=== PATIENT | male | born 1950 | race Caucasian/White ===

== ENCOUNTER 2022-12-01 12:14 | Emergency (ER) | payer MEDICARE, SELFPAY ==
[2022-12-01 12:35] VITALS: BP 127/69; PULSE 63; RESP 18; TEMP 36.1; O2SAT 99
--- NOTE | 2022-12-01 12:51 | ED.NAVMDI ---
HPI - Nausea/Vomiting/Diarrhea General Chief complaint: Nausea/Vomiting/Diarrhea Stated complaint: diarrhea History of Present Illness HPI Narrative: PATIENT PRESENTS WITH A HISTORY OF DIVERTICULOSIS AND THINKS HE IS HAVING A DIVERTICULITIS FLARE AT THIS TIME. GENERALIZED ABDOMINAL PAIN DIARRHEA ON OFF FOR THE PAST 2 WEEKS NO BLOOD IN STOOLS NO MUCUS IN STOOLS. NO HIGH FEVER. PATIENT STATES HE HAD MORE PEANUTS THAN USUAL AND THINKS THIS HE TRIGGERED HIS FLARE. PATIENT STATES HE HAS A GI SPECIALIST IN [place] AND HE WILL CALL [facility] FRIDAY MORNING. Related Data Home Medications Medication Instructions Recorded Confirmed amlodipine 5 mg tablet 5 mg PO DAILY 10/27/19 10/27/19 bupropion HCl 300 mg 24 hr tablet, 300 mg PO QAM 10/27/19 10/27/19 extended release clonazepam 1 mg tablet 1 mg PO DAILY PRN 10/27/19 10/27/19 gabapentin 300 mg capsule 300 mg PO TID 10/27/19 10/27/19 lamotrigine 100 mg tablet 100 mg PO TID 10/27/19 10/27/19 (Lamictal) lisinopril 10 mg tablet 10 mg PO DAILY 10/27/19 10/27/19 meloxicam 15 mg tablet 15 mg PO DAILY 10/27/19 10/27/19 metoprolol tartrate 25 mg tablet 25 mg PO DAILY 10/27/19 10/27/19 omeprazole 20 mg capsule,delayed 20 mg PO DAILY 10/27/19 10/27/19 release pravastatin 40 mg tablet 40 mg PO DAILY 10/27/19 10/27/19 tramadol 50 mg tablet 50 mg PO Q6H PRN 10/27/19 10/27/19 Allergies Allergy/AdvReac Type Severity Reaction Status Date / Time citalopram Allergy Unknown Hives Verified 04/01/17 06:57 hydralazine Allergy Unknown Hives Verified 04/01/17 14:05 Penicillins Allergy Unknown hives Verified 04/01/17 06:57 CITALOPRAM HYDROBROMIDE Allergy Intermediate hives Uncoded 09/29/15 16:40 Review of Systems Review of Systems: CONSTITUTIONAL: DENIES FEVER, CHILLS, OR SWEATS. EYES: DENIES VISUAL CHANGES, REDNESS, OR DISCHARGE. ENT: DENIES RHINORRHEA, CONGESTION, SORE THROAT, OR OTALGIA. CARDIOVASCULAR: DENIES CHEST PAIN, PALPITATIONS, OR EDEMA. RESPIRATORY: DENIES COUGH OR DYSPNEA. GASTROINTESTINAL: DENIES ABDOMINAL PAIN, NAUSEA, VOMITING, OR DIARRHEA. GENITOURINARY: DENIES DYSURIA OR HEMATURIA. SKIN: DENIES RASH OR ITCHING. MUSCULOSKELETAL: DENIES BACK PAIN, JOINT PAIN, OR MYALGIA. NEUROLOGIC: DENIES HEADACHE, NUMBNESS, OR WEAKNESS. PSYCHIATRIC: DENIES ANXIETY OR DEPRESSION. [facility] Family History Family History (Updated 04/01/17 @ 06:51 by DOCTOR UNKNOWN) Sibling Diabetes mellitus Family history of mental disorder, Onset Age: 63 Family history of cardiovascular disease, Onset Age: 63 Acute myocardial infarction Family history of malignant neoplasm Mother Family history of mental disorder, Onset Age: 56 Other Family history of seizure disorder Social History Social History Smoking status: Former smoker Smoking end date: 03/10/78 Alcohol intake: current Comments AT TIME OF SIGNATURE, AGREE WITH NURSING PAST MEDICAL, SURGICAL, SOCIAL AND FAMILY HISTORY. THERE IS NO RELEVANT FAMILY HISTORY PERTINENT TO THE PRESENTING COMPLAINT Exam Narrative: GENERAL: WELL-APPEARING, WELL-NOURISHED, AND IN NO ACUTE DISTRESS. HEAD: NORMOCEPHALIC, ATRAUMATIC. EYES: PERRLA AND EOMI. ENT: NARES CLEAR, NO RHINORRHEA OR EPISTAXIS. MUCOUS MEMBRANES MOIST. NECK: SUPPLE. CHEST: CLEAR TO AUSCULTATION. NO RESPIRATORY DISTRESS. HEART: REGULAR RATE AND RHYTHM. NO MURMUR HEARD. NORMAL PERIPHERAL PULSES. ABDOMEN: SOFT, NONTENDER, NONDISTENDED, NORMAL ACTIVE BOWEL SOUNDS. EXTREMITIES: NORMAL RANGE OF MOTION. NO EDEMA. SKIN: WARM, DRY, NO RASH. NEURO: NO FOCAL DEFICITS. ALERT AND ORIENTED X3. JYOTI COMA SCALE EYE OPENING: SPONTANEOUS 4 JYOTI COMA SCALE MOTOR: OBEYS COMMANDS 6 JYOTI COMA SCALE VERBAL: ORIENTED 5 JYOTI COMA SCALE TOTAL 15 Course Course Level of Care: Express Care Visit Vital Signs Vital signs: Vital Signs Temperature 36.1 C L 12/01/22 12:35 Pulse Rate 63 12/01/22 12:35 Respiratory Rate 18 12/01/22 12:35 Blood Pressur
== END 2022-12-01 13:00 | disposition home or self-care (01) ==
PROVIDERS: Emergency Provider Nurse Practitioner Family
DX: K57.92 Diverticulitis of intestine, part unspecified, without perforation or abscess without bleeding (principal); R19.7 Diarrhea, unspecified; Z87.891 Personal history of nicotine dependence
CPT/HCPCS: 99213; G0463

== ENCOUNTER 2024-07-15 17:44 | Emergency (ER) | payer MEDICARE, SELFPAY ==
--- NOTE | ~2024-07-15 | XR_ITS ---
Exam: Abdomen 1V HISTORY: abdominal pain COMPARISON: None. TECHNIQUE: Supine images of the abdomen FINDINGS: Bowel gas pattern is nonspecific and non-obstructive. There is no free air or deep sulci. No pathologic calcifications are seen. Lung bases are unremarkable. IMPRESSION: Nonspecific, nonobstructive bowel gas pattern. If clinical suspicion persists, cross-sectional imaging (contrast enhanced CT examination of the abdo men and pelvis) is suggested for further evaluation. Reviewed, dictated and finalized at location A. IMPRESSION: Nonspecific, nonobstructive bowel gas pattern. If clinical suspicion persists, cross-sectional imaging (contrast enhanced CT e xamination of the abdomen and pelvis) is suggested for further evaluation.
--- OUTSIDE RECORDS SUMMARY | 2024-07-15 17:47 | XMS_ITS | Encounter Summary ---
Author Organization [facility] Address [address] [place] [address] Care Team Providers Care Photograph Editor Name Role Phone Mirian Wallace MD Primary Care Provider [phone] Reason for Visit * Reason Onset Date Comments Sheduling Procedure 12/18/2023 Encounter Details Date Type Department Care Team (Late st Contact Info) Description 12/18/2023 Telephone [facility] Heart and Vascular - [place] [address] [place] [address] Bill De Anda MD [address] [place] [address] Sheduling Procedure Social History Tobacco Use Types Packs/Day Years Used Date Smoking Tobacco: Former Cigarettes 2 20 1 04/28/1957 - 02/25/1978 Smokeless Tobacco: Never Alcohol Use Standard Drinks/Week Comments Yes 24 (1 standard drink = 0.6 oz pu re alcohol) Financial Resource Strain Answer Date R ecorded How hard is it for you to pa y for the very basics like food, housing, medical care, and heating? Somewhat hard 01/11/2022 Food Insecurity Answer Date Recorded In the past 12 months, have you worried that your food would run out before you had money to buy more? Never true 01/11/2022 In the past 12 months, did y ou run out of food and didn't have money to buy more? Never true 01/11/2022 Transportation Needs Answer Date Record ed In the past 12 months, has l ack of transportation kept you from medical appointments or from getting medications? No 01/11/2022 Lack of Transportation (Non-Medical) Not on file 01/11/2022 Feeling Safe Answer Date Recorded Are you in a relationship wi th someone who hurts you emotionally and/or physically? 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 documented in this encounter Plan of Treatment Upcoming Encounters Date Type Department Care Team (Late st Contact Info) Description 08/11/2024 3:15 PM CDT Office Visit [facility] HEART AND VASCULAR EP AT [address] [place] [phone] Bill De Anda MD [address] [place] [address] [address] [place] [phone] 08/18/2024 11:30 AM CDT Office Visit [facility] Primary Care - [address] [address] Mirian Wallace MD [address] [place] [address] 09/15/2024 11:30 AM CDT Office Visit [facility] HEART AND VASCULAR - [address] [address] Flo Donahue MD [facility] [address] [facility] [address] [place] [address] 09/21/2024 11:00 AM CDT Office Visit [facility] Neurology [address] [facility] [address] [place] [address] Ashley Holloway, [facility] [address] [facility] [address] [place] [address] 10/05/2024 1:15 PM CDT Office Visit [facility] GASTROENTEROLOGY - [address] [facility] [address] [address] [facility] [address] [place] [phone] Konrad Aburto, [facility] [address] [facility] [address] [place] [address] 11/26/2024 1:00 PM CDT Office Visit [facility] Pulmonology [facility] [address] [facility] [address] [place] [address] Silvio Avalos, [facility] [address] [place] [phone] 12/27/2024 1:30 PM CDT Office Visit [facility] HEART AND VASCULAR EP AT [facility] [address] [facility] [address] [place] [address] Guerrero Lind MD [address] [facility] [address] [place] [address] 09/22/2025 11:00 AM CDT Office Visit [facility] Neurology [address] [facility] [address] [place] [address] Carmine Castano MD [address] [facility] [address] [place] [address] documented as of this encounter Visit Diagnoses Not on filedocumented in this encounter Additional Health Concerns Infection Onset Date Last Indicated Resolved Time R/O C. diff 01/23/2024 01/22/2024 01/23/2024 5:28 PM ASSISTANT SUPERINTENDENT FOR CURRICULUM Assessment Noted Time PHQ-9 Depression Total Score: 2 08/08/19 24 3:47 PM CDT documented as of this encounter Care Teams Photograph Editor Relationship Specialty [place] [address] [address] PCP - General 05/07/12 documented as of this encounter
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
--- OUTSIDE RECORDS SUMMARY | 2024-07-15 17:47 | XMS_ITS | Encounter Summary ---
Author Organization [facility] Address 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 Gender Identity Not on file Sexual Orientation Not on file documented as of this encounter Plan of Treatment Upcoming Encounters Date Type Department Care Team (Late st Contact Info) Description 08/11/2024 3:15 PM CDT Office Visit [facility] HEART AND VASCULAR EP AT [address] [place] [address] Bill De Anda MD [facility] [address] [facility] 2014 [place] [address] 08/18/2024 11:30 AM CDT Office Visit [facility] Primary Care - [facility] [id number] [place] [address] [place] [address] [phone] 09/15/2024 11:30 AM CDT Office Visit [facility] HEART AND VASCULAR - [place] [address] [address] [facility] 100 [place] [address] Flo Donahue MD [address] [facility] [address] [place] [address] 09/21/2024 11:00 AM CDT Office Visit [facility] Neurology [facility] [address] [facility] [address] [place] [address] Ashley Holloway, [facility] [address] [facility] [address] [place] [address] 10/05/2024 1:15 PM CDT Office Visit [facility] GASTROENTEROLOGY - [address] [facility] [address] [phone] Konrad Aburto, [facility] [address] [facility] 102 [place] [address] 11/26/2024 1:00 PM CDT Office Visit [facility] Pulmonology [facility] [address] [facility] [address] [place] [address] Silvio Avalos, [facility] [address] [facility] [place] [address] 12/27/2024 1:30 PM CDT Office Visit [facility] HEART AND VASCULAR EP AT [facility] [address] [facility] [address] [place] [address] Guerrero Lind MD [address] [facility] [address] [place] [address] 09/22/2025 11:00 AM CDT Office Visit [facility] Neurology [address] [facility] [address] [place] [address] Carmine Castano MD [address] [facility] [address] [place] [address] documented as of this encounter Visit Diagnoses Diagnosis Urticaria, unspecified- Primary documented in this encounter Additional Health Concerns Infection Onset Date Last Indicated Resolved Time C Diff Comment:10/26/15 08/08/2017-outside 60 days from last positive culture [email or web address].resolved. 10/27/2015 10/27/2015 06/0 03/2017 3:50 PM CDT R/O COVID-19 12/10/2019 12/10/2019 12/13/2019 1:16 AM CDT COVID-19 12/11/2019 12/11/2019 01/10/2020 1:16 AM AUTO PAINTER HELPER R/O C. diff 08/04/2021 08/03/2021 08/04/2021 2:45 PM CDT R/O Respiratory 05/13/2022 05/13/2022 05/14/2022 1 2:32 AM AUTO PAINTER HELPER R/O GI Pathogen 05/13/2022 05/13/2022 05/14/2022 1 2:32 AM AUTO PAINTER HELPER R/O C. diff 12/09/2022 12/09/2022 12/10/2022 1:06 PM CDT R/O C. diff 01/23/2024 01/22/2024 01/23/2024 5:28 PM AUTO PAINTER HELPER documented as of this encounter Care Teams Dye Range Tender Relationship Specialty [place] [address] [facility] 100 [place] [address] PCP - General 05/07/12 documented as of this encounter
--- OUTSIDE RECORDS SUMMARY | 2024-07-15 17:47 | XMS_ITS | Encounter Summary ---
Author Organization [facility] Address [address] [place] [address] Care Team Providers Care Masonry Instructor Name Role Phone Mirian Wallace MD Primary Care Provider [phone] Encounter Details Date Type Department Care Team (Late st Contact Info) Description 07/14/2024 Abstract [facility] Primary Care - [facility] [address] [address] [place] [address] [address] Social History Tobacco Use Types Packs/Day Years [...] on file Legal Sex Male 4:59 AM SHOP HELPER Gender Identity Not on file Sexual Orientation Not on file documented as of this encounter Plan of Treatment Upcoming Encounters Date Type Department Care Team (Late st Contact Info) Description 08/11/2024 3:15 PM CDT Office Visit [facility] HEART AND VASCULAR EP AT [facility] [address] [facility] [address] [place] [phone] Bill De Anda MD [address] [facility] [address] [place] [address] 08/18/2024 11:30 AM CDT Office Visit [facility] Primary Care - [facility] [address] [place] [address] [place] [address] [address] 09/15/2024 11:30 AM CDT Office Visit [facility] HEART AND VASCULAR [place] [id number] [place] [address] Flo Donahue MD [address] [facility] [address] [place] [address] 09/21/2024 11:00 AM CDT Office Visit [facility] Neurology [address] [facility] [address] [place] [address] Ashley Holloway, [facility] [address] [facility] [address] [place] [address] 10/05/2024 1:15 PM CDT Office Visit [facility] GASTROENTEROLOGY - [address] [facility] 102 [address] [facility] 102 [place] [address] Konrad Aburto, [facility] [address] [facility] 102 [place] [address] 11/26/2024 1:00 PM CDT Office Visit [facility] Pulmonology [facility] [address] [facility] [address] [place] [address] Silvio Avalos, [facility] [address] [facility] [place] [address] 12/27/2024 1:30 PM CDT Office Visit [facility] HEART AND VASCULAR EP AT [facility] [address] [facility] [address] [place] [address] Guerrero Lind MD [address] [facility] [address] [place] [address] 09/22/2025 11:00 AM CDT Office Visit [facility] Neurology [address] [facility] [address] [place] [address] Carmine Castano MD [address] [facility] [address] [place] [address] documented as of this encounter Visit Diagnoses Not on filedocumented in this encounter Care Teams Masonry Instructor Relationship Specialty [place] [address] [facility] [address] [place] [address] PCP - General 05/07/12 documented as of this encounter
--- OUTSIDE RECORDS SUMMARY | 2024-07-15 17:47 | XMS_ITS | Clinical Summary ---
Author Organization [facility] Address [address] [place] [address] Care Team Providers Care Director Of Infection Prevention Name Role Phone Unavailable Primary Care Provider Unavailabl e Social History Tobacco Use Types Packs/Day Years Used Date Smoking Tobacco: Never Assessed Sex and Gender Information Value Date Recorded Sex Assigned at Not on file Legal Sex Male 10:17 PM CDT Gender Identity Not on file Sexual Orientation Not on file Plan of Treatment Health Maintenance Due Date Last Done Comments Hepatitis C Virus (HCV) Screening 1950 Colonoscopy 1994 Colorectal Cancer Screening 1994 Cologuard 11/13/1999 Immunochemical Fecal Occult Blood 11/13/1999 Pneumococcal Immunization (5 0+ years) (1 of 1 - PCV) 11/13/1999 Zoster Immunization (1 of 2) 11/13/1999 Influenza Immunization (#1) 11/09/202312/09, 12/19/2014, 02/20/2013 SARS-COV-2 Immunization ( season) 2023 12/07/2020, 05/30/2020, 04/19/2020 Respiratory Syncytial Virus (RSV) Immunization (Adult) (1 - 1-dose 75+ series) 2024 DTaP/Tdap/Td Immunization Discontinued 02/17/2017 TdaP Immunization Completed 02/17/2017 Hepatitis B Immunization Aged Out No longer eligible based on patient's age to complete this topic Meningococcal Immunization (ACWY) Aged Out No longer eligible based on patient's age to complete this topic Rotavirus Immunization Aged Out No lo nger eligible based on patient's age to complete this topic
--- OUTSIDE RECORDS SUMMARY | 2024-07-15 17:47 | XMS_ITS | Continuity of Care Document ---
Author Organization [facility] Address [address] [place] [address] [address] [place] [address] Phone Care Team Providers Care Upholsterer Outside Name Role Phone Short PT, Kathleen Unavailable Unavailable Procedures Procedure Date Therapeutic Activities Neuromuscular Re-Ed Manual Therapy Manual Therapy Neuromuscular Re-Ed Hot or Cold Pack Therapeutic Activities Therapeutic Activities Neuromuscular Re-Ed Manual Therapy Neuromuscular Re-Ed Manual Therapy Hot or Cold Pack Neuromuscular Re-Ed Manual Therapy Therapeutic Activities Manual Therapy Therapeutic Activities Hot or Cold Pack Therapeutic Activities Hot or Cold Pack Neuromuscular Re-Ed Manual Therapy Therapeutic Activities PT Evaluation Moderate Complexity Manual Therapy Therapeutic Exercise THERAPEUTIC EXERCISES NEUROMUSCULAR RE-ED Carrying, Moving And Handling Objects-Di mihir Carrying, Moving And Handling Objects-Go al Medications Name Dose Freq Route DOC Nov THERAPEUTIC EXERCISES NEUROMUSCULAR RE-ED THERAPEUTIC EXERCISES NEUROMUSCULAR RE-ED THERAPEUTIC EXERCISES NEUROMUSCULAR RE-ED PT EVALUATION THERAPEUTIC EXERCISES Carrying, Moving And Handling Objects-Cu rrent Carrying, Moving And Handling Objects-Go al Medications Name Dose Freq Route DOC Oct BMI High F/U Plan DOC No Falls or 1 Fall w/o Injury Screened f or Fall Risk Functional Outcome Assessmen t documented, deficits identified, treatment plan es Advance Directives Directive Yes / No Effective Date File Name No Information Encounters Encounter Description Practice Location Reason(s) For Visit Diagnoses Date Provider Providers Copied on Encounter [facility], [id number], tel:[phone] [place] No Information Mar-1 6202 2 Short Kathleen. . Referring Provider: Shukri Shannon [address], [place], [address]. tel:[phone] [facility] [address], [id number], tel:[phone] [place] No Information Mar-0 8202 2 Anusha Grimes. [address] [facility], [address], [place], [facility], [place]. tel:[phone] Referring Provider: Shukri Shannon [address], [place], [address]. tel:[phone] [facility] [address] [place] [address], [place], [place], [id number], tel:[phone] Pete No Information Mar-0 4-202 2 [place]. . Referring Provider: Shukri Shannon [address], [place], [address]. tel:[phone] [facility] [place] [address], [place], [place], [id number], tel:[phone] [place] No Information May-0 2 Schranck Cornelio. [address] [place] [address], [address], [place], [place], [facility], . tel: [phone] Referring Provider: Shukri Shannon, [address], [place], [address]. tel:[phone] [facility] [facility], [place], [place], [id number], [place] tel:[phone] [place] No Information 2 [place]. . Referring Provider: [address], [place], [address]. tel:[phone] [facility], [address] [facility], [place], [place], [id number], tel:[phone] [place] No Information 2 Anusha Grimes. [address] [place] [address], [address], [place], [place], [facility], . tel: [phone] Referring Provider: [address], [place], [address]. tel:[phone] [facility] [facility], [place], [place], [id number], [place] tel:[phone] [place] No Information 2 Garrels Itzel. . Referring Provider: [address], [place], [address]. tel: [facility], [place], [place], [id number], [place] tel:[phone] Pete No Information 2 [place]. . Referring Provider: [address], [place], [address]. tel: [facility], [place], [place], [id number], tel:[phone] [place] No Information Sep-2 0-201 6 David Turner , [place], . [facility] [place] [address], [place], [place], [id number], tel:[phone] [place] No Information Sep-0 8-201 6 David [place] , [place], [place]. [facility] [place] [address], [place], [place], [id number], tel:[phone] [place] No Information Sep-0 6-201 6 David Turner , [place], . [facility], [address] [place] [address], [place], [place], [id number], tel:[phone] [place] Other spondylosis with myelopathy, lumbar regionLumbago with sciatica, left sideOther intervertebral disc degeneration, lumbar regionPain, unspecified Sep-0 1-201 6 David Turner , [place], . [facility], [address] [place] [address], [place], [place], [id number], tel:[phone] [place] No Information Aug-3 0-201 6 David Turner [place], [place], . Family History Family Member Type Diagnosis Age At Onset No Information Payers Payer name Insurance type Covered republican ID Authorbulla tirenu(s) Medicare [place] [id number] [employer] Senior Supplemental [id number] Social History Type Description Quantity Date Captured Comments Sex Male Smoking Status No Information Chief Complaint And Reason For Visit No Information Reason For Referral Reason For Referral No Information History Of Present Illness Encounter Date Complaint History Of Prese nt Illness No Information Functional Status Date Functional Assessmen t No Information Instructions Date Instruction Additional Infor mation Giving encouragement to exercise Related to Overweight Giving encouragement to exercise Related to Overweight Assessments Type Assessment Date No Information Patient Care Teams Name Effective Dates (start - stop) Status Members No Information
--- OUTSIDE RECORDS SUMMARY | 2024-07-15 17:47 | XMS_ITS | Clinical Summary ---
Author Organization [facility] Address [address] [facility] [place] [address] Care Team Providers Care Grinding Wheel Facer Name Role Phone Unavailable Primary Care Provider Unavailabl e Source Comments [facility],non-owned Affiliates and Associated Physician Practices is amultiple site organization consisting of ambulatory clinics and hospital sitesin [place], [place], [place] and [place]. This disclosure is being madepursuant to the Care Everywhere program and may not contain all information available regarding this patient. 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 Gender Identity Not on file Sexual Orientation Not on file Plan of Treatment Health Maintenance Due Date Last Done Comments COLOGUARD (AGES 45-75) - COL ON CA SCREENING 1949 COLON MONITORING 1949 COLONOSCOPY - COLON CA SCREENING 1949 CT COLONOGRAPHY - COLON CA SCREENING 1949 Colorectal Cancer Screening 1949 FIT - COLON CA SCREENING 1949 FLEX SIG - COLON CA SCREENING 1949 LIPID TESTING 1949 HEPATITIS C SCREENING 11/08/1967 DTAP/TDAP/TD VACCINES (1 - Tdap) 1968 PNEUMOCOCCAL VACCINE 50+ (1 of 1 - PCV) 11/13/1999 ZOSTER VACCINE (1 of 2) 11/13/1999 COVID-19 VACCINE (1 - 2023-2 5 season) 2023 DEPRESSION SCREENING 03/10/2024 MEDICARE AWV CALENDAR YEAR 2024 INFLUENZA VACCINE (Season Ended) 2024 Respiratory Syncytial Virus (RSV) Vaccine Pt: or over 60 yrs (1 - 1-dose 75+ series) 2024 HEPATITIS B VACCINE Aged Out No longe r eligible based on patient's age to complete this topic HIB VACCINE Aged Out No longer eligi ble based on patient's age to complete this topic HPV VACCINE Aged Out No longer eligi ble based on patient's age to complete this topic MENINGOCOCCAL (Group B) VACC INE SHARED DECISION-MAKING Aged Out No longer eligibl e based on patient's age to complete this topic MENINGOCOCCAL GROUPS A/C/Y/W VACCINE Aged Out No longer eligible b ased on patient's age to complete this topic Procedures Procedure Name Priority Date/Time Associated Diagnosis Comments DERMATOPATHOLOGY Routine 05/04/2024 10:0 3 AM BIAS MACHINE OPERATOR Neoplasm of uncertain behavior of skin from Last 3 Months Results * DERMATOPATHOLOGY (05/04/2024 10:03 AM BIAS MACHINE OPERATOR) Case Report Dermatopathology Report Case: [id number] Authorizing Provider: Jose Brito MD Collected: 05/04/2024 10:03 AM Ordering Location: [facility] - Received: 05/07/2024 06:38 AM DermPath Lab Pathologist: Jana Brown MD Specimen: Skin, left anterior jaw 12:56 PM BIAS MACHINE OPERATOR DERMATOPATHOLOGY LABORATORY Final Diagnosis Specimen A. SKIN, left anterior jaw: DERMAL SCAR, PRESENT AT THE BASE RESIDUAL SQUAMOUS PROLIFERATION NOT IDENTIFIED (L90.5) 12:56 PM BIAS MACHINE OPERATOR DERMATOPATHOLOGY LABORATORY Clinical History Atypical Squamous Proliferation Prior biopsy 12:56 PM BIAS MACHINE OPERATOR DERMATOPATHOLOGY LABORATORY Gross Description Specimen A: Received is one formalin filled container labeled with the patient's name and designated left anterior jaw. The specimen consists of a shave biopsy measuring 86x66p1 mm. Jar 0. 12:56 PM BIAS MACHINE OPERATOR DERMATOPATHOLOGY LABORATORY Microscopic Description Specimen A. SKIN, left anterior jaw: There are elongated blood vessels, some of which are oriented perpendicular to the skin surface, which is present at the base of the specimen. No residual squamous proliferation is identified. 5 12:56 PM [facility] DERMATOPATHOLOGY LABORATORY Disclaimer An external and internal positive and negative controls are appropriate for the histochemical, immunohistochemical and immunofluorescence stain(s) in this case (if any), except where stated explicitly. The performance characteristics of the stain(s) cited in this report were developed and its performance characteristic determined by the Dermatopathology Laboratory at [facility], directed by Dr. Collin Mckeon. These tests need not be, and therefore are not, approved by the [place] Food and Drug Administration. The tests are used for clinical purposes. Billing Codes Specimen Charges Stain Charges 54440 1 5 12:56 PM [facility] DERMATOPATHOLOGY LABORATORY Embedded Images 5 12:56 PM [facility] DERMATOPATHOLOGY LABORATORY Pathology/Cytolo gy TISSUE SPECIMEN FROM SKIN / Unknown 05/04/2024 10:03 AM BIAS MACHINE OPERATOR 05/07/2024 6:38 AM BIAS MACHINE OPERATOR Jose Brito MD LAB - PATHOLOGY/CYTOLOGY BISI GARCIA Final Result DERMATOPATHOLOGY LABORATORY [facility] - Department of Dermatology [facility] Medicine [address] [place] [address], [address] [phone] from Last 3 Months [place] [address] [employer] MANAGED MEDICARE ADV
--- OUTSIDE RECORDS SUMMARY | 2024-07-15 17:47 | XMS_ITS | Encounter Summary ---
Author Organization [facility] Address [address] [place] [address] Care Team Providers Care Deflash And Wash Operator Name Role Phone Unavailable Primary Care Provider Unavailabl e Encounter Details Date Type Department Care Team (Late st Contact Info) Description 07/22/2023 Lab Requisition [facility] - DermPath Lab [address] [place] [phone] Birdie Brito APRN-CNP [facility] DERMATOLOGY [address] [place] [address] Neoplasm of uncertain behavior of skin Social History Tobacco Use Types Packs/Day Years Used Date Smoking Tobacco: Never Assessed Sex and Gender Information Value Date Recorded Sex Assigned at Not on file 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 Gender Identity Not on file Sexual Orientation Not on file documented as of this encounter Plan of Treatment Not on file documented as of this encounter Procedures Procedure Name Priority Date/Time Associated Diagnosis Comments DERMATOPATHOLOGY Routine 07/22/2023 12:0 0 AM CDT Neoplasm of uncertain behavior of skin documented in this encounter Results * DERMATOPATHOLOGY (07/22/2023 12:00 AM CDT) Case Report Dermatopathology Report Case: [id number] Authorizing Provider: Birdie Brito, Collected: 07/22/2023 12:00 AM FREIGHT ELEVATOR ERECTORAPPLE Ordering Location: [facility] - Received: 07/23/2023 02:55 PM DermPath Lab Pathologist: Graciela Cortes MD Specimen: Skin, left lateral religious 12:58 PM CDT DERMATOPATHOLOGY LABORATORY Final Diagnosis Specimen A. 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 The specimen consists of a shave biopsy measuring 10x7x2 mm. Jar 0. 12:58 PM CDT DERMATOPATHOLOGY LABORATORY Microscopic Description Specimen A. SKIN, left lateral religious: The epidermis shows parakeratosis, full thickness disorderly maturation of keratinocytes, mitoses at different levels, and dyskeratotic cells. 12:58 PM CDT DERMATOPATHOLOGY LABORATORY Disclaimer An external and internal positive and negative controls are appropriate for the histochemical, immunohistochemical and immunofluorescence stain(s) in this case (if any), except where stated explicitly. The performance characteristics of the stain(s) cited in this report were developed and its performance characteristic determined by the Dermatopathology Laboratory at [facility], directed by Dr. Collin Mckeon. These tests need not be, and therefore are not, approved by the [place] Food and Drug Administration. The tests are used for clinical purposes. Billing Codes Specimen Charges Stain Charges 45981 1 12:58 PM CDT DERMATOPATHOLOGY LABORATORY Embedded Images 12:58 PM CDT DERMATOPATHOLOGY LABORATORY Pathology/Cytolog y TISSUE SPECIMEN FROM SKIN / Unknown 07/22/2023 07/23/2023 2:55 PM CDT us Birdie Brito FREIGHT ELEVATOR ERECTOR-FARE ENFORCEMENT OFFICER LAB - PATHOLOGY/CY TOLOGY ORDERABLES Final Result DERMATOPATHOLOGY LABORATORY [facility] - Department of Dermatology [address] [place] [address], [facility] [phone] documented in this encounter Visit Diagnoses Diagnosis Neoplasm of uncertain behavior of skin documented in this encounter
--- OUTSIDE RECORDS SUMMARY | 2024-07-15 17:47 | XMS_ITS | Encounter Summary ---
Author Organization [facility] Address [address] [place] [address] Care Team Providers Care Psych Specialist Name Role Phone Mirian Wallace MD Primary Care Provider [phone] Encounter Details Date Type Department Care Team (Late st Contact Info) Description 12/16/2022 Abstract [facility] Neurosurgery - Medical [place] [address] [facility] [address] [place] [address] Aman Justice MD [address] [facility] [address] [place] [address] Social History Tobacco Use Types Packs/Day Years [...] on file Legal Sex Male 4:59 AM INSULATION PACKER Gender Identity Not on file Sexual Orientation Not on file documented as of this encounter Plan of Treatment Upcoming Encounters Date Type Department Care Team (Late st Contact Info) Description 08/11/2024 3:15 PM CDT Office Visit [facility]ASCULAR EP AT [facility] [address] [facility] [address] [place] [address] Bill De Anda MD [address] [facility] [address] [place] [address] 08/18/2024 11:30 AM CDT Office Visit [facility] [address] [address] [place] [address] [address] 09/15/2024 11:30 AM CDT Office Visit [facility] [place] [address] [address] Flo Donahue MD [address] [facility] [address] [place] [address] 09/21/2024 11:00 AM CDT Office Visit [facility] Neurology [address] [facility] [address] [place] [address] Ashley Holloway, ECONOMIC ANALYSIS DIRECTOR [address] [facility] [address] [place] [address] 10/05/2024 1:15 PM CDT Office Visit [facility] GASTROENTEROLOGY - [address] [facility] [address] [address] [facility] 102 [place] [address] Konrad Aburto, [facility] [address] [facility] [address] [place] [address] 11/26/2024 1:00 PM CDT Office Visit [facility] Pulmonology [facility] [address] [facility] [address] [place] [address] Silvio Avalos, [facility] [address] [facility] [place] [address] 12/27/2024 1:30 PM CDT Office Visit [facility] EP AT [facility] [address] [facility] [address] [place] [address] Guerrero Lind MD [address] [facility] [address] [place] [address] 09/22/2025 11:00 AM CDT Office Visit [facility] Neurology [address] [facility] [address] [place] [address] Carmine Castano MD [address] [facility] [address] [place] [address] documented as of this encounter Visit Diagnoses Not on filedocumented in this encounter Additional Health Concerns Infection Onset Date Last Indicated Resolved Time R/O C. diff 01/23/2024 01/22/2024 01/23/2024 5:28 PM INSULATION PACKER Assessment Noted Time PHQ-9 Depression Total Score: 1 01/12/20 22 12:56 PM CDT documented as of this encounter Care Teams Psych Specialist Relationship Specialty [place] [address] [facility] [address] [place] [address] PCP - General 05/07/12 documented as of this encounter
--- OUTSIDE RECORDS SUMMARY | 2024-07-15 17:47 | XMS_ITS | Encounter Summary ---
Author Organization [facility] Address [address] [place] [address] Care Team Providers Care Demand Generator Manager Name Role Phone Mirian Wallace MD Primary Care Provider [phone] Encounter Details Date Type Department Care Team (Latest Contact Info) Description 03/30/2024 Results Follow-Up [facility] GASTROENTEROLOGY - [address] [facility] [address] [address] [facility] [address] [place] [address] Nhan Ortiz, [address] [facility] [address] [place] [address] [place] ABDOMEN LIMITED, HEPATITIS B CORE AB TOTAL, HEPATITIS B SURFACE ANTIGEN, Additional followed-up results: 7 Social History Tobacco Use Types Packs/Day Years [...] No 03/31/2024 Food Insecurity Answer Date Recorded Social/Environmental Concerns No concerns Transportation Needs Answer Date Record ed Social/Environmental Concerns No concerns Housing Stability Answer Date Recorded Social/Environmental Concerns No concerns Utility Needs Answer Date Recorded Social/Environmental Concerns No concerns Sex and Gender Information Value Date Recorded Sex Assigned at Not on file 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 [address] [facility] [address] [place] [address] Bill De Anda MD [address] [facility] [address] [place] [address] 08/18/2024 11:30 AM CDT Office Visit [facility] Primary Care - [address] [address] [place] Wallace [place] [id number] [place] [address] 09/15/2024 11:30 AM CDT Office Visit [facility] HEART AND VASCULAR - [place] [address] [place] [address] Flo Donahue MD [address] [facility] [address] [place] [address] 09/21/2024 11:00 AM CDT Office Visit [facility] Neurology [address] [facility] [address] [place] [address] Ashley Holloway, [facility] [address] [facility] [address] [place] [address] 10/05/2024 1:15 PM CDT Office Visit [facility] GASTROENTEROLOGY - [address] [facility] [address] [address] [facility] [address] [place] [address] Konrad Aburto, [facility] [address] [facility] [address] [place] [address] 11/26/2024 1:00 PM CDT Office Visit [facility] Pulmonology [facility] [address] [facility] [address] [place] [address] Silvio Avalos, [facility] [address] [facility] [place] [address] 12/27/2024 1:30 PM CDT Office Visit [facility] HEART AND VASCULAR EP AT [facility] [address] [facility] [address] [place] [address] Guerrero Lind MD [address] [facility] [address] [place] [address] 09/22/2025 11:00 AM CDT Office Visit [facility] Neurology [address] [facility] [address] [place] [address] Carmine Castano MD [address] [facility] [address] [place] [address] documented as of this encounter Visit Diagnoses Not on filedocumented in this encounter Additional Health Concerns Assessment Noted Time PHQ-9 Depression Total Score: 2 08/08/19 24 3:47 PM CDT documented as of this encounter Care Teams Demand Generator Manager Relationship Specialty Start Date End Date Rodrigo, [place] [address] [address] PCP - General 05/07/12 documented as of this encounter
--- OUTSIDE RECORDS SUMMARY | 2024-07-15 17:47 | XMS_ITS ---
Author Organization [facility] Address [address] [facility] [place] [address] Care Team Providers Care Supervisor Rod Placing Name Role Phone Cristina DEAN KELLY Primary Care Provider Unavaila Shukri Nice Unavailable [phone] REASON FOR VISIT FOLLOW UP Encounters Encounter Location Date Provider Diagnosis [facility] [address] [facility] [place] [address] [place] [address] 12/17/2023 Shukri Shannon PLAN OF TREATMENT No Information
--- OUTSIDE RECORDS SUMMARY | 2024-07-15 17:47 | XMS_ITS | Encounter Summary ---
Author Organization [facility] Address [address] [facility] [place] [address] Care Team Providers Care Door Puller Name Role Phone Unavailable Primary Care Provider Unavailabl e Encounter Details Date Type Department Care Team (Late st Contact Info) Description 01/22/2024 Lab Requisition [facility] - DermPath Lab [address] [place] [phone] Birdie Brito APRN-CNP [facility] DERMATOLOGY [address] [place] [phone] Neoplasm of uncertain behavior of skin Social History Tobacco Use Types Packs/Day Years Used Date Smoking Tobacco: Never Assessed Sex and Gender Information Value Date Recorded Sex Assigned at Not on file Legal Sex Male 6:23 PM CELL RELINER Gender Identity Not on file Sexual Orientation Not on file documented as of this encounter Plan of Treatment Not on file documented as of this encounter Procedures Procedure Name Priority Date/Time Associated Diagnosis Comments DERMATOPATHOLOGY Routine 01/22/2024 12:0 0 AM CELL RELINER Neoplasm of uncertain behavior of skin documented in this encounter Results * DERMATOPATHOLOGY (01/22/2024 12:00 AM CELL RELINER) Case Report Dermatopathology Report Case: [id number] Authorizing Provider: Birdie Brito, Collected: 01/22/2024 12:00 AM PUMP SERVICE SUPERVISOR-COILED TUBING SUPERVISOR Ordering Location: [facility] - Received: 01/23/2024 10:18 AM DermPath Lab Pathologist: Henrietta Carvalho MD Specimens: A) - Skin, left anterior jaw B) - Skin, left posterior jaw 2:41 PM CELL RELINER DERMATOPATHOLOGY LABORATORY Final Diagnosis Specimen A. 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 SKIN, left posterior jaw: GRANULOMATOUS DERMATITIS CONSISTENT WITH A RUPTURED CYST OR HAIR FOLLICLE (L72.0) DERMAL FIBROSIS (L90.5) 4 2:41 PM [facility] DERMATOPATHOLOGY LABORATORY Clinical History BCC 4 2:41 PM [facility] DERMATOPATHOLOGY LABORATORY Gross Description Specimen A: Received is one formalin filled container labeled with the patient's name and designated left anterior jaw. The specimen consists of a shave biopsy measuring 9x8x2 mm. Jar 0. Specimen B: Received is one formalin filled container labeled with the patient's name and designated left posterior jaw. The specimen consists of a shave biopsy measuring 9x8x2 mm. Jar 0. 2:41 PM [facility] DERMATOPATHOLOGY LABORATORY Microscopic Description Specimen A. SKIN, left anterior jaw: Sections show cystic and endophytic epidermal proliferation with areas of maturational disarray and nuclear pleomorphism of keratinocytes extending throughout the full thickness of the specimen. There is focal parakeratosis. The base of this lesion is not visualized. Neutrophils, histiocytes, and multinucleated giant cells are present within the adjacent dermis. There is also surrounding dermal fibrosis. Additional deeper sections were obtained and reviewed. COMMENT: The histological differential diagnosis are favored to represent a ruptured cyst with reactive atypia but a regressing keratoacanthoma cannot be excluded. Specimen B. SKIN, left posterior jaw: Neutrophils, histiocytes, and multinucleated giant cells are present within the dermis adjacent to a follicular structure. There is surrounding dermal fibrosis. 4 2:41 PM [facility] DERMATOPATHOLOGY LABORATORY Disclaimer An external and internal positive and negative controls are appropriate for the histochemical, immunohistochemical and immunofluorescence stain(s) in this case (if any), except where stated explicitly. The performance characteristics of the stain(s) cited in this report were developed and its performance characteristic determined by the Dermatopathology Laboratory at [facility], directed by Dr. Collin Mckeon. These tests need not be, and therefore are not, approved by the [place] Food and Drug Administration. The tests are used for clinical purposes. Billing Codes Specimen Charges Stain Charges 77719 97497 1 1 4 2:41 PM CELL RELINER DERMATOPATHOLOGY LABORATORY Embedded Images 4 2:41 PM CELL RELINER DERMATOPATHOLOGY LABORATORY Pathology/Cytology TISSUE SPECIMEN FROM SKIN / Unknown 01/22/2024 01/23/2024 10:18 AM CELL RELINER Miscellaneous samples (specimen) TISSUE SPECIMEN FROM SKIN / Unknown 01/22/2024 01/23/2024 10:18 AM CELL RELINER us Birdie Brito PUMP SERVICE SUPERVISOR-COILED TUBING SUPERVISOR LAB - PATHOLOGY/CY TOLOGY ORDERABLES Final Result DERMATOPATHOLOGY LABORATORY [facility] - Department of Dermatology [facility] Specialized Medicine [address] [place] [address], [address] [phone] documented in this encounter Visit Diagnoses Diagnosis Neoplasm of uncertain behavior of skin documented in this encounter
--- OUTSIDE RECORDS SUMMARY | 2024-07-15 17:47 | XMS_ITS ---
Author Organization [facility] Address [address] [facility] [place] [address] Care Team Providers Care C Java Developer Name Role Phone Cristina DEAN KELLY Primary Care Provider Unavaila Shukri Nice Unavailable [phone] REASON FOR VISIT FOLLOW UP Encounters Encounter Location Date Provider Diagnosis [facility] [address] [facility] [place] [address] [place] [address] 2023 Shukri Shnanon PLAN OF TREATMENT No Information
--- OUTSIDE RECORDS SUMMARY | 2024-07-15 17:47 | XMS_ITS | Clinical Summary ---
Author Organization [facility] Address [address] [place] [address] Care Team Providers Care Tinner Helper Name Role Phone Mirian Wallace MD Primary Care Provider [phone] Allergies Active Allergy Reactions Criticality Noted Date Comments Citalopram Hydrobromide Hives High 06/02/2012 Hydralazine Rash Low 06/03/2016 Penicillins Hives High 06/02/2012 Medications MULTIVITAMIN ORALIndications: Abscess of finger Take 1 Tablet by mouth daily. Active potassium chloride (K-DUR) 20 mEq Extended Release tablet Take 20 mEq by mouth daily. Active nitroglycerin (NITROSTAT) 0.4 mg Tablet, Sublingual Place 1 Tablet (0.4 mg) under tongue every 5 minutes as needed for Chest Pain. 28 Tablet 1 019 Active cyanocobalamin (VITAMIN B-12) 100 mcg tablet Take by mouth every 30 days. Reports monthly injection Active tiZANidine (ZANAFLEX) 4 mg Tablet TAKE 1 TABLET BY MOUTH EVERY 6 HOURS NEEDED FOR SPASM 20 Tablet 021 Active coenzyme Q10 200 mg Capsule Take 1 Capsule (200 mg) by mouth daily. 023 Active clindamycin phosphate (CLEOCIN T) 1 % Gel by See Admin Instructions route daily. 023 Active ketoconazole (NIZORAL) 2 % Cream by See Admin Instructions route see administration instructions. APPLY TOPICALLY TO THE AFFECTED AREA DAILY FOR 2 WEEKS 023 Active diclofenac sodium (VOLTAREN) 1 % gel APPLY EXTERNALLY TO THE AFFECTED AREA FOUR TIMES DAILY DIRECTED 023 Active DULoxetine (CYMBALTA) 60 mg Capsule, Delayed Release(E.C.)Ind ications:Neuropa thy,Paroxysmal atrial fibrillation (CMS/HCC) Take 1 Capsule (60 mg) by mouth daily. 90 Capsule 3 024 Active fluticasone propionate (FLONASE) 50 mcg/spray [place], Suspension nasal inhaler Administer 1 [place] in each nostril 2 times daily. 16 Gram 5 024 Active felodipine (PLENDIL) 10 mg Extended Release 24 hour tabletIndication s:Paroxysmal atrial fibrillation (CMS/HCC),Benign hypertension,Cor onary artery disease involving kake coronary artery of kake heart without angina pectoris TAKE 1 TABLET(10 MG) BY MOUTH DAILY 90 Tablet 2 024 Active meloxicam (MOBIC) 15 mg tablet TAKE 1 TABLET(15 MG) BY MOUTH DAILY 90 Tablet 3 024 Active sildenafiL, pulm.hypertensio n, (REVATIO) 20 mg Tablet TAKE 1 TO 5 TABLET(S) BY MOUTH PRIOR TO SEXUAL ACTIVITY NEEDED 30 Tablet 5 024 Active clonazePAM (KlonoPIN) 1 mg tabletIndication s:Generalized anxiety disorder TAKE 1/2 TO 1 TABLET(0.5 TO 1 MG) BY MOUTH EVERY NIGHT NEEDED FOR ANXIETY 30 Tablet 5 024 Active omeprazole (PriLOSEC) 40 mg Capsule, Delayed Release(E.C.) TAKE 1 CAPSULE(40 MG) BY MOUTH DAILY 100 Capsule 3 025 Active tamsulosin (FLOMAX) 0.4 mg capsuleIndicatio ns:Benign prostatic hyperplasia with nocturia TAKE 1 CAPSULE(0.4 MG) BY MOUTH DAILY 90 Capsule 1 025 Active evolocumab (Repatha SureClick) 140 mg/mL Pen Injector Inject 1 mL (140 mg) by subcutaneous injection every 2 weeks. 10 mL 11 025 Active pregabalin (LYRICA) 200 mg Capsule Take 1 Capsule (200 mg) by mouth every 12 hours. 180 Capsule 3 025 Active carvediloL (COREG) 3.125 mg tablet Take 1 Tablet (3.125 mg) by mouth 2 times daily with meals. 60 Tablet 4 025 Active rivaroxaban (XARELTO) 20 mg TabletIndication s:Paroxysmal atrial fibrillation (CMS/HCC),Candelario ry artery disease involving kake coronary artery of kake heart without angina pectoris Take 1 Tablet (20 mg) by mouth daily with supper. 90 Tablet 3 025 Active atorvastatin (LIPITOR) 20 mg tabletIndication s:Mixed hyperlipidemia TAKE 1 TABLET(20 MG) BY MOUTH DAILY 90 Tablet 1 025 Active lisinopriL (PRINIVIL) 40 mg tabletIndication s:Benign hypertension,Cor onary artery disease involving kake coronary artery of kake heart without angina pectoris TAKE 1 TABLET(40 MG) BY MOUTH DAILY 90 Tablet 1 025 Active tadalafil (CIALIS) 5 mg tablet TAKE 1 TABLET BY MOUTH ONCE DAILY NEEDED FOR ERECTILE DYSFUNCTION 30 Tablet 025 Active semaglutide (Ozempic) 0.25 mg or 0.5 mg (2 mg/3 mL) Pen Injector Inject 0.5 mg by subcutaneous injection every 7 days. 2 mL 025 2024 Active resmetirom (Rezdiffra) 100 mg Tablet Take 100 mg by mouth daily. 90 Tablet 025 2024 Active furosemide (LASIX) 20 mg tabletIndication s:Benign hypertension Take 1 Tablet (20 mg) by mouth daily. 90 Tablet 025 Active buPROPion HCL (WELLBUTRIN XL) 300 mg Extended Release 24 hour tabletIndication s:Recurrent major depressive disorder, in full remission Take 1 Tablet (300 mg) by mouth daily in the morning. 90 Tablet 3 025 Active busPIRone (BUSPAR) 15 mg TabletIndication s:Generalized anxiety disorder TAKE 1 TABLET(15 MG) BY MOUTH TWICE DAILY 180 Tablet 3 025 Active tadalafil (CIALIS) 5 mg tablet take 1 tablet by mouth once daily as needed for erectile dysfunction 30 Tablet 11 024 2024 Discontinued busPIRone (BUSPAR) 15 mg TabletIndication s:Generalized anxiety disorder TAKE 1 TABLET(15 MG) BY MOUTH TWICE DAILY 180 Tablet 1 024 2024 Discontinued(R eorder) furosemide (LASIX) 20 mg tabletIndication s:Benign hypertension TAKE 1 TABLET(20 MG) BY MOUTH DAILY 90 Tablet 025 2024 Discontinued(R eorder) semaglutide, weight loss, (WEGOVY) 1 mg/0.5 mL Pen Injector Inject 0.5 mL (1 mg) by subcutaneous injection every 7 days. 2 mL 11 025 2024 Discontinued buPROPion HCL (WELLBUTRIN XL) 300 mg Extended Release 24 hour tabletIndication s:Recurrent major depressive disorder, in full remission TAKE 1 TABLET BY MOUTH DAILY IN THE MORNING 90 Tablet 025 2024 Discontinued resmetirom (Rezdiffra) 100 mg Tablet Take 100 mg by mouth daily. 90 Tablet 025 2024 Discontinued buPROPion HCL (WELLBUTRIN XL) 300 mg Extended Release 24 hour tabletIndication s:Recurrent major depressive disorder, in full remission TAKE 1 TABLET BY MOUTH DAILY IN THE MORNING 90 Tablet 025 2024 Discontinued(R eorder) Active Problems Patient Care Coordination No te Formatting of this note migh t be different from the original. 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 He underwent a recent MRI - There is significant foramen stenosis. He has been having injections with some relief. Enteritis 02/21/2020 Moderate alcohol use disorder 01/07/2018 PAD (peripheral artery disease) 06/12/2017 Assessment & Plan (05/10/2020 12:19 PM PHYSICIAN CREDENTIALING SPECIALIST): Stable. He status post procedures, peripheral stents in both legs. Continue secondary prevention. . Coronary artery disease invo lving kake coronary artery of kake heart without angina pectoris 02/16/2015 Gout 11/01/2014 Generalized anxiety disorder 09/16/2011 Esophageal reflux 01/01/2011 Dyslipidemia 01/01/2011 Benign hypertension 01/01/2011 Recurrent major depressive disorder, in full rem ission 01/01/2011 Osteoarthritis 01/01/2011 Other organic sleep apnea 01/01/2011 Class 2 severe obesity with serious comorbidity and body mass index (BMI) of 38.0 to 38.9 in adult Resolved Problems Problem Noted Date Diagnosed Date Resolved Date Generalized abdominal pain 03/21/2024 0 03/24/2024 Diarrhea 03/21/2024 03/24/2024 Forgetfulness 09/19/2023 01/14/2024 terminal manager prescription benzodiazepine use 06/11/2019 04/19/2020 Obesity (BMI 35.0-39.9 without comorbidity) 04/30/2018 12/24/2022 Elevated liver enzymes 01/07/201802/06 Atherosclerosis with claudic ation of extremity 12/26/2016 10/29/2018 Type 2 diabetes mellitus wit h vascular disease 12/04/2016 12/24/2022 Assessment & Plan (05/10/2020 12:12 PM PHYSICIAN CREDENTIALING SPECIALIST): He is here today to follow up for diabetes mellitus. We discussed and reviewed the following issues Glucose control He has been following his home glucoses and weight. His last A1C is: Lab Results Component Value Date/Time HGBA1C 7.2 (H) 12/18/2016 04:36 AM TSWX2FBAR 5.4 09/24/2019 12:46 PM Wt Readings from Last 3 Encounters: 05/10/20 (!) 137 kg (302 lb) 03/01/20 (!) 139.3 kg (307 lb) 02/28/20 (!) 139.3 kg (307 lb) Macrovascular disease prevention Because this patient has diabetes mellitus he falls under the category of secondary prevention of atherosclerotic disease. BP Readings from Last 3 Encounters: 05/10/20 120/80 03/01/20 (!) 167/81 02/28/20 124/60 He is taking a statin. Lab Results Component Value Date/Time CHOLTOT 159 11/09/2015 12:01 PM HDL 51 11/09/2015 12:01 PM LDLCALC 88 11/09/2015 12:01 PM TRIGLYCERIDE 99 11/09/2015 12:01 PM Microvascular disease prevention He has had an eye exam in the past 12 months. Latest renal function tests: Lab Results Component Value Date/Time CREAT 1.10 10/13/2019 02:05 PM GFR >60 10/13/2019 02:05 PM He is taking an STARR inhibitor. He has not had symptoms of neuropathy. Stable Continue current management. Excessive drinking alcohol 11/09/2015 1 Overview (11/09/2015): 6-8 beers daily Morbid obesity with BMI of 40.0-44.9, adult 11/01/2014 04/30/2018 Anal warts 08/17/2013 12/24/2022 CAD (coronary artery disease) 03/30/2013 02/16/2015 Overview (03/30/2013): He had a cardiac cath with angioplasty of RCA, 90% blockage. There was also a 70% blockage of another artery (Dr. Mcmahon) at [facility]. Type 2 diabetes mellitus without complication 12/19/19 12 02/06/2018 Bruising 02/06/2018 Encounters Date Type Department Care Team Description 07/14/2024 11:30 AM CDT Video Visit [facility] [place]iatry [place] [address] [facility] [place] [phone] Rashawn Olvera, Recurrent major depressive disorder, in full remission; Generalized anxiety disorder 07/14/2024 Abstract [facility] [address] [facility] [address] [place] [phone] Mirian Wallace MD 07/13/2024 External Device Data STL ABSTRACTION Provider, Abstract 07/13/2024 External Device Data STL ABSTRACTION Provider, Abstract 07/13/2024 Abstract [facility] Gastroenterology [facility] [address] [facility] [address] [place] [phone] Al Cooper MD 07/13/2024 Refill [facility] - [facility] [id number] [facility] [address] [place] [phone] Flo Donahue MD Benign hypertension 07/10/2024 Refill [facility] Psychiatry [facility] and [place] [address] [facility] [address] [facility] [place] [address] Rashawn Olvera DO Recurrent major depressive disorder, in full remission 07/08/2024 Telephone [facility] - [address] [place] [address] [facility] [address] [place] [phone] Nhan Ortiz DO PA for Rezdiffra 07/06/2024 1:10 PM CDT Office Visit [facility] - [address] [place] [address] [facility] [address] [place] [phone] Nhan Ortiz DO Elevated LFTs (Primary Dx); Obesity (BMI 35.0-39.9 without comorbidity); Moderate alcohol use disorder (CMS/HCC); Metabolic dysfunction-associa farshad steatotic liver disease (MASLD) 06/25/2024 Refill [facility] Primary Care - [facility] [address] [facility] [address] [place] [address] Mirian Wallace MD 06/23/2024 2:30 PM CDT Office Visit [facility] EP AT [facility] [address] [facility] [address] [place] [phone] Bill De Anda MD Other persistent atrial fibrillation (CMS/HCC) (Primary Dx); Typical atrial flutter (CMS/HCC); Benign hypertension 06/08/2024 External Device Data STL ABSTRACTION Provider, Abstract 06/07/2024 Refill [facility] - [place] [phone] Flo Donahue MD Mixed hyperlipidemia; Benign hypertension; Coronary artery disease involving kake coronary artery of kake heart without angina pectoris 05/28/2024 Abstract [facility] Primary Care - [address] [phone] Mirian Wallace MD 05/18/2024 Abstract [facility] Primary Care [address] [phone] Mirian Wallace MD 05/14/2024 10:30 AM PHYSICIAN CREDENTIALING SPECIALIST Office Visit [facility] Primary Care Same Day [address] [phone] Valerie Tapia FNP Liver fibrosis (Primary Dx); Generalized body aches; Other fatigue; Abnormal urine color 05/11/2024 External Device Data STL ABSTRACTION Provider, Abstract 05/11/2024 External Device Data STL ABSTRACTION Provider, Abstract 05/05/2024 Orders Only [facility] - [address] [phone] Mirian Wallace MD 05/05/[address] [phone] Mirian Wallace MD 04/28/2024 Chart Note [facility] - [address] [phone] Flo Donahue MD 04/23/2024 Orders Only [facility] Heart and Vascular At [place] [address] [facility] [address] [place] [phone] Renetta Tyler RN Paroxysmal atrial fibrillation (CMS/HCC); Coronary artery disease involving kake coronary artery of kake heart without angina pectoris from Last 3 Months Immunizations Immunization Administration Dates Next Due (ADACEL/BOOSTRIX)(10 YR UP) TDAP VACCINE, 0.5ML, IM 11/08/2017 (AREXVY)(60 YR UP) RSV, GURJIT MBINANT, PROTEIN SUBUNIT RSVPREF, ADJUVANT RECONSTITUTED, 0.5 ML, PF 01/24/2023 (PFIZER)(12 YR UP) COVID-19 VACCINE - EMERGENCY USE AUTHORIZATION, MRNA, [id number](PF) 30 MCG/0.3 ML IM SUSP 12/07/2020 (PREVNAR 13)(6 WKS UP) PNEUM OCOCCAL CONJUGATE (PCV13) 0.5 ML, IM 05/05/2015 (SPIKEVAX) (12 YRS UP PRIMAR Y SERIES) COVID-19 VACCINE - [id number](PF) 100 MCG/0.5 ML IM SUSP 05/30/2020,04/19/2020 INFLUENZA VACCINE HIGH DOSE QUADRIVALENT 65 YR UP PF IM 11/03/2019 Influenza Seasonal Unspecifi ed Formulation IM 11/08/2021,12/22/2017,01/18/2015,2013,12/08/2012,12/17/2011,01/01/2011 Influenza Vaccine High Dose 65+ Yrs IM 12/21/2018,01/06/2018,01/24/2017,2015 Influenza Vaccine Split 3+ Yrs PF IM 12/09/2019 Pneumococcal conjugate, unsp ecified formulation 01/01/2011 Zoster Vaccine Live SQ 03/30/2013 Family History Medical History Relation Name Comments Asthma Daughter Eryn Styles Heart Attack Father Tiara Heart Disease Father Tiara Hypertension Father Tiara Diabetes Sister 1 MJ,BS,LJ Heart Attack Sister 1 MJ,BS,LJ Heart Disease Sister 1 MJ,BS,LJ High Cholesterol Sister 1 MJ,BS,LJ Hypertension Sister 1 MJ,BS,LJ Stroke Sister 1 MJ,BS,LJ Asthma Sister 2 LaJeanne Juani Heart Attack Sister 2 LaJeanne Juani Heart Disease Sister 2 LaJeanne Juani Stroke Sister 2 LaJeanne Juani Alcohol abuse Sister 3 Maria R Zoie Anxiety Sister 3 Maria R Zoie Heart Attack Sister 3 Jayshree Velez Zoie Stroke Sister 3 Maria R Yonytulio Anxiety Sister 4 MJ Anxiety Sister 5 LaJ Colon Cancer Neg Hx Relation Name Status Comments Daughter Eryn Styles Alive Father Tiara Maternal Grandfather Maternal Grandmother Mother Paternal Grandfather Paternal Grandmother Sister 1 MJ,BS,LJ Sister 2 Martha Gloria Alive Sister 3 Jayshree Lino Alive Sister 4 KIRA Alive Sister 5 Srinivas Alive Social History Tobacco Use Types Packs/Day Years Used Date Smoking Tobacco: Former Cigarettes 2 20 1 04/28/1957 - 02/25/1978 Smokeless Tobacco: Never Tobacco Cessation:Counseling Given: Not Answered Alcohol Use Standard Drinks/Week Comments Yes 24 [...] on file Legal Sex Male 4:59 AM PHYSICIAN CREDENTIALING SPECIALIST Gender Identity Not on file Sexual Orientation Not on file Last Filed Vital Signs Vital Sign Reading Time Taken Comments Blood Pressure 155/79 07/06/2024 12:32 PM CDT Pulse 72 07/06/2024 12:32 PM CDT Temperature 36.3 C (97.4 F) 07/06/2024 12:32 PM CDT Respiratory Rate 18 05/14/2024 10:09 AM PHYSICIAN CREDENTIALING SPECIALIST Oxygen Saturation 90% 07/06/2024 12:32 PM CDT Inhaled Oxygen Concentration - - Weight 135.6 kg (299 lb) 07/06/2024 12:32 PM CDT Height 190.5 cm (6' 3 ) 07/06/2024 12:32 PM CDT Body Mass Index 37.37 07/06/2024 12:32 PM CDT Plan of Treatment Upcoming Encounters Date Type Department Care Team (Late st Contact Info) Description 08/11/2024 3:15 PM CDT Office Visit [facility] EP AT [facility] [address] [facility] [address] [place] [phone] Bill De Anda MD [address] [facility] [address] [place] [address] 08/18/2024 11:30 AM CDT Office Visit [facility] Primary Care - [facility] [address] [phone] [place] [address] [address] 09/15/2024 11:30 AM CDT Office Visit [facility] - [place] [address] [facility] [address] [place] [address] Flo Donahue MD [address] [facility] [address] [place] [address] 09/21/2024 11:00 AM CDT Office Visit [facility] [address] [facility] [address] [place] [address] Ashley Holloway, DARLENE [address] [facility] [address] [place] [address] 10/05/2024 1:15 PM CDT Office Visit [facility] - [address] [facility] [address] [address] [facility] [address] [place] [phone] Konrad Aburto, JAMI [address] [facility] [address] [place] [address] 11/26/2024 1:00 PM CDT Office Visit [facility] Pulmonology [facility] [address] [facility] [address] [place] [address] Silvio Avalos, [facility] [address] [place] [phone] 12/27/2024 1:30 PM CDT Office Visit [facility] EP AT [facility] [address] [facility] [address] [place] [address] Guerrero Lind MD [address] [facility] [address] [place] [address] 09/22/2025 11:00 AM CDT Office Visit [facility] [address] [facility] [address] [place] [address] Carmine Castano MD [address] [facility] [address] [place] [address] Health Maintenance Due Date Last Done Comments FIT/ DNA Q 3 YEARS (AUTO ORDER) 11/13/1967 FIT/FOBT Q 1 YEAR (AUTO ORDER) 11/13/1967 FIT-DNA Q 3 years 1994 FIT/FOBT Q 1 year 1994 Flex Sig/CT Colonography Q 5 years 1994 ZOSTER VACCINE (2 of 3) 05/25/2013 03/30/2013 PNEUMOCOCCAL VACCINE 50+ YEA RS (2 of 2 - PPSV23) 05/05/2016 05/05/2015, 05/05/2015, 01/01/2011 FLEX SIG/CT COLONOGRAPHY Q 5 YEARS (AUTO ORDER) 09/28/2017 09/28/2012, 09/28/2012 COVID-19 Vaccine (2023-2 5 season) 2023 12/07/2020, 05/30/2020, 04/19/2020 [place] Preventative Visit/Annual Wellness Visit 03/10/2024 08/15/2023, 01/15/2022, 12/19/2020, Additional history exists DTAP/TDAP/TD VACCINES (2 - T d or Tdap) 11/09/2027 11/08/2017 COLORECTAL CANCER SCREENING (AUTO ORDER) 03/31/2034 03/31/2024, 03/31/2024, 08/11/2017, Additional history exists COLORECTAL SCREENING 03/31/2034 03/31/2024, 03/31/2024, 08/11/2017, Additional history exists Colorectal Cancer Screening (AUTO ORDER) 03/31/2034 Colorectal Cancer Screening 03/31/2034 Abdominal Aortic Aneurysm (A AA) Screening Completed 12/11/2022 RSV VACCINE (60+ or ) Completed 01/24/2023 INFLUENZA VACCINE Completed 01/28/2024, , 12/09/2019, Additional history exists Medical Devices Implanted Type Area Respiratory Medicine Physician Device Identifier Shelf Expiration Date Model / Serial / Lot Vitoss Foam Pack Ba2x 5ml - [id number] Implanted:Qty : 1 on 04/12/2022 by Aman Justice MD at [facility] Biological N/A: Spine Cervical Anterior NEELAM[employer] [id number] 04/06/[id number] / / [id number] Tritanium C Anterior Cervical Cage 5 Mm X 12mm X 14mm X 6 Implanted:Qty : 1 on 04/12/2022 by Aamn Justice MD at [facility] Cage N/A: Spine Cervical Anterior [employer] [id number] 01/22/2027 [id number] / / [id number] Description:ID : [id number]. All Neelam cervical hardware was processed on requisition, [id number]. Tritanium Anterior Cervical Cage Implanted:Qty : 1 on 04/12/2022 by Aman Justice MD at [facility] Cage N/A: Spine Cervical Anterior [employer] SPINE 02/17/2023 [id number] / / [id number] Cement Bone Biomet R 1x40 [id number] - [id number] Implanted:Qty : 2 on 10/01/2021 by Ke Bhatt MD at [facility] Right: Knee [employer] 12/08/2023 [id number] / / [id number] Dev Cardiva Vascade Mvp Xl Vvcs 10-12fr 800-1012xl - [id number] Implanted:Qty : 1 on 03/08/2024 by Bill De Anda MD at [facility] Closure Device Right: Groin [employer] [id number] 12/03/2025 800-1012XL / / [id number] Dev Vns Vasc Clsr Vascade Mvp St 682-086x-76h - [id number] Implanted:Qty : 1 on 03/08/2024 by Bill De Anda MD at [facility] Closure Device Left: Groin [employer] [id number] 07/20/2025 800-612C-1 0U / / [id number] Dev Vns Vasc Clsr Vascade Mvp 147-130k-32k - [id number] Implanted:Qty : 1 on 03/08/2024 by Bill De Anda MD at [facility] Closure Device Left: Groin [employer] [id number] 07/20/2025 800-612C-1 0U / / [id number] [id number] Hemostatic Surgifoam Sz100 1973 - [id number] Implanted:Qty : 1 on 06/23/2020 by Aman Justice MD at [facility] Hemostatic Right: Spine Lumbar J[employer]J- [employer] 02/03/20241973 / / [id number] Hemostatic Surgifoam Sz100 1973 - [id number] Implanted:Qty : 1 on 04/12/2022 by Aman Justice MD at [facility] Hemostatic N/A: Spine Cervical Anterior J[employer]J- [employer] [id number] 12/03/2025 1974 / / [id number] Bearing Vanguard Ant Stab 10x75 [id number] - [id number] Implanted:Qty : 1 on 10/01/2021 by Ke Bhatt MD at [facility] Knee Right: Knee [employer] [id number] 06/28/2023 [id number] / / [id number] Description:CAP BORREGO Comp Fem Vanguard Cr Interlock Rt 75mm [id number] - [id number] Implanted:Qty : 1 on 10/01/2021 by Ke Bhatt MD at [facility] Knee Right: Knee [employer] [id number] 01/02/2031 [id number] / / [id number] Description:FRANDY BORREGO Patella 3peg Series A [id number] - [id number] Implanted:Qty : 1 on 10/01/2021 by eK Bhatt MD at [facility] Knee Right: Knee [employer] 04/05/2026 [id number] / / [id number] Description:CAP BORREGO Comp Tib Cocr Finned 75mm [id number] - [id number] Implanted:Qty : 1 on 10/01/2021 by Ke Bhatt MD at [facility] Knee Right: Knee [employer] 07/28/2031 [id number] / / [id number] Description:FRANDY BORREGO 40mm 2 Level Plate Implanted:Qty : 1 on 04/12/2022 by Aman Justice MD at [facility] Plate N/A: Spine Cervical Anterior [employer]- SPINE [id number] / STERILIZED FEB 3 23 / LOAD # 8 1 12mmx4.0 Self Tapping Variable Screws Implanted:Qty : 6 on 04/12/2022 by Aman Justice MD at [facility] Screw N/A: Spine Cervical Anterior [employer] SPINE [id number] / STERILIZED FEB 3 23 / LOAD #1 8 Stent Vasc Supera 6fr [id number]- P6-12/17/2016 Implanted:12/2016 by Flo Donahue MD (Quantity not on file) [facility] [id number] 01/07/2017 S-65-100-1 20-P6 / / [id number] Description:Prox politeal / right SFA Stent Vasc Supera 6fr [id number]- P6-12/17/2016 Implanted:12/2016 by Flo Donahue MD (Quantity not on file) [facility] [id number] 11/07/2017 S-65-100-1 20-P6 / / [id number] Description:right SFA Right Big Toe Titanium Procedures Procedure Name Priority Date/Time Associated Diagnosis Comments SD ECG ROUTINE ECG W/LEAST 12 LDS W/I&R Routine 06/23/2024 3:15 PM CDT Other persistent atrial fibrillation (CMS/HCC) POC URINALYSIS DIPSTICK AUTOMATED Routine 05/14/2024 10:42 AM PHYSICIAN CREDENTIALING SPECIALIST Abnormal urine color DIABETES EYE EXAM Routine 04/29/2024 9:00 AM PHYSICIAN CREDENTIALING SPECIALIST COLONOSCOPY REPORT 03/31/2024 11 :33 [address]IAN CREDENTIALING SPECIALIST [address] ABDOMEN PELVIS WO CONTRAST Stat 12/11/2022 11:48 AM CDT Chronic diarrhea Loose bowel movement from Last 3 Months or Most Recently Relevant to Health Maintenance Results * SD ECG ROUTINE ECG W/LEAST 12 LDS W/I&R (06/23/2024 3:15 PM CDT) Narrative [facility] - 06/23/2024 3:15 PM CDT Bill De Anda MD 06/23/2024 3:16 PM Sinus rhythm with first-degree AV block at 68 bpm. SD duration 265 ms. Procedure Note Bill De Anda MD - 06/23/2024 3:15 PM CDT Sinus rhythm with first-degree AV block at 68 bpm. SD duration 265 ms. us Bill De Anda MD ECG ORDERABLES Final Result [facility] CLIA #[id number] [address] [facility], [facility] [address] [place] [address] * POC URINALYSIS DIPSTICK AUTOMATED (05/14/2024 10:42 AM PHYSICIAN CREDENTIALING SPECIALIST) COLOR UA POC Yellow Pale to Dark Yellow [facility] CLARITY UA POC Clear Clear, Other [facility] GLUCOSE UA POC Negative Negative, Normal [facility] BILIRUBIN UA POC Negative Negative [facility] KETONES UA POC Negative Negative [facility] SPECIFIC GRAVITY UA POC 1.015 1.000 - 1.030 [facility] BLOOD UA POC Negative Negative [facility] PH UA POC 7.0 5.0 - 8.0 [facility] PROTEIN UA POC Negative Negative [facility] UROBILINOGEN UA POC 0.2 <2.0 mg/dL [facility] NITRITE UA POC Negative Negative [facility] LEUKOCYTE ESTERASE UA POC Negative Negative [facility] KIT LOT NUMBER POC 402,[phone] [facility] KIT EXP DATE POC 10/07/2024 [facility] Urine 05/14/2024 10:4 2 AM PHYSICIAN CREDENTIALING SPECIALIST us Valerie Tapia STOCK WORKER POINT OF CARE TESTING Final Re sult Performing Organization Address [facility]/ZIP Co de Phone Number [facility] CLIA# [id number] [place] [address] * HM DIABETES EYE EXAM (04/29/2024 9:00 AM PHYSICIAN CREDENTIALING SPECIALIST) us Mirian Wallace MD HEALTH MAINTENANCE Final Result Performing Organization Address [facility]/ZIP Co de Phone Number [facility] CLIA# [id number] [place] [address] * COLONOSCOPY REPORT (03/31/2024 11:33 AM PHYSICIAN CREDENTIALING SPECIALIST) Narrative Procedure Note Nhan Ortiz, DO - 03/31/2024 11:33 AM CST [facility] Patient Name: Romario Bonds Procedure Date: 03/31/2024 Date of : 1950 Attending MD: Nhan Ortiz DO, Procedure: Colonoscopy Indications: Epigastric abdominal pain, Clinically significant diarrhea of unexplained origin Providers: Nhan Ortiz DO Referring MD: Mirian Wallace MD Medicines: Monitored Anesthesia Care Complications: No immediate complications. Procedure: Informed consent was obtained for the procedure, including moderate sedation after risks were discussed. Based on the pre-procedure assessment, including review of the patient's medical history, medications, allergies, and review of systems, the patient was deemed to be an appropriate candidate for sedation. A timeout was performed. Continuous ECG monitoring, pulse oximetry, blood pressure monitoring, and direct observation were performed. The Colonoscope was introduced through the anus and advanced to the cecum, identified by appendiceal orifice and ileocecal valve. The colonoscopy was performed without difficulty. The patient tolerated the procedure well. The quality of the bowel preparation was good. The ileocecal valve, appendiceal orifice, and rectum were photographed. Findings: The perianal and digital rectal examinations were normal. A 2 mm polyp was found in the cecum. The polyp was sessile. The polyp was removed with a cold snare. Resection and retrieval were complete. Two sessile polyps were found in the transverse colon. The polyps were 3 to 5 mm in size. These polyps were removed with a cold snare. Resection and retrieval were complete. Many large-mouthed and medium-mouthed diverticula were found in the sigmoid colon, descending colon, transverse colon, ascending colon and cecum. Biopsies for histology were taken with a cold forceps from the entire colon for evaluation of microscopic colitis. Non-bleeding external and internal hemorrhoids were found during retroflexion. The hemorrhoids were small. Impression: - One 2 mm polyp in the cecum, removed with a cold snare. Resected and retrieved. - Two 3 to 5 mm polyps in the transverse colon, removed with a cold snare. Resected and retrieved. - Diverticulosis in the sigmoid colon, in the descending colon, in the transverse colon, in the ascending colon and in the cecum. - Non-bleeding external and internal hemorrhoids. - Biopsies were taken with a cold forceps from the entire colon for evaluation of microscopic colitis. Recommendation: - Patient has a contact number available for emergencies. The signs and symptoms of potential delayed complications were discussed with the patient. Return to normal activities tomorrow. Written discharge instructions were provided to the patient. - Resume previous diet. - Continue present medications. - Encourage hi fiber diet - Await pathology results. Procedure Code(s): --- Professional --- 38139, Colonoscopy, flexible; with removal of tumor(s), polyp(s), or other lesion(s) by snare technique 38357, 59, Colonoscopy, flexible; with biopsy, single or multiple CPT copyright 2020 [employer]. All rights reserved. The codes documented in this report are preliminary and upon driver education road instructor review may be revised to meet current compliance requirements. Nhan Ortiz DO 03/31/2024 11:30:42 AM This report has been signed electronically. Number of Addenda: [id number] [place] [address] Nhan Ortiz DO GI PROCEDURE ORDERABLES Final Re sult * CT ABDOMEN PELVIS WO CONTRAST (12/11/2022 11:48 AM CDT) Anatomical Region Laterality Modality Abdomen Computed Tomogra phy 12/11/2022 11:5 0 AM CDT Impressions 12/11/2022 12:02 PM CDT IMPRESSION: 1. Epiploic appendagitis of the left colon. 2. Prostatic enlargement with prominent urinary bladder distention. 3. Cholelithiasis. DICTATION LOCATION: Location [address] [place] [address] 12/11/2022 12:02 PM CDT EXAMINATION: CT ABDOMEN PELVIS WO CONTRAST DATE: 12/11/2022 11:48 AM HISTORY: Diarrhea, Chronic Diarrhea; TECHNIQUE: CT of the abdomen and pelvis was performed without contrast according to standard protocol. The examination was performed with the adjustment of mA according to the patient size and/or the use of Iterative Reconstruction Technique. COMPARISON: CT abdomen pelvis dated 06/23/2015 FINDINGS: Lower chest: No acute findings. Hepatobiliary: The liver has a grossly unremarkable noncontrast appearance. There is cholelithiasis. There is no biliary dilatation. Pancreas and Spleen: Grossly unremarkable noncontrast appearance. Kidneys, Adrenals, and Ureters: Normal. No stone or hydronephrosis. Retroperitoneum: Normal. No bulky adenopathy. Vasculature: Patchy atherosclerotic changes, otherwise unremarkable. Bowel and mesentery: There is epiploic appendagitis of the left colon. There is colonic diverticulosis. There is no free air or free fluid. Pelvic structures: There is prostatic enlargement and prominent urinary bladder distention. Musculoskeletal: Degenerative changes are present in the spine. 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 Checo Carey NP CT ORDERABLES Edited Result - Final from Last 3 Months or Most Recently Relevant to Health Maintenance Insurance RX [employer] RX Member Subscriber Plan / Payer (Ef fective 2024-Present) Name:Cammie Romario ESTELLE Relation to Subscriber:Self Name:CammieRomario Payer ID:Not on file Group ID:[id number] Type:RX Medicare Part D Address: [place] [facility] [address] Advance Directives For more information, please contact: [phone] Documents on File Type Date Recorded Patient Manager Epic Expl anation Advance Directive POA 12/19/2016 2:35 PM Advance Directive POA Advance Directive Living Will 12/19/2016 2:34 PM Advance Directive Living Will * Full Code (Latest Code Status on File) Date Activated Date Inactivated Comments 03/08/2024 11:15 AM 03/08/2024 4:40 PM * Full Code Date Activated Date Inactivated Comments 04/12/2022 3:17 PM 04/13/2022 4:40 PM * Full Code Date Activated Date Inactivated Comments 04/12/2022 8:42 AM 04/12/2022 3:17 PM * Full Code Date Activated Date Inactivated Comments 10/01/2021 5:07 PM 10/02/2021 5:27 PM * Full Code Date Activated Date Inactivated Comments 10/01/2021 11:01 AM 10/01/2021 5:07 PM Care Teams Tinner Helper Relationship Specialty [place] [address] [address] PCP - General 05/07/12
--- OUTSIDE RECORDS SUMMARY | 2024-07-15 17:47 | XMS_ITS | Encounter Summary ---
Author Organization [facility] Address [address] [place] [address] Care Team Providers Care Stitching Machine Operator Name Role Phone Mirian Wallace MD Primary Care Provider [phone] Encounter Details Date Type Department Care Team (Late st Contact Info) Description 03/24/1998 Outpatient Historical [facility] Zane Renee MD [facility] [place] [id number] [place], Authorized P NO ADDRESS ON FILE Sprain of lumbar region (Primary Dx) Social History Tobacco Use Types Packs/Day Years Used Date Smoking Tobacco: Never Assessed Sex and Gender Information Value Date Recorded Sex Assigned at Not on file Legal Sex Male 4:59 AM REMELTER Gender Identity Not on file Sexual Orientation Not on file documented as of this encounter Plan of Treatment Upcoming Encounters Date Type Department Care Team (Late Contact Info) Description 08/11/2024 3:15 PM CDT Office Visit [facility] EP AT [place] [address] [facility] [address] [place] [address] Bill De Anda MD [facility] [address] [facility] [address] [place] [address] 08/18/2024 11:30 AM CDT Office Visit [facility] Primary Care - [address] [place] [address] [place] [address] [facility] [address] [place] [phone] 09/15/2024 11:30 AM CDT Office Visit [facility] - [place] [address] [facility] [address] [place] [phone] Flo Donahue MD [address] [facility] [address] [place] [address] 09/21/2024 11:00 AM CDT Office Visit [facility] Neurology [facility] [address] [facility] [address] [place] [address] Ashley Holloway, [facility] [address] [facility] [address] [place] [address] 10/05/2024 1:15 PM CDT Office Visit [facility] GASTROENTEROLOGY - [address] [facility] [address] [address] [facility] [address] [place] [address] Konrad Aburto, [facility] [address] [facility] [address] [place] [phone] 11/26/2024 1:00 PM CDT Office Visit [facility] Pulmonology [facility] [address] [facility] [address] [place] [address] Silvio Avalos, [facility] [address] [facility] [place] [address] 12/27/2024 1:30 PM CDT Office Visit [facility] EP AT [facility] [address] [facility] [address] [place] [address] Guerrero Lind MD [address] [facility] [address] [place] [address] 09/22/2025 11:00 AM CDT Office Visit [facility] Neurology [address] [facility] [address] [place] [address] Carmine Castano MD [address] [facility] [address] [place] [address] documented as of this encounter Visit Diagnoses Diagnosis Sprain of lumbar region- Primary documented in this encounter Additional Health Concerns Infection Onset Date Last Indicated Resolved Time C Diff Comment:10/26/15 08/08/2017-outside 60 days from last positive culture obtianed.resolved. 10/27/2015 10/27/201503/2017 3:50 PM CDT R/O COVID-19 12/10/2019 12/10/2019 12/13/2019 1:16 AM CDT COVID-19 12/11/2019 12/11/2019 01/10/2020 1:16 AM REMELTER R/O C. diff 08/04/2021 08/03/2021 08/04/2021 2:45 PM CDT R/O Respiratory 05/13/2022 05/13/2022 05/14/2022 1 2:32 AM REMELTER R/O GI Pathogen 05/13/2022 05/13/2022 05/14/2022 1 2:32 AM REMELTER R/O C. diff 12/09/2022 12/09/2022 12/10/2022 1:06 PM CDT R/O C. diff 01/23/2024 01/22/2024 01/23/2024 5:28 PM REMELTER documented as of this encounter Care Teams Stitching Machine Operator Relationship Specialty [place] [address] [facility] [address] [place] [address] PCP - General 05/07/12 documented as of this encounter
--- OUTSIDE RECORDS SUMMARY | 2024-07-15 17:47 | XMS_ITS ---
Author Organization [facility] Address [address] [place] [address] Kirstie Fuller [place] [address] Care Team Providers Care Fig Bar Machine Operator Name Role Phone Critsina DEAN KELLY Primary Care Provider Shukri Smith Unavailable [phone] ALLERGIES Allergen (clinical drug ingredient) Drug/Non Drug Allergy documented on EMR Reaction Allergy Type Onset Date Status citalopram Celexa hives Drug Allergy Active hydralazine HydrALAZINE HCl hives Drug Allergy Active Penicillin hives Drug Allergy Active REASON FOR VISIT Follow Up, Right > Left Low Back Pain MEDICATIONS Medication SIG (Take, Route, Frequency, Duration) Notes Start Date End Date Status Repatha SureClick 140 MG/ML Subcutaneous for 28 Active Tamsulosin HCl 0.4 MG Oral for 90 N401,Unava ilab le Active Tadalafil 5 MG TAKE 1 TABLET BY ROBIN TH ONCE DAILY NEEDED FOR ERECTILE DYSFUNCTION Oral for 30 Active Diclofenac Sodium 1 % as directed Drier Feeder ally Four times a day for 30 days 12/10/2022 Active Carvedilol 12.5 MG TAKE 1 TABLET BY RBOIN TH TWICE DAILY WITH MEALS Orally Active buPROPion HCl ER (XL) 300 MG Oral for 90 Active busPIRone HCl 10 MG 1 tablet Oral Twice a day Active Lisinopril 40 MG 1 tablet Orally Once a day Active lamoTRIgine 100 MG Oral for 90 Active Mobic 15 MG 1 tablet Orally Once a day Active Furosemide 20 MG 1 tablet Orally Once a day for 30 day(s) Active Pregabalin 75 MG 1 capsule Orally Twi ce a day Active Atorvastatin Calcium 20 MG 1 tablet Orally Once a day for 30 day(s) Active Felodipine ER 10 MG 1 tablet Orally Once a day for 30 day(s) Active Omeprazole 40 MG 1 capsule 30 minutes before morning meal Orally Once a day for 30 day(s) Active Xarelto 20 MG 1 tablet Orally Once a day Active Potassium Chloride 20 MEQ 1 packet with food Orally Once a day for 30 day(s) Active clonazePAM 1 MG 1 tablet Orally Once a day Active Centrum Men - as directed Orally Active SOCIAL HISTORY Tobacco Use: Social History Observation Description Date Details (start date - stop date) Former Smoker NA - NA Sex Assigned At : Social History Observation Description Sex Assigned At Unknown Tobacco Use/Smoking Question Answer Notes Are you a former smoker How long has it been since you last smoked? > 10 years VITAL SIGNS Blood pressure systolic 174 mm Hg 11/17/19 24 Blood pressure diastolic 88 mm Hg 024 Heart Rate 70 /min 11/17/2023 Respiratory Rate 16 /min 11/17/2023 Height 6 ft 3 in in 11/17/2023 Weight 320 lbs 11/17/2023 BMI 39.99 kg/m2 11/17/2023 Encounters Encounter Location Date Provider Diagnosis [facility] [address] [place] [address] 11/17/2023 Shukri Shannon Spondylosis without myelopathy or radiculopathy, lumbar region M47.816 ; Unilateral primary osteoarthritis of first carpometacarpal joint, left hand M18.12 ; Spondylosis without myelopathy or radiculopathy, cervical region M47.812 ; Postlaminectomy syndrome, not elsewhere classified M96.1 ; Radiculopathy, lumbar region M54.16 ; Radiculopathy, lumbosacral region M54.17 ; Unilateral primary osteoarthritis, right knee M17.11 ; Radiculopathy, cervical region M54.12 ; Spondylosis without myelopathy or radiculopathy, cervicothoracic region M47.813 ; Radiculopathy, cervicothoracic region M54.13 ; Spinal stenosis, cervical region M48.02 ; Other intervertebral disc degeneration, lumbar region M51.36 ; senior living (current) use of anticoagulants Z79.01 and Chronic pain syndrome G89.4 ASSESSMENTS Encounter Date Diagnosis Assessment Notes Treatment Notes Treatment Clinical Notes 11/17/2023 Spondylosis without myelopathy or radiculopathy, lumbar region (ICD-10 - M47.816) Patient recently underwent bilateral L3-5 RFA done on 10/15/23 and reports an ongoing 90% reduction of his axial low back pain since this procedure. He currently denies a need for any injections or interventions at this time. He would like to return to the office in 1 month for follow-up and reevaluation of his pain at that time. 11/17/2023 Unilateral primary osteoarthritis of first carpometacarpal joint, left hand (ICD-10 - M18.12) 11/17/2023 Spondylosis without myelopathy or radiculopathy, cervical region (ICD-10 - M47.812) 11/17/2023 Postlaminectomy syndrome, not elsewhere classified (ICD-10 - M96.1) 11/17/2023 Radiculopathy, lumba r region (ICD-10 - M54.16) 11/17/2023 Radiculopathy, lumbosacral region (ICD-10 - M54.17) 11/17/2023 Unilateral primary osteoarthritis, right knee (ICD-10 - M17.11) 11/17/2023 Radiculopathy, cervical region (ICD-10 - M54.12) 11/17/2023 Spondylosis without myelopathy or radiculopathy, cervicothoracic region (ICD-10 - M47.813) 11/17/2023 Radiculopathy, cervicothoracic region (ICD-10 - M54.13) 11/17/2023 Spinal stenosis, cervical region (ICD-10 - M48.02) 11/17/2023 Other intervertebral disc degeneration, lumbar region (ICD-10 - M51.36) 11/17/2023 senior living (current) use of anticoagulants (ICD-10 - Z79.01) 11/17/2023 Chronic pain syndrom e (ICD-10 - G89.4) 11/17/2023 Other The above-named patient was evaluated in conjunction with Dr. Shannon. I have discussed and reviewed all of the pertinent history, physical examination findings and diagnostic imaging results with him. As a result of our discussion, Dr. Shannon has determined the above assessment and directed the treatment plan. This note was dictated using voice recognition software and therefore inadvertent errors may have occurred. This note was dictated by ROSALINDA Orona PLAN OF TREATMENT Treatment Notes Assessment Notes Spondylosis without myelopat hy or radiculopathy, lumbar region Patient recently underwent bilateral L3- 5 RFA done on 10/15/23 and reports an ongoing 90% reduction of his axial low back pain since this procedure. He currently denies a need for any injections or interventions at this time. He would like to return to the office in 1 month for follow-up and reevaluation of his pain at that time. Other The above-named saud ent was evaluated in conjunction with Dr. Shannon. I have discussed and reviewed all of the pertinent history, physical examination findings and diagnostic imaging results with him. As a result of our discussion, Dr. Shannon has determined the above assessment and directed the treatment plan. This note was dictated using voice recognition software and therefore inadvertent errors may have occurred. This note was dictated by ROSALINDA Orona Next Appt Details Follow Up: 4 Weeks OPV, Reas on: Progress Notes * Examination Category Sub-Category Detail Notes Physical Examination: Generally: Patient is alert and oriented x3, in moderate distress secondary to pain HEENT: Normocephalic, atrau matic, pupils are equally round and reactive to light. The oropharynx is clear Neck: There is limited ran ge of motion of the cervical spine to 60 degrees with extension and lateral rotation bilaterally. There is tenderness to palpation over the bilateral C3-4 through C7-T1 facet joints. Extension and lateral rotation of the cervical spine reproduces the patients typical axial neck pain. The axial loading test is positive. Spurling sign is positive bilaterally. There is diffuse tenderness to palpation over the bilateral cervical paraspinal muscles and significant muscle spasm throughout. There are palpable myofascial trigger points within the body of the trapezius muscles bilaterally Heart: Regular rate and rhy thm Chest: Clear to auscultatio n Musculoskeletal and Extremities: There is tenderness over the left lumbar paraspinous muscles in the L2-3 through L5-S1 facet joints bilaterally. Extension and lateral rotation of the lumbar spine reproduces much of the patient's axial low back pain. Generalized tenderness to palpation about bilateral groin, and right knee. Yusuf's and Gaenslen's test are positive bilaterally. There is tenderness to palpation over the left shoulder and left shoulder impingement upon 90 degrees of abduction. There is tenderness to palpation over the bilateral greater trochanters, external rotation is limited to 100 degrees. Severe tenderness to palpation over the right knee. Some crepitus is appreciated up on passive range of motion. The patient's typical right knee pain is reproducible by the right knee range of motion. Injection sites are clean, dry and intact. Both spinal cord stimulator leads were removed without resistance and were completely intact. Neosporin ointment and Band-Aids were applied at the injection sites Neuro Exam: Shows positive strai ght leg raising on the right. There is 4/5 strength at the left extensor hallucis longus. Deep tendon reflexes are 1+ out of 4 at the patellae bilaterally and symmetric and 0 out of 4 at the Achilles bilaterally and symmetric. Spurling sign is positive bilaterally Abdomen: Soft and benign History and Physical Notes * HPI (History of Present Illness) Category Sub-Category Detail Notes Pain Management Assessment and Follow-up: Follow-up Pl an documented:: Yes [facility] Quality 2020: MIPS Documented:: Compliant
--- OUTSIDE RECORDS SUMMARY | 2024-07-15 17:47 | XMS_ITS | Patient Health Record ---
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 Name Role Phone Cristina DEAN KELLY Primary Care Provider Shukri Smith Unavailable [phone] ALLERGIES Allergen (clinical drug ingredient) Drug/Non Drug Allergy documented on EMR Reaction Allergy Type Onset Date Status citalopram Celexa hives Drug Allergy Active hydralazine HydrALAZINE HCl hives Drug Allergy Active Penicillin hives Drug Allergy Active REASON FOR REFERRAL No Information MEDICATIONS Medication SIG (Take, Route, Frequency, Duration) Notes Start Date End Date Status Xarelto 20 MG 1 tablet Orally Once a day Active Potassium Chloride 20 MEQ 1 packet with food Orally Once a day for 30 day(s) Active buPROPion HCl ER (XL) 300 MG Oral for 90 Active clonazePAM 1 MG 1 tablet Orally Once a day Active busPIRone HCl 10 MG 1 tablet Oral Twice a day Active Lisinopril 40 MG 1 tablet Orally Once a day Active Centrum Men - as directed Orally Active lamoTRIgine 100 MG Oral for 90 Active Furosemide 20 MG 1 tablet Orally Once a day for 30 day(s) Active Mobic 15 MG 1 tablet Orally Once a day Active Pregabalin 75 MG 1 capsule Orally Twi ce a day Active Repatha SureClick 140 MG/ML Subcutaneous for 28 Active Atorvastatin Calcium 20 MG 1 tablet Orally Once a day for 30 day(s) Active Tamsulosin HCl 0.4 MG Oral for 90 N401,Unava ilab le Active Felodipine ER 10 MG 1 tablet Orally Once a day for 30 day(s) Active Tadalafil 5 MG TAKE 1 TABLET BY ROBIN ONCE DAILY NEEDED FOR ERECTILE DYSFUNCTION Oral for 30 Active Omeprazole 40 MG 1 capsule 30 minutes before morning meal Orally Once a day for 30 day(s) Active Diclofenac Sodium 1 % as directed Stem Roller ally Four times a day for 30 days 12/10/2022 Active Carvedilol 12.5 MG TAKE 1 TABLET BY TWICE DAILY WITH MEALS Orally Active SOCIAL HISTORY Tobacco Use: Social History Observation Description Date Details (start date - stop date) Former Smoker NA - NA Sex Assigned At : Social History Observation Description Sex Assigned At Unknown Tobacco Use/Smoking Question Answer Notes Are you a former smoker How long has it been since you last smoked? > 10 years Alcohol Screen (Audit-C) Question Answer Notes Did you have a drink containing alcohol in the p ast year? No Points 0 Interpretation Negative PROBLEMS Problem Type ICD Code Onset Dates Problem Status W/U Status Risk SNOMED Code Notes Problem Morbid (severe) obesity due to excess calories (E66.01) Active confirmed Morbid obesity (disorder) (881259134) Problem Fear of injections and transfusions (F40.231) Active confirmed Fear of medical treatment (027973303) Problem Chronic pain syndrome (G89.4) Active confirmed Chronic vitaliy n syndrome (011873093) Problem Osteoarthritis of hip, unspecified (M16.9) Active confirmed Osteoarthritis of hip (022655320) Problem Bilateral primary osteoarthritis of knee (M17.0) Active confirmed Osteoarthritis of knee (293385547) Problem Unilateral primary osteoarthritis, right knee (M17.11) Active confirmed Primary osteoarthritis (109532000) Problem Unilateral primary osteoarthritis of first carpometacarpal joint, left hand (M18.12) Active confirmed Localized, primary osteoarthritis of the hand (938112230) Problem Primary osteoarthritis, left shoulder (M19.012) Active confirmed Localized, primary osteoarthritis of the shoulder region (017290213) Problem Primary osteoarthritis, 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) Active confirmed Localized, primary osteoarthritis of the wrist (782960988) Problem Unspecified osteoarthritis, unspecified site (M19.90) Active confirmed Osteoarthritis (896802509) Problem Pain in left shoulder (M25.512) Active confirmed Shoulder joint pain (141901123) Problem Pain in unspecified shoulder (M25.519) Active confirmed Shoulder joint pain (517885247) Problem Pain in unspecified wrist (M25.539) Active confirmed Pain in wrist (41786179) Problem Pain in unspecified hip (M25.559) Active confirmed Arthralgia of t he pelvic region and thigh (227184913) Problem Pain in right knee (M25.561) Active confirmed Pain of right knee region (finding) (170964726515200) Problem Sacroiliitis, not elsewhere classified (M46.1) Active confirmed Solitary sacroiliitis (139143373) Problem Spondylosis without myelopathy or radiculopathy, cervical region (M47.812) Active confirmed Cervical spondylosis without myelopathy (774386979) Problem Spondylosis without myelopathy or radiculopathy, cervicothoracic region (M47.813) Active confirmed Cervical spondylosis without myelopathy (270062960) Problem Spondylosis without myelopathy or radiculopathy, lumbar region (M47.816) Active confirmed Lumbosacral spondylosis without myelopathy (68793294) Problem Spondylosis without myelopathy or radiculopathy, lumbosacral region (M47.817) Active confirmed Lumbosacral spondylosis without myelopathy (disorder) (50033678) Problem Spinal stenosis, cervical region (M48.02) Active confirmed Spinal stenosis in cervical region (68716419) Problem Intervertebral disc disorders with radiculopathy, lumbar region (M51.16) Active confirmed Radiculopathy d ue to lumbar intervertebral disc disorder (657954839010149) Problem Other intervertebral disc degeneration, lumbar region (M51.36) Active confirmed Degeneration of lumbar intervertebral disc (72740179) Problem Other intervertebral disc degeneration, lumbosacral region (M51.37) Active confirmed Degeneration of lumbosacral intervertebral disc (02773404) Problem Radiculopathy, cervical region (M54.12) Active confirmed Cervical radiculopathy (01674335) Problem Radiculopathy, cervicothoracic region (M54.13) Active confirmed Cervical radiculopathy (40515584) Problem Radiculopathy, lumbar region (M54.16) Active confirmed Lumbar radiculopathy (343551398) Problem Radiculopathy, lumbosacral region (M54.17) Active confirmed Lumbosacral radiculopathy (5711082) Problem Trochanteric bursitis, unspecified hip (M70.60) Active confirmed Enthesopathy of hip region (14682679) Problem Postlaminectomy syndrome, not elsewhere classified (M96.1) Active confirmed Post-lami nectomy syndrome (78490947) Problem Osseous stenosis of neural canal of lumbar region (M99.33) Active confirmed Spinal stenosis of lumbar region (24809595) Problem Intervertebral disc stenosis of neural canal of lumbar region (M99.53) Active confirmed Spinal stenosis of lumbar region (56027277) Problem correction (current) use of anticoagulants (Z79.01) Active confirmed Long-term curre nt use of anticoagulant (942455354) Problem Spinal stenosis, lumbar region with neurogenic claudication (M48.062) Active confirmed Neurogenic claudication (162480399) Problem Myalgia, other site (M79.18) Active confirmed Muscle pain (82638400) VITAL SIGNS Heart Rate 70 /min 11/17/2023 Respiratory Rate 16 /min 11/17/2023 Oximetry 98 % 10/15/2023 Post procedure vitals BP 173/92 HR 80 R 18 SpO2 99%. Pt discharged to home ambulatory with steady gait, no sign of acute distress. 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 and Chronic pain syndrome G89.4 [facility] [address] [place] [phone] 08/29/2023 Shukri Stynowick Spondylosis without myelopathy or radiculopathy, lumbar region M47.816 and Spondylosis without myelopathy or radiculopathy, lumbosacral region M47.817 [facility] [address] [place] [phone] 09/16/2023 Shukri Stynowick Spondylosis without myelopathy or radiculopathy, lumbar region M47.816 and Spondylosis without myelopathy or radiculopathy, lumbosacral region M47.817 [facility] [address] [place] [address] 09/30/2023 Shukri Stynowick Spondylosis without myelopathy or radiculopathy, lumbar region [...] intervertebral disc degeneration, lumbar region M51.36 ; correction (current) use of anticoagulants Z79.01 and Chronic pain syndrome G89.4 [facility] [address] [place] [phone] 10/15/2023 Shukri Stynowick Spondylosis without myelopathy or radiculopathy, lumbar region M47.816 and Spondylosis without myelopathy or radiculopathy, lumbosacral region M47.817 [facility] [address] [place] [address] [place] [address] 10/16/2023 Shukri Shannon [facility] [address] [facility] [place] [address] 2023 Shukri Shannon [facility] [address] [place] [address] [place] [address] 11/17/2023 Shukri Shannon Spondylosis without myelopathy or [...] intervertebral disc degeneration, lumbar region M51.36 ; correction (current) use of anticoagulants Z79.01 and Chronic pain syndrome G89.4 [facility] [address] [place] [phone] 12/17/2023 Shukri Shannon ASSESSMENTS Encounter Date Diagnosis Assessment Notes Treatment Notes Treatment Clinical Notes 09/16/2023 Spondylosis without myelopathy or radiculopathy, lumbar region (ICD-10 - M47.816) 09/16/2023 Spondylosis without myelopathy or radiculopathy, lumbosacral region (ICD-10 - M47.817) 11/17/2023 Unilateral primary osteoarthritis of first carpometacarpal joint, left hand (ICD-10 - M18.12) 11/17/2023 Spondylosis without myelopathy or radiculopathy, lumbar [...] reevaluation of his pain at that time. 10/15/2023 Spondylosis without myelopathy or radiculopathy, lumbar region (ICD-10 - M47.816) 10/15/2023 Spondylosis without myelopathy or radiculopathy, lumbosacral region (ICD-10 - M47.817) 09/30/2023 Unilateral primary osteoarthritis of first carpometacarpal joint, left hand (ICD-10 - M18.12) 09/30/2023 Spondylosis without myelopathy or radiculopathy, lumbar region (ICD-10 - M47.816) Schedule a bilateral L3-5 radiofrequency ablation for a more durable treatment of the patient's facet-generated low back pain originating from the L4-5 and L5-S1 facet joints. The risks of this procedure including pain, bleeding, infection, nerve damage, spinal cord injury, paralysis, total spinal anesthesia resulting in cardiopulmonary arrest/, respiratory distress requiring intubation, neuritis after radiofrequency ablation, hyperglycemia, insomnia, hair loss, muscle atrophy, skin depigmentation, weight gain, fluid retention, adrenal suppression, osteoporosis resulting in fractures, avascular necrosis of the hip, cataracts, bleeding gastric ulcer, worsening pain and failure to relieve pain were discussed and the patient is agreeable to proceeding at this time. 08/29/2023 Spondylosis without myelopathy or radiculopathy, lumbar region (ICD-10 - M47.816) 08/29/2023 Spondylosis without myelopathy or radiculopathy, lumbosacral region (ICD-10 - M47.817) 08/20/2023 Unilateral primary osteoarthritis of first carpometacarpal joint, left hand (ICD-10 - M18.12) 08/20/2023 Spondylosis without myelopathy or radiculopathy, lumbar region (ICD-10 - M47.816) schedule a bilateral L3-5 medial branch nerve block as a diagnostic and potentially therapeutic endeavor to isolate the source of the patient's facet-generated low back pain originating from the L4-5 and L5-S1 facet joints and to ultimately perform radiofrequency ablation for more durable pain relief. The risks of this procedure including pain, bleeding, infection, nerve damage, spinal cord injury, paralysis, total spinal anesthesia resulting in cardiopulmonary arrest/, respiratory distress requiring intubation, neuritis after radiofrequency ablation, hyperglycemia, insomnia, hair loss, muscle atrophy, skin depigmentation, weight gain, fluid retention, adrenal suppression, osteoporosis resulting in fractures, avascular necrosis of the hip, cataracts, bleeding gastric ulcer, worsening pain and failure to relieve pain were discussed and the patient is agreeable to proceeding at this time. 08/20/2023 Spondylosis without myelopathy or radiculopathy, cervical region (ICD-10 - M47.812) 09/30/2023 Spondylosis without myelopathy or radiculopathy, cervical region (ICD-10 - M47.812) 11/17/2023 Spondylosis without myelopathy or radiculopathy, cervical region (ICD-10 - M47.812) 11/17/2023 Postlaminectomy syndrome, not elsewhere classified (ICD-10 - M96.1) 09/30/2023 Postlaminectomy syndrome, not elsewhere classified (ICD-10 - M96.1) 08/20/2023 Postlaminectomy syndrome, not elsewhere classified (ICD-10 - M96.1) 08/20/2023 Radiculopathy, lumba r region (ICD-10 - M54.16) 09/30/2023 Radiculopathy, lumba r region (ICD-10 - M54.16) 11/17/2023 Radiculopathy, lumba r region (ICD-10 - M54.16) 11/17/2023 Radiculopathy, lumbosacral region (ICD-10 - M54.17) 09/30/2023 Radiculopathy, lumbosacral region (ICD-10 - M54.17) 08/20/2023 Radiculopathy, lumbosacral region (ICD-10 - M54.17) 09/30/2023 Unilateral primary osteoarthritis, right knee (ICD-10 - M17.11) 08/20/2023 Unilateral primary osteoarthritis, right knee (ICD-10 - M17.11) 11/17/2023 Unilateral primary osteoarthritis, right knee (ICD-10 - M17.11) 11/17/2023 Radiculopathy, cervical region (ICD-10 - M54.12) 09/30/2023 Radiculopathy, cervical region (ICD-10 - M54.12) 08/20/2023 Radiculopathy, cervical region (ICD-10 - M54.12) 09/30/2023 Spondylosis without myelopathy or radiculopathy, cervicothoracic region (ICD-10 - M47.813) 08/20/2023 Spondylosis without myelopathy or radiculopathy, cervicothoracic region (ICD-10 - M47.813) 11/17/2023 Spondylosis without myelopathy or radiculopathy, cervicothoracic region (ICD-10 - M47.813) 11/17/2023 Radiculopathy, cervicothoracic region (ICD-10 - M54.13) 09/30/2023 Radiculopathy, cervicothoracic region (ICD-10 - M54.13) 08/20/2023 Radiculopathy, cervicothoracic region (ICD-10 - M54.13) 08/20/2023 Spinal stenosis, cervical region (ICD-10 - M48.02) 09/30/2023 Spinal stenosis, cervical region (ICD-10 - M48.02) 11/17/2023 Spinal stenosis, cervical region (ICD-10 - M48.02) 11/17/2023 Other intervertebral disc degeneration, lumbar region (ICD-10 - M51.36) 09/30/2023 Other intervertebral disc degeneration, lumbar region (ICD-10 - M51.36) 08/20/2023 Other intervertebral disc degeneration, lumbar region (ICD-10 - M51.36) 08/20/2023 correction (current) use of anticoagulants (ICD-10 - Z79.01) The patient was instructed to discontinue xarelto for 3 days and meloxicam for 4 days prior to the procedure. I made the patient aware that he will be at an increased risk for a thromboembolic event during this time and he is willing to accept this risk. The patient was instructed to notify his primary care physician and/or chemical engineering technician to obtain clearance prior to discontinuing this medication. 09/30/2023 correction (current) use of anticoagulants (ICD-10 - Z79.01) The patient was instructed to discontinue xarelto for 3 days and meloxicam for 4 days prior to the procedure. I made the patient aware that he will be at an increased risk for a thromboembolic event during this time and he is willing to accept this risk. The patient was instructed to notify his primary care physician and/or chemical engineering technician to obtain clearance prior to discontinuing this medication. 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 Obtain informed consent: Bilateral Lumbar 3-5 Radiofrequency Ablation under fluoroscopy. Monitor pulse, blood pressure and SaO2 before, after and as needed during procedure. Verify if the patient is currently taking blood thinner. Verify patients is not currently on antibiotics for infection. Patient may drive home. CARE PLAN: Knowledge deficit: Will verbalize understanding of the proposed procedure, including risk of electrical burn, complications and benefits of the procedure? Will the patient exhibit understanding of the discharge instructions? Safety: The potential for injury related to surgery was assessed; Fire risk score determined, test completed if applicable. Risk for injury related to wrong patient, site, procedure. TIME OUT for safety of patient and includes patient name, , procedure site, side, level, allergies, blood thinners, antibiotics, surgical counts, consents correct and signed etc. Risk for infection: Implements aseptic technique, protects from cross-contamination, performs skin preparations. Pain/Discomfort: Patient verbalizes acceptable level of pain relief prior to discharge and the ability to engage in desired activity. I HAVE REVIEWED THE PATIENT'S MEDICATION LIST AND HAVE RECONCILED THE ABOVE MEDICATIONS. PATIENT GOALS AND SAFETY CONCERNS HAVE BEEN ADDRESSED. RN initials SW. 11/17/2023 Other The above-named patient was evaluated [...] dictated by ROSALINDA Orona PLAN OF TREATMENT Pending Test Test Name Order Date X ray : Knee, right 01/31/2021 MRI : Cervical Spine without Contrast ([id number]) 02/04/2022 MRI : Lumbar Spine with and without Cont rast ([id number]) 12/10/2022 MRI : Lumbar Spine without contrast (721 [id number]) 02/04/2022 MRI : Lumbar Spine without contrast (721 48) 04/14/2020 XRAY right shoulder 04/14/2020 [facility] 08/29/2021 Insurance Providers Payer Name Payer Address Payer Phone Subscriber Number Group Number Insured Name Patient Relationship to Insured Coverage Start Date Coverage End Date [employer] MEDICARE ADVANTAGE [address] [place] [address] [phone] [id number] AYLA HOLLIS Self - patient is the insured MEDICAL (GENERAL) HISTORY Medical History History ICD Code Hypertension Type II diabetes Bipolar disorder Anxiety Coronary artery disease Gastroesophageal reflux disease (GERD) PAD Surgical History Surgery Date(Month/Year) carpal tunnel release 2002 percutaneous transluminal coronary angio plasty 2012 Bilateral lower extremity stents 12/2016 Lumbar surgery--Dr. Justice 06/2020 Right total knee arthroplasty
--- OUTSIDE RECORDS SUMMARY | 2024-07-15 17:47 | XMS_ITS | Encounter Summary ---
Author Organization [facility] Address [address] [place] [address] Care Team Providers Care [employer] Name Role Phone Unavailable Primary Care Provider Unavailabl e Encounter Details Date Type Department Care Team (Late st Contact Info) Description 05/04/2024 Lab Requisition [facility] - DermPath Lab [address] [place] [phone] Jose Brito MD [facility] DERMATOLOGY [address] [place] [phone] Neoplasm of uncertain behavior of skin Social History Tobacco Use Types Packs/Day Years Used Date Smoking Tobacco: Never Assessed Sex and Gender Information Value Date Recorded Sex Assigned at Not on file Legal Sex 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 Gender Identity Not on file Sexual Orientation Not on file documented as of this encounter Plan of Treatment Not on file documented as of this encounter Procedures Procedure Name Priority Date/Time Associated Diagnosis Comments DERMATOPATHOLOGY Routine 05/04/2024 10:0 3 AM PUBLIC INFORMATION DIRECTOR Neoplasm of uncertain behavior of skin documented in this encounter Results * DERMATOPATHOLOGY (05/04/2024 10:03 AM PUBLIC INFORMATION DIRECTOR) Case Report Dermatopathology Report Case: [id number] Authorizing Provider: Jose Brito MD Collected: 05/04/2024 10:03 AM Ordering Location: [facility] Physician [facility] - Received: 05/07/2024 06:38 AM DermPath Lab Pathologist: Jana Brown MD Specimen: Skin, left anterior jaw 12:56 PM PUBLIC INFORMATION DIRECTOR DERMATOPATHOLOGY LABORATORY Final Diagnosis Specimen A. SKIN, left anterior jaw: DERMAL SCAR, PRESENT AT THE BASE RESIDUAL SQUAMOUS PROLIFERATION NOT IDENTIFIED (L90.5) 12:56 PM [facility] DERMATOPATHOLOGY LABORATORY Clinical History Atypical Squamous Proliferation Prior biopsy 12:56 PM [facility] DERMATOPATHOLOGY LABORATORY Gross Description Specimen A: Received is one formalin filled container labeled with the patient's name and designated left anterior jaw. The specimen consists of a shave biopsy measuring [id number] mm. Jar 0. 12:56 PM [facility] DERMATOPATHOLOGY LABORATORY Microscopic Description Specimen A. SKIN, left anterior jaw: There are elongated blood vessels, some of which are oriented perpendicular to the skin surface, which is present at the base of the specimen. No residual squamous proliferation is identified. 12:56 PM [facility] DERMATOPATHOLOGY LABORATORY Disclaimer An external and internal positive and negative controls are appropriate for the histochemical, immunohistochemical and immunofluorescence stain(s) in this case (if any), except where stated explicitly. The performance characteristics of the stain(s) cited in this report were developed and its performance characteristic determined by the Dermatopathology Laboratory at [facility], directed by Dr. Collin Mckeon. These tests need not be, and therefore are not, approved by the [place] Food and Drug Administration. The tests are used for clinical purposes. Billing Codes Specimen Charges Stain Charges 67920 1 12:56 PM [facility] DERMATOPATHOLOGY LABORATORY Embedded Images 12:56 PM [facility] DERMATOPATHOLOGY LABORATORY Pathology/Cytolo gy TISSUE SPECIMEN FROM SKIN / Unknown 05/04/2024 10:03 AM PUBLIC INFORMATION DIRECTOR 05/07/2024 6:38 AM [facility] us Jose Brito MD LAB - PATHOLOGY/CYTOLOGY BISI GARCIA Final Result DERMATOPATHOLOGY LABORATORY [facility] - Department of Dermatology [address] [place] [address], [facility] [phone] documented in this encounter Visit Diagnoses Diagnosis Neoplasm of uncertain behavior of skin documented in this encounter
[2024-07-15 17:49] VITALS: BP 117/75; PULSE 88; RESP 22; TEMP 36.9; O2SAT 100
--- OUTSIDE RECORDS SUMMARY | 2024-07-15 17:49 | XMS_ITS | Continuity of Care Document ---
Author Organization [facility] Address [address] [place] [address] [address] [place] [address] Phone Care Team Providers Care Signal Maintenance Technician Name Role Phone Short PT, Kathleen Unavailable Unavailable Procedures Procedure Date Therapeutic Activities Neuromuscular Re-Ed Manual Therapy Manual Therapy Neuromuscular Re-Ed Therapeutic Activities Hot or Cold Pack Therapeutic Activities Neuromuscular Re-Ed Manual Therapy Neuromuscular Re-Ed Manual Therapy Hot or Cold Pack Therapeutic Activities Manual Therapy Neuromuscular Re-Ed Hot or Cold Pack Therapeutic Activities Manual Therapy Manual Therapy Therapeutic Activities Neuromuscular Re-Ed Hot or Cold Pack PT Evaluation Moderate Complexity Therapeutic Activities Therapeutic Exercise Manual Therapy THERAPEUTIC EXERCISES NEUROMUSCULAR RE-ED Carrying, Moving And [...] Diagnoses Date Provider Providers Copied on Encounter [facility], [id number], tel:[phone] [place] No Information Mar-1 6202 2 Short Kathleen. . Referring Provider: Shukri Shannon [address], [place], [address]. tel:[phone] [facility] [address], [id number], tel:[phone] [place] No Information Mar-0 8202 2 Anusha Grimes. [address] [facility], [address], [place], [facility] [place] [facility] [place]. tel:[phone] Referring Provider: Shukri Shannon [address], [place], [address]. tel:[phone] [facility] [address] [address], [place], [place], [id number], tel:[phone] [place] No Information Mar-0 4-202 2 [place]. . Referring Provider: Shukri Shannon [address], [place], [address]. tel:[phone] [facility] [address], [place], [place], [id number], tel:[phone] [place] No Information May-0 2 Schranck Cornelio. [address] [place] [address], [address], [place], [place], [facility] [place] [facility] [place], . tel: [phone] Referring Provider: Shukri Shannon, [address], [place], [address]. tel:[phone] [facility] [facility], [place], [place], [id number], [place] tel:[phone] [place] No Information 2 [place]. . Referring Provider: [address], [place], [address]. tel:[phone] [facility], [address] [facility], [place], [place], [id number], tel:[phone] [place] No Information 2 Anusha Grimes. [address] [place] [address], [address], [place], [place], [facility] [place] [facility] [place], . tel: [phone] Referring Provider: [address], [place], [address]. tel:[phone] [facility] [facility], [place], [place], [id number], [place] tel:[phone] [place] No Information 2 Garrels Itzel. . Referring Provider: [address], [place], [address]. tel: [facility], [place], [place], [id number], [place] tel:[phone] [place] No Information 2 [place]. . Referring Provider: [address], [place], [address]. tel: [facility], [place], [place], [id number], tel:[phone] [place] No Information Sep-2 0-201 6 David Turner , [place], . [facility] [place] [address], [place], [place], [id number], tel:[phone] [place] No Information Sep-0 8-201 6 David Turner , [place], [place]. [facility] [address], [place], [place], [id number], tel:[phone] [place] No Information Sep-0 6-201 6 David Turner , [place], . [facility], [address] [address], [place], [place], [id number], tel:[phone] [place] Other spondylosis with myelopathy, lumbar regionLumbago with sciatica, left sideOther intervertebral disc degeneration, lumbar regionPain, unspecified Sep-0 1-201 6 David Turner , [place], . [facility], [address] [address], [place], [place], [id number], tel:[phone] [place] No Information Aug-3 0-201 6 David Turner [place], [place], . Family History Family Member Type Diagnosis Age At Onset No Information Payers Payer name Insurance type Covered democrat ID Authorbulla tirenu(s) Medicare [place] [id number] [employer]na Senior Supplemental [id number] Social History Type Description Quantity Date Captured [...]
--- NOTE | 2024-07-15 19:50 | ED.GENADULT ---
HPI - General Adult General Chief complaint: Urogenital-Male Stated complaint: Chills/Abdominal Pain/Blood Urinary Source: patient, RN notes reviewed and old records reviewed Mode of arrival: ambulatory Limitations: no limitations History of Present Illness HPI narrative: 73 year old male accompanied by with complaints of having chills today and having some sharp middle region abdominal pain and he noted some blood on toilet. Patient reports that he has some back pain normally and pain has not been worse. Patient reports that he has had episodes of shivering off and on for 3 weeks. Patient sees primary care provider and gastro doctor at [facility]. Patient reports BM few days ago which was firm and small. Urine dip completed with no evidence of blood in urine, urobilinogen 1.0. Patient reports that he has taken some Tylenol for his discomfort MD complaint: abdominal pain, shivering Onset (ago): hour(s) (this afternoon) Location: abdomen (mid abdomen) Severity scale (1-10): 3 Quality: aching and sharp Treatments prior to arrival: other (Tylenol) Related Data Home Medications ?Medication ?Instructions ?Recorded ?Confirmed ?Last Taken ?Type amlodipine 5 mg tablet 5 mg PO DAILY 10/27/19 07/16/24 Unknown History bupropion HCl 300 mg 24 hr tablet, 300 mg PO QAM 10/27/19 07/16/24 07/15/24 History extended release clonazepam 1 mg tablet 1 mg PO HS PRN anxiety 10/27/19 07/16/24 Unknown History meloxicam 15 mg tablet 15 mg PO DAILY 10/27/19 07/16/24 Unknown History metoprolol tartrate 25 mg tablet 25 mg PO DAILY 10/27/19 07/16/24 Unknown History omeprazole 20 mg capsule,delayed 40 mg PO DAILY 10/27/19 07/16/24 Unknown History release buspirone 15 mg tablet 15 mg PO BID 07/15/24 07/16/24 07/15/24 History evolocumab 140 mg/mL subcutaneous 140 mg subcut .every other week 07/15/24 07/16/24 Unknown History pen injector (Ramandeep Springer) furosemide 20 mg tablet 20 mg PO DAILY 07/15/24 07/16/24 07/15/24 History pregabalin 200 mg capsule 200 mg PO Q12H 07/15/24 07/16/24 Unknown History semaglutide 0.25 mg or 0.5 mg (2 0.25 mg subcut WEEKLY 07/15/24 07/16/24 Unknown History mg/3 mL) subcutaneous pen injector (Ozempic) sildenafil (pulm.hypertension) 20 20 mg PO PRN PRN sexual activity 07/15/24 07/16/24 Unknown History mg tablet tadalafil 5 mg tablet 5 mg PO PRN PRN sexual activity 07/15/24 07/16/24 Unknown History tamsulosin 0.4 mg capsule 0.4 mg PO DAILY 07/15/24 07/16/24 Unknown History atorvastatin 20 mg tablet 20 mg PO DAILY 07/16/24 07/16/24 Unknown History carvedilol 3.125 mg tablet 3.125 mg PO BID 07/16/24 07/16/24 Unknown History duloxetine 60 mg capsule,delayed 60 mg PO DAILY 07/16/24 07/16/24 Unknown History release felodipine 10 mg tablet,extended 10 mg PO DAILY 07/16/24 07/16/24 Unknown History release 24 hr fluticasone propionate 50 1 spray intranasal Q12H 07/16/24 07/16/24 Unknown History mcg/actuation nasal spray,suspension lisinopril 40 mg tablet 40 mg PO DAILY 07/16/24 07/16/24 Unknown History potassium chloride 20 mEq 20 meq PO DAILY 07/16/24 07/16/24 07/15/24 History tablet,extended release (K-Tab) rivaroxaban 20 mg tablet 20 mg PO DAILY 07/16/24 07/16/24 07/15/24 History tizanidine 4 mg capsule 4 mg PO Q6H PRN muscle spasticity 07/16/24 07/16/24 Unknown History Allergies Allergy/AdvReac Type Severity Reaction Status Date / Time citalopram Allergy Unknown Hives Verified 07/15/24 20:36 hydralazine Allergy Unknown Hives Verified 07/15/24 20:36 Penicillins Allergy Unknown hives Verified 07/15/24 20:36 Review of Systems Review of Systems: CONSTITUTIONAL: Denies fever, positive for chills, or sweats. EYES: Denies visual changes, redness, or discharge. ENT: Denies rhinorrhea, congestion, sore throat, or otalgia. CARDIOVASCULAR: Denies chest pain, palpitations, or edema. RESPIRATORY: Denies cough or dyspnea. GASTROINTESTINAL: Reports mid abdominal , nausea,no vomiting, or diarrhea. GENITOURINARY: Denies dysuria or visible hematuria, reports noted some blood on toilet SKIN: Denies rash or itching. MUSCULOSKELETAL: Reports some chronic back pain, joint pain, or myalgia. NEUROLOGIC: Denies headache, numbness, or weakness. PSYCHIATRIC: Reports anxiety or depression. All systems reviewed & are unremarkable except as noted in HPI and below PMFSH Past Medical History Medical History (Updated 07/16/24 @ 20:41 by Stephanie Roe NP) HONORIO (obstructive sleep apnea) Balanitis Gout Hyperlipidemia HTN (hypertension) Surgical History Surgical History (Updated 07/16/24 @ 20:41 by Stephanie Roe NP) H/O angioplasty Family History Family History Sibling Diabetes mellitus Family history of mental disorder, Onset Age: 63 Family history of cardiovascular disease, Onset Age: 63 Acute myocardial infarction Family history of malignant neoplasm Mother Family history of mental disorder, Onset Age: 56 Other Family history of seizure disorder Social History Social History Smoking status: Former smoker Alcohol intake: current Drinks per week: 30 Substance use type: does not use Do You Feel Safe in your Home?: Yes Lack of Transportation: No Lack of Food: Never True Current Housing: I Have Housing Concerned About Future Housing: No Difficulty Paying Gas/Electric Bills: No Difficulty Paying for Meds: No Currently Unemployed: No Education: Associate Degree Difficulty w/ Childcare or Family Care: No Spiritual care concerns: No Comments At time of signature, agree with nursing past medical, surgical, social and family history. There is no relevant family history pertinent to the presenting complaint Exam Narrative: GENERAL: Chronic ill appearing, well-nourished,obese and in no acute distress. HEAD: Normocephalic, atraumatic. EYES: PERRLA and EOMI. ENT: Nares clear, no rhinorrhea or epistaxis. Mucous membranes moist. NECK: Supple. no lymphadenopathy CHEST: Clear to auscultation. No respiratory distress. SO2 100% on room air HEART: Regular rate and rhythm. No murmur heard. Normal peripheral pulses. ABDOMEN: Soft, generalized tender mid abdomen denies any sharp pain at this time no McBurney point tenderness, nondistended, rounded abdomen normal active bowel sounds. EXTREMITIES: Normal range of motion. No edema. SKIN: Warm, dry, no rash. NEURO: No focal deficits. Alert and oriented x3. Course Course Emergency Course: Patient is aware of diagnosis, understands and agrees to treatment plan.? Anticipatory guidance given.? Patient agrees to follow-up as directed and is aware of reasons to seek care at the emergency department. Portions of this record may have been created with voice recognition software Level of Care: Express Care Visit Vital Signs Vital signs: Vital Signs Temperature 36.9 C 07/15/24 17:49 Pulse Rate 88 07/15/24 17:49 Respiratory Rate 22 H 07/15/24 17:49 Blood Pressure 117/75 07/15/24 17:49 Pulse Oximetry 100 07/15/24 17:49 Oxygen Delivery Room Air 07/15/24 17:49 Temperature 36.9 C 07/15/24 17:49 Pulse Rate 88 07/15/24 17:49 Respiratory Rate 22 H 07/15/24 17:49 Blood Pressure 117/75 07/15/24 17:49 Pulse Oximetry 100 07/15/24 17:49 Oxygen Delivery Room Air 07/15/24 17:49 Reviewed Transfer Transfered to: [place] Transportation: Other (private car with ) Transfer rationale: Needs further evaluation of abdominal pain and episodes of chills, need labs and CT. Accepting physician: Dr Wilkes Transfer comments: Patient transferred per private car with for further evaluation instructed nothing by mouth Medical Decision Making MDM Narrative Medical decision making narrative: place to ED at [facility] with condition update, VS and PMH reviewed with Aminata JEFFRIES, with Dr Wilkes accepting patient for transfer. Differential Diagnosis Differential Diagnosis: abdominal pain, gall bladder disease, bowel obstruction, pancreatitis, liver disease Medical Records Medical records reviewed: Yes I reviewed the external patient's medical records. Vital Signs Vital Signs: Vital Signs Temperature 36.9 C 07/15/24 17:49 Pulse Rate 88 07/15/24 17:49 Respiratory Rate 22 H 07/15/24 17:49 Blood Pressure 117/75 07/15/24 17:49 Pulse Oximetry 100 07/15/24 17:49 Oxygen Delivery Room Air 07/15/24 17:49 Temperature 36.9 C 07/15/24 17:49 Pulse Rate 88 07/15/24 17:49 Respiratory Rate 22 H 07/15/24 17:49 Blood Pressure 117/75 07/15/24 17:49 Pulse Oximetry 100 07/15/24 17:49 Oxygen Delivery Room Air 07/15/24 17:49 reviewed Lab Data Lab results reviewed: Yes I reviewed the patient's lab results. Labs: Lab Results 07/15/24 Range/Units 18:16 POC Urine Color Yellow POC Urine Clarity Clear POC Urine pH 6.5 POC Ur Specif [place] 1.015 POC Urine Protein Negative (Negative) POC Ur Glucose (UA) Negative (Negative) POC Urine Ketones Negative (Negative) POC Urine Blood Negative (Negative) POC Urine Nitrite Negative (Negative) POC Urine Bilirubin Negative (Negative) POC Urine Urobilinogen 1.0 POC U Leukocyte Esteras Negative (Negative) reviewed Critical Care Time Critical Care Time Critical Care Time: No Discharge Plan Discharge Clinical Impression: Chills (without fever) Abdominal pain Qualifiers: Abdominal location: upper abdomen, unspecified Qualified Code(s): R10.10 - Upper abdominal pain, unspecified Patient Disposition: Acute Care Hospital Condition: Stable Instructions: Antibiotic Form Patient Language: Vietnamese Prescriptions: No Action tamsulosin 0.4 mg capsule 0.4 mg PO DAILY furosemide 20 mg tablet 20 mg PO DAILY buspirone 15 mg tablet 15 mg PO BID tadalafil 5 mg tablet 5 mg PO PRN PRN (Reason: sexual activity) sildenafil (pulm.hypertension) 20 mg tablet 20 mg PO PRN PRN (Reason: sexual activity) pregabalin 200 mg capsule 200 mg PO Q12H Repatha SureClick 140 mg/mL pen injector 140 mg SUBCUT .every other week Patient Comments: next dose 07/17/2024 Ozempic 0.25 mg or 0.5 mg (2 mg/3 mL) pen injector 0.25 mg SUBCUT WEEKLY clonazepam 1 mg tablet 1 mg PO HS PRN (Reason: anxiety) meloxicam 15 mg tablet 15 mg PO DAILY bupropion HCl 300 mg tablet extended release 24 hr 300 mg PO QAM omeprazole 20 mg capsule,delayed release(DR/EC) 40 mg PO DAILY amlodipine 5 mg tablet 5 mg PO DAILY metoprolol tartrate 25 mg tablet 25 mg PO DAILY atorvastatin 20 mg tablet 20 mg PO DAILY lisinopril 40 mg tablet 40 mg PO DAILY rivaroxaban 20 mg tablet 20 mg PO DAILY Rx Instructions: must administer with evening meal carvedilol 3.125 mg tablet 3.125 mg PO BID Rx Instructions: with meals felodipine 10 mg tablet extended release 24 hr 10 mg PO DAILY duloxetine 60 mg capsule,delayed release(DR/EC) 60 mg PO DAILY fluticasone propionate 50 mcg/actuation spray,suspension 1 spray INTRANASAL Q12H tizanidine 4 mg capsule 4 mg PO Q6H PRN (Reason: muscle spasticity) Rx Instructions: do not exceed 3 doses per 24 hrs potassium chloride [K-Tab] 20 mEq tablet extended release 20 meq PO DAILY Follow-up/Referrals: UNKNOWN,DOCTOR [Primary Care Provider] - Time of Disposition: 20:05 Quality [place] Coma Scale Eyes: Open Verbal: Oriented and Alert Motor: Follows Commands [place] Coma Total Score: 15
[2024-07-15 20:33] LABS: EDUAAPPEAR Clear; EDUABILI Negative (Negative); EDUABLOOD Negative (Negative); EDUACOLOR1 Yellow; EDUAGLUCOSE Negative (Negative); EDUAKETONE Negative (Negative); EDUALEUKO Negative (Negative); EDUANITRATE Negative (Negative); EDUAPH 6.5; EDUAPROTEIN Negative (Negative); EDUASPGRAVITY 1.015
== END 2024-07-15 20:05 | disposition short-term general hospital (02) ==
PROVIDERS: Emergency Provider Registered Nurse
DX: R68.83 Chills (without fever) (principal); R10.10 Upper abdominal pain, unspecified; I10 Essential (primary) hypertension; E78.5 Hyperlipidemia, unspecified; M10.9 Gout, unspecified; Z87.891 Personal history of nicotine dependence
CPT/HCPCS: 74019; 81003; 99213; G0463

== ENCOUNTER 2024-07-15 20:35 | Inpatient (IN) | payer MEDICARE, SELFPAY ==
--- NOTE | ~2024-07-15 | XR_ITS ---
EXAMINATION: XR ERCP DATE: 07/20/2024 16:20 INDICATION: Gallstones TECHNIQUE: 3 spot fluoroscopic images of the right upper quadrant were obtained during endoscopic ret rograde cholangiopancreatography (ERCP) performed by Dr. Stanley Love. Radiologist was not present for the imaging or procedure. The amount of fluoroscopy time used during this procedure was 1.9 abigail patrick. Total DAP was 1.70 mGym^2. COMPARISON: MRCP dated 07/17/2024 FINDINGS: Images demonstrate cannulation and retrograde contrast injection into the common bile duct which appe ars normal. On the initial image injected contrast outlines a single round lucent filling defect in t he distal common bile duct likely representing the stone identified on the recent prior MRCP. Subsequ ent image demonstrates a second slightly larger and more lucent filling defect in the distal common b ile duct which likely represents a sweeping balloon. IMPRESSION: 1. Fluoroscopy utilized during ERCP with likely redemonstration of a stone in the distal common bile duct. Please refer to the ERCP procedure note for additional details. Reviewed, dictated and finalized at location A. IMPRESSION: 1. Fluoroscopy utilized during ERCP with likely redemonstration of a stone in t he distal common bile duct. Please refer to the ERCP procedure note for additio nal details.
--- NOTE | ~2024-07-15 | MR_ITS ---
EXAMINATION: MR MRCP wo/w con/w 3D wo ind DATE: 07/17/2024 16:43 INDICATION: Elevated liver function tests. Gallstones. Common bile duct prominence. TECHNIQUE: Magnetic resonance imaging (MRI) of the abdomen was performed without and with 20 mL Multi ashely intravenous contrast. Sequences included coronal T2-weighted SS-FSE, coronal T2-weighted FS SS- FSE, coronal T2-weighted FS FIESTA, axial T2-weighted FS FIESTA, axial T2-weighted FIESTA, sagittal T 2-weighted SS-FSE, axial T1-weighted dual-echo FSPGR, axial T2-weighted SS-FSE, axial T1-weighted LAV A, axial T2-weighted STIR FSE. Thick-slab T2-weighted FRFSE-XL images were obtained for magnetic reso nance cholangiopancreatography (MRCP). Rotating maximum intensity projection 3-D reconstructions of t he volumetric data were created by the technologist. Postcontrast sequences included a time course of axial T1-weighted LAVA. COMPARISON: CT dated 07/15/2024 FINDINGS: ABDOMEN MRI: Heart size is normal. No pericardial or pleural effusion. Liver is normal with no intrahepatic biliar y ductal dilation. Multiple gallstones within the dependent aspect of the otherwise normal-appearing gallbladder with no wall thickening or pericholecystic edema to suggest acute cholecystitis. Spleen, pancreas, bilateral adrenal glands and left kidney are normal. 4 mm T2 hyperintense nonenhancing righ t renal cyst. There are scattered diverticulosis without adjacent from trace stranding to suggest div erticulitis. Again seen is an ovoid region of macroscopic fat with low signal intensity rim margin of the distal descending colon consistent with epiploic appendagitis. No bowel obstruction. Visualized portion of the bladder is unremarkable. No pathologically enlarged abdominal or upper pelvic lymphade nopathy. Severe lumbar spondylosis with associated fibrofatty degenerative endplate changes. L5 spond ylolysis with grade 1 anterolisthesis on S1. ABDOMEN MRCP: Mild dilation the common bile duct which measures up to 8 mm. The common bile duct is normal in calib er measuring up to 6 mm. There is a 6 mm low signal intensity stone at the distalmost common bile bonilla t which is best appreciated on coronal series 4, image 27. There is intraluminal low signal intensity measuring approximately 2 mm diameter in the posterior aspect of the common bile duct extending 4 cm proximally from the stone which could represent sludge, numerous contiguous tiny gallstones or flow artifact. IMPRESSION: 1. Cholelithiasis and choledocholithiasis with 6 mm stone at the distal aspect of the common bile bonilla t with mild dilation the common hepatic duct 8 mm but with no intrahepatic biliary ductal dilation. 2. Epiploic appendagitis along the distal descending colon. 3. Diverticulosis. Reviewed, dictated and finalized at location A. IMPRESSION: 1. Cholelithiasis and choledocholithiasis with 6 mm stone at the distal aspect of the common bile duct with mild dilation the common hepatic duct 8 mm but wit h no intrahepatic biliary ductal dilation. 2. Epiploic appendagitis along the distal descending colon. 3. Diverticulosis.
--- NOTE | ~2024-07-15 | CT_ITS ---
CLINICAL INDICATION: Fatigue, chills and abdominal pain COMPARISON: None. TECHNIQUE: Multiple contiguous axial images of the abdomen and pelvis were performed following the ad ministration of with 100 mL Omnipaque-350 intravenous contrast The dose-length product (DLP) was 1522.31 mGy-cm. Automated exposure control and iterative reconstruction technique were employed. FINDINGS/OBSERVATIONS: Visualized lower thorax: The bilateral lung bases are clear. The heart is of normal size, without pericardial effusion. Small hiatal hernia is present. Liver: The liver demonstrates homogeneous enhancement and is enlarged measuring 21 cm in longitudinal dimens ion. Gallbladder and biliary system: The gallbladder is only minimally distended, containing multiple stones and is otherwise unremarkable . Prominence of the common bile duct is also identified, possibly related to positioning of the patient within the gantry. Pancreas: The pancreas enhances homogeneously without ductal dilatation. Spleen: The spleen enhances homogeneously and is borderline enlarged measuring 12 cm in longitudinal dimensio n.. Kidneys: The bilateral kidneys enhance symmetrically without hydronephrosis or renal calculi. Adrenal glands: Unremarkable. Gastrointestinal tract: Colonic diverticulosis without surrounding inflammatory change. Adjacent to the descending colon is an ovoid fat density lesion adjacent to the colon wall with a hyp erattenuating ring with central high density area. These findings are most consistent with epiploic a ppendagitis. Appendix: The air-filled appendix is of normal caliber (axial series, image 131). Vasculature: Calcified atherosclerotic disease. Lymph nodes: No pathologically enlarged or morphologically suspicious lymph nodes within the retroperitoneum or at the root of the mesentery. Pelvic structures: The bladder is minimally distended, and otherwise unremarkable. The prostate gland is not enlarged. Body wall and musculoskeletal: Age-appropriate degenerative disease within the lumbosacral spine. IMPRESSION: Cholelithiasis prominence of the common bile duct. Epiploic appendagitis. Diverticulosis without surrounding inflammatory change. Hepatomegaly. Borderline splenomegaly. Reviewed, dictated and finalized at location A.
--- OUTSIDE RECORDS SUMMARY | 2024-07-15 20:37 | XMS_ITS | Encounter Summary ---
Author Organization [facility] Address [address] [place] [address] Care Team Providers Care Campaign Marketing Manager Name Role Phone Unavailable Primary Care Provider Unavailabl e Encounter Details Date Type Department Care Team (Late st Contact Info) Description 05/04/2024 Lab Requisition [facility] - DermPath Lab [address] [place] [id number] Jose Brito MD [facility] DERMATOLOGY [address] [place] [phone] Neoplasm of uncertain behavior of skin Social History Tobacco Use Types Packs/Day Years Used Date Smoking Tobacco: Never Assessed Sex and Gender Information Value Date Recorded Sex Assigned at Not on file Legal 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 Gender Identity Not on file Sexual Orientation Not on file documented as of this encounter Plan of Treatment Not on file documented as of this encounter Procedures Procedure Name Priority Date/Time Associated Diagnosis Comments DERMATOPATHOLOGY Routine 05/04/2024 10:0 3 AM OVERHEAD CRANE TRUCK LOADER Neoplasm of uncertain behavior of skin documented in this encounter Results * DERMATOPATHOLOGY (05/04/2024 10:03 AM OVERHEAD CRANE TRUCK LOADER) Case Report Dermatopathology Report Case: [id number] Authorizing Provider: Jose Brito MD Collected: 05/04/2024 10:03 AM Ordering Location: [facility] Physician [facility] - Received: 05/07/2024 06:38 AM DermPath Lab Pathologist: Jana Brown MD Specimen: Skin, left anterior jaw 12:56 PM OVERHEAD CRANE TRUCK LOADER DERMATOPATHOLOGY LABORATORY Final Diagnosis Specimen A. SKIN, left anterior jaw: DERMAL SCAR, PRESENT AT THE BASE RESIDUAL SQUAMOUS PROLIFERATION NOT IDENTIFIED (L90.5) 12:56 PM [facility] DERMATOPATHOLOGY LABORATORY Clinical History Atypical Squamous Proliferation Prior biopsy 12:56 PM [facility] DERMATOPATHOLOGY LABORATORY Gross Description Specimen A: Received is one formalin filled container labeled with the patient's name and designated left anterior jaw. The specimen consists of a shave biopsy measuring [id number] mm. Jar 0. 12:56 PM [facility] DERMATOPATHOLOGY LABORATORY Microscopic Description Specimen A. SKIN, left anterior jaw: There are elongated blood vessels, some of which are oriented perpendicular to the skin surface, which is present at the base of the specimen. No residual squamous proliferation is identified. 12:56 PM [facility] DERMATOPATHOLOGY LABORATORY Disclaimer An external and internal positive and negative controls are appropriate for the histochemical, immunohistochemical and immunofluorescence stain(s) in this case (if any), except where stated explicitly. The performance characteristics of the stain(s) cited in this report were developed and its performance characteristic determined by the Dermatopathology Laboratory at [facility], directed by Dr. Collin Mckeon. These tests need not be, and therefore are not, approved by the [place] Food and Drug Administration. The tests are used for clinical purposes. Billing Codes Specimen Charges Stain Charges 18030 1 12:56 PM [facility] DERMATOPATHOLOGY LABORATORY Embedded Images 12:56 PM [facility] DERMATOPATHOLOGY LABORATORY Pathology/Cytolo gy TISSUE SPECIMEN FROM SKIN / Unknown 05/04/2024 10:03 AM OVERHEAD CRANE TRUCK LOADER 05/07/2024 6:38 AM [facility] us Jose Brito MD LAB - PATHOLOGY/CYTOLOGY BISI GARCIA Final Result DERMATOPATHOLOGY LABORATORY [facility] - Department of Dermatology [address] [place] [address], [facility] [phone] documented in this encounter Visit Diagnoses Diagnosis Neoplasm of uncertain behavior of skin documented in this encounter
--- OUTSIDE RECORDS SUMMARY | 2024-07-15 20:37 | XMS_ITS | Clinical Summary ---
Author Organization [facility] Address [address] [place] [address] Care Team Providers Care Event Crew Technician Name Role Phone Unavailable Primary Care Provider Unavailabl e Source Comments [facility],non-owned Affiliates and Associated Physician Practices is amultiple site organization consisting of ambulatory clinics and hospital sitesin [place], [place], [place] and [place]. This disclosure is being madepursuant to the Care Everywhere program and may not contain all information available regarding this patient. 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 Gender Identity Not on file Sexual Orientation [...] Comments DERMATOPATHOLOGY Routine 05/04/2024 10:0 3 AM RIB TRIM SEPARATOR Neoplasm of uncertain behavior of skin from Last 3 Months Results * DERMATOPATHOLOGY (05/04/2024 10:03 AM RIB TRIM SEPARATOR) Case Report Dermatopathology Report Case: [id number] Authorizing Provider: Jose Brito MD Collected: 05/04/2024 10:03 AM Ordering Location: [facility] - Received: 05/07/2024 06:38 AM DermPath Lab Pathologist: Jana Brown MD Specimen: Skin, left anterior jaw 12:56 PM RIB TRIM SEPARATOR DERMATOPATHOLOGY LABORATORY Final Diagnosis Specimen A. SKIN, left anterior jaw: DERMAL SCAR, PRESENT AT THE BASE RESIDUAL SQUAMOUS PROLIFERATION NOT IDENTIFIED (L90.5) 12:56 PM RIB TRIM SEPARATOR DERMATOPATHOLOGY LABORATORY Clinical History Atypical Squamous Proliferation Prior biopsy 12:56 PM RIB TRIM SEPARATOR DERMATOPATHOLOGY LABORATORY Gross Description Specimen A: Received is one formalin filled container labeled with the patient's name and designated left anterior jaw. The specimen consists of a shave biopsy measuring [id number] mm. Jar 0. 12:56 PM RIB TRIM SEPARATOR DERMATOPATHOLOGY LABORATORY Microscopic Description Specimen A. SKIN, left anterior jaw: There are elongated blood vessels, some of which are oriented perpendicular to the skin surface, which is present at the base of the specimen. No residual squamous proliferation is identified. 5 12:56 PM [facility] DERMATOPATHOLOGY LABORATORY Disclaimer An external and internal positive and negative controls are appropriate for the histochemical, immunohistochemical and immunofluorescence stain(s) in this case (if any), except where stated explicitly. The performance characteristics of the stain(s) cited in this report were developed and its performance characteristic determined by the Dermatopathology Laboratory at [facility], directed by Dr. Collin Mckeon. These tests need not be, and therefore are not, approved by the [place] Food and Drug Administration. The tests are used for clinical purposes. Billing Codes Specimen Charges Stain Charges 21514 1 5 12:56 PM [facility] DERMATOPATHOLOGY LABORATORY Embedded Images 5 12:56 PM [facility] DERMATOPATHOLOGY LABORATORY Pathology/Cytolo gy TISSUE SPECIMEN FROM SKIN / Unknown 05/04/2024 10:03 AM RIB TRIM SEPARATOR 05/07/2024 6:38 AM RIB TRIM SEPARATOR Jose Brito MD LAB - PATHOLOGY/CYTOLOGY BISI GARCIA Final Result DERMATOPATHOLOGY LABORATORY [facility] - Department of Dermatology [facility] Medicine [address] [place] [address], [address] [phone] from Last 3 Months [place] [address] [employer] MANAGED MEDICARE ADV
--- OUTSIDE RECORDS SUMMARY | 2024-07-15 20:37 | XMS_ITS | Encounter Summary ---
Author Organization [facility] Address [address] [place] [address] Care Team Providers Care Machinist Class B Name Role Phone Unavailable Primary Care Provider Unavailabl e Encounter Details Date Type Department Care Team (Late st Contact Info) Description 07/22/2023 Lab Requisition [facility] - DermPath Lab [address] [place] [phone] Birdie Brito APRN-CNP [facility] DERMATOLOGY [address] [place] [phone] Neoplasm of uncertain behavior of skin Social History Tobacco Use Types Packs/Day Years Used Date Smoking Tobacco: Never Assessed Sex and Gender Information Value Date Recorded Sex Assigned at Not on file Legal Sex Male 6:23 PM HAND SPLITTER Gender Identity Not on file Sexual Orientation Not on file documented as of this encounter Plan of Treatment Not on file documented as of this encounter Procedures Procedure Name Priority Date/Time Associated Diagnosis Comments DERMATOPATHOLOGY Routine 07/22/2023 12:0 0 AM CDT Neoplasm of uncertain behavior of skin documented in this encounter Results * DERMATOPATHOLOGY (07/22/2023 12:00 AM CDT) Case Report Dermatopathology Report Case: [id number] Authorizing Provider: Birdie Brito, Collected: 07/22/2023 12:00 AM BOOK PUBLISHERAPPLE Ordering Location: [facility] - Received: 07/23/2023 02:55 PM DermPath Lab Pathologist: Graciela Cortes MD Specimen: Skin, left lateral denominational 12:58 PM CDT DERMATOPATHOLOGY LABORATORY Final Diagnosis Specimen A. 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 The specimen consists of a shave biopsy measuring 10x7x2 mm. Jar 0. 12:58 PM CDT DERMATOPATHOLOGY LABORATORY Microscopic Description Specimen A. SKIN, left lateral denominational: The epidermis shows parakeratosis, full thickness disorderly [...] characteristic determined by the Dermatopathology Laboratory at [facility], directed by Dr. Collin Mckeon. These tests need not be, and therefore are not, approved by the [place] Food and Drug Administration. The tests are used for clinical purposes. Billing Codes Specimen Charges Stain Charges 34016 1 12:58 PM CDT DERMATOPATHOLOGY LABORATORY Embedded Images 12:58 PM CDT DERMATOPATHOLOGY LABORATORY Pathology/Cytolog y TISSUE SPECIMEN FROM SKIN / Unknown 07/22/2023 07/23/2023 2:55 PM CDT us Birdie Brito BOOK PUBLISHER-NARROW FABRIC CALENDERER LAB - PATHOLOGY/CY TOLOGY ORDERABLES Final Result DERMATOPATHOLOGY LABORATORY [facility] - Department of Dermatology [address], [address] [place] [address], [facility] [phone] documented in this encounter Visit Diagnoses Diagnosis Neoplasm of uncertain behavior of skin documented in this encounter
--- OUTSIDE RECORDS SUMMARY | 2024-07-15 20:37 | XMS_ITS | Clinical Summary ---
Author Organization [facility] Address [address] [place] [address] Care Team Providers Care Equipment Operator Warehouse Name Role Phone Unavailable Primary Care Provider [...]
--- OUTSIDE RECORDS SUMMARY | 2024-07-15 20:37 | XMS_ITS | Encounter Summary ---
Author Organization [facility] Address [address] [facility] [place] [address] Care Team Providers Care Internal Corrosion Specialist Name Role Phone Unavailable Primary Care Provider Unavailabl e Encounter Details Date Type Department Care Team (Late st Contact Info) Description 01/22/2024 Lab Requisition [facility] - DermPath Lab [address] [place] [phone] Birdie Brito APRN-CNP [facility] DERMATOLOGY [address] [place] [phone] Neoplasm of uncertain behavior of skin Social History Tobacco Use Types Packs/Day Years Used Date Smoking Tobacco: Never Assessed Sex and Gender Information Value Date Recorded Sex Assigned at Not on file Legal Sex Male 6:23 PM TRIMMER HELPER Gender Identity Not on file Sexual Orientation Not on file documented as of this encounter Plan of Treatment Not on file documented as of this encounter Procedures Procedure Name Priority Date/Time Associated Diagnosis Comments DERMATOPATHOLOGY Routine 01/22/2024 12:0 0 AM TRIMMER HELPER Neoplasm of uncertain behavior of skin documented in this encounter Results * DERMATOPATHOLOGY (01/22/2024 12:00 AM TRIMMER HELPER) Case Report Dermatopathology Report Case: [id number] Authorizing Provider: Birdie Brito, Collected: 01/22/2024 12:00 AM VETERANS CONTACT REPRESENTATIVE-STRAINER TENDER Ordering Location: [facility] - Received: 01/23/2024 10:18 AM DermPath Lab Pathologist: Henrietta Carvalho MD Specimens: A) - Skin, left anterior jaw B) - Skin, left posterior jaw 2:41 PM TRIMMER HELPER DERMATOPATHOLOGY LABORATORY Final Diagnosis Specimen A. 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 Jar 0. 2:41 PM [facility] DERMATOPATHOLOGY LABORATORY Microscopic Description Specimen [...] is surrounding dermal fibrosis. 4 2:41 PM [facility] DERMATOPATHOLOGY LABORATORY Disclaimer An external and internal positive and negative controls are appropriate for the histochemical, immunohistochemical and immunofluorescence stain(s) in this case (if any), except where stated explicitly. The performance characteristics of the stain(s) cited in this report were developed and its performance characteristic determined by the Dermatopathology Laboratory at [facility], directed by Dr. Collin Mckeon. These tests need not be, and therefore are not, approved by the [place] Food and Drug Administration. The tests are used for clinical purposes. Billing Codes Specimen Charges Stain Charges 87945 62523 1 1 4 2:41 PM TRIMMER HELPER DERMATOPATHOLOGY LABORATORY Embedded Images 4 2:41 PM TRIMMER HELPER DERMATOPATHOLOGY LABORATORY Pathology/Cytology TISSUE SPECIMEN FROM SKIN / Unknown 01/22/2024 01/23/2024 10:18 AM TRIMMER HELPER Miscellaneous samples (specimen) TISSUE SPECIMEN FROM SKIN / Unknown 01/22/2024 01/23/2024 10:18 AM TRIMMER HELPER us Birdie Brito VETERANS CONTACT REPRESENTATIVE-STRAINER TENDER LAB - PATHOLOGY/CY TOLOGY ORDERABLES Final Result DERMATOPATHOLOGY LABORATORY [facility] - Department of Dermatology [facility] Specialized Medicine [address] [place] [address], [address]rd Floor [address] [phone] documented in this encounter Visit Diagnoses Diagnosis Neoplasm of uncertain behavior of skin documented in this encounter
--- OUTSIDE RECORDS SUMMARY | 2024-07-15 20:38 | XMS_ITS | Encounter Summary ---
Author Organization [facility] Address [address] [place] [address] Care Team Providers Care Rn Postpartum Name Role Phone Mirian Wallace MD Primary Care Provider [phone] Encounter Details Date Type Department Care Team (Latest Contact Info) Description 03/30/2024 Results Follow-Up [facility] GASTROENTEROLOGY - [address] [facility] 102 [address] [facility] 102 [place] [address] Nhan Ortiz, [address] [facility] [address] [place] [address] [place] ABDOMEN LIMITED, HEPATITIS B [...] on file Legal Sex Male 4:59 AM REHABILITATION SERVICES AIDE Gender Identity Not on file Sexual Orientation Not on file documented as of this encounter Plan of Treatment Upcoming Encounters Date Type Department Care Team (Late st Contact Info) Description 08/11/2024 3:15 PM CDT Office Visit [facility] HEART AND VASCULAR EP AT [facility] [address] [facility] 2014 [place] [address] Bill De Anda MD [address] [facility] 2014 [place] [address] 08/18/2024 11:30 AM CDT Office Visit [facility] Primary Care - [address] [address] [place] Wallace [place] [id number] [place] [address] 09/15/2024 11:30 AM CDT Office Visit [facility] HEART AND VASCULAR - [place] [id number] [place] [address] Flo Donahue MD [address] [facility] 2014 [place] [address] 09/21/2024 11:00 AM CDT Office Visit [facility] Neurology [address] [facility] [address] [place] [address] Ashley Holloway, [facility] [address] [facility] [address] [place] [address] 10/05/2024 1:15 PM CDT Office Visit [facility] GASTROENTEROLOGY - [address] [facility] 102 [address] [facility] 102 [place] [address] Konrad Aburto, [facility] [address] [facility] 102 [place] [address] 11/26/2024 1:00 PM CDT Office Visit [facility] Pulmonology [facility] [address] [facility] [address] [place] [address] Silvio Avalos, [facility] [address] [facility] [place] [address] 12/27/2024 1:30 PM CDT Office Visit [facility] HEART AND VASCULAR EP AT [facility] [address] [facility] [address] [place] [address] Guerrero Lind MD [address] [facility] [address] [place] [address] 09/22/2025 11:00 AM CDT Office Visit [facility] Neurology [address] [facility] [address] [place] [address] Carmine Castano MD [address] [facility] [address] [place] [address] documented as of this encounter Visit Diagnoses Not on filedocumented in this encounter Additional Health Concerns Assessment Noted Time PHQ-9 Depression Total Score: 2 08/08/19 24 3:47 PM CDT documented as of this encounter Care Teams Rn Postpartum Relationship Specialty Start Date End Date Rodrigo, [place] [address] [address] PCP - General 05/07/12 documented as of this encounter
--- OUTSIDE RECORDS SUMMARY | 2024-07-15 20:38 | XMS_ITS | Continuity of Care Document ---
Author Organization [facility] Address [address] [place] [address] [address] [place] [address] Phone Care Team Providers Care Fx Artist Name Role Phone Short PT, Kathleen Unavailable [...] Diagnoses Date Provider Providers Copied on Encounter [facility], [id number], tel:[phone] Matthews No Information Mar-1 6202 2 Short Kathleen. . Referring Provider: Shukri Shannon [address], [place], [address]. tel:[phone] [facility] [address], [id number], tel:[phone] Pete No Information Mar-0 8202 2 Anusha Grimes. [address] [facility], [address], [place], [facility], [place]. tel:[phone] Referring Provider: Shukri Shannon [address], [place], [address]. tel:[phone] [facility] [address] [place] [address], [place], [place], [id number], tel:[phone] Pete No Information Mar-0 4-202 2 [place]. . Referring Provider: Shukri Shannon [address], [place], [address]. tel:[phone] [facility] [place] [address], [place], [place], [id number], tel:[phone] Matthews No Information May-0 2 Schranck Cornelio. [address] [place] [address], [address], [place], [place], [facility], . tel: [phone] Referring Provider: Shukri Shannon, Boris [address] A, [place], [address]. tel:[phone] [facility] [facility], [place], [place], [id number], [place] tel:[phone] Matthews No Information 2 [place]. . Referring Provider: [address], [place], [address]. tel:[phone] [facility], [address] [facility], [place], [place], [id number], tel:[phone] Matthews No Information 2 Anusha Grimes. [address] [place] [address], [address], [place], [place], [facility], . tel: [phone] Referring Provider: [address], [place], [address]. tel:[phone] [facility] [facility], [place], [place], [id number], [place] tel:[phone] Matthews No Information 2 Garrels Itzel. . Referring Provider: [address], [place], [address]. tel: [facility], [place], [place], [id number], [place] tel:[phone] Pete No Information 2 [place]. . Referring Provider: [address], [place], [address]. tel: [facility], [place], [place], [id number], tel:[phone] [place] No Information Sep-2 0-201 6 David [place] , [place], . [facility] [place] [address], [place], [place], [id number], tel:[phone] [place] No Information Sep-0 8-201 6 David Turner , [place], [place]. [facility] [place] [address], [place], [place], [id number], tel:[phone] [place] No Information Sep-0 6-201 6 David Turner , [place], . [facility], [address] [place] [address], [place], [place], [id number], tel:[phone] [place] Other spondylosis with myelopathy, lumbar regionLumbago with sciatica, left sideOther intervertebral disc degeneration, lumbar regionPain, unspecified Sep-0 1-201 6 David Turner , [place], . [facility], [address] [place] [address], [place], [place], [id number], tel:[phone] [place] No Information Aug-3 0-201 6 David Turner [place], [place], . Family History Family Member Type Diagnosis Age At Onset No Information Payers Payer name Insurance type Covered alliance party ID Authorbulla tirenu(s) Medicare [place] [id number] Aetna Senior Supplemental Insurance [id number] Social History Type Description Quantity Date Captured [...]
--- OUTSIDE RECORDS SUMMARY | 2024-07-15 20:38 | XMS_ITS | Encounter Summary ---
Author Organization [facility] Address [address] [place] [address] Care Team Providers Care Hand Glass Cutter Name Role Phone Mirian Wallace MD Primary Care Provider [phone] Encounter Details Date Type Department Care Team [...] on file Legal Sex Male 4:59 AM PLAN EXAMINER Gender Identity Not on file Sexual Orientation Not on file documented as of this encounter Plan of Treatment Upcoming Encounters Date Type Department Care Team (Late st Contact Info) Description 08/11/2024 3:15 PM CDT Office Visit [facility] HEART AND VASCULAR EP AT [address] [place] [address] Bill De Anda MD [facility] S [facility] 2014 [place] [address] 08/18/2024 11:30 AM CDT Office Visit [facility] Primary Care - [facility] [address] [place] [address] [place] [address] [phone] 09/15/2024 11:30 AM CDT Office Visit [facility] HEART AND VASCULAR - [place] [address] [address] [facility] 100 [place] [address] Flo Donahue MD [address] [facility] 2014 [place] [address] 09/21/2024 11:00 AM CDT Office Visit [facility] Neurology [facility] [address] [address] [facility] [address] [place] [address] Ashley Holloway, [facility] [address] [facility] [address] [place] [address] 10/05/2024 1:15 PM CDT Office Visit [facility] GASTROENTEROLOGY - [address] [facility] [address] [phone] Konrad Aburto, [facility] [address] [facility] 102 [place] [address] 11/26/2024 1:00 PM CDT Office Visit [facility] Pulmonology [facility] [address] [facility] [address] [place] [address] Silvio Avalos, [facility] [address] [place] [address] 12/27/2024 1:30 PM CDT Office Visit [facility] HEART AND VASCULAR EP AT [facility] [address] [facility] 2014 [place] [address] Guerrero Lind MD [address] [facility] [address] [place] [address] 09/22/2025 11:00 AM CDT Office Visit [facility] Neurology [address] [facility] [address] [place] [address] Carmine Castano MD [address] [facility] [address] [place] [address] documented as of this encounter Visit Diagnoses Diagnosis Urticaria, unspecified- Primary documented in this encounter Additional Health Concerns Infection Onset Date Last Indicated Resolved Time C Diff Comment:10/26/15 08/08/2017-outside 60 days from last positive culture obtianed.resolved. 10/27/2015 10/27/2015 06/0 03/2017 3:50 PM CDT R/O COVID-19 12/10/2019 12/10/2019 12/13/2019 1:16 AM CDT COVID-19 12/11/2019 12/11/2019 01/10/2020 1:16 AM PLAN EXAMINER R/O C. diff 08/04/2021 08/03/2021 08/04/2021 2:45 PM CDT R/O Respiratory 05/13/2022 05/13/2022 05/14/2022 1 2:32 AM PLAN EXAMINER R/O GI Pathogen 05/13/2022 05/13/2022 05/14/2022 1 2:32 AM PLAN EXAMINER R/O C. diff 12/09/2022 12/09/2022 12/10/2022 1:06 PM CDT R/O C. diff 01/23/2024 01/22/2024 01/23/2024 5:28 PM PLAN EXAMINER documented as of this encounter Care Teams Hand Glass Cutter Relationship Specialty [place] [address] [facility] 100 [place] [address] PCP - General 05/07/12 documented as of this encounter
--- OUTSIDE RECORDS SUMMARY | 2024-07-15 20:38 | XMS_ITS | Encounter Summary ---
Author Organization [facility] Address [address] [place] [address] Care Team Providers Care Vegetable Farmworker Name Role Phone Mirian Wallace MD Primary Care Provider [phone] Encounter Details Date Type Department Care Team (Late st Contact Info) Description 12/16/2022 Abstract [facility] Neurosurgery - [facility] [address] [facility] [address] [place] [address] Aman Justice MD [address] [facility] [address] [place] [address] Social History Tobacco Use Types [...] on file Legal Sex Male 4:59 AM FREELANCE RECRUITER Gender Identity Not on file Sexual Orientation Not on file documented as of this encounter Plan of Treatment Upcoming Encounters Date Type Department Care Team (Late st Contact Info) Description 08/11/2024 3:15 PM CDT Office Visit [facility] HEART AND VASCULAR EP AT [facility] [address] [facility] [address] [place] [phone] Bill De Anda MD [address] [facility] 2014 [place] [address] 08/18/2024 11:30 AM CDT Office Visit [facility] Primary Care - [facility] [address] [address] [place] [address] [address] 09/15/2024 11:30 AM CDT Office Visit [facility] HEART AND VASCULAR [place] [address] [address] Flo Donahue MD [address] [facility] 2014 [place] [address] 09/21/2024 11:00 AM CDT Office Visit [facility] Neurology [address] [facility] [address] [place] [address] Ashley Holloway, NETWORK CABLE INSTALLER [address] [facility] [address] [place] [address] 10/05/2024 1:15 PM CDT Office Visit [facility] GASTROENTEROLOGY - [address] [facility] 102 [address] [facility] 102 [place] [address] Konrad Aburto, [facility] [address] [facility] 102 [place] [address] 11/26/2024 1:00 PM CDT Office Visit [facility] Pulmonology [facility] [address] [facility] [address] [place] [address] Silvio Avalos, [facility] [address] [place] [address] 12/27/2024 1:30 PM CDT Office Visit [facility] HEART AND VASCULAR EP AT [facility] [address] [facility] [address] [place] [address] Guerrero Lind MD [address] [facility] [address] [place] [address] 09/22/2025 11:00 AM CDT Office Visit [facility] Neurology [address] [facility] [address] [place] [address] Carmine Castano MD [address] [facility] [address] [place] [address] documented as of this encounter Visit Diagnoses Not on filedocumented in this encounter Additional Health Concerns Infection Onset Date Last Indicated Resolved Time R/O C. diff 01/23/2024 01/22/2024 01/23/2024 5:28 PM FREELANCE RECRUITER Assessment Noted Time PHQ-9 Depression Total Score: 1 01/12/20 22 12:56 PM CDT documented as of this encounter Care Teams Vegetable Farmworker Relationship Specialty [place] [address] [facility] 100 [place] [address] PCP - General 05/07/12 documented as of this encounter
--- OUTSIDE RECORDS SUMMARY | 2024-07-15 20:38 | XMS_ITS | Encounter Summary ---
Author Organization [facility] Address [address] [place] [address] Care Team Providers Care Machine Pack Assembler Name Role Phone Mirian Wallace MD Primary Care Provider [phone] Encounter Details Date Type Department Care Team (Late st Contact Info) Description 07/14/2024 Abstract [facility] Primary Care - [facility] [address] [address] [place] [address] [address] Social History Tobacco Use Types [...] on file Legal Sex Male 4:59 AM STARTING SHEET TANK OPERATOR Gender Identity Not on file Sexual Orientation Not on file documented as of this encounter Plan of Treatment Upcoming Encounters Date Type Department Care Team (Late st Contact Info) Description 08/11/2024 3:15 PM CDT Office Visit [facility] HEART AND VASCULAR EP AT [facility] [address] [facility] [address] [place] [id number] Bill De Anda MD [address] [facility] [address] [place] [address] 08/18/2024 11:30 AM CDT Office Visit [facility] Primary Care - [facility] [id number] [place] [address] [place] [address] [address] 09/15/2024 11:30 AM CDT Office Visit [facility] HEART AND VASCULAR [place] [id number] [place] [address] Flo Donahue MD [address] [facility] [address] [place] [phone] 09/21/2024 11:00 AM CDT Office Visit [facility] Neurology [id number] [facility] [address] [place] [phone] Ashley Holloway, [facility] [address] [facility] [address] [place] [address] 10/05/2024 1:15 PM CDT Office Visit [facility] GASTROENTEROLOGY - [address] [facility] [address] [address] [facility] [address] [place] [phone] Konrad Aburto, [facility] [address] [facility] [address] [place] [address] 11/26/2024 1:00 PM CDT Office Visit [facility] Pulmonology [facility] [address] [facility] [address] [place] [address] Silvio Avalos, [facility] [address] [facility] [place] [address] 12/27/2024 1:30 PM CDT Office Visit [facility] HEART AND VASCULAR EP AT [facility] [address] [facility] [address] [place] [address] Guerrero Lind MD [address] [facility] [address] [place] [address] 09/22/2025 11:00 AM CDT Office Visit [facility] Neurology [address] [facility] [address] [place] [address] Carmine Castano MD [address] [facility] [address] [place] [address] documented as of this encounter Visit Diagnoses Not on filedocumented in this encounter Care Teams Machine Pack Assembler Relationship Specialty [place] [address] [facility] [address] [place] [address] PCP - General 05/07/12 documented as of this encounter
--- OUTSIDE RECORDS SUMMARY | 2024-07-15 20:38 | XMS_ITS | Clinical Summary ---
Author Organization [facility] Address [address] [address] Care Team Providers Care Brake Reliner Name Role Phone Mirian Wallace MD Primary Care Provider [phone] Allergies Active Allergy Reactions Criticality Noted Date [...] 024 Active fluticasone propionate (FLONASE) 50 mcg/spray Parker, Suspension nasal inhaler Administer 1 Parker in each nostril 2 times daily. 16 Gram 5 024 Active felodipine (PLENDIL) 10 mg Extended Release 24 hour tabletIndication s:Paroxysmal atrial fibrillation (CMS/HCC),Benign hypertension,Cor onary artery disease involving muscogee coronary artery of muscogee heart without angina pectoris TAKE 1 TABLET(10 [...] atrial fibrillation (CMS/HCC),Candelario ry artery disease involving muscogee coronary artery of muscogee heart without angina pectoris Take 1 Tablet (20 mg) by mouth daily with supper. 90 Tablet 3 025 Active atorvastatin (LIPITOR) 20 mg tabletIndication s:Mixed hyperlipidemia TAKE 1 TABLET(20 MG) BY MOUTH DAILY 90 Tablet 1 025 Active lisinopriL (PRINIVIL) 40 mg tabletIndication s:Benign hypertension,Cor onary artery disease involving muscogee coronary artery of muscogee heart without angina pectoris TAKE 1 TABLET(40 [...] migh t be different from the original. Coagulator Dr.Joshua Godfrey aHrris Last AWV 11/09/15 RH Problem Noted Date [...] 05/10/2020 Assessment & Plan (05/10/2020 12:23 PM NUCLEAR TECHNOLOGIST): Worsening. He underwent a recent MRI - There is significant foramen stenosis. He has been having injections with some relief. Enteritis 02/21/2020 Moderate alcohol use disorder 01/07/2018 PAD (peripheral artery disease) 06/12/2017 Assessment & Plan (05/10/2020 12:19 PM NUCLEAR TECHNOLOGIST): Stable. He status post procedures, peripheral stents in both legs. Continue secondary prevention. . 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 We discussed and reviewed the following issues Glucose control He has been following his home glucoses and weight. His last A1C is: Lab Results Component Value Date/Time HGBA1C 7.2 (H) 12/18/2016 04:36 AM GCRA8SDAV 5.4 09/24/2019 12:46 PM Wt Readings from [...] blockage of another artery (Dr. Mcmahon) at [facility]. Type 2 diabetes mellitus without complication 12/19/19 12 02/06/2018 Bruising 02/06/2018 Encounters Date Type Department Care Team Description 07/14/2024 11:30 AM CDT Video Visit [facility] [place]ry [place] [address] [place] [facility] [place] [address] Rashawn Olvera, Recurrent major depressive disorder, in full remission; Generalized anxiety disorder 07/14/2024 Abstract [facility] [address] [facility] [address] [place] [phone] Mirian Wallace MD 07/13/2024 External Device Data STL ABSTRACTION Provider, Abstract 07/13/2024 External Device Data STL ABSTRACTION Provider, Abstract 07/13/2024 Abstract [facility] Gastroenterology [facility] [address] [facility] [address] [place] [phone] Al Cooper MD 07/13/[address] [facility] - [facility] [id number] [address] [facility] [address] [place] [phone] Flo Donahue MD Benign hypertension 07/10/2024 Refill [facility] Psychiatry [facility] [address] [facility] [address] [place] [address] Rashawn Olvera DO Recurrent major depressive disorder, in full remission 07/08/[address] [facility] GASTROENTEROLOGY - [address] [place] [address] [facility] [address] [place] [phone] Nhan Ortiz DO PA for Rezdiffra 07/06/2024 1:10 PM CDT Office Visit [facility] - [address] [place] [address] [facility] [address] [place] [phone] Nhan Ortiz DO Elevated LFTs (Primary Dx); Obesity (BMI 35.0-39.9 without comorbidity); Moderate alcohol use disorder (CMS/HCC); Metabolic dysfunction-associa farshad steatotic liver disease (MASLD) 06/25/2024 Refill [facility] [address] [facility] [address] [place] [address] Mirian Wallace MD 06/23/2024 2:30 PM CDT Office Visit [facility] EP AT [facility] [address] [facility] [address] [place] [address] Bill De Anda MD Other persistent atrial fibrillation (CMS/HCC) (Primary Dx); Typical atrial flutter (CMS/HCC); Benign hypertension 06/08/2024 External Device Data STL ABSTRACTION Provider, Abstract 06/07/[address] [facility] - [address] [phone] Flo Donahue MD Mixed hyperlipidemia; Benign hypertension; Coronary artery disease involving muscogee coronary artery of muscogee heart without angina pectoris 05/28/2024 Abstract [facility] Primary Care - [address] [phone] Mirian Wallace MD 05/18/2024 Abstract [facility] Primary Care [address] [phone] Mirian Wallace MD 05/14/2024 10:30 AM NUCLEAR TECHNOLOGIST Office Visit [facility] Primary Care Same Day [address] [phone] Valerie Tapia FNP Liver fibrosis (Primary Dx); Generalized body aches; Other fatigue; Abnormal urine color 05/11/2024 External Device Data STL ABSTRACTION Provider, Abstract 05/11/2024 External Device Data STL ABSTRACTION Provider, Abstract 05/05/2024 Orders Only [facility] - [address] [phone] Mirian Wallace MD 05/05/[address] [phone] Mirian Wallace MD 04/28/[address] [facility] - [address] [phone] Flo Donahue MD 04/23/2024 Orders Only [facility] Heart and Vascular At [place] [address] [facility] [address] [place] [phone] Renetta Tyler RN Paroxysmal atrial fibrillation (CMS/HCC); Coronary artery disease involving muscogee coronary artery of muscogee heart without angina pectoris from Last 3 Months Immunizations Immunization Administration Dates Next Due (ADACEL/BOOSTRIX)(10 YR UP) TDAP VACCINE, 0.5ML, IM 11/08/2017 (AREXVY)(60 YR UP) RSV, GURJIT MBINANT, PROTEIN SUBUNIT RSVPREF, ADJUVANT RECONSTITUTED, 0.5 ML, PF 01/24/2023 (PFIZER)(12 YR UP) COVID-19 VACCINE - EMERGENCY USE AUTHORIZATION, MRNA, [id number](PF) 30 MCG/0.3 ML IM SUSP 12/07/2020 (PREVNAR [...] Zoie Heart Attack Sister 3 Jayshree Velez Yonytulio Stroke Sister 3 aJyshree Lino Anxiety Sister 4 MJ Anxiety Sister 5 [...] on file Legal Sex Male 4:59 AM NUCLEAR TECHNOLOGIST Gender Identity Not on file Sexual Orientation Not on file Last Filed Vital Signs Vital Sign Reading Time Taken Comments Blood Pressure 155/79 07/06/2024 12:32 PM CDT Pulse 72 07/06/2024 12:32 PM CDT Temperature 36.3 C (97.4 F) 07/06/2024 12:32 PM CDT Respiratory Rate 18 05/14/2024 10:09 AM NUCLEAR TECHNOLOGIST Oxygen Saturation 90% 07/06/2024 12:32 PM CDT Inhaled Oxygen Concentration - - Weight 135.6 kg (299 lb) 07/06/2024 12:32 PM CDT Height 190.5 cm (6' 3 ) 07/06/2024 12:32 PM CDT Body Mass Index 37.37 07/06/2024 12:32 PM CDT Plan of Treatment Upcoming Encounters Date Type Department Care Team (Late st Contact Info) Description 08/11/2024 3:15 PM CDT Office Visit [facility] EP AT [facility] [address] [facility] [address] [place] [phone] Bill De Anda MD [address] [facility] [address] [place] [phone] 08/18/2024 11:30 AM CDT Office Visit [facility] Primary Care - [facility] [address] [phone] [place] [address] [address] 09/15/2024 11:30 AM CDT Office Visit [facility] - [place] [address] [address] [facility] [address] [place] [address] Flo Donahue MD [address] [facility] [address] [place] [address] 09/21/2024 11:00 AM CDT Office Visit [facility] Neurology [address] [facility] [address] [place] [address] Ashley Holloway, DARLENE [address] [facility] [address] [place] [address] 10/05/2024 1:15 PM CDT Office Visit [facility] - [address] [facility] [address] [facility] [address] [place] [phone] Konrad Aburto, JAMI [address] [facility] [address] [place] [address] 11/26/2024 1:00 PM CDT Office Visit [facility] Pulmonology [facility] [address] [facility] [address] [place] [address] Silvio Avalos, [facility] [address] [place] [phone] 12/27/2024 1:30 PM CDT Office Visit [facility] EP AT [facility] [address] [facility] [address] [place] [address] Guerrero Lind MD [address] [facility] [address] [place] [address] 09/22/2025 11:00 AM CDT Office Visit [facility] Neurology [address] [facility] [address] [place] [address] Carmine Castano MD [address] [facility] [address] [place] [address] Health Maintenance Due Date Last [...] season) 2023 12/07/2020, 05/30/2020, 04/19/2020 Medicare [place] ([place]) Preventative Visit/Annual Wellness Visit 03/10/2024 08/15/2023, 01/15/2022, [...] history exists Medical Devices Implanted Type Area Chief Mate Device Identifier Shelf Expiration Date Model / Serial / Lot Vitoss Foam Pack Ba2x 5ml - [id number] Implanted:Qty : 1 on 04/12/2022 by Aman Justice MD at [facility] Biological N/A: Spine Cervical Anterior NEELAM- SPINE [id number] 04/06/202321015439-2122 / / [id number] Tritanium C Anterior Cervical Cage 5 Mm X 12mm X 14mm X 6 Implanted:Qty : 1 on 04/12/2022 by Aman Justice MD at [facility] Cage N/A: Spine Cervical Anterior [employer] [id number] 01/22/2027 [id number] / / [id number] Description:ID : [id number] 21P. All [place] cervical hardware was processed on requisition, [id number]. Tritanium Anterior Cervical Cage Implanted:Qty : 1 on 04/12/2022 by Aman Justice MD at [facility] Cage N/A: Spine Cervical Anterior [employer]AM- SPINE 02/17/2023 [id number] / / [id number] Cement Bone Biomet R 1x40 [id number] - [id number] Implanted:Qty : 2 on 10/01/2021 by Ke Bhatt MD at [facility] Right: Knee [employer] 12/08/2023 [id number] / / [id number] Dev Cardiva Vascade Mvp Xl Vvcs 10-12fr 800-1012xl - [id number] Implanted:Qty : 1 on 03/08/2024 by Bill De Anda MD at [facility] Closure Device Right: Groin [employer] [id number] 12/03/2025 800-1012XL / / [id number] Dev Vns Vasc Clsr Vascade Mvp St 318-306k-08g - [id number] Implanted:Qty : 1 on 03/08/2024 by Bill De Anda MD at [facility] Closure Device Left: Groin [employer] [id number] 07/20/2025 800-612C-1 0U / / [id number] Dev Vns Vasc Clsr Vascade Mvp 782-254w-68l - [id number] Implanted:Qty : 1 on 03/08/2024 by Bill De Anda MD at [facility] Closure Device Left: Groin [employer] [id number] 07/20/2025 800-612C-1 0U / / [id number] Hemostatic Surgifoam Sz100 1973 - [id number] Implanted:Qty : 1 on 06/23/2020 by Aman Justice MD at [facility] Hemostatic Right: Spine Lumbar J&J- [employer] 02/03/20241973 / / [id number] Hemostatic Surgifoam Sz100 1973 - [id number] Implanted:Qty : 1 on 04/12/2022 by Aman Justice MD at [facility] Hemostatic N/A: Spine Cervical Anterior J&J- [employer] [id number] 12/03/2025 1974 / / [id number] Bearing Vanguard Ant Stab 10x75 322341 - [id number] Implanted:Qty : 1 on 10/01/2021 by Ke Bhatt MD at [facility] Knee Right: Knee [employer] [id number] 06/28/2023 [id number] / / [id number] Description:CAP BORREGO Comp Fem Vanguard Cr Interlock Rt 75mm 873807 - [id number] Implanted:Qty : 1 on 10/01/2021 by Ke Bhatt MD at [facility] Knee Right: Knee [employer] [id number] 01/02/2031 [id number] / / [id number] Description:FRANDY BORREGO Patella 3peg Series A [id number] - [id number] Implanted:Qty : 1 on 10/01/2021 by Ke Bhatt MD at [facility] Knee Right: Knee [employer] 04/05/2026 [id number] / / [id number] Description:CAP BORREGO Comp Tib Cocr Finned 75mm [id number] - [id number] Implanted:Qty : 1 on 10/01/2021 by Ke Bhatt MD at [facility] Knee Right: Knee [employer] 07/28/2031 [id number] / / [id number] Description:FRANDY BORREGO 40mm 2 Level Plate Implanted:Qty : 1 on 04/12/2022 by Aman Justice MD at [facility] Plate N/A: Spine Cervical Anterior NEELAM- SPINE [id number] / STERILIZED FEB 3 23 / LOAD # 8 1 12mmx4.0 Self Tapping Variable Screws Implanted:Qty : 6 on 04/12/2022 by Aman Justice MD at [facility] Screw N/A: Spine Cervical Anterior NEELAM- SPINE [id number] / STERILIZED FEB 3 23 / LOAD #1 8 Stent Vasc Supera 6fr [id number] P6-12/17/2016 Implanted:12/2016 by Flo Donahue MD (Quantity not on file) Stent [facility] [id number] 01/07/2017 S-65-100-1 20-P6 / / [id number] Description:Prox politeal / right SFA Stent Vasc Supera 6fr C-[id number]- P6-12/17/2016 Implanted:12/2016 by Flo Donahue MD (Quantity not on file) [facility]ent [facility] [id number] 11/07/2017 S-65-100-1 20-P6 / / [id number] Description:right SFA Right Big Toe Titanium Procedures Procedure Name Priority Date/Time Associated Diagnosis Comments SD ECG ROUTINE ECG W/LEAST 12 LDS W/I&R Routine 06/23/2024 3:15 PM CDT Other persistent atrial fibrillation (CMS/HCC) POC URINALYSIS DIPSTICK AUTOMATED Routine 05/14/2024 10:42 AM NUCLEAR TECHNOLOGIST Abnormal urine color DIABETES EYE EXAM Routine 04/29/2024 9:00 AM NUCLEAR TECHNOLOGIST COLONOSCOPY REPORT 03/31/2024 11 :[address] ABDOMEN PELVIS WO CONTRAST Stat 12/11/2022 11:48 AM CDT Chronic diarrhea Loose bowel movement from Last 3 Months or Most Recently Relevant to Health Maintenance Results * SD ECG ROUTINE ECG W/LEAST 12 LDS W/I&R (06/23/2024 3:15 PM CDT) [facility] HEART AND VASCULAR - 06/23/2024 3:15 PM CDT Bill De Anda MD 06/23/2024 3:16 PM Sinus rhythm with first-degree AV block at 68 bpm. SD duration 265 ms. Procedure Note Bill De Anda MD - 06/23/2024 3:15 PM CDT Sinus rhythm with first-degree AV block at 68 bpm. SD duration 265 ms. us Bill De Anda MD ECG ORDERABLES Final Result [facility] CLIA #[id number] [address] [facility] [address] [place] [address] * POC URINALYSIS DIPSTICK AUTOMATED (05/14/2024 10:42 AM NUCLEAR TECHNOLOGIST) COLOR UA POC Yellow Pale to Dark Yellow [facility] CLARITY UA POC Clear Clear, Other [facility] GLUCOSE UA POC Negative Negative, Normal [facility] BILIRUBIN UA POC Negative Negative [facility] KETONES UA POC Negative Negative [facility] SPECIFIC GRAVITY UA POC 1.015 1.000 - 1.030 [facility] BLOOD UA POC Negative Negative [facility] UA POC 7.0 5.0 - 8.0 [facility] PROTEIN UA POC Negative Negative [facility] UROBILINOGEN UA POC 0.2 <2.0 mg/dL [facility] NITRITE UA POC Negative Negative [facility] LEUKOCYTE ESTERASE UA POC Negative Negative [facility] KIT LOT NUMBER POC [phone] [facility] KIT EXP DATE POC 10/07/2024 [facility] Urine 05/14/2024 10:4 2 AM NUCLEAR TECHNOLOGIST Valerie Maromina CUT OFF SAW OPERATOR PIPE BLANKS POINT OF CARE TESTING Final Re sult P [id number]|2024-07-20 15:23:00|2024-07-20 15:23:00|P.PNAN_ITS|WAGNERF|Health Information Management|[id number]|"Anes - Initial Pre Proc Eval Procedure: Operation Date: 07/20/24 15:00 Proposed Procedures p Endoscopic Retro Cholangiopancreatogram - Levon Ruiz MD Date/Time: 07/20/24 15:23 Surgeon: Frances Gtz DO Pre Op Diagnosis: elevated liver enzymes, acute kidney injury Patient Data Age: 73 Gender: M Height: 1.91 m Weight: 133.8 kg Last Vital Signs Temp 36.2 C L 07/20/24 14:29 Pulse 67 07/20/24 14:29 Resp 16 07/20/24 14:29 BP 149/68 H 07/20/24 14:29 Pulse Ox 97 07/20/24 14:29 O2 Del Method Room Air 07/20/24 14:29 Allergies Allergy/AdvReac Type Severity Reaction Status Date / Time citalopram Allergy Unknown Hives Verified 07/15/24 20:36 hydralazine Allergy Unknown Hives Verified 07/15/24 20:36 Penicillins Allergy Unknown hives Verified 07/19/24 08:15 Home Medications Medication Instructions Recorded Confirmed Type amlodipine 5 mg tablet 5 mg PO DAILY 10/27/19 07/16/24 History bupropion HCl 300 mg 24 hr tablet, 300 mg PO QAM 10/27/19 07/16/24 History extended release clonazepam 1 mg tablet 1 mg PO HS PRN anxiety 10/27/19 07/16/24 History meloxicam 15 mg tablet 15 mg PO DAILY 10/27/19 07/16/24 History metoprolol tartrate 25 mg tablet 25 mg PO DAILY 10/27/19 07/16/24 History omeprazole 20 mg capsule,delayed 40 mg PO DAILY 10/27/19 07/16/24 History release buspirone 15 mg tablet 15 mg PO BID 07/15/24 07/16/24 History evolocumab 140 mg/mL subcutaneous 140 mg subcut .every other week 07/15/24 07/16/24 History pen injector (Ramandeep Springer) furosemide 20 mg tablet 20 mg PO DAILY 07/15/24 07/16/24 History pregabalin 200 mg capsule 200 mg PO Q12H 07/15/24 07/16/24 History semaglutide 0.25 mg or 0.5 mg (2 0.25 mg subcut WEEKLY 07/15/24 07/16/24 History mg/3 mL) subcutaneous pen injector (Ozshavonne) sildenafil (pulm.hypertension) 20 20 mg PO PRN PRN sexual activity 07/15/24 07/16/24 History mg tablet tadalafil 5 mg tablet 5 mg PO PRN PRN sexual activity 07/15/24 07/16/24 History tamsulosin 0.4 mg capsule 0.4 mg PO DAILY 07/15/24 07/16/24 History atorvastatin 20 mg tablet 20 mg PO DAILY 07/16/24 07/16/24 History carvedilol 3.125 mg tablet 3.125 mg PO BID 07/16/24 07/16/24 History duloxetine 60 mg capsule,delayed 60 mg PO DAILY 07/16/24 07/16/24 History release felodipine 10 mg tablet,extended 10 mg PO DAILY 07/16/24 07/16/24 History release 24 hr fluticasone propionate 50 1 spray intranasal Q12H 07/16/24 07/16/24 History mcg/actuation nasal spray,suspension lisinopril 40 mg tablet 40 mg PO DAILY 07/16/24 07/16/24 History potassium chloride 20 mEq 20 meq PO DAILY 07/16/24 07/16/24 History tablet,extended release (K-Tab) rivaroxaban 20 mg tablet 20 mg PO DAILY 07/16/24 07/16/24 History tizanidine 4 mg capsule 4 mg PO Q6H PRN muscle spasticity 07/16/24 07/16/24 History Laboratory Tests 07/20/24 04:18 WBC 4.7 K/mm3 (4.5-10.0) RBC 3.65 L M/mm3 (4.6-6.20) Hgb 11.1 L g/dL (14.0-18.0) Hct 33.0 L % (42.0-52.0) MCV 90.4 fl (80-100) MCH 30.4 pg (26-34) MCHC 33.6 g/dl (32-36) RDW 15.4 H % (11.5-14.5) Plt Count 166 k/mm3 (150-375) MPV 10.7 H fl (7.4-10.4) Sodium 134 L mmol/L (137-145) Potassium 3.1 L mmol/L (3.4-5.0) Chloride 102 mmol/L (98-107) Carbon Dioxide 24 mmol/L (22-30) Anion Gap 8 mmol/L (4-12) BUN 8 L mg/dL (9-20) Creatinine 0.85 mg/dL (0.7-1.3) Estim Creat Clear Calc 98 ml/min Estimated GFR > 60 (59 - ) Glucose 119 H mg/dL (65-110) Calcium 8.4 mg/dL (8.4-10.2) Total Bilirubin 2.7 H mg/dL (0.2-1.3) AST 66 H U/L (17-59) ALT 135 H U/L (6-50) Alkaline Phosphatase 157 H U/L (38-126) Total Protein 6.0 L g/dL (6.3-8.2) Albumin 3.3 L g/dL (3.5-5.1) Patient hx anesthesia problems: none Family hx anesthesia problems: none Results Review: All pre-operative results and documents have been reviewed as part of the pre- operative evaluation. 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 Sepsis Gram-positive bacteremia Cholelithiasis SIRS (systemic inflammatory response syndrome) HONORIO (obstructive sleep apnea) Balanitis Gout Hyperlipidemia HTN (hypertension) Surgical History Surgical History H/O angioplasty Family History Family History Sibling Diabetes mellitus Family history of mental disorder, Onset Age: 63 Family history of cardiovascular disease, Onset Age: 63 Acute myocardial infarction Family history of malignant neoplasm Mother Family history of mental disorder, Onset Age: 56 Other Family history of seizure disorder Social History Social History Smoking status: Former smoker Alcohol intake: current Drinks per week: 30 Substance use type: does not use Do You Feel Safe in your Home?: Yes Lack of Transportation: No Lack of Food: Never True Current Housing: I Have Housing Concerned About Future Housing: No Difficulty Paying Gas/Electric Bills: No Difficulty Paying for Meds: No Currently Unemployed: No Education: Associate Degree Difficulty w/ Childcare or Family Care: No Spiritual care concerns: No Anes - Eval Final PreProcedure Day of Procedure 07/20/24 15:23 Patient weight: obese Heart: regular rate and rhythm Lungs: clear to auscultation Airway: Mallampati scale Neurological: alert and oriented Last oral intake: >/= 8 hours ASA classification: III Emergent: no Anesthetic plan: proceed Anesthesia type and monitoring: general GIVS and standard monitoring Results Review: All pre-operative results and documents have been reviewed as part of the pre- operative evaluation. Informed Consent: The patient's anesthetic plan and its attendant risks and benefits were discussed with the patient/family/POA. Questions were solicited and answers provided to the satisfaction of the patient/family/POA. "
--- OUTSIDE RECORDS SUMMARY | 2024-07-15 20:38 | XMS_ITS | Encounter Summary ---
Author Organization [facility] Address [address] [place] [address] Care Team Providers Care Switchboard Installer Name Role Phone Mirian Wallace MD Primary Care Provider [phone] Encounter Details Date Type Department Care Team (Late st Contact Info) Description 03/24/1998 Outpatient Historical [facility] Zane Renee MD [facility] [place] [id number] [place], Authorized P NO ADDRESS ON FILE Sprain of lumbar region (Primary Dx) Social History Tobacco Use Types Packs/Day Years Used Date Smoking Tobacco: Never Assessed Sex and Gender Information Value Date Recorded Sex Assigned at Not on file Legal Sex Male 4:59 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 [address] [place] [address] Bill De Anda MD [facility] [address] [facility] [address] [address] 08/18/2024 11:30 AM CDT Office Visit [facility] Primary Care - [address] [place] [address] [place] [address] [facility] [address] [place] [address] 09/15/2024 11:30 AM CDT Office Visit [facility] HEART AND VASCULAR - [place] [address] [facility] [address] [place] [phone] Flo Donahue MD [address] [facility] [address] [place] [address] 09/21/2024 11:00 AM CDT Office Visit [facility] Neurology [facility] [address] [facility] [address] [address] Ashley Holloway, [facility] [address] [facility] [address] [address] 10/05/2024 1:15 PM CDT Office Visit [facility] GASTROENTEROLOGY - [address] [facility] 102 [address] [facility] 102 [place] [address] Konrad Aburto, [facility] [address] [facility] 102 [place] [address] 11/26/2024 1:00 PM CDT Office Visit [facility] Pulmonology [facility] [address] [facility] [address] [place] [address] Silvio Avalos, [facility] [address] [facility] [address] 12/27/2024 1:30 PM CDT Office Visit [facility] HEART AND VASCULAR EP AT [facility] [address] [facility] 2014 [place] [address] Guerrero Lind MD [address] [facility] [address] 09/22/2025 11:00 AM CDT Office Visit [facility] Neurology [address] [facility] [address] [address] Carmine Castano MD [address] [facility] [address] [address] documented as of this encounter Visit Diagnoses Diagnosis Sprain of lumbar region- Primary documented in this encounter Additional Health Concerns Infection Onset Date Last Indicated Resolved Time C Diff Comment:10/26/15 08/08/2017-outside 60 days from last positive culture obtianed.resolved. 10/27/2015 10/27/201503/2017 3:50 PM CDT R/O COVID-19 12/10/2019 12/10/2019 12/13/2019 1:16 AM CDT COVID-19 12/11/2019 12/11/2019 01/10/2020 1:16 AM FIELD PARTY MANAGER R/O C. diff 08/04/2021 08/03/2021 08/04/2021 2:45 PM CDT R/O Respiratory 05/13/2022 05/13/2022 05/14/2022 1 2:32 AM FIELD PARTY MANAGER R/O GI Pathogen 05/13/2022 05/13/2022 05/14/2022 1 2:32 AM FIELD PARTY MANAGER R/O C. diff 12/09/2022 12/09/2022 12/10/2022 1:06 PM CDT R/O C. diff 01/23/2024 01/22/2024 01/23/2024 5:28 PM FIELD PARTY MANAGER documented as of this encounter Care Teams Switchboard Installer Relationship Specialty [place] [address] [facility] 100 [place] [address] PCP - General 05/07/12 documented as of this encounter
--- OUTSIDE RECORDS SUMMARY | 2024-07-15 20:38 | XMS_ITS | Encounter Summary ---
Author Organization [facility] Address [address] [place] [address] Care Team Providers Care Staff Development Manager Name Role Phone Mirian Wallace MD Primary Care Provider [phone] Reason for Visit * Reason Onset Date Comments Sheduling Procedure 12/18/2023 Encounter Details Date Type Department Care Team (Late st Contact Info) Description 12/18/2023 Telephone [facility] Heart and Vascular - [place] [phone] [place] [address] Bill De Anda MD [address] [place] [address] Sheduling Procedure Social History Tobacco [...] on file Legal Sex Male 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 Gender Identity Not on file Sexual Orientation [...] Description 08/11/2024 3:15 PM CDT Office Visit [facility] HEART AND VASCULAR EP AT [address] [place] [phone] Bill De Anda MD [address] [place] [address] 2014 [place] [phone] 08/18/2024 11:30 AM CDT Office Visit [facility] Primary Care - [address] [address] Mirian Wallace MD [address] [place] [address] 09/15/2024 11:30 AM CDT Office Visit [facility] HEART AND VASCULAR - [address] [address] Flo Donahue MD [facility] S [facility] 2014 [place] [address] 09/21/2024 11:00 AM CDT Office Visit [facility] Neurology [address] [facility] [address] [place] [address] Ashley Holloway, [facility] [address] [facility] [address] [place] [address] 10/05/2024 1:15 PM CDT Office Visit [facility] GASTROENTEROLOGY - [address] [facility] 102 [address] [facility] 102 [place] [phone] Konrad Aburto, [facility] [address] [facility] 102 [place] [address] 11/26/2024 1:00 PM CDT Office Visit [facility] Pulmonology [facility] [address] [facility] [address] [place] [address] Silvio Avalos, [facility] [address] [place] [address] 12/27/2024 1:30 PM CDT Office Visit [facility] HEART AND VASCULAR EP AT [facility] [address] [facility] [address] [place] [address] Guerrero Lind MD [address] [facility] [address] [place] [address] 09/22/2025 11:00 AM CDT Office Visit [facility] Neurology [address] [facility] [address] [place] [address] Carmine Castano MD [address] [facility] [address] [place] [address] documented as of this encounter Visit Diagnoses Not on filedocumented in this encounter Additional Health Concerns Infection Onset Date Last Indicated Resolved Time R/O C. diff 01/23/2024 01/22/2024 01/23/2024 5:28 PM INSPECTOR ALUMINUM BOAT Assessment Noted Time PHQ-9 Depression Total Score: 2 08/08/19 24 3:47 PM CDT documented as of this encounter Care Teams Staff Development Manager Relationship Specialty [place] [address] [address] PCP - General 05/07/12 documented as of this encounter
--- OUTSIDE RECORDS SUMMARY | 2024-07-15 20:38 | XMS_ITS | Encounter Summary ---
Author Organization [facility] Address [address] [place] [address] Care Team Providers Care Clerk Carrier Name Role Phone Mirian Wallace MD Primary Care Provider [phone] Reason for Visit * Reason Comments Anxiety Follow Up * Eval and Treat (Routine) - Authorized Specialty Diagnoses / Procedures Referred By Lia cobian Referred To Contact Psychiatry Diagnoses Follow up Procedures VIDEO VISIT [facility] [address] [place] [address] Rashawn Olvera DO [address] [place] [address] [place] [address] Phone: tel: fax: Referral ID Status Reason Start Date Expiration Date V isits Requested Visits Authorized [id number] Authorized 07/09/2023 08/08/2024 60 60 Encounter Details Date Type Department Care Team (Late st Contact Info) Description 07/14/2024 11:30 AM CDT Video Visit [facility] Psychiatry 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 Tirado in [place]. Saw hypnotist once and tried CBT, cannot [...] 08/11/2024 3:15 PM CDT Office Visit [facility] HEART AND VASCULAR EP AT [place] [address] [facility] [address] [place] [address] Bill De Anda MD [address] [place] [address] [address] [place] [address] 08/18/2024 11:30 AM CDT Office Visit [facility] Primary Care - [facility] [address] [facility] 100 [place] [address] [place] [address] [facility] 100 [place] [address] 09/15/2024 11:30 AM CDT Office Visit [facility] HEART AND VASCULAR - [place] [address] [facility] 100 [place] [address] Flo Donahue MD [address] [address] 09/21/2024 11:00 AM CDT Office Visit [facility] Neurology [address] [facility] [address] [place] [address] Ashley Holloway, [facility] [address] [facility] [address] [place] [address] 10/05/2024 1:15 PM CDT Office Visit [facility] GASTROENTEROLOGY - [address] [facility] 102 [address] [facility] 102 [place] [address] Konrad Aburto, [facility] [address] [facility] 102 [place] [address] 11/26/2024 1:00 PM CDT Office Visit [facility] Pulmonology [facility] [address] [facility] [address] [place] [address] Silvio Avalos, [facility] 1603 [place] [address] 12/27/2024 1:30 PM CDT Office Visit [facility] HEART AND VASCULAR EP AT [facility] [address] [facility] [address] [place] [address] Guerrero Lind MD [address] [facility] [address] [place] [address] 09/22/2025 11:00 AM CDT Office Visit [facility] Neurology [address] [facility] [address] [place] [address] Carmine Castano MD [address] [facility] [address] [place] [address] documented as of this encounter Visit Diagnoses Diagnosis Recurrent major depressive disorder, in full remission Generalized anxiety disorder documented in this encounter Care Teams Clerk Carrier Relationship Specialty [place] [address] [facility] 100 [place] [address] PCP - General 05/07/12 documented as of this encounter
[2024-07-15 20:39] VITALS: BP 115/59; PULSE 97; RESP 20; TEMP 36.8; O2SAT 95
[2024-07-15 21:40] LABS: Basophils Percent Auto 0.1 % (0.2-1.2); Eosinophils Percent Auto 0.1 % (0-4.4); Hematocrit 40.7 % (42.0-52.0); Immature Granulocyte Absolute 0.09 K/mm3 (0.00-0.031); Immature Granulocyte Percent A 0.6 % (0-0.5); Lymphocytes Absolute Auto 0.46 K/mm3 (0.9-3.2); Lymphocytes Percent Auto 3.2 % (18.3-44.2); Mean Corpuscular HGB Conc 34.4 g/dl (32-36); Mean Corpuscular Hemoglobin 30.4 pg (26-34); Mean Corpuscular Volume 88.5 fl (80-100); Mean Platelet Volume 9.3 fl (7.4-10.4); Monocytes Absolute Auto 0.8 K/mm3 (0.1-0.6); Monocytes Percent Auto 5.6 % (2.6-8.5); Neutrophils Absolute Auto 13.2 K/mm3 (1.3-6.7); Neutrophils Percent Auto 90.4 % (45.5-73.1); Platelet Count Result 188 k/mm3 (150-375); Red Cell Distribution Width 14.7 % (11.5-14.5); White Blood Count 14.6 K/mm3 (4.5-10.0)
[2024-07-15 21:52] LABS: Alanine Aminotransferase 193 U/L (6-50); Albumin Level 4.4 g/dL (3.5-5.1); Alkaline Phosphatase 232 U/L (38-126); Anion Gap 10 mmol/L (4-12); Aspartate Amino Transferase 233 U/L (17-59); Blood Urea Nitrogen 16 mg/dL (9-20); Calcium 9.2 mg/dL (8.4-10.2); Carbon Dioxide 28 mmol/L (22-30); Chloride 92 mmol/L (98-107); Estimated CRCL calculation 50 ml/min; Estimated Glomerular Filt Rate 39; Glucose 112 mg/dL (65-110); Lipase 98 U/L (23-300); Potassium 3.9 mmol/L (3.4-5.0); Sodium 130 mmol/L (137-145)
--- OUTSIDE RECORDS SUMMARY | 2024-07-15 21:57 | XMS_ITS | Clinical Summary ---
Author Organization [facility] Address [address] [facility] [place] [address] Care Team Providers Care High [employer] Band Director Name Role Phone Mirian Wallace MD Primary Care Provider Allergies Active Allergy Reactions Criticality Noted Date [...] 024 Active fluticasone propionate (FLONASE) 50 mcg/spray [place], Suspension nasal inhaler Administer 1 [place] in each nostril 2 times daily. 16 Gram 5 024 Active felodipine (PLENDIL) 10 mg Extended Release 24 hour tabletIndication s:Paroxysmal atrial fibrillation (CMS/HCC),Benign hypertension,Cor onary artery disease involving qagan tayagungin coronary artery of qagan tayagungin heart without angina pectoris TAKE 1 TABLET(10 [...] atrial fibrillation (CMS/HCC),Candelario ry artery disease involving qagan tayagungin coronary artery of qagan tayagungin heart without angina pectoris Take 1 Tablet (20 mg) by mouth daily with supper. 90 Tablet 3 025 Active atorvastatin (LIPITOR) 20 mg tabletIndication s:Mixed hyperlipidemia TAKE 1 TABLET(20 MG) BY MOUTH DAILY 90 Tablet 1 025 Active lisinopriL (PRINIVIL) 40 mg tabletIndication s:Benign hypertension,Cor onary artery disease involving qagan tayagungin coronary artery of qagan tayagungin heart without angina pectoris TAKE 1 TABLET(40 [...] migh t be different from the original. Electrophysiology Technologist Dr.Joshua Godfrey Harris Last AWV 11/09/15 RH Problem Noted Date [...] 05/10/2020 Assessment & Plan (05/10/2020 12:23 PM ROUTE CDL DRIVER): Worsening. He underwent a recent MRI - There is significant foramen stenosis. He has been having injections with some relief. Enteritis 02/21/2020 Moderate alcohol use disorder 01/07/2018 PAD (peripheral artery disease) 06/12/2017 Assessment & Plan (05/10/2020 12:19 PM ROUTE CDL DRIVER): Stable. He status post procedures, peripheral stents in both legs. Continue secondary prevention. . 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 We discussed and reviewed the following issues Glucose control He has been following his home glucoses and weight. His last A1C is: Lab Results Component Value Date/Time HGBA1C 7.2 (H) 12/18/2016 04:36 AM FFKO0YSMB 5.4 09/24/2019 12:46 PM Wt Readings from [...] blockage of another artery (Dr. Mcmahon) at [facility]. Type 2 diabetes mellitus without complication 12/19/19 12 02/06/2018 Bruising 02/06/2018 Encounters Date Type Department Care Team Description 07/14/2024 11:30 AM CDT Video Visit [facility] Psychiatry [place] [address] [place] [facility] [place] [address] Rashawn Olvera, Recurrent major depressive disorder, in full remission; Generalized anxiety disorder 07/14/2024 Abstract [facility] - [facility] [address] [facility] [address] [place] [phone] Mirian Wallace MD 07/13/2024 External Device Data STL ABSTRACTION Provider, Abstract 07/13/2024 External Device Data STL ABSTRACTION Provider, Abstract 07/13/2024 Abstract [facility] Gastroenterology [facility] [address] [facility] [address] [place] [phone] Al Cooper MD 07/13/2024 Refill [facility] HEART AND VASCULAR - [facility] [id number] [address] [facility] [address] [place] [phone] Flo Donahue MD Benign hypertension 07/10/2024 Refill [facility] Psychiatry [facility] [address] [facility] [place] [address] Rashawn Olvera DO Recurrent major depressive disorder, in full remission 07/08/2024 Telephone [facility] GASTROENTEROLOGY - [address] [place] [address] [facility] [address] [place] [phone] Nhan Ortiz DO PA for Rezdiffra 07/06/2024 1:10 PM CDT Office Visit [facility] GASTROENTEROLOGY - [address] [place] [address] [facility] [address] [place] [phone] Nhan Ortiz DO Elevated LFTs (Primary Dx); Obesity (BMI 35.0-39.9 without comorbidity); Moderate alcohol use disorder (CMS/HCC); Metabolic dysfunction-associa farshad steatotic liver disease (MASLD) 06/25/2024 Refill [facility] Care - [facility] [address] [facility] [address] [place] [address] Mirian Wallace MD 06/23/2024 2:30 PM CDT Office Visit [facility] HEART AND VASCULAR EP AT [facility] [address] [facility] [address] [place] [address] Bill De Anda MD Other persistent atrial fibrillation (CMS/HCC) (Primary Dx); Typical atrial flutter (CMS/HCC); Benign hypertension 06/08/2024 External Device Data STL ABSTRACTION Provider, Abstract 06/07/2024 Refill [facility] HEART AND VASCULAR - [address] [phone] Flo Donahue MD Mixed hyperlipidemia; Benign hypertension; Coronary artery disease involving qagan tayagungin coronary artery of qagan tayagungin heart without angina pectoris 05/28/2024 Abstract [facility] Primary Care - [address] [phone] Mirian Wallace MD 05/18/2024 Abstract [facility] Primary Care [address] [phone] Mirian Wallace MD 05/14/2024 10:30 AM ROUTE CDL DRIVER Office Visit [facility] Primary Care Same Day [address] [phone] Valerie Tapia FNP Liver fibrosis (Primary Dx); Generalized body aches; Other fatigue; Abnormal urine color 05/11/2024 External Device Data STL ABSTRACTION Provider, Abstract 05/11/2024 External Device Data STL ABSTRACTION Provider, Abstract 05/05/2024 Orders Only [facility] Care - [address] [phone] Mirian Wallace MD 05/05/[address] [phone] Mirian Wallace MD 04/28/2024 Chart Note [facility] HEART AND VASCULAR - [address] [phone] Flo Donahue MD 04/23/2024 Orders Only [facility] Heart and Vascular At [place] [address] [address] [facility] [address] [place] [phone] Renetta Tyler RN Paroxysmal atrial fibrillation (CMS/HCC); Coronary artery disease involving qagan tayagungin coronary artery of qagan tayagungin heart without angina pectoris from Last 3 Months Immunizations Immunization Administration Dates Next Due (ADACEL/BOOSTRIX)(10 YR UP) TDAP VACCINE, 0.5ML, IM 11/08/2017 (AREXVY)(60 YR UP) RSV, GURJIT MBINANT, PROTEIN SUBUNIT RSVPREF, ADJUVANT RECONSTITUTED, 0.5 ML, PF 01/24/2023 (PFIZER)(12 YR UP) COVID-19 VACCINE - EMERGENCY USE AUTHORIZATION, MRNA, [id number](PF) 30 MCG/0.3 ML IM SUSP 12/07/2020 (PREVNAR [...] 3 Jayshree Velez Yonytulio Stroke Sister 3 Jayshree Lino Anxiety Sister 4 MJ Anxiety Sister [...] on file Legal Sex Male 4:59 AM ROUTE CDL DRIVER Gender Identity Not on file Sexual Orientation Not on file Last Filed Vital Signs Vital Sign Reading Time Taken Comments Blood Pressure 155/79 07/06/2024 12:32 PM CDT Pulse 72 07/06/2024 12:32 PM CDT Temperature 36.3 C (97.4 F) 07/06/2024 12:32 PM CDT Respiratory Rate 18 05/14/2024 10:09 AM ROUTE CDL DRIVER Oxygen Saturation 90% 07/06/2024 12:32 PM CDT Inhaled Oxygen Concentration - - Weight 135.6 kg (299 lb) 07/06/2024 12:32 PM CDT Height 190.5 cm (6' 3 ) 07/06/2024 12:32 PM CDT Body Mass Index 37.37 07/06/2024 12:32 PM CDT Plan of Treatment Upcoming Encounters Date Type Department Care Team (Late st Contact Info) Description 08/11/2024 3:15 PM CDT Office Visit [facility] HEART AND VASCULAR EP AT [facility] [address] [facility] [address] [place] [phone] Bill De Anda MD [address] [facility] [address] [place] [phone] 08/18/2024 11:30 AM CDT Office Visit [facility] Primary Care - [facility] [address] [phone] [place] [address] [address] 09/15/2024 11:30 AM CDT Office Visit [facility] HEART AND VASCULAR - [place] [address] [facility] [address] [place] [address] Flo Donahue MD [address] [facility] [address] [place] [address] 09/21/2024 11:00 AM CDT Office Visit [facility] Neurology [address] [facility] [address] [place] [address] Ashley Holloway, DARLENE [address] [facility] [address] [place] [address] 10/05/2024 1:15 PM CDT Office Visit [facility] GASTROENTEROLOGY - [address] [facility] [address] [address] [facility] 102 [place] [phone] Konrad Aburto, JAMI [address] [facility] 102 [place] [address] 11/26/2024 1:00 PM CDT Office Visit [facility] Pulmonology [facility] [address] [facility] [address] [place] [address] Silvio Avalos, [facility] [address] [place] [phone] 12/27/2024 1:30 PM CDT Office Visit [facility] HEART AND VASCULAR EP AT [facility] [address] [facility] [address] [place] [address] Guerrero Lind MD [address] [facility] [address] [place] [address] 09/22/2025 11:00 AM CDT Office Visit [facility] Neurology [address] [facility] [address] [place] [address] Carmine Castano MD [address] [facility] [address] [place] [address] Health Maintenance Due Date Last [...] season) 2023 12/07/2020, 05/30/2020, 04/19/2020 [place] Preventative Visit/Annual Wellness Visit 03/10/2024 08/15/2023, 01/15/2022, [...] history exists Medical Devices Implanted Type Area Shipping Assistant Device Identifier Shelf Expiration Date Model / Serial / Lot Vitoss Foam Pack Ba2x 5ml - [id number] Implanted:Qty : 1 on 04/12/2022 by Aman Justice MD at [facility] Biological N/A: Spine Cervical Anterior NEELAM[employer]INE [id number] 04/06/202321018798-7094 / / [id number] Tritanium C Anterior Cervical Cage 5 Mm X 12mm X 14mm X 6 Implanted:Qty : 1 on 04/12/2022 by Aman Justice MD at [facility] Cage N/A: Spine Cervical Anterior [employer] [id number] 01/22/2027 [id number] / / [id number] Description:ID : [id number] 21P. All [place] cervical hardware was processed on requisition, [id number]. Tritanium Anterior Cervical Cage Implanted:Qty : 1 on 04/12/2022 by Aman Justice MD at [facility] Cage N/A: Spine Cervical Anterior [employer]ELAM[employer] SPINE 02/17/2023 [id number] / / [id number] Cement Bone Biomet R 1x40 [id number] - [id number] Implanted:Qty : 2 on 10/01/2021 by Ke Bhatt MD at [facility] Right: Knee [employer]SON [employer] 12/08/2023 [id number] / / [id number] Dev Cardiva Vascade Mvp Xl Vvcs 10-12fr 800-1012xl - [id number] Implanted:Qty : 1 on 03/08/2024 by Bill De Anda MD at [facility] Closure Device Right: Groin [employer] [id number] 12/03/2025 800-1012XL / / [id number] Dev Vns Vasc Clsr Vascade Mvp St 576-335k-03f - [id number] Implanted:Qty : 1 on 03/08/2024 by Bill De Anda MD at [facility] Closure Device Left: Groin [employer] [id number] 07/20/2025 800-612C-1 0U / / [id number] 2C0O Dev Vns Vasc Clsr Vascade Mvp [id number]-[id number] - [id number] Implanted:Qty : 1 on 03/08/2024 by Bill De Anda MD at [facility] Closure Device Left: Groin [employer] [id number] 07/20/2025 800-612C-1 0U / / [id number] 2C0O Hemostatic Surgifoam Sz100 1973 - [id number] Implanted:Qty : 1 on 06/23/2020 by Aman Justice MD at [facility] Hemostatic Right: Spine Lumbar J&J- [employer] 02/03/20241973 / / [id number] Hemostatic Surgifoam Sz100 1973 - [id number] Implanted:Qty : 1 on 04/12/2022 by Aman Justice MD at [facility] Hemostatic N/A: Spine Cervical Anterior J&J- [employer] [id number] 12/03/2025 1974 / / [id number] Bearing Vanguard Ant Stab 10x75 [id number] - [id number] Implanted:Qty : 1 on 10/01/2021 by Ke Bhatt MD at [facility] Knee Right: Knee [employer] [id number] 06/28/2023 900345 / / [id number] Description:CAP BORREGO Comp Fem Vanguard Cr Interlock Rt 75mm 315345 - [id number] Implanted:Qty : 1 on 10/01/2021 by Ke Bhatt MD at [facility] Knee Right: Knee [employer] [id number] 01/02/2031 [id number] / / [id number] Description:FRANDY BORREGO Patella 3peg Series A [id number] - [id number] Implanted:Qty : 1 on 10/01/2021 by Ke Bhatt MD at [facility] Knee Right: Knee [employer] 04/05/2026 [id number] / / [id number] Description:CAP BORREGO Comp Tib Cocr Finned 75mm [id number] - [id number] Implanted:Qty : 1 on 10/01/2021 by Ke Bhatt MD at [facility] Knee Right: Knee [employer] 07/28/2031 [id number] / / [id number] Description:FRANDY BORREGO 40mm 2 Level Plate Implanted:Qty : 1 on 04/12/2022 by Aman Justice MD at [facility] Plate N/A: Spine Cervical Anterior NEELAM- SPINE [id number] / STERILIZED FEB 3 23 / LOAD # 8 1 12mmx4.0 Self Tapping Variable Screws Implanted:Qty : 6 on 04/12/2022 by Aman Justice MD at [facility] Screw N/A: Spine Cervical Anterior NEELAM- SPINE [id number] / STERILIZED FEB 3 23 / LOAD #1 8 Stent Vasc Supera 6fr [id number]- P6-12/17/2016 Implanted:12/2016 by Flo Donahue MD (Quantity not on file) Stent [facility] [id number] 01/07/2017 S-65-100-1 20-P6 / / [id number] Description:Prox politeal / right SFA Stent Vasc Supera 6fr [id number]- P6-12/17/2016 Implanted:12/2016 by Flo Donahue MD (Quantity not on file) [facility]ent [facility] [id number] 11/07/2017 S-65-100-1 20-P6 / / [id number] Description:right SFA Right Big Toe Titanium Procedures Procedure Name Priority Date/Time Associated Diagnosis Comments MO ECG ROUTINE ECG W/LEAST 12 LDS W/I&R Routine 06/23/2024 3:15 PM CDT Other persistent atrial fibrillation (CMS/HCC) POC URINALYSIS DIPSTICK AUTOMATED Routine 05/14/2024 10:42 AM ROUTE CDL DRIVER Abnormal urine color DIABETES EYE EXAM Routine 04/29/2024 9:00 AM ROUTE CDL DRIVER COLONOSCOPY REPORT 03/31/2024 11 :[address] ABDOMEN PELVIS WO CONTRAST Stat 12/11/2022 11:48 AM CDT Chronic diarrhea Loose bowel movement from Last 3 Months or Most Recently Relevant to Health Maintenance Results * MO ECG ROUTINE ECG W/LEAST 12 LDS W/I&R (06/23/2024 3:15 PM CDT) [facility] HEART AND VASCULAR - 06/23/2024 3:15 PM CDT Bill De Anda MD 06/23/2024 3:16 PM Sinus rhythm with first-degree AV block at 68 bpm. MO duration 265 ms. Procedure Note Bill De Anda MD - 06/23/2024 3:15 PM CDT Sinus rhythm with first-degree AV block at 68 bpm. MO duration 265 ms. us Bill De Anda MD ECG ORDERABLES Final Result [facility] HEART AND VASCULAR CLIA #[id number] [address] [facility], [facility] [address] [place] [address] * POC URINALYSIS DIPSTICK AUTOMATED (05/14/2024 10:42 AM ROUTE CDL DRIVER) COLOR UA POC Yellow Pale to Dark Yellow [facility] CLARITY UA POC Clear Clear, Other [facility] GLUCOSE UA POC Negative Negative, Normal [facility] BILIRUBIN UA POC Negative Negative [facility] KETONES UA POC Negative Negative [facility] SPECIFIC GRAVITY UA POC 1.015 1.000 - 1.030 [facility] BLOOD UA POC Negative Negative [facility] PH UA POC 7.0 5.0 - 8.[address] [facility] PROTEIN UA POC Negative Negative [facility] UROBILINOGEN UA POC 0.2 <2.0 mg/dL [facility] NITRITE UA POC Negative Negative [facility] LEUKOCYTE ESTERASE UA POC Negative Negative [facility] KIT LOT NUMBER POC 402,017 [facility] KIT EXP DATE POC 10/07/2024 [facility] Urine 05/14/2024 10:4 2 AM ROUTE CDL DRIVER Valerie Tapia GIVER POINT OF CARE TESTING Final Re sult P [id number]|2024-07-21 10:42:44|2024-07-21 10:42:44|WPDANESPN||||"Anes - Prog Note Post-Op Date/Time: 07/21/24 10:42 Cardiovascular status: normal Respiratory status: normal Airway patency: baseline Mental status: baseline Post-Op hydration status: normal Vital Signs: Last Vital Signs Temp 36.3 C L 07/21/24 04:37 Pulse 64 07/21/24 08:30 Resp 18 07/21/24 04:37 BP 150/68 H 07/21/24 04:37 Pulse Ox 98 07/21/24 04:37 O2 Del Method Room Air 07/21/24 08:30 O2 Flow Rate 4 07/20/24 16:56 Pain Score (VAS): 0 I/O: Intake & Output 05/13/25 05/14/25 05/14/25 23:59 07:59 15:59 Intake Total 1320 1000 240 Balance 1320 1000 240 Laboratory Tests 07/21/24 04:19 07/21/24 04:19 07/16/24 07/21/24 10:12 04:19 WBC 6.0 RBC 3.95 L Hgb 11.9 L Hct 34.7 L MCV 87.8 MCH 30.1 MCHC 34.3 RDW 15.1 H Plt Count 189 MPV 10.2 Sodium 135 L Potassium 3.5 Chloride 100 Carbon Dioxide 27 Anion Gap 8 BUN 9 Creatinine 0.92 Estim Creat Clear Calc 91 Estimated GFR > 60 Glucose 166 H Calcium 8.2 L Hepatitis E IgG Ab Not detected Hepatitis E IgM Ab Not detected Post-procedural complaints: none Patient Feedback: Patient satisfied with anesthetic care."
--- OUTSIDE RECORDS SUMMARY | 2024-07-15 21:57 | XMS_ITS | Encounter Summary ---
Author Organization [facility] Address [address] [place] [address] Care Team Providers Care Powder Guard Name Role Phone Mirian Wallace MD Primary Care Provider [phone] Encounter Details Date Type Department Care Team (Late st Contact Info) Description 03/24/1998 Outpatient Historical [facility] ST[facility] Zane Renee MD [facility] [place] [phone] Er, Authorized P NO ADDRESS ON FILE Sprain of lumbar region (Primary Dx) Social History Tobacco Use Types Packs/Day Years Used Date Smoking Tobacco: Never Assessed Sex and Gender Information Value Date Recorded Sex Assigned at Not on file Legal Sex Male 4:59 AM LICENSED APPRAISER Gender Identity Not on file Sexual Orientation Not on file documented as of this encounter Plan of Treatment Upcoming Encounters Date Type Department Care Team (Late Contact Info) Description 08/11/2024 3:15 PM CDT Office Visit [facility] HEART AND VASCULAR EP AT [place] [address] [facility] [address] [place] [address] Bill De Anda MD [facility] [address] [facility] [address] [place] [address] 08/18/2024 11:30 AM CDT Office Visit [facility] Primary Care - [address] [place] [address] [place] [address] [facility] [address] [place] [phone] 09/15/2024 11:30 AM CDT Office Visit [facility] HEART AND VASCULAR - [place] [address] [facility] [address] [place] [phone] Flo Donahue MD [address] [facility] [address] [place] [address] 09/21/2024 11:00 AM CDT Office Visit [facility] Neurology [facility] [address] [facility] [address] [place] [address] Ashley Holloway, [facility] [address] [facility] [address] [place] [address] 10/05/2024 1:15 PM CDT Office Visit [facility] GASTROENTEROLOGY - [address] [facility] [address] [address] [facility] [address] [place] [address] Konrad Aburto, [facility] [address] [facility] [address] [place] [phone] 11/26/2024 1:00 PM CDT Office Visit [facility] Pulmonology [facility] [address] [facility] [address] [place] [address] Silvio Avalos, [facility] [address] [facility] [place] [address] 12/27/2024 1:30 PM CDT Office Visit [facility] HEART AND VASCULAR EP AT [facility] [address] [facility] [address] [place] [address] Guerrero Lind MD [address] [facility] [address] [place] [address] 09/22/2025 11:00 AM CDT Office Visit [facility] Neurology [address] [facility] [address] [place] [address] Carmine Castano MD [address] [facility] [address] [place] [address] documented as of this encounter Visit Diagnoses Diagnosis Sprain of lumbar region- Primary documented in this encounter Additional Health Concerns Infection Onset Date Last Indicated Resolved Time C Diff Comment:10/26/15 08/08/2017-outside 60 days from last positive culture obtianed.resolved. 10/27/2015 10/27/201503/2017 3:50 PM CDT R/O COVID-19 12/10/2019 12/10/2019 12/13/2019 1:16 AM CDT COVID-19 12/11/2019 12/11/2019 01/10/2020 1:16 AM LICENSED APPRAISER R/O C. diff 08/04/2021 08/03/2021 08/04/2021 2:45 PM CDT R/O Respiratory 05/13/2022 05/13/2022 05/14/2022 1 2:32 AM LICENSED APPRAISER R/O GI Pathogen 05/13/2022 05/13/2022 05/14/2022 1 2:32 AM LICENSED APPRAISER R/O C. diff 12/09/2022 12/09/2022 12/10/2022 1:06 PM CDT R/O C. diff 01/23/2024 01/22/2024 01/23/2024 5:28 PM LICENSED APPRAISER documented as of this encounter Care Teams Powder Guard Relationship Specialty [place] [address] [facility] [address] [place] [address] PCP - General 05/07/12 documented as of this encounter
--- OUTSIDE RECORDS SUMMARY | 2024-07-15 21:57 | XMS_ITS | Encounter Summary ---
Author Organization [facility] Address [address] [place] [address] Care Team Providers Care Barrel Liner Name Role Phone Mirian Wallace MD Primary Care Provider Encounter Details Date Type Department Care Team (Late st Contact Info) Description 12/16/2022 Abstract [facility] Neurosurgery - Medical [place] [address] [facility] [address] [place] [address] Aman Justice MD [address] [facility] [address] [place] [address] Social History Tobacco Use Types [...] on file Legal Sex Male 4:59 AM MINER Gender Identity Not on file Sexual Orientation Not on file documented as of this encounter Plan of Treatment Upcoming Encounters Date Type Department Care Team (Late st Contact Info) Description 08/11/2024 3:15 PM CDT Office Visit [facility] HEART AND VASCULAR EP AT [facility] [address] [facility] [address] [place] [address] Bill De Anda MD [address] [facility] 2014 [place] [address] 08/18/2024 11:30 AM CDT Office Visit [facility] Primary Care - [facility] [address] [address] [place] [address] [address] 09/15/2024 11:30 AM CDT Office Visit [facility] HEART AND VASCULAR [place] [address] [address] Flo Donahue MD [address] [facility] 2014 [place] [address] 09/21/2024 11:00 AM CDT Office Visit [facility] Neurology [address] [facility] [address] [place] [address] Ashley Holloway, ARCHITECTURAL REPRESENTATIVE [address] [facility] [address] [place] [address] 10/05/2024 1:15 PM CDT Office Visit [facility] GASTROENTEROLOGY - [address] [facility] 102 [address] [facility] 102 [place] [address] Konrad Aburto, [facility] [address] [facility] 102 [place] [address] 11/26/2024 1:00 PM CDT Office Visit [facility] Pulmonology [facility] [address] [facility] [address] [place] [address] Silvio Avalos, [facility] [address] [facility] [place] [address] 12/27/2024 1:30 PM CDT Office Visit [facility] HEART AND VASCULAR EP AT [facility] [address] [facility] [address] [place] [address] Guerrero Lind MD [address] [facility] [address] [place] [address] 09/22/2025 11:00 AM CDT Office Visit [facility] Neurology [address] [facility] [address] [place] [address] Carmine Castano MD [address] [facility] [address] [place] [address] documented as of this encounter Visit Diagnoses Not on filedocumented in this encounter Additional Health Concerns Infection Onset Date Last Indicated Resolved Time R/O C. diff 01/23/2024 01/22/2024 01/23/2024 5:28 PM MINER Assessment Noted Time PHQ-9 Depression Total Score: 1 01/12/20 22 12:56 PM CDT documented as of this encounter Care Teams Barrel Liner Relationship Specialty [place] [address] [facility] [address] [place] [address] PCP - General 05/07/12 documented as of this encounter
--- OUTSIDE RECORDS SUMMARY | 2024-07-15 21:57 | XMS_ITS | Encounter Summary ---
Author Organization [facility] Address [address] [place] [address] Care Team Providers Care Cement Mason [employer] [address] Name Role Phone Mirian Wallace MD Primary Care Provider [phone] Reason for Visit * Reason Onset Date Comments Sheduling Procedure 12/18/2023 Encounter Details Date Type Department Care Team (Late st Contact Info) Description 12/18/2023 Telephone [facility] Heart and Vascular - [place] [address] [facility] [facility] [address] [place] [address] Bill De Anda MD [address] [facility] [address] [place] [address] Sheduling Procedure Social History Tobacco [...] on file Legal Sex Male 4:59 AM BRASS BOBBIN WINDER Gender Identity Not on file Sexual Orientation [...] Description 08/11/2024 3:15 PM CDT Office Visit [facility] HEART AND VASCULAR EP AT [address] [place] [phone] Bill De Anda MD [address] [place] [address] 2014 [place] [address] 08/18/2024 11:30 AM CDT Office Visit [facility] Primary Care - [address] [address] Mirian Wallace MD [address] [place] [address] 09/15/2024 11:30 AM CDT Office Visit [facility] HEART AND VASCULAR - [address] [address] Flo Donahue MD [facility] S [facility] 2014 [place] [address] 09/21/2024 11:00 AM CDT Office Visit [facility] Neurology [address] [facility] [address] [place] [address] Ashley Holloway, [facility] [address] [facility] [address] [place] [address] 10/05/2024 1:15 PM CDT Office Visit [facility] GASTROENTEROLOGY - [address] [facility] 102 [address] [facility] 102 [place] [address] Konrad Aburto, [facility] [address] [facility] 102 [place] [address] 11/26/2024 1:00 PM CDT Office Visit [facility] Pulmonology [facility] [address] [facility] [address] [place] [address] Silvio Avalos, [facility] [address] [facility] [place] [address] 12/27/2024 1:30 PM CDT Office Visit [facility] HEART AND VASCULAR EP AT [facility] [address] [facility] [address] [place] [address] Guerrero Lind MD [address] [facility] [address] [place] [address] 09/22/2025 11:00 AM CDT Office Visit [facility] Neurology [address] [facility] [address] [place] [address] Carmine Castano MD [address] [facility] [address] [place] [address] documented as of this encounter Visit Diagnoses Not on filedocumented in this encounter Additional Health Concerns Infection Onset Date Last Indicated Resolved Time R/O C. diff 01/23/2024 01/22/2024 01/23/2024 5:28 PM BRASS BOBBIN WINDER Assessment Noted Time PHQ-9 Depression Total Score: 2 08/08/19 24 3:47 PM CDT documented as of this encounter Care Teams Cement Mason [employer] Relationship Specialty [place] [address] [address] PCP - General 05/07/12 documented as of this encounter
--- OUTSIDE RECORDS SUMMARY | 2024-07-15 21:57 | XMS_ITS | Clinical Summary ---
Author Organization [facility] Address [address] [facility] [place] [address] Care Team Providers Care Profile Saw Operator Name Role Phone Unavailable Primary Care Provider Unavailabl e Source Comments [facility],non-owned Affiliates and Associated Physician Practices is amultiple site organization consisting of ambulatory clinics and hospital sitesin [place], [place], [place] and [place]. This disclosure is being madepursuant to the Care Everywhere program and may not contain all information available regarding this patient. Last updated 17.[facility] Encounters Date Type Department Care Team Description 05/04/2024 Lab Requisition [facility] - DermPath Lab [address] [place] [address] Jose Brito MD Neoplasm of uncertain behavior of skin from Last 3 Months Social History Tobacco Use Types Packs/Day Years Used Date Smoking Tobacco: Never Assessed Sex and Gender Information Value Date Recorded Sex Assigned at Not on file Legal Sex Male 6:23 PM FORESTRY TREE PRUNER Gender Identity Not on file Sexual Orientation [...] Comments DERMATOPATHOLOGY Routine 05/04/2024 10:0 3 AM FORESTRY TREE PRUNER Neoplasm of uncertain behavior of skin from Last 3 Months Results * DERMATOPATHOLOGY (05/04/2024 10:03 AM FORESTRY TREE PRUNER) Case Report Dermatopathology Report Case: [id number] Authorizing Provider: Jose Brito MD Collected: 05/04/2024 10:03 AM Ordering Location: [facility] - Received: 05/07/2024 06:38 AM DermPath Lab Pathologist: Jana Brown MD Specimen: Skin, left anterior jaw 12:56 PM FORESTRY TREE PRUNER DERMATOPATHOLOGY LABORATORY Final Diagnosis Specimen A. SKIN, left anterior jaw: DERMAL SCAR, PRESENT AT THE BASE RESIDUAL SQUAMOUS PROLIFERATION NOT IDENTIFIED (L90.5) 12:56 PM FORESTRY TREE PRUNER DERMATOPATHOLOGY LABORATORY Clinical History Atypical Squamous Proliferation Prior biopsy 12:56 PM FORESTRY TREE PRUNER DERMATOPATHOLOGY LABORATORY Gross Description Specimen A: Received is one formalin filled container labeled with the patient's name and designated left anterior jaw. The specimen consists of a shave biopsy measuring [id number] mm. Jar 0. 12:56 PM FORESTRY TREE PRUNER DERMATOPATHOLOGY LABORATORY Microscopic Description Specimen A. SKIN, left anterior jaw: There are elongated blood vessels, some of which are oriented perpendicular to the skin surface, which is present at the base of the specimen. No residual squamous proliferation is identified. 5 12:[address] [facility] DERMATOPATHOLOGY LABORATORY Disclaimer An external and internal positive and negative controls are appropriate for the histochemical, immunohistochemical and immunofluorescence stain(s) in this case (if any), except where stated explicitly. The performance characteristics of the stain(s) cited in this report were developed and its performance characteristic determined by the Dermatopathology Laboratory at [facility], directed by Dr. Collin Mckeon. These tests need not be, and therefore are not, approved by the [place] Food and Drug Administration. The tests are used for clinical purposes. Billing Codes Specimen Charges Stain Charges 83126 1 5 12:[address] [facility] DERMATOPATHOLOGY LABORATORY Embedded Images 5 12:[address] [facility] DERMATOPATHOLOGY LABORATORY Pathology/Cytolo gy TISSUE SPECIMEN FROM SKIN / Unknown 05/04/2024 10:03 AM FORESTRY TREE PRUNER 05/07/2024 6:38 AM FORESTRY TREE PRUNER Jose Brito MD LAB - PATHOLOGY/CYTOLOGY BISI GARCIA Final Result DERMATOPATHOLOGY LABORATORY [facility] - Department of Dermatology [facility] Medicine [address] [place] [address], [address] [phone] from Last 3 Months [place] [address] [employer] MANAGED MEDICARE ADV
--- OUTSIDE RECORDS SUMMARY | 2024-07-15 21:57 | XMS_ITS | Encounter Summary ---
Author Organization [facility] Address [address] [place] [address] Care Team Providers Care Filing Or Registry Clerk Name Role Phone Unavailable Primary Care Provider Unavailabl e Encounter Details Date Type Department Care Team (Late st Contact Info) Description 05/04/2024 Lab Requisition [facility] - DermPath Lab [address] [place] [phone] Jose Brito MD [facility] DERMATOLOGY [address] [place] [phone] Neoplasm of uncertain behavior of skin Social History Tobacco Use Types Packs/Day Years Used Date Smoking Tobacco: Never Assessed Sex and Gender Information Value Date Recorded Sex Assigned at Not on file Legal Sex Male 6:23 PM CREDIT REVIEW ANALYST Gender Identity Not on file Sexual Orientation Not on file documented as of this encounter Plan of Treatment Not on file documented as of this encounter Procedures Procedure Name Priority Date/Time Associated Diagnosis Comments DERMATOPATHOLOGY Routine 05/04/2024 10:0 3 AM CREDIT REVIEW ANALYST Neoplasm of uncertain behavior of skin documented in this encounter Results * DERMATOPATHOLOGY (05/04/2024 10:03 AM CREDIT REVIEW ANALYST) Case Report Dermatopathology Report Case: [id number] Authorizing Provider: Jose Brito MD Collected: 05/04/2024 10:03 AM Ordering Location: [facility] Physician [facility] - Received: 05/07/2024 06:38 AM DermPath Lab Pathologist: Jana Brown MD Specimen: Skin, left anterior jaw 12:56 PM CREDIT REVIEW ANALYST DERMATOPATHOLOGY LABORATORY Final Diagnosis Specimen A. SKIN, left anterior jaw: DERMAL SCAR, PRESENT AT THE BASE RESIDUAL SQUAMOUS PROLIFERATION NOT IDENTIFIED (L90.5) 12:56 PM [facility] DERMATOPATHOLOGY LABORATORY Clinical History Atypical Squamous Proliferation Prior biopsy 12:56 PM [facility] DERMATOPATHOLOGY LABORATORY Gross Description Specimen A: Received is one formalin filled container labeled with the patient's name and designated left anterior jaw. The specimen consists of a shave biopsy measuring 29t72w0 mm. Jar 0. 12:56 PM [facility] DERMATOPATHOLOGY LABORATORY Microscopic Description Specimen A. SKIN, left anterior jaw: There are elongated blood vessels, some of which are oriented perpendicular to the skin surface, which is present at the base of the specimen. No residual squamous proliferation is identified. 12:56 PM [facility] DERMATOPATHOLOGY LABORATORY Disclaimer An external and internal positive and negative controls are appropriate for the histochemical, immunohistochemical and immunofluorescence stain(s) in this case (if any), except where stated explicitly. The performance characteristics of the stain(s) cited in this report were developed and its performance characteristic determined by the Dermatopathology Laboratory at [facility], directed by Dr. Collin Mckeon. These tests need not be, and therefore are not, approved by the [place] Food and Drug Administration. The tests are used for clinical purposes. Billing Codes Specimen Charges Stain Charges 58473 1 12:56 PM [facility] DERMATOPATHOLOGY LABORATORY Embedded Images 12:56 PM [facility] DERMATOPATHOLOGY LABORATORY Pathology/Cytolo gy TISSUE SPECIMEN FROM SKIN / Unknown 05/04/2024 10:03 AM CREDIT REVIEW ANALYST 05/07/2024 6:38 AM [facility] us Jose Brito MD LAB - PATHOLOGY/CYTOLOGY BISI GARCIA Final Result DERMATOPATHOLOGY LABORATORY [facility] - Department of Dermatology [address] [place] [address], [facility] [[email or web address]] [phone] documented in this encounter Visit Diagnoses Diagnosis Neoplasm of uncertain behavior of skin documented in this encounter
--- OUTSIDE RECORDS SUMMARY | 2024-07-15 21:57 | XMS_ITS | Encounter Summary ---
Author Organization [facility] Address [address] [place] [address] Care Team Providers Care Forestry Technical Officer Name Role Phone Unavailable Primary Care Provider Unavailabl e Encounter Details Date Type Department Care Team (Late st Contact Info) Description 07/22/2023 Lab Requisition [facility] - DermPath Lab [address] [place] [phone] Birdie Brito APRN-CNP [facility] DERMATOLOGY [address] [place] [address] Neoplasm of uncertain behavior of skin Social History Tobacco Use Types Packs/Day Years Used Date Smoking Tobacco: Never Assessed Sex and Gender Information Value Date Recorded Sex Assigned at Not on file Legal Sex Male 6:23 PM NEUROSURGERY RESEARCH DIRECTOR Gender Identity Not on file Sexual [...] AM CDT) Case Report Dermatopathology Report Case: [id number] Authorizing Provider: Birdie Brito, Collected: 07/22/2023 12:00 AM SUGAR MILL WORKERAPPLE Ordering Location: [facility] - Received: 07/23/2023 02:55 PM DermPath Lab Pathologist: Graciela Cortes MD Specimen: Skin, left lateral voodoo 12:58 PM CDT DERMATOPATHOLOGY LABORATORY Final Diagnosis Specimen A. 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 The specimen consists of a shave biopsy measuring 10x7x2 mm. Jar 0. 12:58 PM CDT DERMATOPATHOLOGY LABORATORY Microscopic Description Specimen A. SKIN, left lateral voodoo: The epidermis shows parakeratosis, full thickness disorderly [...] characteristic determined by the Dermatopathology Laboratory at [facility], directed by Dr. Collin Mckeon. These tests need not be, and therefore are not, approved by the [place] Food and Drug Administration. The tests are used for clinical purposes. Billing Codes Specimen Charges Stain Charges 22127 1 12:58 PM CDT DERMATOPATHOLOGY LABORATORY Embedded Images 12:58 PM CDT DERMATOPATHOLOGY LABORATORY Pathology/Cytolog y TISSUE SPECIMEN FROM SKIN / Unknown 07/22/2023 07/23/2023 2:55 PM CDT us Birdie Brito SUGAR MILL WORKER-OFFICE MACHINE SERVICE SUPERVISOR LAB - PATHOLOGY/CY TOLOGY ORDERABLES Final Result DERMATOPATHOLOGY LABORATORY [facility] - Department of Dermatology [address] [place] [address], [facility] [phone] documented in this encounter Visit Diagnoses Diagnosis Neoplasm of uncertain behavior of skin documented in this encounter
--- OUTSIDE RECORDS SUMMARY | 2024-07-15 21:57 | XMS_ITS | Clinical Summary ---
Author Organization [facility] Address [address] [place] [address] Care Team Providers Care Right Of Way Cutter Name Role Phone Unavailable Primary Care Provider [...]
--- OUTSIDE RECORDS SUMMARY | 2024-07-15 21:57 | XMS_ITS | Encounter Summary ---
Author Organization [facility] Address [address] [place] [address] Care Team Providers Care Media Strategist Name Role Phone Mirian Wallace MD Primary Care Provider Encounter Details Date Type Department Care Team (Latest Contact Info) Description 03/30/2024 Results Follow-Up [facility] GASTROENTEROLOGY - [address] [facility] 102 [address] [facility] 102 [place] [address] Nhan Ortiz, [address] [facility] [address] [place] [address] [place] ABDOMEN LIMITED, HEPATITIS B [...] on file Legal Sex Male 4:59 AM FINANCE SPECIALIST Gender Identity Not on file Sexual Orientation Not on file documented as of this encounter Plan of Treatment Upcoming Encounters Date Type Department Care Team (Late st Contact Info) Description 08/11/2024 3:15 PM CDT Office Visit [facility] HEART AND VASCULAR EP AT [facility] [address] [facility] [address] [place] [address] Bill De Anda MD [address] [facility] [address] [place] [address] 08/18/2024 11:30 AM CDT Office Visit [facility] Primary Care - [address] [address] [place] Wallace [place] [address] [place] [address] 09/15/2024 11:30 AM CDT Office Visit [facility] HEART AND VASCULAR - [place] [id number] [place] [address] Flo Donahue MD [address] [facility] [place] [address] [place] [address] 09/21/2024 11:00 AM CDT Office Visit [facility] Neurology [address] [facility] [address] [place] [address] Ashley Holloway, [facility] [address] [facility] [address] [place] [address] 10/05/2024 1:15 PM CDT Office Visit [facility] GASTROENTEROLOGY - [address] [facility] 102 [address] [facility] 102 [place] [address] Konrad Aburto, [facility] [address] [facility] 102 [place] [address] 11/26/2024 1:00 PM CDT Office Visit [facility] Pulmonology [facility] [address] [facility] [address] [place] [address] Silvio Avalos, [facility] [address] [facility] [place] [address] 12/27/2024 1:30 PM CDT Office Visit [facility] HEART AND VASCULAR EP AT [facility] [address] [facility] [address] [place] [address] Guerrero Lind MD [address] [facility] [address] [place] [address] 09/22/2025 11:00 AM CDT Office Visit [facility] Neurology [address] [facility] [address] [place] [address] Carmine Castano MD [address] [facility] [address] [place] [address] documented as of this encounter Visit Diagnoses Not on filedocumented in this encounter Additional Health Concerns Assessment Noted Time PHQ-9 Depression Total Score: 2 08/08/19 24 3:47 PM CDT documented as of this encounter Care Teams Media Strategist Relationship Specialty Start Date End Date Rodrig[place], [place] [address] [address] PCP - General 05/07/12 documented as of this encounter
--- OUTSIDE RECORDS SUMMARY | 2024-07-15 21:57 | XMS_ITS | Encounter Summary ---
Author Organization [facility] Address [address] [place] [address] Care Team Providers Care Third Hand Name Role Phone Mirian Wallace MD Primary Care Provider [phone] Reason for Visit * Reason Comments Anxiety Follow Up * Eval and Treat (Routine) - Authorized Specialty Diagnoses / Procedures Referred By Lia cobian Referred To Contact Psychiatry Diagnoses Follow up Procedures VIDEO VISIT [facility] [address] [place] [address] Rashawn Olvera DO [address] [place] [address] [place] [address] Phone: tel: fax: Referral ID Status Reason Start Date Expiration Date V isits Requested Visits Authorized [id number] Authorized 07/09/2023 08/08/2024 60 60 Encounter Details Date Type Department Care Team (Late st Contact Info) Description 07/14/2024 11:30 AM CDT Video Visit [facility] Psychiatry [facility] and [address] [place]TRY [facility] [place] [address] Rashawn Olvera DO [address] [place] [address] Country [facility] [place] [address] Recurrent major depressive disorder, [...] on file 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 Tirado in [place]. Saw hypnotist once and tried CBT, cannot [...] Description 08/11/2024 3:15 PM CDT Office Visit [facility] HEART AND VASCULAR EP AT [place] [address] [facility] [address] [place] [address] Bill De Anda MD [address] [place] [address] [address] [place] [address] 08/18/2024 11:30 AM CDT Office Visit [facility] Primary Care - [facility] [address] [facility] 100 [place] [address] [place] [address] [facility] 100 [place] [address] 09/15/2024 11:30 AM CDT Office Visit [facility] HEART AND VASCULAR - [place] [address] [facility] 100 [place] [address] Flo Donahue MD [address] [address] 09/21/2024 11:00 AM CDT Office Visit [facility] Neurology [address] [facility] [address] [place] [address] Ashley Holloway, [facility] [address] [facility] [address] [place] [address] 10/05/2024 1:15 PM CDT Office Visit [facility] GASTROENTEROLOGY - [address] [facility] 102 [address] [facility] 102 [place] [address] Konrad Aburto, [place] [address] [facility] 102 [place] [address] 11/26/2024 1:00 PM CDT Office Visit [facility] Pulmonology [facility] [address] [facility] [address] [place] [address] Silvio Avalos, [facility] 1603 [place] [address] 12/27/2024 1:30 PM CDT Office Visit [facility] HEART AND VASCULAR EP AT [facility] [address] [facility] [address] [place] [address] Guerrero Lind MD [address] [facility] [address] [place] [address] 09/22/2025 11:00 AM CDT Office Visit [facility] Neurology [address] [facility] [address] [place] [address] Carmine Castano MD [address] [facility] [address] [place] [address] documented as of this encounter Visit Diagnoses Diagnosis Recurrent major depressive disorder, in full remission Generalized anxiety disorder documented in this encounter Care Teams Third Hand Relationship Specialty [place] [address] [facility] 100 [place] [address] PCP - General 05/07/12 documented as of this encounter
--- OUTSIDE RECORDS SUMMARY | 2024-07-15 21:57 | XMS_ITS | Encounter Summary ---
Author Organization [facility] Address 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 Gender Identity Not on file Sexual Orientation Not on file documented as of this encounter Plan of Treatment Upcoming Encounters Date Type Department Care Team (Late st Contact Info) Description 08/11/2024 3:15 PM CDT Office Visit [facility] HEART AND VASCULAR EP AT [address] [place] [address] Bill De Anda MD [facility] S [facility] 2014 [place] [address] 08/18/2024 11:30 AM CDT Office Visit [facility] Primary Care - [facility] [id number] [place] [address] [place] [address] [address] 09/15/2024 11:30 AM CDT Office Visit [facility] HEART AND VASCULAR - [place] [address] [address] [facility] 100 [place] [address] Flo Donahue MD [address] [facility] 2014 [place] [address] 09/21/2024 11:00 AM CDT Office Visit [facility] [address] [facility] [address] [place] [address] Ashley Holloway, [facility] [address] [facility] [address] [place] [address] 10/05/2024 1:15 PM CDT Office Visit [facility] GASTROENTEROLOGY - [address] [facility] [address] [phone] Konrad Aburto, [facility] [address] [facility] 102 [place] [address] 11/26/2024 1:00 PM CDT Office Visit [facility] Pulmonology [facility] [address] [facility] [address] [place] [address] Silvio Avalos, [facility] [address] [facility] [address] 12/27/2024 1:30 PM CDT Office Visit [facility] HEART AND VASCULAR EP AT [facility] [address] [facility] 2014 [place] [address] Guerrero Lind MD [address] [facility] [address] [place] [address] 09/22/2025 11:00 AM CDT [facility] Visit [facility] Neurology [address] [facility] [address] [place] [address] Carmine Castano MD [address] [facility] [address] [place] [address] documented as of this encounter Visit Diagnoses Diagnosis Urticaria, unspecified- Primary documented in this encounter Additional Health Concerns Infection Onset Date Last Indicated Resolved Time C Diff Comment:10/26/15 08/08/2017-outside 60 days from last positive culture obtianed.resolved. 10/27/2015 10/27/2015 06/0 03/2017 3:50 PM CDT R/O COVID-19 12/10/2019 12/10/2019 12/13/2019 1:16 AM CDT COVID-19 12/11/2019 12/11/2019 01/10/2020 1:16 AM ADMISSIONS MANAGER R/O C. diff 08/04/2021 08/03/2021 08/04/2021 2:45 PM CDT R/O Respiratory 05/13/2022 05/13/2022 05/14/2022 1 2:32 AM ADMISSIONS MANAGER R/O GI Pathogen 05/13/2022 05/13/2022 05/14/2022 1 2:32 AM ADMISSIONS MANAGER R/O C. diff 12/09/2022 12/09/2022 12/10/2022 1:06 PM CDT R/O C. diff 01/23/2024 01/22/2024 01/23/2024 5:28 PM ADMISSIONS MANAGER documented as of this encounter Care Teams Aquaculturist Relationship Specialty [place] [address] [facility] 100 [place] [address] PCP - General 05/07/12 documented as of this encounter
--- OUTSIDE RECORDS SUMMARY | 2024-07-15 21:57 | XMS_ITS | Encounter Summary ---
Author Organization [facility] Address 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 Gender Identity Not on file Sexual Orientation Not on file documented as of this encounter Plan of Treatment Upcoming Encounters Date Type Department Care Team (Late st Contact Info) Description 08/11/2024 3:15 PM CDT Office Visit [facility] HEART AND [facility]ASCULAR EP AT [facility] [address] [facility] 2014 [place] [address] Bill De Anda MD [address] [facility] 2014 [place] [address] 08/18/2024 11:30 AM CDT Office Visit [facility] Primary Care - [facility] [id number] [place] [address] [place] [address] [address] 09/15/2024 11:30 AM CDT Office Visit [facility] HEART AND VASCULAR [place] [phone] [place] [address] Flo Donahue MD [address] [facility] 2014 [place] [address] 09/21/2024 11:00 AM CDT Office Visit [facility] Neurology [address] [facility] [address] [place] [address] Ashley Holloway, [facility] [address] [facility] [address] [place] [address] 10/05/2024 1:15 PM CDT Office Visit [facility] GASTROENTEROLOGY - [address] [facility] 102 [address] [facility] 102 [place] [phone] Konrad Aburto, [facility] [address] [facility] 102 [place] [address] 11/26/2024 1:00 PM CDT Office Visit [facility] Pulmonology [facility] [address] [facility] [address] [place] [address] Silvio Avalos, [facility] [address] [place] [address] 12/27/2024 1:30 PM CDT Office Visit [facility] HEART AND VASCULAR EP AT [facility] [address] [facility] [address] [place] [address] Guerrero Lind MD [address] [facility] [address] [place] [address] 09/22/2025 11:00 AM CDT Office Visit [facility] Neurology [address] [facility] [address] [place] [address] Carmine Castano MD [address] [facility] [address] [place] [address] documented as of this encounter Visit Diagnoses Not on filedocumented in this encounter Care Teams Dentist Relationship Specialty [place] [address] [facility] 100 [place] [address] PCP - General 05/07/12 documented as of this encounter
--- OUTSIDE RECORDS SUMMARY | 2024-07-15 21:57 | XMS_ITS | Continuity of Care Document ---
Author Organization [facility] Address [address] [place] [address] [address] [place] [address] Phone Care Team Providers Care Bronze Chaser Name Role Phone Short PT, Kathleen Unavailable [...] Diagnoses Date Provider Providers Copied on Encounter [facility], [id number], tel:[phone] [place] No Information Mar-1 6202 2 Short Kathleen. . Referring Provider: Shukri Shannon [address], [place], [address]. tel:[phone] [facility] [address], [id number], tel:[phone] [place] No Information Mar-0 8202 2 Anusha Grimes. [address] [facility], [address], [place], [facility], [place]. tel:[phone] Referring Provider: Shukri Shannon [address], [place], [address]. tel:[phone] [facility] [address] [place] [address], [place], [place], [id number], tel:[phone] [place] No Information Mar-0 4-202 2 [place]. . Referring Provider: Shukri Shannon [address], [place], [address]. tel:[phone] [facility] [place] [address], [place], [place], [id number], tel:[phone] [place] No Information May-0 2 Schranck Cornelio. [address] [place] [address], [address], [place], [place], [facility], . tel: [phone] Referring Provider: Shukri Shannon, [address], [place], [address]. tel:[phone] [facility] [facility], [place], [place], [id number], [place] tel:[phone] [place] No Information 2 [place]. . Referring Provider: [address], [place], [address]. tel:[phone] [facility], [address] [facility], [place], [place], [id number], tel:[phone] [place] No Information 2 Anusha Grimes. [address] [place] [address], [address], [place], [place], [facility], . tel: [phone] Referring Provider: [address], [place], [address]. tel:[phone] [facility] [facility], [place], [place], [id number], [place] tel:[phone] [place] No Information 2 Garrels Itzel. . Referring Provider: [address], [place], [address]. tel: [facility], [place], [place], [id number], [place] tel:[phone] Pete No Information 2 [place]. . Referring Provider: [address], [place], [address]. tel: [facility], [place], [place], [id number], tel:[phone] [place] No Information Sep-2 0-201 6 David Turner , [place], . [facility] [place] [address], [place], [id number], tel:[phone] [place] No Information Sep-0 8-201 6 David Turner , [place], [place]. [facility] [place] [address], [place], [place], [id number], tel:[phone] [place] No Information Sep-0 6-201 6 David Turner , [place], . [facility], [address] [place] [address], [place], [place], [id number], tel:[phone] [place] Other spondylosis with myelopathy, lumbar regionLumbago with sciatica, left sideOther intervertebral disc degeneration, lumbar regionPain, unspecified Sep-0 1-201 6 David Turner , [place], . [facility], [address] [place] [address], [place], [place], [id number], tel:[phone] [place] No Information Aug-3 0-201 6 David Turner [place], [place], . Family History Family Member Type Diagnosis Age At Onset No Information Payers Payer name Insurance type Covered constitution party ID Authorbulla tirenu(s) Medicare [place] [id number] A[employer]na Senior Supplemental Insurance [id number] Social History Type Description Quantity Date Captured [...]
--- OUTSIDE RECORDS SUMMARY | 2024-07-15 21:57 | XMS_ITS | Encounter Summary ---
Author Organization [facility] Address [address] [facility] [place] [address] Care Team Providers Care Cattyman Name Role Phone Unavailable Primary Care Provider Unavailabl e Encounter Details Date Type Department Care Team (Late st Contact Info) Description 01/22/2024 Lab Requisition [facility] - DermPath Lab [address] [place] [address] Birdie Brito APRN-CNP [facility] DERMATOLOGY [address] [place] [address] Neoplasm of uncertain behavior of skin Social History Tobacco Use Types Packs/Day Years Used Date Smoking Tobacco: Never Assessed Sex and Gender Information Value Date Recorded Sex Assigned at Not on file 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 Gender Identity Not on file Sexual Orientation Not on file documented as of this encounter Plan of Treatment Not on file documented as of this encounter Procedures Procedure Name Priority Date/Time Associated Diagnosis Comments DERMATOPATHOLOGY Routine 01/22/2024 12:0 0 AM SUPERVISOR [employer]MING [employer] TEMPERING Neoplasm of uncertain behavior of skin documented in this encounter Results * DERMATOPATHOLOGY (01/22/2024 12:00 AM SUPERVISOR FORMING AND TEMPERING) Case Report Dermatopathology Report Case: [id number] Authorizing Provider: Birdie Brito, Collected: 01/22/2024 12:00 AM TRACK OILER-PRIVACY OFFICER Ordering Location: [facility] - Received: 01/23/2024 10:18 AM DermPath Lab Pathologist: Henrietta Carvalho MD Specimens: A) - Skin, left anterior jaw B) - Skin, left posterior jaw 2:41 PM [employer]PERING DERMATOPATHOLOGY LABORATORY Final Diagnosis Specimen A. 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 SKIN, left posterior jaw: GRANULOMATOUS DERMATITIS CONSISTENT WITH A RUPTURED CYST OR HAIR FOLLICLE (L72.0) DERMAL FIBROSIS (L90.5) 4 2:41 PM [facility] DERMATOPATHOLOGY LABORATORY Clinical History BCC 4 2:41 PM [facility] DERMATOPATHOLOGY LABORATORY Gross Description Specimen [...] measuring 9x8x2 mm. Jar 0. 2:41 PM [facility] DERMATOPATHOLOGY LABORATORY Microscopic Description Specimen [...] is surrounding dermal fibrosis. 4 2:41 PM [facility] DERMATOPATHOLOGY LABORATORY Disclaimer An external and internal positive and negative controls are appropriate for the histochemical, immunohistochemical and immunofluorescence stain(s) in this case (if any), except where stated explicitly. The performance characteristics of the stain(s) cited in this report were developed and its performance characteristic determined by the Dermatopathology Laboratory at [facility], directed by Dr. Collin Mckeon. These tests need not be, and therefore are not, approved by the [place] Food and Drug Administration. The tests are used for clinical purposes. Billing Codes Specimen Charges Stain Charges 71766 [address]809 1 1 4 2:41 PM SUPER[employer]PERING DERMATOPATHOLOGY LABORATORY Embedded Images 4 2:41 PM [employer] DERMATOPATHOLOGY LABORATORY Pathology/Cytology TISSUE SPECIMEN FROM SKIN / Unknown 01/22/2024 01/23/2024 10:18 AM SUPERVISOR FORMING AND TEMPERING Miscellaneous samples (specimen) TISSUE SPECIMEN FROM SKIN / Unknown 01/22/2024 01/23/2024 10:18 AM SUPERVISOR FORMING AND TEMPERING us Birdie Brito TRACK OILER-PRIVACY OFFICER LAB - PATHOLOGY/CY TOLOGY ORDERABLES Final Result DERMATOPATHOLOGY LABORATORY [facility] - Department of Dermatology [facility] Specialized Medicine [address] [place] [address], [address] [phone] documented in this encounter Visit Diagnoses Diagnosis Neoplasm of uncertain behavior of skin documented in this encounter
--- NOTE | 2024-07-15 22:57 | ED.ABDPAIN ---
HPI - Abdominal Pain General Chief Complaint: Abdominal Pain <Aminata Denis APRN - Last Filed: 07/16/24 02:23> Stated Complaint: tired, lethargic, abd pain <Aminata Denis APRN - Last Filed: 07/16/24 02:23> Time Seen by Provider: 07/15/24 21:39 <Aminata Denis APRN - Last Filed: 07/16/24 02:23> History of Present Illness HPI narrative: Patient is a 73-year-old male who presents to the ER with 3 episodes of chills over the past 4 weeks, weakness, painful joints, and abdominal pain. He reports earlier today he to urgent care because he had blood dripping from his penis. Patient reports his urinalysis did not indicate any abnormalities. He was advised by Urgent Care to come to the ER for further workup. At the time of examination patient reports the abdominal pain has subsided. He endorses a history of an abdominal ileus, fatty liver disease and a cardiac ablation couple of months ago. Patient denies any chest pain, shortness of breath, acute back pain. He does endorse a history of drinking alcohol but reports the last time he drank was on Friday, 4 days ago. <Aminata Denis APRN - Last Filed: 07/16/24 02:23> Related Data Home Medications: Home Medications Medication Instructions Recorded Confirmed Last Taken Type amlodipine 5 mg tablet 5 mg PO DAILY 10/27/19 10/27/19 Unknown History bupropion HCl 300 mg 24 hr tablet, 300 mg PO QAM 10/27/19 10/27/19 Unknown History extended release clonazepam 1 mg tablet 1 mg PO DAILY PRN 10/27/19 10/27/19 Unknown History gabapentin 300 mg capsule 300 mg PO TID 10/27/19 10/27/19 Unknown History lamotrigine 100 mg tablet 100 mg PO TID 10/27/19 10/27/19 Unknown History (Lamictal) lisinopril 10 mg tablet 10 mg PO DAILY 10/27/19 10/27/19 Unknown History meloxicam 15 mg tablet 15 mg PO DAILY 10/27/19 10/27/19 Unknown History metoprolol tartrate 25 mg tablet 25 mg PO DAILY 10/27/19 10/27/19 Unknown History omeprazole 20 mg capsule,delayed 20 mg PO DAILY 10/27/19 10/27/19 Unknown History release pravastatin 40 mg tablet 40 mg PO DAILY 10/27/19 10/27/19 Unknown History tramadol 50 mg tablet 50 mg PO Q6H PRN 10/27/19 10/27/19 Unknown History buspirone 15 mg tablet mg 07/15/24 Unknown History evolocumab 140 mg/mL subcutaneous mg subcut 07/15/24 Unknown History pen injector (Repatha SureClick) furosemide 20 mg tablet mg 07/15/24 Unknown History pregabalin 200 mg capsule mg 07/15/24 Unknown History semaglutide 0.25 mg or 0.5 mg (2 mg subcut 07/15/24 Unknown History mg/3 mL) subcutaneous pen injector (Ozempic) sildenafil (pulm.hypertension) 20 mg 07/15/24 Unknown History mg tablet tadalafil 5 mg tablet mg 07/15/24 Unknown History tamsulosin 0.4 mg capsule mg PO 07/15/24 Unknown History <Aminata Denis APRN - Last Filed: 07/16/24 02:23> Allergies/Adverse Reactions: Allergies Allergy/AdvReac Type Severity Reaction Status Date / Time citalopram Allergy Unknown Hives Verified 07/15/24 20:36 hydralazine Allergy Unknown Hives Verified 07/15/24 20:36 Penicillins Allergy Unknown hives Verified 07/15/24 20:36 <Aminata Denis APRN - Last Filed: 07/16/24 02:23> Review of Systems Review of Systems: All systems reviewed & are unremarkable except as noted in HPI and below <Aminata Denis APRN - Last Filed: 07/16/24 02:23> [facility] Family History Family History: Family History Sibling Diabetes mellitus Family history of mental disorder, Onset Age: 63 Family history of cardiovascular disease, Onset Age: 63 Acute myocardial infarction Family history of malignant neoplasm Mother Family history of mental disorder, Onset Age: 56 Other Family history of seizure disorder <Aminata Denis APRN - Last Filed: 07/16/24 02:23> Social History Social History: Social History Smoking status: Former smoker Smoking end date: 03/10/78 Alcohol intake: current <Aminata Denis APRN - Last Filed: 07/16/24 02:23> Exam Narrative: GENERAL: Well appearing, obese, non-toxic, in no acute distress. HEAD: Normocephalic, atraumatic. NECK: Supple. + cervical adenopathy RESPIRATORY: Airway patent, respirations nonlabored. Clear to auscultation bilaterally, no rales, rhonchi, wheezing. CARDIOVASCULAR: Regular rate and rhythm without murmurs, rubs, or gallops. Peripheral pulses 2+ and equal bilaterally. ABDOMINAL: Soft, nontender, nondistended, no hepatosplenomegaly. Normoactive BS. MUSCULOSKELETAL: Moves all extremities. Strength/ROM intact without gross deformities. SKIN: Warm, dry, normal color. No rashes. NEURO: A&O X3. Speech clear. Cranial nerves II-XII intact. No ataxic movements. PSYCHIATRIC: Appropriate mood and affect. Normal interaction. <Aminata Denis APRN - Last Filed: 07/16/24 02:23> Course HYDROELECTRIC MECHANIC/PA Physician Supervision I did review the chart , agree with management <Hardy Zavaleta MD - Last Filed: 07/16/24 03:44> Vital Signs Vital signs: Vital Signs Temperature 36.8 C 07/15/24 20:39 Pulse Rate 97 07/15/24 20:39 Respiratory Rate 20 07/15/24 20:39 Blood Pressure 115/59 L 07/15/24 20:39 Pulse Oximetry 95 07/15/24 20:39 Oxygen Delivery Room Air 07/15/24 20:39 Temperature 36.8 C 07/15/24 20:39 Pulse Rate 80 07/16/24 02:04 Respiratory Rate 14 07/16/24 02:04 Blood Pressure 126/60 07/16/24 02:04 Pulse Oximetry 100 07/16/24 02:04 Oxygen Delivery Room Air 07/15/24 20:39 <Aminata Denis APRN - Last Filed: 07/16/24 02:23> Vital Signs Temperature 36.8 C 07/15/24 20:39 Pulse Rate 97 07/15/24 20:39 Respiratory Rate 20 07/15/24 20:39 Blood Pressure 115/59 L 07/15/24 20:39 Pulse Oximetry 95 07/15/24 20:39 Oxygen Delivery Room Air 07/15/24 20:39 Temperature 36.8 C 07/15/24 20:39 Pulse Rate 80 07/16/24 02:04 Respiratory Rate 14 07/16/24 02:04 Blood Pressure 126/60 07/16/24 02:04 Pulse Oximetry 100 07/16/24 02:04 Oxygen Delivery Room Air 07/15/24 20:39 <Hardy Zavaleta MD - Last Filed: 07/16/24 03:44> MDM - Abdominal Pain MDM Narrative Medical decision making narrative: Patient is a 73-year-old male who presents to the ER with 3 episodes of chills over the past 4 weeks, weakness, painful joints, and abdominal pain. He reports earlier today he to urgent care because he had blood dripping from his penis. Patient reports his urinalysis did not indicate any abnormalities. He was advised by Urgent Care to come to the ER for further workup. At the time of examination patient reports the abdominal pain has subsided. He endorses a history of an abdominal ileus, fatty liver disease and a cardiac ablation couple of months ago. Patient denies any chest pain, shortness of breath, acute back pain. He does endorse a history of drinking alcohol but reports the last time he drank was on Friday, 4 days ago. Labs Ordered: CBC, CMP, lipase, TSH, proBNP, COVID/influenza/RSV swab, PTT, INR, troponin Imaging Ordered: CT abdomen pelvis Medications Ordered: 1 L normal saline IV bolus, Zofran 4 mg IV Results: Pt's CT scan indicates Cholelithiasis prominence of the common bile duct. Epiploic appendagitis. Diverticulosis without surrounding inflammatory change. Hepatomegaly. Borderline splenomegaly. Diagnosis: hypothyroidism, elevated liver enzymes, acute kidney injury Consults: gastroenterology Patient Education/Shared MDM: Results of lab work and imaging shared with patient. He endorses improvement of symptoms following IV bolus. Patient was able to pull up his blood work on his phone from an outside [facility]. In March 2024, patient's ALT, AST, alk-phos, bilirubin, and creatinine were all within normal range. 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 After extensive discussion between HYDROELECTRIC MECHANIC, pt and his , it was decided pt should stay in the hospital for further evaluation. Patient and his verbalized understanding and are in agreement with plan. 0200- Spoke with hospitalist, Dr. Gtz, who was in agreement with admitting pt to the hospital for further work-up and evaluation. She would like GI to be consulted. Dr. Gtz also advised pt get another 1L of NS. Additional lab orders were placed. Pt will be admitted to the med/surg floor. <Aminata Denis APRN - Last Filed: 07/16/24 02:23> Differential Diagnosis Differential diagnosis: Likely abdominal pain, diverticulitis, pancreatitis and small bowel obstruction <Aminata Denis APRN - Last Filed: 07/16/24 02:23> Lab Data Attestation: I reviewed the patient's lab results. <Aminata Denis APRN - Last Filed: 07/16/24 02:23> Result diagrams: 07/15/24 21:28 07/15/24 21:28 <Aminata Denis APRN - Last Filed: 07/16/24 02:23> Labs: Lab Results 07/15/24 07/15/24 07/16/24 Range/Units 21:28 23:29 02:37 WBC 14.6 H (4.5-10.0) K/mm3 RBC 4.60 (4.6-6.20) M/mm3 Hgb 14.0 (14.0-18.0) g/dL Hct 40.7 L (42.0-52.0) % MCV 88.5 (80-100) fl MCH 30.4 (26-34) pg MCHC 34.4 (32-36) g/dl RDW 14.7 H (11.5-14.5) % Plt Count 188 (150-375) k/mm3 MPV 9.3 (7.4-10.4) fl Immature Gran % (Auto) 0.6 H (0-0.5) % Neut % (Auto) 90.4 H (45.5-73.1) % Lymph % (Auto) 3.2 L (18.3-44.2) % [place] % (Auto) 5.6 (2.6-8.5) % Eos % (Auto) 0.1 (0-4.4) % Baso % (Auto) 0.1 L (0.2-1.2) % Lymph # (Auto) 0.46 L (0.9-3.2) K/mm3 [place] # (Auto) 0.8 H (0.1-0.6) K/mm3 Eos # (Auto) 0.0 (0-0.3) K/mm3 Baso # (Auto) 0.0 (0.0-0.1) K/mm3 Abs Immat Gran (auto) 0.09 H (0.00-0.031) K/mm3 Absolute Neuts (auto) 13.2 H (1.3-6.7) K/mm3 Absolute Nucleated RBC 0.000 (0.0-0.012) K/mm3 Nucleated RBC % 0.0 (0.0-0.2) % PT 15.8 H (11.1-14.7) Seconds INR 1.2 APTT 29.5 (22.3-36.8) Seconds Sodium 130 L (137-145) mmol/L Potassium 3.9 (3.4-5.0) mmol/L Chloride 92 L (98-107) mmol/L Carbon Dioxide 28 (22-30) mmol/L Anion Gap 10 (4-12) mmol/L BUN 16 (9-20) mg/dL Creatinine 1.73 H (0.7-1.3) mg/dL Estim Creat Clear Calc 50 ml/min Estimated GFR 39 L (59 - ) Glucose 112 H (65-110) mg/dL Lactic Acid 1.6 (0.7-2.0) mmol/L Calcium 9.2 (8.4-10.2) mg/dL Total Bilirubin 6.0 H 6.6 H (0.2-1.3) mg/dL Direct Bilirubin 3.3 H (0-0.3) mg/dL AST 233 H 217 H (17-59) U/L ALT 193 H 204 H (6-50) U/L Alkaline Phosphatase 232 H 192 H (38-126) U/L Troponin I < 0.012 (0.000-0.034) ng/mL NT-Pro-B Natriuret Pep 51 (19.9-100) pg/mL Total Protein 7.0 7.0 (6.3-8.2) g/dL Albumin 4.4 4.2 (3.5-5.1) g/dL Lipase 98 (23-300) U/L Procalcitonin 19.8 ng/mL TSH (Reflex) 7.320 H (0.465-4.68) uIU/mL Free T4 1.43 (0.78-2.19) ng/dL Total T3 2.97 H (0.97-1.69) NG/ML Urine Color Urine Appearance Urine pH Ur Specific [place] Urine Protein Urine Glucose (UA) Urine Ketones Ur Blood (Man) Urine Nitrate Urine Bilirubin Urine Urobilinogen Leukocyte Esterase Rfl Urine Opiates Screen Urine Methadone Screen Ur Barbiturates Screen Ur Phencyclidine Scrn Ur Amphetamine Screen U Benzodiazepines Scrn Urine Cocaine Screen U Cannabinoids Screen Ethyl Alcohol < 10 (<10) mg/dL Monoscreen Negative (Negative) Influenza A (RT-PCR) Negative (Negative) Influenza B (RT-PCR) Negative (Negative) RSV (RT-PCR) Negative (Negative) SARS-CoV-2 RNA (RT-PCR) Negative (Negative) 07/16/24 Range/Units 03:22 WBC (4.5-10.0) K/mm3 RBC (4.6-6.20) M/mm3 Hgb (14.0-18.0) g/dL Hct (42.0-52.0) % MCV (80-100) fl MCH (26-34) pg MCHC (32-36) g/dl RDW (11.5-14.5) % Plt Count (150-375) k/mm3 MPV (7.4-10.4) fl Immature Gran % (Auto) (0-0.5) % Neut % (Auto) (45.5-73.1) % Lymph % (Auto) (18.3-44.2) % [place] % (Auto) (2.6-8.5) % Eos % (Auto) (0-4.4) % Baso % (Auto) (0.2-1.2) % Lymph # (Auto) (0.9-3.2) K/mm3 [place] # (Auto) (0.1-0.6) K/mm3 Eos # (Auto) (0-0.3) K/mm3 Baso # (Auto) (0.0-0.1) K/mm3 Abs Immat Gran (auto) (0.00-0.031) K/mm3 Absolute Neuts (auto) (1.3-6.7) K/mm3 Absolute Nucleated RBC (0.0-0.012) K/mm3 Nucleated RBC % (0.0-0.2) % PT (11.1-14.7) Seconds INR APTT (22.3-36.8) Seconds Sodium (137-145) mmol/L Potassium (3.4-5.0) mmol/L Chloride (98-107) mmol/L Carbon Dioxide (22-30) mmol/L Anion Gap (4-12) mmol/L BUN (9-20) mg/dL Creatinine (0.7-1.3) mg/dL Estim Creat Clear Calc ml/min Estimated GFR (59 - ) Glucose (65-110) mg/dL Lactic Acid (0.7-2.0) mmol/L Calcium (8.4-10.2) mg/dL Total Bilirubin (0.2-1.3) mg/dL Direct Bilirubin (0-0.3) mg/dL AST (17-59) U/L ALT (6-50) U/L Alkaline Phosphatase (38-126) U/L Troponin I (0.000-0.034) ng/mL NT-Pro-B Natriuret Pep (19.9-100) pg/mL Total Protein (6.3-8.2) g/dL Albumin (3.5-5.1) g/dL Lipase (23-300) U/L Procalcitonin ng/mL TSH (Reflex) (0.465-4.68) uIU/mL Free T4 (0.78-2.19) ng/dL Total T3 (0.97-1.69) NG/ML Urine Color Pending Urine Appearance Pending Urine pH Pending Ur Specific [place] Pending Urine Protein Pending Urine Glucose (UA) Pending Urine Ketones Pending Ur Blood (Man) Pending Urine Nitrate Pending Urine Bilirubin Pending Urine Urobilinogen Pending Leukocyte Esterase Rfl Pending Urine Opiates Screen Pending Urine Methadone Screen Pending Ur Barbiturates Screen Pending Ur Phencyclidine Scrn Pending Ur Amphetamine Screen Pending U Benzodiazepines Scrn Pending Urine Cocaine Screen Pending U Cannabinoids Screen Pending Ethyl Alcohol (<10) mg/dL Monoscreen (Negative) Influenza A (RT-PCR) (Negative) Influenza B (RT-PCR) (Negative) RSV (RT-PCR) (Negative) SARS-CoV-2 RNA (RT-PCR) (Negative) <Aminata Denis, EDUCATIONAL MANAGER - Last Filed: 07/16/24 02:23> Lab Results 07/15/24 07/15/24 07/16/24 Range/Units 21:28 23:29 02:37 WBC 14.6 H (4.5-10.0) K/mm3 RBC 4.60 (4.6-6.20) M/mm3 Hgb 14.0 (14.0-18.0) g/dL Hct 40.7 L (42.0-52.0) % MCV 88.5 (80-100) fl MCH 30.4 (26-34) pg MCHC 34.4 (32-36) g/dl RDW 14.7 H (11.5-14.5) % Plt Count 188 (150-375) k/mm3 MPV 9.3 (7.4-10.4) fl Immature Gran % (Auto) 0.6 H (0-0.5) % Neut % (Auto) 90.4 H (45.5-73.1) % Lymph % (Auto) 3.2 L (18.3-44.2) % [place] % (Auto) 5.6 (2.6-8.5) % Eos % (Auto) 0.1 (0-4.4) % Baso % (Auto) 0.1 L (0.2-1.2) % Lymph # (Auto) 0.46 L (0.9-3.2) K/mm3 [place] # (Auto) 0.8 H (0.1-0.6) K/mm3 Eos # (Auto) 0.0 (0-0.3) K/mm3 Baso # (Auto) 0.0 (0.0-0.1) K/mm3 Abs Immat Gran (auto) 0.09 H (0.00-0.031) K/mm3 Absolute Neuts (auto) 13.2 H (1.3-6.7) K/mm3 Absolute Nucleated RBC 0.000 (0.0-0.012) K/mm3 Nucleated RBC % 0.0 (0.0-0.2) % PT 15.8 H (11.1-14.7) Seconds INR 1.2 APTT 29.5 (22.3-36.8) Seconds Sodium 130 L (137-145) mmol/L Potassium 3.9 (3.4-5.0) mmol/L Chloride 92 L (98-107) mmol/L Carbon Dioxide 28 (22-30) mmol/L Anion Gap 10 (4-12) mmol/L BUN 16 (9-20) mg/dL Creatinine 1.73 H (0.7-1.3) mg/dL Estim Creat Clear Calc 50 ml/min Estimated GFR 39 L (59 - ) Glucose 112 H (65-110) mg/dL Lactic Acid 1.6 (0.7-2.0) mmol/L Calcium 9.2 (8.4-10.2) mg/dL Total Bilirubin 6.0 H 6.6 H (0.2-1.3) mg/dL Direct Bilirubin 3.3 H (0-0.3) mg/dL AST 233 H 217 H (17-59) U/L ALT 193 H 204 H (6-50) U/L Alkaline Phosphatase 232 H 192 H (38-126) U/L Troponin I < 0.012 (0.000-0.034) ng/mL NT-Pro-B Natriuret Pep 51 (19.9-100) pg/mL Total Protein 7.0 7.0 (6.3-8.2) g/dL Albumin 4.4 4.2 (3.5-5.1) g/dL Lipase 98 (23-300) U/L Procalcitonin 19.8 ng/mL TSH (Reflex) 7.320 H (0.465-4.68) uIU/mL Free T4 1.43 (0.78-2.19) ng/dL Total T3 2.97 H (0.97-1.69) NG/ML Urine Color Urine Appearance Urine pH Ur Specific [place] Urine Protein Urine Glucose (UA) Urine Ketones Ur Blood (Man) Urine Nitrate Urine Bilirubin Urine Urobilinogen Leukocyte Esterase Rfl Urine Opiates Screen Urine Methadone Screen Ur Barbiturates Screen Ur Phencyclidine Scrn Ur Amphetamine Screen U Benzodiazepines Scrn Urine Cocaine Screen U Cannabinoids Screen Ethyl Alcohol < 10 (<10) mg/dL Monoscreen Negative (Negative) Influenza A (RT-PCR) Negative (Negative) Influenza B (RT-PCR) Negative (Negative) RSV (RT-PCR) Negative (Negative) SARS-CoV-2 RNA (RT-PCR) Negative (Negative) 07/16/24 Range/Units 03:22 WBC (4.5-10.0) K/mm3 RBC (4.6-6.20) M/mm3 Hgb (14.0-18.0) g/dL Hct (42.0-52.0) % MCV (80-100) fl MCH (26-34) pg MCHC (32-36) g/dl RDW (11.5-14.5) % Plt Count (150-375) k/mm3 MPV (7.4-10.4) fl Immature Gran % (Auto) (0-0.5) % Neut % (Auto) (45.5-73.1) % Lymph % (Auto) (18.3-44.2) % [place] % (Auto) (2.6-8.5) % Eos % (Auto) (0-4.4) % Baso % (Auto) (0.2-1.2) % Lymph # (Auto) (0.9-3.2) K/mm3 [place] # (Auto) (0.1-0.6) K/mm3 Eos # (Auto) (0-0.3) K/mm3 Baso # (Auto) (0.0-0.1) K/mm3 Abs Immat Gran (auto) (0.00-0.031) K/mm3 Absolute Neuts (auto) (1.3-6.7) K/mm3 Absolute Nucleated RBC (0.0-0.012) K/mm3 Nucleated RBC % (0.0-0.2) % PT (11.1-14.7) Seconds INR APTT (22.3-36.8) Seconds Sodium (137-145) mmol/L Potassium (3.4-5.0) mmol/L Chloride (98-107) mmol/L Carbon Dioxide (22-30) mmol/L Anion Gap (4-12) mmol/L BUN (9-20) mg/dL Creatinine (0.7-1.3) mg/dL Estim Creat Clear Calc ml/min Estimated GFR (59 - ) Glucose (65-110) mg/dL Lactic Acid (0.7-2.0) mmol/L Calcium (8.4-10.2) mg/dL Total Bilirubin (0.2-1.3) mg/dL Direct Bilirubin (0-0.3) mg/dL AST (17-59) U/L ALT (6-50) U/L Alkaline Phosphatase (38-126) U/L Troponin I (0.000-0.034) ng/mL NT-Pro-B Natriuret Pep (19.9-100) pg/mL Total Protein (6.3-8.2) g/dL Albumin (3.5-5.1) g/dL Lipase (23-300) U/L Procalcitonin ng/mL TSH (Reflex) (0.465-4.68) uIU/mL Free T4 (0.78-2.19) ng/dL Total T3 (0.97-1.69) NG/ML Urine Color Pending Urine Appearance Pending Urine pH Pending Ur Specific [place] Pending Urine Protein Pending Urine Glucose (UA) Pending Urine Ketones Pending Ur Blood (Man) Pending Urine Nitrate Pending Urine Bilirubin Pending Urine Urobilinogen Pending Leukocyte Esterase Rfl Pending Urine Opiates Screen Pending Urine Methadone Screen Pending Ur Barbiturates Screen Pending Ur Phencyclidine Scrn Pending Ur Amphetamine Screen Pending U Benzodiazepines Scrn Pending Urine Cocaine Screen Pending U Cannabinoids Screen Pending Ethyl Alcohol (<10) mg/dL Monoscreen (Negative) Influenza A (RT-PCR) (Negative) Influenza B (RT-PCR) (Negative) RSV (RT-PCR) (Negative) SARS-CoV-2 RNA (RT-PCR) (Negative) <Hardy Zavaleta MD - Last Filed: 07/16/24 03:44> Imaging Data Attestation: I personally reviewed and interpreted this imaging study as follows: <Aminata Denis APRN - Last Filed: 07/16/24 02:23> Radiologist's impression: ITS Impressions Abdomen/Pelvis CT 07/15/24 23:21 IMPRESSION: Cholelithiasis prominence of the common bile duct. Epiploic appendagitis. Diverticulosis without surrounding inflammatory change. Hepatomegaly. Borderline splenomegaly. <Aminata Denis APRN - Last Filed: 07/16/24 02:23> ITS Impressions Abdomen/Pelvis CT 07/15/24 23:21 IMPRESSION: Cholelithiasis prominence of the common bile duct. Epiploic appendagitis. Diverticulosis without surrounding inflammatory change. Hepatomegaly. Borderline splenomegaly. <Hardy Zavaleta MD - Last Filed: 07/16/24 03:44> Discharge Plan Discharge Clinical Impression: Elevated liver enzymes, Weakness, Acute kidney injury <Aminata Denis APRN - Last Filed: 07/16/24 02:23> Patient Disposition: Still a Patient <Aminata Denis APRN - Last Filed: 07/16/24 02:23> Condition: Stable <Aminata Denis APRN - Last Filed: 07/16/24 02:23> Instructions: Antibiotic Form <Aminata Denis APRN - Last Filed: 07/16/24 02:23> Patient Language: Wolof <Aminata Denis APRN - Last Filed: 07/16/24 02:23> Prescriptions: No Action tamsulosin 0.4 mg capsule PO furosemide 20 mg tablet buspirone 15 mg tablet tadalafil 5 mg tablet sildenafil (pulm.hypertension) 20 mg tablet pregabalin 200 mg capsule Repatha SureClick 140 mg/mL pen injector SUBCUT Ozempic 0.25 mg or 0.5 mg (2 mg/3 mL) pen injector SUBCUT clonazepam 1 mg tablet 1 mg PO DAILY PRN pravastatin 40 mg tablet 40 mg PO DAILY meloxicam 15 mg tablet 15 mg PO DAILY bupropion HCl 300 mg tablet extended release 24 hr 300 mg PO QAM lamotrigine [Lamictal] 100 mg tablet 100 mg PO TID omeprazole 20 mg capsule,delayed release(DR/EC) 20 mg PO DAILY amlodipine 5 mg tablet 5 mg PO DAILY metoprolol tartrate 25 mg tablet 25 mg PO DAILY lisinopril 10 mg tablet 10 mg PO DAILY gabapentin 300 mg capsule 300 mg PO TID tramadol 50 mg tablet 50 mg PO Q6H PRN <Aminata Denis APRN - Last Filed: 07/16/24 02:23> Follow-up/Referrals: UNKNOWN,DOCTOR [Primary Care Provider] - <Aminata Denis APRN - Last Filed: 07/16/24 02:23>
[2024-07-15 23:19] LABS: NT Pro B Type Natriuretic Pept 51 pg/mL (19.9-100); Troponin I < 0.012 ng/mL (0.000-0.034)
[2024-07-15 23:21] LABS: INR 1.2; Prothrombin Time 15.8 Seconds (11.1-14.7)
[2024-07-15 23:22] LABS: Partial Thromboplastin Time 29.5 Seconds (22.3-36.8)
[2024-07-15] MEDS: ONDANSETRON INJ 4 MG/2 ML VIAL IV PUSH (23:34)
--- NOTE | 2024-07-15 23:35 | PC.NURSE ---
care and report given to KLAUS Wang. all questions answered.
[2024-07-15] MEDS: SODIUM CHLORIDE 0.9% IV 1,000 ML 999 ML IV CONT (23:43)
[2024-07-16] VITALS (7 sets, daily range): BP systolic 101–144; BP diastolic 50–76; PULSE 71–107; RESP 14–22; TEMP 36.9–37.4; O2SAT 92–100; BMI 36.8
[2024-07-16 00:08] LABS: Influenza A QL RT-PCR Negative (Negative); Influenza B QL RT-PCR Negative (Negative); RSV RNA, RT-PCR Negative (Negative); SARS-CoV-2 RNA PCR Negative (Negative)
[2024-07-16 00:15] LABS: Free T4 Free Thyroxine Reflex 1.43 ng/dL (0.78-2.19)
--- NOTE | 2024-07-16 01:03 | ECG_ITS ---
Test Date: 2024-07-16 01:03:57 Measurements Intervals [place] Rate: 77 P: 41 OK: 277 QRS: -26 QRSD: 107 T: 44 QT: 370 QTc: 419 Interpretive Statements SINUS RHYTHM WITH FIRST DEGREE AV BLOCK BORDERLINE LEFT AXIS DEVIATION [QRS AXIS < -20] No previous ECG available for comparison Electronically Signed On 07-16-2024 12:12:31 CDT by Andrez Steiner M.D.
[2024-07-16 01:26] LABS: Total Triiodothyronine (T3) 2.97 NG/ML (0.97-1.69)
[2024-07-16 01:31] LABS: Negative Monotest Control Negative (Negative); Positive Monotest Control Positive (Positive)
[2024-07-16 01:36] LABS: Monoscreen Negative (Negative)
[2024-07-16] MEDS: SODIUM CHLORIDE 0.9% IV 1,000 ML 999 ML IV CONT (02:34)
[2024-07-16 02:54] LABS: Ethanol < 10 mg/dL (<10); Lactic Acid Reflex 1.6 mmol/L (0.7-2.0)
[2024-07-16 02:57] LABS: Alanine Aminotransferase 204 U/L (6-50); Albumin Level 4.2 g/dL (3.5-5.1); Alkaline Phosphatase 192 U/L (38-126); Aspartate Amino Transferase 217 U/L (17-59); Bilirubin Direct 3.3 mg/dL (0-0.3); Bilirubin,Total 6.6 mg/dL (0.2-1.3)
[2024-07-16 03:12] LABS: Procalcitonin 19.8 ng/mL
[2024-07-16 03:31] LABS: Add Urine Microscopic? YES; Appearance Urine Clear (Clear); Bacteria Urine None Seen /hpf; Bilirubin Urine 1+ (Negative); Blood Urine Negative (Negative); Color Urine Dark Yellow (Yellow); Glucose Urine UA Negative (Negative); Ketones Urine Negative (Negative); Leukocyte Esterase Ur Negative LEU/UL (Negative); Nitrate Urine Negative (Negative); Non Pathogenic Casts 0-2; Protein Urine 1+ mg/dL (Negative); RBC Urine 0-2 /hpf (0-2); Specific Grav Ur 1.031 (1.001-1.035); Squamous Epithelial Cell Urine Few /hpf (Few); WBC Urine 0-5 /hpf (0-3)
[2024-07-16 03:45] LABS: Amphetamine Screen Urine Negative (Negative); Barbiturate Screen Urine Negative (Negative); Benzodiazepines Screen Urine Negative (Negative); Cannabinoid Screen Urine Negative (Negative); Cocaine Screen Urine Negative (Negative); Methadone Screen Urine Negative (Negative); Opiate Screen Urine Negative (Negative); Phencyclidine Screen Urine Negative (Negative)
--- NOTE | 2024-07-16 04:52 | ADMGEN ---
This patient, Romario Bonds, was admitted to Medical Room 258-01. Patient/family oriented to hospital policies and general routines including ID bracelet, bed and alarms, visiting hours, pain management, procedures, bathroom and other care routines, personal items, smoking policy, room service/diet, and visiting hours. Information on how to activate the Rapid Response Team has been discussed. Patient/Family are encouraged to report perceived risks to care and to ask questions if they do not understand what they are told or what they should do.
[2024-07-16] MEDS: SODIUM CHLORIDE 0.9% IV 1,000 ML 125 ML IV CONT ×2 (06:40→16:30)
--- NOTE | 2024-07-16 07:30 | P.HP_ITS ---
H&P: HPI History of Present Illness Date/Time: 07/16/24 07:30 Chief Complaint: abd pain Narrative: 73-year-old male with PMH/o alcohol abuse,afib, s/p ablation, HLD, ED, BPH admitted for further work up for abd pain and elevated liver enzymes. He reports taht he had 3 episodes of chills over the past 4 weeks- describes them as shivering so hard, she was shaking , weakness, painful joints, and abdominal pain. He went to urgent care and was told to report to ed to [facility]. Patient reports his urinalysis did not indicate any abnormalities. He endorses a history of an abdominal ileus, fatty liver disease and a cardiac ablation couple of months ago. Patient denies any chest pain, shortness of breath, acute back pain. He is following with MD at [facility] and recently had fibroscan-he doesnot have any results yet. He used to drink daily- beer-but cut way down. NOw only drinks on a weekends but at tomes, can drink 6-8 beers or more. He said it never bothered him or interfered with his life and he never try to quit and was unable. He just drinks beer because it taste good and he enjoys it. Patient has an access to [facility] my chart: In March 2024, patient's ALT, AST, alk-phos, bilirubin, and creatinine were all within normal range. 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 IN ED: CBC, CMP, lipase, TSH, proBNP, COVID/influenza/RSV swab, PTT, INR, troponin He received 1 L normal saline IV bolus, Zofran 4 mg IV Results: Pt's CT scan indicates Cholelithiasis prominence of the common bile duct. Epiploic appendagitis. Diverticulosis without surrounding inflammatory change. Hepatomegaly. Borderline splenomegaly. GI consulted. Review of Systems Review of Systems: All systems reviewed & are unremarkable except as noted in HPI and below (h/p) [facility] Family History Family History Sibling Diabetes mellitus Family history of mental disorder, Onset Age: 63 Family history of cardiovascular disease, Onset Age: 63 Acute myocardial infarction Family history of malignant neoplasm Mother Family history of mental disorder, Onset Age: 56 Other Family history of seizure disorder Social History Social History Smoking status: Former smoker Alcohol intake: current Drinks per week: 30 Substance use type: does not use Do You Feel Safe in your Home?: Yes Lack of Transportation: No Lack of Food: Never True Current Housing: I Have Housing Concerned About Future Housing: No Difficulty Paying Gas/Electric Bills: No Difficulty Paying for Meds: No Currently Unemployed: No Education: Associate Degree Difficulty w/ Childcare or Family Care: No Spiritual care concerns: No Meds Home Medications and Allergies Home Medications Medication Instructions Recorded Confirmed Type amlodipine 5 mg tablet 5 mg PO DAILY 10/27/19 07/16/24 History bupropion HCl 300 mg 24 hr tablet, 300 mg PO QAM 10/27/19 07/16/24 History extended release clonazepam 1 mg tablet 1 mg PO HS PRN anxiety 10/27/19 07/16/24 History meloxicam 15 mg tablet 15 mg PO DAILY 10/27/19 07/16/24 History metoprolol tartrate 25 mg tablet 25 mg PO DAILY 10/27/19 07/16/24 History omeprazole 20 mg capsule,delayed 40 mg PO DAILY 10/27/19 07/16/24 History release buspirone 15 mg tablet 15 mg PO BID 07/15/24 07/16/24 History evolocumab 140 mg/mL subcutaneous 140 mg subcut .every other week 07/15/24 07/16/24 History pen injector (Ramandeep Springer) furosemide 20 mg tablet 20 mg PO DAILY 07/15/24 07/16/24 History pregabalin 200 mg capsule 200 mg PO Q12H 07/15/24 07/16/24 History semaglutide 0.25 mg or 0.5 mg (2 0.25 mg subcut WEEKLY 07/15/24 07/16/24 History mg/3 mL) subcutaneous pen injector (Ozempic) sildenafil (pulm.hypertension) 20 20 mg PO PRN PRN sexual activity 07/15/24 07/16/24 History mg tablet tadalafil 5 mg tablet 5 mg PO PRN PRN sexual activity 07/15/24 07/16/24 History tamsulosin 0.4 mg capsule 0.4 mg PO DAILY 07/15/24 07/16/24 History atorvastatin 20 mg tablet 20 mg PO DAILY 07/16/24 07/16/24 History carvedilol 3.125 mg tablet 3.125 mg PO BID 07/16/24 07/16/24 History duloxetine 60 mg capsule,delayed 60 mg PO DAILY 07/16/24 07/16/24 History release felodipine 10 mg tablet,extended 10 mg PO DAILY 07/16/24 07/16/24 History release 24 hr fluticasone propionate 50 1 spray intranasal Q12H 07/16/24 07/16/24 History mcg/actuation nasal spray,suspension lisinopril 40 mg tablet 40 mg PO DAILY 07/16/24 07/16/24 History potassium chloride 20 mEq 20 meq PO DAILY 07/16/24 07/16/24 History tablet,extended release (K-Tab) rivaroxaban 20 mg tablet 20 mg PO DAILY 07/16/24 07/16/24 History tizanidine 4 mg capsule 4 mg PO Q6H PRN muscle spasticity 07/16/24 07/16/24 History Allergies Allergy/AdvReac Type Severity Reaction Status Date / Time citalopram Allergy Unknown Hives Verified 07/15/24 20:36 hydralazine Allergy Unknown Hives Verified 07/15/24 20:36 Penicillins Allergy Unknown hives Verified 07/15/24 20:36 Vital Signs Vital Signs - 24 hr 07/15/24 20:39 07/16/24 02:04 07/16/24 04:38 Temperature 98.2 F Pulse Rate 97 80 71 Respiratory Rate 20 14 14 Blood Pressure 115/59 L 126/60 107/76 Pulse Oximetry 95 100 100 Oxygen Delivery Room Air 07/16/24 05:00 07/16/24 05:22 Temperature 98.4 F Pulse Rate 96 Respiratory Rate 20 Blood Pressure 114/58 L Pulse Oximetry 98 Oxygen Delivery Room Air Exam Const: General: comfortable Eyes: General: appearance normal, both eyes and all related structures Sclera: sclerae normal Neck: Neck: supple Resp: Effort & Inspection: normal respiratory effort Auscultation: clear to auscultation bilaterally Cardio: Rate: regular rate Rhythm: regular rhythm GI: GI Palp: Yes Soft to palpation Auscultation: normal bowel sounds Skin: General skin exam: normal color Neuro: Speech: normal speech Motor exam (neuro): 5/5 motor strength present throughout Sensory Exam: normal sensation Extrem: General: normal to inspection Psych: Mental Status: mental status grossly normal Affect: normal affect H&P: Results Labs Labs: Short CBC 07/15/24 Range/Units 21:28 WBC 14.6 H (4.5-10.0) K/mm3 Hgb 14.0 (14.0-18.0) g/dL Hct 40.7 L (42.0-52.0) % Plt Count 188 (150-375) k/mm3 BMP 07/15/24 21:28 Sodium 130 L Potassium 3.9 Chloride 92 L Carbon Dioxide 28 BUN 16 Creatinine 1.73 H Glucose 112 H Calcium 9.2 Cardiac Enzymes 07/15/24 Range/Units 21:28 Troponin I < 0.012 (0.000-0.034) ng/mL Liver Function 07/15/24 07/16/24 Range/Units 21:28 02:37 Total Bilirubin 6.0 H 6.6 H (0.2-1.3) mg/dL Direct Bilirubin 3.3 H (0-0.3) mg/dL AST 233 H 217 H (17-59) U/L ALT 193 H 204 H (6-50) U/L Alkaline Phosphatase 232 H 192 H (38-126) U/L Albumin 4.4 4.2 (3.5-5.1) g/dL Urine 07/16/24 Range/Units 03:22 Urine Color Dark yellow (Yellow) Urine Appearance Clear (Clear) Urine pH 6.0 (5.0-9.0) Ur Specific [place] 1.031 (1.001-1.035) Urine Protein 1+ H (Negative) mg/dL Urine Glucose (UA) Negative (Negative) mg/dL Assessment and Plan Assessment and plan (1) Alcohol abuse: Code(s): F10.10 - Alcohol abuse, uncomplicated Status: Acute (2) Hypothyroid: Qualifiers: Hypothyroidism type: unspecified Qualified Code(s): E03.9 - Hypothyroidism, unspecified Code(s): E03.9 - Hypothyroidism, unspecified Status: Acute (3) Hyponatremia: Code(s): E87.1 - Hypo-osmolality and hyponatremia Status: Acute (4) GERD (gastroesophageal reflux disease): Qualifiers: Esophagitis presence: without esophagitis Qualified Code(s): K21.9 - Gastro-esophageal reflux disease without esophagitis Code(s): K21.9 - Gastro-esophageal reflux disease without esophagitis Status: Acute (5) Elevated liver enzymes: Code(s): R74.8 - Abnormal levels of other serum enzymes Status: Acute (6) Acute kidney injury: Code(s): N17.9 - Acute kidney failure, unspecified Status: Acute (7) S/P ablation of atrial fibrillation: Code(s): Z98.890 - Other specified postprocedural states; Z86.79 - Personal history of other diseases of the circulatory system Status: Acute Plan 73-year-old male with PMH/o alcohol abuse,afib, s/p ablation, HLD, ED, BPH admitted for further work up for abd pain and elevated liver enzymes. He was seen in urgent care and was advised to come to ed (his UA was reportedly normal) He endorses a history of an abdominal ileus, fatty liver disease and a cardiac ablation couple of months ago. Patient denies any chest pain, shortness of breath, acute back pain. He is following with MD at [facility] and recently had fibroscan-he doesnot have any results yet. He drinks beer mostly during the weekend. Patient has an access to [facility] my chart: In March 2024, patient's ALT, AST, alk-phos, bilirubin, and creatinine were all within normal range. 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 scan indicates Cholelithiasis prominence of the common bile duct. Epiploic appendagitis. Diverticulosis without surrounding inflammatory change. Hepatomegaly. Borderline splenomegaly. - GI consulted - will continue IV fluids, pain and nausea control -trend daily labs -BC collected Chronic problems afib-will continue coreg and xarelto htn hld-continue statin bph- flomax Pt is full code DVT prophylaxis_ continue xarelto Quality VTE Prophylaxis VTE prophylaxis: pharmacologic ordered Hospitalist MIPS Advance Care Plan I have confirmed that the patient's Advanced Care Plan is present, code status is documented, or surrogate decision maker is listed in patient medical record.: Yes Medication Reconciliation I have utilized all available resources to obtain, update and review the patients current medications (includes all prescriptions, OTC, herbals, cannabis, and nutritional supplements).: Yes
[2024-07-16] MEDS: ONDANSETRON INJ 4 MG/2 ML VIAL IV PUSH ×2 (08:18→16:24)
--- NOTE | 2024-07-16 08:20 | P.CONGI_ITS ---
Assessment and Plan Assessment and plan (1) Elevated liver enzymes: Code(s): R74.8 - Abnormal levels of other serum enzymes Status: Acute (2) Alcohol abuse: Code(s): F10.10 - Alcohol abuse, uncomplicated Status: Acute (3) Abnormal digestive system diagnostic imaging: Code(s): R93.3 - Abnormal findings on diagnostic imaging of other parts of digestive tract Status: Acute (4) Scleral icterus: Code(s): R17 - Unspecified jaundice Status: Acute (5) Nausea: Code(s): R11.0 - Nausea Status: Acute (6) GERD (gastroesophageal reflux disease): Qualifiers: Esophagitis presence: without esophagitis Qualified Code(s): K21.9 - Gastro-esophageal reflux disease without esophagitis Code(s): K21.9 - Gastro-esophageal reflux disease without esophagitis Status: Acute (7) Decreased appetite: Code(s): R63.0 - Anorexia Status: Acute (8) Early satiety: Code(s): R68.81 - Early satiety Status: Acute (9) Weight loss: Code(s): R63.4 - Abnormal weight loss Status: Acute (10) Hyponatremia: Code(s): E87.1 - Hypo-osmolality and hyponatremia Status: Acute (11) Hypothyroid: Qualifiers: Hypothyroidism type: unspecified Qualified Code(s): E03.9 - Hypothyroidism, unspecified Code(s): E03.9 - Hypothyroidism, unspecified Status: Acute Plan 1. Elevated LFT's/hepatic steatosis/abnormal imaging digestive/sclera icterus/ETOH abuse: CT this admission showed gallstones with prominent CBD, hepatomegaly with borderline splenomegaly and epiploic appendagitis. Patient normally sees Dr. Ortiz for GI and liver care at [facility]. He states that he was previously diagnosed with hepatic steatosis and his liver workup was unremarkable. Patient denies any prior history of elevated LFTs. Patient with history of EtOH abuse. He states that in the past he would drink a max of 10 beers nightly but since being diagnosed with hepatic steatosis he states that he only has a few beers on the weekends. Patient complains of a chronic illness over the past 4-5 months but symptoms have been intermittent in but he states that his symptoms have been more frequent and problematic over the past 4 weeks. Prior to admission he was experiencing chills, weakness, joint pain and abdominal pain. He denies any measurable fever. He was previously having a constant stabbing umbilical pain which has since resolved. Since admission total bilirubin 6.0-->6.6, AST 233-->217, ALT 193-->204, Alk Phos 232-->192, lipase 98, direct bilirubin 3.3, INR 1.2. Patient with mild scleral icterus. DDx: Biliary obstruction versus acute viral etiology versus other hepatic etiology * MRCP ordered to further evaluate for obstructive process * Labs ordered to rule out acute viral etiology * continue to trend LFT's 2. Nausea/umbilical abdominal pain/GERD/decreased appetite/early satiety/weight loss: Patient states that over the past 4 weeks he has been experiencing more frequent episodes of nausea without vomiting. Prior to admission he was having a stabbing constant umbilical pain that had no correlation with food intake or bowel movements. Abdominal pain has since resolved. Prior to admission he was on omeprazole 40 mg daily and states that his reflux was well controlled. He admits to a decreased appetite, early satiety, and a 25 lb weight loss. Patient states that the symptoms were occurring prior to him starting Ozempic last Friday. He denies any worsening of symptoms since starting Ozempic. The patient's last EGD performed at [facility] approximately 3 months ago was normal, endoscopy records not available today's visit. * MRCP ordered along with labs to rule out acute infectious etiology * continue PPI daily * Continue supportive care with antiemetics and pain management * If symptoms persist may consider gastric emptying study 3. Constipation: Per patient normal colonoscopy approximately 3 months ago. Patient admits to chronic constipation but states that if he drinks a beer he will have a normal formed bowel movement. He has tried no [id number] treatments for constipation. No bowel movement since admission. * MiraLax daily and will adjust dosing frequency according to symptoms and response. 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 Hyponatremia/hypothyroidism: Labs this admission showed sodium 130, TSH 7.320, T4 1.43, T3 2.97. Hypothyroidism may be a contributing cause to his chronic constipation. * Primary care team to manage Thank you very much for allowing me to share in the care of this very nice patient. This report may have been done utilizing a voice recognition system. Attempts have been made to correct errors. However, there may be uncorrected grammatical, spelling, and recognition errors present. GI Consult Note Consult date/time: 07/16/24 08:20 Reason for consult: Elevated LFT's HPI: Romario Bonds is a pleasant 73 year old male with PMSH of HTN, HLD, depression, anxiety, GERD, ED, Hx of ETOH abuse, HONORIO with CPAP use. He presented to the emergency room yesterday with complaints of chills, weakness, joint pain and abdominal pain x4 weeks. He was also seen at urgent care yesterday with complaints of blood coming from his penis. GI was consulted for elevated LFTs. Patient states that he normally sees Dr. Ortiz with [facility]. He states that he carries a diagnosis of fatty liver but previous liver workup was unremarkable and he denies any prior history of elevated LFT's patient states that he has been ill intermittently for the past 4-5 months but his symptoms have become more severe and problematic over the past 4 weeks. Prior to admission he was having a stabbing umbilical pain that was constant but has since resolved. His abdominal pain had no correlation with food intake or bowel movements. He admits to intermittent nausea without vomiting. He denies any known precipitating factors or triggers to nausea. He complains of decreased appetite, early satiety, and weight loss. Patient states that he had lost approximately 25 lb over the past few months. He recently started Ozempic last Friday but states that he has noticed no change in severity of symptoms since starting medication. Prior to admission the patient states that he was also having chills without any measurable fever, joint pain and weakness. Denies any nocturnal symptoms. Denies any sick contacts. He denies any abdominal bloating, odynophagia, dysphagia, reflux well controlled on omeprazole 40 mg daily, denies regurgitation. He admits to chronic constipation but states that if he drinks a beer he will have a normal formed bowel movement. He has tried no [id number] medications for his constipation. Denies diarrhea, hematochezia, or melena. He has been on meloxicam daily for many years and is also on daily Xarelto. Patient states that in the past he would drink a max of 10 beers nightly but since he was diagnosed with fatty liver he only has a few beers socially on the weekends. He denies any tobacco or marijuana use PE family history negative for CRC or IBD. ENDOSCOPY HISTORY: Per patient he had an EGD and colonoscopy performed approximately 3 months ago at [facility], which he states were both normal LABS AND STOOL STUDIES: Labs 07/15/2024: WBCs 15, HGB 14, HCT 41, MCV 89, platelets 188, INR 1.2 Sodium 130, potassium 3.9, BUN 16, creatinine 1.73, GFR 39, calcium 9.2, lactic acid 1.6 Total bilirubin 6.6, direct bilirubin 3.3, AST 217, ALT 204, alkaline phosphatase 192, albumin 4.2 Lipase 98, troponin negative, TSH 7.320, T4 1.43, T3 2.97 IMAGING: CT abd/pelvis w/contrast 07/15/2024: IMPRESSION: Cholelithiasis prominence of the common bile duct. Epiploic appendagitis. Diverticulosis without surrounding inflammatory change. Hepatomegaly. Borderline splenomegaly. Chest Xray 07/15/2024: IMPRESSION: Nonspecific, nonobstructive bowel gas pattern. If clinical suspicion persists, cross-sectional imaging (contrast enhanced CT examination of the abdomen and pelvis) is suggested for further evaluation. Review of Systems 2 Constitutional: Constitutional: Reports as per HPI, Reports chills and Reports weakness ENT: Reports as per HPI Cardiovascular: Cardiovascular: Reports as per HPI, Denies chest pain, Denies leg edema and Denies dyspnea Respiratory: Respiratory: Denies cough and Denies dyspnea Gastrointestinal: Gastrointestinal: Reports as per HPI Musculoskeletal: Musculoskeletal: Reports as per HPI Integumentary/Breasts: Skin/Breast: Reports as per HPI Psychiatric: Psychiatric: Reports as per HPI Endocrine: Endocrine: Reports no additional endocrine complaints Hematologic/Lymphatic: Hematologic/Lymphatic: Reports no additional hematologic/lymphatic complaints [facility] Family History Family History Sibling Diabetes mellitus Family history of mental disorder, Onset Age: 63 Family history of cardiovascular disease, Onset Age: 63 Acute myocardial infarction Family history of malignant neoplasm Mother Family history of mental disorder, Onset Age: 56 Other Family history of seizure disorder Social History Social History Smoking status: Former smoker Alcohol intake: current Drinks per week: 30 Substance use type: does not use Do You Feel Safe in your Home?: Yes Lack of Transportation: No Lack of Food: Never True Current Housing: I Have Housing Concerned About Future Housing: No Difficulty Paying Gas/Electric Bills: No Difficulty Paying for Meds: No Currently Unemployed: No Education: Associate Degree Difficulty w/ Childcare or Family Care: No Spiritual care concerns: No Meds Home Medications and Allergies Home Medications Medication Instructions Recorded Confirmed Type amlodipine 5 mg tablet 5 mg PO DAILY 10/27/19 07/16/24 History bupropion HCl 300 mg 24 hr tablet, 300 mg PO QAM 10/27/19 07/16/24 History extended release clonazepam 1 mg tablet 1 mg PO HS PRN anxiety 10/27/19 07/16/24 History meloxicam 15 mg tablet 15 mg PO DAILY 10/27/19 07/16/24 History metoprolol tartrate 25 mg tablet 25 mg PO DAILY 10/27/19 07/16/24 History omeprazole 20 mg capsule,delayed 40 mg PO DAILY 10/27/19 07/16/24 History release buspirone 15 mg tablet 15 mg PO BID 07/15/24 07/16/24 History evolocumab 140 mg/mL subcutaneous 140 mg subcut .every other week 07/15/24 07/16/24 History pen injector (Ramandeep Springer) furosemide 20 mg tablet 20 mg PO DAILY 07/15/24 07/16/24 History pregabalin 200 mg capsule 200 mg PO Q12H 07/15/24 07/16/24 History semaglutide 0.25 mg or 0.5 mg (2 0.25 mg subcut WEEKLY 07/15/24 07/16/24 History mg/3 mL) subcutaneous pen injector (Ozempic) sildenafil (pulm.hypertension) 20 20 mg PO PRN PRN sexual activity 07/15/24 07/16/24 History mg tablet tadalafil 5 mg tablet 5 mg PO PRN PRN sexual activity 07/15/24 07/16/24 History tamsulosin 0.4 mg capsule 0.4 mg PO DAILY 07/15/24 07/16/24 History atorvastatin 20 mg tablet 20 mg PO DAILY 07/16/24 07/16/24 History carvedilol 3.125 mg tablet 3.125 mg PO BID 07/16/24 07/16/24 History duloxetine 60 mg capsule,delayed 60 mg PO DAILY 07/16/24 07/16/24 History release felodipine 10 mg tablet,extended 10 mg PO DAILY 07/16/24 07/16/24 History release 24 hr fluticasone propionate 50 1 spray intranasal Q12H 07/16/24 07/16/24 History mcg/actuation nasal spray,suspension lisinopril 40 mg tablet 40 mg PO DAILY 07/16/24 07/16/24 History potassium chloride 20 mEq 20 meq PO DAILY 07/16/24 07/16/24 History tablet,extended release (K-Tab) rivaroxaban 20 mg tablet 20 mg PO DAILY 07/16/24 07/16/24 History tizanidine 4 mg capsule 4 mg PO Q6H PRN muscle spasticity 07/16/24 07/16/24 History Allergies Allergy/AdvReac Type Severity Reaction Status Date / Time citalopram Allergy Unknown Hives Verified 07/15/24 20:36 hydralazine Allergy Unknown Hives Verified 07/15/24 20:36 Penicillins Allergy Unknown hives Verified 07/15/24 20:36 Vital Signs Vital Signs - 24 hr 07/15/24 20:39 07/16/24 02:04 07/16/24 04:38 Temperature 98.2 F Pulse Rate 97 80 71 Respiratory Rate 20 14 14 Blood Pressure 115/59 L 126/60 107/76 Pulse Oximetry 95 100 100 Oxygen Delivery Room Air 07/16/24 05:00 07/16/24 05:22 Temperature 98.4 F Pulse Rate 96 Respiratory Rate 20 Blood Pressure 114/58 L Pulse Oximetry 98 Oxygen Delivery Room Air Exam 2 Const: General: cooperative, healthy appearing, comfortable, no acute distress, well developed and obese Orientation/consciousness: oriented to person, oriented to place, oriented to time and patient oriented x3 HENMT: Head: normal to inspection, normocephalic and atraumatic Mouth: Yes Normal oral and palatal mucosa present and Yes moist mucous membranes Eyes: General: appearance normal, both eyes and all related structures C onjunctivae: conjunctivae normal Sclera: sclerae normal Pupils: Equal, round and reactive pupils present Neck: Neck: normal visual inspection Chest: Chest palpation & inspection: normal inspection of the chest Resp: Effort & Inspection: normal respiratory effort and able to speak in complete sentences Auscultation: clear to auscultation bilaterally Cardio: Jugular venous distension: no JVD Rate: regular rate Rhythm: r egular rhythm Heart sounds: S1 normal heart sound present and S2 normal heart sound present GI: Inspection: normal to inspection GI Palp: Yes Soft to palpation, No Tenderness to palpation present (GI), No Guarding due to palpation present (GI) and Yes No hepatosplenomegaly present Auscultation: normal bowel sounds R ectal Exam: deferred Skin: General skin exam: normal color and no rashes or lesions noted Neuro: General: oriented to person, oriented to place, oriented to time and patient oriented x3 Cranial nerves: Yes Equal, round and reactive pupils present Speech: normal speech Extrem: General: normal to inspection and no clubbing, cyanosis or edema Psych: Appearance: grossly normal and well kempt Affect: normal affect Results Labs 07/15/24 21:28 07/15/24 21:28 Labs: Short CBC 07/15/24 Range/Units 21:28 WBC 14.6 H (4.5-10.0) K/mm3 Hgb 14.0 (14.0-18.0) g/dL Hct 40.7 L (42.0-52.0) % Plt Count 188 (150-375) k/mm3 BMP 07/15/24 21:28 Sodium 130 L Potassium 3.9 Chloride 92 L Carbon Dioxide 28 BUN 16 Creatinine 1.73 H Glucose 112 H Calcium 9.2 Cardiac Enzymes 07/15/24 Range/Units 21:28 Troponin I < 0.012 (0.000-0.034) ng/mL Liver Function 07/15/24 07/16/24 Range/Units 21:28 02:37 Total Bilirubin 6.0 H 6.6 H (0.2-1.3) mg/dL Direct Bilirubin 3.3 H (0-0.3) mg/dL AST 233 H 217 H (17-59) U/L ALT 193 H 204 H (6-50) U/L Alkaline Phosphatase 232 H 192 H (38-126) U/L Albumin 4.4 4.2 (3.5-5.1) g/dL Urine 07/16/24 Range/Units 03:22 Urine Color Dark yellow (Yellow) Urine Appearance Clear (Clear) Urine pH 6.0 (5.0-9.0) Ur Specific Coden 1.031 (1.001-1.035) Urine Protein 1+ H (Negative) mg/dL Urine Glucose (UA) Negative (Negative) mg/dL
[2024-07-16 11:26] LABS: Hepatitis B Surface Antigen Negative (Negative)
[2024-07-16 11:32] LABS: HAV RESULT Negative (Negative); Hepatitis B Core IgM Result Negative (Negative)
[2024-07-16 11:43] LABS: Hepatitis C Virus Antibody Negative (Negative)
[2024-07-16] MEDS: amLODIPine BESYLATE 5 MG TABLET PO (14:16)
[2024-07-16] MEDS: FELODIPINE 5 MG TAB CR 10 MG PO (14:17)
[2024-07-16] MEDS: DULoxetine HCL 60 MG CAPSULE.DR PO (14:17)
[2024-07-16] MEDS: PREGABALIN (*CRX) 50 MG CAPSULE 200 MG PO ×2 (14:17→20:11)
[2024-07-16] MEDS: PANTOPRAZOLE 40 MG TABLET PO (14:17)
[2024-07-16] MEDS: ATORVASTATIN 20 MG TABLET PO (14:17)
[2024-07-16] MEDS: TAMSULOSIN HCL 0.4 MG CAPSULE PO (14:17)
[2024-07-16] MEDS: buPROPion HCL XL (24 HR) 150 MG TABCR 300 MG PO (14:17)
[2024-07-16] MEDS: clonazePAM (*CRX) 0.5 MG TABLET 1 MG PO (16:23)
[2024-07-16] MEDS: carvediloL 3.125 MG TABLET PO (18:07)
[2024-07-16] MEDS: RIVAROXABAN 20 MG TABLET PO (18:07)
[2024-07-16] MEDS: busPIRone HCL 5 MG TABLET 15 MG PO (20:11)
[2024-07-16] MEDS: FLUTICASONE PROPIONATE 0.05% NA SPR 16 GM BTL (*BKC) 1 SPRAY NASAL (20:11)
--- NOTE | 2024-07-17 01:06 | PM.EVENT ---
Event Note Event Note Event Note: labs return patient was noted to have Gram-positive cocci in aerobic bottles. The patient has elevated LFTs and was reporting subjective fevers at home as well that being leukocytosis. which could be due to infection versus chronic liver failure/alcoholism. He is undergoing MRCP in a.m. to rule gallbladder pathology. Patient's case is concerning for possible acute infection. Given possible GI cause will place patient on Rocephin and Flagyl in addition to vancomycin. will check MRSA nasal swab to see if patient has chronic colonization as well. Will monitor blood cultures.
[2024-07-17] MEDS: SODIUM CHLORIDE 0.9% IV 1,000 ML 125 ML IV CONT ×2 (01:20→13:39)
[2024-07-17] MEDS: metroNIDAZOLE 500 MG/ISO 100ML 500 MG/100 ML BAG 100 MG IVPB ×3 (01:55→17:21)
[2024-07-17 02:49] LABS: MRSA (PCR) NOT DETECTED (NOT DETECTE)
[2024-07-17] MEDS: VANCOMYCIN 2,000 MG/NS 500 ML 2,000 MG/500 ML BAG 250 MG IVPB (02:53)
[2024-07-17 04:27] VITALS: BP 110/53; PULSE 77; RESP 20; TEMP 37; O2SAT 96
[2024-07-17 05:26] LABS: Hematocrit 35.2 % (42.0-52.0); Hemoglobin 11.8 g/dL (14.0-18.0); Mean Corpuscular HGB Conc 33.5 g/dl (32-36); Mean Corpuscular Hemoglobin 30.3 pg (26-34); Mean Corpuscular Volume 90.5 fl (80-100); Mean Platelet Volume 9.8 fl (7.4-10.4); Platelet Count Result 147 k/mm3 (150-375); Red Blood Count 3.89 M/mm3 (4.6-6.20); Red Cell Distribution Width 15.6 % (11.5-14.5); White Blood Count 12.3 K/mm3 (4.5-10.0)
[2024-07-17 05:34] LABS: Alanine Aminotransferase 277 U/L (6-50); Albumin Level 3.3 g/dL (3.5-5.1); Alkaline Phosphatase 158 U/L (38-126); Anion Gap 11 mmol/L (4-12); Aspartate Amino Transferase 238 U/L (17-59); Blood Urea Nitrogen 26 mg/dL (9-20); Calcium 7.9 mg/dL (8.4-10.2); Carbon Dioxide 20 mmol/L (22-30); Chloride 100 mmol/L (98-107); Estimated CRCL calculation 48 ml/min; Estimated Glomerular Filt Rate 37; Glucose 87 mg/dL (65-110); Potassium 3.8 mmol/L (3.4-5.0); Sodium 131 mmol/L (137-145)
[2024-07-17 08:03] LABS: CMV IgM Antibody <30.00 AU/mL
--- NOTE | 2024-07-17 09:34 | P.PNIM_ITS ---
Progress Note: A&P Assessment and Plan (1) Alcohol abuse: Code(s): F10.10 - Alcohol abuse, uncomplicated Status: Acute (2) Hypothyroid: Qualifiers: Hypothyroidism type: unspecified Qualified Code(s): E03.9 - Hypothyroidism, unspecified Code(s): E03.9 - Hypothyroidism, unspecified Status: Acute (3) Hyponatremia: Code(s): E87.1 - Hypo-osmolality and hyponatremia Status: Acute (4) GERD (gastroesophageal reflux disease): Qualifiers: Esophagitis presence: without esophagitis Qualified Code(s): K21.9 - Gastro-esophageal reflux disease without esophagitis Code(s): K21.9 - Gastro-esophageal reflux disease without esophagitis Status: Acute (5) Elevated liver enzymes: Code(s): R74.8 - Abnormal levels of other serum enzymes Status: Acute (6) Acute kidney injury: Code(s): N17.9 - Acute kidney failure, unspecified Status: Acute (7) S/P ablation of atrial fibrillation: Code(s): Z98.890 - Other specified postprocedural states; Z86.79 - Personal history of other diseases of the circulatory system Status: Acute Plan 73-year-old male with PMH/o alcohol abuse,afib, s/p ablation, HLD, ED, BPH admitted for further work up for abd pain and elevated liver enzymes. 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, had EGD about 3 months ago. He was drinking pretty much daily but decreased since he was told about liver disease. He mostly drink on a weekend now but can drink 3-8 beers at a time. - GI consulted, surgery consulted - elevated liver enzymes, bilirubin 6 - CT scan showed cholelithiasis and prominent bile duct - Leukocytosis 14.6->12.3 - MRCP scheduled to evaluate biliary system -hepatitis viral negative. - will continue IV fluids, pain and nausea control -trend daily labs -BC collected 07/17 BC Gram-positive cocci in aerobic bottles. Given possible GI cause, patient was started on Rocephin and Flagyl in addition to vancomycin. MRSA was checked- negative (5/10) -repeat BC -ordered surgery onboard Chronic problems afib-will continue coreg and xarelto htn hld-continue statin bph- flomax Pt is full code DVT prophylaxis_ continue xarelto Time Spent With Patient Time with patient: 25 - 35 minutes Subjective Date/time seen: 07/17/24 09:34 Interval history: 73-year-old male with PMH/o alcohol abuse,afib, s/p ablation, HLD, ED, BPH admitted for further work up for abd pain and elevated liver enzymes. BCx + GP and started on abx GI, surgery following MRCP ordered to r/o suzi. Review of Systems Review of Systems: All systems reviewed & are unremarkable except as noted in HPI and below (h/p) Exam Const: General: comfortable Eyes: General: appearance normal, both eyes and all related structures Sclera: sclerae normal Neck: Neck: supple Resp: Effort & Inspection: normal respiratory effort Auscultation: clear to auscultation bilaterally Cardio: Rate: regular rate Rhythm: regular rhythm GI: Auscultation: normal bowel sounds Skin: General skin exam: normal color Neuro: Speech: normal speech Motor exam (neuro): 5/5 motor strength present throughout Sensory Exam: normal sensation Extrem: General: normal to inspection Psych: Mental Status: mental status grossly normal Affect: normal affect Objective Data Vital Signs Vital Signs: Vital Signs - 24 hr 07/16/24 13:46 07/16/24 16:36 07/16/24 18:07 Temperature 98.5 F 99.1 F Pulse Rate 77 91 107 H Respiratory Rate 18 22 H Blood Pressure 134/64 144/67 H Pulse Oximetry 97 94 Oxygen Delivery 07/16/24 19:59 07/16/24 20:00 07/17/24 04:27 Temperature 99.3 F 98.6 F Pulse Rate 93 77 Respiratory Rate 20 20 Blood Pressure 101/50 L 110/53 L Pulse Oximetry 92 96 Oxygen Delivery Room Air Intake/Output Intake/Output: Intake & Output 07/14/24 07/15/24 07/16/24 07/17/24 23:59 23:59 23:59 23:59 Intake Total 3480 1240 Output Total 1250 Balance 2230 1240 Meds/Results Medications: Active Medications Generic Name Dose Route Start Last Admin Trade Name Freq PRN Reason Stop Dose Admin Amlodipine Besylate 5 mg 07/16/24 12:55 07/16/24 14:16 Amlodipine Besylate 5 Mg Tablet PO 5 mg DAILY OLGA Administration Atorvastatin Calcium 20 mg 07/16/24 12:55 07/16/24 14:17 Atorvastatin 20 Mg Tablet PO 20 mg DAILY OLGA Administration Bupropion HCl 300 mg 07/16/24 12:55 07/16/24 14:17 Bupropion Hcl Xl (24 Hr) 150 Mg Tabcr PO 300 mg QAM OLGA Administration Buspirone HCl 15 mg 07/16/24 21:00 07/16/24 20:11 Buspirone Hcl 5 Mg Tablet PO 15 mg Q12HR OLGA Administration Carvedilol 3.125 mg 07/16/24 17:00 07/16/24 18:07 Carvedilol 3.125 Mg Tablet PO 3.125 mg BIDWM OLGA Administration Clonazepam 1 mg 07/16/24 12:34 07/16/24 16:23 Clonazepam (*Crx) 0.5 Mg Tablet PO 1 mg HS PRN Administration anxiety Duloxetine HCl 60 mg 07/16/24 12:55 07/16/24 14:17 Duloxetine Hcl 60 Mg Capsule.Dr PO 60 mg DAILY OLGA Administration Felodipine 10 mg 07/16/24 12:55 07/16/24 14:17 Felodipine 5 Mg Tab Cr PO 08/16/24 12:54 10 mg DAILY OLGA Administration Fluticasone Propionate 1 spray 07/16/24 21:00 07/16/24 20:11 Fluticasone Propionate 0.05% Na Spr 16 Gm Btl (*Bkc) NASAL 1 spray Q12HR OLGA Administration Sodium Chloride 1,000 mls @ 125 mls/hr 07/16/24 02:25 07/17/24 01:20 Normal Saline Iv IV CONT 125 mls/hr .Q8H OLGA Administration Ceftriaxone Sodium 1 gm in 50 mls @ 100 mls/hr 07/17/24 01:00 07/17/24 01:20 Rocephin 1 Gm/Ns 50 Ml IVPB 100 mls/hr QHS OLGA Administration Metronidazole 500 mg in 100 mls @ 100 mls/hr 07/17/24 01:00 07/17/24 01:55 Flagyl 500 Mg/Iso Soln 100 Ml IVPB 100 mls/hr Q8H OLGA Administration Ondansetron HCl 4 mg 07/16/24 02:21 07/16/24 16:24 Ondansetron Inj 4 Mg/2 Ml Vial IV PUSH 4 mg Q4H PRN Administration Nausea Pantoprazole Sodium 40 mg 07/16/24 12:55 07/16/24 14:17 Pantoprazole 40 Mg Tablet PO 08/16/24 12:54 40 mg DAILY OLGA Administration Pregabalin 200 mg 07/16/24 12:35 07/16/24 20:11 Pregabalin (*Crx) 50 Mg Capsule PO 200 mg Q12HR OLGA Administration Rivaroxaban 20 mg 07/16/24 18:00 07/16/24 18:07 Rivaroxaban 20 Mg Tablet PO 20 mg QPM OLGA Administration Tamsulosin HCl 0.4 mg 07/16/24 12:55 07/16/24 14:17 Tamsulosin Hcl 0.4 Mg Capsule PO 0.4 mg DAILY OLGA Administration Tizanidine HCl 4 mg 07/16/24 12:44 Tizanidine Hcl 4 Mg Tablet PO Q6H PRN muscle spasticity Vancomycin HCl 1 each 07/17/24 01:42 Vancomycin For Acute Kidney Injury IVPB PRN PRN Vancomycin Protocol Radiology Results: ITS Impressions Abdomen/Pelvis CT 07/15/24 23:21 IMPRESSION: Cholelithiasis prominence of the common bile duct. Epiploic appendagitis. Diverticulosis without surrounding inflammatory change. Hepatomegaly. Borderline splenomegaly. Labs Labs: Laboratory Results - last 24 hr 07/16/24 07/17/24 07/17/24 10:12 01:25 04:55 WBC 12.3 H RBC 3.89 L Hgb 11.8 L Hct 35.2 L MCV 90.5 MCH 30.3 MCHC 33.5 RDW 15.6 H Plt Count 147 L MPV 9.8 Sodium 131 L Potassium 3.8 Chloride 100 Carbon Dioxide 20 L Anion Gap 11 BUN 26 H D Creatinine 1.80 H Estim Creat Clear Calc 48 Estimated GFR 37 L Glucose 87 Calcium 7.9 L Total Bilirubin 7.0 H AST 238 H ALT 277 H Alkaline Phosphatase 158 H Total Protein 6.0 L Albumin 3.3 L Nasal MRSA (PCR) Not detected CMV IgM Ab <30.00 Hepatitis A IgM Ab Negative Hep Bs Antigen Negative Hep B Core IgM Ab Negative Hepatitis C Ab Screen Negative Quality VTE Prophylaxis VTE prophylaxis: pharmacologic ordered
[2024-07-17] MEDS: buPROPion HCL XL (24 HR) 150 MG TABCR 300 MG PO (10:23)
[2024-07-17] MEDS: FLUTICASONE PROPIONATE 0.05% NA SPR 16 GM BTL (*BKC) 1 SPRAY NASAL ×2 (10:23→20:03)
[2024-07-17] MEDS: busPIRone HCL 5 MG TABLET 15 MG PO ×2 (10:23→20:02)
[2024-07-17] MEDS: PREGABALIN (*CRX) 50 MG CAPSULE 200 MG PO ×2 (10:24→20:02)
[2024-07-17] MEDS: FELODIPINE 5 MG TAB CR 10 MG PO (10:24)
[2024-07-17 10:25] VITALS: PULSE 77
[2024-07-17] MEDS: carvediloL 3.125 MG TABLET PO ×2 (10:25→17:21)
[2024-07-17] MEDS: ATORVASTATIN 20 MG TABLET PO (10:25)
[2024-07-17] MEDS: DULoxetine HCL 60 MG CAPSULE.DR PO (10:25)
[2024-07-17] MEDS: TAMSULOSIN HCL 0.4 MG CAPSULE PO (10:25)
[2024-07-17] MEDS: amLODIPine BESYLATE 5 MG TABLET PO (10:25)
[2024-07-17] MEDS: PANTOPRAZOLE 40 MG TABLET PO (10:25)
--- NOTE | 2024-07-17 11:43 | WPDGIPROGNO ---
Progress Note: A&P Assessment and Plan (1) Elevated liver enzymes: Code(s): R74.8 - Abnormal levels of other serum enzymes Status: Acute Assessment and Plan: patient has been diagnosed with stage III liver fibrosis at outside facility but no cirrhosis, he has cut on drinking since diagnosis GS and will need to check biliary system with MRCP and evaluate if need to perform ercp (pending), started on abx for possible cholecystitis (also had elevated wbc and now + blood cx ? contaminant) surgery will see patient (2) SIRS (systemic inflammatory response syndrome): Code(s): R65.10 - Systemic inflammatory response syndrome (SIRS) of non-infectious origin without acute organ dysfunction Status: Acute Assessment and Plan: leukocytosis, chills, elevated liver enzymes ? cholecystitis, cholangitis on abx feeling better (3) Cholelithiasis: Code(s): K80.20 - Calculus of gallbladder without cholecystitis without obstruction Status: Acute Assessment and Plan: surgery will see patient (4) Acute kidney injury: Code(s): N17.9 - Acute kidney failure, unspecified Status: Acute (5) Gram-positive bacteremia: Code(s): R78.81 - Bacteremia Status: Acute Subjective Date/time seen: 07/17/24 11:43 Interval history: BCx + GP and started on abx patient says that since antibiotics feeling better, no more pain or chills Review of Systems Review of Systems: All systems reviewed & are unremarkable except as noted in HPI and below Exam Const: General: comfortable and no acute distress HENMT: Face/Nose/Sinus: Normal nares present Eyes: General: appearance normal, both eyes and all related structures Neck: Neck: supple Resp: Auscultation: clear to auscultation bilaterally Cardio: Rate: regular rate Rhythm: regular rhythm GI: Inspection: non-distended GI Palp: Yes Soft to palpation and No Tenderness to palpation present (GI) Auscultation: normal bowel sounds Skin: General skin exam: normal color Neuro: Speech: normal speech Motor exam (neuro): 5/5 motor strength present throughout Extrem: General: normal to inspection Psych: Mental Status: mental status grossly normal Objective Data Vital Signs Vital Signs: Vital Signs - 24 hr 07/16/24 13:46 07/16/24 16:36 07/16/24 18:07 Temperature 98.5 F 99.1 F Pulse Rate 77 91 107 H Respiratory Rate 18 22 H Blood Pressure 134/64 144/67 H Pulse Oximetry 97 94 Oxygen Delivery 07/16/24 19:59 07/16/24 20:00 07/17/24 04:27 Temperature 99.3 F 98.6 F Pulse Rate 93 77 Respiratory Rate 20 20 Blood Pressure 101/50 L 110/53 L Pulse Oximetry 92 96 Oxygen Delivery Room Air 07/17/24 10:25 Temperature Pulse Rate 77 Respiratory Rate Blood Pressure Pulse Oximetry Oxygen Delivery Intake/Output Intake/Output: Intake & Output 07/14/24 07/15/24 07/16/24 07/17/24 23:59 23:59 23:59 23:59 Intake Total 3480 1340 Output Total 1250 Balance 2230 1340 Meds/Results Medications: Active Medications Generic Name Dose Route Start Last Admin Trade Name Freq PRN Reason Stop Dose Admin Amlodipine Besylate 5 mg 07/16/24 12:55 07/17/24 10:25 Amlodipine Besylate 5 Mg Tablet PO 5 mg DAILY OLGA Administration Atorvastatin Calcium 20 mg 07/16/24 12:55 07/17/24 10:25 Atorvastatin 20 Mg Tablet PO 20 mg DAILY OLGA Administration Bupropion HCl 300 mg 07/16/24 12:55 07/17/24 10:23 Bupropion Hcl Xl (24 Hr) 150 Mg Tabcr PO 300 mg QAM OLGA Administration Buspirone HCl 15 mg 07/16/24 21:00 07/17/24 10:23 Buspirone Hcl 5 Mg Tablet PO 15 mg Q12HR OLGA Administration Carvedilol 3.125 mg 07/16/24 17:00 07/17/24 10:25 Carvedilol 3.125 Mg Tablet PO 3.125 mg BIDWM OLGA Administration Clonazepam 1 mg 07/16/24 12:34 07/16/24 16:23 Clonazepam (*Crx) 0.5 Mg Tablet PO 1 mg HS PRN Administration anxiety Duloxetine HCl 60 mg 07/16/24 12:55 07/17/24 10:25 Duloxetine Hcl 60 Mg Capsule.Dr PO 60 mg DAILY OLGA Administration Felodipine 10 mg 07/16/24 12:55 07/17/24 10:24 Felodipine 5 Mg Tab Cr PO 08/16/24 12:54 10 mg DAILY OLGA Administration Fluticasone Propionate 1 spray 07/16/24 21:00 07/17/24 10:23 Fluticasone Propionate 0.05% Na Spr 16 Gm Btl (*Bkc) NASAL 1 spray Q12HR OLGA Administration Sodium Chloride 1,000 mls @ 125 mls/hr 07/16/24 02:25 07/17/24 01:20 Normal Saline Iv IV CONT 125 mls/hr .Q8H OLGA Administration Ceftriaxone Sodium 1 gm in 50 mls @ 100 mls/hr 07/17/24 01:00 07/17/24 01:20 Rocephin 1 Gm/Ns 50 Ml IVPB 100 mls/hr QHS OLGA Administration Metronidazole 500 mg in 100 mls @ 100 mls/hr 07/17/24 01:00 07/17/24 10:09 Flagyl 500 Mg/Iso Soln 100 Ml IVPB 100 mls/hr Q8H OLGA Administration Ondansetron HCl 4 mg 07/16/24 02:21 07/16/24 16:24 Ondansetron Inj 4 Mg/2 Ml Vial IV PUSH 4 mg Q4H PRN Administration Nausea Pantoprazole Sodium 40 mg 07/16/24 12:55 07/17/24 10:25 Pantoprazole 40 Mg Tablet PO 08/16/24 12:54 40 mg DAILY OLGA Administration Pregabalin 200 mg 07/16/24 12:35 07/17/24 10:24 Pregabalin (*Crx) 50 Mg Capsule PO 200 mg Q12HR OLGA Administration Rivaroxaban 20 mg 07/16/24 18:00 07/16/24 18:07 Rivaroxaban 20 Mg Tablet PO 20 mg QPM OLGA Administration Tamsulosin HCl 0.4 mg 07/16/24 12:55 07/17/24 10:25 Tamsulosin Hcl 0.4 Mg Capsule PO 0.4 mg DAILY OLGA Administration Tizanidine HCl 4 mg 07/16/24 12:44 Tizanidine Hcl 4 Mg Tablet PO Q6H PRN muscle spasticity Vancomycin HCl 1 each 07/17/24 01:42 Vancomycin For Acute Kidney Injury IVPB PRN PRN Vancomycin Protocol Radiology Results: ITS Impressions Abdomen/Pelvis CT 07/15/24 23:21 IMPRESSION: Cholelithiasis prominence of the common bile duct. Epiploic appendagitis. Diverticulosis without surrounding inflammatory change. Hepatomegaly. Borderline splenomegaly. Labs Labs: Laboratory Results - last 24 hr 07/16/24 07/17/24 07/17/24 10:12 01:25 04:55 WBC 12.3 H RBC 3.89 L Hgb 11.8 L Hct 35.2 L MCV 90.5 MCH 30.3 MCHC 33.5 RDW 15.6 H Plt Count 147 L MPV 9.8 Sodium 131 L Potassium 3.8 Chloride 100 Carbon Dioxide 20 L Anion Gap 11 BUN 26 H D Creatinine 1.80 H Estim Creat Clear Calc 48 Estimated GFR 37 L Glucose 87 Calcium 7.9 L Total Bilirubin 7.0 H AST 238 H ALT 277 H Alkaline Phosphatase 158 H Total Protein 6.0 L Albumin 3.3 L Nasal MRSA (PCR) Not detected CMV IgM Ab <30.00 Hepatitis C Ab Screen Negative
--- NOTE | 2024-07-17 12:05 | PM.CNGS ---
Assessment and Plan Assessment and plan (1) Elevated liver enzymes: Code(s): R74.8 - Abnormal levels of other serum enzymes Status: Acute Assessment and Plan: Unknown etiology, patient with history of liver disease, will get MRCP to rule out choledocholithiasis (2) Cholelithiasis: Code(s): K80.20 - Calculus of gallbladder without cholecystitis without obstruction Status: Acute Assessment and Plan: cholelithiasis noted on CT, await MRI, no signs of cholecystitis on CT, continue antibiotics (3) Alcohol abuse: Code(s): F10.10 - Alcohol abuse, uncomplicated Status: Acute Assessment and Plan: patient has been advised of cessation, reports he has significantly cut down History of Present Illness Consult details Consult date: 07/17/24 Reason for consult: abdominal pain Requesting physician: Levon Ruiz MD Narrative: The patient is a 73-year-old male with multiple medical issues, including liver disease, alcohol abuse, present with symptoms generalized malaise, abdominal pain, lethargy, intermittent nausea and vomiting over the last few months. The patient does see a practice representative at [facility] and has been diagnosed with stage III fibrosis. The patient reports a history of alcohol abuse but reports he has significantly cut down since his diagnosis. The patient has been admitted to the medical service here and workup is significant for elevated liver enzymes, cholelithiasis. Review of Systems Review of Systems: All systems reviewed & are unremarkable except as noted in HPI and below PMFSH Past Medical History Medical History Gram-positive bacteremia Cholelithiasis SIRS (systemic inflammatory response syndrome) HONORIO (obstructive sleep apnea) Balanitis Gout Hyperlipidemia HTN (hypertension) Surgical History Surgical History H/O angioplasty Family History Family History Sibling Diabetes mellitus Family history of mental disorder, Onset Age: 63 Family history of cardiovascular disease, Onset Age: 63 Acute myocardial infarction Family history of malignant neoplasm Mother Family history of mental disorder, Onset Age: 56 Other Family history of seizure disorder Social History Social History Smoking status: Former smoker Alcohol intake: current Drinks per week: 30 Substance use type: does not use Do You Feel Safe in your Home?: Yes Lack of Transportation: No Lack of Food: Never True Current Housing: I Have Housing Concerned About Future Housing: No Difficulty Paying Gas/Electric Bills: No Difficulty Paying for Meds: No Currently Unemployed: No Education: Associate Degree Difficulty w/ Childcare or Family Care: No Spiritual care concerns: No Meds Home Medications and Allergies Home Medications Medication Instructions Recorded Confirmed Type amlodipine 5 mg tablet 5 mg PO DAILY 10/27/19 07/16/24 History bupropion HCl 300 mg 24 hr tablet, 300 mg PO QAM 10/27/19 07/16/24 History extended release clonazepam 1 mg tablet 1 mg PO HS PRN anxiety 10/27/19 07/16/24 History meloxicam 15 mg tablet 15 mg PO DAILY 10/27/19 07/16/24 History metoprolol tartrate 25 mg tablet 25 mg PO DAILY 10/27/19 07/16/24 History omeprazole 20 mg capsule,delayed 40 mg PO DAILY 10/27/19 07/16/24 History release buspirone 15 mg tablet 15 mg PO BID 07/15/24 07/16/24 History evolocumab 140 mg/mL subcutaneous 140 mg subcut .every other week 07/15/24 07/16/24 History pen injector (Ramandeep Springer) furosemide 20 mg tablet 20 mg PO DAILY 07/15/24 07/16/24 History pregabalin 200 mg capsule 200 mg PO Q12H 07/15/24 07/16/24 History semaglutide 0.25 mg or 0.5 mg (2 0.25 mg subcut WEEKLY 07/15/24 07/16/24 History mg/3 mL) subcutaneous pen injector (Ozempic) sildenafil (pulm.hypertension) 20 20 mg PO PRN PRN sexual activity 07/15/24 07/16/24 History mg tablet tadalafil 5 mg tablet 5 mg PO PRN PRN sexual activity 07/15/24 07/16/24 History tamsulosin 0.4 mg capsule 0.4 mg PO DAILY 07/15/24 07/16/24 History atorvastatin 20 mg tablet 20 mg PO DAILY 07/16/24 07/16/24 History carvedilol 3.125 mg tablet 3.125 mg PO BID 07/16/24 07/16/24 History duloxetine 60 mg capsule,delayed 60 mg PO DAILY 07/16/24 07/16/24 History release felodipine 10 mg tablet,extended 10 mg PO DAILY 07/16/24 07/16/24 History release 24 hr fluticasone propionate 50 1 spray intranasal Q12H 07/16/24 07/16/24 History mcg/actuation nasal spray,suspension lisinopril 40 mg tablet 40 mg PO DAILY 07/16/24 07/16/24 History potassium chloride 20 mEq 20 meq PO DAILY 07/16/24 07/16/24 History tablet,extended release (K-Tab) rivaroxaban 20 mg tablet 20 mg PO DAILY 07/16/24 07/16/24 History tizanidine 4 mg capsule 4 mg PO Q6H PRN muscle spasticity 07/16/24 07/16/24 History Allergies Allergy/AdvReac Type Severity Reaction Status Date / Time citalopram Allergy Unknown Hives Verified 07/15/24 20:36 hydralazine Allergy Unknown Hives Verified 07/15/24 20:36 Penicillins Allergy Unknown hives Verified 07/15/24 20:36 Vital Signs Vital Signs - 24 hr 07/16/24 13:46 07/16/24 16:36 07/16/24 18:07 Temperature 36.9 C 37.3 C Pulse Rate 77 91 107 H Respiratory Rate 18 22 H Blood Pressure 134/64 144/67 H Pulse Oximetry 97 94 Oxygen Delivery 07/16/24 19:59 07/16/24 20:00 07/17/24 04:27 Temperature 37.4 C 37.0 C Pulse Rate 93 77 Respiratory Rate 20 20 Blood Pressure 101/50 L 110/53 L Pulse Oximetry 92 96 Oxygen Delivery Room Air 07/17/24 10:25 Temperature Pulse Rate 77 Respiratory Rate Blood Pressure Pulse Oximetry Oxygen Delivery Exam Const: General: cooperative, comfortable, no acute distress and ill appearing HENMT: Head: normal to inspection, normocephalic and atraumatic Eyes: General: appearance normal, both eyes and all related structures Neck: Neck: normal visual inspection and no lymphadenopathy Resp: Auscultation: clear to auscultation bilaterally Cardio: Rate: regular rate Rhythm: regular rhythm GI: Inspection: normal to inspection and non-distended GI Palp: No abdominal tenderness and Yes Soft to palpation Skin: General skin exam: no rashes or lesions noted Other: jaundiced Neuro: General: patient oriented x3 and CN's II-XI intact bilaterally Extrem: General: normal to inspection and full ROM Results Labs 07/17/24 04:55 07/17/24 04:55 Labs: Abnormal lab results 07/17/24 Range/Units 04:55 WBC 12.3 H (4.5-10.0) K/mm3 RBC 3.89 L (4.6-6.20) M/mm3 Hgb 11.8 L (14.0-18.0) g/dL Hct 35.2 L (42.0-52.0) % RDW 15.6 H (11.5-14.5) % Plt Count 147 L (150-375) k/mm3 Sodium 131 L (137-145) mmol/L Carbon Dioxide 20 L (22-30) mmol/L BUN 26 H D (9-20) mg/dL Creatinine 1.80 H (0.7-1.3) mg/dL Estimated GFR 37 L (59 - ) Calcium 7.9 L (8.4-10.2) mg/dL Total Bilirubin 7.0 H (0.2-1.3) mg/dL AST 238 H (17-59) U/L ALT 277 H (6-50) U/L Alkaline Phosphatase 158 H (38-126) U/L Total Protein 6.0 L (6.3-8.2) g/dL Albumin 3.3 L (3.5-5.1) g/dL Diabetes panel 07/17/24 Range/Units 04:55 Sodium 131 L (137-145) mmol/L Potassium 3.8 (3.4-5.0) mmol/L Chloride 100 (98-107) mmol/L Carbon Dioxide 20 L (22-30) mmol/L BUN 26 H D (9-20) mg/dL Creatinine 1.80 H (0.7-1.3) mg/dL Glucose 87 (65-110) mg/dL Calcium 7.9 L (8.4-10.2) mg/dL AST 238 H (17-59) U/L ALT 277 H (6-50) U/L Alkaline Phosphatase 158 H (38-126) U/L Total Protein 6.0 L (6.3-8.2) g/dL Albumin 3.3 L (3.5-5.1) g/dL Calcium panel 07/17/24 Range/Units 04:55 Calcium 7.9 L (8.4-10.2) mg/dL Albumin 3.3 L (3.5-5.1) g/dL Pituitary panel 07/17/24 Range/Units 04:55 Sodium 131 L (137-145) mmol/L Potassium 3.8 (3.4-5.0) mmol/L Chloride 100 (98-107) mmol/L Carbon Dioxide 20 L (22-30) mmol/L BUN 26 H D (9-20) mg/dL Creatinine 1.80 H (0.7-1.3) mg/dL Glucose 87 (65-110) mg/dL Calcium 7.9 L (8.4-10.2) mg/dL Adrenal panel 07/17/24 Range/Units 04:55 Sodium 131 L (137-145) mmol/L Potassium 3.8 (3.4-5.0) mmol/L Chloride 100 (98-107) mmol/L Carbon Dioxide 20 L (22-30) mmol/L BUN 26 H D (9-20) mg/dL Creatinine 1.80 H (0.7-1.3) mg/dL Glucose 87 (65-110) mg/dL Calcium 7.9 L (8.4-10.2) mg/dL Total Bilirubin 7.0 H (0.2-1.3) mg/dL AST 238 H (17-59) U/L ALT 277 H (6-50) U/L Alkaline Phosphatase 158 H (38-126) U/L Total Protein 6.0 L (6.3-8.2) g/dL Albumin 3.3 L (3.5-5.1) g/dL All other labs normal. Imaging Abdomen CT scan report/results: report reviewed and image reviewed
[2024-07-17 14:00] VITALS: BP 115/57; PULSE 75; RESP 16; TEMP 36.8; O2SAT 93
[2024-07-17] MEDS: RIVAROXABAN 20 MG TABLET PO (17:21)
[2024-07-17 22:00] VITALS: BP 122/66; PULSE 60; RESP 18; TEMP 36.7; O2SAT 96
[2024-07-17 22:15] VITALS: PULSE 63; O2SAT 95
[2024-07-18] MEDS: metroNIDAZOLE 500 MG/ISO 100ML 500 MG/100 ML BAG 100 MG IVPB ×3 (00:50→17:58)
[2024-07-18] MEDS: SODIUM CHLORIDE 0.9% IV 1,000 ML 125 ML IV CONT ×2 (00:50→12:00)
[2024-07-18 02:35] LABS: Vancomycin Random 5.3 ug/mL (10-20)
[2024-07-18] MEDS: VANCOMYCIN 2,000 MG/NS 500 ML 2,000 MG/500 ML BAG 250 MG IVPB (03:00)
[2024-07-18 05:16] LABS: Hematocrit 32.3 % (42.0-52.0); Hemoglobin 11.1 g/dL (14.0-18.0); Mean Corpuscular HGB Conc 34.4 g/dl (32-36); Mean Corpuscular Hemoglobin 30.5 pg (26-34); Mean Corpuscular Volume 88.7 fl (80-100); Mean Platelet Volume 10.2 fl (7.4-10.4); Platelet Count Result 120 k/mm3 (150-375); Red Blood Count 3.64 M/mm3 (4.6-6.20); Red Cell Distribution Width 15.7 % (11.5-14.5); White Blood Count 6.7 K/mm3 (4.5-10.0)
[2024-07-18 05:27] LABS: Alanine Aminotransferase 222 U/L (6-50); Albumin Level 3.2 g/dL (3.5-5.1); Alkaline Phosphatase 151 U/L (38-126); Anion Gap 7 mmol/L (4-12); Aspartate Amino Transferase 154 U/L (17-59); Bilirubin,Total 5.6 mg/dL (0.2-1.3); Blood Urea Nitrogen 17 mg/dL (9-20); Calcium 7.6 mg/dL (8.4-10.2); Carbon Dioxide 21 mmol/L (22-30); Chloride 101 mmol/L (98-107); Estimated CRCL calculation 74 ml/min; Estimated Glomerular Filt Rate > 60; Glucose 157 mg/dL (65-110); Potassium 3.7 mmol/L (3.4-5.0); Sodium 129 mmol/L (137-145)
[2024-07-18 06:00] VITALS: BP 119/44; PULSE 61; RESP 18; TEMP 36.3; O2SAT 99
--- NOTE | 2024-07-18 10:10 | PM.PNGS ---
Progress Note: A&P Assessment and Plan (1) Elevated liver enzymes: Code(s): R74.8 - Abnormal levels of other serum enzymes Status: Acute Assessment and Plan: slowly improving, ?etiology, await MRCP (2) Cholelithiasis: Code(s): K80.20 - Calculus of gallbladder without cholecystitis without obstruction Status: Acute Assessment and Plan: see above, exam benign Subjective Subjective Date/Time Seen: 07/18/24 10:10 Interval history: feels better, abraham diet Review of Systems Review of Systems: All systems reviewed & are unremarkable except as noted in HPI and below Exam Const: General: cooperative, comfortable, no acute distress and ill appearing Resp: Auscultation: diminished lung sounds Cardio: Rate: regular rate Rhythm: regular rhythm GI: Inspection: normal to inspection and non-distended GI Palp: No abdominal tenderness and Yes Soft to palpation Objective Data Vital Signs Vital Signs: Vital Signs - 24 hr 07/17/24 10:25 07/17/24 14:00 07/17/24 20:00 Temperature 36.8 C Pulse Rate 77 75 Respiratory Rate 16 Blood Pressure 115/57 L Pulse Oximetry 93 Oxygen Delivery Room Air 07/17/24 22:00 07/17/24 22:15 07/18/24 06:00 Temperature 36.7 C 36.3 C L Pulse Rate 60 63 61 Respiratory Rate 18 18 Blood Pressure 122/66 119/44 L Pulse Oximetry 96 95 99 Oxygen Delivery Intake/Output Intake/Output: Intake & Output 07/15/24 07/16/24 07/17/24 07/18/24 23:59 23:59 23:59 23:59 Intake Total 3480 4550 240 Output Total 1250 Balance 2230 4550 240 Meds/Results Medications: Active Medications Generic Name Dose Route Start Last Admin Trade Name Freq PRN Reason Stop Dose Admin Amlodipine Besylate 5 mg 07/16/24 12:55 07/17/24 10:25 Amlodipine Besylate 5 Mg Tablet PO 5 mg DAILY OLGA Administration Atorvastatin Calcium 20 mg 07/16/24 12:55 07/17/24 10:25 Atorvastatin 20 Mg Tablet PO 20 mg DAILY OLGA Administration Bupropion HCl 300 mg 07/16/24 12:55 07/17/24 10:23 Bupropion Hcl Xl (24 Hr) 150 Mg Tabcr PO 300 mg QAM OLGA Administration Buspirone HCl 15 mg 07/16/24 21:00 07/17/24 20:02 Buspirone Hcl 5 Mg Tablet PO 15 mg Q12HR OLGA Administration Carvedilol 3.125 mg 07/16/24 17:00 07/17/24 17:21 Carvedilol 3.125 Mg Tablet PO 3.125 mg BIDWM OLGA Administration Clonazepam 1 mg 07/16/24 12:34 07/16/24 16:23 Clonazepam (*Crx) 0.5 Mg Tablet PO 1 mg HS PRN Administration anxiety Duloxetine HCl 60 mg 07/16/24 12:55 07/17/24 10:25 Duloxetine Hcl 60 Mg Capsule.Dr PO 60 mg DAILY OLGA Administration Felodipine 10 mg 07/16/24 12:55 07/17/24 10:24 Felodipine 5 Mg Tab Cr PO 08/16/24 12:54 10 mg DAILY OLGA Administration Fluticasone Propionate 1 spray 07/16/24 21:00 07/17/24 20:03 Fluticasone Propionate 0.05% Na Spr 16 Gm Btl (*Bkc) NASAL 1 spray Q12HR OLGA Administration Sodium Chloride 1,000 mls @ 125 mls/hr 07/16/24 02:25 07/18/24 00:50 Normal Saline Iv IV CONT 125 mls/hr .Q8H OLGA Administration Ceftriaxone Sodium 1 gm in 50 mls @ 100 mls/hr 07/17/24 01:00 07/17/24 20:02 Rocephin 1 Gm/Ns 50 Ml IVPB 100 mls/hr QHS OLGA Administration Metronidazole 500 mg in 100 mls @ 100 mls/hr 07/17/24 01:00 07/18/24 00:50 Flagyl 500 Mg/Iso Soln 100 Ml IVPB 100 mls/hr Q8H OLGA Administration Vancomycin HCl 1,500 mg in 500 mls @ 250 mls/hr 07/18/24 21:00 Vancomycin 1,500 Mg/Ns 500 Ml IVPB Q18H OLGA Ondansetron HCl 4 mg 07/16/24 02:21 07/16/24 16:24 Ondansetron Inj 4 Mg/2 Ml Vial IV PUSH 4 mg Q4H PRN Administration Nausea Pantoprazole Sodium 40 mg 07/16/24 12:55 07/17/24 10:25 Pantoprazole 40 Mg Tablet PO 08/16/24 12:54 40 mg DAILY OLGA Administration Pregabalin 200 mg 07/16/24 12:35 07/17/24 20:02 Pregabalin (*Crx) 50 Mg Capsule PO 200 mg Q12HR OLGA Administration Rivaroxaban 20 mg 07/16/24 18:00 07/17/24 17:21 Rivaroxaban 20 Mg Tablet PO 20 mg QPM OLGA Administration Tamsulosin HCl 0.4 mg 07/16/24 12:55 07/17/24 10:25 Tamsulosin Hcl 0.4 Mg Capsule PO 0.4 mg DAILY OLGA Administration Tizanidine HCl 4 mg 07/16/24 12:44 Tizanidine Hcl 4 Mg Tablet PO Q6H PRN muscle spasticity Vancomycin HCl 1 each 07/17/24 01:42 Vancomycin For Acute Kidney Injury IVPB PRN PRN Vancomycin Protocol Radiology Results: ITS Impressions Abdomen/Pelvis CT 07/15/24 23:21 IMPRESSION: Cholelithiasis prominence of the common bile duct. Epiploic appendagitis. Diverticulosis without surrounding inflammatory change. Hepatomegaly. Borderline splenomegaly. Labs Labs: Laboratory Results - last 24 hr 07/18/24 07/18/24 01:55 04:45 WBC 6.7 RBC 3.64 L Hgb 11.1 L Hct 32.3 L MCV 88.7 MCH 30.5 MCHC 34.4 RDW 15.7 H Plt Count 120 L MPV 10.2 Sodium 129 L Potassium 3.7 Chloride 101 Carbon Dioxide 21 L Anion Gap 7 BUN 17 Creatinine 1.15 Estim Creat Clear Calc 74 Estimated GFR > 60 Glucose 157 H Calcium 7.6 L Total Bilirubin 5.6 H AST 154 H ALT 222 H Alkaline Phosphatase 151 H Total Protein 6.0 L Albumin 3.2 L Random Vancomycin 5.3 L
[2024-07-18] MEDS: TAMSULOSIN HCL 0.4 MG CAPSULE PO (10:18)
[2024-07-18] MEDS: amLODIPine BESYLATE 5 MG TABLET PO (10:18)
[2024-07-18] MEDS: buPROPion HCL XL (24 HR) 150 MG TABCR 300 MG PO (10:18)
[2024-07-18] MEDS: ATORVASTATIN 20 MG TABLET PO (10:18)
[2024-07-18 10:19] VITALS: PULSE 80
[2024-07-18] MEDS: busPIRone HCL 5 MG TABLET 15 MG PO ×2 (10:19→20:43)
[2024-07-18] MEDS: FELODIPINE 5 MG TAB CR 10 MG PO (10:19)
[2024-07-18] MEDS: PREGABALIN (*CRX) 50 MG CAPSULE 200 MG PO ×2 (10:19→20:44)
[2024-07-18] MEDS: carvediloL 3.125 MG TABLET PO ×2 (10:19→17:58)
[2024-07-18] MEDS: DULoxetine HCL 60 MG CAPSULE.DR PO (10:19)
[2024-07-18] MEDS: PANTOPRAZOLE 40 MG TABLET PO (10:19)
[2024-07-18] MEDS: FLUTICASONE PROPIONATE 0.05% NA SPR 16 GM BTL (*BKC) 1 SPRAY NASAL ×2 (10:20→20:44)
[2024-07-18] MEDS: ONDANSETRON INJ 4 MG/2 ML VIAL IV PUSH ×2 (10:43→20:38)
--- NOTE | 2024-07-18 13:22 | WPDGIPROGNO ---
Progress Note: A&P Assessment and Plan (1) Elevated liver enzymes: Code(s): R74.8 - Abnormal levels of other serum enzymes Status: Acute Assessment and Plan: blood cx + for Strept, wonder if source could be GB/biliary, awaiting on MRCP to assess if will benefit for ERCP surgery team on board, probably will need surgery overall much better, no more pain, no more leukocytosis continue use of iv antibiotics (2) Sepsis: Code(s): A41.9 - Sepsis, unspecified organism Status: Acute Assessment and Plan: with bacteremia ? source biliary or GB pending mrcp to decide if will need ercp, surgical team on board (3) 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: Code(s): A49.1 - Streptococcal infection, unspecified site Status: Acute (4) Cholelithiasis: Code(s): K80.20 - Calculus of gallbladder without cholecystitis without obstruction Status: Acute Assessment and Plan: surgery on board on abx (5) Acute kidney injury: Code(s): N17.9 - Acute kidney failure, unspecified Status: Acute Assessment and Plan: resolved Subjective Date/time seen: 07/18/24 13:22 Interval history: dong better, no more pain, still some nausea Review of Systems Review of Systems: All systems reviewed & are unremarkable except as noted in HPI and below Exam Const: General: cooperative, comfortable, no acute distress and ill appearing HENMT: Face/Nose/Sinus: Normal nares present Eyes: General: appearance normal, both eyes and all related structures Neck: Neck: supple Resp: Auscultation: diminished lung sounds Cardio: Rate: regular rate Rhythm: regular rhythm GI: Inspection: normal to inspection and non-distended GI Palp: No abdominal tenderness, Yes Soft to palpation and No Tenderness to palpation present (GI) Auscultation: normal bowel sounds Skin: General skin exam: normal color Neuro: Speech: normal speech Motor exam (neuro): 5/5 motor strength present throughout Extrem: General: normal to inspection Psych: Mental Status: mental status grossly normal Objective Data Vital Signs Vital Signs: Vital Signs - 24 hr 07/17/24 14:00 07/17/24 20:00 07/17/24 22:00 Temperature 98.2 F 98.0 F Pulse Rate 75 60 Respiratory Rate 16 18 Blood Pressure 115/57 L 122/66 Pulse Oximetry 93 96 Oxygen Delivery Room Air 05/10/25 22:15 07/18/24 06:00 07/18/24 08:00 Temperature 97.4 F L Pulse Rate 63 61 Respiratory Rate 18 Blood Pressure 119/44 L Pulse Oximetry 95 99 Oxygen Delivery Room Air 07/18/24 10:19 Temperature Pulse Rate 80 Respiratory Rate Blood Pressure Pulse Oximetry Oxygen Delivery Intake/Output Intake/Output: Intake & Output 07/15/24 07/16/24 07/17/24 07/18/24 23:59 23:59 23:59 23:59 Intake Total 3480 4550 340 Output Total 1250 Balance 2230 4550 340 Meds/Results Medications: Active Medications Generic Name Dose Route Start Last Admin Trade Name Freq PRN Reason Stop Dose Admin Amlodipine Besylate 5 mg 07/16/24 12:55 07/18/24 10:18 Amlodipine Besylate 5 Mg Tablet PO 5 mg DAILY OLGA Administration Atorvastatin Calcium 20 mg 07/16/24 12:55 07/18/24 10:18 Atorvastatin 20 Mg Tablet PO 20 mg DAILY OLGA Administration Bupropion HCl 300 mg 07/16/24 12:55 07/18/24 10:18 Bupropion Hcl Xl (24 Hr) 150 Mg Tabcr PO 300 mg QAM OLGA Administration Buspirone HCl 15 mg 07/16/24 21:00 07/18/24 10:19 Buspirone Hcl 5 Mg Tablet PO 15 mg Q12HR OLGA Administration Carvedilol 3.125 mg 07/16/24 17:00 07/18/24 10:19 Carvedilol 3.125 Mg Tablet PO 3.125 mg BIDWM OLGA Administration Clonazepam 1 mg 07/16/24 12:34 07/16/24 16:23 Clonazepam (*Crx) 0.5 Mg Tablet PO 1 mg HS PRN Administration anxiety Duloxetine HCl 60 mg 07/16/24 12:55 07/18/24 10:19 Duloxetine Hcl 60 Mg Capsule.Dr PO 60 mg DAILY OLGA Administration Felodipine 10 mg 07/16/24 12:55 07/18/24 10:19 Felodipine 5 Mg Tab Cr PO 08/16/24 12:54 10 mg DAILY OLGA Administration Fluticasone Propionate 1 spray 07/16/24 21:00 07/18/24 10:20 Fluticasone Propionate 0.05% Na Spr 16 Gm Btl (*Bkc) NASAL 1 spray Q12HR OLGA Administration Sodium Chloride 1,000 mls @ 125 mls/hr 07/16/24 02:25 07/18/24 00:50 Normal Saline Iv IV CONT 125 mls/hr .Q8H OLGA Administration Ceftriaxone Sodium 1 gm in 50 mls @ 100 mls/hr 07/17/24 01:00 07/17/24 20:02 Rocephin 1 Gm/Ns 50 Ml IVPB 100 mls/hr QHS OLGA Administration Metronidazole 500 mg in 100 mls @ 100 mls/hr 07/17/24 01:00 07/18/24 10:18 Flagyl 500 Mg/Iso Soln 100 Ml IVPB 100 mls/hr Q8H OLGA Administration Vancomycin HCl 1,500 mg in 500 mls @ 250 mls/hr 07/18/24 21:00 Vancomycin 1,500 Mg/Ns 500 Ml IVPB Q18H OLGA Ondansetron HCl 4 mg 07/16/24 02:21 07/18/24 10:43 Ondansetron Inj 4 Mg/2 Ml Vial IV PUSH 4 mg Q4H PRN Administration Nausea Pantoprazole Sodium 40 mg 07/16/24 12:55 07/18/24 10:19 Pantoprazole 40 Mg Tablet PO 08/16/24 12:54 40 mg DAILY OLGA Administration Pregabalin 200 mg 07/16/24 12:35 07/18/24 10:19 Pregabalin (*Crx) 50 Mg Capsule PO 200 mg Q12HR OLGA Administration Rivaroxaban 20 mg 07/16/24 18:00 07/17/24 17:21 Rivaroxaban 20 Mg Tablet PO 20 mg QPM OLGA Administration Tamsulosin HCl 0.4 mg 07/16/24 12:55 07/18/24 10:18 Tamsulosin Hcl 0.4 Mg Capsule PO 0.4 mg DAILY OLGA Administration Tizanidine HCl 4 mg 07/16/24 12:44 Tizanidine Hcl 4 Mg Tablet PO Q6H PRN muscle spasticity Radiology Results: ITS Impressions Abdomen/Pelvis CT 07/15/24 23:21 IMPRESSION: Cholelithiasis prominence of the common bile duct. Epiploic appendagitis. Diverticulosis without surrounding inflammatory change. Hepatomegaly. Borderline splenomegaly. Labs Labs: Laboratory Results - last 24 hr 07/18/24 07/18/24 01:55 04:45 WBC 6.7 RBC 3.64 L Hgb 11.1 L Hct 32.3 L MCV 88.7 MCH 30.5 MCHC 34.4 RDW 15.7 H Plt Count 120 L MPV 10.2 Sodium 129 L Potassium 3.7 Chloride 101 Carbon Dioxide 21 L Anion Gap 7 BUN 17 Creatinine 1.15 Estim Creat Clear Calc 74 Estimated GFR > 60 Glucose 157 H Calcium 7.6 L Total Bilirubin 5.6 H AST 154 H ALT 222 H Alkaline Phosphatase 151 H Total Protein 6.0 L Albumin 3.2 L Random Vancomycin 5.3 L
[2024-07-18 14:00] VITALS: BP 131/64; PULSE 66; RESP 16; TEMP 36.1; O2SAT 95
--- NOTE | 2024-07-18 14:28 | P.PNIM_ITS ---
Progress Note: A&P Assessment and Plan (1) Alcohol abuse: Code(s): F10.10 - Alcohol abuse, uncomplicated Status: Acute (2) Hypothyroid: Qualifiers: Hypothyroidism type: unspecified Qualified Code(s): E03.9 - Hypothyroidism, unspecified Code(s): E03.9 - Hypothyroidism, unspecified Status: Acute (3) Hyponatremia: Code(s): E87.1 - Hypo-osmolality and hyponatremia Status: Acute (4) GERD (gastroesophageal reflux disease): Qualifiers: Esophagitis presence: without esophagitis Qualified Code(s): K21.9 - Gastro-esophageal reflux disease without esophagitis Code(s): K21.9 - Gastro-esophageal reflux disease without esophagitis Status: Acute (5) Elevated liver enzymes: Code(s): R74.8 - Abnormal levels of other serum enzymes Status: Acute (6) Acute kidney injury: Code(s): N17.9 - Acute kidney failure, unspecified Status: Acute (7) S/P ablation of atrial fibrillation: Code(s): Z98.890 - Other specified postprocedural states; Z86.79 - Personal history of other diseases of the circulatory system Status: Acute Plan 73-year-old male with PMH/o alcohol abuse,afib, s/p ablation, HLD, ED, BPH admitted for further work up for abd pain and elevated liver enzymes. He diagnosed with stage III liver fibrosis and seeing patternmaker sample at [facility], had EGD about 3 months ago. He was drinking pretty much daily but decreased since he was told about liver disease. He mostly drink on a weekend now but can drink 3-8 beers at a time. - GI consulted, surgery consulted - elevated liver enzymes, bilirubin 6 - CT scan showed cholelithiasis and prominent bile duct - Leukocytosis 14.6->12.3 - MRCP scheduled to evaluate biliary system -hepatitis viral negative. - will continue IV fluids, pain and nausea control -trend daily labs -BC collected 07/17 BC Gram-positive cocci in aerobic bottles. Given possible GI cause, patient was started on Rocephin and Flagyl in addition to vancomycin. MRSA was checked- negative (5/10) -repeat BC -ordered surgery onboard 07/18 -BC+ for Strept- possible source- GB/biliary, MRCP - with possibly ERCP if needed surgery following vs reviewed and stable wbc improved trend labs, temp, vs nausea, pain meds prn Chronic problems afib-will continue coreg and xarelto htn hld-continue statin bph- flomax Pt is full code DVT prophylaxis_ continue xarelto Time Spent With Patient Time with patient: 25 - 35 minutes Subjective Date/time seen: 07/18/24 14:28 Interval history: Pt is seen and examined. C/o some nausea but overall feels better. no acute complains. Review of Systems Review of Systems: All systems reviewed & are unremarkable except as noted in HPI and below (h/p) Exam Const: General: comfortable Eyes: General: appearance normal, both eyes and all related structures Sclera: sclerae normal Neck: Neck: supple Resp: Effort & Inspection: normal respiratory effort Auscultation: clear to auscultation bilaterally Cardio: Rate: regular rate Rhythm: regular rhythm GI: Auscultation: normal bowel sounds Skin: General skin exam: normal color Neuro: Speech: normal speech Motor exam (neuro): 5/5 motor strength present throughout Sensory Exam: normal sensation Extrem: General: normal to inspection Psych: Mental Status: mental status grossly normal Affect: normal affect Objective Data Vital Signs Vital Signs: Vital Signs - 24 hr 07/17/24 20:00 07/17/24 22:00 07/17/24 22:15 Temperature 98.0 F Pulse Rate 60 63 Respiratory Rate 18 Blood Pressure 122/66 Pulse Oximetry 96 95 Oxygen Delivery Room Air 07/18/24 06:00 07/18/24 08:00 07/18/24 10:19 Temperature 97.4 F L Pulse Rate 61 80 Respiratory Rate 18 Blood Pressure 119/44 L Pulse Oximetry 99 Oxygen Delivery Room Air 07/18/24 14:00 Temperature 97 F L Pulse Rate 66 Respiratory Rate 16 Blood Pressure 131/64 Pulse Oximetry 95 Oxygen Delivery Intake/Output Intake/Output: Intake & Output 07/15/24 07/16/24 07/17/24 07/18/24 23:59 23:59 23:59 23:59 Intake Total 3480 4550 820 Output Total 1250 Balance 2230 4550 820 Meds/Results Medications: Active Medications Generic Name Dose Route Start Last Admin Trade Name Freq PRN Reason Stop Dose Admin Amlodipine Besylate 5 mg 07/16/24 12:55 07/18/24 10:18 Amlodipine Besylate 5 Mg Tablet PO 5 mg DAILY OLGA Administration Atorvastatin Calcium 20 mg 07/16/24 12:55 07/18/24 10:18 Atorvastatin 20 Mg Tablet PO 20 mg DAILY OLGA Administration Bupropion HCl 300 mg 07/16/24 12:55 07/18/24 10:18 Bupropion Hcl Xl (24 Hr) 150 Mg Tabcr PO 300 mg QAM OLGA Administration Buspirone HCl 15 mg 07/16/24 21:00 07/18/24 10:19 Buspirone Hcl 5 Mg Tablet PO 15 mg Q12HR OLGA Administration Carvedilol 3.125 mg 07/16/24 17:00 07/18/24 10:19 Carvedilol 3.125 Mg Tablet PO 3.125 mg BIDWM OLGA Administration Clonazepam 1 mg 07/16/24 12:34 07/16/24 16:23 Clonazepam (*Crx) 0.5 Mg Tablet PO 1 mg HS PRN Administration anxiety Duloxetine HCl 60 mg 07/16/24 12:55 07/18/24 10:19 Duloxetine Hcl 60 Mg Capsule.Dr PO 60 mg DAILY OLGA Administration Felodipine 10 mg 07/16/24 12:55 07/18/24 10:19 Felodipine 5 Mg Tab Cr PO 08/16/24 12:54 10 mg DAILY OLGA Administration Fluticasone Propionate 1 spray 07/16/24 21:00 07/18/24 10:20 Fluticasone Propionate 0.05% Na Spr 16 Gm Btl (*Bkc) NASAL 1 spray Q12HR OLGA Administration Sodium Chloride 1,000 mls @ 125 mls/hr 07/16/24 02:25 07/18/24 00:50 Normal Saline Iv IV CONT 125 mls/hr .Q8H OLGA Administration Ceftriaxone Sodium 1 gm in 50 mls @ 100 mls/hr 07/17/24 01:00 07/17/24 20:02 Rocephin 1 Gm/Ns 50 Ml IVPB 100 mls/hr QHS OLGA Administration Metronidazole 500 mg in 100 mls @ 100 mls/hr 07/17/24 01:00 07/18/24 10:18 Flagyl 500 Mg/Iso Soln 100 Ml IVPB 100 mls/hr Q8H OLGA Administration Vancomycin HCl 1,500 mg in 500 mls @ 250 mls/hr 07/18/24 21:00 Vancomycin 1,500 Mg/Ns 500 Ml IVPB Q18H OLGA Ondansetron HCl 4 mg 07/16/24 02:21 07/18/24 10:43 Ondansetron Inj 4 Mg/2 Ml Vial IV PUSH 4 mg Q4H PRN Administration Nausea Pantoprazole Sodium 40 mg 07/16/24 12:55 07/18/24 10:19 Pantoprazole 40 Mg Tablet PO 08/16/24 12:54 40 mg DAILY OLGA Administration Pregabalin 200 mg 07/16/24 12:35 07/18/24 10:19 Pregabalin (*Crx) 50 Mg Capsule PO 200 mg Q12HR OLGA Administration Rivaroxaban 20 mg 07/16/24 18:00 07/17/24 17:21 Rivaroxaban 20 Mg Tablet PO 20 mg QPM OLGA Administration Tamsulosin HCl 0.4 mg 07/16/24 12:55 07/18/24 10:18 Tamsulosin Hcl 0.4 Mg Capsule PO 0.4 mg DAILY OLGA Administration Tizanidine HCl 4 mg 07/16/24 12:44 Tizanidine Hcl 4 Mg Tablet PO Q6H PRN muscle spasticity Radiology Results: ITS Impressions Abdomen/Pelvis CT 07/15/24 23:21 IMPRESSION: Cholelithiasis prominence of the common bile duct. Epiploic appendagitis. Diverticulosis without surrounding inflammatory change. Hepatomegaly. Borderline splenomegaly. Labs Labs: Laboratory Results - last 24 hr 07/18/24 07/18/24 01:55 04:45 WBC 6.7 RBC 3.64 L Hgb 11.1 L Hct 32.3 L MCV 88.7 MCH 30.5 MCHC 34.4 RDW 15.7 H Plt Count 120 L MPV 10.2 Sodium 129 L Potassium 3.7 Chloride 101 Carbon Dioxide 21 L Anion Gap 7 BUN 17 Creatinine 1.15 Estim Creat Clear Calc 74 Estimated GFR > 60 Glucose 157 H Calcium 7.6 L Total Bilirubin 5.6 H AST 154 H ALT 222 H Alkaline Phosphatase 151 H Total Protein 6.0 L Albumin 3.2 L Random Vancomycin 5.3 L Quality VTE Prophylaxis VTE prophylaxis: pharmacologic ordered
[2024-07-18 17:58] VITALS: PULSE 78
[2024-07-18] MEDS: RIVAROXABAN 20 MG TABLET PO (17:58)
[2024-07-18] MEDS: VANCOMYCIN 1,500 MG/NS 500 ML 1,500 MG/500 ML BAG 250 MG IVPB (20:40)
[2024-07-18] MEDS: clonazePAM (*CRX) 0.5 MG TABLET 1 MG PO (20:43)
[2024-07-18 22:00] VITALS: BP 152/77; PULSE 62; RESP 18; TEMP 36.8; O2SAT 96
[2024-07-18 22:54] LABS: Herpes Simplex Type 1 DNA PCR Not Detected (Not Detected); Herpes Simplex Type 2 DNA PCR Not Detected (Not Detected)
[2024-07-19] MEDS: SODIUM CHLORIDE 0.9% IV 1,000 ML 125 ML IV CONT ×2 (00:49→20:15)
[2024-07-19] MEDS: metroNIDAZOLE 500 MG/ISO 100ML 500 MG/100 ML BAG 100 MG IVPB ×2 (00:49→08:40)
[2024-07-19 06:00] VITALS: BP 141/55; PULSE 63; RESP 18; TEMP 36.4; O2SAT 96
[2024-07-19 06:10] LABS: Hematocrit 31.8 % (42.0-52.0); Hemoglobin 11.1 g/dL (14.0-18.0); Mean Corpuscular HGB Conc 34.9 g/dl (32-36); Mean Corpuscular Hemoglobin 31.3 pg (26-34); Mean Corpuscular Volume 89.6 fl (80-100); Mean Platelet Volume 10.2 fl (7.4-10.4); Platelet Count Result 141 k/mm3 (150-375); Red Blood Count 3.55 M/mm3 (4.6-6.20); Red Cell Distribution Width 15.5 % (11.5-14.5); White Blood Count 4.6 K/mm3 (4.5-10.0)
[2024-07-19 06:27] LABS: Alanine Aminotransferase 174 U/L (6-50); Albumin Level 3.2 g/dL (3.5-5.1); Alkaline Phosphatase 158 U/L (38-126); Anion Gap 7 mmol/L (4-12); Aspartate Amino Transferase 98 U/L (17-59); Bilirubin,Total 3.2 mg/dL (0.2-1.3); Blood Urea Nitrogen 9 mg/dL (9-20); Calcium 7.8 mg/dL (8.4-10.2); Carbon Dioxide 22 mmol/L (22-30); Chloride 104 mmol/L (98-107); Estimated CRCL calculation 92 ml/min; Estimated Glomerular Filt Rate > 60; Glucose 117 mg/dL (65-110); Potassium 3.5 mmol/L (3.4-5.0); Sodium 133 mmol/L (137-145)
[2024-07-19] MEDS: ATORVASTATIN 20 MG TABLET PO (08:39)
[2024-07-19] MEDS: PREGABALIN (*CRX) 50 MG CAPSULE 200 MG PO ×2 (08:39→22:10)
[2024-07-19] MEDS: TAMSULOSIN HCL 0.4 MG CAPSULE PO (08:39)
[2024-07-19] MEDS: amLODIPine BESYLATE 5 MG TABLET PO (08:39)
[2024-07-19] MEDS: PANTOPRAZOLE 40 MG TABLET PO (08:39)
[2024-07-19] MEDS: FELODIPINE 5 MG TAB CR 10 MG PO (08:39)
[2024-07-19 08:40] VITALS: PULSE 64
[2024-07-19] MEDS: carvediloL 3.125 MG TABLET PO ×2 (08:40→17:30)
[2024-07-19] MEDS: DULoxetine HCL 60 MG CAPSULE.DR PO (08:40)
[2024-07-19] MEDS: busPIRone HCL 5 MG TABLET 15 MG PO ×2 (08:40→22:10)
[2024-07-19] MEDS: buPROPion HCL XL (24 HR) 150 MG TABCR 300 MG PO (08:40)
[2024-07-19] MEDS: FLUTICASONE PROPIONATE 0.05% NA SPR 16 GM BTL (*BKC) 1 SPRAY NASAL ×2 (08:44→20:17)
--- NOTE | 2024-07-19 08:49 | PM.PNGS ---
Progress Note: A&P Assessment and Plan (1) Choledocholithiasis: Code(s): K80.50 - Calculus of bile duct without cholangitis or cholecystitis without obstruction Status: Acute Assessment and Plan: MRCP reviewed, await GI input regarding possible ERCP, exam benign, labs improved, will likely need interval cholecystectomy Subjective Subjective Date/Time Seen: 07/19/24 08:49 Interval history: no acute issues, no pain, minimal nausea Review of Systems Review of Systems: All systems reviewed & are unremarkable except as noted in HPI and below Exam Const: General: cooperative, comfortable and no acute distress Resp: Auscultation: clear to auscultation bilaterally Cardio: Rate: regular rate Rhythm: regular rhythm GI: Inspection: normal to inspection and non-distended GI Palp: No abdominal tenderness and Yes Soft to palpation Objective Data Vital Signs Vital Signs: Vital Signs - 24 hr 07/18/24 10:19 07/18/24 14:00 07/18/24 17:58 Temperature 36.1 C L Pulse Rate 80 66 78 Respiratory Rate 16 Blood Pressure 131/64 Pulse Oximetry 95 Oxygen Delivery 07/18/24 20:00 07/18/24 22:00 07/18/24 22:30 Temperature 36.8 C Pulse Rate 62 Respiratory Rate 18 Blood Pressure 152/77 H Pulse Oximetry 96 Oxygen Delivery Room Air CPAP 07/19/24 06:00 07/19/24 08:40 Temperature 36.4 C L Pulse Rate 63 64 Respiratory Rate 18 Blood Pressure 141/55 H Pulse Oximetry 96 Oxygen Delivery Intake/Output Intake/Output: Intake & Output 07/16/24 07/17/24 07/18/24 07/19/24 23:59 23:59 23:59 23:59 Intake Total 3480 4600 4050 100 Output Total 1250 Balance 2230 4600 4050 100 Meds/Results Medications: Active Medications Generic Name Dose Route Start Last Admin Trade Name Freq PRN Reason Stop Dose Admin Amlodipine Besylate 5 mg 07/16/24 12:55 07/19/24 08:39 Amlodipine Besylate 5 Mg Tablet PO 5 mg DAILY OLGA Administration Atorvastatin Calcium 20 mg 07/16/24 12:55 07/19/24 08:39 Atorvastatin 20 Mg Tablet PO 20 mg DAILY OLGA Administration Bupropion HCl 300 mg 07/16/24 12:55 07/19/24 08:40 Bupropion Hcl Xl (24 Hr) 150 Mg Tabcr PO 300 mg QAM OLGA Administration Buspirone HCl 15 mg 07/16/24 21:00 07/19/24 08:40 Buspirone Hcl 5 Mg Tablet PO 15 mg Q12HR OLGA Administration Carvedilol 3.125 mg 07/16/24 17:00 07/19/24 08:40 Carvedilol 3.125 Mg Tablet PO 3.125 mg BIDWM OLGA Administration Clonazepam 1 mg 07/16/24 12:34 07/18/24 20:43 Clonazepam (*Crx) 0.5 Mg Tablet PO 1 mg HS PRN Administration anxiety Duloxetine HCl 60 mg 07/16/24 12:55 07/19/24 08:40 Duloxetine Hcl 60 Mg Capsule.Dr PO 60 mg DAILY OLGA Administration Felodipine 10 mg 07/16/24 12:55 07/19/24 08:39 Felodipine 5 Mg Tab Cr PO 08/16/24 12:54 10 mg DAILY OLGA Administration Fluticasone Propionate 1 spray 07/16/24 21:00 07/19/24 08:44 Fluticasone Propionate 0.05% Na Spr 16 Gm Btl (*Bkc) NASAL 1 spray Q12HR OLGA Administration Sodium Chloride 1,000 mls @ 125 mls/hr 07/16/24 02:25 07/19/24 00:49 Normal Saline Iv IV CONT 125 mls/hr .Q8H OLGA Administration Ceftriaxone Sodium 1 gm in 50 mls @ 100 mls/hr 07/17/24 01:00 07/18/24 21:09 Rocephin 1 Gm/Ns 50 Ml IVPB Infused QHS OLGA Infusion Metronidazole 500 mg in 100 mls @ 100 mls/hr 07/17/24 01:00 07/19/24 08:40 Flagyl 500 Mg/Iso Soln 100 Ml IVPB 100 mls/hr Q8H OLGA Administration Vancomycin HCl 1,500 mg in 500 mls @ 250 mls/hr 07/18/24 21:00 07/18/24 22:40 Vancomycin 1,500 Mg/Ns 500 Ml IVPB Infused Q18H OLGA Infusion Ondansetron HCl 4 mg 07/16/24 02:21 07/18/24 20:38 Ondansetron Inj 4 Mg/2 Ml Vial IV PUSH 4 mg Q4H PRN Administration Nausea Pantoprazole Sodium 40 mg 07/16/24 12:55 07/19/24 08:39 Pantoprazole 40 Mg Tablet PO 08/16/24 12:54 40 mg DAILY OLGA Administration Pregabalin 200 mg 07/16/24 12:35 07/19/24 08:39 Pregabalin (*Crx) 50 Mg Capsule PO 200 mg Q12HR OLGA Administration Rivaroxaban 20 mg 07/16/24 18:00 07/18/24 17:58 Rivaroxaban 20 Mg Tablet PO 20 mg QPM OLGA Administration Tamsulosin HCl 0.4 mg 07/16/24 12:55 07/19/24 08:39 Tamsulosin Hcl 0.4 Mg Capsule PO 0.4 mg DAILY OLGA Administration Tizanidine HCl 4 mg 07/16/24 12:44 Tizanidine Hcl 4 Mg Tablet PO Q6H PRN muscle spasticity Radiology Results: ITS Impressions Abdomen/Pelvis CT 07/15/24 23:21 IMPRESSION: Cholelithiasis prominence of the common bile duct. Epiploic appendagitis. Diverticulosis without surrounding inflammatory change. Hepatomegaly. Borderline splenomegaly. MRCP 07/19/24 08:14 IMPRESSION: 1. Cholelithiasis and choledocholithiasis with 6 mm stone at the distal aspect of the common bile duct with mild dilation the common hepatic duct 8 mm but with no intrahepatic biliary ductal dilation. 2. Epiploic appendagitis along the distal descending colon. 3. Diverticulosis. Labs Labs: Laboratory Results - last 24 hr 07/16/24 07/19/24 10:12 05:58 WBC 4.6 RBC 3.55 L Hgb 11.1 L Hct 31.8 L MCV 89.6 MCH 31.3 MCHC 34.9 RDW 15.5 H Plt Count 141 L MPV 10.2 Sodium 133 L Potassium 3.5 Chloride 104 Carbon Dioxide 22 Anion Gap 7 BUN 9 D Creatinine 0.91 Estim Creat Clear Calc 92 Estimated GFR > 60 Glucose 117 H Calcium 7.8 L Total Bilirubin 3.2 H AST 98 H ALT 174 H Alkaline Phosphatase 158 H Total Protein 6.0 L Albumin 3.2 L HSV I DNA PCR Not detected HSV II DNA PCR Not detected HSV (PCR) Source Blood
--- NOTE | 2024-07-19 08:54 | WPDCDIQUERY2 ---
CDI Query Clarification Request 1) Please clarify diagnosis, Sepsis documented on 07/18 SIRS documented on 07/17 Bacteremia documented on 07/17 2) Is sepsis ruled in or ruled out? 3) Was sepsis present at the time of inpatient admission? -yes, condition present at the time of admission -no, condition was not present at the time of inpatient admission and it developed during the inpatient stay -w, provider is unable to clinically determine whether condition is present on admission The medical chart reflects the followin73 year old male accompanied by with complaints of having chills today and having some sharp middle region abdominal pain and he noted some blood on toilet. Patient reports that he has some back pain normally and pain has not been worse. Patient reports that he has had episodes of shivering off and on for 3 weeks. Patient sees primary care provider and gastro doctor at [facility]. Patient reports BM few days ago which was firm and small. Urine dip completed with no evidence of blood in urine, urobilinogen 1.0. Patient reports that he has taken some Tylenol for his discomfort. 07/18 hospitalist Plan 73-year-old male with PMH/o alcohol abuse,afib, s/p ablation, HLD, ED, BPH admitted for further work up for abd pain and elevated liver enzymes. He diagnosed with stage III liver fibrosis and seeing agricultural consultant at [facility], had EGD about 3 months ago. He was drinking pretty much daily but decreased since he was told about liver disease. He mostly drink on a weekend now but can drink 3-8 beers at a time. - GI consulted, surgery consulted - elevated liver enzymes, bilirubin 6 - CT scan showed cholelithiasis and prominent bile duct - Leukocytosis 14.6->12.3 - MRCP scheduled to evaluate biliary system -hepatitis viral negative. - will continue IV fluids, pain and nausea control -trend daily labs -BC collected 07/17 BC Gram-positive cocci in aerobic bottles. Given possible GI cause, patient was started on Rocephin and Flagyl in addition to vancomycin. MRSA was checked-negative (07/17) -repeat BC -ordered surgery onboard 07/18 -BC+ for Strept- possible source- GB/biliary, MRCP - with possibly ERCP if needed surgery following vs reviewed and stable wbc improved trend labs, temp, vs nausea, pain meds prn 07/18 gen surg. documented : Assessment and Plan (1) Elevated liver enzymes: Code(s): R74.8 - Abnormal levels of other serum enzymes Status: Acute Assessment and Plan: blood cx + for Strept, wonder if source could be GB/biliary, awaiting on MRCP to assess if will benefit for ERCP surgery team on board, probably will need surgery overall much better, no more pain, no more leukocytosis continue use of iv antibiotics (2) Sepsis: Code(s): A41.9 - Sepsis, unspecified organism Status: Acute Assessment and Plan: with bacteremia ? source biliary or GB pending mrcp to decide if will need ercp, surgical team on board (3) 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: Code(s): A49.1 - Streptococcal infection, unspecified site Status: Acute (4) Cholelithiasis: Code(s): K80.20 - Calculus of gallbladder without cholecystitis without obstruction Status: Acute Assessment and Plan: surgery on board on abx (5) Acute kidney injury: Code(s): N17.9 - Acute kidney failure, unspecified Status: Acute Assessment and Plan: resolved Event Note 07/17: labs return patient was noted to have Gram-positive cocci in aerobic bottles. The patient has elevated LFTs and was reporting subjective fevers at home as well that being leukocytosis. which could be due to infection versus chronic liver failure/alcoholism. He is undergoing MRCP in a.m. to rule gallbladder pathology. Patient's case is concerning for possible acute infection. Given possible GI cause will place patient on Rocephin and Flagyl in addition to vancomycin. will check MRSA nasal swab to see if patient has chronic colonization as well. Will monitor blood cultures WBC: 07/15: 14.6, 07/17: 12.3 Lactic acid: 07/16: 1.6 Blood cultures 07/16: Strep gallol ssp pasteuruanus verified 07/19 Blood cultures 07/17 preliminary showing no growth to date. <Berenice Zepeda RN - Last Filed: 07/19/24 09:11> Clarified Diagnosis Clarified Diagnosis: -yes, condition present at the time of admission leukocytosis on addmission BC collected in ED that were positive <Sri Morocho, ACID POLYMERIZATION OPERATOR - Last Filed: 07/19/24 09:27>
--- NOTE | 2024-07-19 10:52 | P.PNIM_ITS ---
Progress Note: A&P Assessment and Plan (1) Alcohol abuse: Code(s): F10.10 - Alcohol abuse, uncomplicated Status: Acute (2) Hypothyroid: Qualifiers: Hypothyroidism type: unspecified Qualified Code(s): E03.9 - Hypothyroidism, unspecified Code(s): E03.9 - Hypothyroidism, unspecified Status: Acute (3) Hyponatremia: Code(s): E87.1 - Hypo-osmolality and hyponatremia Status: Acute (4) GERD (gastroesophageal reflux disease): Qualifiers: Esophagitis presence: without esophagitis Qualified Code(s): K21.9 - Gastro-esophageal reflux disease without esophagitis Code(s): K21.9 - Gastro-esophageal reflux disease without esophagitis Status: Acute (5) Elevated liver enzymes: Code(s): R74.8 - Abnormal levels of other serum enzymes Status: Acute (6) Acute kidney injury: Code(s): N17.9 - Acute kidney failure, unspecified Status: Acute (7) S/P ablation of atrial fibrillation: Code(s): Z98.890 - Other specified postprocedural states; Z86.79 - Personal history of other diseases of the circulatory system Status: Acute Plan 73-year-old male with PMH/o alcohol abuse,afib, s/p ablation, HLD, ED, BPH admitted for further work up for abd pain and elevated liver enzymes. 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 He was drinking pretty much daily but decreased since he was told about liver disease. He mostly drink on a weekend now but can drink 3-8 beers at a time. - GI consulted, surgery consulted - elevated liver enzymes, bilirubin 6 - CT scan showed cholelithiasis and prominent bile duct - Leukocytosis 14.6->12.3 - MRCP scheduled to evaluate biliary system -hepatitis viral negative. - will continue IV fluids, pain and nausea control -trend daily labs -BC collected 07/17 BC Gram-positive cocci in aerobic bottles. Given possible GI cause, patient was started on Rocephin and Flagyl in addition to vancomycin. MRSA was checked- negative (5/10) -repeat BC -ordered surgery onboard 07/18 -BC+ for Strept- possible source- GB/biliary, MRCP - with possibly ERCP if needed surgery following vs reviewed and stable wbc improved trend labs, temp, vs nausea, pain meds prn 07/19 MRCP completed GI following - possible ERCP surgery following (possible cholecystectomy) wbc 4.6 hg 11.1- but had been stable bili trending donw, liver enzymes stable -vanc stopped. flagyl downgraded to PO, continue with Ceftriaxone Chronic problems afib-will continue coreg and xarelto htn hld-continue statin bph- flomax Pt is full code DVT prophylaxis_ continue xarelto Time Spent With Patient Time with patient: 25 - 35 minutes Subjective Date/time seen: 07/19/24 10:52 Interval history: Pt is seen and examined. C/o some nausea but overall feels better. very pleasant. MRCP completed, GI is following, possible ERCP. Surgery is following (will prob need cholecystectomy) Vanc stopped, flagyl downgraded to PO continue Ceftriaxone Review of Systems Review of Systems: All systems reviewed & are unremarkable except as noted in HPI and below (h/p) Exam Const: General: comfortable Eyes: General: appearance normal, both eyes and all related structures Sclera: sclerae normal Neck: Neck: supple Resp: Effort & Inspection: normal respiratory effort Auscultation: clear to auscultation bilaterally Cardio: Rate: regular rate Rhythm: regular rhythm GI: Auscultation: normal bowel sounds Skin: General skin exam: normal color Neuro: Speech: normal speech Motor exam (neuro): 5/5 motor strength present throughout Sensory Exam: normal sensation Extrem: General: normal to inspection Psych: Mental Status: mental status grossly normal Affect: normal affect Objective Data Vital Signs Vital Signs: Vital Signs - 24 hr 07/18/24 14:00 07/18/24 17:58 07/18/24 20:00 Temperature 97 F L Pulse Rate 66 78 Respiratory Rate 16 Blood Pressure 131/64 Pulse Oximetry 95 Oxygen Delivery Room Air 07/18/24 22:00 07/18/24 22:30 07/19/24 06:00 Temperature 98.2 F 97.5 F L Pulse Rate 62 63 Respiratory Rate 18 18 Blood Pressure 152/77 H 141/55 H Pulse Oximetry 96 96 Oxygen Delivery CPAP 07/19/24 08:40 Temperature Pulse Rate 64 Respiratory Rate Blood Pressure Pulse Oximetry Oxygen Delivery Intake/Output Intake/Output: Intake & Output 07/16/24 07/17/24 07/18/24 07/19/24 23:59 23:59 23:59 23:59 Intake Total 3480 4600 4050 340 Output Total 1250 Balance 2230 4600 4050 340 Meds/Results Medications: Active Medications Generic Name Dose Route Start Last Admin Trade Name Freq PRN Reason Stop Dose Admin Amlodipine Besylate 5 mg 07/16/24 12:55 07/19/24 08:39 Amlodipine Besylate 5 Mg Tablet PO 5 mg DAILY OLGA Administration Atorvastatin Calcium 20 mg 07/16/24 12:55 07/19/24 08:39 Atorvastatin 20 Mg Tablet PO 20 mg DAILY OLGA Administration Bupropion HCl 300 mg 07/16/24 12:55 07/19/24 08:40 Bupropion Hcl Xl (24 Hr) 150 Mg Tabcr PO 300 mg QAM OLGA Administration Buspirone HCl 15 mg 07/16/24 21:00 07/19/24 08:40 Buspirone Hcl 5 Mg Tablet PO 15 mg Q12HR OLGA Administration Carvedilol 3.125 mg 07/16/24 17:00 07/19/24 08:40 Carvedilol 3.125 Mg Tablet PO 3.125 mg BIDWM OLGA Administration Clonazepam 1 mg 07/16/24 12:34 07/18/24 20:43 Clonazepam (*Crx) 0.5 Mg Tablet PO 1 mg HS PRN Administration anxiety Duloxetine HCl 60 mg 07/16/24 12:55 07/19/24 08:40 Duloxetine Hcl 60 Mg Capsule.Dr PO 60 mg DAILY OLGA Administration Felodipine 10 mg 07/16/24 12:55 07/19/24 08:39 Felodipine 5 Mg Tab Cr PO 08/16/24 12:54 10 mg DAILY OLGA Administration Fluticasone Propionate 1 spray 07/16/24 21:00 07/19/24 08:44 Fluticasone Propionate 0.05% Na Spr 16 Gm Btl (*Bkc) NASAL 1 spray Q12HR OLGA Administration Sodium Chloride 1,000 mls @ 125 mls/hr 07/16/24 02:25 07/19/24 00:49 Normal Saline Iv IV CONT 125 mls/hr .Q8H OLGA Administration Ceftriaxone Sodium 1 gm in 50 mls @ 100 mls/hr 07/17/24 01:00 07/18/24 21:09 Rocephin 1 Gm/Ns 50 Ml IVPB Infused QHS OLGA Infusion Metronidazole 500 mg 07/19/24 15:00 Metronidazole 500 Mg Tablet PO Q8HR [facility] Ondansetron HCl 4 mg 07/16/24 02:21 07/18/24 20:38 Ondansetron Inj 4 Mg/2 Ml Vial IV PUSH 4 mg Q4H PRN Administration Nausea Pantoprazole Sodium 40 mg 07/16/24 12:55 07/19/24 08:39 Pantoprazole 40 Mg Tablet PO 08/16/24 12:54 40 mg DAILY OLGA Administration Pregabalin 200 mg 07/16/24 12:35 07/19/24 08:39 Pregabalin (*Crx) 50 Mg Capsule PO 200 mg Q12HR [facility] Administration Rivaroxaban 20 mg 07/16/24 18:00 07/18/24 17:58 Rivaroxaban 20 Mg Tablet PO 20 mg QPM [facility] Administration Tamsulosin HCl 0.4 mg 07/16/24 12:55 07/19/24 08:39 Tamsulosin Hcl 0.4 Mg Capsule PO 0.4 mg DAILY [facility] Administration Tizanidine HCl 4 mg 07/16/24 12:44 Tizanidine Hcl 4 Mg Tablet PO Q6H PRN muscle spasticity Radiology Results: ITS Impressions Abdomen/Pelvis CT 07/15/24 23:21 IMPRESSION: Cholelithiasis prominence of the common bile duct. Epiploic appendagitis. Diverticulosis without surrounding inflammatory change. Hepatomegaly. Borderline splenomegaly. MRCP 07/19/24 08:14 IMPRESSION: 1. Cholelithiasis and choledocholithiasis with 6 mm stone at the distal aspect of the common bile duct with mild dilation the common hepatic duct 8 mm but with no intrahepatic biliary ductal dilation. 2. Epiploic appendagitis along the distal descending colon. 3. Diverticulosis. Labs Labs: Laboratory Results - last 24 hr 07/16/24 07/19/24 10:12 05:58 WBC 4.6 RBC 3.55 L Hgb 11.1 L Hct 31.8 L MCV 89.6 MCH 31.3 MCHC 34.9 RDW 15.5 H Plt Count 141 L MPV 10.2 Sodium 133 L Potassium 3.5 Chloride 104 Carbon Dioxide 22 Anion Gap 7 BUN 9 D Creatinine 0.91 Estim Creat Clear Calc 92 Estimated GFR > 60 Glucose 117 H Calcium 7.8 L Total Bilirubin 3.2 H AST 98 H ALT 174 H Alkaline Phosphatase 158 H Total Protein 6.0 L Albumin 3.2 L HSV I DNA PCR Not detected HSV II DNA PCR Not detected HSV (PCR) Source Blood Quality VTE Prophylaxis VTE prophylaxis: pharmacologic ordered
[2024-07-19 14:00] VITALS: BP 126/57; PULSE 60; RESP 18; TEMP 36.2; O2SAT 94
[2024-07-19 14:44] LABS: CMV DNA Quant PCR IU/mL Not Detected (Not Detected); Cytomegalovirus DNA Quant PCR Not Detected Log IU/mL (Not Detected); EVB DNA,QN PCR Not Detected log IU/mL (Not Detected); Epstein Barr Virus PCR Not Detected (Not Detected)
[2024-07-19 17:30] VITALS: PULSE 68
[2024-07-19] MEDS: RIVAROXABAN 20 MG TABLET PO (17:30)
[2024-07-19] MEDS: metroNIDAZOLE 500 MG TABLET PO ×2 (17:30→22:10)
--- NOTE | 2024-07-19 17:35 | WPDGIPROGNO ---
Progress Note: A&P Assessment and Plan (1) Elevated liver enzymes: Code(s): R74.8 - Abnormal levels of other serum enzymes Status: Acute Assessment and Plan: blood cx + for Strept and could be cholangitis, MRCP reviewed and GS with choledocholithiasis, today could not do ERCP since he already ate plan is ercp tomorrow and continue with abx, overall better then will need interval cholecystectomy (2) Choledocholithiasis: Code(s): K80.50 - Calculus of bile duct without cholangitis or cholecystitis without obstruction Status: Acute Assessment and Plan: ercp tomorrow npo after midnight (3) Sepsis: Code(s): A41.9 - Sepsis, unspecified organism Status: Acute Assessment and Plan: with bacteremia possible cholangitis, ercp tomorrow sensitive to rocephin (4) Cholangitis: Code(s): K83.09 - Other cholangitis Status: Acute (5) 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: Code(s): A49.1 - Streptococcal infection, unspecified site Status: Acute (6) Cholelithiasis: Code(s): K80.20 - Calculus of gallbladder without cholecystitis without obstruction Status: Acute Assessment and Plan: surgery on board on abx Subjective Date/time seen: 07/19/24 17:35 Interval history: no pain, nausea has improved Review of Systems Review of Systems: All systems reviewed & are unremarkable except as noted in HPI and below Exam Const: General: cooperative, comfortable and no acute distress HENMT: Face/Nose/Sinus: Normal nares present Eyes: General: appearance normal, both eyes and all related structures Neck: Neck: supple Resp: Auscultation: diminished lung sounds Cardio: Rate: regular rate Rhythm: regular rhythm GI: Inspection: normal to inspection and non-distended GI Palp: No abdominal tenderness, Yes Soft to palpation and No Tenderness to palpation present (GI) Auscultation: normal bowel sounds Skin: General skin exam: normal color Neuro: Speech: normal speech Motor exam (neuro): 5/5 motor strength present throughout Extrem: General: normal to inspection Psych: Mental Status: mental status grossly normal Objective Data Vital Signs Vital Signs: Vital Signs - 24 hr 07/18/24 17:58 07/18/24 20:00 07/18/24 22:00 Temperature 98.2 F Pulse Rate 78 62 Respiratory Rate 18 Blood Pressure 152/77 H Pulse Oximetry 96 Oxygen Delivery Room Air 07/18/24 22:30 07/19/24 06:00 07/19/24 08:00 Temperature 97.5 F L Pulse Rate 63 Respiratory Rate 18 Blood Pressure 141/55 H Pulse Oximetry 96 Oxygen Delivery CPAP Room Air 07/19/24 08:40 07/19/24 14:00 07/19/24 17:30 Temperature 97.1 F L Pulse Rate 64 60 68 Respiratory Rate 18 Blood Pressure 126/57 L Pulse Oximetry 94 Oxygen Delivery Intake/Output Intake/Output: Intake & Output 07/16/24 07/17/24 07/18/24 07/19/24 23:59 23:59 23:59 23:59 Intake Total 3480 4600 4050 580 Output Total 1250 Balance 2230 4600 4050 580 Meds/Results Medications: Active Medications Generic Name Dose Route Start Last Admin Trade Name Freq PRN Reason Stop Dose Admin Amlodipine Besylate 5 mg 07/16/24 12:55 07/19/24 08:39 Amlodipine Besylate 5 Mg Tablet PO 5 mg DAILY OLGA Administration Atorvastatin Calcium 20 mg 07/16/24 12:55 07/19/24 08:39 Atorvastatin 20 Mg Tablet PO 20 mg DAILY OLGA Administration Bupropion HCl 300 mg 07/16/24 12:55 07/19/24 08:40 Bupropion Hcl Xl (24 Hr) 150 Mg Tabcr PO 300 mg QAM OLGA Administration Buspirone HCl 15 mg 07/16/24 21:00 07/19/24 08:40 Buspirone Hcl 5 Mg Tablet PO 15 mg Q12HR [facility]GA Administration Carvedilol 3.125 mg 07/16/24 17:00 07/19/24 17:30 Carvedilol 3.125 Mg Tablet PO 3.125 mg BIDWM OLGA Administration Clonazepam 1 mg 07/16/24 12:34 07/18/24 20:43 Clonazepam (*Crx) 0.5 Mg Tablet PO 1 mg HS PRN Administration anxiety Duloxetine HCl 60 mg 07/16/24 12:55 07/19/24 08:40 Duloxetine Hcl 60 Mg Capsule.Dr PO 60 mg DAILY OLGA Administration Felodipine 10 mg 07/16/24 12:55 07/19/24 08:39 Felodipine 5 Mg Tab Cr PO 08/16/24 12:54 10 mg DAILY OLGA Administration Fluticasone Propionate 1 spray 07/16/24 21:00 07/19/24 08:44 Fluticasone Propionate 0.05% Na Spr 16 Gm Btl (*Bkc) NASAL 1 spray Q12HR OLGA Administration Sodium Chloride 1,000 mls @ 125 mls/hr 07/16/24 02:25 07/19/24 00:49 Normal Saline Iv IV CONT 125 mls/hr .Q8H OLGA Administration Ceftriaxone Sodium 1 gm in 50 mls @ 100 mls/hr 07/17/24 01:00 07/18/24 21:09 Rocephin 1 Gm/Ns 50 Ml IVPB Infused QHS OLGA Infusion Metronidazole 500 mg 07/19/24 15:00 07/19/24 17:30 Metronidazole 500 Mg Tablet PO 500 mg Q8HR OLGA Administration Ondansetron HCl 4 mg 07/16/24 02:21 07/18/24 20:38 Ondansetron Inj 4 Mg/2 Ml Vial IV PUSH 4 mg Q4H PRN Administration Nausea Pantoprazole Sodium 40 mg 07/16/24 12:55 07/19/24 08:39 Pantoprazole 40 Mg Tablet PO 08/16/24 12:54 40 mg DAILY OLGA Administration Pregabalin 200 mg 07/16/24 12:35 07/19/24 08:39 Pregabalin (*Crx) 50 Mg Capsule PO 200 mg Q12HR OLGA Administration Rivaroxaban 20 mg 07/16/24 18:00 07/19/24 17:30 Rivaroxaban 20 Mg Tablet PO 20 mg QPM OLGA Administration Tamsulosin HCl 0.4 mg 07/16/24 12:55 07/19/24 08:39 Tamsulosin Hcl 0.4 Mg Capsule PO 0.4 mg DAILY OLGA Administration Tizanidine HCl 4 mg 07/16/24 12:44 Tizanidine Hcl 4 Mg Tablet PO Q6H PRN muscle spasticity Radiology Results: ITS Impressions Abdomen/Pelvis CT 07/15/24 23:21 IMPRESSION: Cholelithiasis prominence of the common bile duct. Epiploic appendagitis. Diverticulosis without surrounding inflammatory change. Hepatomegaly. Borderline splenomegaly. MRCP 07/19/24 08:14 IMPRESSION: 1. Cholelithiasis and choledocholithiasis with 6 mm stone at the distal aspect of the common bile duct with mild dilation the common hepatic duct 8 mm but with no intrahepatic biliary ductal dilation. 2. Epiploic appendagitis along the distal descending colon. 3. Diverticulosis. Labs Labs: Laboratory Results - last 24 hr 07/16/24 07/19/24 10:12 05:58 WBC 4.6 RBC 3.55 L Hgb 11.1 L Hct 31.8 L MCV 89.6 MCH 31.3 MCHC 34.9 RDW 15.5 H Plt Count 141 L MPV 10.2 Sodium 133 L Potassium 3.5 Chloride 104 Carbon Dioxide 22 Anion Gap 7 BUN 9 D Creatinine 0.91 Estim Creat Clear Calc 92 Estimated GFR > 60 Glucose 117 H Calcium 7.8 L Total Bilirubin 3.2 H AST 98 H ALT 174 H Alkaline Phosphatase 158 H Total Protein 6.0 L Albumin 3.2 L CMV DNA Quant PCR Not detected CMV Qnt PCR log IU/mL Not detected EBV (Quant-PCR) Quant Not detected EBV DNA Quant PCR log10 Not detected HSV I DNA PCR Not detected HSV II DNA PCR Not detected HSV (PCR) Source Blood
[2024-07-19 20:19] VITALS: BP 150/73; PULSE 59; RESP 18; TEMP 36.6; O2SAT 96
[2024-07-19 21:15] VITALS: PULSE 63; O2SAT 97
[2024-07-19] MEDS: clonazePAM (*CRX) 0.5 MG TABLET 1 MG PO (22:12)
[2024-07-20] VITALS (14 sets, daily range): BP systolic 130–155; BP diastolic 63–82; PULSE 60–92; RESP 16–20; TEMP 36.2–36.8; O2SAT 95–100
[2024-07-20] MEDS: SODIUM CHLORIDE 0.9% IV 1,000 ML 125 ML IV CONT ×2 (04:58→13:36)
[2024-07-20] MEDS: metroNIDAZOLE 500 MG TABLET PO ×3 (04:58→21:47)
[2024-07-20 05:07] LABS: Hemoglobin 11.1 g/dL (14.0-18.0); Mean Corpuscular HGB Conc 33.6 g/dl (32-36); Mean Corpuscular Hemoglobin 30.4 pg (26-34); Mean Corpuscular Volume 90.4 fl (80-100); Mean Platelet Volume 10.7 fl (7.4-10.4); Platelet Count Result 166 k/mm3 (150-375); Red Blood Count 3.65 M/mm3 (4.6-6.20); Red Cell Distribution Width 15.4 % (11.5-14.5); White Blood Count 4.7 K/mm3 (4.5-10.0)
[2024-07-20 05:17] LABS: Alanine Aminotransferase 135 U/L (6-50); Albumin Level 3.3 g/dL (3.5-5.1); Alkaline Phosphatase 157 U/L (38-126); Anion Gap 8 mmol/L (4-12); Aspartate Amino Transferase 66 U/L (17-59); Bilirubin,Total 2.7 mg/dL (0.2-1.3); Blood Urea Nitrogen 8 mg/dL (9-20); Calcium 8.4 mg/dL (8.4-10.2); Carbon Dioxide 24 mmol/L (22-30); Chloride 102 mmol/L (98-107); Estimated CRCL calculation 98 ml/min; Estimated Glomerular Filt Rate > 60; Glucose 119 mg/dL (65-110); Potassium 3.1 mmol/L (3.4-5.0); Sodium 134 mmol/L (137-145)
--- NOTE | 2024-07-20 08:34 | P.PNIM_ITS ---
Progress Note: A&P Assessment and Plan (1) Alcohol abuse: Code(s): F10.10 - Alcohol abuse, uncomplicated Status: Acute (2) Hypothyroid: Qualifiers: Hypothyroidism type: unspecified Qualified Code(s): E03.9 - Hypothyroidism, unspecified Code(s): E03.9 - Hypothyroidism, unspecified Status: Acute (3) Hyponatremia: Code(s): E87.1 - Hypo-osmolality and hyponatremia Status: Acute (4) GERD (gastroesophageal reflux disease): Qualifiers: Esophagitis presence: without esophagitis Qualified Code(s): K21.9 - Gastro-esophageal reflux disease without esophagitis Code(s): K21.9 - Gastro-esophageal reflux disease without esophagitis Status: Acute (5) Elevated liver enzymes: Code(s): R74.8 - Abnormal levels of other serum enzymes Status: Acute (6) Acute kidney injury: Code(s): N17.9 - Acute kidney failure, unspecified Status: Acute (7) S/P ablation of atrial fibrillation: Code(s): Z98.890 - Other specified postprocedural states; Z86.79 - Personal history of other diseases of the circulatory system Status: Acute Plan 73-year-old male with PMH/o alcohol abuse,afib, s/p ablation, HLD, ED, BPH admitted for further work up for abd pain and elevated liver enzymes. 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 He was drinking pretty much daily but decreased since he was told about liver disease. He mostly drink on a weekend now but can drink 3-8 beers at a time. - GI consulted, surgery consulted - elevated liver enzymes, bilirubin 6 - CT scan showed cholelithiasis and prominent bile duct - Leukocytosis 14.6->12.3 - MRCP scheduled to evaluate biliary system -hepatitis viral negative. - will continue IV fluids, pain and nausea control -trend daily labs -BC collected 07/17 BC Gram-positive cocci in aerobic bottles. Given possible GI cause, patient was started on Rocephin and Flagyl in addition to vancomycin. MRSA was checked- negative (5/10) -repeat BC -ordered surgery onboard 07/18 -BC+ for Strep- possible source- GB/biliary, MRCP - with possibly ERCP if needed surgery following vs reviewed and stable wbc improved trend labs, temp, vs nausea, pain meds prn 07/19 MRCP completed GI following - possible ERCP surgery following (possible cholecystectomy) wbc 4.6 hg 11.1- but had been stable bili trending down, liver enzymes stable -vanc stopped. flagyl downgraded to PO, continue with Ceftriaxone 07/20 wbc stable ERCP today at 3pm Chronic problems afib-will continue coreg and xarelto htn hld-continue statin bph- flomax Pt is full code DVT prophylaxis_ continue xarelto Time Spent With Patient Time with patient: 25 - 35 minutes Subjective Date/time seen: 07/20/24 08:34 Interval history: 73-year-old male with PMH/o alcohol abuse,afib, s/p ablation, HLD, ED, BPH admitted for further work up for abd pain and elevated liver enzymes. Pt is doing well this am, no pain, intermittent nausea, no vomiting. ERCP today at 3pm. Review of Systems Review of Systems: All systems reviewed & are unremarkable except as noted in HPI and below (h/p) Exam Const: General: comfortable Eyes: General: appearance normal, both eyes and all related structures Sclera: sclerae normal Neck: Neck: supple Resp: Effort & Inspection: normal respiratory effort Auscultation: clear to auscultation bilaterally Cardio: Rate: regular rate Rhythm: regular rhythm GI: Auscultation: normal bowel sounds Skin: General skin exam: normal color Neuro: Speech: normal speech Motor exam (neuro): 5/5 motor strength present throughout Sensory Exam: normal sensation Extrem: General: normal to inspection Psych: Mental Status: mental status grossly normal Affect: normal affect Objective Data Vital Signs Vital Signs: Vital Signs - 24 hr 07/19/24 08:40 07/19/24 14:00 07/19/24 17:30 Temperature 97.1 F L Pulse Rate 64 60 68 Respiratory Rate 18 Blood Pressure 126/57 L Pulse Oximetry 94 Oxygen Delivery 07/19/24 20:00 07/19/24 20:19 07/19/24 21:15 Temperature 97.8 F Pulse Rate 59 L 63 Respiratory Rate 18 Blood Pressure 150/73 H Pulse Oximetry 96 97 Oxygen Delivery Room Air 07/20/24 05:05 Temperature 98.2 F Pulse Rate 64 Respiratory Rate 18 Blood Pressure 132/72 Pulse Oximetry 97 Oxygen Delivery Intake/Output Intake/Output: Intake & Output 07/17/24 07/18/24 07/19/24 07/20/24 23:59 23:59 23:59 23:59 Intake Total 4600 4050 2560 1000 Balance 4600 4050 2560 1000 Meds/Results Medications: Active Medications Generic Name Dose Route Start Last Admin Trade Name Freq PRN Reason Stop Dose Admin Amlodipine Besylate 5 mg 07/16/24 12:55 07/19/24 08:39 Amlodipine Besylate 5 Mg Tablet PO 5 mg DAILY OLGA Administration Atorvastatin Calcium 20 mg 07/16/24 12:55 07/19/24 08:39 Atorvastatin 20 Mg Tablet PO 20 mg DAILY OLGA Administration Bupropion HCl 300 mg 07/16/24 12:55 07/19/24 08:40 Bupropion Hcl Xl (24 Hr) 150 Mg Tabcr PO 300 mg QAM OLGA Administration Buspirone HCl 15 mg 07/16/24 21:00 07/19/24 22:10 Buspirone Hcl 5 Mg Tablet PO 15 mg Q12HR [facility]GA Administration Carvedilol 3.125 mg 07/16/24 17:00 07/19/24 17:30 Carvedilol 3.125 Mg Tablet PO 3.125 mg BIDWM OLGA Administration Clonazepam 1 mg 07/16/24 12:34 07/19/24 22:12 Clonazepam (*Crx) 0.5 Mg Tablet PO 1 mg HS PRN Administration anxiety Duloxetine HCl 60 mg 07/16/24 12:55 07/19/24 08:40 Duloxetine Hcl 60 Mg Capsule.Dr PO 60 mg DAILY [facility]GA Administration Felodipine 10 mg 07/16/24 12:55 07/19/24 08:39 Felodipine 5 Mg Tab Cr PO 08/16/24 12:54 10 mg DAILY [facility]GA Administration Fluticasone Propionate 1 spray 07/16/24 21:00 07/19/24 20:17 Fluticasone Propionate 0.05% Na Spr 16 Gm Btl (*Bkc) NASAL 1 spray Q12HR OLGA Administration Sodium Chloride 1,000 mls @ 125 mls/hr 07/16/24 02:25 07/20/24 04:58 Normal Saline Iv IV CONT 125 mls/hr .Q8H OLGA Administration Ceftriaxone Sodium 1 gm in 50 mls @ 100 mls/hr 07/17/24 01:00 07/19/24 20:44 Rocephin 1 Gm/Ns 50 Ml IVPB Infused QHS OLGA Infusion Lactated Ringer's 1,000 mls @ 150 mls/hr 07/20/24 06:55 Lr - Lactated Ringers Iv IV CONT .Q6H40M [facility] Metronidazole 500 mg 07/19/24 15:00 07/20/24 04:58 Metronidazole 500 Mg Tablet PO 500 mg Q8HR OLGA Administration Ondansetron HCl 4 mg 07/16/24 02:21 07/18/24 20:38 Ondansetron Inj 4 Mg/2 Ml Vial IV PUSH 4 mg Q4H PRN Administration Nausea Pantoprazole Sodium 40 mg 07/16/24 12:55 07/19/24 08:39 Pantoprazole 40 Mg Tablet PO 08/16/24 12:54 40 mg DAILY OLGA Administration Potassium Chloride 40 meq 07/20/24 09:00 Potassium Chloride 20 Meq Packet (For Liquid) PO DAILY [facility] Pregabalin 200 mg 07/16/24 12:35 07/19/24 22:10 Pregabalin (*Crx) 50 Mg Capsule PO 200 mg Q12HR [facility] Administration Rivaroxaban 20 mg 07/16/24 18:00 07/19/24 17:30 Rivaroxaban 20 Mg Tablet PO 20 mg QPM OLGA Administration Tamsulosin HCl 0.4 mg 07/16/24 12:55 07/19/24 08:39 Tamsulosin Hcl 0.4 Mg Capsule PO 0.4 mg DAILY [facility] Administration Tizanidine HCl 4 mg 07/16/24 12:44 Tizanidine Hcl 4 Mg Tablet PO Q6H PRN muscle spasticity Radiology Results: ITS Impressions Abdomen/Pelvis CT 07/15/24 23:21 IMPRESSION: Cholelithiasis prominence of the common bile duct. Epiploic appendagitis. Diverticulosis without surrounding inflammatory change. Hepatomegaly. Borderline splenomegaly. MRCP 07/19/24 08:14 IMPRESSION: 1. Cholelithiasis and choledocholithiasis with 6 mm stone at the distal aspect of the common bile duct with mild dilation the common hepatic duct 8 mm but with no intrahepatic biliary ductal dilation. 2. Epiploic appendagitis along the distal descending colon. 3. Diverticulosis. Labs Labs: Laboratory Results - last 24 hr 07/16/24 07/20/24 10:12 04:18 WBC 4.7 RBC 3.65 L Hgb 11.1 L Hct 33.0 L MCV 90.4 MCH 30.4 MCHC 33.6 RDW 15.4 H Plt Count 166 MPV 10.7 H Sodium 134 L Potassium 3.1 L Chloride 102 Carbon Dioxide 24 Anion Gap 8 BUN 8 L Creatinine 0.85 Estim Creat Clear Calc 98 Estimated GFR > 60 Glucose 119 H Calcium 8.4 Total Bilirubin 2.7 H AST 66 H ALT 135 H Alkaline Phosphatase 157 H Total Protein 6.0 L Albumin 3.3 L CMV DNA Quant PCR Not detected CMV Qnt PCR log IU/mL Not detected EBV (Quant-PCR) Quant Not detected EBV DNA Quant PCR log10 Not detected Quality VTE Prophylaxis VTE prophylaxis: pharmacologic ordered
[2024-07-20] MEDS: busPIRone HCL 5 MG TABLET 15 MG PO ×2 (09:14→21:47)
[2024-07-20] MEDS: DULoxetine HCL 60 MG CAPSULE.DR PO (09:14)
[2024-07-20] MEDS: amLODIPine BESYLATE 5 MG TABLET PO (09:14)
[2024-07-20] MEDS: FELODIPINE 5 MG TAB CR 10 MG PO (09:14)
[2024-07-20] MEDS: PREGABALIN (*CRX) 50 MG CAPSULE 200 MG PO ×2 (09:14→21:46)
[2024-07-20] MEDS: PANTOPRAZOLE 40 MG TABLET PO (09:15)
[2024-07-20] MEDS: buPROPion HCL XL (24 HR) 150 MG TABCR 300 MG PO (09:15)
[2024-07-20] MEDS: carvediloL 3.125 MG TABLET PO ×2 (09:15→18:15)
[2024-07-20] MEDS: TAMSULOSIN HCL 0.4 MG CAPSULE PO (09:15)
[2024-07-20] MEDS: ATORVASTATIN 20 MG TABLET PO (09:15)
[2024-07-20] MEDS: FLUTICASONE PROPIONATE 0.05% NA SPR 16 GM BTL (*BKC) 1 SPRAY NASAL ×2 (09:18→21:47)
--- NOTE | 2024-07-20 10:44 | P.PNGS_ITS ---
Progress Note: A&P Assessment and Plan (1) Choledocholithiasis: Code(s): K80.50 - Calculus of bile duct without cholangitis or cholecystitis without obstruction Status: Acute Assessment and Plan: * Will await results of ERCP today. He will eventually need an interval laparoscopic cholecystectomy. Plan I have discussed the patient's case and plan of care with Dr. Rodas. Subjective Subjective Date/Time Seen: 07/20/24 10:44 Patient reports: no new complaints and afebrile Interval history: Denies any abdominal pain. No acute events overnight. ERCP scheduled today. Exam GI: Inspection: non-distended and obesity GI Palp: Yes Soft to palpation, No Tenderness to palpation present (GI) and No Guarding due to palpation present (GI) Auscultation: normal bowel sounds Objective Data Vital Signs Vital Signs: Vital Signs - 24 hr 07/19/24 14:00 07/19/24 17:30 07/19/24 20:00 Temperature 97.1 F L Pulse Rate 60 68 Respiratory Rate 18 Blood Pressure 126/57 L Pulse Oximetry 94 Oxygen Delivery Room Air 07/19/24 20:19 07/19/24 21:15 07/20/24 05:05 Temperature 97.8 F 98.2 F Pulse Rate 59 L 63 64 Respiratory Rate 18 18 Blood Pressure 150/73 H 132/72 Pulse Oximetry 96 97 97 Oxygen Delivery 07/20/24 09:15 07/20/24 09:15 Temperature Pulse Rate 70 Respiratory Rate Blood Pressure Pulse Oximetry Oxygen Delivery Room Air Intake/Output Intake/Output: Intake & Output 07/17/24 07/18/24 07/19/24 07/20/24 23:59 23:59 23:59 23:59 Intake Total 4600 4050 2560 1000 Balance 4600 4050 2560 1000 Meds/Results Medications: Active Medications Generic Name Dose Route Start Last Admin Trade Name Freq PRN Reason Stop Dose Admin Amlodipine Besylate 5 mg 07/16/24 12:55 07/20/24 09:14 Amlodipine Besylate 5 Mg Tablet PO 5 mg DAILY OLGA Administration Atorvastatin Calcium 20 mg 07/16/24 12:55 07/20/24 09:15 Atorvastatin 20 Mg Tablet PO 20 mg DAILY OLGA Administration Bupropion HCl 300 mg 07/16/24 12:55 07/20/24 09:15 Bupropion Hcl Xl (24 Hr) 150 Mg Tabcr PO 300 mg QAM OLGA Administration Buspirone HCl 15 mg 07/16/24 21:00 07/20/24 09:14 Buspirone Hcl 5 Mg Tablet PO 15 mg Q12HR OLGA Administration Carvedilol 3.125 mg 07/16/24 17:00 07/20/24 09:15 Carvedilol 3.125 Mg Tablet PO 3.125 mg BIDWM OLGA Administration Clonazepam 1 mg 07/16/24 12:34 07/19/24 22:12 Clonazepam (*Crx) 0.5 Mg Tablet PO 1 mg HS PRN Administration anxiety Duloxetine HCl 60 mg 07/16/24 12:55 07/20/24 09:14 Duloxetine Hcl 60 Mg Capsule.Dr PO 60 mg DAILY OLGA Administration Felodipine 10 mg 07/16/24 12:55 07/20/24 09:14 Felodipine 5 Mg Tab Cr PO 08/16/24 12:54 10 mg DAILY OLGA Administration Fluticasone Propionate 1 spray 07/16/24 21:00 07/20/24 09:18 Fluticasone Propionate 0.05% Na Spr 16 Gm Btl (*Bkc) NASAL 1 spray Q12HR OLGA Administration Sodium Chloride 1,000 mls @ 125 mls/hr 07/16/24 02:25 07/20/24 09:19 Normal Saline Iv IV CONT Not Given .Q8H OLGA Ceftriaxone Sodium 1 gm in 50 mls @ 100 mls/hr 07/17/24 01:00 07/19/24 20:44 Rocephin 1 Gm/Ns 50 Ml IVPB Infused QHS OLGA Infusion Lactated Ringer's 1,000 mls @ 150 mls/hr 07/20/24 06:55 Lr - Lactated Ringers Iv IV CONT .Q6H40M OLGA Lidocaine 1 patch 07/20/24 09:00 07/20/24 10:11 Lidocaine 5% Patch TRANSDERM Not Given DAILY OLGA Metronidazole 500 mg 07/19/24 15:00 07/20/24 04:58 Metronidazole 500 Mg Tablet PO 500 mg Q8HR OLGA Administration Ondansetron HCl 4 mg 07/16/24 02:21 07/18/24 20:38 Ondansetron Inj 4 Mg/2 Ml Vial IV PUSH 4 mg Q4H PRN Administration Nausea Pantoprazole Sodium 40 mg 07/16/24 12:55 07/20/24 09:15 Pantoprazole 40 Mg Tablet PO 08/16/24 12:54 40 mg DAILY OLGA Administration Potassium Chloride 40 meq 07/20/24 09:00 07/20/24 09:15 Potassium Chloride 20 Meq Packet (For Liquid) PO Not Given DAILY OLGA Pregabalin 200 mg 07/16/24 12:35 07/20/24 09:14 Pregabalin (*Crx) 50 Mg Capsule PO 200 mg Q12HR OLGA Administration Rivaroxaban 20 mg 07/16/24 18:00 07/19/24 17:30 Rivaroxaban 20 Mg Tablet PO 20 mg QPM OLGA Administration Tamsulosin HCl 0.4 mg 07/16/24 12:55 07/20/24 09:15 Tamsulosin Hcl 0.4 Mg Capsule PO 0.4 mg DAILY OLGA Administration Tizanidine HCl 4 mg 07/16/24 12:44 Tizanidine Hcl 4 Mg Tablet PO Q6H PRN muscle spasticity Radiology Results: ITS Impressions Abdomen/Pelvis CT 07/15/24 23:21 IMPRESSION: Cholelithiasis prominence of the common bile duct. Epiploic appendagitis. Diverticulosis without surrounding inflammatory change. Hepatomegaly. Borderline splenomegaly. MRCP 07/19/24 08:14 IMPRESSION: 1. Cholelithiasis and choledocholithiasis with 6 mm stone at the distal aspect of the common bile duct with mild dilation the common hepatic duct 8 mm but with no intrahepatic biliary ductal dilation. 2. Epiploic appendagitis along the distal descending colon. 3. Diverticulosis. Labs Labs: Laboratory Results - last 24 hr 07/16/24 07/20/24 10:12 04:18 WBC 4.7 RBC 3.65 L Hgb 11.1 L Hct 33.0 L MCV 90.4 MCH 30.4 MCHC 33.6 RDW 15.4 H Plt Count 166 MPV 10.7 H Sodium 134 L Potassium 3.1 L Chloride 102 Carbon Dioxide 24 Anion Gap 8 BUN 8 L Creatinine 0.85 Estim Creat Clear Calc 98 Estimated GFR > 60 Glucose 119 H Calcium 8.4 Total Bilirubin 2.7 H AST 66 H ALT 135 H Alkaline Phosphatase 157 H Total Protein 6.0 L Albumin 3.3 L CMV DNA Quant PCR Not detected CMV Qnt PCR log IU/mL Not detected EBV (Quant-PCR) Quant Not detected EBV DNA Quant PCR log10 Not detected
[2024-07-20] MEDS: LACTATED RINGERS 1,000 ML 150 ML IV CONT ×2 (14:32→16:24)
--- NOTE | 2024-07-20 15:23 | WPDANESEPPF ---
Anes - Initial Pre Proc Eval Procedure: Operation Date: 07/20/24 15:00 Proposed Procedures p Endoscopic Retro Cholangiopancreatogram - Levon Ruiz MD Date/Time: 07/20/24 15:23 Surgeon: Frances Gtz DO Pre Op Diagnosis: elevated liver enzymes, acute kidney injury Patient Data Age: 73 Gender: M Height: 1.91 m Weight: 133.8 kg Last Vital Signs Temp 36.2 C L 07/20/24 14:29 Pulse 67 07/20/24 14:29 Resp 16 07/20/24 14:29 BP 149/68 H 07/20/24 14:29 Pulse Ox 97 07/20/24 14:29 O2 Del Method Room Air 07/20/24 14:29 Allergies Allergy/AdvReac Type Severity Reaction Status Date / Time citalopram Allergy Unknown Hives Verified 07/15/24 20:36 hydralazine Allergy Unknown Hives Verified 07/15/24 20:36 Penicillins Allergy Unknown hives Verified 07/19/24 08:15 Home Medications Medication Instructions Recorded Confirmed Type amlodipine 5 mg tablet 5 mg PO DAILY 10/27/19 07/16/24 History bupropion HCl 300 mg 24 hr tablet, 300 mg PO QAM 10/27/19 07/16/24 History extended release clonazepam 1 mg tablet 1 mg PO HS PRN anxiety 10/27/19 07/16/24 History meloxicam 15 mg tablet 15 mg PO DAILY 10/27/19 07/16/24 History metoprolol tartrate 25 mg tablet 25 mg PO DAILY 10/27/19 07/16/24 History omeprazole 20 mg capsule,delayed 40 mg PO DAILY 10/27/19 07/16/24 History release buspirone 15 mg tablet 15 mg PO BID 07/15/24 07/16/24 History evolocumab 140 mg/mL subcutaneous 140 mg subcut .every other week 07/15/24 07/16/24 History pen injector (Ramandeep Springer) furosemide 20 mg tablet 20 mg PO DAILY 07/15/24 07/16/24 History pregabalin 200 mg capsule 200 mg PO Q12H 07/15/24 07/16/24 History semaglutide 0.25 mg or 0.5 mg (2 0.25 mg subcut WEEKLY 07/15/24 07/16/24 History mg/3 mL) subcutaneous pen injector (Ozempic) sildenafil (pulm.hypertension) 20 20 mg PO PRN PRN sexual activity 07/15/24 07/16/24 History mg tablet tadalafil 5 mg tablet 5 mg PO PRN PRN sexual activity 07/15/24 07/16/24 History tamsulosin 0.4 mg capsule 0.4 mg PO DAILY 07/15/24 07/16/24 History atorvastatin 20 mg tablet 20 mg PO DAILY 07/16/24 07/16/24 History carvedilol 3.125 mg tablet 3.125 mg PO BID 07/16/24 07/16/24 History duloxetine 60 mg capsule,delayed 60 mg PO DAILY 07/16/24 07/16/24 History release felodipine 10 mg tablet,extended 10 mg PO DAILY 07/16/24 07/16/24 History release 24 hr fluticasone propionate 50 1 spray intranasal Q12H 07/16/24 07/16/24 History mcg/actuation nasal spray,suspension lisinopril 40 mg tablet 40 mg PO DAILY 07/16/24 07/16/24 History potassium chloride 20 mEq 20 meq PO DAILY 07/16/24 07/16/24 History tablet,extended release (K-Tab) rivaroxaban 20 mg tablet 20 mg PO DAILY 07/16/24 07/16/24 History tizanidine 4 mg capsule 4 mg PO Q6H PRN muscle spasticity 07/16/24 07/16/24 History Laboratory Tests 07/20/24 04:18 WBC 4.7 K/mm3 (4.5-10.0) RBC 3.65 L M/mm3 (4.6-6.20) Hgb 11.1 L g/dL (14.0-18.0) Hct 33.0 L % (42.0-52.0) MCV 90.4 fl (80-100) MCH 30.4 pg (26-34) MCHC 33.6 g/dl (32-36) RDW 15.4 H % (11.5-14.5) Plt Count 166 k/mm3 (150-375) MPV 10.7 H fl (7.4-10.4) Sodium 134 L mmol/L (137-145) Potassium 3.1 L mmol/L (3.4-5.0) Chloride 102 mmol/L (98-107) Carbon Dioxide 24 mmol/L (22-30) Anion Gap 8 mmol/L (4-12) BUN 8 L mg/dL (9-20) Creatinine 0.85 mg/dL (0.7-1.3) Estim Creat Clear Calc 98 ml/min Estimated GFR > 60 (59 - ) Glucose 119 H mg/dL (65-110) Calcium 8.4 mg/dL (8.4-10.2) Total Bilirubin 2.7 H mg/dL (0.2-1.3) AST 66 H U/L (17-59) ALT 135 H U/L (6-50) Alkaline Phosphatase 157 H U/L (38-126) Total Protein 6.0 L g/dL (6.3-8.2) Albumin 3.3 L g/dL (3.5-5.1) Patient hx anesthesia problems: none Family hx anesthesia problems: none Results Review: All pre-operative results and documents have been reviewed as part of the pre-operative evaluation. 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 Sepsis Gram-positive bacteremia Cholelithiasis SIRS (systemic inflammatory response syndrome) HONORIO (obstructive sleep apnea) Balanitis Gout Hyperlipidemia HTN (hypertension) Surgical History Surgical History H/O angioplasty Family History Family History Sibling Diabetes mellitus Family history of mental disorder, Onset Age: 63 Family history of cardiovascular disease, Onset Age: 63 Acute myocardial infarction Family history of malignant neoplasm Mother Family history of mental disorder, Onset Age: 56 Other Family history of seizure disorder Social History Social History Smoking status: Former smoker Alcohol intake: current Drinks per week: 30 Substance use type: does not use Do You Feel Safe in your Home?: Yes Lack of Transportation: No Lack of Food: Never True Current Housing: I Have Housing Concerned About Future Housing: No Difficulty Paying Gas/Electric Bills: No Difficulty Paying for Meds: No Currently Unemployed: No Education: Associate Degree Difficulty w/ Childcare or Family Care: No Spiritual care concerns: No Anes - Eval Final PreProcedure Day of Procedure 07/20/24 15:23 Patient weight: obese Heart: regular rate and rhythm Lungs: clear to auscultation Airway: Mallampati scale Neurological: alert and oriented Last oral intake: >/= 8 hours ASA classification: III Emergent: no Anesthetic plan: proceed Anesthesia type and monitoring: general GIVS and standard monitoring Results Review: All pre-operative results and documents have been reviewed as part of the pre-operative evaluation. Informed Consent: The patient's anesthetic plan and its attendant risks and benefits were discussed with the patient/family/POA. Questions were solicited and answers provided to the satisfaction of the patient/family/POA.
[2024-07-20] MEDS: INDOMETHACIN 50 MG SUPP.RECT RECTAL (15:50)
[2024-07-20 17:53] LABS: Hepatitis E Antibodies IgG NOT DETECTED
[2024-07-20] MEDS: clonazePAM (*CRX) 0.5 MG TABLET 1 MG PO (21:46)
[2024-07-21] MEDS: SODIUM CHLORIDE 0.9% IV 1,000 ML 125 ML IV CONT (01:45)
[2024-07-21 04:37] VITALS: BP 150/68; PULSE 53; RESP 18; TEMP 36.3; O2SAT 98
[2024-07-21 04:54] LABS: Hematocrit 34.7 % (42.0-52.0); Hemoglobin 11.9 g/dL (14.0-18.0); Mean Corpuscular HGB Conc 34.3 g/dl (32-36); Mean Corpuscular Hemoglobin 30.1 pg (26-34); Mean Corpuscular Volume 87.8 fl (80-100); Mean Platelet Volume 10.2 fl (7.4-10.4); Platelet Count Result 189 k/mm3 (150-375); Red Blood Count 3.95 M/mm3 (4.6-6.20); Red Cell Distribution Width 15.1 % (11.5-14.5)
[2024-07-21 05:10] LABS: Anion Gap 8 mmol/L (4-12); Blood Urea Nitrogen 9 mg/dL (9-20); Calcium 8.2 mg/dL (8.4-10.2); Carbon Dioxide 27 mmol/L (22-30); Chloride 100 mmol/L (98-107); Estimated CRCL calculation 91 ml/min; Estimated Glomerular Filt Rate > 60; Glucose 166 mg/dL (65-110); Potassium 3.5 mmol/L (3.4-5.0); Sodium 135 mmol/L (137-145)
[2024-07-21] MEDS: metroNIDAZOLE 500 MG TABLET PO (05:52)
--- NOTE | 2024-07-21 06:57 | PM.PNGS ---
Progress Note: A&P Assessment and Plan (1) Choledocholithiasis: Code(s): K80.50 - Calculus of bile duct without cholangitis or cholecystitis without obstruction Status: Acute Assessment and Plan: s/p ERCP c stone removal, sphincterotomy, doing well, long d/w pt and would like to have cholecystectomy during hospital admission if possible Subjective Subjective Date/Time Seen: 07/21/24 06:57 Interval history: feels better, no pain, no N/V, abraham diet Review of Systems Review of Systems: All systems reviewed & are unremarkable except as noted in HPI and below Exam Const: General: cooperative, comfortable and no acute distress Resp: Auscultation: clear to auscultation bilaterally Cardio: Rate: regular rate Rhythm: regular rhythm GI: Inspection: normal to inspection and distended GI Palp: No abdominal tenderness and Yes Soft to palpation Objective Data Vital Signs Vital Signs: Vital Signs - 24 hr 07/20/24 09:15 07/20/24 09:15 07/20/24 14:29 Temperature 36.2 C L Pulse Rate 70 67 Respiratory Rate 16 Blood Pressure 149/68 H Pulse Oximetry 97 Oxygen Delivery Room Air Room Air Oxygen Flow Rate 07/20/24 16:26 07/20/24 16:36 07/20/24 16:46 Temperature 36.6 C Pulse Rate 72 72 66 Respiratory Rate 16 16 20 Blood Pressure 141/81 H 147/82 H 150/80 H Pulse Oximetry 100 100 98 Oxygen Delivery Non-Rebreather Mask Non-Rebreather Mask Nasal Cannula Oxygen Flow Rate 10 10 4 07/20/24 16:56 07/20/24 17:06 07/20/24 17:16 Temperature Pulse Rate 65 66 63 Respiratory Rate 20 18 18 Blood Pressure 150/80 H 153/80 H 153/74 H Pulse Oximetry 98 98 99 Oxygen Delivery Nasal Cannula Room Air Room Air Oxygen Flow Rate 4 07/20/24 17:26 07/20/24 17:40 07/20/24 18:15 Temperature 36.8 C Pulse Rate 66 60 92 Respiratory Rate 20 16 Blood Pressure 130/63 155/73 H Pulse Oximetry 98 95 Oxygen Delivery Room Air Oxygen Flow Rate 07/20/24 20:14 07/20/24 21:55 07/21/24 01:50 Temperature 36.3 C L Pulse Rate 60 69 Respiratory Rate 18 Blood Pressure 151/67 H Pulse Oximetry 98 97 Oxygen Delivery CPAP CPAP Oxygen Flow Rate 07/21/24 04:37 Temperature 36.3 C L Pulse Rate 53 L Respiratory Rate 18 Blood Pressure 150/68 H Pulse Oximetry 98 Oxygen Delivery Oxygen Flow Rate Intake/Output Intake/Output: Intake & Output 07/18/24 07/19/24 07/20/24 07/21/24 23:59 23:59 23:59 23:59 Intake Total 4050 2560 2600 1000 Balance 4050 2560 2600 1000 Meds/Results Medications: Active Medications Generic Name Dose Route Start Last Admin Trade Name Freq PRN Reason Stop Dose Admin Amlodipine Besylate 5 mg 07/16/24 12:55 07/20/24 09:14 Amlodipine Besylate 5 Mg Tablet PO 5 mg DAILY OLGA Administration Atorvastatin Calcium 20 mg 07/16/24 12:55 07/20/24 09:15 Atorvastatin 20 Mg Tablet PO 20 mg DAILY OLGA Administration Bupropion HCl 300 mg 07/16/24 12:55 07/20/24 09:15 Bupropion Hcl Xl (24 Hr) 150 Mg Tabcr PO 300 mg QAM OLGA Administration Buspirone HCl 15 mg 07/16/24 21:00 07/20/24 21:47 Buspirone Hcl 5 Mg Tablet PO 15 mg Q12HR OLGA Administration Carvedilol 3.125 mg 07/16/24 17:00 07/20/24 18:15 Carvedilol 3.125 Mg Tablet PO 3.125 mg BIDWM OLGA Administration Clonazepam 1 mg 07/16/24 12:34 07/20/24 21:46 Clonazepam (*Crx) 0.5 Mg Tablet PO 1 mg HS PRN Administration anxiety Duloxetine HCl 60 mg 07/16/24 12:55 07/20/24 09:14 Duloxetine Hcl 60 Mg Capsule.Dr PO 60 mg DAILY OLGA Administration Felodipine 10 mg 07/16/24 12:55 07/20/24 09:14 Felodipine 5 Mg Tab Cr PO 08/16/24 12:54 10 mg DAILY OLGA Administration Fluticasone Propionate 1 spray 07/16/24 21:00 07/20/24 21:47 Fluticasone Propionate 0.05% Na Spr 16 Gm Btl (*Bkc) NASAL 1 spray Q12HR OLGA Administration Sodium Chloride 1,000 mls @ 125 mls/hr 07/16/24 02:25 07/21/24 02:28 Normal Saline Iv IV CONT Not Given .Q8H OLGA Ceftriaxone Sodium 1 gm in 50 mls @ 100 mls/hr 07/17/24 01:00 07/20/24 22:17 Rocephin 1 Gm/Ns 50 Ml IVPB Infused QHS OLGA Infusion Lidocaine 1 patch 07/20/24 09:00 07/20/24 10:11 Lidocaine 5% Patch TRANSDERM Not Given DAILY [facility] Metronidazole 500 mg 07/19/24 15:00 07/21/24 05:52 Metronidazole 500 Mg Tablet PO 500 mg Q8HR OLGA Administration Ondansetron HCl 4 mg 07/16/24 02:21 07/18/24 20:38 Ondansetron Inj 4 Mg/2 Ml Vial IV PUSH 4 mg Q4H PRN Administration Nausea Pantoprazole Sodium 40 mg 07/16/24 12:55 07/20/24 09:15 Pantoprazole 40 Mg Tablet PO 08/16/24 12:54 40 mg DAILY OLGA Administration Potassium Chloride 40 meq 07/20/24 09:00 07/20/24 09:15 Potassium Chloride 20 Meq Packet (For Liquid) PO Not Given DAILY [facility] Pregabalin 200 mg 07/16/24 12:35 07/20/24 21:46 Pregabalin (*Crx) 50 Mg Capsule PO 200 mg Q12HR OLGA Administration Tamsulosin HCl 0.4 mg 07/16/24 12:55 07/20/24 09:15 Tamsulosin Hcl 0.4 Mg Capsule PO 0.4 mg DAILY OLGA Administration Tizanidine HCl 4 mg 07/16/24 12:44 Tizanidine Hcl 4 Mg Tablet PO Q6H PRN muscle spasticity Radiology Results: ITS Impressions Abdomen/Pelvis CT 07/15/24 23:21 IMPRESSION: Cholelithiasis prominence of the common bile duct. Epiploic appendagitis. Diverticulosis without surrounding inflammatory change. Hepatomegaly. Borderline splenomegaly. MRCP 07/19/24 08:14 IMPRESSION: 1. Cholelithiasis and choledocholithiasis with 6 mm stone at the distal aspect of the common bile duct with mild dilation the common hepatic duct 8 mm but with no intrahepatic biliary ductal dilation. 2. Epiploic appendagitis along the distal descending colon. 3. Diverticulosis. Endo Retro Cholangiopancreatogram 07/20/24 16:49 IMPRESSION: 1. Fluoroscopy utilized during ERCP with likely redemonstration of a stone in the distal common bile duct. Please refer to the ERCP procedure note for additional details. Labs Labs: Laboratory Results - last 24 hr 07/16/24 07/21/24 10:12 04:19 WBC 6.0 RBC 3.95 L Hgb 11.9 L Hct 34.7 L MCV 87.8 MCH 30.1 MCHC 34.3 RDW 15.1 H Plt Count 189 MPV 10.2 Sodium 135 L Potassium 3.5 Chloride 100 Carbon Dioxide 27 Anion Gap 8 BUN 9 Creatinine 0.92 Estim Creat Clear Calc 91 Estimated GFR > 60 Glucose 166 H Calcium 8.2 L Hepatitis E IgG Ab Not detected Hepatitis E IgM Ab Not detected
--- NOTE | 2024-07-21 07:47 | PM.DS ---
DS: Admitting Diagnosis Discharge Date 07/21/2024 Admitting Diagnosis Abdominal Pain DS: Summary Hospital Course Reason for hospitalization: Copied from [facility] 07/16: 73-year-old male with PMH/o alcohol abuse,afib, s/p ablation, HLD, ED, BPH admitted for further work up for abd pain and elevated liver enzymes. He reports that he had 3 episodes of chills over the past 4 weeks- describes them as shivering so hard, she was shaking , weakness, painful joints, and abdominal pain. He went to urgent care and was told to report to ed to [facility]. Patient reports his urinalysis did not indicate any abnormalities. He endorses a history of an abdominal ileus, fatty liver disease and a cardiac ablation couple of months ago. Patient denies any chest pain, shortness of breath, acute back pain. He is following with MD at [facility] and recently had fibroscan-he doesnot have any results yet. He used to drink daily- beer-but cut way down. NOw only drinks on a weekends but at tomes, can drink 6-8 beers or more. He said it never bothered him or interfered with his life and he never try to quit and was unable. He just drinks beer because it taste good and he enjoys it. Patient has an access to [facility] my chart: In March 2024, patient's ALT, AST, alk-phos, bilirubin, and creatinine were all within normal range. 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 IN ED: CBC, CMP, lipase, TSH, proBNP, COVID/influenza/RSV swab, PTT, INR, troponin He received 1 L normal saline IV bolus, Zofran 4 mg IV Results: Pt's CT scan indicates Cholelithiasis prominence of the common bile duct. Epiploic appendagitis. Diverticulosis without surrounding inflammatory change. Hepatomegaly. Borderline splenomegaly. GI consulted. Hospital Course: (1) Alcohol abuse: (2) Hypothyroid: (3) Hyponatremia: (4) GERD (gastroesophageal reflux disease): (5) Elevated liver enzymes: (6) Acute kidney injury: (7) S/P ablation of atrial fibrillation: 73-year-old male with PMH/o alcohol abuse,afib, s/p ablation, HLD, ED, BPH admitted for further work up for abd pain and elevated liver enzymes. 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 He was drinking alcohol most days but decreased since he was told about liver disease. He mostly drink on a weekend now but can drink 3-8 beers at a time. GI and surgery consulted. elevated liver enzymes, bilirubin 6. Hepatitis panel negative. CT scan showed cholelithiasis and prominent bile duct. Leukocytosis 14.6->12.3. Treated for pain and nausea, IV fluids during admission. Blood cultures 07/16 04/11 positive for Strep gallol ssp pasteururaneus, repeat blood cultures negative 07/17. Started on Empiric Vancomycin, Ceftriaxone and Flagyl during admission. MRSA swab negative 07/17. Continued Levaquin and Flagyl for a 10 day total course. Discussed with ID pharmacist. Chronic problems afib-Home meds: coreg and xarelto htn hld-continue statin bph- flomax Xarelto for afib continued but held for possible OR Abdomen/Pelvis CT 07/15/24 23:21 IMPRESSION: Cholelithiasis prominence of the common bile duct. Epiploic appendagitis. Diverticulosis without surrounding inflammatory change. Hepatomegaly. Borderline splenomegaly. MRCP 07/19/24 08:14 IMPRESSION: 1. Cholelithiasis and choledocholithiasis with 6 mm stone at the distal aspect of the common bile duct with mild dilation the common hepatic duct 8 mm but with no intrahepatic biliary ductal dilation. 2. Epiploic appendagitis along the distal descending colon. 3. Diverticulosis. Endo Retro Cholangiopancreatogram 07/20/24 16:49 IMPRESSION: 1. Fluoroscopy utilized during ERCP with likely redomonstration of a stone in the distal common bile duct. Please refer to the ERCP procedure note for additional details. Status at Discharge Cognitive/behavioral status at discharge: A&Ox4 Time Spent with Patient Time attestation: Total time spent providing and/or coordinating discharge services:37 minutes Discussed with ID pharmacist Exam Narrative: General - Awake and alert. No acute distress Eyes - PERRLA, EOM intact ENT - No thrush, No erythema Neck - No noticeable or palpable swelling Lymph Nodes - No lymphadenopathy Cardiovascular - RRR no m/r/g, no JVD Lungs: Clear to auscultation, No wheezing, use of accessory muscles, no crackles Skin - Skin warm and dry, no wounds or rashes Abdomen - Normal bowel sounds, abdomen soft and nontender Extremities - No edema, cyanosis or clubbing Musculoskeletal - 5/5 strength, normal range of motion, no swollen or erythematous joints. Neurological – Alert and oriented x 3, CN 2-12 grossly intact. Psych: Normal mood and affect DS: Data Data Completed and Pending Labs on day of discharge: Labs from last 24 hours 07/21/24 07/16/24 04:19 10:12 WBC 6.0 RBC 3.95 L Hgb 11.9 L Hct 34.7 L MCV 87.8 MCH 30.1 MCHC 34.3 RDW 15.1 H Plt Count 189 MPV 10.2 Sodium 135 L Potassium 3.5 Chloride 100 Carbon Dioxide 27 Anion Gap 8 BUN 9 Creatinine 0.92 Estim Creat Clear Calc 91 Estimated GFR > 60 Glucose 166 H Calcium 8.2 L Hepatitis E IgG Ab Not detected Hepatitis E IgM Ab Not detected Preliminary micro results at discharge 07/17/24 12:06 Blood Culture - Preliminary Blood 07/17/24 12:01 Blood Culture - Preliminary Blood 07/16/24 03:03 Blood Culture - Preliminary Blood Strep gallol ssp pasteuruanus Discharge Plan Discharge Attending physician on discharge: Jagruti Morocho Consulting providers: Levon Ruiz; Susan Rodas; Hardy Zavaleta; Andrez Steiner; Madai Mendoza; Sri Morocho; Lorena Goodman; Eduardo Valdes; Sandhya Jerez; Raya Real; Daniel Gudino Discharging Clinician: Jagruti Morocho Anticipated Discharge Date/Time: 07/21/24 09:50 Patient Disposition: Home Activity: july shower Diet: low fat Discharge Instructions: Dr. Bettencourt's office is arranging surgery the . Continue Xarelto until Friday (You will need to hold Xarelto for 72 hours prior to surgery so hold dose on Friday.) They will call you for a preop interview and additional instructions. Continue a low fat diet until instructed otherwise by Dr. Rodas. Patient Instructions: Antibiotic Form, Rivaroxaban (By mouth), Low Fat Diet (DC) Patient Language: Mozambican Stand Alone Forms: General Discharge Information Follow-up/Referrals: Susan Rodas MD [Physician] - 1 Week (Follow up with Dr. Bettencourt for surgery, cholecystectomy) Discharge Medications: Continued tamsulosin 0.4 mg capsule 0.4 mg PO DAILY Patient Comments: QAM furosemide 20 mg tablet 20 mg PO DAILY Patient Comments: QAM buspirone 15 mg tablet 15 mg PO BID tadalafil 5 mg tablet 5 mg PO PRN PRN (Reason: sexual activity) sildenafil (pulm.hypertension) 20 mg tablet 20 mg PO PRN PRN (Reason: sexual activity) pregabalin 200 mg capsule 200 mg PO Q12H Repatha SureClick 140 mg/mL pen injector 140 mg SUBCUT .every other week Patient Comments: next dose 07/17/2024 Ozempic 0.25 mg or 0.5 mg (2 mg/3 mL) pen injector 0.25 mg SUBCUT WEEKLY clonazepam 1 mg tablet 1 mg PO DAILY PRN (Reason: anxiety) bupropion HCl 300 mg tablet extended release 24 hr 300 mg PO QAM amlodipine 5 mg tablet 5 mg PO DAILY Patient Comments: HS atorvastatin 20 mg tablet 20 mg PO DAILY Patient Comments: HS lisinopril 40 mg tablet 40 mg PO DAILY Patient Comments: HS rivaroxaban 20 mg tablet 20 mg PO DAILY Patient Comments: HS Rx Instructions: must administer with evening meal carvedilol 3.125 mg tablet 3.125 mg PO BID Rx Instructions: with meals felodipine 10 mg tablet extended release 24 hr 10 mg PO DAILY Patient Comments: QAM duloxetine 60 mg capsule,delayed release(DR/EC) 60 mg PO DAILY Patient Comments: QAM fluticasone propionate 50 mcg/actuation spray,suspension 1 spray INTRANASAL Q12H PRN (Reason: nasal congestion) tizanidine 4 mg capsule 4 mg PO Q6H PRN (Reason: muscle spasticity) Rx Instructions: do not exceed 3 doses per 24 hrs potassium chloride [K-Tab] 20 mEq tablet extended release 20 meq PO DAILY Discontinued meloxicam 15 mg tablet 15 mg PO DAILY No Action omeprazole 40 mg capsule,delayed release(DR/EC) 40 mg PO HS oxycodone-acetaminophen [Percocet] 5-325 mg tablet 0.5 - 1 tablet PO Q4H PRN (Reason: pain) Qty: 10 0RF docusate sodium 100 mg Capsule 100 mg PO BID Qty: 30 0RF Date of admission: 07/18/24 15:25 Primary Care Provider: Mirian Wallace Admitting Provider: Frances Gtz Attending physician on admission: Jagruti Morocho Condition: Stable Hospitalist MIPS Heart Failure (Exclusion) Patient has history of Heart Transplant or Left Ventricular Assistive Device?: No IF YES, STOP HERE Heart Failure (Qualifier) Patient has current or prior documentation of LVEF less than or equal to 40%, or mod/servere depressed LVSF?: No IF NO, STOP HERE
[2024-07-21] MEDS: ATORVASTATIN 20 MG TABLET PO (08:29)
[2024-07-21] MEDS: buPROPion HCL XL (24 HR) 150 MG TABCR 300 MG PO (08:29)
[2024-07-21] MEDS: DULoxetine HCL 60 MG CAPSULE.DR PO (08:29)
[2024-07-21] MEDS: PREGABALIN (*CRX) 50 MG CAPSULE 200 MG PO (08:29)
[2024-07-21] MEDS: FELODIPINE 5 MG TAB CR 10 MG PO (08:29)
[2024-07-21] MEDS: amLODIPine BESYLATE 5 MG TABLET PO (08:29)
[2024-07-21] MEDS: busPIRone HCL 5 MG TABLET 15 MG PO (08:29)
[2024-07-21 08:30] VITALS: PULSE 64
[2024-07-21] MEDS: FLUTICASONE PROPIONATE 0.05% NA SPR 16 GM BTL (*BKC) 1 SPRAY NASAL (08:30)
[2024-07-21] MEDS: POTASSIUM CHLORIDE 20 MEQ PACKET (FOR LIQUID) 40 MEQ PO (08:30)
[2024-07-21] MEDS: PANTOPRAZOLE 40 MG TABLET PO (08:30)
[2024-07-21] MEDS: TAMSULOSIN HCL 0.4 MG CAPSULE PO (08:30)
[2024-07-21] MEDS: carvediloL 3.125 MG TABLET PO (08:30)
[2024-07-21] MEDS: levoFLOXacin 750 MG TABLET PO (08:37)
--- NOTE | 2024-07-21 10:42 | P.PNAN_ITS ---
Anes - Prog Note Post-Op Date/Time: 07/21/24 10:42 Cardiovascular status: normal Respiratory status: normal Airway patency: baseline Mental status: baseline Post-Op hydration status: normal Vital Signs: Last Vital Signs Temp 36.3 C L 07/21/24 04:37 Pulse 64 07/21/24 08:30 Resp 18 07/21/24 04:37 BP 150/68 H 07/21/24 04:37 Pulse Ox 98 07/21/24 04:37 O2 Del Method Room Air 07/21/24 08:30 O2 Flow Rate 4 07/20/24 16:56 Pain Score (VAS): 0 I/O: Intake & Output 07/20/24 07/21/24 07/21/24 23:59 07:59 15:59 Intake Total 1320 1000 240 Balance 1320 1000 240 Laboratory Tests 07/21/24 04:19 07/21/24 04:19 07/16/24 07/21/24 10:12 04:19 WBC 6.0 RBC 3.95 L Hgb 11.9 L Hct 34.7 L MCV 87.8 MCH 30.1 MCHC 34.3 RDW 15.1 H Plt Count 189 MPV 10.2 Sodium 135 L Potassium 3.5 Chloride 100 Carbon Dioxide 27 Anion Gap 8 BUN 9 Creatinine 0.92 Estim Creat Clear Calc 91 Estimated GFR > 60 Glucose 166 H Calcium 8.2 L Hepatitis E IgG Ab Not detected Hepatitis E IgM Ab Not detected Post-procedural complaints: none Patient Feedback: Patient satisfied with anesthetic care.
--- NOTE | 2024-07-21 16:32 | PN_ITS ---
This report was moved to the correct visit on 07/29/2024. The original report was signed by Levon Ruiz MD on 07/21/24 0021. Progress Note: A&P Assessment and Plan (1) Elevated liver enzymes: Code(s): R74.8 - Abnormal levels of other serum enzymes Status: Acute Assessment and Plan: s/p ercp, removed stone patient received iv antibiotics and will complete oral he is doing great, no pain liver enzymes trending down interval cholecystectomy next week he is going home (2) Choledocholithiasis: Code(s): K80.50 - Calculus of bile duct without cholangitis or cholecystitis without obstruction Status: Acute Assessment and Plan: treated with ercp (3) Sepsis: Code(s): A41.9 - Sepsis, unspecified organism Status: Acute Assessment and Plan: resolved, patient had bacteremia due to cholangitis treated with iv abx and ercp (4) Cholangitis: Code(s): K83.09 - Other cholangitis Status: Acute (5) 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: Code(s): A49.1 - Streptococcal infection, unspecified site Status: Acute (6) Cholelithiasis: Code(s): K80.20 - Calculus of gallbladder without cholecystitis without obstruction Status: Acute Assessment and Plan: surgery next week Subjective Date/time seen: 07/21/24 07:42 Interval history: s/p ercp with successful removal of stone after sphincterotomy he is comfortable and going home today, he decided to have cholecystectomy next week as outpatient Review of Systems Review of Systems: All systems reviewed & are unremarkable except as noted in HPI and below Exam Const: General: cooperative, comfortable and no acute distress HENMT: Face/Nose/Sinus: Normal nares present Eyes: Sclera: sclerae normal Neck: Neck: supple Resp: Effort & Inspection: normal respiratory effort Auscultation: clear to auscultation bilaterally Cardio: Rate: regular rate Rhythm: regular rhythm GI: Inspection: normal to inspection and distended GI Palp: No abdominal tenderness and Yes Soft to palpation Skin: General skin exam: no rashes or lesions noted Neuro: Speech: normal speech Motor exam (neuro): 5/5 motor strength present throughout Extrem: General: normal to inspection Psych: Mental Status: mental status grossly normal Please be advised this is a medical document. It is intended for [id number] communication. It is written in medical language and may contain unfamiliar abbreviations or verbiage. Medical documents are intended to carry relevant information, facts as evident, and the clinical opinion of the practitioner at the time of the encounter. This report may have been done utilizing a voice recognition system. Attempts have been made to correct errors. However, there may be uncorrected grammatical, spelling, and recognition errors present. The file time of this note does not necessarily represent the time the patient was seen. Report Initialized date/time: Levon Ruiz MD 07/21/24 / 1632 Electronically signed by: Levon Ruiz MD 07/21/24 3501 [facility]
== END 2024-07-21 10:40 | disposition home or self-care (01) | DRG 872 ==
LOC: ANHED 07-16 02:21 → ANH3MEDSUR 07-16 04:04 → ANH2MED 07-16 04:40
PROVIDERS: Internal Medicine Gastroenterology; Nurse Practitioner; Nurse Practitioner Family; Student in an Organized Health Care Education/Training Program; Admitting Provider Internal Medicine; Emergency Provider Registered Nurse; Visit Provider Nurse Practitioner Acute Care
PROC: 0FC98ZZ Extirpation of Matter from Common Bile Duct, Via Natural or Artificial Opening Endoscopic (ICD-10-PCS; CPT 43260; principal; 2024-07-20 15:00)
DX: A41.9 Sepsis, unspecified organism (principal); E87.1 Hypo-osmolality and hyponatremia; K80.64 Calculus of gallbladder and bile duct with chronic cholecystitis without obstruction; K83.09 Other cholangitis; N17.9 Acute kidney failure, unspecified; I48.20 Chronic atrial fibrillation, unspecified; F10.10 Alcohol abuse, uncomplicated; B95.4 Other streptococcus as the cause of diseases classified elsewhere; K76.0 Fatty (change of) liver, not elsewhere classified; E03.9 Hypothyroidism, unspecified; K21.9 Gastro-esophageal reflux disease without esophagitis; R74.8 Abnormal levels of other serum enzymes; N40.0 Benign prostatic hyperplasia without lower urinary tract symptoms; I10 Essential (primary) hypertension; E78.5 Hyperlipidemia, unspecified; F32.A Depression, unspecified; F41.9 Anxiety disorder, unspecified; G47.33 Obstructive sleep apnea (adult) (pediatric); K59.09 Other constipation; Z98.890 Other specified postprocedural states; Z86.79 Personal history of other diseases of the circulatory system
CPT/HCPCS: 36415; 74019; 74177; 74183; 74329; 76376; 80048; 80053; 80074; 80076; 80202; 80307; 81001; 81003; 82077; 83605; 83690; 83880; 84145; 84439; 84443; 84480; 84484; 85025; 85027; 85610; 85730; 86308; 86645; 86790; 87040; 87181; 87497; 87529; 87637; 87641; 93005; 96361; 96374; 96376; 99213; 99285; A9270; A9577; G0378; G0463; J0696; J1100; J1596; J1836; J2003; J2405; J2704; J3370; J7030; J7120; Q9966; Q9967

== ENCOUNTER 2024-07-23 10:40 | Inpatient (IN) | payer MEDICARE, SELFPAY ==
[2024-07-22 14:55] VITALS: BMI 37.2
--- NOTE | 2024-07-22 15:32 | PC.NURSE ---
Report to the Outpatient Waiting Room, entrance under the green pavilion located off [facility], at time ___10:00AM____ on date ___07/28/24____. Planned Procedure Time: ___12:00PM .? Time changes happen often and if your time is changed the preop area will call you the afternoon before. - You and your visitor will be asked to self-screen and do not enter if you have any COVID symptoms. Please call surgeon if you need to reschedule. - A mask is optional within the hospital at this time. Patients may have clear liquids (water, carbonated beverages, clear teas, apple juice) until 3 hours prior to surgery (9:00AM) with a maximum of 20 ounces. - No food from midnight until time of surgery and no smoking, or chewing tobacco (or any form of nicotine). No chewing gum, candy or mints. Take only the following medications with a SIP of water on the morning of surgery: BUPROPION, BUSPIRONE, CARVEDILOL, DULOXETINE, FELODIPINE, PREGABALIN_ DO NOT STOP ANY OF YOUR OTHER PRESCRIPTION MEDICATIONS PRIOR TO SURGERY EXCEPT THE FOLLOWING Hold all vitamins and supplements for 3 days per anesthesiologist- LAST DOSE 07/24/24. OZEMPIC IS ALREADY ON HOLD. Medications to discontinue per physician ___HOLD XERALTO & MELOXICAM 3 DAYS PRE-OP PER DR COURTNEY Date to take last dose 07/24/24. Please no make-up, nail montserratian, hairspray, perfume, deodorant, or body powder the day of surgery.? No jewelry (including any body piercings) or valuables the day of surgery, leave them at home.? Please take a shower or bath the night before, or the morning of, surgery with an antibacterial soap.? Wear comfortable, loose fitting clothing.? - Jewelry must be removed prior to entering the operating room.? Rings and piercings that are not removed may be cut off. - The hospital will not accept responsibility for valuables.? - Please leave all valuables, including medications, at home the day of surgery. If you are going home after surgery, a licensed rolloff driver must drive you home.? - NO public transportation without another adult if you receive anesthesia. - We recommend that an adult stay with you for 24 hours following discharge. - We also recommend that you do not drive, make important decision, drink alcoholic beverages, or take any drugs that were not prescribed by your health care provider for at least 24 hours after your discharge time. Follow any additional instructions given to you from your surgeon. Telephone instructions given to ____PATIENT and asked if any additional questions and then verbalized understanding. Patient advised to call surgeon office or pre surgery nurse liaison [phone] if any additional questions.
[2024-07-23] VITALS (12 sets, daily range): BP systolic 63–110; BP diastolic 40–79; PULSE 72–88; RESP 8–22; TEMP 36.4–37.1; O2SAT 94–100; BMI 35.9
--- NOTE | ~2024-07-23 | XR_ITS ---
EXAMINATION: XR chest 1V portable DATE: 07/23/2024 11:09 INDICATION: Weakness TECHNIQUE: frontal view of the chest was obtained. COMPARISON: Chest radiograph dated 04/02/2013 FINDINGS: The lungs remain clear with no focal airspace opacities, pulmonary edema, pleural effusion or pneumot horax. The cardiomediastinal silhouette is normal. IMPRESSION: 1. No acute cardiopulmonary disease. Reviewed, dictated and finalized at location A.
--- NOTE | ~2024-07-23 | CT_ITS ---
EXAMINATION: CT abdomen pelvis w con DATE: 07/23/2024 12:30 INDICATION: Abdominal pain TECHNIQUE: Computed tomography (CT) of the abdomen and pelvis was performed with 100 mL Omnipaque-350 intravenous contrast. Automated exposure control and iterative reconstruction technique were employe d. The dose-length product was 1501.38 mGy-cm. COMPARISON: 07/15/2024 FINDINGS: Lung bases are clear. Heart size is normal. Atherosclerotic coronary artery calcification is and aort ic valve calcific lesion. No pericardial or pleural effusion. Small sliding-type hiatal hernia. Multi ple calcified gallstones in the otherwise normal-appearing nondilated gallbladder. Liver, spleen, rogel creas, bilateral adrenal glands and kidneys are normal. Moderate diverticulosis is most prominent in the ascending colon without adjacent comparison to suggest diverticulitis. There is a thin rim surrou nding ovoid region of macroscopic fat attenuation along the posterior margin of the descending colon consistent with age-indeterminate epiploic appendagitis. Bladder is normal. Prostatomegaly measuring 6.7 x 5.5 cm. No free intraperitoneal gas or fluid. No pathologically enlarged abdominal or pelvic ly mphadenopathy. IMPRESSION: 1. Age-indeterminate epiploic appendagitis along the descending colon. No other acute intra-abdominal /pelvic process. 2. Cholelithiasis. 3. Diverticulosis. 4. Prostatomegaly. Reviewed, dictated and finalized at location A. IMPRESSION: 1. Age-indeterminate epiploic appendagitis along the descending colon. No other acute intra-abdominal/pelvic process. 2. Cholelithiasis. 3. Diverticulosis. 4. Prostatomegaly.
--- NOTE | ~2024-07-23 | NM_ITS ---
EXAMINATION: NM GI bleeding DATE: 07/30/2024 13:40 INDICATION: Dark stools. TECHNIQUE: 22.0 mCi Tc 99m in vitro labeled red cells administered intravenously. Scintigraphic imag es of the abdomen were obtained through one hour. FINDINGS: No pattern of abnormal activity is seen in the abdomen or pelvis to suggest gastrointestina l hemorrhage. IMPRESSION: 1. No scintigraphic evidence for active gastrointestinal bleeding. Reviewed, dictated and finalized at location A.
--- NOTE | ~2024-07-23 | CT_ITS ---
CT brain wo con Ordering provider: Janine Khalil APRN History: 73 years Male with . RAHMAN . Comparison: None. Technique: CT of the head without contrast. Radiation reduction technique utilized.The dose-length product was 681) normal. No acute mGy-cm. FINDINGS: BRAIN PARENCHYMA AND CSF SPACES: No midline shift, mass effect or hemorrhage. The brain parenchyma a nd CSF spaces are otherwise normal. VISUALIZED PARANASAL SINUSES: Well aerated. MASTOIDS: Well aerated. BONES: The bones appear intact. SOFT TISSUES: Visualized nasopharynx is normal. Superficial soft tissues are normal. IMPRESSION: No acute intracranial findings. Reviewed, dictated and finalized at location A.
--- NOTE | ~2024-07-23 | CT_ITS ---
CTA chest abdomen pelvis Ordering provider: Janine Khalil History: . Bleed? . Comparison: July 23, 2024 at 12:19 PM Technique: CT angiogram chest, abdomen and pelvis was performed following timed intravenous injection of contrast. Thin slice axial images and reformatted coronal images were obtained. Three dimensional reformatted images of the chest were also obtained using a [employer] workstation. Radiation reduction t echnique utilized.The dose-length product was 605.33 mGy-cm. 100 mL Omnipaque 350 was given IV. FINDINGS: CHEST: --THORACIC AORTA: Mild atheromatous disease. No aneurysm, dissection or mediastinal hematoma. --GREAT VESSELS: Normal as visualized. --PULMONARY ARTERIES: No pulmonary embolus. --VISUALIZED THORACIC INLET: Normal. --MEDIASTINUM: Coronary arteries: Mild atheromatous disease. Heart/other: The heart is not enlarged. Lymph nodes: No mediastinal or hilar adenopathy. --LUNGS: No pulmonary nodules or masses. No infiltrates or effusions. No pneumothorax. --MUSCULOSKELETAL: Superficial soft tissues: The superficial soft tissues are normal. Bones: Age appropriate degenerative changes of the spine. ABDOMEN/PELVIS: --MUSCULOSKELETAL: Bones: Age appropriate degenerative changes of the spine. Bilateral sacroiliitis. Superficial soft tissues: The superficial soft tissues are normal. --UPPER ABDOMINAL ORGANS: Liver: Fat infiltration. Gallbladder: Cholelithiasis. Spleen: Normal. Stomach/duodenum: Small sliding hiatus hernia. Pancreas: Normal. Adrenals: Normal. Kidneys: lobation is seen bilaterally. --PELVIC ORGANS: The bladder is normal. No bladder stones. Contrast is seen in the urinary bladder. E nlarged prostate --BOWEL AND MESENTERY: Colon: No evidence of diverticulitis. No definite leaking is seen in the large or small bowel.. . Epiploic appendagitis in the descending colon. Normal appendix. Small Bowel: Normal. No obstruction. Peritoneum/mesentery: No free air or free fluid. No mesenteric lymphadenopathy. --RETROPERITONEUM: No retroperitoneal lymphadenopathy. --ARTERIES: ABDOMINAL AORTA: Mild atheromatous disease. No aneurysm or dissection. RENAL ARTERIES: Atherosclerotic changes at the origin bilaterally CELIAC AXIS: Atherosclerotic changes at the origin. SMA: Atherosclerotic changes at the origin. LAUREANO: Normal. ILIAC AND VISUALIZED FEMORAL ARTERIES: Bilateral atherosclerotic changes. MESENTERIC ARTERIES: Normal. IMPRESSION: CHEST: 1. No evidence of aneurysm or dissection. 2. No acute cardiopulmonary pathology. ABDOMEN/PELVIS: 1. No evidence of active bleeding seen. 2. Atherosclerotic changes at the origin of all branches of the aorta. 3. Cholelithiasis. 4. Small sliding hiatus hernia. 5. Other appearances are unchanged from previous examination. Reviewed, dictated and finalized at location A.
--- NOTE | 2024-07-23 10:46 | ECG_ITS ---
Test Date: 2024-07-23 10:51:02 Measurements Intervals Crescent Rate: 82 P: 35 MN: 220 QRS: -50 QRSD: 117 T: 61 QT: 377 QTc: 442 Interpretive Statements SINUS RHYTHM WITH FIRST DEGREE AV BLOCK LEFT ANTERIOR FASCICULAR BLOCK [QRS AXIS <= -45, QR IN I, RS IN II] Compared to ECG 07/16/2024 01:03:57 NO SIGNIFICANT CHANGES Electronically Signed On 07-23-2024 11:28:03 CDT by Andrez Steiner M.D.
[2024-07-23 10:58] LABS: Basophils Percent Auto 0.6 % (0.2-1.2); Eosinophils Absolute Auto 0.2 K/mm3 (0-0.3); Eosinophils Percent Auto 2.2 % (0-4.4); Hematocrit 32.5 % (42.0-52.0); Hemoglobin 10.8 g/dL (14.0-18.0); Immature Granulocyte Absolute 0.44 K/mm3 (0.00-0.031); Immature Granulocyte Percent A 6.1 % (0-0.5); Lymphocytes Absolute Auto 2.01 K/mm3 (0.9-3.2); Lymphocytes Percent Auto 27.8 % (18.3-44.2); Mean Corpuscular HGB Conc 33.2 g/dl (32-36); Mean Corpuscular Hemoglobin 30.4 pg (26-34); Mean Corpuscular Volume 91.5 fl (80-100); Mean Platelet Volume 10.4 fl (7.4-10.4); Monocytes Absolute Auto 0.7 K/mm3 (0.1-0.6); Monocytes Percent Auto 9.9 % (2.6-8.5); Neutrophils Absolute Auto 3.9 K/mm3 (1.3-6.7); Neutrophils Percent Auto 53.4 % (45.5-73.1); Platelet Count Result 266 k/mm3 (150-375); Red Blood Count 3.55 M/mm3 (4.6-6.20); Red Cell Distribution Width 15.3 % (11.5-14.5); White Blood Count 7.2 K/mm3 (4.5-10.0)
[2024-07-23 11:08] LABS: Alanine Aminotransferase 95 U/L (6-50); Albumin Level 3.5 g/dL (3.5-5.1); Alkaline Phosphatase 210 U/L (38-126); Anion Gap 7 mmol/L (4-12); Aspartate Amino Transferase 64 U/L (17-59); Bilirubin,Total 1.6 mg/dL (0.2-1.3); Blood Urea Nitrogen 38 mg/dL (9-20); Calcium 8.9 mg/dL (8.4-10.2); Carbon Dioxide 26 mmol/L (22-30); Chloride 100 mmol/L (98-107); Estimated CRCL calculation 75 ml/min; Estimated Glomerular Filt Rate > 60; Glucose 164 mg/dL (65-110); Sodium 133 mmol/L (137-145)
--- OUTSIDE RECORDS SUMMARY | 2024-07-23 11:15 | XMS_ITS | Clinical Summary ---
Author Organization [facility] Address [address] [place] [address] Care Team Providers Care Cook Barbecue Name Role Phone Unavailable Primary Care Provider Unavailabl e Source Comments [facility],non-owned Affiliates and Associated Physician Practices is amultiple site organization consisting of ambulatory clinics and hospital sitesin [place], [place], [place] and [place]. This disclosure is being madepursuant to the Care Everywhere program and may not contain all information available regarding this patient. 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 Gender Identity Not on file Sexual Orientation [...] Comments DERMATOPATHOLOGY Routine 05/04/2024 10:0 3 AM HEALTH TYPE TECHNICIAN Neoplasm of uncertain behavior of skin from Last 3 Months Results * DERMATOPATHOLOGY (05/04/2024 10:03 AM HEALTH TYPE TECHNICIAN) Case Report Dermatopathology Report Case: [id number] Authorizing Provider: Jose Brito MD Collected: 05/04/2024 10:03 AM Ordering Location: [facility] - Received: 05/07/2024 06:38 AM DermPath Lab Pathologist: Jana Brown MD Specimen: Skin, left anterior jaw 12:56 PM HEALTH TYPE TECHNICIAN DERMATOPATHOLOGY LABORATORY Final Diagnosis Specimen A. SKIN, left anterior jaw: DERMAL SCAR, PRESENT AT THE BASE RESIDUAL SQUAMOUS PROLIFERATION NOT IDENTIFIED (L90.5) 12:56 PM HEALTH TYPE TECHNICIAN DERMATOPATHOLOGY LABORATORY Clinical History Atypical Squamous Proliferation Prior biopsy 12:56 PM HEALTH TYPE TECHNICIAN DERMATOPATHOLOGY LABORATORY Gross Description Specimen A: Received is one formalin filled container labeled with the patient's name and designated left anterior jaw. The specimen consists of a shave biopsy measuring [id number] mm. Jar 0. 12:56 PM HEALTH TYPE TECHNICIAN DERMATOPATHOLOGY LABORATORY Microscopic Description Specimen A. SKIN, left anterior jaw: There are elongated blood vessels, some of which are oriented perpendicular to the skin surface, which is present at the base of the specimen. No residual squamous proliferation is identified. 5 12:56 PM [facility] DERMATOPATHOLOGY LABORATORY Disclaimer An external and internal positive and negative controls are appropriate for the histochemical, immunohistochemical and immunofluorescence stain(s) in this case (if any), except where stated explicitly. The performance characteristics of the stain(s) cited in this report were developed and its performance characteristic determined by the Dermatopathology Laboratory at [facility], directed by Dr. Collin Mckeon. These tests need not be, and therefore are not, approved by the [place] Food and Drug Administration. The tests are used for clinical purposes. Billing Codes Specimen Charges Stain Charges 41222 1 5 12:56 PM [facility] DERMATOPATHOLOGY LABORATORY Embedded Images 5 12:56 PM [facility] DERMATOPATHOLOGY LABORATORY Pathology/Cytolo gy TISSUE SPECIMEN FROM SKIN / Unknown 05/04/2024 10:03 AM HEALTH TYPE TECHNICIAN 05/07/2024 6:38 AM HEALTH TYPE TECHNICIAN Jose Brito MD LAB - PATHOLOGY/CYTOLOGY BISI GARCIA Final Result DERMATOPATHOLOGY LABORATORY [facility] - Department of Dermatology [facility] Medicine [address] [place] [address], [address] [phone] from Last 3 [place] [address] [place] [address] [employer] MANAGED MEDICARE ADV
--- OUTSIDE RECORDS SUMMARY | 2024-07-23 11:15 | XMS_ITS | Encounter Summary ---
Author Organization [facility] Address [address] [place] [address] Care Team Providers Care Fiscal Accounting Clerk Name Role Phone Unavailable Primary Care Provider Unavailabl e Encounter Details Date Type Department Care Team (Late st Contact Info) Description 05/04/2024 Lab Requisition [facility] - DermPath Lab [address] [place] [id number] Jose Brito MD [facility] DERMATOLOGY [address] [place] [phone] Neoplasm of uncertain behavior of skin Social History Tobacco Use Types Packs/Day Years Used Date Smoking Tobacco: Never Assessed Sex and Gender Information Value Date Recorded Sex Assigned at Not on file Legal Sex 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 Gender Identity Not on file Sexual Orientation Not on file documented as of this encounter Plan of Treatment Not on file documented as of this encounter Procedures Procedure Name Priority Date/Time Associated Diagnosis Comments DERMATOPATHOLOGY Routine 05/04/2024 10:0 3 AM NET DEVELOPER PROGRAMMER Neoplasm of uncertain behavior of skin documented in this encounter Results * DERMATOPATHOLOGY (05/04/2024 10:03 AM NET DEVELOPER PROGRAMMER) Case Report Dermatopathology Report Case: [id number] Authorizing Provider: Jose Brito MD Collected: 05/04/2024 10:03 AM Ordering Location: [facility] - Received: 05/07/2024 06:38 AM DermPath Lab Pathologist: Jana Brown MD Specimen: Skin, left anterior jaw 12:56 PM NET DEVELOPER PROGRAMMER DERMATOPATHOLOGY LABORATORY Final Diagnosis Specimen A. SKIN, left anterior jaw: DERMAL SCAR, PRESENT AT THE BASE RESIDUAL SQUAMOUS PROLIFERATION NOT IDENTIFIED (L90.5) 12:56 PM [facility] DERMATOPATHOLOGY LABORATORY Clinical History Atypical Squamous Proliferation Prior biopsy 12:56 PM [facility] DERMATOPATHOLOGY LABORATORY Gross Description Specimen A: Received is one formalin filled container labeled with the patient's name and designated left anterior jaw. The specimen consists of a shave biopsy measuring [id number] mm. Jar 0. 12:56 PM [facility] DERMATOPATHOLOGY LABORATORY Microscopic Description Specimen A. SKIN, left anterior jaw: There are elongated blood vessels, some of which are oriented perpendicular to the skin surface, which is present at the base of the specimen. No residual squamous proliferation is identified. 12:56 PM [facility] DERMATOPATHOLOGY LABORATORY Disclaimer An external and internal positive and negative controls are appropriate for the histochemical, immunohistochemical and immunofluorescence stain(s) in this case (if any), except where stated explicitly. The performance characteristics of the stain(s) cited in this report were developed and its performance characteristic determined by the Dermatopathology Laboratory at [facility], directed by Dr. Collin Mckeon. These tests need not be, and therefore are not, approved by the [place] Food and Drug Administration. The tests are used for clinical purposes. Billing Codes Specimen Charges Stain Charges 98571 1 12:56 PM [facility] DERMATOPATHOLOGY LABORATORY Embedded Images 12:56 PM [facility] DERMATOPATHOLOGY LABORATORY Pathology/Cytolo gy TISSUE SPECIMEN FROM SKIN / Unknown 05/04/2024 10:03 AM NET DEVELOPER PROGRAMMER 05/07/2024 6:38 AM [facility] us Jose Brito MD LAB - PATHOLOGY/CYTOLOGY BISI GARCIA Final Result DERMATOPATHOLOGY LABORATORY [facility] - Department of Dermatology [address], [address] [place] [address], [facility] [phone] documented in this encounter Visit Diagnoses Diagnosis Neoplasm of uncertain behavior of skin documented in this encounter
--- OUTSIDE RECORDS SUMMARY | 2024-07-23 11:15 | XMS_ITS | Encounter Summary ---
Author Organization [facility] Address [address] [place] [address] Care Team Providers Care Home Care Liaison Name Role Phone Unavailable Primary Care Provider Unavailabl e Encounter Details Date Type Department Care Team (Late st Contact Info) Description 01/22/2024 Lab Requisition [facility] - DermPath Lab [address] [place] [phone] Birdie Brito APRN-CNP [facility] DERMATOLOGY [address] [place] [phone] Neoplasm of uncertain behavior of skin Social History Tobacco Use Types Packs/Day Years Used Date Smoking Tobacco: Never Assessed Sex and Gender Information Value Date Recorded Sex Assigned at Not on file Legal Sex Male 6:23 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 Gender Identity Not on file Sexual Orientation Not on file documented as of this encounter Plan of Treatment Not on file documented as of this encounter Procedures Procedure Name Priority Date/Time Associated Diagnosis Comments DERMATOPATHOLOGY Routine 01/22/2024 12:0 0 AM MOSAIC WORKER Neoplasm of uncertain behavior of skin documented in this encounter Results * DERMATOPATHOLOGY (01/22/2024 12:00 AM MOSAIC WORKER) Case Report Dermatopathology Report Case: [id number] Authorizing Provider: Birdie Brito, Collected: 01/22/2024 12:00 AM ELIGIBILITY SERVICES REPRESENTATIVE-INTERNAL CONTROL ANALYST Ordering Location: [facility] - Received: 01/23/2024 10:18 AM DermPath Lab Pathologist: Henrietta Carvalho MD Specimens: A) - Skin, left anterior jaw B) - Skin, left posterior jaw 2:41 PM MOSAIC WORKER DERMATOPATHOLOGY LABORATORY Final Diagnosis Specimen A. 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 SKIN, left posterior jaw: GRANULOMATOUS DERMATITIS CONSISTENT WITH A RUPTURED CYST OR HAIR FOLLICLE (L72.0) DERMAL FIBROSIS (L90.5) 4 2:41 PM [facility] [[email or web address]] DERMATOPATHOLOGY LABORATORY Clinical History BCC 4 2:41 PM [facility] [[email or web address]] DERMATOPATHOLOGY LABORATORY Gross Description Specimen A: Received [...] measuring 9x8x2 mm. Jar 0. 2:41 PM [facility] [[email or web address]] DERMATOPATHOLOGY LABORATORY Microscopic Description Specimen A. SKIN, [...] is surrounding dermal fibrosis. 4 2:41 PM [facility] [[email or web address]] DERMATOPATHOLOGY LABORATORY Disclaimer An external and internal [...] purposes. Billing Codes Specimen Charges Stain Charges 47256 63932 1 1 4 2:41 PM MOSAIC WORKER DERMATOPATHOLOGY LABORATORY Embedded Images 4 2:41 PM MOSAIC WORKER DERMATOPATHOLOGY LABORATORY Pathology/Cytology TISSUE SPECIMEN FROM SKIN / Unknown 01/22/2024 01/23/2024 10:18 AM MOSAIC WORKER Miscellaneous samples (specimen) TISSUE SPECIMEN FROM SKIN / Unknown 01/22/2024 01/23/2024 10:18 AM MOSAIC WORKER us Birdie Brito ELIGIBILITY SERVICES REPRESENTATIVE-INTERNAL CONTROL ANALYST LAB - PATHOLOGY/CY TOLOGY ORDERABLES Final Result DERMATOPATHOLOGY LABORATORY [facility] - Department of Dermatology [facility] Special[facility] Medicine [address] [place] [address], [address] [phone] documented in this encounter Visit Diagnoses Diagnosis Neoplasm of uncertain behavior of skin documented in this encounter
--- OUTSIDE RECORDS SUMMARY | 2024-07-23 11:15 | XMS_ITS ---
Author Organization [facility] Address [address] [facility] [place] [address] Care Team Providers Care Foster Care Case Manager Name Role Phone Cristina DEAN KELLY Primary Care Provider Unavaila Shukri Nice Unavailable [phone] REASON FOR VISIT FOLLOW UP Encounters Encounter Location Date Provider Diagnosis [facility] [address] [facility] [place] [address] 12/17/2023 Shukri Shannon PLAN OF TREATMENT No Information
--- OUTSIDE RECORDS SUMMARY | 2024-07-23 11:15 | XMS_ITS | Patient Health Record ---
Author Organization [facility] Address [address] [place] [address] [place] [address] Care Team Providers Care Computer Game Tester Name Role Phone Cristina DEAN KELLY Primary Care Provider Shukri Smith Unavailable [phone] ALLERGIES Allergen (clinical drug ingredient) Drug/Non Drug [...] Active Diclofenac Sodium 1 % as directed Ceramics Engineer ally Four times a day for 30 [...] calories (E66.01) Active confirmed Morbid obesity (disorder) (925413652) Problem Fear of injections and transfusions (F40.231) Active confirmed Fear of medical treatment (942406476) Problem Chronic pain syndrome (G89.4) Active confirmed Chronic vitaliy n syndrome (348046213) Problem Osteoarthritis of hip, unspecified (M16.9) Active confirmed Osteoarthritis of hip (724294031) Problem Bilateral primary osteoarthritis of knee (M17.0) Active confirmed Osteoarthritis of knee (099508539) Problem Unilateral primary osteoarthritis, right knee (M17.11) Active confirmed Primary osteoarthritis (066436742) Problem Unilateral primary osteoarthritis of first carpometacarpal joint, left hand (M18.12) Active confirmed Localized, primary osteoarthritis of the hand (091564326) Problem Primary osteoarthritis, left shoulder (M19.012) Active confirmed Localized, primary osteoarthritis of the shoulder region (546987304) Problem Primary osteoarthritis, 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) Active confirmed Localized, primary osteoarthritis of the wrist (659838195) Problem Unspecified osteoarthritis, unspecified site (M19.90) Active confirmed Osteoarthritis (438482218) Problem Pain in left shoulder (M25.512) Active confirmed Shoulder joint pain (960626046) Problem Pain in unspecified shoulder (M25.519) Active confirmed Shoulder joint pain (209461206) Problem Pain in unspecified wrist (M25.539) Active confirmed Pain in wrist (12276393) Problem Pain in unspecified hip (M25.559) Active confirmed Arthralgia of t he pelvic region and thigh (118086097) Problem Pain in right knee (M25.561) Active confirmed Pain of right knee region (finding) (011834249553762) Problem Sacroiliitis, not elsewhere classified (M46.1) Active confirmed Solitary sacroiliitis (685056770) Problem Spondylosis without myelopathy or radiculopathy, cervical region (M47.812) Active confirmed Cervical spondylosis without myelopathy (670030582) Problem Spondylosis without myelopathy or radiculopathy, cervicothoracic region (M47.813) Active confirmed Cervical spondylosis without myelopathy (975115645) Problem Spondylosis without myelopathy or radiculopathy, lumbar region (M47.816) Active confirmed Lumbosacral spondylosis without myelopathy (75577940) Problem Spondylosis without myelopathy or radiculopathy, lumbosacral region (M47.817) Active confirmed Lumbosacral spondylosis without myelopathy (disorder) (16887069) Problem Spinal stenosis, cervical region (M48.02) Active confirmed Spinal stenosis in cervical region (62759591) Problem Intervertebral disc disorders with radiculopathy, lumbar region (M51.16) Active confirmed Radiculopathy d ue to lumbar intervertebral disc disorder (055715890964980) Problem Other intervertebral disc degeneration, lumbar region (M51.36) Active confirmed Degeneration of lumbar intervertebral disc (59119298) Problem Other intervertebral disc degeneration, lumbosacral region (M51.37) Active confirmed Degeneration of lumbosacral intervertebral disc (52652165) Problem Radiculopathy, cervical region (M54.12) Active confirmed Cervical radiculopathy (40748371) Problem Radiculopathy, cervicothoracic region (M54.13) Active confirmed Cervical radiculopathy (33127921) Problem Radiculopathy, lumbar region (M54.16) Active confirmed Lumbar radiculopathy (512167756) Problem Radiculopathy, lumbosacral region (M54.17) Active confirmed Lumbosacral radiculopathy (9119268) Problem Trochanteric bursitis, unspecified hip (M70.60) Active confirmed Enthesopathy of hip region (87554419) Problem Postlaminectomy syndrome, not elsewhere classified (M96.1) Active confirmed Post-lami nectomy syndrome (13804699) Problem Osseous stenosis of neural canal of lumbar region (M99.33) Active confirmed Spinal stenosis of lumbar region (30069113) Problem Intervertebral disc stenosis of neural canal of lumbar region (M99.53) Active confirmed Spinal stenosis of lumbar region (81268627) Problem tank terminal gauger (current) use of anticoagulants (Z79.01) Active confirmed Long-term curre nt use of anticoagulant (530378974) Problem Spinal stenosis, lumbar region with neurogenic claudication (M48.062) Active confirmed Neurogenic claudication (776484336) Problem Myalgia, other site (M79.18) Active confirmed Muscle pain (50087519) VITAL SIGNS Heart Rate 70 /min 11/17/2023 [...] Date Provider Diagnosis [facility] [address] [facility] [place] [address] 08/20/2023 Shukri Shannon Spondylosis without myelopathy or [...] intervertebral disc degeneration, lumbar region M51.36 ; tank terminal gauger (current) use of anticoagulants Z79.01 and Chronic pain syndrome G89.4 [facility] [address] [place] [address] 08/29/2023 Shukri Stynowick Spondylosis without myelopathy or radiculopathy, lumbar region M47.816 and Spondylosis without myelopathy or radiculopathy, lumbosacral region M47.817 [facility] [address] [place] [address] 09/16/2023 Shukri Stynowick Spondylosis without myelopathy or radiculopathy, lumbar region M47.816 and Spondylosis without myelopathy or radiculopathy, lumbosacral region M47.817 [facility] [address] [place] [address] 09/30/2023 Shukri Stynowick Spondylosis without myelopathy or [...] intervertebral disc degeneration, lumbar region M51.36 ; tank terminal gauger (current) use of anticoagulants Z79.01 and Chronic pain syndrome G89.4 [facility] [address] [place] [address] 10/15/2023 Shukri Stynowick Spondylosis without myelopathy or radiculopathy, lumbar region M47.816 and Spondylosis without myelopathy or radiculopathy, lumbosacral region M47.817 [facility] [address] [place] [address] [place] [address] 10/16/2023 Shukri Shannon [facility] [address] [place] [address] [place] [address] 2023 Shukri Shannon [facility] [address] [place] [address] [place] [address] 11/17/2023 Shukri Shannon Spondylosis without myelopathy or [...] intervertebral disc degeneration, lumbar region M51.36 ; group home (current) use of anticoagulants Z79.01 and Chronic pain syndrome G89.4 [facility] [address] [place] [address] 12/17/2023 Shukri Shannon ASSESSMENTS Encounter Date Diagnosis Assessment Notes Treatment Notes Treatment Clinical Notes 08/20/2023 Unilateral primary osteoarthritis of first carpometacarpal [...] or radiculopathy, lumbosacral region (ICD-10 - M47.817) 09/16/2023 Spondylosis without myelopathy or radiculopathy, lumbar [...] is agreeable to proceeding at this time. 10/15/2023 Spondylosis without myelopathy or radiculopathy, [...] of his pain at that time. 11/17/2023 Spondylosis without myelopathy or radiculopathy, cervical region (ICD-10 - M47.812) 09/30/2023 Spondylosis without myelopathy or radiculopathy, cervical region (ICD-10 - M47.812) 08/20/2023 Spondylosis without myelopathy or radiculopathy, cervical region (ICD-10 - M47.812) 08/20/2023 Postlaminectomy syndrome, not elsewhere classified (ICD-10 - M96.1) 09/30/2023 Postlaminectomy syndrome, not elsewhere classified (ICD-10 - M96.1) 11/17/2023 Postlaminectomy syndrome, not elsewhere classified (ICD-10 - M96.1) 11/17/2023 Radiculopathy, lumba r region (ICD-10 - M54.16) 09/30/2023 Radiculopathy, lumba r region (ICD-10 - M54.16) 08/20/2023 Radiculopathy, lumba r region (ICD-10 - M54.16) 08/20/2023 Radiculopathy, lumbosacral region (ICD-10 - M54.17) 09/30/2023 Radiculopathy, lumbosacral region (ICD-10 - M54.17) 11/17/2023 Radiculopathy, lumbosacral region (ICD-10 - M54.17) 11/17/2023 Unilateral primary osteoarthritis, right knee (ICD-10 - M17.11) 08/20/2023 Unilateral primary osteoarthritis, right knee (ICD-10 - M17.11) 09/30/2023 Unilateral primary osteoarthritis, right knee (ICD-10 - M17.11) 08/20/2023 Radiculopathy, cervical region (ICD-10 - M54.12) 09/30/2023 Radiculopathy, cervical region (ICD-10 - M54.12) 11/17/2023 Radiculopathy, cervical region (ICD-10 - M54.12) 11/17/2023 Spondylosis without myelopathy or radiculopathy, cervicothoracic region (ICD-10 - M47.813) 09/30/2023 Spondylosis without myelopathy or radiculopathy, cervicothoracic region (ICD-10 - M47.813) 08/20/2023 Spondylosis without myelopathy or radiculopathy, cervicothoracic region (ICD-10 - M47.813) 08/20/2023 Radiculopathy, cervicothoracic region (ICD-10 - M54.13) 09/30/2023 Radiculopathy, cervicothoracic region (ICD-10 - M54.13) 11/17/2023 Radiculopathy, cervicothoracic region (ICD-10 - M54.13) 11/17/2023 Spinal stenosis, cervical region (ICD-10 - M48.02) 09/30/2023 Spinal stenosis, cervical region (ICD-10 - M48.02) 08/20/2023 Spinal stenosis, cervical region (ICD-10 - M48.02) 08/20/2023 Other intervertebral disc degeneration, lumbar region (ICD-10 - M51.36) 09/30/2023 Other intervertebral disc degeneration, lumbar region (ICD-10 - M51.36) 11/17/2023 Other intervertebral disc degeneration, lumbar region (ICD-10 - M51.36) 11/17/2023 tank terminal gauger (current) use of anticoagulants (ICD-10 - Z79.01) 09/30/2023 group home (current) use of anticoagulants (ICD-10 - Z79.01) [...] to notify his primary care physician and/or warp tester to obtain clearance prior to discontinuing this medication. 08/20/2023 tank terminal gauger (current) use of anticoagulants (ICD-10 - Z79.01) [...] to notify his primary care physician and/or warp tester to obtain clearance prior to discontinuing this medication. 08/20/2023 Chronic pain syndrom e (ICD-10 - G89.4) 09/30/2023 Chronic pain syndrom e (ICD-10 - G89.4) 11/17/2023 Chronic pain syndrom e (ICD-10 - [...] MRI : Cervical Spine without Contrast (7 4947) 02/04/2022 MRI : Lumbar Spine with and without Cont rast (23976) 12/10/2022 MRI : Lumbar Spine without contrast (721 48) 02/04/2022 MRI : Lumbar Spine without contrast (721 48) 04/14/2020 XRAY right shoulder 04/14/2020 [facility] Results 08/29/2021 Insurance Providers Payer Name Payer Address Payer Phone Subscriber Number Group Number Insured Name Patient Relationship to Insured Coverage Start Date Coverage End Date [employer] MEDICARE ADVANTAGE [address] [place] [address] [id number] AYLA HOLLIS Self - patient is the [...]
--- OUTSIDE RECORDS SUMMARY | 2024-07-23 11:15 | XMS_ITS | Encounter Summary ---
Author Organization [facility] Address [address] [facility] [place] [address] Care Team Providers Care Web Development Manager Name Role Phone Unavailable Primary Care Provider Unavailabl e Encounter Details Date Type Department Care Team (Late st Contact Info) Description 07/22/2023 Lab Requisition [facility] - DermPath Lab [address] [place] [phone] Birdie Brito APRN-CNP [facility] DERMATOLOGY [address] [place] [phone] Neoplasm of uncertain behavior of skin Social History Tobacco Use Types Packs/Day Years Used Date Smoking Tobacco: Never Assessed Sex and Gender Information Value Date Recorded Sex Assigned at Not on file 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 Gender Identity Not on file Sexual Orientation Not on file documented as of this encounter Plan of Treatment Not on file documented as of this encounter Procedures Procedure Name Priority Date/Time Associated Diagnosis Comments DERMATOPATHOLOGY Routine 07/22/2023 12:0 0 AM CDT Neoplasm of uncertain behavior of skin documented in this encounter Results * DERMATOPATHOLOGY (07/22/2023 12:00 AM CDT) Case Report Dermatopathology Report Case: [id number] Authorizing Provider: Birdie Brito, Collected: 07/22/2023 12:00 AM STEREOPTIC PROJECTION TOPOGRAPHERAPPLE Ordering Location: [facility] - Received: 07/23/2023 02:55 PM DermPath Lab Pathologist: Graciela Cortes MD Specimen: Skin, left lateral faith 12:58 PM CDT DERMATOPATHOLOGY LABORATORY Final Diagnosis Specimen A. 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 The specimen consists of a shave biopsy measuring 10x7x2 mm. Jar 0. 12:58 PM CDT DERMATOPATHOLOGY LABORATORY Microscopic Description Specimen A. SKIN, left lateral faith: The epidermis shows parakeratosis, full thickness disorderly [...] characteristic determined by the Dermatopathology Laboratory at [facility], directed by Dr. Collin Mckeon. These tests need not be, and therefore are not, approved by the [place] Food and Drug Administration. The tests are used for clinical purposes. Billing Codes Specimen Charges Stain Charges 47157 1 12:58 PM CDT DERMATOPATHOLOGY LABORATORY Embedded Images 12:58 PM CDT DERMATOPATHOLOGY LABORATORY Pathology/Cytolog y TISSUE SPECIMEN FROM SKIN / Unknown 07/22/2023 07/23/2023 2:55 PM CDT us Birdie Brito STEREOPTIC PROJECTION TOPOGRAPHER-INVERTED BLOCK OPERATOR LAB - PATHOLOGY/CY TOLOGY ORDERABLES Final Result DERMATOPATHOLOGY LABORATORY [facility] - Department of Dermatology [address], [address] [place] [address], [facility] [phone] documented in this encounter Visit Diagnoses Diagnosis Neoplasm of uncertain behavior of skin documented in this encounter
--- OUTSIDE RECORDS SUMMARY | 2024-07-23 11:15 | XMS_ITS ---
Author Organization [facility] Address [address] [place] [address] [place] [address] Care Team Providers Care Industrial Services Worker Name Role Phone Cristina DEAN KELLY Primary Care Provider Shukri Smith Unavailable [phone] ALLERGIES Allergen (clinical drug ingredient) Drug/Non Drug [...] Active Diclofenac Sodium 1 % as directed Fly Tier ally Four times a day for 30 days 12/10/2022 Active Carvedilol 12.5 MG TAKE 1 TABLET BY ROBIN TH TWICE DAILY WITH MEALS Orally Active [...] Location Date Provider Diagnosis [facility] [address] [place] [phone] 11/17/2023 Shukri Shannon Spondylosis without myelopathy or [...] intervertebral disc degeneration, lumbar region M51.36 ; superintendent terminal (current) use of anticoagulants Z79.01 and Chronic [...] degeneration, lumbar region (ICD-10 - M51.36) 11/17/2023 [facility] (current) use of anticoagulants (ICD-10 - Z79.01) [...] and Follow-up: Follow-up Pl an documented:: Yes [facility] Quality 2020: MIPS Documented:: Compliant
--- OUTSIDE RECORDS SUMMARY | 2024-07-23 11:15 | XMS_ITS | Clinical Summary ---
Author Organization [facility] Address [address] [place] [address] Care Team Providers Care Maintenance Porter Name Role Phone Unavailable Primary Care Provider [...]
--- OUTSIDE RECORDS SUMMARY | 2024-07-23 11:16 | XMS_ITS ---
Author Organization [facility] Address [address] [facility] [place] [address] Care Team Providers Care Test Driller Name Role Phone Cristina DEAN KELLY Primary Care Provider Unavaila Shukri Nice Unavailable [phone] REASON FOR VISIT FOLLOW UP Encounters Encounter Location Date Provider Diagnosis [facility] [address] [place] [address] 2023 Shukri Shannon PLAN OF TREATMENT No Information
--- OUTSIDE RECORDS SUMMARY | 2024-07-23 11:16 | XMS_ITS | Encounter Summary ---
Author Organization [facility] Address [address] [place] [address] Care Team Providers Care Anodic Operator Name Role Phone Mirian Wallace MD Primary Care Provider [phone] Encounter Details Date Type Department Care Team (Latest Contact Info) Description 03/30/2024 Results Follow-Up [facility] GASTROENTEROLOGY - [address] [facility] [address] [address] [facility] [address] [place] [address] Nhan Ortiz, [address] [facility] [address] [place] [address] [place] ABDOMEN LIMITED, HEPATITIS B [...] on file Legal Sex Male 4:59 AM STUDIO PRODUCER Gender Identity Not on file Sexual Orientation Not on file documented as of this encounter Plan of Treatment Upcoming Encounters Date Type Department Care Team (Late st Contact Info) Description 08/11/2024 3:15 PM CDT Office Visit [facility] HEART AND VASCULAR EP AT [facility] [address] [facility] [address] [place] [address] Bill De Anda MD [address] [facility] [address] [place] [address] 08/18/2024 11:30 AM CDT Office Visit [facility] Primary Care - [address] [address] [place] Wallace [place] [id number] [place] [address] 09/15/2024 11:30 AM CDT Office Visit [facility] HEART AND VASCULAR - [place] [id number] [place] [address] Flo Donahue MD [address] [facility] [address] [place] [address] 09/21/2024 11:00 AM CDT Office Visit [facility] Neurology [address] [facility] [address] [place] [address] Ashley Holloway, [facility] [address] [facility] [address] [place] [address] 10/05/2024 1:15 PM CDT Office Visit [facility] GASTROENTEROLOGY - [address] [facility] [address] [address] [facility] [address] [place] [address] Konrad Aburto, [facility] [address] [facility] [address] [place] [address] 11/26/2024 1:00 PM CDT Office Visit [facility] Pulmonology [facility] [address] [facility] [address] [place] [address] Silvio Avalos, [facility] [address] [place] [address] 12/27/2024 1:30 PM CDT Office Visit [facility] HEART AND VASCULAR EP AT [facility] [address] [facility] [address] [place] [address] Guerrero Lind MD [address] [facility] [address] [place] [address] 09/22/2025 11:00 AM CDT Office Visit [facility] Neurology [address] [facility] [address] [place] [address] Carmine Castano MD [address] [facility] [address] [place] [address] documented as of this encounter Visit Diagnoses Not on filedocumented in this encounter Additional Health Concerns Assessment Noted Time PHQ-9 Depression Total Score: 2 08/08/19 24 3:47 PM CDT documented as of this encounter Care Teams Anodic Operator Relationship Specialty Start Date End Date Rodrigo, [place] [address] [address] PCP - General 05/07/12 documented as of this encounter
--- OUTSIDE RECORDS SUMMARY | 2024-07-23 11:16 | XMS_ITS | Clinical Summary ---
Author Organization [facility] Address [address] [place] [address] Care Team Providers Care Lockstitch Zipper Setter Name Role Phone Mirian Wallace MD Primary Care Provider [phone] Allergies Active Allergy Reactions Criticality Noted Date [...] 024 Active fluticasone propionate (FLONASE) 50 mcg/spray [place], Suspension nasal inhaler Administer 1 [place] in each nostril 2 times daily. 16 Gram 5 024 Active felodipine (PLENDIL) 10 mg Extended Release 24 hour tabletIndication s:Paroxysmal atrial fibrillation (CMS/HCC),Benign hypertension,Cor onary artery disease involving nooksack coronary artery of nooksack heart without angina pectoris TAKE 1 TABLET(10 [...] atrial fibrillation (CMS/HCC),Candelario ry artery disease involving nooksack coronary artery of nooksack heart without angina pectoris Take 1 Tablet (20 mg) by mouth daily with supper. 90 Tablet 3 025 Active atorvastatin (LIPITOR) 20 mg tabletIndication s:Mixed hyperlipidemia TAKE 1 TABLET(20 MG) BY MOUTH DAILY 90 Tablet 1 025 Active lisinopriL (PRINIVIL) 40 mg tabletIndication s:Benign hypertension,Cor onary artery disease involving nooksack coronary artery of nooksack heart without angina pectoris TAKE 1 TABLET(40 [...] migh t be different from the original. Macerator Operator [facility] Last AWV 11/09/15 RH Problem Noted Date [...] 05/10/2020 Assessment & Plan (05/10/2020 12:23 PM CURBER): Worsening. He underwent a recent MRI - There is significant foramen stenosis. He has been having injections with some relief. Enteritis 02/21/2020 Moderate alcohol use disorder 01/07/2018 PAD (peripheral artery disease) 06/12/2017 Assessment & Plan (05/10/2020 12:19 PM CURBER): Stable. He status post procedures, peripheral stents in both legs. Continue secondary prevention. . 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 We discussed and reviewed the following issues Glucose control He has been following his home glucoses and weight. His last A1C is: Lab Results Component Value Date/Time HGBA1C 7.2 (H) 12/18/2016 04:36 AM LMAJ6OOEH 5.4 09/24/2019 12:46 PM Wt Readings from [...] blockage of another artery (Dr. Mcmahon) at [facility]. Type 2 diabetes mellitus without complication 12/19/19 12 02/06/2018 Bruising 02/06/2018 Encounters Date Type Department Care Team Description 07/20/2024 Abstract [facility] Primary Care - [address] [address] Mirian Wallace MD 07/14/2024 11:30 AM CDT Video Visit [facility] Psychiatry Town and [address] [place] [phone] Rashawn Olvera DO Recurrent major depressive disorder, in full remission; Generalized anxiety disorder 07/14/2024 Abstract [facility] Care - [facility] [id number] [place] [address] [address] [place] [phone] Mirian Wallace MD 07/13/2024 External Device Data STL ABSTRACTION Provider, Abstract 07/13/2024 External Device Data STL ABSTRACTION Provider, Abstract 07/13/2024 Abstract [facility] Gastroenterology [facility] [address] [facility] [address] [place] [phone] Al Cooper MD 07/13/2024 Refill [facility] HEART AND VASCULAR - [place] [phone] [place] [address] [address] [place] [phone] Flo Donahue MD Benign hypertension 07/10/2024 Refill [facility] Psychiatry [facility] and [address] [place] [address] Rashawn Olvera DO Recurrent major depressive disorder, in full remission 07/08/2024 Telephone [facility] GASTROENTEROLOGY - [address] [facility] 102 [address] [facility] [address] [place] [phone] Nhan Ortiz DO PA for Rezdiffra 07/06/2024 1:10 PM CDT Office Visit [facility] GASTRO[facility]OLOGY - [address] [facility] [address] [phone] Nhan Ortiz DO Elevated LFTs (Primary Dx); Obesity (BMI 35.0-39.9 without comorbidity); Moderate alcohol use disorder (CMS/HCC); Metabolic dysfunction-associa farshad steatotic liver disease (MASLD) 06/25/2024 Refill [facility] Primary Care - [facility] [id number] [place] [address] [address] [place] [phone] Mirian Wallace MD 06/23/2024 2:30 PM CDT Office Visit [facility] AND [facility]ULAR EP AT [facility] [address] [facility] [address] [place] [address] Bill De Anda MD Other persistent atrial fibrillation (CMS/HCC) (Primary Dx); Typical atrial flutter (CMS/HCC); Benign hypertension 06/08/2024 External Device Data STL ABSTRACTION Provider, Abstract 06/07/2024 Refill [facility] HEART AND [facility]ULAR - [address] [phone] Flo Donahue MD Mixed hyperlipidemia; Benign hypertension; Coronary artery disease involving nooksack coronary artery of nooksack heart without angina pectoris 05/28/[address] [phone] Mirian Wallace MD 05/18/[address] [phone] Mirian Wallace MD 05/14/2024 10:30 AM CURBER Office Visit [facility] Primary Care Same Day [address] [phone] Valerie Tapia FNP Liver fibrosis (Primary Dx); Generalized body aches; Other fatigue; Abnormal urine color 05/11/2024 External Device Data STL ABSTRACTION Provider, Abstract 05/11/2024 External Device Data STL ABSTRACTION Provider, Abstract 05/05/2024 Orders Only [address] [address] Mirian Wallace MD 05/05/[address] [address] Mirian Wallace MD 04/28/2024 Chart Note [facility] HEART [address] [phone] Flo Donahue MD from Last 3 Months Immunizations Immunization Administration Dates Next Due (ADACEL/BOOSTRIX)(10 YR UP) TDAP VACCINE, 0.5ML, IM 11/08/2017 (AREXVY)(60 YR UP) RSV, GURJIT MBINANT, PROTEIN SUBUNIT RSVPREF, ADJUVANT RECONSTITUTED, 0.5 ML, PF 01/24/2023 (PFIZER)(12 YR UP) COVID-19 VACCINE - EMERGENCY USE AUTHORIZATION, MRNA, [id number](PF) 30 MCG/0.3 ML IM SUSP 12/07/2020 (PREVNAR [...] 2 LaJeanne Juani Alcohol abuse Sister 3 Jayshree Lino Anxiety Sister 3 Jayshree Lino Heart Attack Sister 3 Jayshree Lino Stroke Sister 3 Jayshree Lino Anxiety Sister 4 MJ Anxiety Sister 5 LaJ Colon Cancer Neg Hx Relation Name Status Comments Daughter Eryn Styles Alive Father Tiara Maternal Grandfather Maternal Grandmother Mother Paternal Grandfather Paternal Grandmother Sister 1 MJ,BS,LJ Sister 2 LaJeanne Juani Alive Sister 3 Jayshree Lino Alive Sister 4 KIRA Alive Sister 5 LaJ Alive Social History Tobacco Use Types Packs/Day [...] on file Legal Sex Male 4:59 AM CURBER Gender Identity Not on file Sexual Orientation Not on file Last Filed Vital Signs Vital Sign Reading Time Taken Comments Blood Pressure 155/79 07/06/2024 12:32 PM CDT Pulse 72 07/06/2024 12:32 PM CDT Temperature 36.3 C (97.4 F) 07/06/2024 12:32 PM CDT Respiratory Rate 18 05/14/2024 10:09 AM CURBER Oxygen Saturation 90% 07/06/2024 12:32 PM CDT Inhaled Oxygen Concentration - - Weight 135.6 kg (299 lb) 07/06/2024 12:32 PM CDT Height 190.5 cm (6' 3) 07/06/2024 12:32 PM CDT Body Mass Index 37.37 07/06/2024 12:32 PM CDT Plan of Treatment Upcoming Encounters Date Type Department Care Team (Late st Contact Info) Description 08/11/2024 3:15 PM CDT Office Visit [facility] EP AT [facility] [address] [facility] [address] [place] [address] Bill De Anda MD [address] [facility] [address] [place] [address] 08/18/2024 11:30 AM CDT Office Visit [facility] Primary Care [facility] [address] [address] [place] [address] [address] 09/15/2024 11:30 AM CDT Office Visit [facility] - [place] [address] [facility] 100 [place] [address] Flo Donahue MD [address] [facility] 2014 [place] [address] 09/21/2024 11:00 AM CDT Office Visit [facility] Neurology [address] [facility] [address] [place] [address] Ashley Holloway, [facility] [address] [facility] [address] [place] [address] 10/05/2024 1:15 PM CDT Office Visit [facility] GASTROENTEROLOGY - [address] [facility] 102 [address] [facility] 102 [place] [address] Konrad Aburto, [facility] [address] [place] [address] 11/26/2024 1:00 PM CDT Office Visit [facility] Pulmonology [facility] [address] [facility] [address] [place] [address] MarceConradoPrashant Silvio Levin, DIVISION ORDER ANALYST [address] [place] [phone] 12/27/2024 1:30 PM CDT Office Visit [facility] EP AT [facility] [address] [facility] [address] [place] [address] Guerrero Lind MD [address] [facility] [address] [facility] [address] [place] [address] 09/22/2025 11:00 AM CDT Office Visit [facility] Neurology [address] [facility] [address] [place] [address] Carmine Castano MD [address] [facility] [address] [place] [address] Health Maintenance Due Date Last [...] season) 2023 12/07/2020, 05/30/2020, 04/19/2020 Medicare Advantage ([place]) Preventative Visit/Annual Wellness Visit 03/10/2024 08/15/2023, 01/15/2022, [...] history exists Medical Devices Implanted Type Area Operations Accountant Device Identifier Shelf Expiration Date Model / Serial / Lot Vitoss Foam Pack Ba2x 5ml [id number] - [id number] Implanted:Qty : 1 on 04/12/2022 by Aman Justice MD at [facility] Biological N/A: Spine Cervical Anterior NEELAM- SPINE [id number] 04/06/2023 [id number] / / [id number] Tritanium C Anterior Cervical Cage 5 Mm X 12mm X 14mm X 6 Implanted:Qty : 1 on 04/12/2022 by Aman Justice MD at [facility] Cage N/A: Spine Cervical Anterior [employer] [id number] 01/22/2027 [id number] / / [id number] Description:ID : [id number] 21P. All Wyckoff cervical hardware was processed on requisition, [id number]. Tritanium Anterior Cervical Cage Implanted:Qty : 1 on 04/12/2022 by Aman Justice MD at [facility] Cage N/A: Spine Cervical Anterior NEELAM- SPINE 02/17/2023 [id number] / / [id number] Cement Bone Biomet R 1x40 [id number] - [id number] Implanted:Qty : 2 on 10/01/2021 by Ke Bhatt MD at [facility] Right: Knee [employer]SON [employer] 12/08/2023 [id number] / / [id number] Dev Cardiva Vascade Mvp Xl Vvcs 10-12fr 800-1012xl - [id number] Implanted:Qty : 1 on 03/08/2024 by Bill De Anda MD at [facility] Closure Device Right: Groin [employer] [id number] 12/03/2025 800-1012XL / / [id number] Dev Vns Vasc Clsr Vascade Mvp 526-725p-37j - [id number] Implanted:Qty : 1 on 03/08/2024 by Bill De Anda MD at [facility] Closure Device Left: Groin [employer] [id number] 07/20/2025 800-612C-1 0U / / [id number] 2C0O Dev Vns Vasc Clsr Vascade Mvp [id number]-[id number] - [id number] Implanted:Qty : 1 on 03/08/2024 by Bill De Anda MD at [facility] Closure Device Left: Groin [employer] [id number] 07/20/2025 800-612C-1 0U / / [id number] 2C0O Hemostatic Surgifoam Sz100 1973 - [id number] Implanted:Qty : 1 on 06/23/2020 by Aman Justice MD at [facility] Hemostatic Right: Spine Lumbar J&J- [employer] 02/03/20241973 [id number] Hemostatic Surgifoam Sz100 1973 - [id number] Implanted:Qty : 1 on 04/12/2022 by Aman Justice MD at [facility] Hemostatic N/A: Spine Cervical Anterior J&J- [employer] [id number] 12/03/20251973 / [id number] Bearing Vanguard Ant Stab 10x75 747228 - [id number] Implanted:Qty : 1 on 10/01/2021 by Ke Bhatt MD at [facility] Knee Right: Knee [employer] [id number] 06/28/2023 348054 / / [id number] Description:FRANDY BORREGO Comp Fem Vanguard Cr Interlock Rt 75mm [id number] - [id number] Implanted:Qty : 1 on 10/01/2021 by Ke Bhatt MD at [facility] Knee Right: Knee [employer] [id number] 01/02/2031 [id number] / / [id number] Description:FRANDY BORREGO Patella 3peg Series A [id number] - [id number] Implanted:Qty : 1 on 10/01/2021 by Ke Bhatt MD at [facility] Knee Right: Knee [employer] 04/05/2026 [id number] / / [id number] Description:FRANDY BORREGO Comp Tib Cocr Finned 75mm [id number] - [id number] Implanted:Qty : 1 on 10/01/2021 by Ke Bhatt MD at [facility] Knee Right: Knee [employer] 07/28/2031 [id number] / / [id number] Description:FRANDY BORREGO 40mm 2 Level Plate Implanted:Qty : 1 on 04/12/2022 by Aman Justice MD at [facility] Plate N/A: Spine Cervical Anterior NEELAM- SPINE [id number] / STERILIZED APR 12 / LOAD # 8 1 12mmx4.0 Self Tapping Variable Screws Implanted:Qty : 6 on 04/12/2022 by Aman Justice MD at [facility] Screw N/A: Spine Cervical Anterior NEELAM- SPINE [id number] CA / STERILIZED APR 12 / LOAD #1 8 Stent Vasc Supera 6fr Q-[id number]- P6-12/17/2016 Implanted:12/2016 by Flo Donahue MD (Quantity not on file) Stent [facility] [employer] [id number] 01/07/2017 S-65-100-1 20-P6 / / [id number] Description:Prox politeal / right SFA Stent Vasc Supera 6fr [id number]-[id number]- P6-12/17/2016 Implanted:12/2016 by Flo Donahue MD (Quantity not on file) Stent [facility] [id number] 11/07/2017 S-65-100-1 20-P6 / / [id number] Description:right SFA Right Big Toe Titanium Procedures Procedure Name Priority Date/Time Associated Diagnosis Comments CA ECG ROUTINE ECG W/LEAST 12 LDS W/I&R Routine 06/23/2024 3:15 PM CDT Other persistent atrial fibrillation (CMS/HCC) POC URINALYSIS DIPSTICK AUTOMATED Routine 05/14/2024 10:42 AM CURBER Abnormal urine color DIABETES EYE EXAM Routine 04/29/2024 9:00 AM CURBER COLONOSCOPY REPORT 03/31/2024 11 :[address] ABDOMEN PELVIS WO CONTRAST Stat 12/11/2022 11:48 AM CDT Chronic diarrhea Loose bowel movement from Last 3 Months or Most Recently Relevant to Health Maintenance Results * CA ECG ROUTINE ECG W/LEAST 12 LDS W/I&R (06/23/2024 3:15 PM CDT) Narrative [facility] - 06/23/2024 3:15 PM CDT Bill De Anda MD 06/23/2024 3:16 PM Sinus rhythm with first-degree AV block at 68 bpm. CA duration 265 ms. Procedure Note Bill De Anda MD - 06/23/2024 3:15 PM CDT Sinus rhythm with first-degree AV block at 68 bpm. CA duration 265 ms. us Bill De Anda MD ECG ORDERABLES Final Result [facility] CLIA #[id number] [address] [facility], [facility] [address] [place], [place] [phone] * POC URINALYSIS DIPSTICK AUTOMATED (05/14/2024 10:42 AM CURBER) COLOR UA POC Yellow Pale to Dark Yellow [facility] CLARITY UA POC Clear Clear, Other [facility] GLUCOSE UA POC Negative Negative, Normal [facility] BILIRUBIN UA POC Negative Negative [facility] KETONES UA POC Negative Negative [facility] SPECIFIC GRAVITY UA POC 1.015 1.000 - 1.030 [facility] BLOOD UA POC Negative Negative [facility] C LINIC [facility] PH UA POC 7.0 5.0 - 8.0 [facility] CLIN IC [facility] PROTEIN UA POC Negative Negative [facility] UROBILINOGEN UA POC 0.2 <2.0 mg/dL [facility] NITRITE UA POC Negative Negative [facility] LEUKOCYTE ESTERASE UA POC Negative Negative [facility] KIT LOT NUMBER POC 402,017 [facility] KIT EXP DATE POC 10/07/2024 [facility] Urine 05/14/2024 10:4 2 AM CURBER us Valerie Tapia DIVISION ORDER ANALYST POINT OF CARE TESTING Final Re sult Performing Organization Address [facility] Co de Phone Number [facility] CLIA# [id number] [place] [address] * HM DIABETES EYE EXAM (04/29/2024 9:00 AM CURBER) us Mirian Wallace MD HEALTH MAINTENANCE Final Result Performing Organization Address [facility]/ZIP Co de Phone Number [facility] CLIA# [id number] [address] [place] [address] * COLONOSCOPY REPORT (03/31/2024 11:33 AM CURBER) Narrative Procedure Note Nhan Ortiz DO - 03/31/2024 11:33 AM CST [facility] Endoscopy Patient Name: Romario Bonds Procedure Date: [...] pathology results. Procedure Code(s): --- Professional --- 18939, Colonoscopy, flexible; with removal of tumor(s), polyp(s), or other lesion(s) by snare technique 49585, 59, Colonoscopy, flexible; with biopsy, single or multiple CPT copyright 2020 [employer]. All rights reserved. The codes documented in this report are preliminary and upon certified medical coder review may be revised to meet current compliance requirements. Nhan Ortiz DO 03/31/2024 11:30:42 AM This report has been signed electronically. Number of Addenda: [id number], [place] [address] Nhan Ortiz DO GI PROCEDURE ORDERABLES Final Re sult * CT ABDOMEN PELVIS WO CONTRAST (12/11/2022 11:48 AM CDT) Anatomical Region Laterality Modality Abdomen Computed Tomogra phy 12/11/2022 11:5 0 AM CDT Impressions 12/11/2022 12:02 PM CDT IMPRESSION: 1. Epiploic appendagitis of the left colon. 2. Prostatic enlargement with prominent urinary bladder distention. 3. Cholelithiasis. DICTATION LOCATION: Location [address] [place] [address] 12/11/2022 12:02 PM CDT EXAMINATION: CT ABDOMEN [...] [employer] RX Member Subscriber Plan / Payer ( fective 2024-Present) Name:Romario Bonds Relation to Subscriber:Self Name:Romario Bonds Payer ID:Not on file Group ID:[id number] Type:RX Medicare Part D Address: [place] [facility] [address] Advance Directives For more information, please contact: [phone] Documents on File Type Date Recorded Patient Director Of Online Education Expl anation Advance Directive POA 12/19/2016 2:35 [...] 11:01 AM 10/01/2021 5:07 PM Care Teams Lockstitch Zipper Setter Relationship Specialty [place] [address] [address] PCP - General 05/07/12
--- OUTSIDE RECORDS SUMMARY | 2024-07-23 11:16 | XMS_ITS | Encounter Summary ---
Author Organization [facility] Address 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 HEART AND VASCULAR EP AT [facility] [address] [facility] [address] [place] [address] Bill De Anda MD [address] [facility] 2014 [place] [address] 08/18/2024 11:30 AM CDT Office Visit [facility] Primary Care - [facility] [address] [address] [place] [address] [address] 09/15/2024 11:30 AM CDT Office Visit [facility] HEART AND VASCULAR [place] [address] [address] Flo Donahue MD [address] [facility] 2014 [place] [address] 09/21/2024 11:00 AM CDT Office Visit [facility] Neurology [address] [facility] [address] [place] [address] Ashley Holloway, MANAGER WIRELESS [address] [facility] [address] [place] [address] 10/05/2024 1:15 PM CDT Office Visit [facility] GASTROENTEROLOGY - [address] [facility] 102 [address] [facility] 102 [place] [address] Konrad Aburto, [facility] [address] [facility] 102 [place] [address] 11/26/2024 1:00 PM CDT Office Visit [facility] Pulmonology [facility] [address] [facility] [address] [place] [address] Silvio Avalos, [facility] [address] [place] [address] 12/27/2024 1:30 PM CDT Office Visit [facility] HEART AND VASCULAR EP AT [facility] [address] [facility] [address] [place] [address] Guerrero Lind MD [address] [facility] [address] [place] [address] 09/22/2025 11:00 AM CDT Office Visit [facility] Neurology [address] [facility] [address] [place] [address] Carmine Castano MD [address] [facility] [address] [place] [address] documented as of this encounter Visit Diagnoses Not on filedocumented in this encounter Additional Health Concerns Infection Onset Date Last Indicated Resolved Time R/O C. diff 01/23/2024 01/22/2024 01/23/2024 5:28 PM UNDERTAKER HELPER Assessment Noted Time PHQ-9 Depression Total Score: 1 01/12/20 22 12:56 PM CDT documented as of this encounter Care Teams Track Laying Machine Operator Relationship Specialty [place] [address] [facility] [address] [place] [address] PCP - General 05/07/12 documented as of this encounter
--- OUTSIDE RECORDS SUMMARY | 2024-07-23 11:16 | XMS_ITS | Encounter Summary ---
Author Organization [facility] Address [address] [place] [address] Care Team Providers Care Woodworking Bench Carpenter Name Role Phone Mirian Wallace MD Primary Care Provider [phone] Encounter Details Date Type Department Care Team [...] on file Legal Sex Male 4:59 AM YACHT HAND Gender Identity Not on file Sexual Orientation Not on file documented as of this encounter Plan of Treatment Upcoming Encounters Date Type Department Care Team (Late st Contact Info) Description 08/11/2024 3:15 PM CDT Office Visit [facility] HEART AND VASCULAR EP AT [address] [place] [phone] Bill De Anda MD [facility] S [facility] [address] [place] [address] 08/18/2024 11:30 AM CDT Office Visit [facility] Primary Care - [facility] [id number] [place] [address] [place] [address] [phone] 09/15/2024 11:30 AM CDT Office Visit [facility] HEART AND VASCULAR - [place] [id number] [address] [facility] 100 [place] [address] Flo Donahue MD [address] [facility] 2014 [place] [address] 09/21/2024 11:00 AM CDT Office Visit [facility] Neurology [facility] [address] [facility] [address] [place] [address] Ashley Holloway, [facility] [address] [facility] [address] [place] [address] 10/05/2024 1:15 PM CDT Office Visit [facility] GASTROENTEROLOGY - [address] [facility] [address] [phone] Konrad Aburto, [facility] [address] [facility] 102 [place] [address] 11/26/2024 1:00 PM CDT Office Visit [facility] Pulmonology [facility] [address] [facility] [address] [place] [address] Silvio Avalos, [facility] [address] [facility] [phone] 12/27/2024 1:30 PM CDT Office Visit [facility] HEART AND VASCULAR EP AT [facility] [address] [facility] 2014 [place] [address] Guerrero Lind MD [address] [facility] [address] [place] [address] 09/22/2025 11:00 AM CDT Office Visit [facility] Neurology [address] [facility] [address] [place] [address] Carmine Castano MD [address] [facility] [address] [place] [phone] documented as of this encounter Visit Diagnoses Diagnosis Urticaria, unspecified- Primary documented in this encounter Additional Health Concerns Infection Onset Date Last Indicated Resolved Time C Diff Comment:10/26/15 08/08/2017-outside 60 days from last positive culture obtianed.resolved. 10/27/2015 10/27/2015 06/0 03/2017 3:50 PM CDT R/O COVID-19 12/10/2019 12/10/2019 12/13/2019 1:16 AM CDT COVID-19 12/11/2019 12/11/2019 01/10/2020 1:16 AM YACHT HAND R/O C. diff 08/04/2021 08/03/2021 08/04/2021 2:45 PM CDT R/O Respiratory 05/13/2022 05/13/2022 05/14/2022 1 2:32 AM YACHT HAND R/O GI Pathogen 05/13/2022 05/13/2022 05/14/2022 1 2:32 AM YACHT HAND R/O C. diff 12/09/2022 12/09/2022 12/10/2022 1:06 PM CDT R/O C. diff 01/23/2024 01/22/2024 01/23/2024 5:28 PM YACHT HAND documented as of this encounter Care Teams Woodworking Bench Carpenter Relationship Specialty [place] [address] [facility] 100 [place] [address] PCP - General 05/07/12 documented as of this encounter
--- OUTSIDE RECORDS SUMMARY | 2024-07-23 11:16 | XMS_ITS | Encounter Summary ---
Author Organization [facility] Address 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 Gender Identity Not on file Sexual Orientation Not on file documented as of this encounter Plan of Treatment Upcoming Encounters Date Type Department Care Team (Late Contact Info) Description 08/11/2024 3:15 PM CDT Office Visit [facility] HEART AND VASCULAR EP AT [place] [address] [address] [facility] [address] [place] [address] Bill De Anda MD [facility] [address] [facility] 2014 [place] [address] 08/18/2024 11:30 AM CDT Office Visit [facility] Primary Care - [address] [place] [address] [place] [address] [facility] [address] [place] [phone] 09/15/2024 11:30 AM CDT Office Visit [facility] HEART AND VASCULAR - [place] [address] [facility] [address] [place] [phone] Flo Donahue MD [address] [facility] 2014 [place] [address] 09/21/2024 11:00 AM CDT Office Visit [facility] Neurology [facility] [address] [facility] [address] [place] [address] Ashley Holloway, [facility] [address] [facility] [address] [place] [address] 10/05/2024 1:15 PM CDT Office Visit [facility] GASTROENTEROLOGY - [address] [facility] 102 [address] [facility] 102 [place] [address] Konrad Aburto, [facility] [address] [facility] 102 [place] [phone] 11/26/2024 1:00 PM CDT Office Visit [facility] Pulmonology [facility] [address] [facility] [address] [place] [address] Silvio Avalos, [facility] [address] [place] [address] 12/27/2024 1:30 PM CDT Office Visit [facility] HEART AND VASCULAR EP AT [facility] [address] [facility] 2014 [place] [address] Guerrero Lind MD [address] [facility] [address] [place] [address] 09/22/2025 11:00 AM CDT Office Visit [facility] Neurology [address] [facility] [address] [place] [address] Carmine Castano MD [address] [facility] [address] [place] [address] documented as of this encounter Visit Diagnoses Diagnosis Sprain of lumbar region- Primary documented in this encounter Additional Health Concerns Infection Onset Date Last Indicated Resolved Time C Diff Comment:10/26/15 08/08/2017-outside 60 days from last positive culture obtianed.resolved. 10/27/2015 10/27/201503/2017 3:50 PM CDT R/O COVID-19 12/10/2019 12/10/2019 12/13/2019 1:16 AM CDT COVID-19 12/11/2019 12/11/2019 01/10/2020 1:16 AM FLORAL ASSOCIATE R/O C. diff 08/04/2021 08/03/2021 08/04/2021 2:45 PM CDT R/O Respiratory 05/13/2022 05/13/2022 05/14/2022 1 2:32 AM FLORAL ASSOCIATE R/O GI Pathogen 05/13/2022 05/13/2022 05/14/2022 1 2:32 AM FLORAL ASSOCIATE R/O C. diff 12/09/2022 12/09/2022 12/10/2022 1:06 PM CDT R/O C. diff 01/23/2024 01/22/2024 01/23/2024 5:28 PM FLORAL ASSOCIATE documented as of this encounter Care Teams Lead Scientist Relationship Specialty [place] [address] [facility] [address] [place] [address] PCP - General 05/07/12 documented as of this encounter
--- OUTSIDE RECORDS SUMMARY | 2024-07-23 11:16 | XMS_ITS | Encounter Summary ---
Author Organization [facility] Address [address] [place] [address] Care Team Providers Care Office System Analyst Name Role Phone Mirian Wallace MD Primary Care Provider [phone] Reason for Visit * Reason Onset Date Comments Sheduling Procedure 12/18/2023 Encounter Details Date Type Department Care Team (Late st Contact Info) Description 12/18/2023 Telephone [facility] Heart and Vascular - [place] [address] [place] [address] Bill De Anda MD [address] [facility] [address] [place] [address] Sheduling Procedure Social History Tobacco [...] on file 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 Gender Identity Not on file Sexual [...] 08/11/2024 3:15 PM CDT Office Visit [facility] HEART AND VASCULAR EP AT [address] [place] [phone] Bill De Anda MD [address] [place] [address] 2014 [place] [phone] 08/18/2024 11:30 AM CDT Office Visit [facility] Primary Care - [address] [address] Mirian Wallace MD [address] [place] [address] 09/15/2024 11:30 AM CDT Office Visit [facility] HEART AND VASCULAR - [address] [address] Flo Donahue MD [facility] S [facility] 2014 [place] [address] 09/21/2024 11:00 AM CDT Office Visit [facility] Neurology [address] [facility] [address] [place] [address] Ashley Holloway, [facility] [address] [facility] [address] [place] [address] 10/05/2024 1:15 PM CDT Office Visit [facility] GASTROENTEROLOGY - [address] [facility] 102 [address] [facility] 102 [place] [phone] Konrad Aburto, [facility] [address] [facility] 102 [place] [address] 11/26/2024 1:00 PM CDT Office Visit [facility] Pulmonology [facility] [address] [facility] [address] [place] [address] Silvio Avalos, [facility] [address] [facility] [place] [address] 12/27/2024 1:30 PM CDT Office Visit [facility] HEART AND VASCULAR EP AT [facility] [address] [facility] [address] [place] [address] Guerrero Lind MD [address] [facility] [address] [place] [address] 09/22/2025 11:00 AM CDT Office Visit [facility] Neurology [address] [facility] [address] [place] [address] Carmine Castano MD [address] [facility] [address] [place] [address] documented as of this encounter Visit Diagnoses Not on filedocumented in this encounter Additional Health Concerns Infection Onset Date Last Indicated Resolved Time R/O C. 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
--- NOTE | 2024-07-23 11:37 | ED_ITS ---
HPI - General Adult General Chief complaint: Weakness Stated complaint: weakness Time Seen by Provider: 07/23/24 10:56 History of Present Illness HPI narrative: Romario Bonds is a 73-year-old male who reports he was discharged from the hospital 2 days ago. He states that he was admitted last week and it was found to have elevated liver enzymes elevated bilirubin had ERCP completed and we moved the cholelithiasis that was obstructing and he is scheduled for a cholecystectomy next week on the . She was discharged 2 days ago on 2 antibiotics to continue to take he states that when he was discharged he was feeling better however he states over the past 48 hours he has had continued cold sweats worsening last night extreme nausea no vomiting unable to eat or take in liquids because he states he feels so sick to his stomach. He states that he has taken his antibiotics as scheduled and has kept them down but he is very sick to his stomach. He denies any new or worsening pain her abdominal discomfort. His last bowel movement was 2 days ago. Related Data Home Medications ?Medication ?Instructions ?Recorded ?Confirmed ?Last Taken ?Type amlodipine 5 mg tablet 5 mg PO DAILY 10/27/19 07/23/24 07/23/24 History bupropion HCl 300 mg 24 hr tablet, 300 mg PO QAM 10/27/19 07/23/24 07/23/24 History extended release clonazepam 1 mg tablet 1 mg PO DAILY PRN anxiety 10/27/19 07/23/24 Unknown History buspirone 15 mg tablet 15 mg PO BID 07/15/24 07/23/24 07/23/24 History evolocumab 140 mg/mL subcutaneous 140 mg subcut .every other week 07/15/24 07/23/24 07/04/24 History pen injector (Ramandeep Springer) furosemide 20 mg tablet 20 mg PO DAILY 07/15/24 07/23/24 07/23/24 History pregabalin 200 mg capsule 200 mg PO Q12H 07/15/24 07/23/24 07/23/24 History semaglutide 0.25 mg or 0.5 mg (2 0.25 mg subcut WEEKLY 07/15/24 07/23/24 Unknown History mg/3 mL) subcutaneous pen injector (Ozempic) sildenafil (pulm.hypertension) 20 20 mg PO PRN PRN sexual activity 07/15/24 07/23/24 Unknown History mg tablet tadalafil 5 mg tablet 5 mg PO PRN PRN sexual activity 07/15/24 07/23/24 Unknown History tamsulosin 0.4 mg capsule 0.4 mg PO DAILY 07/15/24 07/23/24 07/23/24 History atorvastatin 20 mg tablet 20 mg PO DAILY 07/16/24 07/23/24 07/23/24 History carvedilol 3.125 mg tablet 3.125 mg PO BID 07/16/24 07/23/24 07/23/24 History duloxetine 60 mg capsule,delayed 60 mg PO DAILY 07/16/24 07/23/24 07/23/24 History release felodipine 10 mg tablet,extended 10 mg PO DAILY 07/16/24 07/23/24 07/23/24 History release 24 hr fluticasone propionate 50 1 spray intranasal Q12H PRN nasal 07/16/24 07/23/24 07/23/24 History mcg/actuation nasal congestion spray,suspension lisinopril 40 mg tablet 40 mg PO DAILY 07/16/24 07/23/24 07/23/24 History potassium chloride 20 mEq 20 meq PO DAILY 07/16/24 07/23/24 07/23/24 History tablet,extended release (K-Tab) rivaroxaban 20 mg tablet 20 mg PO DAILY 07/16/24 07/23/24 07/22/24 History tizanidine 4 mg capsule 4 mg PO Q6H PRN muscle spasticity 07/16/24 07/23/24 Unknown History omeprazole 40 mg capsule,delayed 40 mg PO HS 07/22/24 07/23/24 07/22/24 History release Allergies Allergy/AdvReac Type Severity Reaction Status Date / Time citalopram Allergy Unknown Hives Verified 07/22/24 14:38 hydralazine Allergy Unknown Hives Verified 07/22/24 14:38 Penicillins Allergy Unknown hives Verified 07/22/24 14:38 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 Sepsis Gram-positive bacteremia Cholelithiasis SIRS (systemic inflammatory response syndrome) HONORIO (obstructive sleep apnea) Balanitis Gout Hyperlipidemia HTN (hypertension) Surgical History Surgical History H/O angioplasty Family History Family History Sibling Diabetes mellitus Family history of mental disorder, Onset Age: 63 Family history of cardiovascular disease, Onset Age: 63 Acute myocardial infarction Family history of malignant neoplasm Mother Family history of mental disorder, Onset Age: 56 Other Family history of seizure disorder Social History Social History Smoking packs per day: 2 Smoking cigarettes per day: 40.0 Years smoked: 15 Smoking pack-years: 30.00 Smoking status: Former smoker Alcohol intake: current Drinks per week: 56 Alcohol use details: DRINKING LESS CURRENTLY Substance use type: does not use Do You Feel Safe in your Home?: Yes Lack of Transportation: No Lack of Food: Never True Current Housing: I Have Housing Concerned About Future Housing: No Difficulty Paying Gas/Electric Bills: No Difficulty Paying for Meds: No Currently Unemployed: No Education: Associate Degree Difficulty w/ Childcare or Family Care: No Living arrangements: with family Additional living arrangements comments: Spiritual care concerns: No Exam 2 Narrative: GENERAL: W no acute distress, appears to not feel well. HEAD: Normocephalic, atraumatic. EYES: PERRLA and EOMI. ENT: Nares clear, no rhinorrhea or epistaxis. Mucous membranes moist. Oropharynx without tonsillar hypertrophy exudate or other lesions. NECK: Supple. No adenopathy or masses. No carotid bruits or JVD CHEST: Clear to auscultation. No respiratory distress. No wheezes rales or rhonchi HEART: Regular rate and rhythm. No murmur heard. Normal peripheral pulses. ABDOMEN: Soft, nontender, nondistended, normal active bowel sounds. EXTREMITIES: Normal range of motion. No edema. SKIN: Warm, dry, no rash. NEURO: No focal deficits. Alert and oriented x3. PSYCH: Normal mood and affect. Course Vital Signs Vital signs: Vital Signs Temperature 36.4 C 07/23/24 10:44 Pulse Rate 88 07/23/24 10:44 Respiratory Rate 12 07/23/24 10:44 Blood Pressure 108/79 07/23/24 10:44 Pulse Oximetry 97 07/23/24 10:44 Oxygen Delivery Room Air 07/23/24 10:44 Temperature 36.4 C 07/23/24 10:44 Pulse Rate 79 07/23/24 19:15 Respiratory Rate 22 H 07/23/24 19:15 Blood Pressure 88/45 L 07/23/24 19:15 Pulse Oximetry 100 07/23/24 19:15 Oxygen Delivery Room Air 07/23/24 19:15 Medical Decision Making MDM Narrative Medical decision making narrative: Three 3 year male who presents back to the hospital after being discharged 2 days ago with complaints of worsening symptoms feels very sick to his stomach and nauseated has not vomited. He states he is scheduled for cholecystectomy and 5 days with general surgery here however he feels like he is getting worse. On exam bowel sounds are hypoactive abdomen soft no pain with palpation Last bowel movement was 2 days ago Afebrile vital signs stable Concern for sepsis, dehydration, bowel obstruction, constipation Plan to check labs and treat his nausea which she was given 4 mg of Zofran EN route here and denies needing another dose at this time CBC-no leukocytosis, RBCs 3.55, hemoglobin 10.8, hematocrit 32.5 CMP-sodium 133, BUN 38, total bili 1.6 AST 64, ALT 95, alk-phos 210(which is an improvement) Lipase-69 CT abdomen pelvis- EKG- SInus with first degree AV block rate 82- Chest XR-no acute cardiopulmonary disease CT scan-1. Age-indeterminate epiploic appendagitis along the descending colon. No other acute intra-abdominal/pelvic process. 2. Cholelithiasis. 3. Diverticulosis. 4. Prostatomegaly. Consulted with general surgeon Dr. Haro regarding patient's case and scheduled cholecystectomy next week he recommends ordering a radiology placed perc to book for his gallbladder and to bring [place] for surgery consult to evaluate doing surgery sooner. Patient was accepted by hospitalist for general admission. Dr. Haro then called back and said the radiologist does not see acute cholecystitis on the CT scan that his gallbladder looks okay and numbers trending down new plan that to stop the antibiotics as maybe they could be causing his nausea and upset stomach and to admit him for observation overnight and possible discharge tomorrow. I called the hospitalist Janine back and she was updated with a new plan and she is agreeable for continuation of admission. Medical Records Medical records reviewed: Yes I reviewed the external patient's medical records. Vital Signs Vital Signs: Vital Signs Temperature 36.4 C 07/23/24 10:44 Pulse Rate 88 07/23/24 10:44 Respiratory Rate 12 07/23/24 10:44 Blood Pressure 108/79 07/23/24 10:44 Pulse Oximetry 97 07/23/24 10:44 Oxygen Delivery Room Air 07/23/24 10:44 Temperature 36.4 C 07/23/24 10:44 Pulse Rate 79 07/23/24 19:15 Respiratory Rate 22 H 07/23/24 19:15 Blood Pressure 88/45 L 07/23/24 19:15 Pulse Oximetry 100 07/23/24 19:15 Oxygen Delivery Room Air 07/23/24 19:15 vitals reviewed by me Lab Data Lab results reviewed: Yes I reviewed the patient's lab results. 07/23/24 18:45 07/23/24 18:45 Labs: Lab Results 07/23/24 Range/Units 10:53 WBC 7.2 (4.5-10.0) K/mm3 RBC 3.55 L (4.6-6.20) M/mm3 Hgb 10.8 L (14.0-18.0) g/dL Hct 32.5 L (42.0-52.0) % MCV 91.5 (80-100) fl MCH 30.4 (26-34) pg MCHC 33.2 (32-36) g/dl RDW 15.3 H (11.5-14.5) % Plt Count 266 (150-375) k/mm3 MPV 10.4 (7.4-10.4) fl Immature Gran % (Auto) 6.1 H (0-0.5) % Neut % (Auto) 53.4 (45.5-73.1) % Lymph % (Auto) 27.8 (18.3-44.2) % Union % (Auto) 9.9 H (2.6-8.5) % Eos % (Auto) 2.2 (0-4.4) % Baso % (Auto) 0.6 (0.2-1.2) % Lymph # (Auto) 2.01 (0.9-3.2) K/mm3 Union # (Auto) 0.7 H (0.1-0.6) K/mm3 Eos # (Auto) 0.2 (0-0.3) K/mm3 Baso # (Auto) 0.0 (0.0-0.1) K/mm3 Abs Immat Gran (auto) 0.44 H (0.00-0.031) K/mm3 Absolute Neuts (auto) 3.9 (1.3-6.7) K/mm3 Absolute Nucleated RBC 0.000 (0.0-0.012) K/mm3 Nucleated RBC % 0.0 (0.0-0.2) % Sodium 133 L (137-145) mmol/L Potassium 4.0 (3.4-5.0) mmol/L Chloride 100 (98-107) mmol/L Carbon Dioxide 26 (22-30) mmol/L Anion Gap 7 (4-12) mmol/L BUN 38 H D (9-20) mg/dL Creatinine 1.12 (0.7-1.3) mg/dL Estim Creat Clear Calc 75 ml/min Estimated GFR > 60 (59 - ) Glucose 164 H (65-110) mg/dL Calcium 8.9 (8.4-10.2) mg/dL Total Bilirubin 1.6 H (0.2-1.3) mg/dL AST 64 H (17-59) U/L ALT 95 H (6-50) U/L Alkaline Phosphatase 210 H (38-126) U/L Total Protein 6.0 L (6.3-8.2) g/dL Albumin 3.5 (3.5-5.1) g/dL Lipase 69 (23-300) U/L Imaging Data Radiologist's impression: Impressions Chest X-Ray 07/23/24 11:33 IMPRESSION: 1. No acute cardiopulmonary disease. Abdomen/Pelvis CT 07/23/24 12:44 IMPRESSION: 1. Age-indeterminate epiploic appendagitis along the descending colon. No other acute intra-abdominal/pelvic process. 2. Cholelithiasis. 3. Diverticulosis. 4. Prostatomegaly. ECG Data EKG #1: ECG completion date: 07/23/24 ECG completion time: 10:51 Prior ECG tracings: available for review Interpretation: Rate 82 FL 220 QRSd 117 QT 377 QTc 442 --[place]-- P 35 QRS -50 T 61 SINUS RHYTHM WITH FIRST DEGREE AV BLOCK LEFT ANTERIOR FASCICULAR BLOCK [QRS AXIS <= -45, QR IN I, RS IN II] Compared to ECG 07/16/2024 01:03:57 NO SIGNIFICANT CHANGES Discharge Plan Discharge Clinical Impression: Nausea Cholelithiasis Qualifiers: Cholelithiasis location: gallbladder Cholecystitis acuity: unspecified acuity B iliary obstruction: without biliary obstruction Patient Disposition: Still a Patient Condition: Stable
[2024-07-23 12:16] LABS: Lipase 69 U/L (23-300)
[2024-07-23] MEDS: FAMOTIDINE 20 MG/2 ML VIAL IV PUSH (12:42)
--- NOTE | 2024-07-23 15:05 | P.HP_ITS ---
H&P: HPI History of Present Illness Date/Time: 07/23/24 15:05 Chief Complaint: Nausea and vomiting Narrative: 73-year-old male past medical history of liver disease currently still drinking, hypertension, hyperlipidemia gout presents the hospital with nausea vomiting. Patient was admitted here on 07/17/2024 and found to have choledocholithiasis and had ERCP by GI with plans to return on 07/28/2024 for outpatient cholecystectomy patient was sent home on oral antibiotics 4 days ago. Since patient left the hospital he has had nausea and vomiting unable to keep anything down. Lab work in the ED shows anemia 10.8, sodium of 133, BUN of 38, a creatinine of 1.19 with baseline being 0.9, total bilirubin of 1.6, AST of 64 ALT of 95, alkaline phos of 210. CT shows cholelithiasis and epiploic appendagitis. Shortly after arrival to the floor rapid response was called. Patient was trying have a bowel movement when he became unresponsive. Staff was able to get him safely back in bed. He was severely hypotensive 63/47, diaphoretic, with complaints of headache and jaw pain. Due to patient's dropping hemoglobin, YOLETTE and sepsis he was transferred to the ICU. Review of Systems Review of Systems: 12 systems were reviewed and are negativ e except for as per HPI. 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 Sepsis Gram-positive bacteremia Cholelithiasis SIRS (systemic inflammatory response syndrome) HONORIO (obstructive sleep apnea) Balanitis Gout Hyperlipidemia HTN (hypertension) Surgical History Surgical History H/O angioplasty Family History Family History Sibling Diabetes mellitus Family history of mental disorder, Onset Age: 63 Family history of cardiovascular disease, Onset Age: 63 Acute myocardial infarction Family history of malignant neoplasm Mother Family history of mental disorder, Onset Age: 56 Other Family history of seizure disorder Social History Social History Smoking packs per day: 2 Smoking cigarettes per day: 40.0 Years smoked: 15 Smoking pack-years: 30.00 Smoking status: Former smoker Alcohol intake: current Drinks per week: 56 Alcohol use details: DRINKING LESS CURRENTLY Substance use type: does not use Do You Feel Safe in your Home?: Yes Lack of Transportation: No Lack of Food: Never True Current Housing: I Have Housing Concerned About Future Housing: No Difficulty Paying Gas/Electric Bills: No Difficulty Paying for Meds: No Currently Unemployed: No Education: Associate Degree Difficulty w/ Childcare or Family Care: No Living arrangements: with family Additional living arrangements comments: Spiritual care concerns: No Meds Home Medications and Allergies Home Medications ?Medication ?Instructions ?Recorded ?Confirmed ?Type amlodipine 5 mg tablet 5 mg PO DAILY 10/27/19 07/23/24 History bupropion HCl 300 mg 24 hr tablet, 300 mg PO QAM 10/27/19 07/23/24 History extended release clonazepam 1 mg tablet 1 mg PO DAILY PRN anxiety 10/27/19 07/23/24 History buspirone 15 mg tablet 15 mg PO BID 07/15/24 07/23/24 History evolocumab 140 mg/mL subcutaneous 140 mg subcut .every other week 07/15/24 07/23/24 History pen injector (Repsmith Springer) furosemide 20 mg tablet 20 mg PO DAILY 07/15/24 07/23/24 History pregabalin 200 mg capsule 200 mg PO Q12H 07/15/24 07/23/24 History semaglutide 0.25 mg or 0.5 mg (2 0.25 mg subcut WEEKLY 07/15/24 07/23/24 History mg/3 mL) subcutaneous pen injector (Ozempic) sildenafil (pulm.hypertension) 20 20 mg PO PRN PRN sexual activity 07/15/24 07/23/24 History mg tablet tadalafil 5 mg tablet 5 mg PO PRN PRN sexual activity 07/15/24 07/23/24 History tamsulosin 0.4 mg capsule 0.4 mg PO DAILY 07/15/24 07/23/24 History atorvastatin 20 mg tablet 20 mg PO DAILY 07/16/24 07/23/24 History carvedilol 3.125 mg tablet 3.125 mg PO BID 07/16/24 07/23/24 History duloxetine 60 mg capsule,delayed 60 mg PO DAILY 07/16/24 07/23/24 History release felodipine 10 mg tablet,extended 10 mg PO DAILY 07/16/24 07/23/24 History release 24 hr fluticasone propionate 50 1 spray intranasal Q12H PRN nasal 07/16/24 07/23/24 History mcg/actuation nasal congestion spray,suspension lisinopril 40 mg tablet 40 mg PO DAILY 07/16/24 07/23/24 History potassium chloride 20 mEq 20 meq PO DAILY 07/16/24 07/23/24 History tablet,extended release (K-Tab) rivaroxaban 20 mg tablet 20 mg PO DAILY 07/16/24 07/23/24 History tizanidine 4 mg capsule 4 mg PO Q6H PRN muscle spasticity 07/16/24 07/23/24 History levofloxacin 750 mg tablet 750 mg PO DAILY #5 tabs 07/21/24 07/23/24 Rx metronidazole 500 mg tablet 500 mg PO Q8HR 6 days #18 tabs 07/21/24 07/23/24 Rx omeprazole 40 mg capsule,delayed 40 mg PO HS 07/22/24 07/23/24 History release Allergies Allergy/AdvReac Type Severity Reaction Status Date / Time citalopram Allergy Unknown Hives Verified 07/22/24 14:38 hydralazine Allergy Unknown Hives Verified 07/22/24 14:38 Penicillins Allergy Unknown hives Verified 07/22/24 14:38 Vital Signs Vital Signs - 24 hr 07/23/24 10:44 Temperature 97.6 F Pulse Rate 88 Respiratory Rate 12 Blood Pressure 108/79 Pulse Oximetry 97 Oxygen Delivery Room Air Exam Narrative: General: Ill-appearing, diaphoretic HEENT: normocephalic, atraumatic. Mucous membranes moist. EOMI, PERRLA, bilateral sclera anicteric, no conjunctival injection. Neck supple without JVD, lymphadenopathy, or bruit. Respiratory: clear to ascultation bilaterally. No rales/rhonic/wheezes. Cardiovascular: Regular rate and rhythm, normal S1-S2 upon ascultation. No murmurs, rubs, or clicks. PMI is nondisplaced, capillary refill less than 3 second. Abdomen: Soft, round, no pulsatile masses, nondistended and nontender. No rebound, no guarding. No CVA tenderness, no hepatosplenomegaly. Bowel sounds present to all four quadrants. No high pitch or tinkling sounds, resonant to percussion. Extremities: No cyanosis, clubbing, or edema present. Pulses are palpable 2/2. Active ROM to all four extremities. Neuro: Alert and orientated x 4. PERRLA. Cranial nerves 2-12 intact without focal deficit. Skin: Warm, dry, and intact, without rash, erythema, or lesion. Psych: pleasant, cooperative, normal speech, normal affect, no hallucinations, no dysarthia H&P: Results Labs Labs: Short CBC 07/23/24 Range/Units 10:53 WBC 7.2 (4.5-10.0) K/mm3 Hgb 10.8 L (14.0-18.0) g/dL Hct 32.5 L (42.0-52.0) % Plt Count 266 (150-375) k/mm3 BMP 07/23/24 10:53 Sodium 133 L Potassium 4.0 Chloride 100 Carbon Dioxide 26 BUN 38 H D Creatinine 1.12 Glucose 164 H Calcium 8.9 Liver Function 07/23/24 Range/Units 10:53 Total Bilirubin 1.6 H (0.2-1.3) mg/dL AST 64 H (17-59) U/L ALT 95 H (6-50) U/L Alkaline Phosphatase 210 H (38-126) U/L Albumin 3.5 (3.5-5.1) g/dL Assessment and Plan Assessment and plan (1) Acute blood loss anemia: Code(s): D62 - Acute posthemorrhagic anemia Status: Acute Assessment and Plan: Patient dropped almost 2 points on his hemoglobin in 12 hours CTA chest abdomen pelvis shows no active bleeding Patient states that last week while he was in the hospital he had black tarry stools and did not inform nursing, he states that whenever he went home he continued his Xarelto Patient likely has a GI bleed will consult GI Q.6 hours H and H Transfuse for hemoglobin less than 7 or symptomatic Hold Xarelto (2) Sepsis: Code(s): A41.9 - Sepsis, unspecified organism Status: Acute Assessment and Plan: Lactic acid 2.3 with repeat being 1.2 after fluid bolus IV cefepime and Flagyl Blood cultures pending UA pending (3) Acute kidney injury: Code(s): N17.9 - Acute kidney failure, unspecified Status: Acute Assessment and Plan: Likely due to sepsis and severe dehydration IV fluids for hydration Repeat BMP in morning (4) Hypotension: Code(s): I95.9 - Hypotension, unspecified Status: Acute Assessment and Plan: Likely due to GI bleed and sepsis Transfer to ICU Transfuse 2 units for symptomatic hypotension with drop in hemoglobin Q.6 hours H&H Hold home blood pressure medications (5) Nausea and vomiting: Code(s): R11.2 - Nausea with vomiting, unspecified Status: Acute Assessment and Plan: Originally thought due to IV antibiotics however patient now appears to be sept ic IVF tigan (6) Cholelithiasis: Code(s): K80.20 - Calculus of gallbladder without cholecystitis without obstruction Status: Acute Assessment and Plan: Surgery consulted For surgery no need for antibiotics at this time or per coli tube (7) Alcohol abuse: Code(s): F10.10 - Alcohol abuse, uncomplicated Status: Acute Assessment and Plan: Monitor for withdrawal Currently no signs of withdrawal (8) Hyponatremia: Code(s): E87.1 - Hypo-osmolality and hyponatremia Status: Acute Assessment and Plan: Likely due to alcohol use and vomiting IV fluids for hydration BMP the morning (9) Hyperlipidemia: Code(s): E78.5 - Hyperlipidemia, unspecified Status: Acute Assessment and Plan: Continue home Lipitor (10) Liver disease due to alcohol: Code(s): K70.9 - Alcoholic liver disease, unspecified Status: Acute Assessment and Plan: LFTs at baseline Daily CMP (11) CHF (congestive heart failure): Code(s): I50.9 - Heart failure, unspecified Status: Acute Assessment and Plan: Hold home Lasix sepsis and dehydration Monitor for fluid overload (12) HTN (hypertension): Code(s): I10 - Essential (primary) hypertension Status: Acute Assessment and Plan: Hold antihypertensives as blood pressure is soft (13) Depression: Code(s): F32.A - Depression, unspecified Status: Acute Assessment and Plan: Continue Cymbalta, buspirone and Wellbutrin (14) Jaw pain: Code(s): R68.84 - Jaw pain Status: Acute Assessment and Plan: Troponin negative EKG shows sinus rhythm with first-degree AV block which was seen on previous EKGs Quality VTE Prophylaxis VTE prophylaxis: mechanical ordered If No VTE Prophylaxis Answer both mechanical and pharmacologic: Reason no pharmacologic proph: medical contraindication active bleeding/bleeding risk
--- OUTSIDE RECORDS SUMMARY | 2024-07-23 15:35 | XMS_ITS | Clinical Summary ---
Author Organization [facility] Address [address] [place] [address] Care Team Providers Care Tooth Cutter Spur Name Role Phone Mirian Wallace MD Primary Care Provider [phone] Allergies Active Allergy Reactions Criticality Noted Date [...] 024 Active fluticasone propionate (FLONASE) 50 mcg/spray [place], Suspension nasal inhaler Administer 1 [place] in each nostril 2 times daily. 16 Gram 5 024 Active felodipine (PLENDIL) 10 mg Extended Release 24 hour tabletIndication s:Paroxysmal atrial fibrillation (CMS/HCC),Benign hypertension,Cor onary artery disease involving [place] coronary artery of [place] heart without angina pectoris TAKE 1 TABLET(10 [...] atrial fibrillation (CMS/HCC),Candelario ry artery disease involving [place] coronary artery of [place] heart without angina pectoris Take 1 Tablet (20 mg) by mouth daily with supper. 90 Tablet 3 025 Active atorvastatin (LIPITOR) 20 mg tabletIndication s:Mixed hyperlipidemia TAKE 1 TABLET(20 MG) BY MOUTH DAILY 90 Tablet 1 025 Active lisinopriL (PRINIVIL) 40 mg tabletIndication s:Benign hypertension,Cor onary artery disease involving [place] coronary artery of [place] heart without angina pectoris TAKE 1 TABLET(40 [...] migh t be different from the original. Dermatologist Dr[facility] Last AWV 11/09/15 RH Problem Noted Date [...] 05/10/2020 Assessment & Plan (05/10/2020 12:23 PM BEAM WORKER): Worsening. He underwent a recent MRI - There is significant foramen stenosis. He has been having injections with some relief. Enteritis 02/21/2020 Moderate alcohol use disorder 01/07/2018 PAD (peripheral artery disease) 06/12/2017 Assessment & Plan (05/10/2020 12:19 PM BEAM WORKER): Stable. He status post procedures, peripheral stents in both legs. Continue secondary prevention. . Coronary artery disease invo lving [place] coronary artery of [place] heart without angina pectoris 02/16/2015 Gout 11/01/2014 [...] 03/24/2024 Diarrhea 03/21/2024 03/24/2024 Forgetfulness 09/19/2023 01/14/2024 meterman prescription benzodiazepine use 06/11/2019 04/19/2020 Obesity (BMI 35.0-39.9 without comorbidity) 04/30/2018 12/24/2022 Elevated liver enzymes 01/07/201802/06 Atherosclerosis with claudic ation of extremity 12/26/2016 10/29/2018 Type 2 diabetes mellitus wit h vascular disease 12/04/2016 12/24/2022 Assessment & Plan (05/10/2020 12:12 PM BEAM WORKER): He is here today to follow up for diabetes mellitus. We discussed and reviewed the following issues Glucose control He has been following his home glucoses and weight. His last A1C is: Lab Results Component Value Date/Time HGBA1C 7.2 (H) 12/18/2016 04:36 AM [id number] 5.4 09/24/2019 12:46 PM Wt Readings from [...] blockage of another artery (Dr. Mcmahon) at [facility]. Type 2 diabetes mellitus without complication 12/19/19 12 02/06/2018 Bruising 02/06/2018 Encounters Date Type Department Care Team Description 07/20/2024 Abstract [facility] Primary Care - [address] [address] Mirian Wallace MD 07/14/2024 11:30 AM CDT Video Visit [facility] Psychiatry [place] [address] [place] [phone] Rashawn Olvera DO Recurrent major depressive disorder, in full remission; Generalized anxiety disorder 07/14/[address] [facility] Care - [facility] [id number] [place] [address] [address] [place] [phone] Mirian Wallace MD 07/13/2024 External Device Data STL ABSTRACTION Provider, Abstract 07/13/2024 External Device Data STL ABSTRACTION Provider, Abstract 07/13/2024 Abstract [facility] Gastroenterology [facility] [address] [facility] [address] [place] [phone] Al Cooper MD 07/13/2024 Refill [facility] HEART AND VASCULAR - [place] [id number] [place] [address] [address] [place] [phone] Flo Donahue MD Benign hypertension 07/10/2024 Refill [facility] Psychiatry [facility] and [address] [place] [phone] Rashawn Olvera DO Recurrent major depressive disorder, in full remission 07/08/2024 Telephone [facility] GASTROENTEROLOGY - [address] [facility] [address] [facility] [address] [place] [phone] Nhan Ortiz DO PA for Rezdiffra 07/06/2024 1:10 PM CDT Office Visit [facility] GASTRO[facility]OLOGY - [address] [facility] [address] [phone] Nhan Ortiz DO Elevated LFTs (Primary Dx); Obesity (BMI 35.0-39.9 without comorbidity); Moderate alcohol use disorder (CMS/HCC); Metabolic dysfunction-associa farshad steatotic liver disease (MASLD) 06/25/2024 Refill [facility] Primary Care - [facility] [id number] [place] [address] [address] [place] [phone] Mirian Wallace MD 06/23/2024 2:30 PM CDT Office Visit [facility] HEART AND VASCULAR EP AT [facility] [address] [facility] [address] [place] [address] Bill De Anda MD Other persistent atrial fibrillation (CMS/HCC) (Primary Dx); Typical atrial flutter (CMS/HCC); Benign hypertension 06/08/2024 External Device Data STL ABSTRACTION Provider, Abstract 06/07/2024 Refill [facility] HEART AND VASCULAR - [address] [phone] Flo Donahue MD Mixed hyperlipidemia; Benign hypertension; Coronary artery disease involving [place] coronary artery of [place] heart without angina pectoris 05/28/[address] [phone] Mirian Wallace MD 05/18/[address] [phone] Mirian Wallace MD 05/14/2024 10:30 AM BEAM WORKER Office Visit [facility] Primary Care Same Day [address] [phone] Valerie Tapia FNP Liver fibrosis (Primary Dx); Generalized body aches; Other fatigue; Abnormal urine color 05/11/2024 External Device Data STL ABSTRACTION Provider, Abstract 05/11/2024 External Device Data STL ABSTRACTION Provider, Abstract 05/05/2024 Orders Only [address] [address] Mirian Wallace MD 05/05/[address] [address] Mirian Wallace MD 04/28/2024 Chart Note [facility] HEART [address] [phone] Flo Donahue MD from Last 3 Months Immunizations Immunization Administration Dates Next Due (ADACEL/BOOSTRIX)(10 YR UP) TDAP VACCINE, 0.5ML, IM 11/08/2017 (AREXVY)(60 YR UP) RSV, GURJIT MBINANT, PROTEIN SUBUNIT RSVPREF, ADJUVANT RECONSTITUTED, 0.5 ML, PF 01/24/2023 (PFIZER)(12 YR UP) COVID-19 VACCINE - EMERGENCY USE AUTHORIZATION, MRNA, [id number](PF) 30 MCG/0.3 ML IM SUSP 12/07/2020 (PREVNAR [...] on file Legal Sex Male 4:59 AM BEAM WORKER Gender Identity Not on file Sexual Orientation Not on file Last Filed Vital Signs Vital Sign Reading Time Taken Comments Blood Pressure 155/79 07/06/2024 12:32 PM CDT Pulse 72 07/06/2024 12:32 PM CDT Temperature 36.3 C (97.4 F) 07/06/2024 12:32 PM CDT Respiratory Rate 18 05/14/2024 10:09 AM BEAM WORKER Oxygen Saturation 90% 07/06/2024 12:32 PM CDT [...] [facility] EP AT [facility] [address] [facility] [address] [place] [address] Bill De Anda MD [address] [facility] [address] [place] [address] 08/18/2024 11:30 AM CDT Office Visit [facility] Primary Care [facility] [address] [address] [place] [address] [address] 09/15/2024 11:30 AM CDT Office Visit [facility] HEART AND VASCULAR - [place] [address] [facility] [address] [place] [address] Flo Donahue MD [address] [facility] [address] [place] [address] 09/21/2024 11:00 AM CDT Office Visit [facility] Neurology [address] [facility] [address] [place] [address] Ashley Holloway, [facility] [address] [facility] [address] [place] [address] 10/05/2024 1:15 PM CDT Office Visit [facility] GASTRO[facility]OLOGY - [address] [facility] 102 [address] [facility] [address] [place] [address] Konrad Aburto, [facility] [address] [place] [address] 11/26/2024 1:00 PM CDT Office Visit [facility] Pulmonology [facility] [address] [place] [address] MarceConradoPrashant Silvio Levin, PROGRAM CLERK [address] [place] [phone] 12/27/2024 1:30 PM CDT Office Visit [facility] HEART AND VASCULAR EP AT [facility] [address] [place] [address] Guerrero Lind MD [address] [facility] [address] [place] [address] 09/22/2025 11:00 AM CDT Office Visit [facility] Neurology [address] [place] [address] Carmine Castano MD [address] [facility] [address] [place] [address] Health Maintenance Due Date Last [...] season) 2023 12/07/2020, 05/30/2020, 04/19/2020 [place] Preventative Visit/Annual Wellness Visit 03/10/2024 08/15/2023, 01/15/2022, [...] history exists Medical Devices Implanted Type Area Back Gray Cloth Washer Device Identifier Shelf Expiration Date Model / Serial / Lot Vitoss Foam Pack Ba2x 5ml 7599-8799 - [id number] Implanted:Qty : 1 on 04/12/2022 by Aman Justice MD at [facility] Biological N/A: Spine Cervical Anterior NEELAM- SPINE [id number] 04/06/2023 [id number] / / [id number] Tritanium C Anterior Cervical Cage 5 Mm X 12mm X 14mm X 6 Implanted:Qty : 1 on 04/12/2022 by Aman Justice MD at [facility] Cage N/A: Spine Cervical Anterior [employer] [id number] 01/22/2027 [id number] / / [id number] Description:ID : [id number] 21P. All [place] cervical hardware was processed on requisition, [id number]. Tritanium Anterior Cervical Cage Implanted:Qty : 1 on 04/12/2022 by Aman Justice MD at [facility] Cage N/A: Spine Cervical Anterior NEELAM- SPINE 02/17/2023 [id number] / / [id number] Cement Bone Biomet R 1x40 [id number] - [id number] Implanted:Qty : 2 on 10/01/2021 by Ke Bhatt MD at [facility] Right: Knee [employer]SON [employer] 12/08/2023 [id number] / / [id number] Dev Cardiva Vascade Mvp Xl Vvcs 10-12fr 800-1012xl - [id number] Implanted:Qty : 1 on 03/08/2024 by Bill De Anda MD at [facility] Closure Device Right: Groin [employer] [id number] 12/03/2025 800-1012XL / / [id number] Dev Vns Vasc Clsr Vascade Mvp 826-529s-10y - [id number] Implanted:Qty : 1 on 03/08/2024 by Bill De Anda MD at [facility] Closure Device Left: Groin [employer] [id number] 07/20/2025 800-612C-1 0U / / [id number] Dev Vns Vasc Clsr Vascade Mvp 458-586v-06d - [id number] Implanted:Qty : 1 on 03/08/2024 by Bill De Anda MD at [facility] Closure Device Left: Groin [employer] [id number] 07/20/2025 800-612C-1 0U / / [id number] 2C0O Hemostatic Surgifoam Sz100 1973 - [id number] Implanted:Qty : 1 on 06/23/2020 by Aman Justice MD at [facility] Hemostatic Right: Spine Lumbar J&J- [employer] 02/03/20241973 [id number] Hemostatic Surgifoam Sz100 1973 - [id number] Implanted:Qty : 1 on 04/12/2022 by Aman Justice MD at [facility] Hemostatic N/A: Spine Cervical Anterior J&J- [employer] [id number] 12/03/20251973 / [id number] Bearing Vanguard Ant Stab 10x75 021680 - [id number] Implanted:Qty : 1 on 10/01/2021 by Ke Bhatt MD at [facility] Knee Right: Knee [employer] [id number] 06/28/2023 [id number] / / [id number] Description:FRANDY BOR[place]GO Comp Fem Vanguard Cr Interlock Rt 75mm [id number] - [id number] Implanted:Qty : 1 on 10/01/2021 by Ke Bhatt MD at [facility] Knee Right: Knee [employer] [id number] 01/02/2031 [id number] / / [id number] Description:FRANDY BORREGO Patella 3peg Series A 195009 - [id number] Implanted:Qty : 1 on 10/01/2021 by Ke Bhatt MD at [facility] Knee Right: Knee [employer] 04/05/2026 [id number] / / [id number] Description:FRANDY BORREGO Comp Tib Cocr Finned 75mm [id number] - [id number] Implanted:Qty : 1 on 10/01/2021 by Ke Bhatt MD at [facility] Knee Right: Knee [employer]SON [employer] 07/28/2031 [id number] / / [id number] Description:FRANDY BORREGO 40mm 2 Level Plate Implanted:Qty : 1 on 04/12/2022 by Aman Justice MD at [facility] Plate N/A: Spine Cervical Anterior NEELAM- SPINE [id number] / STERILIZED APR 12 / LOAD # 8 1 12mmx4.0 Self Tapping Variable Screws Implanted:Qty : 6 on 04/12/2022 by Aman Justice MD at [facility] Screw N/A: Spine Cervical Anterior NEELAM- SPINE [id number] CA / STERILIZED APR 12 / LOAD #1 8 Stent Vasc Supera 6fr P-[id number]- P6-12/17/2016 Implanted:12/2016 by Flo Donahue MD (Quantity not on file) Stent [facility] [id number] 01/07/2017 S-65-100-1 20-P6 / / [id number] Description:Prox politeal / right SFA Stent Vasc Supera 6fr C-34-080-120- P6-12/17/2016 Implanted:12/2016 by Flo Donahue MD (Quantity not on file) [facility]ent [facility] [id number] 11/07/2017 S-65-100-1 20-P6 / / [id number] Description:right SFA Right Big Toe Titanium Procedures Procedure Name Priority Date/Time Associated Diagnosis Comments NE ECG ROUTINE ECG W/LEAST 12 LDS W/I&R Routine 06/23/2024 3:15 PM CDT Other persistent atrial fibrillation (CMS/HCC) POC URINALYSIS DIPSTICK AUTOMATED Routine 05/14/2024 10:42 AM BEAM WORKER Abnormal urine color DIABETES EYE EXAM Routine 04/29/2024 9:00 AM BEAM WORKER COLONOSCOPY REPORT 03/31/2024 11 :[address] ABDOMEN PELVIS WO CONTRAST Stat 12/11/2022 11:48 AM CDT Chronic diarrhea Loose bowel movement from Last 3 Months or Most Recently Relevant to Health Maintenance Results * NE ECG ROUTINE ECG W/LEAST 12 LDS W/I&R (06/23/2024 3:15 PM CDT) Narrative [facility] HEART AND VASCULAR - 06/23/2024 3:15 PM CDT Bill De Anda MD 06/23/2024 3:16 PM Sinus rhythm with first-degree AV block at 68 bpm. NE duration 265 ms. Procedure Note Bill De Anda MD - 06/23/2024 3:15 PM CDT Sinus rhythm with first-degree AV block at 68 bpm. NE duration 265 ms. us Bill De Anda MD ECG ORDERABLES Final Result [facility] HEART AND VASCULAR CLIA #[id number] [address] [facility], [facility] [address] [place], [place] [phone] * POC URINALYSIS DIPSTICK AUTOMATED (05/14/2024 10:42 AM BEAM WORKER) COLOR UA POC Yellow Pale to Dark Yellow [facility] CLARITY UA POC Clear Clear, Other [facility] GLUCOSE UA POC Negative Negative, Normal [facility] BILIRUBIN UA POC Negative Negative [facility] KETONES UA POC Negative Negative [facility] SPECIFIC GRAVITY UA POC 1.015 1.000 - 1.030 [facility] BLOOD UA POC Negative Negative [facility] PH UA POC 7.0 5.0 - 8.0 [facility] PROTEIN UA POC Negative Negative [facility] UROBILINOGEN UA POC 0.2 <2.0 mg/dL [facility] NITRITE UA POC Negative Negative [facility] LEUKOCYTE ESTERASE UA POC Negative Negative [facility] KIT LOT NUMBER POC 402,017 [facility] KIT EXP DATE POC 10/07/2024 [facility] Urine 05/14/2024 10:4 2 AM BEAM WORKER us Valerie Tapia PROGRAM CLERK POINT OF CARE TESTING Final Re sult Performing Organization Address [facility] Co de Phone Number [facility] CLIA# [id number] [facility] [place] [address] * HM DIABETES EYE EXAM (04/29/2024 9:00 AM BEAM WORKER) us Mirian Wallace MD HEALTH MAINTENANCE Final Result Performing Organization Address [facility]/ZIP Co de Phone Number [facility] CLIA# [id number] [facility] [address] [place] [address] * COLONOSCOPY REPORT (03/31/2024 11:33 AM BEAM WORKER) Narrative Procedure Note Nhan Ortiz DO - 03/31/2024 11:33 AM CST [facility] Endoscopy Patient Name: Romario Bonds Procedure [...] pathology results. Procedure Code(s): --- Professional --- 79861, Colonoscopy, flexible; with removal of tumor(s), polyp(s), or other lesion(s) by snare technique 36081, 59, Colonoscopy, flexible; with biopsy, single or multiple CPT copyright 2020 [employer]. All rights reserved. The codes documented in this report are preliminary and upon manager of software review may be revised to meet current compliance requirements. Nhan Ortiz DO 03/31/2024 11:30:42 AM This report has been signed electronically. Number of Addenda: [id number], [place] [address] Nhan Ortiz DO GI PROCEDURE ORDERABLES Final Re sult * CT ABDOMEN PELVIS WO CONTRAST (12/11/2022 11:48 AM CDT) Anatomical Region Laterality Modality Abdomen Computed Tomogra phy 12/11/2022 11:5 0 AM CDT Impressions 12/11/2022 12:02 PM CDT IMPRESSION: 1. Epiploic appendagitis of the left colon. 2. Prostatic enlargement with prominent urinary bladder distention. 3. Cholelithiasis. DICTATION LOCATION: Location [address] [place] [address] 12/11/2022 12:02 PM CDT EXAMINATION: CT ABDOMEN [...] Type:RX Medicare Part D Address: [place] [facility] [address] Advance Directives For more information, please contact: [phone] Documents on File Type Date Recorded Patient Tavern Car Attendant Expl anation Advance Directive POA 12/19/2016 2:35 [...] 11:01 AM 10/01/2021 5:07 PM Care Teams Tooth Cutter Spur Relationship Specialty [place] [address] [address] PCP - General 05/07/12
--- OUTSIDE RECORDS SUMMARY | 2024-07-23 15:35 | XMS_ITS | Encounter Summary ---
Author Organization [facility] Address [address] [place] [address] Care Team Providers Care Engagement Quality Consultant Name Role Phone Mirian Wallace MD Primary Care Provider [phone] Encounter Details Date Type Department Care Team [...] on file Legal Sex Male 4:59 AM HEAT SET OPERATOR Gender Identity Not on file Sexual Orientation Not on file documented as of this encounter Plan of Treatment Upcoming Encounters Date Type Department Care Team (Late st Contact Info) Description 08/11/2024 3:15 PM CDT Office Visit [facility] HEART AND VASCULAR EP AT [address] [place] [address] [address] MD [facility] S [facility] 2014 [place] [address] 08/18/2024 11:30 AM CDT Office Visit [facility] Primary Care - [facility] [address] [place] [address] [place] [address] [phone] 09/15/2024 11:30 AM CDT Office Visit [facility] HEART AND VASCULAR - [place] [id number] [address] [facility] [address] [place] [address] Flo Donahue MD [address] [facility] [address] [place] [address] 09/21/2024 11:00 AM CDT Office Visit [facility] Neurology [facility] [address] [facility] [address] [place] [address] Ashley Holloway, [facility] [address] [facility] [address] [place] [address] 10/05/2024 1:15 PM CDT Office Visit [facility] GASTROENTEROLOGY - [address] [facility] [address] [phone] Konrad Aburto, [facility] [address] [facility] 102 [place] [address] 11/26/2024 1:00 PM CDT Office Visit [facility] Pulmonology [facility] [address] [facility] [address] [place] [address] Silvio Avalos, [facility] [address] [facility] [place] [address] 12/27/2024 1:30 PM CDT Office Visit [facility] HEART AND VASCULAR EP AT [facility] [address] [facility] [address] [place] [address] Guerrero Lind MD [address] [facility] [address] [place] [address] 09/22/2025 11:00 AM CDT Office Visit [facility] Neurology [address] [place] [address] Carmine Castano MD [address] [facility] [address] [place] [address] documented as of this encounter Visit Diagnoses Diagnosis Urticaria, unspecified- Primary documented in this encounter Additional Health Concerns Infection Onset Date Last Indicated Resolved Time C Diff Comment:10/26/15 08/08/2017-outside 60 days from last positive culture obtianed.resolved. 10/27/2015 10/27/2015 06/0 03/2017 3:50 PM CDT R/O COVID-19 12/10/2019 12/10/2019 12/13/2019 1:16 AM CDT COVID-19 12/11/2019 12/11/2019 01/10/2020 1:16 AM HEAT SET OPERATOR R/O C. diff 08/04/2021 08/03/2021 08/04/2021 2:45 PM CDT R/O Respiratory 05/13/2022 05/13/2022 05/14/2022 1 2:32 AM HEAT SET OPERATOR R/O GI Pathogen 05/13/2022 05/13/2022 05/14/2022 1 2:32 AM HEAT SET OPERATOR R/O C. diff 12/09/2022 12/09/2022 12/10/2022 1:06 PM CDT R/O C. diff 01/23/2024 01/22/2024 01/23/2024 5:28 PM HEAT SET OPERATOR documented as of this encounter Care Teams Engagement Quality Consultant Relationship Specialty [place] [address] [facility] [address] [place] [address] PCP - General 05/07/12 documented as of this encounter
--- OUTSIDE RECORDS SUMMARY | 2024-07-23 15:35 | XMS_ITS | Clinical Summary ---
Author Organization [facility] Address [address] [place] [address] Care Team Providers Care Lock And Dam Equipment Repairer Name Role Phone Unavailable Primary Care Provider [...]
--- OUTSIDE RECORDS SUMMARY | 2024-07-23 15:35 | XMS_ITS | Encounter Summary ---
Author Organization [facility] Address [address] [place] [address] Care Team Providers Care Freezing Room Worker Name Role Phone Mirian Wallace MD Primary Care Provider [phone] Encounter Details Date Type Department Care Team (Latest Contact Info) Description 03/30/2024 Results Follow-Up [facility] GASTRO[facility]OLOGY - [address] [facility] [address] [address] [facility] 102 [place] [address] Nhan Ortiz, [address] [facility] [address] [place] [address] [place] ABDOMEN LIMITED, HEPATITIS B [...] on file Legal Sex Male 4:59 AM PLYWOOD STOCK GRADER Gender Identity Not on file Sexual Orientation Not on file documented as of this encounter Plan of Treatment Upcoming Encounters Date Type Department Care Team (Late st Contact Info) Description 08/11/2024 3:15 PM CDT Office Visit [facility] HE[facility] AND [facility]ULAR EP AT [facility] [address] [facility] [address] [place] [address] Bill De Anda MD [address] [facility] 2014 [place] [address] 08/18/2024 11:30 AM CDT Office Visit [facility] Care - [address] [address] [place] Wallace [place] [id number] [place] [address] 09/15/2024 11:30 AM CDT Office Visit [facility] HEART AND VASCULAR - [place] [id number] [place] [address] Flo Donahue MD [address] [facility] [address] [place] [address] 09/21/2024 11:00 AM CDT Office Visit [facility] Neurology [address] [facility] [address] [place] [address] Ashley Holloway, [facility] [address] [facility] [address] [place] [address] 10/05/2024 1:15 PM CDT Office Visit [facility] GASTR[facility] - [address] [facility] 102 [address] [facility] 102 [place] [address] Konrad Aburto, [facility] [address] [facility] [address] [place] [address] 11/26/2024 1:00 PM CDT Office Visit [facility] Pulmonology [facility] [address] [facility] [address] [place] [address] Silvio Avalos, [facility] [address] [place] [address] 12/27/2024 1:30 PM CDT Office Visit [facility] HE[facility] AND [facility]ULAR EP AT [facility] [address] [facility] [address] [place] [address] Guerrero Lind MD [address] [facility] [address] [place] [address] 09/22/2025 11:00 AM CDT Office Visit [facility] Neurology [address] [facility] [address] [place] [address] Carmine Castano MD [address] [facility] [address] [place] [address] documented as of this encounter Visit Diagnoses Not on filedocumented in this encounter Additional Health Concerns Assessment Noted Time PHQ-9 Depression Total Score: 2 08/08/19 24 3:47 PM CDT documented as of this encounter Care Teams Freezing Room Worker Relationship Specialty Start Date End Date Rodrig[place], [place] [address] [address] PCP - General 05/07/12 documented as of this encounter
--- OUTSIDE RECORDS SUMMARY | 2024-07-23 15:35 | XMS_ITS | Encounter Summary ---
Author Organization [facility] Address [address] [facility] [place] [address] Care Team Providers Care Support Director Name Role Phone Unavailable Primary Care Provider Unavailabl e Encounter Details Date Type Department Care Team (Late st Contact Info) Description 07/22/2023 Lab Requisition [facility] - DermPath Lab [address] [place] [phone] Birdie Brito APRN-CNP [facility] DERMATOLOGY [address] [place] [address] Neoplasm of uncertain behavior of skin Social History Tobacco Use Types Packs/Day Years Used Date Smoking Tobacco: Never Assessed Sex and Gender Information Value Date Recorded Sex Assigned at Not on file 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 The specimen consists of a shave biopsy measuring 10x7x2 mm. Jar 0. 12:58 PM CDT DERMATOPATHOLOGY LABORATORY Microscopic Description Specimen A. SKIN, left lateral hindu: The epidermis shows parakeratosis, full thickness disorderly [...] characteristic determined by the Dermatopathology Laboratory at [facility], directed by Dr. Collin Mckeon. These tests need not be, and therefore are not, approved by the [place] Food and Drug Administration. The tests are used for clinical purposes. Billing Codes Specimen Charges Stain Charges 63298 1 12:58 PM CDT DERMATOPATHOLOGY LABORATORY Embedded Images 12:58 PM CDT DERMATOPATHOLOGY LABORATORY Pathology/Cytolog y TISSUE SPECIMEN FROM SKIN / Unknown 07/22/2023 07/23/2023 2:55 PM CDT us Birdie Brito NEUROPSYCHOLOGIST-CASING TESTER LAB - PATHOLOGY/CY TOLOGY ORDERABLES Final Result DERMATOPATHOLOGY LABORATORY [facility] - Department of Dermatology [address] [place] [address], [facility] [phone] documented in this encounter Visit Diagnoses Diagnosis Neoplasm of uncertain behavior of skin documented in this encounter
--- OUTSIDE RECORDS SUMMARY | 2024-07-23 15:35 | XMS_ITS | Encounter Summary ---
Author Organization [facility] Address [address] [facility] [place] [address] Care Team Providers Care Lacing Cutter Name Role Phone Unavailable Primary Care Provider Unavailabl e Encounter Details Date Type Department Care Team (Late st Contact Info) Description 01/22/2024 Lab Requisition [facility] - DermPath Lab [address] [place] [phone] Birdie Brito APRN-CNP [facility] DERMATOLOGY [address] [place] [address] Neoplasm of uncertain behavior of skin Social History Tobacco Use Types Packs/Day Years Used Date Smoking Tobacco: Never Assessed Sex and Gender Information Value Date Recorded Sex Assigned at Not on file Legal Sex Male 6:23 PM TELESALES REPRESENTATIVE Gender Identity Not on file Sexual Orientation Not on file documented as of this encounter Plan of Treatment Not on file documented as of this encounter Procedures Procedure Name Priority Date/Time Associated Diagnosis Comments DERMATOPATHOLOGY Routine 01/22/2024 12:0 0 AM TELESALES REPRESENTATIVE Neoplasm of uncertain behavior of skin documented in this encounter Results * DERMATOPATHOLOGY (01/22/2024 12:00 AM TELESALES REPRESENTATIVE) Case Report Dermatopathology Report Case: [id number] Authorizing Provider: Birdie Brito, Collected: 01/22/2024 12:00 AM LODGING MANAGER-TYPE PHOTOGRAPHY SUPERVISOR Ordering Location: [facility] - Received: 01/23/2024 10:18 AM DermPath Lab Pathologist: Henrietta Carvalho MD Specimens: A) - Skin, left anterior jaw B) - Skin, left posterior jaw 2:41 PM TELESALES REPRESENTATIVE DERMATOPATHOLOGY LABORATORY Final Diagnosis Specimen A. 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 SKIN, left posterior jaw: GRANULOMATOUS DERMATITIS CONSISTENT WITH A RUPTURED CYST OR HAIR FOLLICLE (L72.0) DERMAL FIBROSIS (L90.5) 4 2:41 PM [facility] DERMATOPATHOLOGY LABORATORY Clinical History BCC 4 2:41 PM [facility] DERMATOPATHOLOGY LABORATORY Gross Description Specimen [...] measuring 9x8x2 mm. Jar 0. 2:41 PM [facility] DERMATOPATHOLOGY LABORATORY Microscopic Description Specimen [...] is surrounding dermal fibrosis. 4 2:41 PM [facility] DERMATOPATHOLOGY LABORATORY Disclaimer An external and internal positive and negative controls are appropriate for the histochemical, immunohistochemical and immunofluorescence stain(s) in this case (if any), except where stated explicitly. The performance characteristics of the stain(s) cited in this report were developed and its performance characteristic determined by the Dermatopathology Laboratory at [facility], directed by Dr. Collin Mckeon. These tests need not be, and therefore are not, approved by the [place] Food and Drug Administration. The tests are used for clinical purposes. Billing Codes Specimen Charges Stain Charges 67778 00622 1 1 4 2:41 PM TELESALES REPRESENTATIVE DERMATOPATHOLOGY LABORATORY Embedded Images 4 2:41 PM TELESALES REPRESENTATIVE DERMATOPATHOLOGY LABORATORY Pathology/Cytology TISSUE SPECIMEN FROM SKIN / Unknown 01/22/2024 01/23/2024 10:18 AM TELESALES REPRESENTATIVE Miscellaneous samples (specimen) TISSUE SPECIMEN FROM SKIN / Unknown 01/22/2024 01/23/2024 10:18 AM TELESALES REPRESENTATIVE us Birdie Brito LODGING MANAGER-TYPE PHOTOGRAPHY SUPERVISOR LAB - PATHOLOGY/CY TOLOGY ORDERABLES Final Result DERMATOPATHOLOGY LABORATORY [facility] - Department of Dermatology [facility] Specialized Medicine [address] [place] [address], [address] [phone] documented in this encounter Visit Diagnoses Diagnosis Neoplasm of uncertain behavior of skin documented in this encounter
--- OUTSIDE RECORDS SUMMARY | 2024-07-23 15:35 | XMS_ITS | Clinical Summary ---
Author Organization [facility] Address [address] [facility] [place] [address] Care Team Providers Care Director Of Teenage Activities Name Role Phone Unavailable Primary Care Provider Unavailabl e Source Comments [facility],non-owned Affiliates and Associated Physician Practices is amultiple site organization consisting of ambulatory clinics and hospital sitesin [place], [place], [place] and [place]. This disclosure is being madepursuant to the Care Everywhere program and may not contain all information available regarding this patient. 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 Gender Identity Not on file Sexual [...] Comments DERMATOPATHOLOGY Routine 05/04/2024 10:0 3 AM FURNITURE MOVER DRIVER Neoplasm of uncertain behavior of skin from Last 3 Months Results * DERMATOPATHOLOGY (05/04/2024 10:03 AM FURNITURE MOVER DRIVER) Case Report Dermatopathology Report Case: [id number] Authorizing Provider: Jose Brito MD Collected: 05/04/2024 10:03 AM Ordering Location: [facility] - Received: 05/07/2024 06:38 AM DermPath Lab Pathologist: Jana Brown MD Specimen: Skin, left anterior jaw 12:56 PM FURNITURE MOVER DRIVER DERMATOPATHOLOGY LABORATORY Final Diagnosis Specimen A. SKIN, left anterior jaw: DERMAL SCAR, PRESENT AT THE BASE RESIDUAL SQUAMOUS PROLIFERATION NOT IDENTIFIED (L90.5) 12:56 PM FURNITURE MOVER DRIVER DERMATOPATHOLOGY LABORATORY Clinical History Atypical Squamous Proliferation Prior biopsy 12:56 PM FURNITURE MOVER DRIVER DERMATOPATHOLOGY LABORATORY Gross Description Specimen A: Received is one formalin filled container labeled with the patient's name and designated left anterior jaw. The specimen consists of a shave biopsy measuring 61t80i2 mm. Jar 0. 12:56 PM FURNITURE MOVER DRIVER DERMATOPATHOLOGY LABORATORY Microscopic Description Specimen A. SKIN, left anterior jaw: There are elongated blood vessels, some of which are oriented perpendicular to the skin surface, which is present at the base of the specimen. No residual squamous proliferation is identified. 5 12:56 PM [facility] DERMATOPATHOLOGY LABORATORY Disclaimer An external and internal positive and negative controls are appropriate for the histochemical, immunohistochemical and immunofluorescence stain(s) in this case (if any), except where stated explicitly. The performance characteristics of the stain(s) cited in this report were developed and its performance characteristic determined by the Dermatopathology Laboratory at [facility], directed by Dr. Collin Mckeon. These tests need not be, and therefore are not, approved by the [place] Food and Drug Administration. The tests are used for clinical purposes. Billing Codes Specimen Charges Stain Charges 54852 1 5 12:56 PM [facility] DERMATOPATHOLOGY LABORATORY Embedded Images 5 12:56 PM [facility] DERMATOPATHOLOGY LABORATORY Pathology/Cytolo gy TISSUE SPECIMEN FROM SKIN / Unknown 05/04/2024 10:03 AM FURNITURE MOVER DRIVER 05/07/2024 6:38 AM FURNITURE MOVER DRIVER Jose Brito MD LAB - PATHOLOGY/CYTOLOGY BISI GARCIA Final Result DERMATOPATHOLOGY LABORATORY [facility] - Department of Dermatology [facility] Medicine [address] [place] [address], [address] [phone] from Last 3 Months [place] [address] [employer] MANAGED MEDICARE ADV
--- OUTSIDE RECORDS SUMMARY | 2024-07-23 15:35 | XMS_ITS | Encounter Summary ---
Author Organization [facility] Address [address] [place] [address] Care Team Providers Care Clinical Nursing Intern Name Role Phone Mirian Wallace MD Primary Care Provider [phone] Encounter Details Date Type Department Care Team (Late st Contact Info) Description 12/16/2022 Abstract [facility] Neurosurgery - Medical [place] [address] [facility] [address] [place] [address] Aman Justice MD [address] [facility] [address] [place] [address] Social History Tobacco Use Types [...] on file Legal Sex Male 4:59 AM PARTS ORDER AND STOCK CLERK Gender Identity Not on file Sexual Orientation Not on file documented as of this encounter Plan of Treatment Upcoming Encounters Date Type Department Care Team (Late st Contact Info) Description 08/11/2024 3:15 PM CDT Office Visit [facility] HE[facility]ULAR EP AT [facility] [address] [facility] [address] [place] [address] Bill De Anda MD [address] [facility] 2014 [place] [address] 08/18/2024 11:30 AM CDT Office Visit [facility] Primary Care - [facility] [address] [address] [place] [address] [address] 09/15/2024 11:30 AM CDT Office Visit [facility] HEART AND VASCULAR [place] [address] [address] Flo Donahue MD [address] [facility] [address] [place] [address] 09/21/2024 11:00 AM CDT Office Visit [facility] Neurology [address] [facility] [address] [place] [address] Ashley Holloway, NOC ANALYST [address] [facility] [address] [place] [address] 10/05/2024 1:15 PM CDT Office [facility] GASTROENTEROLOGY - [address] [facility] 102 [address] [facility] 102 [place] [address] Konrad Aburto, [facility] [address] [facility] 102 [place] [address] 11/26/2024 1:00 PM CDT Office Visit [facility] Pulmonology [facility] [address] [facility] [address] [place] [address] Silvio Avalos, [facility] [address] [facility] [address] 12/27/2024 1:30 PM CDT Office Visit [facility] HEART AND [facility]ASCULAR EP AT [facility] [address] [facility] [address] [place] [address] Guerrero Lind MD [address] [facility] [address] [place] [address] 09/22/2025 11:00 AM CDT Office Visit [facility] Neurology [address] [facility] [address] [place] [address] Carmine Castano MD [address] [facility] [address] [place] [address] documented as of this encounter Visit Diagnoses Not on filedocumented in this encounter Additional Health Concerns Infection Onset Date Last Indicated Resolved Time R/O C. diff 01/23/2024 01/22/2024 01/23/2024 5:28 PM PARTS ORDER AND STOCK CLERK Assessment Noted Time PHQ-9 Depression Total Score: 1 01/12/20 22 12:56 PM CDT documented as of this encounter Care Teams Clinical Nursing Intern Relationship Specialty [place] [address] [facility] [address] [place] [address] PCP - General 05/07/12 documented as of this encounter
--- OUTSIDE RECORDS SUMMARY | 2024-07-23 15:35 | XMS_ITS | Encounter Summary ---
Author Organization [facility] Address [address] [place] [address] Care Team Providers Care Ball Rolling Machine Operator Name Role Phone Mirian Wallace MD Primary Care Provider [phone] Reason for Visit * Reason Onset Date Comments Sheduling Procedure 12/18/2023 Encounter Details Date Type Department Care Team (Late st Contact Info) Description 12/18/2023 Telephone [facility] Heart and Vascular - [place] [address] [address] [facility] [address] [place] [address] Bill De Anda MD [address] [facility] [address] [place] [address] Sheduling Procedure Social History Tobacco [...] on file Legal Sex Male 4:59 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 [address] [place] [address] 09/21/2024 11:00 AM CDT Office Visit [facility] Neurology [address] [facility] [address] [place] [address] Ashley Holloway, [facility] [address] [facility] [address] [place] [address] 10/05/2024 1:15 PM CDT Office Visit [facility] GASTROENTEROLOGY - [address] [facility] 102 [address] [facility] 102 [place] [address] Konrad Aburto, [facility] [address] [facility] [address] [place] [address] 11/26/2024 1:00 PM CDT Office Visit [facility] Pulmonology [facility] [address] [facility] [address] [place] [address] Silvio Avalos, [facility] [address] [place] [address] 12/27/2024 1:30 PM CDT Office Visit [facility] HEART AND VASCULAR EP AT [facility] [address] [facility] [address] [place] [address] Guerrero Lind MD [address] [facility] [address] [place] [address] 09/22/2025 11:00 AM CDT Office Visit [facility] Neurology [address] [facility] [address] [place] [address] Carmine Castano MD [address] [facility] [address] [place] [address] documented as of this encounter Visit Diagnoses Not on filedocumented in this encounter Additional Health Concerns Infection Onset Date Last Indicated Resolved Time R/O C. diff 01/23/2024 01/22/2024 01/23/2024 5:28 PM SHOOK MACHINE OPERATOR Assessment Noted Time PHQ-9 Depression Total Score: 2 08/08/19 24 3:47 PM CDT documented as of this encounter Care Teams Ball Rolling Machine Operator Relationship Specialty [place] [address] [address] PCP - General 05/07/12 documented as of this encounter
--- OUTSIDE RECORDS SUMMARY | 2024-07-23 15:35 | XMS_ITS | Encounter Summary ---
Author Organization [facility] Address [address] [place] [address] Care Team Providers Care Wordpress Developer Name Role Phone Mirian Wallace MD Primary Care Provider [phone] Encounter Details Date Type Department Care Team (Late st Contact Info) Description 03/24/1998 Outpatient Historical [facility] Zane Renee MD [facility] [place], [place] [id number] Er, Authorized P NO ADDRESS ON FILE Sprain of lumbar region (Primary Dx) Social History Tobacco Use Types Packs/Day Years Used Date Smoking Tobacco: Never Assessed Sex and Gender Information Value Date Recorded Sex Assigned at Not on file Legal Sex Male 4:59 AM SR. CONSULTANT Gender Identity Not on file Sexual Orientation Not on file documented as of this encounter Plan of Treatment Upcoming Encounters Date Type Department Care Team (Late Contact Info) Description 08/11/2024 3:15 PM CDT Office Visit [facility] HEART AND VASCULAR EP AT [place] [address] [facility] [address] [place] [address] Bill De Anda MD [facility] [address] [facility] [address] [place] [address] 08/18/2024 11:30 AM CDT Office Visit [facility] Primary Care - [address] [place] [address] [place] [address] [facility] [address] [place] [phone] 09/15/2024 11:30 AM CDT Office Visit [facility] HEART AND VASCULAR - [place] [id number] [facility] [address] [place] [phone] Flo Donahue MD [address] [facility] [address] [place] [address] 09/21/2024 11:00 AM CDT Office Visit [facility] Neurology [facility] [address] [facility] [address] [place] [address] Ashely Holloway, [facility] [address] [facility] [address] [place] [address] 10/05/2024 1:15 PM CDT Office Visit [facility] GASTROENTEROLOGY - [address] [facility] [address] [address] [address] [facility] [address] [place] [address] Konrad Aburto, [facility] [address] [facility] [address] [place] [phone] 11/26/2024 1:00 PM CDT Office Visit [facility] Pulmonology [facility] [address] [facility] [address] [place] [address] Silvio Avalos, [facility] [address] [facility] [place] [address] 12/27/2024 1:30 PM CDT Office Visit [facility] HEART AND VASCULAR EP AT [facility] [address] [facility] [address] [place] [address] Guerrero Lind MD [address] [facility] [address] [place] [address] 09/22/2025 11:00 AM CDT Office Visit [facility] Neurology [address] [facility] [address] [place] [address] Carmine Castano MD [address] [facility] [address] [place] [address] documented as of this encounter Visit Diagnoses Diagnosis Sprain of lumbar region- Primary documented in this encounter Additional Health Concerns Infection Onset Date Last Indicated Resolved Time C Diff Comment:10/26/15 08/08/2017-outside 60 days from last positive culture obtianed.resolved. 10/27/2015 10/27/201503/2017 3:50 PM CDT R/O COVID-19 12/10/2019 12/10/2019 12/13/2019 1:16 AM CDT COVID-19 12/11/2019 12/11/2019 01/10/2020 1:16 AM SR. CONSULTANT R/O C. diff 08/04/2021 08/03/2021 08/04/2021 2:45 PM CDT R/O Respiratory 05/13/2022 05/13/2022 05/14/2022 1 2:32 AM SR. CONSULTANT R/O GI Pathogen 05/13/2022 05/13/2022 05/14/2022 1 2:32 AM SR. CONSULTANT R/O C. diff 12/09/2022 12/09/2022 12/10/2022 1:06 PM CDT R/O C. diff 01/23/2024 01/22/2024 01/23/2024 5:28 PM SR. CONSULTANT documented as of this encounter Care Teams Wordpress Developer Relationship Specialty [place] [address] [facility] [address] [place] [address] PCP - General 05/07/12 documented as of this encounter
--- OUTSIDE RECORDS SUMMARY | 2024-07-23 15:35 | XMS_ITS | Encounter Summary ---
Author Organization [facility] Address [address] [place] [place] [address] Care Team Providers Care Administrative Tech Name Role Phone Unavailable Primary Care Provider Unavailabl e Encounter Details Date Type Department Care Team (Late st Contact Info) Description 05/04/2024 Lab Requisition [facility] - DermPath Lab [address] [place] [phone] Jose Brito MD [facility] DERMATOLOGY [address] [place] [phone] Neoplasm of uncertain behavior of skin Social History Tobacco Use Types Packs/Day Years Used Date Smoking Tobacco: Never Assessed Sex and Gender Information Value Date Recorded Sex Assigned at Not on file Legal Sex Male 6:23 PM DENTURE FINISHER Gender Identity Not on file Sexual Orientation Not on file documented as of this encounter Plan of Treatment Not on file documented as of this encounter Procedures Procedure Name Priority Date/Time Associated Diagnosis Comments DERMATOPATHOLOGY Routine 05/04/2024 10:0 3 AM DENTURE FINISHER Neoplasm of uncertain behavior of skin documented in this encounter Results * DERMATOPATHOLOGY (05/04/2024 10:03 AM DENTURE FINISHER) Case Report Dermatopathology Report Case: [id number] Authorizing Provider: Jose Brito MD Collected: 05/04/2024 10:03 AM Ordering Location: [facility] Physician [facility] - Received: 05/07/2024 06:38 AM DermPath Lab Pathologist: Jana Brown MD Specimen: Skin, left anterior jaw 12:56 PM DENTURE FINISHER DERMATOPATHOLOGY LABORATORY Final Diagnosis Specimen A. SKIN, left anterior jaw: DERMAL SCAR, PRESENT AT THE BASE RESIDUAL SQUAMOUS PROLIFERATION NOT IDENTIFIED (L90.5) 12:56 PM [facility] DERMATOPATHOLOGY LABORATORY Clinical History Atypical Squamous Proliferation Prior biopsy 12:56 PM [facility] DERMATOPATHOLOGY LABORATORY Gross Description Specimen A: Received is one formalin filled container labeled with the patient's name and designated left anterior jaw. The specimen consists of a shave biopsy measuring 82o72q5 mm. Jar 0. 12:56 PM [facility] DERMATOPATHOLOGY LABORATORY Microscopic Description Specimen A. SKIN, left anterior jaw: There are elongated blood vessels, some of which are oriented perpendicular to the skin surface, which is present at the base of the specimen. No residual squamous proliferation is identified. 12:56 PM [facility] DERMATOPATHOLOGY LABORATORY Disclaimer An external and internal positive and negative controls are appropriate for the histochemical, immunohistochemical and immunofluorescence stain(s) in this case (if any), except where stated explicitly. The performance characteristics of the stain(s) cited in this report were developed and its performance characteristic determined by the Dermatopathology Laboratory at [facility], directed by Dr. Collin cMkeon. These tests need not be, and therefore are not, approved by the [place] Food and Drug Administration. The tests are used for clinical purposes. Billing Codes Specimen Charges Stain Charges 08935 1 12:56 PM [facility] DERMATOPATHOLOGY LABORATORY Embedded Images 12:56 PM [facility] DERMATOPATHOLOGY LABORATORY Pathology/Cytolo gy TISSUE SPECIMEN FROM SKIN / Unknown 05/04/2024 10:03 AM DENTURE FINISHER 05/07/2024 6:38 AM [facility] us Jose Brito MD LAB - PATHOLOGY/CYTOLOGY BISI GARCIA Final Result DERMATOPATHOLOGY LABORATORY [facility] - Department of Dermatology [address] [place] [address], [facility] [phone] documented in this encounter Visit Diagnoses Diagnosis Neoplasm of uncertain behavior of skin documented in this encounter
--- OUTSIDE RECORDS SUMMARY | 2024-07-23 15:36 | XMS_ITS | Continuity of Care Document ---
Author Organization [facility] Address [address] [place] [address] [address] [place] [address] Phone Care Team Providers Care Polisher Balance Screwhead Name Role Phone Short PT, Kathleen Unavailable [...] Diagnoses Date Provider Providers Copied on Encounter [facility], [id number], tel:[phone] [place] No Information Mar-1 6202 2 Short Kathleen. . Referring Provider: Shukri Shannon [address], [place], [address]. tel:[phone] [facility] [address], [id number], tel:[phone] [place] No Information Mar-0 8202 2 Anusha Grimes. [address] [facility], [address], [place], [facility], [place]. tel:[phone] Referring Provider: Shukri Shannon [address], [place], [address]. tel:[phone] [facility] [address] [place] [address], [place], [place], [id number], tel:[phone] [place] No Information Mar-0 4-202 2 [place]. . Referring Provider: Shukri Shannon [address], [place], [address]. tel:[phone] [facility] [place] [address], [place], [place], [id number], tel:[phone] [place] No Information May-0 2 Schranck Cornelio. [address] [place] [address], [address], [place], [place], [facility], . tel: [phone] Referring Provider: Shukri Shannon, [address], [place], [address]. tel:[phone] [facility] [facility], [place], [place], [id number], [place] tel:[phone] [place] No Information 2 [place]. . Referring Provider: [address], [place], [address]. tel:[phone] [facility], [address] [facility], [place], [place], [id number], tel:[phone] [place] No Information 2 Anusha Grimes. [address] [place] [address], [address], [place], [place], [facility], . tel: [phone] Referring Provider: [address], [place], [address]. tel:[phone] [facility] [facility], [place], [place], [id number], [place] tel:[phone] [place] No Information 2 Garrels Itzel. . Referring Provider: [address], [place], [address]. tel: [facility], [place], [place], [id number], [place] tel:[phone] [place] No Information 2 [place]. . Referring Provider: [address], [place], [address]. tel: [facility], [place], [place], [id number], tel:[phone] [place] No Information Sep-2 0-201 6 David Turner , [place], . [facility] [place] [address], [place], [place], [id number], tel:[phone] [place] No Information Sep-0 8-201 6 David Turner , [place], [place]. [facility] [place] [address], [place], [place], [id number], tel:[phone] [place] No Information Sep-0 6-201 6 David Turner , [place], . [facility], [address] [place] [address], [place], [place], [id number], tel:[phone] [place] Other spondylosis with myelopathy, lumbar regionLumbago with sciatica, left sideOther intervertebral disc degeneration, lumbar regionPain, unspecified Sep-0 1-201 6 David Turner , [place], . [facility], [address] [place] [address], [place], [place], [id number], tel:[phone] [place] No Information Aug-3 0-201 6 David Turner [place], [place], . Family History Family Member Type Diagnosis Age At Onset No Information Payers Payer name Insurance type Covered constitution party ID Authorbulla tirenu(s) Medicare [place] [id number] [employer] Senior Supplemental [id number] Social History Type Description Quantity Date Captured [...]
--- NOTE | 2024-07-23 15:41 | ADMGEN ---
This patient, Romario Bonds, was admitted to 3 [facility] Surg Room 301-01. Patient/family oriented to hospital policies and general routines including ID bracelet, bed and alarms, visiting hours, pain management, procedures, bathroom and other care routines, personal items, smoking policy, room service/diet, and visiting hours. Information on how to activate the Rapid Response Team has been discussed. Patient/Family are encouraged to report perceived risks to care and to ask questions if they do not understand what they are told or what they should do.
[2024-07-23] MEDS: SODIUM CHLORIDE 0.9% IV 1,000 ML 125 ML IV CONT (17:29)
[2024-07-23] MEDS: busPIRone HCL 5 MG TABLET 15 MG PO (17:29)
[2024-07-23] MEDS: DOCUSATE SODIUM 100 MG CAPSULE PO (17:29)
[2024-07-23] MEDS: HYDROcodone/acetaminophen (*CRX) 5-325 MG TABLET 1 TAB PO (17:38)
[2024-07-23] MEDS: TRIMETHOBENZAMIDE HCL 200 MG/2 ML VIAL IM (17:39)
--- NOTE | 2024-07-23 18:45 | ECG_ITS ---
Test Date: 2024-07-23 19:18:57 Measurements Intervals [place] Rate: 71 P: 20 CT: 252 QRS: -35 QRSD: 107 T: 66 QT: 431 QTc: 469 Interpretive Statements SINUS RHYTHM WITH FIRST DEGREE AV BLOCK MARKED LEFT AXIS DEVIATION [QRS AXIS < -30] NONSPECIFIC T-WAVE ABNORMALITY ABNORMAL ECG Compared to ECG 07/23/2024 10:51:02 Left-axis deviation now present T-wave abnormality now present Left anterior fascicular block no longer present Electronically Signed On 07-24-2024 08:04:46 CDT by Brooks Givens M.D.
[2024-07-23 18:51] LABS: Hematocrit 27.4 % (42.0-52.0); Mean Corpuscular HGB Conc 32.8 g/dl (32-36); Mean Corpuscular Hemoglobin 30.6 pg (26-34); Mean Corpuscular Volume 93.2 fl (80-100); Mean Platelet Volume 10.5 fl (7.4-10.4); Platelet Count Result 269 k/mm3 (150-375); Red Blood Count 2.94 M/mm3 (4.6-6.20); Red Cell Distribution Width 15.8 % (11.5-14.5); White Blood Count 10.8 K/mm3 (4.5-10.0)
[2024-07-23] MEDS: SODIUM CHLORIDE 0.9% IV 1,000 ML 999 ML IV CONT (19:00)
[2024-07-23 19:03] LABS: INR 1.9; Prothrombin Time 21.7 Seconds (11.1-14.7)
[2024-07-23 19:04] LABS: Partial Thromboplastin Time 34.7 Seconds (22.3-36.8)
[2024-07-23 19:06] LABS: Lactic Acid Reflex 2.3 mmol/L (0.7-2.0)
[2024-07-23 19:07] LABS: Alanine Aminotransferase 79 U/L (6-50); Albumin Level 3.2 g/dL (3.5-5.1); Alkaline Phosphatase 181 U/L (38-126); Anion Gap 11 mmol/L (4-12); Aspartate Amino Transferase 56 U/L (17-59); Bilirubin,Total 1.5 mg/dL (0.2-1.3); Blood Urea Nitrogen 49 mg/dL (9-20); Calcium 8.4 mg/dL (8.4-10.2); Carbon Dioxide 24 mmol/L (22-30); Chloride 99 mmol/L (98-107); Estimated CRCL calculation 51 ml/min; Estimated Glomerular Filt Rate 41; Glucose 201 mg/dL (65-110); Potassium 3.6 mmol/L (3.4-5.0); Sodium 134 mmol/L (137-145)
--- NOTE | 2024-07-23 19:10 | PC.NURSE ---
pt recieved from 3rd floor. Pt diaphoretic c/o slight nausea, but alert x 3. pt placed on monitor and NS bolus continued.
[2024-07-23 19:20] LABS: Troponin I < 0.012 ng/mL (0.000-0.034)
[2024-07-23 20:49] LABS: Reflex Lactic Acid Yes or No Add Lactic
[2024-07-23 21:29] LABS: Lactic Acid 1.2 mmol/L (0.7-2.0)
[2024-07-23] MEDS: metroNIDAZOLE 500 MG/ISO 100ML 500 MG/100 ML BAG 100 MG IVPB (22:00)
[2024-07-23] MEDS: CEFEPIME 2 GM/NS 50 ML 2 GM/50 ML BAG IVPB (23:00)
[2024-07-24] VITALS (19 sets, daily range): BP systolic 90–150; BP diastolic 44–80; PULSE 70–91; RESP 10–16; TEMP 36.4–36.9; O2SAT 94–100
[2024-07-24 00:40] LABS: Glucose Point of Care 199 mg/dl (65-105)
[2024-07-24] MEDS: SODIUM CHLORIDE 0.9% IV 1,000 ML 125 ML IV CONT (01:30)
[2024-07-24 02:49] LABS: Basophils Absolute Auto 0.1 K/mm3 (0.0-0.1); Basophils Percent Auto 0.8 % (0.2-1.2); Eosinophils Absolute Auto 0.1 K/mm3 (0-0.3); Eosinophils Percent Auto 1.2 % (0-4.4); Hematocrit 28.4 % (42.0-52.0); Hemoglobin 9.6 g/dL (14.0-18.0); Immature Granulocyte Absolute 0.57 K/mm3 (0.00-0.031); Immature Granulocyte Percent A 7.3 % (0-0.5); Lymphocytes Absolute Auto 2.36 K/mm3 (0.9-3.2); Lymphocytes Percent Auto 30.3 % (18.3-44.2); Mean Corpuscular HGB Conc 33.8 g/dl (32-36); Mean Corpuscular Hemoglobin 30.6 pg (26-34); Mean Corpuscular Volume 90.4 fl (80-100); Mean Platelet Volume 10.6 fl (7.4-10.4); Monocytes Absolute Auto 0.8 K/mm3 (0.1-0.6); Monocytes Percent Auto 10.5 % (2.6-8.5); Neutrophils Absolute Auto 3.9 K/mm3 (1.3-6.7); Neutrophils Percent Auto 49.9 % (45.5-73.1); Platelet Count Result 252 k/mm3 (150-375); Red Blood Count 3.14 M/mm3 (4.6-6.20); Red Cell Distribution Width 15.2 % (11.5-14.5); White Blood Count 7.8 K/mm3 (4.5-10.0)
[2024-07-24 02:59] LABS: Anion Gap 7 mmol/L (4-12); Blood Urea Nitrogen 53 mg/dL (9-20); Calcium 8.4 mg/dL (8.4-10.2); Carbon Dioxide 28 mmol/L (22-30); Chloride 100 mmol/L (98-107); Estimated CRCL calculation 62 ml/min; Estimated Glomerular Filt Rate 51; Glucose 141 mg/dL (65-110); Potassium 3.8 mmol/L (3.4-5.0); Sodium 135 mmol/L (137-145)
[2024-07-24] MEDS: metroNIDAZOLE 500 MG/ISO 100ML 500 MG/100 ML BAG 100 MG IVPB ×3 (06:00→22:48)
[2024-07-24 08:21] LABS: Hematocrit 27.8 % (42.0-52.0); Hemoglobin 9.2 g/dL (14.0-18.0)
[2024-07-24] MEDS: buPROPion HCL XL (24 HR) 150 MG TABCR 300 MG PO (08:23)
[2024-07-24] MEDS: DOCUSATE SODIUM 100 MG CAPSULE PO ×2 (08:23→17:25)
[2024-07-24] MEDS: TAMSULOSIN HCL 0.4 MG CAPSULE PO (08:23)
[2024-07-24] MEDS: busPIRone HCL 5 MG TABLET 15 MG PO ×2 (08:23→17:25)
[2024-07-24] MEDS: PREGABALIN (*CRX) 50 MG CAPSULE 200 MG PO ×2 (08:23→20:57)
[2024-07-24] MEDS: DULoxetine HCL 60 MG CAPSULE.DR PO (08:23)
[2024-07-24] MEDS: SODIUM CHLORIDE 0.9% IV 1,000 ML 75 ML IV CONT ×2 (08:36→18:35)
[2024-07-24] MEDS: PANTOPRAZOLE SODIUM IV 40 MG VIAL IV PUSH ×2 (08:36→20:57)
[2024-07-24] MEDS: ALBUMIN HUMAN 5% 250 ML IV CONT (08:41)
[2024-07-24] MEDS: CEFEPIME 2 GM/NS 50 ML 2 GM/50 ML BAG IVPB ×2 (11:01→21:04)
--- NOTE | 2024-07-24 12:31 | P.CONIN_ITS ---
Assessment and Plan Assessment and plan (1) Acute blood loss anemia: Code(s): D62 - Acute posthemorrhagic anemia Status: Acute Assessment and Plan: Patient syncopal, anemic could be related to GI bleed as he had melena/black tardy stools -could be related to sphincterotomy which was done on 07/20/2024 -patient was transfuse 1 unit of packed RBCs -hemoglobin remained stable -INR is 1.9, will transfuse 1 unit of FFP and give vitamin K (2) Melena: Code(s): K92.1 - Melena Status: Acute Assessment and Plan: As above -appreciate GI evaluation and recommendation (3) Acute kidney injury: Code(s): N17.9 - Acute kidney failure, unspecified Status: Acute Assessment and Plan: Acute kidney injury likely related to hypovolemia, decreased p.o. intake of solids and liquids -patient given IV fluids, packed RBCs -creatinine improving, urine output has been adequate -continue to encourage oral intake, especially fluid -monitor urine output, renal function electrolytes (4) Cholelithiasis: Code(s): K80.20 - Calculus of gallbladder without cholecystitis without obstruction Status: Acute Assessment and Plan: Patient with cholelithiasis -discuss with surgery, likely cholecystectomy on 07/25/2024 if OR is available -will keep NPO after midnight if surgery is confirmed (5) Elevated liver enzymes: Code(s): R74.8 - Abnormal levels of other serum enzymes Status: Acute Assessment and Plan: Elevated LFTs likely related to cholelithiasis, trending down since last admission -total bilirubin is also decreasing since last admission -continue to monitor (6) Weakness: Code(s): R53.1 - Weakness Status: Acute Assessment and Plan: States he feels better and perked up after fluids and packed RBCs (7) Sepsis: Code(s): A41.9 - Sepsis, unspecified organism Status: Acute Assessment and Plan: Hypotension multifactorial, likely related to decreased p.o. intake, GI bleed,, infection -continue cefepime, Flagyl (07/23) -blood pressures have been stable after IV fluids, albumin, packed RBC -continue to monitor closely in the ICU today (8) Syncope: Code(s): R55 - Syncope and collapse Status: Acute Assessment and Plan: Syncope could be related to generalized weakness, hypotension, vasovagal, anemia -patient is more awake, alert now hemodynamically stable -will have PT/OT evaluate the patient Plan DVT prophylaxis: SCDs, no chemoprophylaxis likely related to be GI bleed Stress ulcer prophylaxis: Protonix IV q.12 hours Nutrition: Clear liquid diet Code Status: Full code Critical Care Time Spent: 48 minutes Due to a high probability of clinically significant, life threatening deterioration, the patient required my highest level of preparedness to intervene emergently and I personally spent this critical care time directly and personally managing the patient. This critical care time included obtaining a history; examining the patient; pulse oximetry; ordering and review of studies; arranging urgent treatment with development of a management plan; evaluation of patient's response to treatment; frequent reassessment; and discussions with other providers. It was exclusive of separately billable procedures and treating other patients and teaching time. Please see Assessment and Plan section and the rest of the note for further information on patient assessment and treatment This dictation may have been done utilizing a voice recognition system. Attempts have been made to correct errors. However, there may be uncorrected grammatical, spelling, and recognitions errors present. [employer] Consult Note Consult date: 07/24/24 Reason for consult: Hypotension, presyncope/syncope, melena, anemia, acute kidney injury HPI: Romario Bonds is a 73 year old male with past medical history of alcohol use, hypertension, hyperlipidemia, gout, cholelithiasis, obstructive sleep apnea, presented the ED on 07/23/2024 with complains of generalized weakness. Patient was recently admitted to [facility] from 07/15/2024 to 07/21/2024 a was admitted for elevated liver enzymes, choledocholithiasis and cholelithiasis along with sepsis and bacteremia -Streptococcus gallolyticus, patient was discharged home on 07/21/2024 on antibiotics for 2 days. He complained of generalized weakness, cold sweats without any nausea vomiting. Unable to take solids or liquids because he was feeling sick to the stomach. In the ER patient's WBC count was 10.8, hemoglobin of 9.0 (11.9 on 07/21). Sodium 133, BUN 38,, creatinine 1.66 total bili 1.6, AST 64, ALT 95, lipase 69. CT scan of the abdomen and pelvis showed epiploic appendagitis along the descending colon. Cholelithiasis, diverticulosis, prostatomegaly. Will patient was on the medical floor, he got up to the bedside commode to have a bowel movement which was dark tarry stools, patient had a syncopal episode and was unresponsive with hypotension. Patient was given IV fluid bolus and transferred to the ICU for further management. In the ICU patient was given additional IV fluids and albumin with improvement in blood pressures. Patient was also given 1 unit of packed RBCs for anemia. Patient was transferred to the ICU for further management Patient seen and examined the ICU this morning, is awake, alert, oriented, nonfocal. Planes injected with, states he feels better but once his gallbladder out. He also complained of black tarry stools. Patient did receive 1 unit of packed RBCs overnight. Blood pressures have remained stable and the 120 to 130s systolic. Denies any chest pain, shortness to breath, abdominal pain, nausea vomiting at this time. Urine output has been good, creatinine improving 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 Sepsis Gram-positive bacteremia Cholelithiasis SIRS (systemic inflammatory response syndrome) HONORIO (obstructive sleep apnea) Balanitis Gout Hyperlipidemia HTN (hypertension) Surgical History Surgical History H/O angioplasty Family History Family History Sibling Diabetes mellitus Family history of mental disorder, Onset Age: 63 Family history of cardiovascular disease, Onset Age: 63 Acute myocardial infarction Family history of malignant neoplasm Mother Family history of mental disorder, Onset Age: 56 Other Family history of seizure disorder Social History Social History Smoking packs per day: 2 Smoking cigarettes per day: 40.0 Years smoked: 15 Smoking pack-years: 30.00 Smoking status: Former smoker Alcohol intake: current Drinks per week: 56 Alcohol use details: DRINKING LESS CURRENTLY Substance use type: does not use Do You Feel Safe in your Home?: Yes Lack of Transportation: No Lack of Food: Never True Current Housing: I Have Housing Concerned About Future Housing: No Difficulty Paying Gas/Electric Bills: No Difficulty Paying for Meds: No Currently Unemployed: No Education: Associate Degree Difficulty w/ Childcare or Family Care: No Living arrangements: with family Additional living arrangements comments: Spiritual care concerns: No Meds Home Medications and Allergies Home Medications ?Medication ?Instructions ?Recorded ?Confirmed ?Type amlodipine 5 mg tablet 5 mg PO DAILY 10/27/19 07/23/24 History bupropion HCl 300 mg 24 hr tablet, 300 mg PO QAM 10/27/19 07/23/24 History extended release clonazepam 1 mg tablet 1 mg PO DAILY PRN anxiety 10/27/19 07/23/24 History buspirone 15 mg tablet 15 mg PO BID 07/15/24 07/23/24 History evolocumab 140 mg/mL subcutaneous 140 mg subcut .every other week 07/15/24 07/23/24 History pen injector (Repatha SureNelsonick) furosemide 20 mg tablet 20 mg PO DAILY 07/15/24 07/23/24 History pregabalin 200 mg capsule 200 mg PO Q12H 07/15/24 07/23/24 History semaglutide 0.25 mg or 0.5 mg (2 0.25 mg subcut WEEKLY 07/15/24 07/23/24 History mg/3 mL) subcutaneous pen injector (Ozempic) sildenafil (pulm.hypertension) 20 20 mg PO PRN PRN sexual activity 07/15/24 07/23/24 History mg tablet tadalafil 5 mg tablet 5 mg PO PRN PRN sexual activity 07/15/24 07/23/24 History tamsulosin 0.4 mg capsule 0.4 mg PO DAILY 07/15/24 07/23/24 History atorvastatin 20 mg tablet 20 mg PO DAILY 07/16/24 07/23/24 History carvedilol 3.125 mg tablet 3.125 mg PO BID 07/16/24 07/23/24 History duloxetine 60 mg capsule,delayed 60 mg PO DAILY 07/16/24 07/23/24 History release felodipine 10 mg tablet,extended 10 mg PO DAILY 07/16/24 07/23/24 History release 24 hr fluticasone propionate 50 1 spray intranasal Q12H PRN nasal 07/16/24 07/23/24 History mcg/actuation nasal congestion spray,suspension lisinopril 40 mg tablet 40 mg PO DAILY 07/16/24 07/23/24 History potassium chloride 20 mEq 20 meq PO DAILY 07/16/24 07/23/24 History tablet,extended release (K-Tab) rivaroxaban 20 mg tablet 20 mg PO DAILY 07/16/24 07/23/24 History tizanidine 4 mg capsule 4 mg PO Q6H PRN muscle spasticity 07/16/24 07/23/24 History levofloxacin 750 mg tablet 750 mg PO DAILY #5 tabs 07/21/24 07/23/24 Rx metronidazole 500 mg tablet 500 mg PO Q8HR 6 days #18 tabs 07/21/24 07/23/24 Rx omeprazole 40 mg capsule,delayed 40 mg PO HS 07/22/24 07/23/24 History release Allergies Allergy/AdvReac Type Severity Reaction Status Date / Time citalopram Allergy Unknown Hives Verified 07/22/24 14:38 hydralazine Allergy Unknown Hives Verified 07/22/24 14:38 Penicillins Allergy Unknown hives Verified 07/22/24 14:38 Vital Signs Vital Signs - 24 hr 07/23/24 17:45 07/23/24 18:15 07/23/24 18:20 Temperature Pulse Rate 75 85 Respiratory Rate Blood Pressure 63/47 L 88/40 L Pulse Oximetry 100 99 Oxygen Delivery Room Air 07/23/24 18:45 07/23/24 19:00 07/23/24 19:00 Temperature Pulse Rate 80 74 74 Respiratory Rate 16 Blood Pressure 84/46 L 78/41 L 89/49 L Pulse Oximetry 100 97 94 Oxygen Delivery 07/23/24 19:15 07/23/24 20:00 07/23/24 20:00 Temperature 98.1 F Pulse Rate 79 79 78 Respiratory Rate 22 H 10 L 12 Blood Pressure 88/45 L 89/50 L Pulse Oximetry 100 100 100 Oxygen Delivery Room Air Room Air 07/23/24 20:15 07/23/24 22:00 07/23/24 22:11 Temperature 98.7 F 98.7 F Pulse Rate 79 72 84 Respiratory Rate 8 L 10 L 12 Blood Pressure 103/61 89/50 L 110/53 L Pulse Oximetry 100 98 100 Oxygen Delivery 07/23/24 22:28 07/23/24 23:28 07/24/24 00:00 Temperature 97.8 F 98.3 F 98.3 F Pulse Rate 81 76 74 Respiratory Rate 12 12 12 Blood Pressure 103/61 96/63 L 101/57 L Pulse Oximetry 100 97 99 Oxygen Delivery 07/24/24 00:00 07/24/24 00:26 07/24/24 02:00 Temperature 98.1 F Pulse Rate 76 84 74 Respiratory Rate 12 14 13 Blood Pressure 101/57 L 90/44 L Pulse Oximetry 97 96 96 Oxygen Delivery Room Air 07/24/24 04:00 07/24/24 04:00 07/24/24 06:00 Temperature 98.5 F 98.1 F Pulse Rate 78 73 78 Respiratory Rate 13 13 14 Blood Pressure 118/60 111/77 Pulse Oximetry 95 95 94 Oxygen Delivery Room Air 07/24/24 08:00 07/24/24 10:00 07/24/24 12:00 Temperature 97.9 F 97.6 F Pulse Rate 83 91 82 Respiratory Rate 14 12 14 Blood Pressure 121/71 99/72 L 102/59 L Pulse Oximetry 98 99 99 Oxygen Delivery Exam 2 Narrative: General: Pleasant gentleman in no acute distress HEENT:? Pupils equal reactive, sclera is clear, moist oral mucosa Neck:? Supple, thick neck Respiratory:? Clear to auscultation bilaterally, decreased at bases, no wheezing or rales, adequate air entry Cardiac:? S1-S2 is normal, regular rate and rhythm Abdomen:? Soft, obese, tender to palpation in the right upper quadrant also tender in right lower quadrant, normoactive bowel sound Extremities:? Trace edema, palpable pedal pulses Neuro:? Patient is awake, alert, oriented, nonfocal. Able to answer questions appropriately and follows simple commands in all extremities Skin:? No skin issues Psych:? Normal mentation and affect Results Labs 07/24/24 08:16 07/24/24 02:17 Labs: Short CBC 07/23/24 07/24/24 07/24/24 Range/Units 18:45 02:17 08:16 WBC 10.8 H 7.8 (4.5-10.0) K/mm3 Hgb 9.0 L 9.6 L 9.2 L (14.0-18.0) g/dL Hct 27.4 L 28.4 L 27.8 L (42.0-52.0) % Plt Count 269 252 (150-375) k/mm3 BMP 07/23/24 07/24/24 18:45 02:17 Sodium 134 L 135 L Potassium 3.6 3.8 Chloride 99 100 Carbon Dioxide 24 28 BUN 49 H D 53 H Creatinine 1.66 H 1.37 H Glucose 201 H 141 H Calcium 8.4 8.4 Cardiac Enzymes 07/23/24 Range/Units 18:45 Troponin I < 0.012 (0.000-0.034) ng/mL Liver Function 07/23/24 Range/Units 18:45 Total Bilirubin 1.5 H (0.2-1.3) mg/dL AST 56 (17-59) U/L ALT 79 H (6-50) U/L Alkaline Phosphatase 181 H (38-126) U/L Albumin 3.2 L (3.5-5.1) g/dL Quality VTE Prophylaxis VTE prophylaxis: mechanical ordered Hospitalist MIPS Advance Care Plan I have confirmed that the patient's Advanced Care Plan is present, code status is documented, or surrogate decision maker is listed in patient medical record.: Yes Medication Reconciliation I have utilized all available resources to obtain, update and review the patients current medications (includes all prescriptions, OTC, herbals, cannabis, and nutritional supplements).: Yes
[2024-07-24] MEDS: PHYTONADIONE ADULT INJ 10 MG in DEXTROSE 5% IN WATER 50 ML 68 MG IVPB (13:37)
[2024-07-24] MEDS: SODIUM CHLORIDE 0.9% IV 250 ML 30 ML IV CONT (13:37)
--- NOTE | 2024-07-24 13:52 | PM.CNGS ---
Assessment and Plan Assessment and plan (1) Nausea and vomiting: Qualifiers: Vomiting type: unspecified Qualified Code(s): R11.2 - Nausea with vomiting, unspecified Code(s): R11.2 - Nausea with vomiting, unspecified Status: Acute Assessment and Plan: Patient returned to the ER yesterday with cold sweats and profuse nausea and vomiting, unable to keep anything down. Soon after he reached the medical-surgical floor yesterday, he had a syncopal episode while getting up to go to the bathroom. He was noted to have a low blood pressure of 65 systolic. He was transferred to the ICU where he is hemodynamically stable but afraid to eat due to the nausea and vomiting. Wants to have his gallbladder removed. (2) Cholelithiasis with chronic cholecystitis: Qualifiers: Cholelithiasis location: gallbladder and bile duct Biliary obstruction: without biliary obstruction Qualified Code(s): K80.64 - Calculus of gallbladder and bile duct with chronic cholecystitis without obstruction Code(s): K80.10 - Calculus of gallbladder with chronic cholecystitis without obstruction Status: Acute Assessment and Plan: Source of common bile duct stones and probably still has chronic cholecystitis, possibly sepsis. Plan to proceed tomorrow morning with laparoscopic cholecystectomy. I discussed the case with Dr. Musa, demurrage worker. I also discussed the case with Dr. Ward, our anesthesiologist. I discussed the procedure, risks, alternatives, benefits with the patient. The surgery is higher risk. Is risks of bleeding, vascular or bile duct injury are higher as he has stage III hepatic fibrosis. Literature also suggest that cholecystectomy in patients with hepatic fibrosis can make the fibrosis worse or even convert to cirrhosis. None the less, this patient absolutely needs cholecystectomy due to his common duct stones, cholangitis sepsis and possible persistent sepsis. Despite these risks, he very much wants to proceed. (3) Sepsis: Qualifiers: Sepsis type: sepsis due to unspecified organism Sepsis acute organ dysfunction status: without acute organ dysfunction Qualified Code(s): A41.9 - Sepsis, unspecified organism Code(s): A41.9 - Sepsis, unspecified organism Status: Acute Assessment and Plan: Due to cholangitis with bacteremia on 1st admission. May still be present due to cholecystitis. Has marked left shift on automated differential. If so, normal white blood cell count suggests neutropenia developing. (4) Acute cholangitis due to calculus of bile duct with obstruction: Code(s): K80.33 - Calculus of bile duct with acute cholangitis with obstruction Status: Acute Assessment and Plan: ERCP with stone extraction distal common bile duct was performed 07/20/2024. Patient went home on Levaquin and metronidazole the following day. (5) Gram-positive bacteremia: Code(s): R78.81 - Bacteremia Status: Acute Assessment and Plan: Blood cultures from 07/16/2024 were both positive for: Streptococcus gallolyticus ssp pasteurianus , from aerobic and anaerobic bottles (6) S/P ablation of atrial fibrillation: Code(s): Z98.890 - Other specified postprocedural states; Z86.79 - Personal history of other diseases of the circulatory system Status: Chronic (7) Chronic anticoagulation: Code(s): Z79.01 - long term (current) use of anticoagulants Status: Chronic Assessment and Plan: Xarelto has been held for about 1 week. (8) Stage 3 hepatic fibrosis: Code(s): K74.02 - Hepatic fibrosis, advanced fibrosis Status: Chronic Assessment and Plan: Alcohol induced. 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 Has cut back significantly on his alcohol intake. History of Present Illness Consult details Consult date: 07/24/24 Reason for consult: gallstones Requesting physician: Beatriz Martinez, YUE Narrative: Patient is a 73-year-old man with a long history of heavy alcohol use. He is known to have stage III liver fibrosis and sees a liver specialist at [facility]. He has decreased his alcohol intake to just a couple of beers on the weekend. Patient's present illness started over a month ago when he had stabbing umbilical pain mostly in June and early July. He also began experiencing nausea and vomiting. Patient reports he started on Ozempic on July 10 but the symptoms were going on before he started Ozempic. Also he notes that the symptoms are no worse after he started Ozempic. He came to be admitted on 07/16 with ?weeks of abdominal discomfort and chills. He also had nausea and vomiting to the point that he could not keep anything down. He was noted on lab work to have a total bilirubin of [address] scan to have gallstones and a dilated common bile duct. Blood cultures from 07/16/2024 came back positive for streptococci. He was treated with IV antibiotics for what now appears to be cholangitis bacteremia and sepsis. He underwent an MRCP which confirmed common bile duct stones. Patient underwent ERCP with sphincterotomy and distal common bile duct stone extraction on 07/20/2024. He was then discharged from the hospital the following day, July 21, 2024 on Levaquin and Flagyl. He is scheduled for cholecystectomy on July [address] Rodas. Unfortunately, the patient was home only about 24 hours before he started feeling weak, having cold sweats, and profuse nausea and vomiting to where he could not keep anything down. He came back to the emergency room. Repeat gallbladder imaging showed a normal appearing gallbladder containing gallstones. Patient was discharged on Levaquin and metronidazole. He dutifully took his antibiotics as prescribed. He repeatedly denied drinking any alcohol after discharge. He had a cardiac ablation for atrial fibrillation in May of this year. He was taking Xarelto but this was stopped for his ERCP and was not restarted. On the day of admission, yesterday, soon after he arrived on the [facility] floor, he got up to go to the bathroom and passed out. He was unconscious and his blood pressure was quite low with a systolic pressure of 65. A rapid response was called but the patient did arouse and improved fairly quickly. He was transferred to the ICU. He still feels very weak and does not feel that he can eat anything as he does not want to take any chances on getting that nausea and vomiting again. His white blood cell count has been normal but the automated differential suggests a significant preponderance of bands or a left shift. Liver enzymes have been improving in line with the improvement noted on his previous admission. He currently denies any abdominal pain. He very much wants to proceed with removal of his gallbladder. Review of Systems Review of Systems: All systems reviewed & are unremarkable except as noted in HPI and below (See HPI) [facility] Past Medical History Medical History Cholangitis 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 Sepsis Gram-positive bacteremia Cholelithiasis SIRS (systemic inflammatory response syndrome) HONORIO (obstructive sleep apnea) Balanitis Gout Hyperlipidemia HTN (hypertension) Surgical History Surgical History H/O angioplasty Family History Family History Sibling Diabetes mellitus Family history of mental disorder, Onset Age: 63 Family history of cardiovascular disease, Onset Age: 63 Acute myocardial infarction Family history of malignant neoplasm Mother Family history of mental disorder, Onset Age: 56 Other Family history of seizure disorder Social History Social History Smoking packs per day: 2 Smoking cigarettes per day: 40.0 Years smoked: 15 Smoking pack-years: 30.00 Smoking status: Former smoker Alcohol intake: current Drinks per week: 56 Alcohol use details: DRINKING LESS CURRENTLY Substance use type: does not use Do You Feel Safe in your Home?: Yes Lack of Transportation: No Lack of Food: Never True Current Housing: I Have Housing Concerned About Future Housing: No Difficulty Paying Gas/Electric Bills: No Difficulty Paying for Meds: No Currently Unemployed: No Education: Associate Degree Difficulty w/ Childcare or Family Care: No Living arrangements: with family Additional living arrangements comments: Spiritual care concerns: No Meds Home Medications and Allergies Home Medications ?Medication ?Instructions ?Recorded ?Confirmed ?Type amlodipine 5 mg tablet 5 mg PO DAILY 10/27/19 07/23/24 History bupropion HCl 300 mg 24 hr tablet, 300 mg PO QAM 10/27/19 07/23/24 History extended release clonazepam 1 mg tablet 1 mg PO DAILY PRN anxiety 10/27/19 07/23/24 History buspirone 15 mg tablet 15 mg PO BID 07/15/24 07/23/24 History evolocumab 140 mg/mL subcutaneous 140 mg subcut .every other week 07/15/24 07/23/24 History pen injector (Repatha SureClick) furosemide 20 mg tablet 20 mg PO DAILY 07/15/24 07/23/24 History pregabalin 200 mg capsule 200 mg PO Q12H 07/15/24 07/23/24 History semaglutide 0.25 mg or 0.5 mg (2 0.25 mg subcut WEEKLY 07/15/24 07/23/24 History mg/3 mL) subcutaneous pen injector (Ozempic) sildenafil (pulm.hypertension) 20 20 mg PO PRN PRN sexual activity 07/15/24 07/23/24 History mg tablet tadalafil 5 mg tablet 5 mg PO PRN PRN sexual activity 07/15/24 07/23/24 History tamsulosin 0.4 mg capsule 0.4 mg PO DAILY 07/15/24 07/23/24 History atorvastatin 20 mg tablet 20 mg PO DAILY 07/16/24 07/23/24 History carvedilol 3.125 mg tablet 3.125 mg PO BID 07/16/24 07/23/24 History duloxetine 60 mg capsule,delayed 60 mg PO DAILY 07/16/24 07/23/24 History release felodipine 10 mg tablet,extended 10 mg PO DAILY 07/16/24 07/23/24 History release 24 hr fluticasone propionate 50 1 spray intranasal Q12H PRN nasal 07/16/24 07/23/24 History mcg/actuation nasal congestion spray,suspension lisinopril 40 mg tablet 40 mg PO DAILY 07/16/24 07/23/24 History potassium chloride 20 mEq 20 meq PO DAILY 07/16/24 07/23/24 History tablet,extended release (K-Tab) rivaroxaban 20 mg tablet 20 mg PO DAILY 07/16/24 07/23/24 History tizanidine 4 mg capsule 4 mg PO Q6H PRN muscle spasticity 07/16/24 07/23/24 History levofloxacin 750 mg tablet 750 mg PO DAILY #5 tabs 07/21/24 07/23/24 Rx metronidazole 500 mg tablet 500 mg PO Q8HR 6 days #18 tabs 07/21/24 07/23/24 Rx omeprazole 40 mg capsule,delayed 40 mg PO HS 07/22/24 07/23/24 History release Allergies Allergy/AdvReac Type Severity Reaction Status Date / Time citalopram Allergy Unknown Hives Verified 07/22/24 14:38 hydralazine Allergy Unknown Hives Verified 07/22/24 14:38 Penicillins Allergy Unknown hives Verified 07/22/24 14:38 Vital Signs Vital Signs - 24 hr 07/23/24 17:45 07/23/24 18:15 07/23/24 18:20 Temperature Pulse Rate 75 85 Respiratory Rate Blood Pressure 63/47 L 88/40 L Pulse Oximetry 100 99 Oxygen Delivery Room Air 07/23/24 18:45 07/23/24 19:00 07/23/24 19:00 Temperature Pulse Rate 80 74 74 Respiratory Rate 16 Blood Pressure 84/46 L 78/41 L 89/49 L Pulse Oximetry 100 97 94 Oxygen Delivery 07/23/24 19:15 07/23/24 20:00 07/23/24 20:00 Temperature 36.7 C Pulse Rate 79 79 78 Respiratory Rate 22 H 10 L 12 Blood Pressure 88/45 L 89/50 L Pulse Oximetry 100 100 100 Oxygen Delivery Room Air Room Air 07/23/24 20:15 07/23/24 22:00 07/23/24 22:11 Temperature 37.1 C 37.1 C Pulse Rate 79 72 84 Respiratory Rate 8 L 10 L 12 Blood Pressure 103/61 89/50 L 110/53 L Pulse Oximetry 100 98 100 Oxygen Delivery 07/23/24 22:28 07/23/24 23:28 07/24/24 00:00 Temperature 36.6 C 36.8 C 36.8 C Pulse Rate 81 76 74 Respiratory Rate 12 12 12 Blood Pressure 103/61 96/63 L 101/57 L Pulse Oximetry 100 97 99 Oxygen Delivery 07/24/24 00:00 07/24/24 00:26 07/24/24 02:00 Temperature 36.7 C Pulse Rate 76 84 74 Respiratory Rate 12 14 13 Blood Pressure 101/57 L 90/44 L Pulse Oximetry 97 96 96 Oxygen Delivery Room Air 07/24/24 04:00 07/24/24 04:00 07/24/24 06:00 Temperature 36.9 C 36.7 C Pulse Rate 78 73 78 Respiratory Rate 13 13 14 Blood Pressure 118/60 111/77 Pulse Oximetry 95 95 94 Oxygen Delivery Room Air 07/24/24 08:00 07/24/24 08:00 07/24/24 10:00 Temperature 36.6 C Pulse Rate 83 79 91 Respiratory Rate 14 12 Blood Pressure 121/71 99/72 L Pulse Oximetry 98 99 Oxygen Delivery 07/24/24 10:00 07/24/24 12:00 07/24/24 13:15 Temperature 36.4 C Pulse Rate 83 82 82 Respiratory Rate 14 Blood Pressure 102/59 L Pulse Oximetry 99 Oxygen Delivery 07/24/24 13:32 07/24/24 13:49 Temperature 36.6 C 36.6 C Pulse Rate 83 79 Respiratory Rate 16 14 Blood Pressure 100/55 L 115/54 L Pulse Oximetry 99 96 Oxygen Delivery Exam Const: General: comfortable, no acute distress, alert, awake and anxious Nutritional Appearance: obese Orientation/consciousness: patient oriented x3 HENMT: Head: normocephalic and atraumatic Mouth: Yes Normal oral and palatal mucosa present Eyes: General: appearance normal, both eyes and all related structures (Wears eyeglasses) Conjunctivae: conjunctivae normal Pupils: Equal, round and reactive pupils present EOM: EOMs intact bilaterally Neck: Neck: normal visual inspection, no lymphadenopathy and nontender Resp: Effort & Inspection: normal respiratory effort Auscultation: clear to auscultation bilaterally Cardio: Rate: regular rate Rhythm: regular rhythm Heart sounds: no gallops, no murmurs and no rubs GI: Inspection: non-distended and obesity GI Palp: Yes Soft to palpation, No Tenderness to palpation present (GI), Yes Hepatomegaly present, No Splenomegaly present and No Palpable mass present Skin: Lesions: no lesions Rashes: no rashes Neuro: General: no focal motor deficits and CN's II-XI intact bilaterally Cranial nerves: Yes Equal, round and reactive pupils present, Yes Bilaterally intact EOM present, Yes facial symmetry and Yes Midline tongue present Speech: normal speech Motor exam (neuro): 5/5 motor strength present throughout and Motor abnormalities not present Extrem: General: no clubbing, cyanosis or edema and edema Psych: Affect: normal affect Thought process: Normal thought process present Insight: Good insight present (Psych) Results Labs 07/24/24 08:16 07/24/24 02:17 Labs: Abnormal lab results 07/23/24 07/23/24 07/24/24 Range/Units 18:17 18:45 02:17 WBC 10.8 H (4.5-10.0) K/mm3 RBC 2.94 L 3.14 L (4.6-6.20) M/mm3 Hgb 9.0 L 9.6 L (14.0-18.0) g/dL Hct 27.4 L 28.4 L (42.0-52.0) % RDW 15.8 H 15.2 H (11.5-14.5) % MPV 10.5 H 10.6 H (7.4-10.4) fl Immature Gran % (Auto) 7.3 H (0-0.5) % Beckham % (Auto) 10.5 H (2.6-8.5) % Beckham # (Auto) 0.8 H (0.1-0.6) K/mm3 Abs Immat Gran (auto) 0.57 H (0.00-0.031) K/mm3 PT 21.7 H (11.1-14.7) Seconds Sodium 134 L 135 L (137-145) mmol/L BUN 49 H D 53 H (9-20) mg/dL Creatinine 1.66 H 1.37 H (0.7-1.3) mg/dL Estimated GFR 41 L 51 L (59 - ) Glucose 201 H 141 H (65-110) mg/dL POC Capillary Glucose 199 H (65-105) mg/dl Lactic Acid 2.3 H (0.7-2.0) mmol/L Total Bilirubin 1.5 H (0.2-1.3) mg/dL ALT 79 H (6-50) U/L Alkaline Phosphatase 181 H (38-126) U/L Total Protein 6.0 L (6.3-8.2) g/dL Albumin 3.2 L (3.5-5.1) g/dL Crossmatch See Detail 07/24/24 Range/Units 08:16 WBC (4.5-10.0) K/mm3 RBC (4.6-6.20) M/mm3 Hgb 9.2 L (14.0-18.0) g/dL Hct 27.8 L (42.0-52.0) % RDW (11.5-14.5) % MPV (7.4-10.4) fl Immature Gran % (Auto) (0-0.5) % Beckham % (Auto) (2.6-8.5) % Beckham # (Auto) (0.1-0.6) K/mm3 Abs Immat Gran (auto) (0.00-0.031) K/mm3 PT (11.1-14.7) Seconds Sodium (137-145) mmol/L BUN (9-20) mg/dL Creatinine (0.7-1.3) mg/dL Estimated GFR (59 - ) Glucose (65-110) mg/dL POC Capillary Glucose (65-105) mg/dl Lactic Acid (0.7-2.0) mmol/L Total Bilirubin (0.2-1.3) mg/dL ALT (6-50) U/L Alkaline Phosphatase (38-126) U/L Total Protein (6.3-8.2) g/dL Albumin (3.5-5.1) g/dL Crossmatch Diabetes panel 07/23/24 07/24/24 Range/Units 18:45 02:17 Sodium 134 L 135 L (137-145) mmol/L Potassium 3.6 3.8 (3.4-5.0) mmol/L Chloride 99 100 (98-107) mmol/L Carbon Dioxide 24 28 (22-30) mmol/L BUN 49 H D 53 H (9-20) mg/dL Creatinine 1.66 H 1.37 H (0.7-1.3) mg/dL Glucose 201 H 141 H (65-110) mg/dL Calcium 8.4 8.4 (8.4-10.2) mg/dL AST 56 (17-59) U/L ALT 79 H (6-50) U/L Alkaline Phosphatase 181 H (38-126) U/L Total Protein 6.0 L (6.3-8.2) g/dL Albumin 3.2 L (3.5-5.1) g/dL Calcium panel 07/23/24 07/24/24 Range/Units 18:45 02:17 Calcium 8.4 8.4 (8.4-10.2) mg/dL Albumin 3.2 L (3.5-5.1) g/dL Pituitary panel 07/23/24 07/24/24 Range/Units 18:45 02:17 Sodium 134 L 135 L (137-145) mmol/L Potassium 3.6 3.8 (3.4-5.0) mmol/L Chloride 99 100 (98-107) mmol/L Carbon Dioxide 24 28 (22-30) mmol/L BUN 49 H D 53 H (9-20) mg/dL Creatinine 1.66 H 1.37 H (0.7-1.3) mg/dL Glucose 201 H 141 H (65-110) mg/dL Calcium 8.4 8.4 (8.4-10.2) mg/dL Adrenal panel 07/23/24 07/24/24 Range/Units 18:45 02:17 Sodium 134 L 135 L (137-145) mmol/L Potassium 3.6 3.8 (3.4-5.0) mmol/L Chloride 99 100 (98-107) mmol/L Carbon Dioxide 24 28 (22-30) mmol/L BUN 49 H D 53 H (9-20) mg/dL Creatinine 1.66 H 1.37 H (0.7-1.3) mg/dL Glucose 201 H 141 H (65-110) mg/dL Calcium 8.4 8.4 (8.4-10.2) mg/dL Total Bilirubin 1.5 H (0.2-1.3) mg/dL AST 56 (17-59) U/L ALT 79 H (6-50) U/L Alkaline Phosphatase 181 H (38-126) U/L Total Protein 6.0 L (6.3-8.2) g/dL Albumin 3.2 L (3.5-5.1) g/dL All other labs normal.
--- NOTE | 2024-07-24 14:06 | P.CONGI_ITS ---
Assessment and Plan Assessment and plan (1) Melena: Code(s): K92.1 - Melena Status: Acute Assessment and Plan: The episode of transient melena and the decrease in hematocrit are likely attributable to self-limited bleeding from the sphincterotomy performed during common bile duct stone removal. As the patient is now hemodynamically stable and shows no signs of active bleeding, the planned cholecystectomy can proceed safely. GI Consult Note Consult date/time: 07/24/24 14:06 Reason for consult: Syncopal episode- slight decrease in hemoglobin level HPI: Romario Bonds is a 73 year old male who underwent an ERCP with stone extraction on 07/20/2024, being sent home on a stable condition. Approximately 24 hours later, the patient noticed an episode of black tarry stool. shortly after, he had a near syncopal episode and was brought to the hospital. He was found to have a Hemoglobin of 9.2, being the previous 11.9 on 07/21/2024. he was fluid resuscitated and transferred to the ICU. He is currently hemodynamically stable and has not had a single bowel movement after admission. 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 Sepsis Gram-positive bacteremia Cholelithiasis SIRS (systemic inflammatory response syndrome) HONORIO (obstructive sleep apnea) Balanitis Gout Hyperlipidemia HTN (hypertension) Surgical History Surgical History H/O angioplasty Family History Family History Sibling Diabetes mellitus Family history of mental disorder, Onset Age: 63 Family history of cardiovascular disease, Onset Age: 63 Acute myocardial infarction Family history of malignant neoplasm Mother Family history of mental disorder, Onset Age: 56 Other Family history of seizure disorder Social History Social History Smoking packs per day: 2 Smoking cigarettes per day: 40.0 Years smoked: 15 Smoking pack-years: 30.00 Smoking status: Former smoker Alcohol intake: current Drinks per week: 56 Alcohol use details: DRINKING LESS CURRENTLY Substance use type: does not use Do You Feel Safe in your Home?: Yes Lack of Transportation: No Lack of Food: Never True Current Housing: I Have Housing Concerned About Future Housing: No Difficulty Paying Gas/Electric Bills: No Difficulty Paying for Meds: No Currently Unemployed: No Education: Associate Degree Difficulty w/ Childcare or Family Care: No Living arrangements: with family Additional living arrangements comments: Spiritual care concerns: No Meds Home Medications and Allergies Home Medications ?Medication ?Instructions ?Recorded ?Confirmed ?Type amlodipine 5 mg tablet 5 mg PO DAILY 10/27/19 07/23/24 History bupropion HCl 300 mg 24 hr tablet, 300 mg PO QAM 10/27/19 07/23/24 History extended release clonazepam 1 mg tablet 1 mg PO DAILY PRN anxiety 10/27/19 07/23/24 History buspirone 15 mg tablet 15 mg PO BID 07/15/24 07/23/24 History evolocumab 140 mg/mL subcutaneous 140 mg subcut .every other week 07/15/24 07/23/24 History pen injector (Ramandeep Springer) furosemide 20 mg tablet 20 mg PO DAILY 07/15/24 07/23/24 History pregabalin 200 mg capsule 200 mg PO Q12H 07/15/24 07/23/24 History semaglutide 0.25 mg or 0.5 mg (2 0.25 mg subcut WEEKLY 07/15/24 07/23/24 History mg/3 mL) subcutaneous pen injector (Ozempic) sildenafil (pulm.hypertension) 20 20 mg PO PRN PRN sexual activity 07/15/24 07/23/24 History mg tablet tadalafil 5 mg tablet 5 mg PO PRN PRN sexual activity 07/15/24 07/23/24 History tamsulosin 0.4 mg capsule 0.4 mg PO DAILY 07/15/24 07/23/24 History atorvastatin 20 mg tablet 20 mg PO DAILY 07/16/24 07/23/24 History carvedilol 3.125 mg tablet 3.125 mg PO BID 07/16/24 07/23/24 History duloxetine 60 mg capsule,delayed 60 mg PO DAILY 07/16/24 07/23/24 History release felodipine 10 mg tablet,extended 10 mg PO DAILY 07/16/24 07/23/24 History release 24 hr fluticasone propionate 50 1 spray intranasal Q12H PRN nasal 07/16/24 07/23/24 History mcg/actuation nasal congestion spray,suspension lisinopril 40 mg tablet 40 mg PO DAILY 07/16/24 07/23/24 History potassium chloride 20 mEq 20 meq PO DAILY 07/16/24 07/23/24 History tablet,extended release (K-Tab) rivaroxaban 20 mg tablet 20 mg PO DAILY 07/16/24 07/23/24 History tizanidine 4 mg capsule 4 mg PO Q6H PRN muscle spasticity 07/16/24 07/23/24 History levofloxacin 750 mg tablet 750 mg PO DAILY #5 tabs 07/21/24 07/23/24 Rx metronidazole 500 mg tablet 500 mg PO Q8HR 6 days #18 tabs 07/21/24 07/23/24 Rx omeprazole 40 mg capsule,delayed 40 mg PO HS 07/22/24 07/23/24 History release Allergies Allergy/AdvReac Type Severity Reaction Status Date / Time citalopram Allergy Unknown Hives Verified 07/22/24 14:38 hydralazine Allergy Unknown Hives Verified 07/22/24 14:38 Penicillins Allergy Unknown hives Verified 07/22/24 14:38 Vital Signs Vital Signs - 24 hr 07/23/24 17:45 07/23/24 18:15 07/23/24 18:20 Temperature Pulse Rate 75 85 Respiratory Rate Blood Pressure 63/47 L 88/40 L Pulse Oximetry 100 99 Oxygen Delivery Room Air 07/23/24 18:45 07/23/24 19:00 07/23/24 19:00 Temperature Pulse Rate 80 74 74 Respiratory Rate 16 Blood Pressure 84/46 L 78/41 L 89/49 L Pulse Oximetry 100 97 94 Oxygen Delivery 07/23/24 19:15 07/23/24 20:00 07/23/24 20:00 Temperature 98.1 F Pulse Rate 79 79 78 Respiratory Rate 22 H 10 L 12 Blood Pressure 88/45 L 89/50 L Pulse Oximetry 100 100 100 Oxygen Delivery Room Air Room Air 07/23/24 20:15 07/23/24 22:00 07/23/24 22:11 Temperature 98.7 F 98.7 F Pulse Rate 79 72 84 Respiratory Rate 8 L 10 L 12 Blood Pressure 103/61 89/50 L 110/53 L Pulse Oximetry 100 98 100 Oxygen Delivery 07/23/24 22:28 07/23/24 23:28 07/24/24 00:00 Temperature 97.8 F 98.3 F 98.3 F Pulse Rate 81 76 74 Respiratory Rate 12 12 12 Blood Pressure 103/61 96/63 L 101/57 L Pulse Oximetry 100 97 99 Oxygen Delivery 07/24/24 00:00 07/24/24 00:26 07/24/24 02:00 Temperature 98.1 F Pulse Rate 76 84 74 Respiratory Rate 12 14 13 Blood Pressure 101/57 L 90/44 L Pulse Oximetry 97 96 96 Oxygen Delivery Room Air 07/24/24 04:00 07/24/24 04:00 07/24/24 06:00 Temperature 98.5 F 98.1 F Pulse Rate 78 73 78 Respiratory Rate 13 13 14 Blood Pressure 118/60 111/77 Pulse Oximetry 95 95 94 Oxygen Delivery Room Air 07/24/24 08:00 07/24/24 08:00 07/24/24 10:00 Temperature 97.9 F Pulse Rate 83 79 91 Respiratory Rate 14 12 Blood Pressure 121/71 99/72 L Pulse Oximetry 98 99 Oxygen Delivery 07/24/24 10:00 07/24/24 12:00 07/24/24 13:15 Temperature 97.6 F Pulse Rate 83 82 82 Respiratory Rate 14 Blood Pressure 102/59 L Pulse Oximetry 99 Oxygen Delivery 07/24/24 13:32 07/24/24 13:49 Temperature 98 F 98 F Pulse Rate 83 79 Respiratory Rate 16 14 Blood Pressure 100/55 L 115/54 L Pulse Oximetry 99 96 Oxygen Delivery Exam 2 Const: General: cooperative and healthy appearing Resp: Effort & Inspection: normal respiratory effort and able to speak in complete sentences Auscultation: clear to auscultation bilaterally Cardio: Rate: regular rate Rhythm: regular rhythm GI: Inspection: normal to inspection GI Palp: No No hepatosplenomegaly present Auscultation: normal bowel sounds Other: Solid stools in the rectal vault. Light brown color. Skin: General skin exam: normal color Psych: Appearance: grossly normal Mental Status: mental status grossly normal Results Labs 07/24/24 08:16 07/24/24 02:17 Labs: Short CBC 07/23/24 07/24/24 07/24/24 Range/Units 18:45 02:17 08:16 WBC 10.8 H 7.8 (4.5-10.0) K/mm3 Hgb 9.0 L 9.6 L 9.2 L (14.0-18.0) g/dL Hct 27.4 L 28.4 L 27.8 L (42.0-52.0) % Plt Count 269 252 (150-375) k/mm3 BMP 07/23/24 07/24/24 18:45 02:17 Sodium 134 L 135 L Potassium 3.6 3.8 Chloride 99 100 Carbon Dioxide 24 28 BUN 49 H D 53 H Creatinine 1.66 H 1.37 H Glucose 201 H 141 H Calcium 8.4 8.4 Cardiac Enzymes 07/23/24 Range/Units 18:45 Troponin I < 0.012 (0.000-0.034) ng/mL Liver Function 07/23/24 Range/Units 18:45 Total Bilirubin 1.5 H (0.2-1.3) mg/dL AST 56 (17-59) U/L ALT 79 H (6-50) U/L Alkaline Phosphatase 181 H (38-126) U/L Albumin 3.2 L (3.5-5.1) g/dL
[2024-07-24 19:40] LABS: Add Urine Microscopic? NO; Appearance Urine Clear (Clear); Bilirubin Urine Negative (Negative); Blood Urine Negative (Negative); Color Urine Yellow (Yellow); Glucose Urine UA Negative (Negative); Ketones Urine Negative (Negative); Leukocyte Esterase Ur Negative LEU/UL (Negative); Nitrate Urine Negative (Negative); Protein Urine Negative (Negative); Specific Grav Ur 1.028 (1.001-1.035); Urobilinogen Urine 0.2 mg/dL (<2.0); pH Urine 5.5 (5.0-9.0)
[2024-07-24 19:52] LABS: MRSA (PCR) NOT DETECTED (NOT DETECTE)
--- NOTE | 2024-07-24 20:17 | P.PNAN_ITS ---
Anes - Eval Pre Procedure Procedure: Laparoscopic Cholecystectomy Date/Time: 07/24/24 20:17 Surgeon: Tahir Pre Op Diagnosis: choleystitis Patient Data Age: 73 Gender: M Height: 1.91 m Weight: 130.4 kg Last Vital Signs Temp 97.9 F 07/24/24 16:00 Pulse 75 07/24/24 18:00 Resp 13 07/24/24 18:00 BP 141/66 H 07/24/24 18:00 Pulse Ox 100 07/24/24 18:00 O2 Del Method Room Air 07/24/24 04:00 Allergies Allergy/AdvReac Type Severity Reaction Status Date / Time citalopram Allergy Unknown Hives Verified 07/22/24 14:38 hydralazine Allergy Unknown Hives Verified 07/22/24 14:38 Penicillins Allergy Unknown hives Verified 07/22/24 14:38 Home Medications ?Medication ?Instructions ?Recorded ?Confirmed ?Type amlodipine 5 mg tablet 5 mg PO DAILY 10/27/19 07/23/24 History bupropion HCl 300 mg 24 hr tablet, 300 mg PO QAM 10/27/19 07/23/24 History extended release clonazepam 1 mg tablet 1 mg PO DAILY PRN anxiety 10/27/19 07/23/24 History buspirone 15 mg tablet 15 mg PO BID 07/15/24 07/23/24 History evolocumab 140 mg/mL subcutaneous 140 mg subcut .every other week 07/15/24 07/23/24 History pen injector (Repatha SureClick) furosemide 20 mg tablet 20 mg PO DAILY 07/15/24 07/23/24 History pregabalin 200 mg capsule 200 mg PO Q12H 07/15/24 07/23/24 History semaglutide 0.25 mg or 0.5 mg (2 0.25 mg subcut WEEKLY 07/15/24 07/23/24 History mg/3 mL) subcutaneous pen injector (Ozempic) sildenafil (pulm.hypertension) 20 20 mg PO PRN PRN sexual activity 07/15/24 07/23/24 History mg tablet tadalafil 5 mg tablet 5 mg PO PRN PRN sexual activity 07/15/24 07/23/24 History tamsulosin 0.4 mg capsule 0.4 mg PO DAILY 07/15/24 07/23/24 History atorvastatin 20 mg tablet 20 mg PO DAILY 07/16/24 07/23/24 History carvedilol 3.125 mg tablet 3.125 mg PO BID 07/16/24 07/23/24 History duloxetine 60 mg capsule,delayed 60 mg PO DAILY 07/16/24 07/23/24 History release felodipine 10 mg tablet,extended 10 mg PO DAILY 07/16/24 07/23/24 History release 24 hr fluticasone propionate 50 1 spray intranasal Q12H PRN nasal 07/16/24 07/23/24 History mcg/actuation nasal congestion spray,suspension lisinopril 40 mg tablet 40 mg PO DAILY 07/16/24 07/23/24 History potassium chloride 20 mEq 20 meq PO DAILY 07/16/24 07/23/24 History tablet,extended release (K-Tab) rivaroxaban 20 mg tablet 20 mg PO DAILY 07/16/24 07/23/24 History tizanidine 4 mg capsule 4 mg PO Q6H PRN muscle spasticity 07/16/24 07/23/24 History levofloxacin 750 mg tablet 750 mg PO DAILY #5 tabs 07/21/24 07/23/24 Rx metronidazole 500 mg tablet 500 mg PO Q8HR 6 days #18 tabs 07/21/24 07/23/24 Rx omeprazole 40 mg capsule,delayed 40 mg PO HS 07/22/24 07/23/24 History release Laboratory Tests 07/23/24 07/23/24 07/23/24 18:17 18:45 21:10 WBC RBC Hgb Hct MCV MCH MCHC RDW Plt Count MPV Immature Gran % (Auto) Neut % (Auto) Lymph % (Auto) [place] % (Auto) Eos % (Auto) Baso % (Auto) Lymph # (Auto) [place] # (Auto) Eos # (Auto) Baso # (Auto) Abs Immat Gran (auto) Absolute Neuts (auto) Absolute Nucleated RBC Nucleated RBC % Sodium Potassium Chloride Carbon Dioxide Anion Gap BUN Creatinine Estim Creat Clear Calc Estimated GFR Glucose POC Capillary Glucose 199 H mg/dl (65-105) Lactic Acid 1.2 mmol/L (0.7-2.0) Calcium Urine Color Urine Appearance Urine pH Ur Specific [place] Urine Protein Urine Glucose (UA) Urine Ketones Ur Blood (Man) Urine Nitrate Urine Bilirubin Urine Urobilinogen Leukocyte Esterase Rfl Nasal MRSA (PCR) Blood Type O Negative Antibody Screen Negative Crossmatch See Detail 07/24/24 07/24/24 07/24/24 02:17 08:16 18:00 WBC 7.8 K/mm3 (4.5-10.0) RBC 3.14 L M/mm3 (4.6-6.20) Hgb 9.6 L g/dL 9.2 L g/dL (14.0-18.0) (14.0-18.0) Hct 28.4 L % 27.8 L % (42.0-52.0) (42.0-52.0) MCV 90.4 fl (80-100) MCH 30.6 pg (26-34) MCHC 33.8 g/dl (32-36) RDW 15.2 H % (11.5-14.5) Plt Count 252 k/mm3 (150-375) MPV 10.6 H fl (7.4-10.4) Immature Gran % (Auto) 7.3 H % (0-0.5) Neut % (Auto) 49.9 % (45.5-73.1) Lymph % (Auto) 30.3 % (18.3-44.2) [place] % (Auto) 10.5 H % (2.6-8.5) Eos % (Auto) 1.2 % (0-4.4) Baso % (Auto) 0.8 % (0.2-1.2) Lymph # (Auto) 2.36 K/mm3 (0.9-3.2) [place] # (Auto) 0.8 H K/mm3 (0.1-0.6) Eos # (Auto) 0.1 K/mm3 (0-0.3) Baso # (Auto) 0.1 K/mm3 (0.0-0.1) Abs Immat Gran (auto) 0.57 H K/mm3 (0.00-0.031) Absolute Neuts (auto) 3.9 K/mm3 (1.3-6.7) Absolute Nucleated RBC 0.000 K/mm3 (0.0-0.012) Nucleated RBC % 0.0 % (0.0-0.2) Sodium 135 L mmol/L (137-145) Potassium 3.8 mmol/L (3.4-5.0) Chloride 100 mmol/L (98-107) Carbon Dioxide 28 mmol/L (22-30) Anion Gap 7 mmol/L (4-12) BUN 53 H mg/dL (9-20) Creatinine 1.37 H mg/dL (0.7-1.3) Estim Creat Clear Calc 62 ml/min Estimated GFR 51 L (59 - ) Glucose 141 H mg/dL (65-110) POC Capillary Glucose Lactic Acid Calcium 8.4 mg/dL (8.4-10.2) Urine Color Yellow (Yellow) Urine Appearance Clear (Clear) Urine pH 5.5 (5.0-9.0) Ur Specific [place] 1.028 (1.001-1.035) Urine Protein Negative mg/dL (Negative) Urine Glucose (UA) Negative mg/dL (Negative) Urine Ketones Negative mg/dL (Negative) Ur Blood (Man) Negative (Negative) Urine Nitrate Negative (Negative) Urine Bilirubin Negative (Negative) Urine Urobilinogen 0.2 mg/dL (<2.0) Leukocyte Esterase Rfl Negative [place]/UL (Negative) Nasal MRSA (PCR) Not detected (NOT DETECTE) Blood Type Antibody Screen Crossmatch ECG: est Date: 2024-07-23 19:18:57 Measurements Intervals [place] Rate: 71 P: 20 NM: 252 QRS: -35 QRSD: 107 T: 66 QT: 431 QTc: 469 Interpretive Statements SINUS RHYTHM WITH FIRST DEGREE AV BLOCK MARKED LEFT AXIS DEVIATION [QRS AXIS < -30] NONSPECIFIC T-WAVE ABNORMALITY ABNORMAL ECG Compared to ECG 07/23/2024 10:51:02 Left-axis deviation now present T-wave abnormality now present Left anterior fascicular block no longer present Electronically Signed On 07-24-2024 08:04:46 CDT by Brooks Givens M.D. 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 Sepsis Gram-positive bacteremia Cholelithiasis SIRS (systemic inflammatory response syndrome) HONORIO (obstructive sleep apnea) Balanitis Gout Hyperlipidemia HTN (hypertension) Surgical History Surgical History H/O angioplasty Family History Family History Sibling Diabetes mellitus Family history of mental disorder, Onset Age: 63 Family history of cardiovascular disease, Onset Age: 63 Acute myocardial infarction Family history of malignant neoplasm Mother Family history of mental disorder, Onset Age: 56 Other Family history of seizure disorder Social History Social History Smoking packs per day: 2 Smoking cigarettes per day: 40.0 Years smoked: 15 Smoking pack-years: 30.00 Smoking status: Former smoker Alcohol intake: current Drinks per week: 56 Alcohol use details: DRINKING LESS CURRENTLY Substance use type: does not use Do You Feel Safe in your Home?: Yes Lack of Transportation: No Lack of Food: Never True Current Housing: I Have Housing Concerned About Future Housing: No Difficulty Paying Gas/Electric Bills: No Difficulty Paying for Meds: No Currently Unemployed: No Education: Associate Degree Difficulty w/ Childcare or Family Care: No Living arrangements: with family Additional living arrangements comments: Spiritual care concerns: No Comments 07/23/24 rapid response called on pt. while on commode. pt d/t transient unresponsive episode. transferred to ICU hypotensive. pt received 1 unit PRBC, I u FFP & Vit K. Exam Day of Procedure 07/24/24 20:17
[2024-07-24] MEDS: ATORVASTATIN 20 MG TABLET PO (20:57)
[2024-07-25] VITALS (26 sets, daily range): BP systolic 117–164; BP diastolic 47–79; PULSE 66–87; RESP 9–25; TEMP 36.4–36.9; O2SAT 95–100
[2024-07-25 04:15] LABS: Basophils Percent Auto 0.7 % (0.2-1.2); Eosinophils Absolute Auto 0.3 K/mm3 (0-0.3); Eosinophils Percent Auto 5.8 % (0-4.4); Hematocrit 23.5 % (42.0-52.0); Hemoglobin 7.9 g/dL (14.0-18.0); Immature Granulocyte Absolute 0.34 K/mm3 (0.00-0.031); Immature Granulocyte Percent A 6.1 % (0-0.5); Lymphocytes Percent Auto 30.6 % (18.3-44.2); Mean Corpuscular HGB Conc 33.6 g/dl (32-36); Mean Corpuscular Hemoglobin 30.6 pg (26-34); Mean Corpuscular Volume 91.1 fl (80-100); Monocytes Absolute Auto 0.5 K/mm3 (0.1-0.6); Monocytes Percent Auto 8.8 % (2.6-8.5); Neutrophils Absolute Auto 2.7 K/mm3 (1.3-6.7); Platelet Count Result 223 k/mm3 (150-375); Red Blood Count 2.58 M/mm3 (4.6-6.20); Red Cell Distribution Width 15.6 % (11.5-14.5); White Blood Count 5.6 K/mm3 (4.5-10.0)
[2024-07-25 04:29] LABS: INR 1.1; Prothrombin Time 14.3 Seconds (11.1-14.7)
[2024-07-25 04:31] LABS: Partial Thromboplastin Time 30.8 Seconds (22.3-36.8)
[2024-07-25 04:37] LABS: Alanine Aminotransferase 59 U/L (6-50); Albumin Level 2.9 g/dL (3.5-5.1); Alkaline Phosphatase 113 U/L (38-126); Anion Gap 5 mmol/L (4-12); Aspartate Amino Transferase 55 U/L (17-59); Bilirubin,Total 1.3 mg/dL (0.2-1.3); Blood Urea Nitrogen 33 mg/dL (9-20); Calcium 8.1 mg/dL (8.4-10.2); Carbon Dioxide 26 mmol/L (22-30); Chloride 105 mmol/L (98-107); Estimated CRCL calculation 74 ml/min; Estimated Glomerular Filt Rate > 60; Glucose 107 mg/dL (65-110); Magnesium 1.9 mg/dL (1.6-2.3); Phosphorus 3.8 mg/dL (2.5-4.5); Potassium 3.5 mmol/L (3.4-5.0); Sodium 136 mmol/L (137-145)
[2024-07-25] MEDS: metroNIDAZOLE 500 MG/ISO 100ML 500 MG/100 ML BAG 100 MG IVPB ×3 (05:50→22:08)
--- NOTE | 2024-07-25 07:29 | P.PNAN_ITS ---
Anes - Eval Final PreProcedure Day of Procedure 07/25/24 07:29 Patient weight: obese Heart: regular rate and rhythm Lungs: clear to auscultation Airway: Mallampati scale class II Neurological: alert and oriented Last oral intake: >/= 8 hours ASA classification: III Emergent: no Anesthetic plan: proceed Anesthesia type and monitoring: general ETT and standard monitoring Results Review: All pre-operative results and documents have been reviewed as part of the pre- operative evaluation. Informed Consent: The patient's anesthetic plan and its attendant risks and benefits were discussed with the patient/family/POA. Questions were solicited and answers provided to the satisfaction of the patient/family/POA.
--- NOTE | 2024-07-25 07:32 | WPDHPUPDATE1 ---
History and Physical Update Update Date/Time: 07/25/24 07:32 History and Physical has been reviewed, including an updated exam of the patient. There are NO changes in the patient's condition. Risks, benefits, and alternatives have been discussed and questions answered. Patient agrees to proceed with procedure.
[2024-07-25] MEDS: BUPIVACAINE/EPINEPHRINE 0.5% 50 ML VIAL 30 ML INFILTRATE (07:43)
--- NOTE | 2024-07-25 08:03 | PC.NURSE ---
Patient transported by bed to OR at 0725. Handoff given to KLAUS More with pre-op. OR team to continue patient care at this time.
--- NOTE | 2024-07-25 08:24 | S_PTH ---
PATIENT: Romario Bonds LOC: [id number] U#:[id number] AGE/SX: 73/M ROOM: 349 RE07/24/[address]: Leon Bartlett MD : 1950 BED: 01 DIS: 07/30/2024 SPEC #: [id number] RECD: 07/26/24 08:13 STATUS: HE [place] #: [id number] ROCIO: 07/25/24 08:[address]: Dawson Haro DEPT: [facility] Surgical RECD BY: Emely Snowden ENTERED: 07/26/24 08:13 SP TYPE: Surgical OTHR DR: MD Natasha Jacinto MD Tissues: A - Gallbladder Procedures: Hematoxylin and Eosin Stain Gross and Microscopic Level 3
--- NOTE | 2024-07-25 08:58 | P.PNINT_ITS ---
Progress Note: A&P Assessment and Plan (1) Acute blood loss anemia: Code(s): D62 - Acute posthemorrhagic anemia Status: Acute Assessment and Plan: Patient syncopal, anemic could be related to GI bleed as he had melena/black tardy stools -could be related to sphincterotomy which was done on 07/20/2024 -patient was transfuse 1 unit of packed RBCs -hemoglobin remained stable -INR is 1.9, will transfuse 1 unit of FFP and give vitamin K -07/25: INR is 1.1. Hemoglobin dropped to 7.9, type and screen has been ordered (2) Melena: Code(s): K92.1 - Melena Status: Acute Assessment and Plan: As above -appreciate GI evaluation and recommendation -discussed with GI, will continue to monitor hemoglobin -patient may require EGD at some point (3) Acute kidney injury: Code(s): N17.9 - Acute kidney failure, unspecified Status: Acute Assessment and Plan: Acute kidney injury likely related to hypovolemia, decreased p.o. intake of solids and liquids -patient given IV fluids, packed RBCs -c007/25: reatinine normalized, urine output has been adequate -continue to encourage oral intake, especially fluid -monitor urine output, renal function electrolytes (4) Cholelithiasis: Code(s): K80.20 - Calculus of gallbladder without cholecystitis without obstruction Status: Acute Assessment and Plan: Patient with cholelithiasis -surgery following the patient -07/25: Patient has been taken to the OR for cholecystectomy (5) Elevated liver enzymes: Code(s): R74.8 - Abnormal levels of other serum enzymes Status: Acute Assessment and Plan: Elevated LFTs likely related to cholelithiasis, trending down since last a dmission -total bilirubin is also decreasing since last admission -continue to monitor (6) Weakness: Code(s): R53.1 - Weakness Status: Acute Assessment and Plan: States he feels better and perked up after fluids and packed RBCs (7) Sepsis: Qualifiers: Sepsis type: sepsis due to unspecified organism Sepsis acute organ dysfunction status: without acute organ dysfunction Qualified Code(s): A41.9 - Sepsis, unspecified organism Code(s): A41.9 - Sepsis, unspecified organism Status: Acute Assessment and Plan: Hypotension multifactorial, likely related to decreased p.o. intake, GI bleed,, infection -continue cefepime, Flagyl (07/23) -blood pressures have been stable after IV fluids, albumin, packed RBC -continue to monitor closely in the ICU today (8) Syncope: Code(s): R55 - Syncope and collapse Status: Acute Assessment and Plan: Syncope could be related to generalized weakness, hypotension, vasovagal, anemia -patient is more awake, alert now hemodynamically stable -will have PT/OT evaluate the patient Plan DVT prophylaxis: SCDs, no chemoprophylaxis likely related to be GI bleed Stress ulcer prophylaxis: Protonix IV q.12 hours Nutrition: NPO for surgery Code Status: Full code Critical Care Time Spent: 33 minutes Due to a high probability of clinically significant, life threatening deterioration, the patient required my highest level of preparedness to intervene emergently and I personally spent this critical care time directly and personally managing the patient. This critical care time included obtaining a history; examining the patient; pulse oximetry; ordering and review of studies; arranging urgent treatment with development of a management plan; evaluation of patient's response to treatment; frequent reassessment; and discussions with other providers. It was exclusive of separately billable procedures and treating other patients and teaching time. Please see Assessment and Plan section and the rest of the note for further information on patient assessment and treatment This dictation may have been done utilizing a voice recognition system. Attempts have been made to correct errors. However, there may be uncorrected grammatical, spelling, and recognitions errors present. Subjective Date/time seen: 07/25/24 08:58 Interval history: Hypotension, presyncope/syncope, melena, anemia, acute kidney injury, GI bleed, cholecystitis 07/25/2024: Patient seen and examined the ICU, is awake, alert, denies any chest pain, shortness of breath, abdominal pain, nausea vomiting at this time, hemodynamically stable, adequate urine out. Drop in hemoglobin to 7.9 this morning. Potassium is 3.5. Creatinine has improved and normalized Review of Systems Review of Systems: All systems reviewed & are unremarkable except as noted in HPI and below Exam Narrative: General: Pleasant gentleman in no acute distress HEENT:? Pupils equal reactive, sclera is clear, moist oral mucosa Neck:? Supple, thick neck Respiratory:? Clear to auscultation bilaterally, decreased at bases, no wheezing or rales, adequate air entry Cardiac:? S1-S2 is normal, regular rate and rhythm Abdomen:? Soft, obese, tender to palpation in the right upper quadrant also tender in right lower quadrant, normoactive bowel sound Extremities:? Trace edema, palpable pedal pulses Neuro:? Patient is awake, alert, oriented, nonfocal. Able to answer questions appropriately and follows simple commands in all extremities Skin:? No skin issues Psych:? Normal mentation and affect Objective Data Vital Signs Vital Signs: Vital Signs - 24 hr 07/24/24 10:00 07/24/24 10:00 07/24/24 12:00 Temperature 97.6 F Pulse Rate 91 83 82 Respiratory Rate 12 14 Blood Pressure 99/72 L 102/59 L Pulse Oximetry 99 99 Oxygen Delivery 07/24/24 12:00 07/24/24 13:32 07/24/24 13:49 Temperature 98 F 98 F Pulse Rate 82 83 79 Respiratory Rate 16 14 Blood Pressure 100/55 L 115/54 L Pulse Oximetry 99 96 Oxygen Delivery 07/24/24 14:00 07/24/24 14:00 07/24/24 14:44 Temperature 97.9 F Pulse Rate 78 78 Respiratory Rate 13 Blood Pressure 112/62 Pulse Oximetry 96 Oxygen Delivery 07/24/24 14:49 07/24/24 16:00 07/24/24 16:00 Temperature 97.9 F 97.9 F Pulse Rate 78 70 76 Respiratory Rate 13 15 Blood Pressure 150/80 H 141/69 H Pulse Oximetry 99 98 Oxygen Delivery 07/24/24 18:00 07/24/24 18:00 07/24/24 20:00 Temperature Pulse Rate 76 75 Respiratory Rate 13 Blood Pressure 141/66 H Pulse Oximetry 100 Oxygen Delivery Room Air 07/24/24 20:00 07/24/24 20:00 07/24/24 22:00 Temperature 97.9 F Pulse Rate 70 70 73 Respiratory Rate 10 L 13 Blood Pressure 128/59 L 108/57 L Pulse Oximetry 100 100 Oxygen Delivery 07/24/24 22:55 07/25/24 00:00 07/25/24 00:00 Temperature Pulse Rate 72 73 Respiratory Rate Blood Pressure Pulse Oximetry 100 Oxygen Delivery CPAP 07/25/24 00:00 07/25/24 02:00 07/25/24 02:10 Temperature 98.2 F Pulse Rate 73 69 71 Respiratory Rate 12 11 L Blood Pressure 117/47 L 119/65 Pulse Oximetry 96 98 97 Oxygen Delivery 07/25/24 04:00 07/25/24 04:00 07/25/24 04:00 Temperature 98.2 F Pulse Rate 66 66 Respiratory Rate 9 L Blood Pressure 119/63 Pulse Oximetry 98 Oxygen Delivery CPAP 07/25/24 06:00 07/25/24 07:00 07/25/24 07:25 Temperature Pulse Rate 68 72 Respiratory Rate 16 Blood Pressure 131/64 Pulse Oximetry 100 Oxygen Delivery Room Air Intake/Output Intake/Output: Intake & Output 07/22/24 07/23/24 07/24/24 07/25/24 23:59 23:59 23:59 23:59 Intake Total 1050 4936.2 160 Output Total 2400 1150 Balance 1050 2536.2 -990 Meds/Results Medications: Active Medications Generic Name Dose Route Start Last Admin Trade Name Freq PRN Reason Stop Dose Admin Acetaminophen 650 mg 07/23/24 16:28 Acetaminophen 325 Mg Tablet PO Q4H PRN Mild Pain (1-3) or Fever Hydrocodone Bitart/Acetaminophen 1 tab 07/23/24 16:28 07/23/24 17:38 Hydrocodone/Acetaminophen (*Crx) 5-325 Mg Tablet PO 1 tab Q4H PRN Administration Moderate Pain (4-6) Atorvastatin Calcium 20 mg 07/23/24 21:00 07/24/24 20:57 Atorvastatin 20 Mg Tablet PO 20 mg HS OLGA Administration Bupropion HCl 300 mg 07/24/24 09:00 07/24/24 08:23 Bupropion Hcl Xl (24 Hr) 150 Mg Tabcr PO 300 mg QAM OLGA Administration Buspirone HCl 15 mg 07/23/24 17:00 07/24/24 17:25 Buspirone Hcl 5 Mg Tablet PO 15 mg BID OLGA Administration Carvedilol 3.125 mg 07/23/24 21:00 07/24/24 04:37 Carvedilol 3.125 Mg Tablet PO Not Given Q12HR OLGA Clonazepam 1 mg 07/23/24 16:30 Clonazepam (*Crx) 0.5 Mg Tablet PO DAILY PRN anxiety Docusate Sodium 100 mg 07/23/24 17:00 07/24/24 17:25 Docusate Sodium 100 Mg Capsule PO 100 mg BID OLGA Administration Duloxetine HCl 60 mg 07/24/24 09:00 07/24/24 08:23 Duloxetine Hcl 60 Mg Capsule.Dr PO 60 mg DAILY OLGA Administration Fentanyl Citrate 25 mcg 07/25/24 07:28 Fentanyl Citrate Inj (*Crx) 100 Mcg/2 Ml Vial IV PUSH Q2M PRN Pain Sodium Chloride 1,000 mls @ 75 mls/hr 07/23/24 16:30 07/24/24 18:35 Normal Saline Iv IV CONT 75 mls/hr .[id number] OLGA Administration Cefepime HCl 2 gm in 50 mls @ 100 mls/hr 07/23/24 22:00 07/24/24 21:34 Maxipime 2 Gm/Ns 50 Ml IVPB Infused Q12H OLGA Infusion Metronidazole 500 mg in 100 mls @ 100 mls/hr 07/23/24 21:00 07/25/24 06:57 Flagyl 500 Mg/Iso Soln 100 Ml IVPB Infused Q8HR OLGA Infusion Sodium Chloride 250 mls @ 30 mls/hr 07/25/24 07:19 Normal Saline Iv IV CONT 07/25/24 15:38 .Q8H20M STA Lactated Ringer's 1,000 mls @ 30 mls/hr 07/25/24 07:30 Lr - Lactated Ringers Iv IV CONT .Q24H OLGA Lactated Ringer's 1,000 mls @ 30 mls/hr 07/25/24 07:30 Lr - Lactated Ringers Iv IV CONT .Q24H OLGA Ondansetron HCl 4 mg 07/25/24 07:28 Ondansetron Inj 4 Mg/2 Ml Vial IV PUSH ONCE PRN Nausea Pantoprazole Sodium 40 mg 07/24/24 09:00 07/24/24 20:57 Pantoprazole Sodium Iv 40 Mg Vial IV PUSH 40 mg Q12HR OLGA Administration Perflutren Lipid Microsphere 0 ml 07/24/24 14:11 Perflutren Lipid Microspheres 1.5 Ml Vial Diluted To 10 Ml Total Volume IV PUSH 07/27/24 14:11 ONCE PRN adequate visualization Protocol Pregabalin 200 mg 07/23/24 21:00 07/24/24 20:57 Pregabalin (*Crx) 50 Mg Capsule PO 200 mg Q12H OLGA Administration Tamsulosin HCl 0.4 mg 07/24/24 09:00 07/24/24 08:23 Tamsulosin Hcl 0.4 Mg Capsule PO 0.4 mg DAILY OLGA Administration Tizanidine HCl 4 mg 07/23/24 16:30 Tizanidine Hcl 4 Mg Tablet PO Q6H PRN muscle spasticity Trimethobenzamide HCl 200 mg 07/23/24 16:28 07/23/24 17:39 Trimethobenzamide Hcl 200 Mg/2 Ml Vial IM 200 mg Q6H PRN Administration Nausea And Vomiting Radiology Results: ITS Impressions Chest X-Ray 07/23/24 11:33 IMPRESSION: 1. No acute cardiopulmonary disease. Abdomen/Pelvis CT 07/23/24 12:44 IMPRESSION: 1. Age-indeterminate epiploic appendagitis along the descending colon. No other acute intra-abdominal/pelvic process. 2. Cholelithiasis. 3. Diverticulosis. 4. Prostatome[address]aly. Head CT 07/23/24 22:09 IMPRESSION: No acute intracranial findings. Chest/Abdomen/Pelvis CTA 07/23/24 23:15 IMPRESSION: CHEST: 1. No evidence of aneurysm or dissection. 2. No acute cardiopulmonary pathology. ABDOMEN/PELVIS: 1. No evidence of active bleeding seen. 2. Atherosclerotic changes at the origin of all branches of the aorta. 3. Cholelithiasis. 4. Small sliding hiatus hernia. 5. Other appearances are unchanged from previous examination. Labs Labs: Laboratory Results - last 24 hr 07/23/24 07/24/24 07/25/24 18:45 18:00 03:44 WBC 5.6 RBC 2.58 L Hgb 7.9 L Hct 23.5 L MCV 91.1 MCH 30.6 MCHC 33.6 RDW 15.6 H Plt Count 223 MPV 10.0 Immature Gran % (Auto) 6.1 H Neut % (Auto) 48.0 Lymph % (Auto) 30.6 [place] % (Auto) 8.8 H Eos % (Auto) 5.8 H Baso % (Auto) 0.7 Lymph # (Auto) 1.70 [place] # (Auto) 0.5 Eos # (Auto) 0.3 Baso # (Auto) 0.0 Abs Immat Gran (auto) 0.34 H Absolute Neuts (auto) 2.7 Absolute Nucleated RBC 0.000 Nucleated RBC % 0.0 PT 14.3 D INR 1.1 APTT 30.8 Sodium 136 L Potassium 3.5 Chloride 105 Carbon Dioxide 26 Anion Gap 5 BUN 33 H D Creatinine 1.14 Estim Creat Clear Calc 74 Estimated GFR > 60 Glucose 107 Lactic Acid 1.0 Calcium 8.1 L Phosphorus 3.8 Magnesium 1.9 Total Bilirubin 1.3 AST 55 ALT 59 H Alkaline Phosphatase 113 Total Protein 5.0 L Albumin 2.9 L Urine Color Yellow Urine Appearance Clear Urine pH 5.5 Ur Specific [place] 1.028 Urine Protein Negative Urine Glucose (UA) Negative Urine Ketones Negative Ur Blood (Man) Negative Urine Nitrate Negative Urine Bilirubin Negative Urine Urobilinogen 0.2 Leukocyte Esterase Rfl Negative Nasal MRSA (PCR) Not detected Blood Type O Negative Antibody Screen Negative Crossmatch See Detail Quality VTE Prophylaxis VTE prophylaxis: mechanical ordered
[2024-07-25] MEDS: LACTATED RINGERS 1,000 ML 30 ML IV CONT ×2 (09:23)
--- NOTE | 2024-07-25 09:51 | W.PM.PROC2 ---
Procedure Note - Detailed Date of Procedure 07/25/24 Pre-op Diagnosis Chronic cholecystitis with choledocholithiasis and sepsis Post-op Diagnosis Same Procedure Performed Laparoscopic cholecystectomy Surgeon Dawson Haro MD [employer] Tia EVANS Anesthesia General and Local Indications Patient is a 73 year old man who presented about a week ago with abdominal pain and vomiting. He was found to have bacteremia and cholangitis. He underwent ERCP with removal of an obstructing distal common bile duct stone. He has continued to have problems with nausea vomiting and sepsis. He is taken to surgery now for laparoscopic cholecystectomy for cholecystitis Findings Liver was not overly enlarged but was firm. Did not appear to be cirrhotic. Gallbladder was chronically inflamed and had multiple adhesions. There was no biliary ductal dilatation. There were pigmented small stones in the gallbladder. Description of Procedure Patient was taken to surgery and induced into general anesthesia. The abdomen is prepped and draped. The initial trocar was a 5 mm applied Medical trocar placed in left subcostal position. We gained intraperitoneal location and insufflated. Once the abdomen was distended with CO2 gas, the four trocars were placed in the usual positions and under direct visualization. The liver did not hang below the costal margin in fact it was at or above the costal margin. It was not nodular but was firm. The gallbladder had omental adhesions. These were taken down over the fundus. I then used a laparoscopic aspirator and decompress the gallbladder. The cholecystotomy was closed with a Vicryl endoloop. We then elevated the gallbladder and took down the remaining adhesions until the infundibulum was exposed. We then retracted the gallbladder anterosuperiorly and traction was placed on the infundibulum. We dissected the cystic duct and cystic artery. These structures were chronically inflamed with only a small amount of acute inflammation and edema. The structures were hypervascular but we proceeded slowly and used the cautery to keep bleeding to a minimum. The cystic duct and cystic artery were eventually dissected out clearly. We also dissected the lower 3rd of the gallbladder off the liver. Critical view was achieved. I then securely clipped and divided the cystic duct and cystic artery. We then dissected the gallbladder free of the liver mostly using cautery. The upper 3rd of the gallbladder was densely adherent to the liver and the tissue planes were non-existent. Despite using as much care as possible, a couple of entries into the gallbladder and also some into the superficial liver surface did occur. Bleeding was controlled with the cautery. Eventually the gallbladder was completely removed. It was placed in an Endo-Catch bag. It was extricated through the 10 11 epigastric trocar site. We did have to enlarge the trocar site slightly to accommodate the large gallbladder with thickened wall and stones. We replaced the 10 11 trocar and used a towel clip to occlude the skin and subcutaneous so that we could re-insufflated. After re insufflation, we inspected the gallbladder fossa. We irrigated and suctioned the gallbladder fossa and right upper quadrant repeatedly. There was no evidence of bleeding or bile leakage. We then evacuated CO2 and removed the trocar sleeves. I closed the fascia at the 10 11 trocar site with 0 Vicryl suture. The subcutaneous was closed with 3-0 Vicryl suture. All skin incisions were closed with running 4-0 Monocryl skin suture. The wounds were dressed with Exofin surgical adhesive. Patient was awakened and taken to recovery in good condition. Sponge and needle counts were correct x2. Estimated Blood Loss -5 Urine Output 1,150 Drains No Packing No Pathology Yes (Gallbladder) Complications None Condition Stable Disposition PACU [facility] Billing Surgery - Charge Forward: Surgery Billing (Laparoscopic cholecystectomy)
--- NOTE | 2024-07-25 10:17 | PC.NURSE ---
Patient transferred back to ICU room 5 at 1018 from the OR.
[2024-07-25] MEDS: DOCUSATE SODIUM 100 MG CAPSULE PO ×2 (10:49→16:18)
[2024-07-25] MEDS: busPIRone HCL 5 MG TABLET 15 MG PO ×2 (10:49→16:18)
[2024-07-25] MEDS: POTASSIUM CHLORIDE 20 MEQ ER TABLET 40 MEQ PO (10:50)
[2024-07-25] MEDS: PANTOPRAZOLE 40 MG TABLET PO (10:50)
[2024-07-25] MEDS: CEFEPIME 2 GM/NS 50 ML 2 GM/50 ML BAG IVPB ×2 (10:50→21:12)
[2024-07-25] MEDS: TAMSULOSIN HCL 0.4 MG CAPSULE PO (10:50)
[2024-07-25] MEDS: DULoxetine HCL 60 MG CAPSULE.DR PO (10:50)
[2024-07-25] MEDS: PREGABALIN (*CRX) 50 MG CAPSULE 200 MG PO ×2 (10:50→21:05)
[2024-07-25] MEDS: buPROPion HCL XL (24 HR) 150 MG TABCR 300 MG PO (10:50)
[2024-07-25] MEDS: KCL 30 MEQ/0.9% SOD CHL 1,000 ML 80 ML IV CONT (11:20)
[2024-07-25] MEDS: lisinopriL 20 MG TABLET 40 MG PO (21:06)
[2024-07-25] MEDS: ATORVASTATIN 20 MG TABLET PO (21:06)
[2024-07-25] MEDS: amLODIPine BESYLATE 5 MG TABLET PO (21:06)
--- NOTE | 2024-07-25 23:14 | PC.NURSE ---
pt transfered to rm [id number] in a wheelchair report given to Emilia
--- NOTE | 2024-07-25 23:40 | PC.NURSE ---
This patient, Romario Bonds, was received from [ICU 5 ] on 07/25/24 at 2303. Patient/family oriented to unit policies and routines
[2024-07-26] VITALS (13 sets, daily range): BP systolic 132–148; BP diastolic 45–60; PULSE 56–76; RESP 16–20; TEMP 36.7; O2SAT 93–100
--- NOTE | 2024-07-26 | ECHO_ITS ---
Patient Info Name: Romario Bonds Age: 73 years : 1950 Gender: Male Ht: 75 in Wt: 287 lbs BSA: 2.67 m2 HR: 72 bpm BP: 154 / 72 mmHg Technical Quality: Fair Exam Date: 07/26/2024 12:30 PM Patient Status: I Admit Date: 07/24/2024 Exam Type: CA echo doppler color flow Complete two-dimensional, color flow and Doppler transthoracic echocardiogram is performed. Staff Referring Physician: Janine Khalil Photogeologist: Ania Sam Attending Provider: Joya Nugent Summary 1. Complete two-dimensional, color flow and Doppler transthoracic echocardiogram is performed. 2. Left ventricular chamber dimension is normal. 3. Left ventricular systolic function is normal, estimated at 65-70. 4. The left ventricular diastolic function is abnormal. 5. E/e' 15 is elevated. 6. Left atrial chamber dimension is severely enlarged. 7. Right atrial chamber dimension is moderately enlarged. 8. There is mild aortic valve sclerosis. 9. There is mild mitral valve regurgitation. 10. There is mild tricuspid valve regurgitation. 11. No pulmonary hypertension, estimated pulmonary arterial systolic pressure is 37 mmHg. Left Ventricle E/e' 15 is elevated. Left ventricular chamber dimension is normal. Left ventricular systolic function is normal, estimated at 65-70. The left ventricular diastolic function is abnormal. Right Ventricle Right ventricular chamber dimension is normal. Right ventricular systolic function is normal and with normal TAPSE 2.7 cm. Left Atria Left atrial chamber dimension is severely enlarged. Right Atria Right atrial chamber dimension is moderately enlarged. Aortic Valve The aortic valve is trileaflet. There is mild aortic valve sclerosis. There is no aortic valve stenosis. There is no aortic valve regurgitation. Pulmonic Valve There is no pulmonic regurgitation. Mitral Valve There is no mitral valve stenosis. There is mild mitral valve regurgitation. Tricuspid Valve There is mild tricuspid valve regurgitation. No pulmonary hypertension, estimated pulmonary arterial systolic pressure is 37 mmHg. Pericardium/Pleural There is no pericardial effusion. Inferior Vena Cava Normal inferior vena cava with >50% collapse upon inspiration consistent with normal right atrial pressure, 5 mmHg. Aorta The aortic root size at the sinus of Valsalva is normal. Left Ventricular Outflow Tract Name Value Normal LVOT 2D LVOT Diameter 2.1 cm LVOT Doppler LVOT Peak Velocity 182 cm/s LVOT Peak Gradient 13 mmHg LVOT Mean Gradient 6 mmHg LVOT VTI 36 cm LVOT VTI/AV VTI Ratio 0.7 LVOT Stroke Volume 120 ml LVOT CO 23.1 l/min LVOT CI 8.7 l/min/m2 Pulmonic Valve Name Value Normal PV Doppler PV Peak Velocity 191 cm/s PV Peak Gradient 15 mmHg PV Mean Gradient 9 mmHg Mitral Valve Name Value Normal MV Diastolic Function MV E Peak Velocity 153 cm/s MV A Peak Velocity 90 cm/s MV E/A 1.7 MV Decel Time (PW) 178 ms MV Annular TDI MV E/e' (Septal) 14.7 MV E/e' (Lateral) 15.4 MV E/e' (Average) 15.0 Tricuspid Valve Name Value Normal TV Regurgitation Doppler TR Peak Velocity 283 cm/s TR Peak Gradient 32 mmHg Estimated PAP/RSVP RA Pressure 5 mmHg <=5 PA Systolic Pressure 37 mmHg <36 RV Systolic Pressure 37 mmHg <36 TV Annular TDI TV Lateral Chika s' Velocity 14.7 cm/s >=9.5 Aorta Name Value Normal Ascending Aorta Ao Root Diameter (MM) 3.8 cm Ao Root Diam Index (MM) 1.4 cm/m2 Aortic Valve Name Value Normal AV Doppler AV Peak Velocity 239 cm/s AV Peak Gradient 23 mmHg AV Mean Gradient 12 mmHg AV VTI 50 cm AV Area (Cont Eq VTI) 2.4 cm2 >=3.0 AV Area (Cont Eq Domingo) 2.5 cm2 AV DI ([place]) 0.76 AV Regurgitation 2D LVOT Area 3.3 cm2 Ventricles Name Value Normal LV Dimensions 2D/MM IVS Diastolic Thickness (2D) 1.2 cm 0.6-1.0 LVID Diastole (2D) 5.0 cm 4.2-5.8 LVIW Diastolic Thickness (2D) 1.1 cm 0.6-1.0 LVID Systole (2D) 3.0 cm 2.5-4.0 LVOT Diameter 2.1 cm LV Mass (2D Cubed) 214.88 g 88.00-224.00 LV Mass Index (2D Cubed) 81 g/m2 49-115 Relative Wall Thickness (2D) 0.45 <=0.42 LV Fractional Shortening/Ejection Fraction 2D/MM LV Fractional Shortening (2D) 39 % 25-43 LV EF (2D Teichholz) 69 % LV Diastolic Volume (4C MOD) 134 ml LV EF (4C MOD) 68 % LV Diastolic Volume (2C MOD) 167 ml LV EF (2C MOD) 78 % LV Diastolic Volume (BP MOD) 151 ml 62-150 LV Diastolic Volume Index (BP MOD) 57 ml/m2 34-74 LV Systolic Volume (BP MOD) 40 ml 21-61 LV Systolic Volume Index (BP MOD) 15 ml/m2 11-31 LV EF (BP MOD) 74 % 52-72 LV Diastolic Length (4C) 8.5 cm LV Systolic Length (4C) 7.0 cm LV Stroke Volume (4C MOD) 92 ml RV Dimensions 2D/MM RVID Diastole (2D) 5.7 cm 2.1-3.5 Atria Name Value Normal LA Dimensions LA Dimension (MM) 5.4 cm 3.0-4.0 LA Volume (4C A-L) 128 ml LA Volume (BP A-L) 116 ml RA Dimensions RA Systolic Major [place] Length (4C) 5.8 cm 2.1-2.7 RA Area (4C) 26.3 cm2 <=18.0 Report Signatures
[2024-07-26] MEDS: KCL 30 MEQ/0.9% SOD CHL 1,000 ML 80 ML IV CONT (02:43)
[2024-07-26 04:16] LABS: Hematocrit 22.9 % (42.0-52.0); Hemoglobin 7.3 g/dL (14.0-18.0); Mean Corpuscular HGB Conc 31.9 g/dl (32-36); Mean Corpuscular Hemoglobin 30.4 pg (26-34); Mean Corpuscular Volume 95.4 fl (80-100); Mean Platelet Volume 10.3 fl (7.4-10.4); Platelet Count Result 234 k/mm3 (150-375); Red Cell Distribution Width 15.7 % (11.5-14.5); White Blood Count 11.1 K/mm3 (4.5-10.0)
[2024-07-26 04:38] LABS: Alanine Aminotransferase 80 U/L (6-50); Albumin Level 3.1 g/dL (3.5-5.1); Alkaline Phosphatase 112 U/L (38-126); Anion Gap 7 mmol/L (4-12); Aspartate Amino Transferase 89 U/L (17-59); Bilirubin,Total 1.2 mg/dL (0.2-1.3); Blood Urea Nitrogen 17 mg/dL (9-20); Calcium 8.2 mg/dL (8.4-10.2); Carbon Dioxide 25 mmol/L (22-30); Chloride 102 mmol/L (98-107); Estimated CRCL calculation 91 ml/min; Estimated Glomerular Filt Rate > 60; Glucose 158 mg/dL (65-110); Sodium 134 mmol/L (137-145)
[2024-07-26 04:44] LABS: IFOB Positive Control Positive; Immunochemical Fecal Occult Bl Positive (N)
[2024-07-26] MEDS: metroNIDAZOLE 500 MG/ISO 100ML 500 MG/100 ML BAG 100 MG IVPB (06:03)
--- NOTE | 2024-07-26 08:06 | PM.PNGS ---
Progress Note: A&P Assessment and Plan (1) Acute cholangitis due to calculus of bile duct with obstruction: Code(s): K80.33 - Calculus of bile duct with acute cholangitis with obstruction Status: Acute Assessment and Plan: Resolved after ERCP 6 days ago (2) Cholelithiasis with chronic cholecystitis: Qualifiers: Cholelithiasis location: gallbladder and bile duct Biliary obstruction: without biliary obstruction Qualified Code(s): K80.64 - Calculus of gallbladder and bile duct with chronic cholecystitis without obstruction Code(s): K80.10 - Calculus of gallbladder with chronic cholecystitis without obstruction Status: Acute Assessment and Plan: Doing well after laparoscopic cholecystectomy done yesterday. Patient to have low-fat diet today. If tolerates this without nausea and vomiting, can be discharged from a surgical standpoint although he does have other problems with anemia. (3) Nausea and vomiting: Qualifiers: Vomiting type: unspecified Qualified Code(s): R11.2 - Nausea with vomiting, unspecified Code(s): R11.2 - Nausea with vomiting, unspecified Status: Acute Assessment and Plan: None since surgery (4) Chronic anticoagulation: Code(s): Z79.01 - [employer] (current) use of anticoagulants Status: Chronic Assessment and Plan: Can resume tomorrow from surgical standpoint (5) S/P ablation of atrial fibrillation: Code(s): Z98.890 - Other specified postprocedural states; Z86.79 - Personal history of other diseases of the circulatory system Status: Chronic (6) Stage 3 hepatic fibrosis: Code(s): K74.02 - Hepatic fibrosis, advanced fibrosis Status: Chronic Subjective Subjective Date/Time Seen: 07/26/24 08:06 Post Op day: 1 Patient reports: no new complaints, feels better, tolerating liquids well and afebrile Exam Const: General: comfortable, alert and awake GI: Inspection: non-distended, incision (Dry and healing well) and obesity GI Palp: Yes Soft to palpation and Yes Tenderness to palpation present (GI) (Expected postop tenderness) Objective Data Vital Signs Vital Signs: Vital Signs - 24 hr 07/25/24 09:23 07/25/24 09:30 07/25/24 09:45 Temperature 36.8 C Pulse Rate 70 72 72 Respiratory Rate 12 15 13 Blood Pressure 137/59 L 136/54 L 137/54 L Pulse Oximetry 95 96 96 Oxygen Delivery Room Air Room Air Room Air 07/25/24 10:00 07/25/24 10:12 07/25/24 10:19 Temperature 36.8 C Pulse Rate 72 74 68 Respiratory Rate 13 13 15 Blood Pressure 144/59 H 146/62 H 144/61 H Pulse Oximetry 96 96 96 Oxygen Delivery Room Air Room Air 07/25/24 10:29 07/25/24 10:44 07/25/24 10:59 Temperature Pulse Rate 71 68 71 Respiratory Rate 25 H 17 17 Blood Pressure 142/60 H 146/67 H 154/63 H Pulse Oximetry 98 97 98 Oxygen Delivery 07/25/24 11:14 07/25/24 11:44 07/25/24 12:00 Temperature Pulse Rate 69 71 70 Respiratory Rate 16 12 Blood Pressure 144/58 H 153/66 H Pulse Oximetry 98 98 Oxygen Delivery 07/25/24 12:14 07/25/24 13:14 07/25/24 14:00 Temperature 36.6 C 36.4 C Pulse Rate 72 76 87 Respiratory Rate 12 17 15 Blood Pressure 133/65 145/67 H 164/79 H Pulse Oximetry 98 100 100 Oxygen Delivery 07/25/24 15:00 07/25/24 16:00 07/25/24 16:00 Temperature 36.4 C Pulse Rate 83 81 85 Respiratory Rate 12 12 Blood Pressure 152/62 H 152/67 H Pulse Oximetry 100 99 Oxygen Delivery 07/25/24 16:00 07/25/24 19:29 07/25/24 19:31 Temperature Pulse Rate 85 86 86 Respiratory Rate 12 Blood Pressure Pulse Oximetry 100 Oxygen Delivery Room Air 07/25/24 22:11 07/26/24 00:00 07/26/24 01:24 Temperature 36.9 C Pulse Rate 84 76 67 Respiratory Rate 12 Blood Pressure 154/72 H Pulse Oximetry 100 Oxygen Delivery 07/26/24 01:40 07/26/24 04:00 07/26/24 07:50 Temperature 36.7 C Pulse Rate 74 56 L 62 Respiratory Rate 16 Blood Pressure 145/60 H Pulse Oximetry 100 100 Oxygen Delivery Intake/Output Intake/Output: Intake & Output 07/23/24 07/24/24 07/25/24 07/26/24 23:59 23:59 23:59 23:59 Intake Total 1050 5157.2 1746.7 1966.7 Output Total 2400 3600 1200 Balance 1050 2757.2 -1853.3 766.7 Meds/Results Medications: Active Medications Generic Name Dose Route Start Last Admin Trade Name Freq PRN Reason Stop Dose Admin Acetaminophen 500 mg 07/25/24 10:14 Acetaminophen 500 Mg Tablet PO Q6H PRN Pain Rated 1-3 Amlodipine Besylate 5 mg 07/25/24 21:00 07/25/24 21:06 Amlodipine Besylate 5 Mg Tablet PO 5 mg HS OLGA Administration Atorvastatin Calcium 20 mg 07/23/24 21:00 07/25/24 21:06 Atorvastatin 20 Mg Tablet PO 20 mg HS OLGA Administration Bupropion HCl 300 mg 07/24/24 09:00 07/25/24 10:50 Bupropion Hcl Xl (24 Hr) 150 Mg Tabcr PO 300 mg QAM OLGA Administration Buspirone HCl 15 mg 07/23/24 17:00 07/25/24 16:18 Buspirone Hcl 5 Mg Tablet PO 15 mg BID OLGA Administration Carvedilol 3.125 mg 07/23/24 21:00 07/24/24 04:37 Carvedilol 3.125 Mg Tablet PO Not Given Q12HR OLGA Clonazepam 1 mg 07/23/24 16:30 Clonazepam (*Crx) 0.5 Mg Tablet PO DAILY PRN anxiety Docusate Sodium 100 mg 07/23/24 17:00 07/25/24 16:18 Docusate Sodium 100 Mg Capsule PO 100 mg BID OLGA Administration Duloxetine HCl 60 mg 07/24/24 09:00 07/25/24 10:50 Duloxetine Hcl 60 Mg Capsule.Dr PO 60 mg DAILY OLGA Administration Enoxaparin Sodium 40 mg 07/26/24 09:00 Enoxaparin 40 Mg/0.4 Ml Syringe SUB-Q DAILY OLGA Cefepime HCl 2 gm in 50 mls @ 100 mls/hr 07/23/24 22:00 07/25/24 21:40 Maxipime 2 Gm/Ns 50 Ml IVPB 0 mls/hr Q12H OLGA Infusion Metronidazole 500 mg in 100 mls @ 100 mls/hr 07/23/24 21:00 07/26/24 07:03 Flagyl 500 Mg/Iso Soln 100 Ml IVPB Infused Q8HR OLGA Infusion Ibuprofen 800 mg in 200 mls @ 400 mls/hr 07/25/24 10:14 Caldolor 800 Mg/200 Ml IVPB Q6H PRN Breakthrough Pain Rated 1-3 or NPO Potassium Chloride/Sodium Chloride 1,000 mls @ 80 mls/hr 07/25/24 11:30 07/26/24 07:03 Kcl 30 Meq/Ns IV CONT 80 mls/hr .[id number] OLGA Infusion Labetalol HCl 20 mg 07/25/24 14:05 Labetalol Hcl Inj 100 Mg/20 Ml Vial IV PUSH Q4H PRN Hypertension Lisinopril 40 mg 07/25/24 21:00 07/25/24 21:06 Lisinopril 20 Mg Tablet PO 40 mg HS OLGA Administration Morphine Sulfate 2 mg 07/25/24 10:14 Morphine Sulfate (*Crx) 2 Mg/Ml Inj IV PUSH Q2H PRN Breakthrough Pain Rated 4-6 or NPO Morphine Sulfate 4 mg 07/25/24 10:14 Morphine Sulfate (*Crx) 4 Mg/Ml Inj IV PUSH Q2H PRN Breakthrough Pain Rated 7-10 or NPO Naloxone HCl 0.1 mg 07/25/24 10:14 Naloxone Hcl 0.4 Mg/Ml Vial IV PUSH Q2M PRN Opiate Reversal Ondansetron HCl 4 mg 07/25/24 10:14 Ondansetron Inj 4 Mg/2 Ml Vial IV PUSH Q4H PRN Nausea And Vomiting Oxycodone/Acetaminophen 1 tablet 07/25/24 10:14 Oxycodone/Acetaminophen (*Crx) 5-325 Mg Tablet PO Q4H PRN Pain Rated 4-6 Oxycodone/Acetaminophen 1 tab 07/25/24 10:14 Oxycodone/Acetaminophen (*Crx) 10-325 Mg Tablet PO Q6H PRN Pain Rated 7-10 Pantoprazole Sodium 40 mg 07/26/24 09:00 Pantoprazole 40 Mg Tablet PO QAM [facility] Perflutren Lipid Microsphere 0 ml 07/24/24 14:11 Perflutren Lipid Microspheres 1.5 Ml Vial Diluted To 10 Ml Total Volume IV PUSH 07/27/24 14:11 ONCE PRN adequate visualization Protocol Pregabalin 200 mg 07/23/24 21:00 07/25/24 21:05 Pregabalin (*Crx) 50 Mg Capsule PO 200 mg Q12H OLGA Administration Tamsulosin HCl 0.4 mg 07/24/24 09:00 07/25/24 10:50 Tamsulosin Hcl 0.4 Mg Capsule PO 0.4 mg DAILY OLGA Administration Tizanidine HCl 4 mg 07/23/24 16:30 Tizanidine Hcl 4 Mg Tablet PO Q6H PRN muscle spasticity Trimethobenzamide HCl 200 mg 07/23/24 16:28 07/23/24 17:39 Trimethobenzamide Hcl 200 Mg/2 Ml Vial IM 200 mg Q6H PRN Administration Nausea And Vomiting Radiology Results: ITS Impressions Chest X-Ray 07/23/24 11:33 IMPRESSION: 1. No acute cardiopulmonary disease. Abdomen/Pelvis CT 07/23/24 12:44 IMPRESSION: 1. Age-indeterminate epiploic appendagitis along the descending colon. No other acute intra-abdominal/pelvic process. 2. Cholelithiasis. 3. Diverticulosis. 4. Prostatomegaly. Head CT 07/23/24 22:09 IMPRESSION: No acute intracranial findings. Chest/Abdomen/Pelvis CTA 07/23/24 23:15 IMPRESSION: CHEST: 1. No evidence of aneurysm or dissection. 2. No acute cardiopulmonary pathology. ABDOMEN/PELVIS: 1. No evidence of active bleeding seen. 2. Atherosclerotic changes at the origin of all branches of the aorta. 3. Cholelithiasis. 4. Small sliding hiatus hernia. 5. Other appearances are unchanged from previous examination. Labs Labs: Laboratory Results - last 24 hr 07/23/24 07/25/24 07/26/24 18:45 20:28 03:49 WBC 11.1 H RBC 2.40 L Hgb 7.3 L Hct 22.9 L MCV 95.4 MCH 30.4 MCHC 31.9 L RDW 15.7 H Plt Count 234 MPV 10.3 Sodium 134 L Potassium 4.0 Chloride 102 Carbon Dioxide 25 Anion Gap 7 BUN 17 D Creatinine 0.92 Estim Creat Clear Calc 91 Estimated GFR > 60 Glucose 158 H Calcium 8.2 L Total Bilirubin 1.2 AST 89 H ALT 80 H Alkaline Phosphatase 112 Total Protein 5.0 L Albumin 3.1 L Stl Occult Blood (IFOB) Positive H Crossmatch See Detail
[2024-07-26] MEDS: PANTOPRAZOLE 40 MG TABLET PO (09:19)
[2024-07-26] MEDS: PREGABALIN (*CRX) 50 MG CAPSULE 200 MG PO ×2 (09:19→20:31)
[2024-07-26] MEDS: TAMSULOSIN HCL 0.4 MG CAPSULE PO (09:20)
[2024-07-26] MEDS: buPROPion HCL XL (24 HR) 150 MG TABCR 300 MG PO (09:20)
[2024-07-26] MEDS: DOCUSATE SODIUM 100 MG CAPSULE PO ×2 (09:20→17:13)
[2024-07-26] MEDS: busPIRone HCL 5 MG TABLET 15 MG PO ×2 (09:20→17:13)
[2024-07-26] MEDS: DULoxetine HCL 60 MG CAPSULE.DR PO (09:20)
[2024-07-26] MEDS: ENOXAPARIN 40 MG/0.4 ML SYRINGE SUB-Q (09:21)
[2024-07-26] MEDS: CEFEPIME 2 GM/NS 50 ML 2 GM/50 ML BAG IVPB (09:27)
--- NOTE | 2024-07-26 11:36 | WPDANESPN ---
Anes - Prog Note Post-Op Date/Time: 07/26/24 11:36 Cardiovascular status: normal Respiratory status: normal Airway patency: baseline Mental status: baseline Post-Op hydration status: normal Vital Signs: Last Vital Signs Temp 36.7 C 07/26/24 07:50 Pulse 71 07/26/24 08:00 Resp 16 07/26/24 07:50 BP 145/60 H 07/26/24 07:50 Pulse Ox 100 07/26/24 07:50 O2 Del Method Room Air 07/26/24 08:00 Pain Score (VAS): 3 I/O: Intake & Output 07/25/24 07/26/24 07/26/24 23:59 07:59 15:59 Intake Total 1186.7 1966.7 354 Output Total 1300 1200 Balance -113.3 766.7 354 Laboratory Tests 07/26/24 03:49 07/26/24 03:49 07/23/24 07/25/24 07/26/24 18:45 20:28 03:49 WBC 11.1 H RBC 2.40 L Hgb 7.3 L Hct 22.9 L MCV 95.4 MCH 30.4 MCHC 31.9 L RDW 15.7 H Plt Count 234 MPV 10.3 Sodium 134 L Potassium 4.0 Chloride 102 Carbon Dioxide 25 Anion Gap 7 BUN 17 D Creatinine 0.92 Estim Creat Clear Calc 91 Estimated GFR > 60 Glucose 158 H Calcium 8.2 L Total Bilirubin 1.2 AST 89 H ALT 80 H Alkaline Phosphatase 112 Total Protein 5.0 L Albumin 3.1 L Stl Occult Blood (IFOB) Positive H Crossmatch See Detail Patient Feedback: Patient satisfied with anesthetic care.
[2024-07-26] MEDS: metroNIDAZOLE 500 MG TABLET PO ×2 (13:51→22:12)
--- NOTE | 2024-07-26 14:03 | P.PNIM_ITS ---
Progress Note: A&P Assessment and Plan (1) Acute blood loss anemia: Code(s): D62 - Acute posthemorrhagic anemia Status: Acute Assessment and Plan: Patient syncopal, anemic could be related to GI bleed as he had melena/black tardy stools -could be related to sphincterotomy which was done on 07/20/2024 hb 7.3 s/p 1 unit pRBC still having melena stool awaiting GI eval (2) Melena: Code(s): K92.1 - Melena Status: Acute Assessment and Plan: As above -appreciate GI evaluation and recommendation -discussed with GI, will continue to monitor hemoglobin -patient may require EGD at some point -Protonix 40mg bid Awaiting GI eval (3) Acute kidney injury: Code(s): N17.9 - Acute kidney failure, unspecified Status: Acute Assessment and Plan: rsolved likely from hypovolemia regarding hemorrhagic shock (4) Cholelithiasis: Code(s): K80.20 - Calculus of gallbladder without cholecystitis without obstruction Status: Acute Assessment and Plan: Patient with cholelithiasis -surgery following the patient -07/25: Patient has been taken to the OR for cholecystectomy (5) Elevated liver enzymes: Code(s): R74.8 - Abnormal levels of other serum enzymes Status: Acute Assessment and Plan: resolvigng from hemorrhagic shock (6) Weakness: Code(s): R53.1 - Weakness Status: Acute Assessment and Plan: States he feels better and perked up after fluids and packed RBCs (7) Sepsis: Qualifiers: Sepsis type: sepsis due to unspecified organism Sepsis acute organ dysfunction status: without acute organ dysfunction Qualified Code(s): A41.9 - Sepsis, unspecified organism Code(s): A41.9 - Sepsis, unspecified organism Status: Acute Assessment and Plan: Hypotension multifactorial, likely related to decreased p.o. intake, GI bleed,, infection -continue cefepime, Flagyl (07/23) now on Cefidinir and Flagyl monitor (8) Syncope: Code(s): R55 - Syncope and collapse Status: Acute Assessment and Plan: Syncope could be related to generalized weakness, hypotension, vasovagal, anemia -patient is more awake, alert now hemodynamically stable -will have PT/OT evaluate the patient Plan DVT prophylaxis: SCDs, no chemoprophylaxis likely related to be GI bleed Stress ulcer prophylaxis: Protonix IV q.12 hours Code Status: Full code Subjective Date/time seen: 07/26/24 14:03 Interval history: COmfortable at bedside Still having melena stool and Awaiting GI eval Review of Systems Review of Systems: 12 systems were reviewed and are negativ e except for as per HPI. All systems reviewed & are unremarkable except as noted in HPI and below Exam Narrative: General: Pleasant gentleman in no acute distress HEENT:? Pupils equal reactive, sclera is clear, moist oral mucosa Neck:? Supple, thick neck Respiratory:? Clear to auscultation bilaterally, decreased at bases, no wheezing or rales, adequate air entry Cardiac:? S1-S2 is normal, regular rate and rhythm Abdomen:? Soft, obese, tender to palpation in the right upper quadrant also tender in right lower quadrant, normoactive bowel sound Extremities:? Trace edema, palpable pedal pulses Neuro:? Patient is awake, alert, oriented, nonfocal. Able to answer questions appropriately and follows simple commands in all extremities Skin:? No skin issues Psych:? Normal mentation and affect Objective Data Vital Signs Vital Signs: Vital Signs - 24 hr 07/25/24 15:00 07/25/24 16:00 07/25/24 16:00 Temperature 97.6 F Pulse Rate 83 81 85 Respiratory Rate 12 12 Blood Pressure 152/62 H 152/67 H Pulse Oximetry 100 99 Oxygen Delivery 07/25/24 16:00 07/25/24 19:29 07/25/24 19:31 Temperature Pulse Rate 85 86 86 Respiratory Rate 12 Blood Pressure Pulse Oximetry 100 Oxygen Delivery Room Air 07/25/24 22:11 07/26/24 00:00 07/26/24 01:24 Temperature 98.4 F Pulse Rate 84 76 67 Respiratory Rate 12 Blood Pressure 154/72 H Pulse Oximetry 100 Oxygen Delivery 07/26/24 01:40 07/26/24 04:00 07/26/24 07:50 Temperature 98.1 F Pulse Rate 74 56 L 62 Respiratory Rate 16 Blood Pressure 145/60 H Pulse Oximetry 100 100 Oxygen Delivery 07/26/24 08:00 07/26/24 08:00 07/26/24 12:00 Temperature Pulse Rate 71 76 Respiratory Rate Blood Pressure Pulse Oximetry Oxygen Delivery Room Air Intake/Output Intake/Output: Intake & Output 07/23/24 07/24/24 07/25/24 07/26/24 23:59 23:59 23:59 23:59 Intake Total 1050 5157.2 1746.7 2794.7 Output Total 2400 3600 1200 Balance 1050 2757.2 -1853.3 1594.7 Meds/Results Medications: Active Medications Generic Name Dose Route Start Last Admin Trade Name Freq PRN Reason Stop Dose Admin Acetaminophen 500 mg 07/25/24 10:14 Acetaminophen 500 Mg Tablet PO Q6H PRN Pain Rated 1-3 Amlodipine Besylate 5 mg 07/25/24 21:00 07/25/24 21:06 Amlodipine Besylate 5 Mg Tablet PO 5 mg HS OLGA Administration Atorvastatin Calcium 20 mg 07/23/24 21:00 07/25/24 21:06 Atorvastatin 20 Mg Tablet PO 20 mg HS OLGA Administration Bupropion HCl 300 mg 07/24/24 09:00 07/26/24 09:20 Bupropion Hcl Xl (24 Hr) 150 Mg Tabcr PO 300 mg QAM OLGA Administration Buspirone HCl 15 mg 07/23/24 17:00 07/26/24 09:20 Buspirone Hcl 5 Mg Tablet PO 15 mg BID OLAG Administration Carvedilol 3.125 mg 07/23/24 21:00 07/24/24 04:37 Carvedilol 3.125 Mg Tablet PO Not Given Q12HR OLGA Cefdinir 300 mg 07/26/24 21:00 Cefdinir 300 Mg Capsule PO 07/29/24 21:01 Q12HR OLGA Clonazepam 1 mg 07/23/24 16:30 Clonazepam (*Crx) 0.5 Mg Tablet PO DAILY PRN anxiety Docusate Sodium 100 mg 07/23/24 17:00 07/26/24 09:20 Docusate Sodium 100 Mg Capsule PO 100 mg BID OLGA Administration Duloxetine HCl 60 mg 07/24/24 09:00 07/26/24 09:20 Duloxetine Hcl 60 Mg Capsule.Dr PO 60 mg DAILY OLGA Administration Enoxaparin Sodium 40 mg 07/26/24 09:00 07/26/24 09:21 Enoxaparin 40 Mg/0.4 Ml Syringe SUB-Q 40 mg DAILY OLGA Administration Ibuprofen 800 mg in 200 mls @ 400 mls/hr 07/25/24 10:14 Caldolor 800 Mg/200 Ml IVPB Q6H PRN Breakthrough Pain Rated 1-3 or NPO Potassium Chloride/Sodium Chloride 1,000 mls @ 80 mls/hr 07/25/24 11:30 07/26/24 07:03 Kcl 30 Meq/Ns IV CONT 80 mls/hr .[id number] OLGA Infusion Labetalol HCl 20 mg 07/25/24 14:05 Labetalol Hcl Inj 100 Mg/20 Ml Vial IV PUSH Q4H PRN Hypertension Lisinopril 40 mg 07/25/24 21:00 07/25/24 21:06 Lisinopril 20 Mg Tablet PO 40 mg HS OLAG Administration Metronidazole 500 mg 07/26/24 14:00 07/26/24 13:51 Metronidazole 500 Mg Tablet PO 07/29/24 22:01 500 mg Q8HR OLGA Administration Morphine Sulfate 2 mg 07/25/24 10:14 Morphine Sulfate (*Crx) 2 Mg/Ml Inj IV PUSH Q2H PRN Breakthrough Pain Rated 4-6 or NPO Morphine Sulfate 4 mg 07/25/24 10:14 Morphine Sulfate (*Crx) 4 Mg/Ml Inj IV PUSH Q2H PRN Breakthrough Pain Rated 7-10 or NPO Naloxone HCl 0.1 mg 07/25/24 10:14 Naloxone Hcl 0.4 Mg/Ml Vial IV PUSH Q2M PRN Opiate Reversal Ondansetron HCl 4 mg 07/25/24 10:14 Ondansetron Inj 4 Mg/2 Ml Vial IV PUSH Q4H PRN Nausea And Vomiting Oxycodone/Acetaminophen 1 tablet 07/25/24 10:14 Oxycodone/Acetaminophen (*Crx) 5-325 Mg Tablet PO Q4H PRN Pain Rated 4-6 Oxycodone/Acetaminophen 1 tab 07/25/24 10:14 Oxycodone/Acetaminophen (*Crx) 10-325 Mg Tablet PO Q6H PRN Pain Rated 7-10 Pantoprazole Sodium 40 mg 07/26/24 09:00 07/26/24 09:19 Pantoprazole 40 Mg Tablet PO 40 mg QAM OLGA Administration Perflutren Lipid Microsphere 0 ml 07/24/24 14:11 Perflutren Lipid Microspheres 1.5 Ml Vial Diluted To 10 Ml Total Volume IV PUSH 07/27/24 14:11 ONCE PRN adequate visualization Protocol Pregabalin 200 mg 07/23/24 21:00 07/26/24 09:19 Pregabalin (*Crx) 50 Mg Capsule PO 200 mg Q12H OLGA Administration Tamsulosin HCl 0.4 mg 07/24/24 09:00 07/26/24 09:20 Tamsulosin Hcl 0.4 Mg Capsule PO 0.4 mg DAILY OLGA Administration Tizanidine HCl 4 mg 07/23/24 16:30 Tizanidine Hcl 4 Mg Tablet PO Q6H PRN muscle spasticity Trimethobenzamide HCl 200 mg 07/23/24 16:28 07/23/24 17:39 Trimethobenzamide Hcl 200 Mg/2 Ml Vial IM 200 mg Q6H PRN Administration Nausea And Vomiting Radiology Results: ITS Impressions Chest X-Ray 07/23/24 11:33 IMPRESSION: 1. No acute cardiopulmonary disease. Abdomen/Pelvis CT 07/23/24 12:44 IMPRESSION: 1. Age-indeterminate epiploic appendagitis along the descending colon. No other acute intra-abdominal/pelvic process. 2. Cholelithiasis. 3. Diverticulosis. 4. Prostatomegaly. Head CT 07/23/24 22:09 IMPRESSION: No acute intracranial findings. Chest/Abdomen/Pelvis CTA 07/23/24 23:15 IMPRESSION: CHEST: 1. No evidence of aneurysm or dissection. 2. No acute cardiopulmonary pathology. ABDOMEN/PELVIS: 1. No evidence of active bleeding seen. 2. Atherosclerotic changes at the origin of all branches of the aorta. 3. Cholelithiasis. 4. Small sliding hiatus hernia. 5. Other appearances are unchanged from previous examination. Labs Labs: Laboratory Results - last 24 hr 07/23/24 07/25/24 07/26/24 18:45 20:28 03:49 WBC 11.1 H RBC 2.40 L Hgb 7.3 L Hct 22.9 L MCV 95.4 MCH 30.4 MCHC 31.9 L RDW 15.7 H Plt Count 234 MPV 10.3 Sodium 134 L Potassium 4.0 Chloride 102 Carbon Dioxide 25 Anion Gap 7 BUN 17 D Creatinine 0.92 Estim Creat Clear Calc 91 Estimated GFR > 60 Glucose 158 H Calcium 8.2 L Total Bilirubin 1.2 AST 89 H ALT 80 H Alkaline Phosphatase 112 Total Protein 5.0 L Albumin 3.1 L Stl Occult Blood (IFOB) Positive H Crossmatch See Detail Quality VTE Prophylaxis VTE prophylaxis: mechanical ordered
--- NOTE | 2024-07-26 16:28 | P.PNGI_ITS ---
Progress Note: A&P Assessment and Plan (1) Melena: Code(s): K92.1 - Melena Status: Acute Assessment and Plan: Consistent with the previous note, the patient likely experienced a self- limited episode of GI bleeding secondary to the sphincterotomy (07/20), for which he did not seek immediate hospital care. Yesterday, he underwent a laparoscopic cholecystectomy and received a significant volume of intravenous fluids, likely contributing to the minor decrease in hemoglobin observed this morning (from 7.9 to 7.3). The patient's prolonged period without oral intake (more than one week) likely resulted in constipation, and the currently observed melena is likely residual from the earlier bleeding episode. His stable hemodynamics and normalized BUN strongly suggest the absence of active GI bleeding. We recommend continued observing stool color and if there is yarely pasty-looking melanotic stools along with a further drop in hematocrit and/or hemodynamic compromise, will schedule EGD. Subjective Date/time seen: 07/26/24 16:28 Interval history: The patient reports having passed black solid stools today. He denies dizziness, weakness or near syncopal episodes. There is no abdom Exam Narrative: Rectal exam: Solid stools, black color. Objective Data Vital Signs Vital Signs: Vital Signs - 24 hr 07/25/24 19:29 07/25/24 19:31 07/25/24 22:11 Temperature 98.4 F Pulse Rate 86 86 84 Respiratory Rate 12 12 Blood Pressure 154/72 H Pulse Oximetry 100 100 Oxygen Delivery Room Air 07/26/24 00:00 07/26/24 01:24 07/26/24 01:40 Temperature Pulse Rate 76 67 74 Respiratory Rate Blood Pressure Pulse Oximetry 100 Oxygen Delivery 07/26/24 04:00 07/26/24 07:50 07/26/24 08:00 Temperature 98.1 F Pulse Rate 56 L 62 71 Respiratory Rate 16 Blood Pressure 145/60 H Pulse Oximetry 100 Oxygen Delivery 07/26/24 08:00 07/26/24 12:00 07/26/24 15:49 Temperature 98.0 F Pulse Rate 76 70 Respiratory Rate 20 Blood Pressure 132/45 L Pulse Oximetry 100 Oxygen Delivery Room Air 07/26/24 16:00 Temperature Pulse Rate 74 Respiratory Rate Blood Pressure Pulse Oximetry Oxygen Delivery Intake/Output Intake/Output: Intake & Output 07/23/24 07/24/24 07/25/24/19/25 23:59 23:59 23:59 23:59 Intake Total 1050 5157.2 1746.7 3528.0 Output Total 2400 3600 1200 Balance 1050 2757.2 -1853.3 2328.0 Meds/Results Medications: Active Medications Generic Name Dose Route Start Last Admin Trade Name Freq PRN Reason Stop Dose Admin Acetaminophen 500 mg 07/25/24 10:14 Acetaminophen 500 Mg Tablet PO Q6H PRN Pain Rated 1-3 Amlodipine Besylate 5 mg 07/25/24 21:00 07/25/24 21:06 Amlodipine Besylate 5 Mg Tablet PO 5 mg HS OLGA Administration Atorvastatin Calcium 20 mg 07/23/24 21:00 07/25/24 21:06 Atorvastatin 20 Mg Tablet PO 20 mg HS OLGA Administration Bupropion HCl 300 mg 07/24/24 09:00 07/26/24 09:20 Bupropion Hcl Xl (24 Hr) 150 Mg Tabcr PO 300 mg QAM OLGA Administration Buspirone HCl 15 mg 07/23/24 17:00 07/26/24 09:20 Buspirone Hcl 5 Mg Tablet PO 15 mg BID OLGA Administration Carvedilol 3.125 mg 07/23/24 21:00 07/24/24 04:37 Carvedilol 3.125 Mg Tablet PO Not Given Q12HR OLGA Cefdinir 300 mg 07/26/24 21:00 Cefdinir 300 Mg Capsule PO 07/29/24 21:01 Q12HR OLGA Clonazepam 1 mg 07/23/24 16:30 Clonazepam (*Crx) 0.5 Mg Tablet PO DAILY PRN anxiety Docusate Sodium 100 mg 07/23/24 17:00 07/26/24 09:20 Docusate Sodium 100 Mg Capsule PO 100 mg BID OLGA Administration Duloxetine HCl 60 mg 07/24/24 09:00 07/26/24 09:20 Duloxetine Hcl 60 Mg Capsule.Dr PO 60 mg DAILY OLGA Administration Enoxaparin Sodium 40 mg 07/26/24 09:00 07/26/24 09:21 Enoxaparin 40 Mg/0.4 Ml Syringe SUB-Q 40 mg DAILY OLGA Administration Ibuprofen 800 mg in 200 mls @ 400 mls/hr 07/25/24 10:14 Caldolor 800 Mg/200 Ml IVPB Q6H PRN Breakthrough Pain Rated 1-3 or NPO Labetalol HCl 20 mg 07/25/24 14:05 Labetalol Hcl Inj 100 Mg/20 Ml Vial IV PUSH Q4H PRN Hypertension Lisinopril 40 mg 07/25/24 21:00 07/25/24 21:06 Lisinopril 20 Mg Tablet PO 40 mg HS OLGA Administration Metronidazole 500 mg 07/26/24 14:00 07/26/24 13:51 Metronidazole 500 Mg Tablet PO 07/29/24 22:01 500 mg Q8HR OLGA Administration Morphine Sulfate 2 mg 07/25/24 10:14 Morphine Sulfate (*Crx) 2 Mg/Ml Inj IV PUSH Q2H PRN Breakthrough Pain Rated 4-6 or NPO Morphine Sulfate 4 mg 07/25/24 10:14 Morphine Sulfate (*Crx) 4 Mg/Ml Inj IV PUSH Q2H PRN Breakthrough Pain Rated 7-10 or NPO Naloxone HCl 0.1 mg 07/25/24 10:14 Naloxone Hcl 0.4 Mg/Ml Vial IV PUSH Q2M PRN Opiate Reversal Ondansetron HCl 4 mg 07/25/24 10:14 Ondansetron Inj 4 Mg/2 Ml Vial IV PUSH Q4H PRN Nausea And Vomiting Oxycodone/Acetaminophen 1 tablet 07/25/24 10:14 Oxycodone/Acetaminophen (*Crx) 5-325 Mg Tablet PO Q4H PRN Pain Rated 4-6 Oxycodone/Acetaminophen 1 tab 07/25/24 10:14 Oxycodone/Acetaminophen (*Crx) 10-325 Mg Tablet PO Q6H PRN Pain Rated 7-10 Pantoprazole Sodium 40 mg 07/26/24 09:00 07/26/24 09:19 Pantoprazole 40 Mg Tablet PO 40 mg QAM OLGA Administration Perflutren Lipid Microsphere 0 ml 07/24/24 14:11 Perflutren Lipid Microspheres 1.5 Ml Vial Diluted To 10 Ml Total Volume IV PUSH 07/27/24 14:11 ONCE PRN adequate visualization Protocol Pregabalin 200 mg 07/23/24 21:00 07/26/24 09:19 Pregabalin (*Crx) 50 Mg Capsule PO 200 mg Q12H OLGA Administration Tamsulosin HCl 0.4 mg 07/24/24 09:00 07/26/24 09:20 Tamsulosin Hcl 0.4 Mg Capsule PO 0.4 mg DAILY OLGA Administration Tizanidine HCl 4 mg 07/23/24 16:30 Tizanidine Hcl 4 Mg Tablet PO Q6H PRN muscle spasticity Trimethobenzamide HCl 200 mg 07/23/24 16:28 07/23/24 17:39 Trimethobenzamide Hcl 200 Mg/2 Ml Vial IM 200 mg Q6H PRN Administration Nausea And Vomiting Radiology Results: ITS Impressions Chest X-Ray 07/23/24 11:33 IMPRESSION: 1. No acute cardiopulmonary disease. Abdomen/Pelvis CT 07/23/24 12:44 IMPRESSION: 1. Age-indeterminate epiploic appendagitis along the descending colon. No other acute intra-abdominal/pelvic process. 2. Cholelithiasis. 3. Diverticulosis. 4. Prostatome[address]aly. Head CT 07/23/24 22:09 IMPRESSION: No acute intracranial findings. Chest/Abdomen/Pelvis CTA 07/23/24 23:15 IMPRESSION: CHEST: 1. No evidence of aneurysm or dissection. 2. No acute cardiopulmonary pathology. ABDOMEN/PELVIS: 1. No evidence of active bleeding seen. 2. Atherosclerotic changes at the origin of all branches of the aorta. 3. Cholelithiasis. 4. Small sliding hiatus hernia. 5. Other appearances are unchanged from previous examination. Labs Labs: Laboratory Results - last 24 hr 07/23/24 07/25/24 07/26/24 18:45 20:28 03:49 WBC 11.1 H RBC 2.40 L Hgb 7.3 L Hct 22.9 L MCV 95.4 MCH 30.4 MCHC 31.9 L RDW 15.7 H Plt Count 234 MPV 10.3 Sodium 134 L Potassium 4.0 Chloride 102 Carbon Dioxide 25 Anion Gap 7 BUN 17 D Creatinine 0.92 Estim Creat Clear Calc 91 Estimated GFR > 60 Glucose 158 H Calcium 8.2 L Total Bilirubin 1.2 AST 89 H ALT 80 H Alkaline Phosphatase 112 Total Protein 5.0 L Albumin 3.1 L Stl Occult Blood (IFOB) Positive H Crossmatch See Detail
[2024-07-26] MEDS: lisinopriL 20 MG TABLET 40 MG PO (20:30)
[2024-07-26] MEDS: CEFDINIR 300 MG CAPSULE PO (20:30)
[2024-07-26] MEDS: amLODIPine BESYLATE 5 MG TABLET PO (20:30)
[2024-07-26] MEDS: ATORVASTATIN 20 MG TABLET PO (20:31)
[2024-07-26] MEDS: MORPHINE SULFATE (*CRX) 2 MG/ML INJ IV PUSH (20:36)
[2024-07-27] VITALS (7 sets, daily range): BP systolic 130–142; BP diastolic 57–73; PULSE 64–75; RESP 16–20; TEMP 36.3–36.9; O2SAT 97–99
[2024-07-27] MEDS: MORPHINE SULFATE (*CRX) 4 MG/ML INJ IV PUSH (03:10)
[2024-07-27 04:38] LABS: Basophils Percent Auto 0.5 % (0.2-1.2); Eosinophils Absolute Auto 0.6 K/mm3 (0-0.3); Eosinophils Percent Auto 9.1 % (0-4.4); Hematocrit 22.3 % (42.0-52.0); Hemoglobin 7.3 g/dL (14.0-18.0); Immature Granulocyte Percent A 1.5 % (0-0.5); Lymphocytes Absolute Auto 1.76 K/mm3 (0.9-3.2); Lymphocytes Percent Auto 27.1 % (18.3-44.2); Mean Corpuscular HGB Conc 32.7 g/dl (32-36); Mean Corpuscular Hemoglobin 31.1 pg (26-34); Mean Corpuscular Volume 94.9 fl (80-100); Mean Platelet Volume 10.5 fl (7.4-10.4); Monocytes Absolute Auto 0.5 K/mm3 (0.1-0.6); Monocytes Percent Auto 7.7 % (2.6-8.5); Neutrophils Absolute Auto 3.5 K/mm3 (1.3-6.7); Neutrophils Percent Auto 54.1 % (45.5-73.1); Platelet Count Result 210 k/mm3 (150-375); Red Blood Count 2.35 M/mm3 (4.6-6.20); Red Cell Distribution Width 16.3 % (11.5-14.5); White Blood Count 6.5 K/mm3 (4.5-10.0)
[2024-07-27 04:55] LABS: Alanine Aminotransferase 74 U/L (6-50); Albumin Level 3.1 g/dL (3.5-5.1); Alkaline Phosphatase 112 U/L (38-126); Anion Gap 5 mmol/L (4-12); Aspartate Amino Transferase 70 U/L (17-59); Bilirubin,Total 1.2 mg/dL (0.2-1.3); Blood Urea Nitrogen 12 mg/dL (9-20); Calcium 8.1 mg/dL (8.4-10.2); Carbon Dioxide 27 mmol/L (22-30); Chloride 102 mmol/L (98-107); Estimated CRCL calculation 93 ml/min; Estimated Glomerular Filt Rate > 60; Glucose 142 mg/dL (65-110); Magnesium 1.8 mg/dL (1.6-2.3); Potassium 3.7 mmol/L (3.4-5.0); Sodium 134 mmol/L (137-145)
[2024-07-27] MEDS: ACETAMINOPHEN 500 MG TABLET PO (05:08)
[2024-07-27] MEDS: metroNIDAZOLE 500 MG TABLET PO ×3 (05:08→21:06)
[2024-07-27] MEDS: TAMSULOSIN HCL 0.4 MG CAPSULE PO (08:30)
[2024-07-27] MEDS: busPIRone HCL 5 MG TABLET 15 MG PO ×2 (08:30→17:18)
[2024-07-27] MEDS: DULoxetine HCL 60 MG CAPSULE.DR PO (08:30)
[2024-07-27] MEDS: CEFDINIR 300 MG CAPSULE PO ×2 (08:31→21:05)
[2024-07-27] MEDS: PREGABALIN (*CRX) 50 MG CAPSULE 200 MG PO ×2 (08:31→21:05)
[2024-07-27] MEDS: PANTOPRAZOLE 40 MG TABLET PO (08:31)
[2024-07-27] MEDS: DOCUSATE SODIUM 100 MG CAPSULE PO ×2 (08:31→17:18)
[2024-07-27] MEDS: buPROPion HCL XL (24 HR) 150 MG TABCR 300 MG PO (08:31)
[2024-07-27] MEDS: ENOXAPARIN 40 MG/0.4 ML SYRINGE SUB-Q (08:32)
--- NOTE | 2024-07-27 10:31 | P.PNIM_ITS ---
Progress Note: A&P Assessment and Plan (1) Acute blood loss anemia: Code(s): D62 - Acute posthemorrhagic anemia Status: Acute Assessment and Plan: Patient syncopal, anemic could be related to GI bleed as he had melena/black tardy stools -could be related to sphincterotomy which was done on 07/20/2024 hb 7.3 s/p 1 unit pRBC still having melena stool awaiting GI eval (2) Melena: Code(s): K92.1 - Melena Status: Acute Assessment and Plan: As above -appreciate GI evaluation and recommendation -discussed with GI, will continue to monitor hemoglobin -patient may require EGD at some point -Protonix 40mg bid Awaiting GI eval (3) Acute kidney injury: Code(s): N17.9 - Acute kidney failure, unspecified Status: Acute Assessment and Plan: rsolved likely from hypovolemia regarding hemorrhagic shock (4) Cholelithiasis: Code(s): K80.20 - Calculus of gallbladder without cholecystitis without obstruction Status: Acute Assessment and Plan: Patient with cholelithiasis -surgery following the patient -07/25: Patient has been taken to the OR for cholecystectomy (5) Elevated liver enzymes: Code(s): R74.8 - Abnormal levels of other serum enzymes Status: Acute Assessment and Plan: resolvigng from hemorrhagic shock (6) Weakness: Code(s): R53.1 - Weakness Status: Acute Assessment and Plan: States he feels better and perked up after fluids and packed RBCs (7) Sepsis: Qualifiers: Sepsis acute organ dysfunction status: without acute organ dysfunction Sepsis type: sepsis due to unspecified organism Qualified Code(s): A41.9 - Sepsis, unspecified organism Code(s): A41.9 - Sepsis, unspecified organism Status: Acute Assessment and Plan: Hypotension multifactorial, likely related to decreased p.o. intake, GI bleed,, infection -continue cefepime, Flagyl (07/23) now on Cefidinir and Flagyl monitor (8) Syncope: Code(s): R55 - Syncope and collapse Status: Acute Assessment and Plan: Syncope could be related to generalized weakness, hypotension, vasovagal, anemia -patient is more awake, alert now hemodynamically stable -will have PT/OT evaluate the patient Plan DVT prophylaxis: SCDs, no chemoprophylaxis likely related to be GI bleed Stress ulcer prophylaxis: Protonix IV q.12 hours Code Status: Full code Subjective Date/time seen: 07/27/24 10:31 Interval history: Patient reports he has little tired. Discussed with the GI. No acute intervention from GI. Possible discharge tomorrow Review of Systems Review of Systems: 12 systems were reviewed and are negativ e except for as per HPI. All systems reviewed & are unremarkable except as noted in HPI and below Exam Narrative: General: Pleasant gentleman in no acute distress HEENT:? Pupils equal reactive, sclera is clear, moist oral mucosa Neck:? Supple, thick neck Respiratory:? Clear to auscultation bilaterally, decreased at bases, no wheezing or rales, adequate air entry Cardiac:? S1-S2 is normal, regular rate and rhythm Abdomen:? Soft, obese, tender to palpation in the right upper quadrant also tender in right lower quadrant, normoactive bowel sound Extremities:? Trace edema, palpable pedal pulses Neuro:? Patient is awake, alert, oriented, nonfocal. Able to answer questions appropriately and follows simple commands in all extremities Skin:? No skin issues Psych:? Normal mentation and affect Objective Data Vital Signs Vital Signs: Vital Signs - 24 hr 07/26/24 12:00 07/26/24 15:49 07/26/24 16:00 Temperature 98.0 F Pulse Rate 76 70 74 Respiratory Rate 20 Blood Pressure 132/45 L Pulse Oximetry 100 Oxygen Delivery Fraction of Inspired Oxygen 07/26/24 20:00 07/26/24 20:04 07/26/24 20:56 Temperature 98.1 F Pulse Rate 70 Respiratory Rate 20 Blood Pressure 148/54 H Pulse Oximetry 98 93 Oxygen Delivery Room Air Room Air Fraction of Inspired Oxygen 21 07/26/24 23:26 07/26/24 23:48 07/27/24 03:06 Temperature Pulse Rate 75 71 71 Respiratory Rate Blood Pressure Pulse Oximetry 98 97 97 Oxygen Delivery Fraction of Inspired Oxygen 07/27/24 03:12 07/27/24 08:09 Temperature 97.9 F 97.4 F L Pulse Rate 66 64 Respiratory Rate 16 20 Blood Pressure 130/57 L 137/68 Pulse Oximetry 99 97 Oxygen Delivery Fraction of Inspired Oxygen Intake/Output Intake/Output: Intake & Output 05/17/07/25/24 07/26/24 07/27/24 23:59 23:59 23:59 23:59 Intake Total 5157.2 1746.7 3765.0 240 Output Total 2400 3600 1500 Balance 2757.2 -1853.3 2265.0 240 Meds/Results Medications: Active Medications Generic Name Dose Route Start Last Admin Trade Name Freq PRN Reason Stop Dose Admin Acetaminophen 500 mg 07/25/24 10:14 07/27/24 05:08 Acetaminophen 500 Mg Tablet PO 500 mg Q6H PRN Administration Pain Rated 1-3 Amlodipine Besylate 5 mg 07/25/24 21:00 07/26/24 20:30 Amlodipine Besylate 5 Mg Tablet PO 5 mg HS OLGA Administration Atorvastatin Calcium 20 mg 07/23/24 21:00 07/26/24 20:31 Atorvastatin 20 Mg Tablet PO 20 mg HS OLGA Administration Bupropion HCl 300 mg 07/24/24 09:00 07/27/24 08:31 Bupropion Hcl Xl (24 Hr) 150 Mg Tabcr PO 300 mg QAM OLGA Administration Buspirone HCl 15 mg 07/23/24 17:00 07/27/24 08:30 Buspirone Hcl 5 Mg Tablet PO 15 mg BID OLGA Administration Carvedilol 3.125 mg 07/23/24 21:00 07/24/24 04:37 Carvedilol 3.125 Mg Tablet PO Not Given Q12HR OLGA Cefdinir 300 mg 07/26/24 21:00 07/27/24 08:31 Cefdinir 300 Mg Capsule PO 07/29/24 21:01 300 mg Q12HR OLGA Administration Clonazepam 1 mg 07/23/24 16:30 Clonazepam (*Crx) 0.5 Mg Tablet PO DAILY PRN anxiety Docusate Sodium 100 mg 07/23/24 17:00 07/27/24 08:31 Docusate Sodium 100 Mg Capsule PO 100 mg BID OLGA Administration Duloxetine HCl 60 mg 07/24/24 09:00 07/27/24 08:30 Duloxetine Hcl 60 Mg Capsule.Dr PO 60 mg DAILY OLGA Administration Enoxaparin Sodium 40 mg 07/26/24 09:00 07/27/24 08:32 Enoxaparin 40 Mg/0.4 Ml Syringe SUB-Q 40 mg DAILY OLGA Administration Ibuprofen 800 mg in 200 mls @ 400 mls/hr 05/18/25 10:14 Caldolor 800 Mg/200 Ml IVPB Q6H PRN Breakthrough Pain Rated 1-3 or NPO Labetalol HCl 20 mg 07/25/24 14:05 Labetalol Hcl Inj 100 Mg/20 Ml Vial IV PUSH Q4H PRN Hypertension Lisinopril 40 mg 07/25/24 21:00 07/26/24 20:30 Lisinopril 20 Mg Tablet PO 40 mg HS OLGA Administration Metronidazole 500 mg 07/26/24 14:00 07/27/24 05:08 Metronidazole 500 Mg Tablet PO 07/29/24 22:01 500 mg Q8HR OLGA Administration Morphine Sulfate 2 mg 07/25/24 10:14 07/26/24 20:36 Morphine Sulfate (*Crx) 2 Mg/Ml Inj IV PUSH 2 mg Q2H PRN Administration Breakthrough Pain Rated 4-6 or NPO Morphine Sulfate 4 mg 07/25/24 10:14 07/27/24 03:10 Morphine Sulfate (*Crx) 4 Mg/Ml Inj IV PUSH 4 mg Q2H PRN Administration Breakthrough Pain Rated 7-10 or NPO Naloxone HCl 0.1 mg 07/25/24 10:14 Naloxone Hcl 0.4 Mg/Ml Vial IV PUSH Q2M PRN Opiate Reversal Ondansetron HCl 4 mg 07/25/24 10:14 Ondansetron Inj 4 Mg/2 Ml Vial IV PUSH Q4H PRN Nausea And Vomiting Oxycodone/Acetaminophen 1 tablet 07/25/24 10:14 Oxycodone/Acetaminophen (*Crx) 5-325 Mg Tablet PO Q4H PRN Pain Rated 4-6 Oxycodone/Acetaminophen 1 tab 07/25/24 10:14 Oxycodone/Acetaminophen (*Crx) 10-325 Mg Tablet PO Q6H PRN Pain Rated 7-10 Pantoprazole Sodium 40 mg 07/26/24 09:00 07/27/24 08:31 Pantoprazole 40 Mg Tablet PO 40 mg QAM OLGA Administration Perflutren Lipid Microsphere 0 ml 07/24/24 14:11 Perflutren Lipid Microspheres 1.5 Ml Vial Diluted To 10 Ml Total Volume IV PUSH 07/27/24 14:11 ONCE PRN adequate visualization Protocol Pregabalin 200 mg 07/23/24 21:00 07/27/24 08:31 Pregabalin (*Crx) 50 Mg Capsule PO 200 mg Q12H OLGA Administration Tamsulosin HCl 0.4 mg 07/24/24 09:00 07/27/24 08:30 Tamsulosin Hcl 0.4 Mg Capsule PO 0.4 mg DAILY OLGA Administration Tizanidine HCl 4 mg 07/23/24 16:30 Tizanidine Hcl 4 Mg Tablet PO Q6H PRN muscle spasticity Trimethobenzamide HCl 200 mg 07/23/24 16:28 07/23/24 17:39 Trimethobenzamide Hcl 200 Mg/2 Ml Vial IM 200 mg Q6H PRN Administration Nausea And Vomiting Radiology Results: ITS Impressions Chest X-Ray 07/23/24 11:33 IMPRESSION: 1. No acute cardiopulmonary disease. Abdomen/Pelvis CT 07/23/24 12:44 IMPRESSION: 1. Age-indeterminate epiploic appendagitis along the descending colon. No other acute intra-abdominal/pelvic process. 2. Cholelithiasis. 3. Diverticulosis. 4. Prostatomegaly. Head CT 07/23/24 22:09 IMPRESSION: No acute intracranial findings. Chest/Abdomen/Pelvis CTA 07/23/24 23:15 IMPRESSION: CHEST: 1. No evidence of aneurysm or dissection. 2. No acute cardiopulmonary pathology. ABDOMEN/PELVIS: 1. No evidence of active bleeding seen. 2. Atherosclerotic changes at the origin of all branches of the aorta. 3. Cholelithiasis. 4. Small sliding hiatus hernia. 5. Other appearances are unchanged from previous examination. Labs Labs: Laboratory Results - last 24 hr 07/23/24 07/27/24 18:45 03:43 WBC 6.5 RBC 2.35 L Hgb 7.3 L Hct 22.3 L MCV 94.9 MCH 31.1 MCHC 32.7 RDW 16.3 H Plt Count 210 MPV 10.5 H Immature Gran % (Auto) 1.5 H Neut % (Auto) 54.1 Lymph % (Auto) 27.1 [place] % (Auto) 7.7 Eos % (Auto) 9.1 H Baso % (Auto) 0.5 Lymph # (Auto) 1.76 [place] # (Auto) 0.5 Eos # (Auto) 0.6 H Baso # (Auto) 0.0 Abs Immat Gran (auto) 0.10 H Absolute Neuts (auto) 3.5 Absolute Nucleated RBC 0.000 Nucleated RBC % 0.0 Sodium 134 L Potassium 3.7 Chloride 102 Carbon Dioxide 27 Anion Gap 5 BUN 12 D Creatinine 0.90 Estim Creat Clear Calc 93 Estimated GFR > 60 Glucose 142 H Calcium 8.1 L Magnesium 1.8 Total Bilirubin 1.2 AST 70 H ALT 74 H Alkaline Phosphatase 112 Total Protein 5.0 L Albumin 3.1 L Crossmatch See Detail Quality VTE Prophylaxis VTE prophylaxis: mechanical ordered Hospitalist [facility] Advance Care Plan I have confirmed that the patient's Advanced Care Plan is present, code status is documented, or surrogate decision maker is listed in patient medical record.: Yes Medication Reconciliation I have utilized all available resources to obtain, update and review the patients current medications (includes all prescriptions, OTC, herbals, cannabis, and nutritional supplements).: Yes
--- NOTE | 2024-07-27 11:14 | P.PNGS_ITS ---
Progress Note: A&P Assessment and Plan (1) Acute cholangitis due to calculus of bile duct with obstruction: Code(s): K80.33 - Calculus of bile duct with acute cholangitis with obstruction Status: Acute Assessment and Plan: Resolved after ERCP (2) Cholelithiasis with chronic cholecystitis: Qualifiers: Cholelithiasis location: gallbladder and bile duct Biliary obstruction: without biliary obstruction Qualified Code(s): K80.64 - Calculus of gallbladder and bile duct with chronic cholecystitis without obstruction Code(s): K80.10 - Calculus of gallbladder with chronic cholecystitis without obstruction Status: Acute Assessment and Plan: Patient is doing well 2 days postop laparoscopic cholecystectomy. He is tolera ting a low-fat diet. Encouraged to stick to oral pain medication for his incisional pain. The patient is surgically stable for discharge if he is medically stable. He can discharge on a low fat diet with follow-up with Dr. Haro in 2 weeks. (3) Nausea and vomiting: Qualifiers: Vomiting type: unspecified Qualified Code(s): R11.2 - Nausea with vomiting, unspecified Code(s): R11.2 - Nausea with vomiting, unspecified Status: Acute Assessment and Plan: Resolved after surgery. (4) Chronic anticoagulation: Code(s): Z79.01 - group home (current) use of anticoagulants Status: Chronic Assessment and Plan: May resume from a surgical standpoint (5) S/P ablation of atrial fibrillation: Code(s): Z98.890 - Other specified postprocedural states; Z86.79 - Personal history of other diseases of the circulatory system Status: Chronic (6) Stage 3 hepatic fibrosis: Code(s): K74.02 - Hepatic fibrosis, advanced fibrosis Status: Chronic Plan I have discussed the patient's case and plan of care with Dr. Haro. Subjective Subjective Date/Time Seen: 07/27/24 11:14 Patient reports: no new complaints, feels better, tolerating a regular diet (low fat) and afebrile Interval history: Patient doing well today. He reported having some RUQ pain near the larger incision and received Morphine overnight. He denies any nausea or vomiting. He had not tried the oral pain medication and is not sure why he was given the IV pain meds instead. No specific complaints. He is passing flatus and had his last BM yesterday, which was still dark/black per the patient. Hgb stable. Exam Const: General: comfortable and no acute distress GI: Inspection: non-distended and incision ( dry and glue intact, no erythema) GI Palp: Yes Soft to palpation, Yes Tenderness to palpation present (GI) ( Mild tenderness near right upper quadrant incision), No Guarding due to palpation present (GI) and No Rebound tenderness present Auscultation: normal bowel sounds Objective Data Vital Signs Vital Signs: Vital Signs - 24 hr 07/26/24 12:00 07/26/24 15:49 07/26/24 16:00 Temperature 98.0 F Pulse Rate 76 70 74 Respiratory Rate 20 Blood Pressure 132/45 L Pulse Oximetry 100 Oxygen Delivery Fraction of Inspired Oxygen 07/26/24 20:00 07/26/24 20:04 07/26/24 20:56 Temperature 98.1 F Pulse Rate 70 Respiratory Rate 20 Blood Pressure 148/54 H Pulse Oximetry 98 93 Oxygen Delivery Room Air Room Air Fraction of Inspired Oxygen 21 07/26/24 23:26 07/26/24 23:48 07/27/24 03:06 Temperature Pulse Rate 75 71 71 Respiratory Rate Blood Pressure Pulse Oximetry 98 97 97 Oxygen Delivery Fraction of Inspired Oxygen 07/27/24 03:12 07/27/24 08:09 Temperature 97.9 F 97.4 F L Pulse Rate 66 64 Respiratory Rate 16 20 Blood Pressure 130/57 L 137/68 Pulse Oximetry 99 97 Oxygen Delivery Fraction of Inspired Oxygen Intake/Output Intake/Output: Intake & Output 07/24/24 07/25/24 07/26/24 07/27/24 23:59 23:59 23:59 23:59 Intake Total 5157.2 1746.7 3765.0 240 Output Total 2400 3600 1500 Balance 2757.2 -1853.3 2265.0 240 Meds/Results Medications: Active Medications Generic Name Dose Route Start Last Admin Trade Name Freq PRN Reason Stop Dose Admin Acetaminophen 500 mg 07/25/24 10:14 07/27/24 05:08 Acetaminophen 500 Mg Tablet PO 500 mg Q6H PRN Administration Pain Rated 1-3 Amlodipine Besylate 5 mg 07/25/24 21:00 07/26/24 20:30 Amlodipine Besylate 5 Mg Tablet PO 5 mg HS OLGA Administration Atorvastatin Calcium 20 mg 07/23/24 21:00 07/26/24 20:31 Atorvastatin 20 Mg Tablet PO 20 mg HS OLGA Administration Bupropion HCl 300 mg 07/24/24 09:00 07/27/24 08:31 Bupropion Hcl Xl (24 Hr) 150 Mg Tabcr PO 300 mg QAM OLGA Administration Buspirone HCl 15 mg 07/23/24 17:00 07/27/24 08:30 Buspirone Hcl 5 Mg Tablet PO 15 mg BID OLGA Administration Carvedilol 3.125 mg 07/23/24 21:00 07/24/24 04:37 Carvedilol 3.125 Mg Tablet PO Not Given Q12HR OLGA Cefdinir 300 mg 07/26/24 21:00 07/27/24 08:31 Cefdinir 300 Mg Capsule PO 07/29/24 21:01 300 mg Q12HR OLGA Administration Clonazepam 1 mg 07/23/24 16:30 Clonazepam (*Crx) 0.5 Mg Tablet PO DAILY PRN anxiety Docusate Sodium 100 mg 07/23/24 17:00 07/27/24 08:31 Docusate Sodium 100 Mg Capsule PO 100 mg BID OLGA Administration Duloxetine HCl 60 mg 07/24/24 09:00 07/27/24 08:30 Duloxetine Hcl 60 Mg Capsule.Dr PO 60 mg DAILY [facility] Administration Enoxaparin Sodium 40 mg 07/26/24 09:00 07/27/24 08:32 Enoxaparin 40 Mg/0.4 Ml Syringe SUB-Q 40 mg DAILY [facility] Administration Ibuprofen 800 mg in 200 mls @ 400 mls/hr 07/25/24 10:14 Caldolor 800 Mg/200 Ml IVPB Q6H PRN Breakthrough Pain Rated 1-3 or NPO Labetalol HCl 20 mg 07/25/24 14:05 Labetalol Hcl Inj 100 Mg/20 Ml Vial IV PUSH Q4H PRN Hypertension Lisinopril 40 mg 07/25/24 21:00 07/26/24 20:30 Lisinopril 20 Mg Tablet PO 40 mg HS OLGA Administration Metronidazole 500 mg 07/26/24 14:00 07/27/24 05:08 Metronidazole 500 Mg Tablet PO 07/29/24 22:01 500 mg Q8HR OLGA Administration Morphine Sulfate 2 mg 07/25/24 10:14 07/26/24 20:36 Morphine Sulfate (*Crx) 2 Mg/Ml Inj IV PUSH 2 mg Q2H PRN Administration Breakthrough Pain Rated 4-6 or NPO Morphine Sulfate 4 mg 07/25/24 10:14 07/27/24 03:10 Morphine Sulfate (*Crx) 4 Mg/Ml Inj IV PUSH 4 mg Q2H PRN Administration Breakthrough Pain Rated 7-10 or NPO Naloxone HCl 0.1 mg 07/25/24 10:14 Naloxone Hcl 0.4 Mg/Ml Vial IV PUSH Q2M PRN Opiate Reversal Ondansetron HCl 4 mg 07/25/24 10:14 Ondansetron Inj 4 Mg/2 Ml Vial IV PUSH Q4H PRN Nausea And Vomiting Oxycodone/Acetaminophen 1 tablet 07/25/24 10:14 Oxycodone/Acetaminophen (*Crx) 5-325 Mg Tablet PO Q4H PRN Pain Rated 4-6 Oxycodone/Acetaminophen 1 tab 07/25/24 10:14 Oxycodone/Acetaminophen (*Crx) 10-325 Mg Tablet PO Q6H PRN Pain Rated 7-10 Pantoprazole Sodium 40 mg 07/26/24 09:00 07/27/24 08:31 Pantoprazole 40 Mg Tablet PO 40 mg QAM OLGA Administration Perflutren Lipid Microsphere 0 ml 07/24/24 14:11 Perflutren Lipid Microspheres 1.5 Ml Vial Diluted To 10 Ml Total Volume IV PUSH 07/27/24 14:11 ONCE PRN adequate visualization Protocol Pregabalin 200 mg 07/23/24 21:00 07/27/24 08:31 Pregabalin (*Crx) 50 Mg Capsule PO 200 mg Q12H OLGA Administration Tamsulosin HCl 0.4 mg 07/24/24 09:00 07/27/24 08:30 Tamsulosin Hcl 0.4 Mg Capsule PO 0.4 mg DAILY OLGA Administration Tizanidine HCl 4 mg 07/23/24 16:30 Tizanidine Hcl 4 Mg Tablet PO Q6H PRN muscle spasticity Trimethobenzamide HCl 200 mg 07/23/24 16:28 07/23/24 17:39 Trimethobenzamide Hcl 200 Mg/2 Ml Vial IM 200 mg Q6H PRN Administration Nausea And Vomiting Radiology Results: ITS Impressions Chest X-Ray 07/23/24 11:33 IMPRESSION: 1. No acute cardiopulmonary disease. Abdomen/Pelvis CT 07/23/24 12:44 IMPRESSION: 1. Age-indeterminate epiploic appendagitis along the descending colon. No other acute intra-abdominal/pelvic process. 2. Cholelithiasis. 3. Diverticulosis. 4. Prostatomegaly. Head CT 07/23/24 22:09 IMPRESSION: No acute intracranial findings. Chest/Abdomen/Pelvis CTA 07/23/24 23:15 IMPRESSION: CHEST: 1. No evidence of aneurysm or dissection. 2. No acute cardiopulmonary pathology. ABDOMEN/PELVIS: 1. No evidence of active bleeding seen. 2. Atherosclerotic changes at the origin of all branches of the aorta. 3. Cholelithiasis. 4. Small sliding hiatus hernia. 5. Other appearances are unchanged from previous examination. Labs Labs: Laboratory Results - last 24 hr 07/23/24 07/27/24 18:45 03:43 WBC 6.5 RBC 2.35 L Hgb 7.3 L Hct 22.3 L MCV 94.9 MCH 31.1 MCHC 32.7 RDW 16.3 H Plt Count 210 MPV 10.5 H Immature Gran % (Auto) 1.5 H Neut % (Auto) 54.1 Lymph % (Auto) 27.1 [place] % (Auto) 7.7 Eos % (Auto) 9.1 H Baso % (Auto) 0.5 Lymph # (Auto) 1.76 [place] # (Auto) 0.5 Eos # (Auto) 0.6 H Baso # (Auto) 0.0 Abs Immat Gran (auto) 0.10 H Absolute Neuts (auto) 3.5 Absolute Nucleated RBC 0.000 Nucleated RBC % 0.0 Sodium 134 L Potassium 3.7 Chloride 102 Carbon Dioxide 27 Anion Gap 5 BUN 12 D Creatinine 0.90 Estim Creat Clear Calc 93 Estimated GFR > 60 Glucose 142 H Calcium 8.1 L Magnesium 1.8 Total Bilirubin 1.2 AST 70 H ALT 74 H Alkaline Phosphatase 112 Total Protein 5.0 L Albumin 3.1 L Crossmatch See Detail
[2024-07-27] MEDS: ATORVASTATIN 20 MG TABLET PO (21:05)
[2024-07-27] MEDS: lisinopriL 20 MG TABLET 40 MG PO (21:07)
[2024-07-27] MEDS: amLODIPine BESYLATE 5 MG TABLET PO (21:07)
[2024-07-28] VITALS (11 sets, daily range): BP systolic 114–156; BP diastolic 42–91; PULSE 59–93; RESP 16–20; TEMP 35.8–36.8; O2SAT 95–100
--- OUTSIDE RECORDS SUMMARY | 2024-07-28 00:36 | XMS_ITS | Encounter Summary ---
Author Organization [facility] Address [address] [place] [address] Care Team Providers Care Box Puller Name Role Phone Unavailable Primary Care Provider Unavailabl e Encounter Details Date Type Department Care Team (Late st Contact Info) Description 01/22/2024 Lab Requisition [facility] - DermPath Lab [address] [place] [id number] Birdie Brito APRN-CNP [facility] DERMATOLOGY [address] [place] [phone] Neoplasm of uncertain behavior of skin Social History Tobacco Use Types Packs/Day Years Used Date Smoking Tobacco: Never Assessed Sex and Gender Information Value Date Recorded Sex Assigned at Not on file Legal Sex Male 6:23 PM STUDIO DIRECTOR Gender Identity Not on file Sexual Orientation Not on file documented as of this encounter Plan of Treatment Not on file documented as of this encounter Procedures Procedure Name Priority Date/Time Associated Diagnosis Comments DERMATOPATHOLOGY Routine 01/22/2024 12:0 0 AM STUDIO DIRECTOR Neoplasm of uncertain behavior of skin documented in this encounter Results * DERMATOPATHOLOGY (01/22/2024 12:00 AM STUDIO DIRECTOR) Case Report Dermatopathology Report Case: [id number] Authorizing Provider: Birdie Brito, Collected: 01/22/2024 12:00 AM POWER BARKER OPERATOR-INSPECTING SUPERVISOR Ordering Location: [facility] - Received: 01/23/2024 10:18 AM DermPath Lab Pathologist: Henrietta Carvalho MD Specimens: A) - Skin, left anterior jaw B) - Skin, left posterior jaw 2:41 PM STUDIO DIRECTOR DERMATOPATHOLOGY LABORATORY Final Diagnosis Specimen A. 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 SKIN, left posterior jaw: GRANULOMATOUS DERMATITIS CONSISTENT WITH A RUPTURED CYST OR HAIR FOLLICLE (L72.0) DERMAL FIBROSIS (L90.5) 4 2:41 PM [facility] DERMATOPATHOLOGY LABORATORY at [address] [facility] Clinical History BCC 4 2:41 PM [facility] DERMATOPATHOLOGY LABORATORY Gross Description Specimen A: [...] shave biopsy measuring 9x8x2 mm. Jar 0. 4 2:41 PM [facility] DERMATOPATHOLOGY LABORATORY Microscopic Description Specimen A. [...] is surrounding dermal fibrosis. 4 2:41 PM [facility] DERMATOPATHOLOGY LABORATORY Disclaimer An external and internal positive and negative controls are appropriate for the histochemical, immunohistochemical and immunofluorescence stain(s) in this case (if any), except where stated explicitly. The performance characteristics of the stain(s) cited in this report were developed and its performance characteristic determined by the Dermatopathology Laboratory at [facility], directed by Dr. Collin Mckeon. These tests need not be, and therefore are not, approved by the [place] Food and Drug Administration. The tests are used for clinical purposes. Billing Codes Specimen Charges Stain Charges 77097 95947 1 1 4 2:41 PM STUDIO DIRECTOR DERMATOPATHOLOGY LABORATORY Embedded Images 4 2:41 PM STUDIO DIRECTOR DERMATOPATHOLOGY LABORATORY Pathology/Cytology TISSUE SPECIMEN FROM SKIN / Unknown 01/22/2024 01/23/2024 10:18 AM STUDIO DIRECTOR Miscellaneous samples (specimen) TISSUE SPECIMEN FROM SKIN / Unknown 01/22/2024 01/23/2024 10:18 AM STUDIO DIRECTOR Birdie Brito POWER BARKER OPERATOR-INSPECTING SUPERVISOR LAB - PATHOLOGY/CY TOLOGY ORDERABLES Final Result DERMATOPATHOLOGY LABORATORY [facility] - Department of Dermatology [facility] Specialized Medicine [address] [place] [address], [address] [phone] documented in this encounter Visit Diagnoses Diagnosis Neoplasm of uncertain behavior of skin documented in this encounter
--- OUTSIDE RECORDS SUMMARY | 2024-07-28 00:36 | XMS_ITS | Clinical Summary ---
Author Organization [facility] Address [address] [facility] [place] [address] Care Team Providers Care Cushion Padder Name Role Phone Unavailable Primary Care Provider Unavailabl e Source Comments [facility],non-owned Affiliates and Associated Physician Practices is amultiple site organization consisting of ambulatory clinics and hospital sitesin [place], [place], [place] and [place]. This disclosure is being madepursuant to the Care Everywhere program and may not contain all information available regarding this patient. Last updated 17.[facility] Encounters Date Type Department Care Team Description 05/04/2024 Lab Requisition [facility] - DermPath Lab [address] [place] [address] oJse Brito MD Neoplasm of uncertain behavior of skin from Last 3 Months Social History Tobacco Use Types Packs/Day Years Used Date Smoking Tobacco: Never Assessed Sex and Gender Information Value Date Recorded Sex Assigned at Not on file Legal Sex Male 6:23 PM TACK PULLER Gender Identity Not on file Sexual Orientation [...] Comments DERMATOPATHOLOGY Routine 05/04/2024 10:0 3 AM TACK PULLER Neoplasm of uncertain behavior of skin from Last 3 Months Results * DERMATOPATHOLOGY (05/04/2024 10:03 AM TACK PULLER) Case Report Dermatopathology Report Case: [id number] Authorizing Provider: Jose Brito MD Collected: 05/04/2024 10:03 AM Ordering Location: [facility] - Received: 05/07/2024 06:38 AM DermPath Lab Pathologist: Jana Brown MD Specimen: Skin, left anterior jaw 12:56 PM TACK PULLER DERMATOPATHOLOGY LABORATORY Final Diagnosis Specimen A. SKIN, left anterior jaw: DERMAL SCAR, PRESENT AT THE BASE RESIDUAL SQUAMOUS PROLIFERATION NOT IDENTIFIED (L90.5) 12:56 PM TACK PULLER DERMATOPATHOLOGY LABORATORY at [address] [facility] Clinical History Atypical Squamous Proliferation Prior biopsy 12:56 PM TACK PULLER DERMATOPATHOLOGY LABORATORY Gross Description Specimen A: Received is one formalin filled container labeled with the patient's name and designated left anterior jaw. The specimen consists of a shave biopsy measuring 67s18t3 mm. Jar 0. 12:56 PM TACK PULLER DERMATOPATHOLOGY LABORATORY Microscopic Description Specimen A. SKIN, left anterior jaw: There are elongated blood vessels, some of which are oriented perpendicular to the skin surface, which is present at the base of the specimen. No residual squamous proliferation is identified. 5 12:56 PM [facility] DERMATOPATHOLOGY LABORATORY Disclaimer An external and internal positive and negative controls are appropriate for the histochemical, immunohistochemical and immunofluorescence stain(s) in this case (if any), except where stated explicitly. The performance characteristics of the stain(s) cited in this report were developed and its performance characteristic determined by the Dermatopathology Laboratory at [facility], directed by Dr. Collin Mckeon. These tests need not be, and therefore are not, approved by the [place] Food and Drug Administration. The tests are used for clinical purposes. Billing Codes Specimen Charges Stain Charges 81930 1 5 12:56 PM [facility] DERMATOPATHOLOGY LABORATORY Embedded Images 5 12:56 PM [facility] DERMATOPATHOLOGY LABORATORY Pathology/Cytolo gy TISSUE SPECIMEN FROM SKIN / Unknown 05/04/2024 10:03 AM TACK PULLER 05/07/2024 6:38 AM TACK PULLER Jose Brito MD LAB - PATHOLOGY/CYTOLOGY BISI GARCIA Final Result DERMATOPATHOLOGY LABORATORY [facility] - Department of Dermatology [address], [address] [phone] from Last 3 Months Insurance [place] [address] [facility] MEDICARE ADV
--- OUTSIDE RECORDS SUMMARY | 2024-07-28 00:36 | XMS_ITS | Encounter Summary ---
Author Organization [facility] Address [address] [place] [address] Care Team Providers Care Master Brewer Name Role Phone Unavailable Primary Care Provider Unavailabl e Encounter Details Date Type Department Care Team (Late st Contact Info) Description 05/04/2024 Lab Requisition [facility] - DermPath Lab [address] [place] [phone] Jose Brito MD [facility] DERMATOLOGY [address] [place] [phone] Neoplasm of uncertain behavior of skin Social History Tobacco Use Types Packs/Day Years Used Date Smoking Tobacco: Never Assessed Sex and Gender Information Value Date Recorded Sex Assigned at Not on file Legal Sex Male 6:23 PM MAINTENANCE PLANNER Gender Identity Not on file Sexual Orientation Not on file documented as of this encounter Plan of Treatment Not on file documented as of this encounter Procedures Procedure Name Priority Date/Time Associated Diagnosis Comments DERMATOPATHOLOGY Routine 05/04/2024 10:0 3 AM MAINTENANCE PLANNER Neoplasm of uncertain behavior of skin documented in this encounter Results * DERMATOPATHOLOGY (05/04/2024 10:03 AM MAINTENANCE PLANNER) Case Report Dermatopathology Report Case: [id number] Authorizing Provider: Jose Brito MD Collected: 05/04/2024 10:03 AM Ordering Location: [facility] - Received: 05/07/2024 06:38 AM DermPath Lab Pathologist: Jana Brown MD Specimen: Skin, left anterior jaw 12:56 PM MAINTENANCE PLANNER DERMATOPATHOLOGY LABORATORY Final Diagnosis Specimen A. SKIN, left anterior jaw: DERMAL SCAR, PRESENT AT THE BASE RESIDUAL SQUAMOUS PROLIFERATION NOT IDENTIFIED (L90.5) 12:[address] [facility] DERMATOPATHOLOGY LABORATORY at [address] MAINTENANCE PLANNER Clinical History Atypical Squamous Proliferation Prior biopsy 12:[address] [facility] DERMATOPATHOLOGY LABORATORY Gross Description Specimen A: Received is one formalin filled container labeled with the patient's name and designated left anterior jaw. The specimen consists of a shave biopsy measuring 31y56p9 mm. Jar 0. 12:[address] [facility] DERMATOPATHOLOGY LABORATORY Microscopic Description Specimen A. SKIN, left anterior jaw: There are elongated blood vessels, some of which are oriented perpendicular to the skin surface, which is present at the base of the specimen. No residual squamous proliferation is identified. 12:[address] [facility] DERMATOPATHOLOGY LABORATORY Disclaimer An external and internal positive and negative controls are appropriate for the histochemical, immunohistochemical and immunofluorescence stain(s) in this case (if any), except where stated explicitly. The performance characteristics of the stain(s) cited in this report were developed and its performance characteristic determined by the Dermatopathology Laboratory at [facility], directed by Dr. Collin Mckeon. These tests need not be, and therefore are not, approved by the [place] Food and Drug Administration. The tests are used for clinical purposes. Billing Codes Specimen Charges Stain Charges 57611 1 12:[address] [facility] DERMATOPATHOLOGY LABORATORY Embedded Images 12:[address] [facility] DERMATOPATHOLOGY LABORATORY Pathology/Cytolo gy TISSUE SPECIMEN FROM SKIN / Unknown 05/04/2024 10:03 AM MAINTENANCE PLANNER 05/07/2024 6:[address] [facility] us Jose Brito MD LAB - PATHOLOGY/CYTOLOGY BISI GARCIA Final Result DERMATOPATHOLOGY LABORATORY [facility] - Department of Dermatology [address] [place] [address], [facility] [phone] documented in this encounter Visit Diagnoses Diagnosis Neoplasm of uncertain behavior of skin documented in this encounter
--- OUTSIDE RECORDS SUMMARY | 2024-07-28 00:36 | XMS_ITS ---
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
--- OUTSIDE RECORDS SUMMARY | 2024-07-28 00:36 | XMS_ITS | Encounter Summary ---
Author Organization [facility] Address [address] [place] [address] Care Team Providers Care Pipe Organ Mechanic Apprentice Name Role Phone Unavailable Primary Care Provider Unavailabl e Encounter Details Date Type Department Care Team (Late st Contact Info) Description 07/22/2023 Lab Requisition [facility] - DermPath Lab [address] [place] [phone] Birdie Brito APRN-CNP [facility] DERMATOLOGY [address] [place] [address] Neoplasm of uncertain behavior of skin Social History Tobacco Use Types Packs/Day Years Used Date Smoking Tobacco: Never Assessed Sex and Gender Information Value Date Recorded Sex Assigned at Not on file Legal Sex Male 6:23 PM CONTINUOUS PROCESS COFFEE ROASTER Gender Identity Not on file Sexual Orientation Not on file documented as of this encounter Plan of Treatment Not on file documented as of this encounter Procedures Procedure Name Priority Date/Time Associated Diagnosis Comments DERMATOPATHOLOGY Routine 07/22/2023 12:0 0 AM CDT Neoplasm of uncertain behavior of skin documented in this encounter Results * DERMATOPATHOLOGY (07/22/2023 12:00 AM CDT) Case Report Dermatopathology Report Case: [id number] Authorizing Provider: Birdie Brito, Collected: 07/22/2023 12:00 AM INDUSTRIAL SECURITY ANALYSTAPPLE Ordering Location: [facility] - Received: 07/23/2023 02:55 PM DermPath Lab Pathologist: Graciela Cortes MD Specimen: Skin, left lateral mosque 12:58 PM CDT DERMATOPATHOLOGY LABORATORY Final Diagnosis Specimen A. 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 The specimen consists of a shave biopsy measuring 10x7x2 mm. Jar 0. 12:58 PM CDT DERMATOPATHOLOGY LABORATORY Microscopic Description Specimen A. SKIN, left lateral mosque: The epidermis shows parakeratosis, full thickness disorderly [...] by the Dermatopathology Laboratory at [facility], directed by Dr. Collin Mckeon. These tests need not be, and therefore are not, approved by the [place] Food and Drug Administration. The tests are used for clinical purposes. Billing Codes Specimen Charges Stain Charges 47562 1 12:58 PM CDT DERMATOPATHOLOGY LABORATORY Embedded Images 12:58 PM CDT DERMATOPATHOLOGY LABORATORY Pathology/Cytolog y TISSUE SPECIMEN FROM SKIN / Unknown 07/22/2023 07/23/2023 2:55 PM CDT us Birdie Brito INDUSTRIAL SECURITY ANALYST-ACCT EXEC LAB - PATHOLOGY/CY TOLOGY ORDERABLES Final Result DERMATOPATHOLOGY LABORATORY [facility] - Department of Dermatology [address] [place] [address], [facility] [phone] documented in this encounter Visit Diagnoses Diagnosis Neoplasm of uncertain behavior of skin documented in this encounter
--- OUTSIDE RECORDS SUMMARY | 2024-07-28 00:36 | XMS_ITS | Clinical Summary ---
Author Organization [facility] Address [address] [place] [address] Care Team Providers Care Sales Representative Publications Name Role Phone Unavailable Primary Care Provider [...]
--- OUTSIDE RECORDS SUMMARY | 2024-07-28 00:36 | XMS_ITS | Patient Health Record ---
Author Organization [facility] Address [address] [place] [address] [place] [address] Care Team Providers Care Cigarette Tipper Name Role Phone Cristina DEAN KELLY Primary Care Provider Shukri Smith Unavailable [phone] ALLERGIES Allergen (clinical drug ingredient) Drug/Non Drug [...] Active Diclofenac Sodium 1 % as directed Fiscal Officer ally Four times a day for 30 [...] calories (E66.01) Active confirmed Morbid obesity (disorder) (139090067) Problem Fear of injections and transfusions (F40.231) Active confirmed Fear of medical treatment (309075205) Problem Chronic pain syndrome (G89.4) Active confirmed Chronic vitaliy n syndrome (954559806) Problem Osteoarthritis of hip, unspecified (M16.9) Active confirmed Osteoarthritis of hip (643491060) Problem Bilateral primary osteoarthritis of knee (M17.0) Active confirmed Osteoarthritis of knee (270947407) Problem Unilateral primary osteoarthritis, right knee (M17.11) Active confirmed Primary osteoarthritis (662724314) Problem Unilateral primary osteoarthritis of first carpometacarpal joint, left hand (M18.12) Active confirmed Localized, primary osteoarthritis of the hand (096806201) Problem Primary osteoarthritis, left shoulder (M19.012) Active confirmed Localized, primary osteoarthritis of the shoulder region (464736288) Problem Primary osteoarthritis, 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) Active confirmed Localized, primary osteoarthritis of the wrist (483835690) Problem Unspecified osteoarthritis, unspecified site (M19.90) Active confirmed Osteoarthritis (969309107) Problem Pain in left shoulder (M25.512) Active confirmed Shoulder joint pain (783029394) Problem Pain in unspecified shoulder (M25.519) Active confirmed Shoulder joint pain (100843220) Problem Pain in unspecified wrist (M25.539) Active confirmed Pain in wrist (21562703) Problem Pain in unspecified hip (M25.559) Active confirmed Arthralgia of t he pelvic region and thigh (024213585) Problem Pain in right knee (M25.561) Active confirmed Pain of right knee region (finding) (449150508990390) Problem Sacroiliitis, not elsewhere classified (M46.1) Active confirmed Solitary sacroiliitis (989644442) Problem Spondylosis without myelopathy or radiculopathy, cervical region (M47.812) Active confirmed Cervical spondylosis without myelopathy (790978650) Problem Spondylosis without myelopathy or radiculopathy, cervicothoracic region (M47.813) Active confirmed Cervical spondylosis without myelopathy (668856235) Problem Spondylosis without myelopathy or radiculopathy, lumbar region (M47.816) Active confirmed Lumbosacral spondylosis without myelopathy (26236819) Problem Spondylosis without myelopathy or radiculopathy, lumbosacral region (M47.817) Active confirmed Lumbosacral spondylosis without myelopathy (disorder) (16863301) Problem Spinal stenosis, cervical region (M48.02) Active confirmed Spinal stenosis in cervical region (82432568) Problem Intervertebral disc disorders with radiculopathy, lumbar region (M51.16) Active confirmed Radiculopathy d ue to lumbar intervertebral disc disorder (877213954496946) Problem Other intervertebral disc degeneration, lumbar region (M51.36) Active confirmed Degeneration of lumbar intervertebral disc (95739773) Problem Other intervertebral disc degeneration, lumbosacral region (M51.37) Active confirmed Degeneration of lumbosacral intervertebral disc (35500820) Problem Radiculopathy, cervical region (M54.12) Active confirmed Cervical radiculopathy (27793621) Problem Radiculopathy, cervicothoracic region (M54.13) Active confirmed Cervical radiculopathy (12368212) Problem Radiculopathy, lumbar region (M54.16) Active confirmed Lumbar radiculopathy (047622656) Problem Radiculopathy, lumbosacral region (M54.17) Active confirmed Lumbosacral radiculopathy (4910141) Problem Trochanteric bursitis, unspecified hip (M70.60) Active confirmed Enthesopathy of hip region (80599112) Problem Postlaminectomy syndrome, not elsewhere classified (M96.1) Active confirmed Post-lami nectomy syndrome (04038800) Problem Osseous stenosis of neural canal of lumbar region (M99.33) Active confirmed Spinal stenosis of lumbar region (15622128) Problem Intervertebral disc stenosis of neural canal of lumbar region (M99.53) Active confirmed Spinal stenosis of lumbar region (00734242) Problem technician terminal and repeater (current) use of anticoagulants (Z79.01) Active confirmed Long-term curre nt use of anticoagulant (076840028) Problem Spinal stenosis, lumbar region with neurogenic claudication (M48.062) Active confirmed Neurogenic claudication (761309604) Problem Myalgia, other site (M79.18) Active confirmed Muscle pain (54067052) VITAL SIGNS Heart Rate 70 /min 11/17/2023 [...] Date Provider Diagnosis [facility] [address] [facility] [place] [address] 08/20/2023 Shukri Shannon Spondylosis without myelopathy or [...] intervertebral disc degeneration, lumbar region M51.36 ; technician terminal and repeater (current) use of anticoagulants Z79.01 and Chronic pain syndrome G89.4 [facility] [address] [place] [address] 08/29/2023 Shukri Stynowick Spondylosis without myelopathy or radiculopathy, lumbar region M47.816 and Spondylosis without myelopathy or radiculopathy, lumbosacral region M47.817 [facility] [address] [place] [address] 09/16/2023 Shukri Stynowick Spondylosis without myelopathy or radiculopathy, lumbar region M47.816 and Spondylosis without myelopathy or radiculopathy, lumbosacral region M47.817 [facility] [address] [place] [address] 09/30/2023 Shukri Stynowick Spondylosis without myelopathy or [...] intervertebral disc degeneration, lumbar region M51.36 ; technician terminal and repeater (current) use of anticoagulants Z79.01 and Chronic pain syndrome G89.4 [facility] [address] [place] [address] 10/15/2023 Shukri Stynowick Spondylosis without myelopathy or radiculopathy, lumbar region M47.816 and Spondylosis without myelopathy or radiculopathy, lumbosacral region M47.817 [facility] [address] [place] [address] [place] [address] 10/16/2023 Shukri Shannon [facility] [address] [place] [address] [place] [address] 2023 Shukri Shannon [facility] [address] [place] [address] [place] [address] 11/17/2023 Shukri Shannon Spondylosis without myelopathy or [...] intervertebral disc degeneration, lumbar region M51.36 ; [facility] (current) use of anticoagulants Z79.01 and Chronic pain syndrome G89.4 [facility] [address] [place] [address] 12/17/2023 Shukri Shannon ASSESSMENTS Encounter Date Diagnosis Assessment Notes Treatment Notes Treatment Clinical Notes 08/29/2023 Spondylosis without myelopathy or radiculopathy, lumbar [...] is agreeable to proceeding at this time. 11/17/2023 Unilateral primary osteoarthritis of first [...] radiculopathy, cervical region (ICD-10 - M47.812) 09/30/2023 Postlaminectomy syndrome, not elsewhere classified (ICD-10 - M96.1) 11/17/2023 Postlaminectomy syndrome, not elsewhere classified (ICD-10 - M96.1) 08/20/2023 Postlaminectomy syndrome, not elsewhere classified (ICD-10 - M96.1) 08/20/2023 Radiculopathy, lumba r region (ICD-10 - M54.16) 11/17/2023 Radiculopathy, lumba r region (ICD-10 - M54.16) 09/30/2023 Radiculopathy, lumba r region (ICD-10 - M54.16) 09/30/2023 Radiculopathy, lumbosacral region (ICD-10 - M54.17) 11/17/2023 Radiculopathy, lumbosacral region (ICD-10 - M54.17) 08/20/2023 Radiculopathy, lumbosacral region (ICD-10 - M54.17) 08/20/2023 Unilateral primary osteoarthritis, right knee (ICD-10 - M17.11) 09/30/2023 Unilateral primary osteoarthritis, right knee (ICD-10 - M17.11) 11/17/2023 Unilateral primary osteoarthritis, right knee (ICD-10 - M17.11) 09/30/2023 Radiculopathy, cervical region (ICD-10 - M54.12) 11/17/2023 Radiculopathy, cervical region (ICD-10 - M54.12) 08/20/2023 Radiculopathy, cervical region (ICD-10 - M54.12) 08/20/2023 Spondylosis without myelopathy or radiculopathy, cervicothoracic region (ICD-10 - M47.813) 09/30/2023 Spondylosis without myelopathy or radiculopathy, cervicothoracic region (ICD-10 - M47.813) 11/17/2023 Spondylosis without myelopathy or radiculopathy, cervicothoracic region (ICD-10 - M47.813) 09/30/2023 Radiculopathy, cervicothoracic region (ICD-10 - M54.13) 11/17/2023 Radiculopathy, cervicothoracic region (ICD-10 - M54.13) 08/20/2023 Radiculopathy, cervicothoracic region (ICD-10 - M54.13) 11/17/2023 Spinal stenosis, cervical region (ICD-10 - M48.02) 08/20/2023 Spinal stenosis, cervical region (ICD-10 - M48.02) 09/30/2023 Spinal stenosis, cervical region (ICD-10 - M48.02) 09/30/2023 Other intervertebral disc degeneration, lumbar region (ICD-10 - M51.36) 08/20/2023 Other intervertebral disc degeneration, lumbar region (ICD-10 - M51.36) 11/17/2023 Other intervertebral disc degeneration, lumbar region (ICD-10 - M51.36) 11/17/2023 technician terminal and repeater (current) use of anticoagulants (ICD-10 - Z79.01) 09/30/2023 FPC (current) use of anticoagulants (ICD-10 - Z79.01) [...] to notify his primary care physician and/or biochemical engineer to obtain clearance prior to discontinuing this medication. 08/20/2023 technician terminal and repeater (current) use of anticoagulants (ICD-10 - Z79.01) [...] to notify his primary care physician and/or biochemical engineer to obtain clearance prior to discontinuing this medication. 11/17/2023 Chronic pain syndrom e (ICD-10 - [...] MRI : Cervical Spine without Contrast (7 6438) 02/04/2022 MRI : Lumbar Spine with and without Cont rast (87864) 12/10/2022 MRI : Lumbar Spine without contrast (721 48) 02/04/2022 MRI : Lumbar Spine without contrast (721 48) 04/14/2020 XRAY right shoulder 04/14/2020 [facility] Results 08/29/2021 Insurance Providers Payer Name Payer Address Payer Phone Subscriber Number Group Number Insured Name Patient Relationship to Insured Coverage Start Date Coverage End Date [employer] MEDICARE ADVANTAGE [address] [place] [address] [id number] AYLA HOLLIS Self - patient is the [...]
--- OUTSIDE RECORDS SUMMARY | 2024-07-28 00:37 | XMS_ITS | Encounter Summary ---
Author Organization [facility] Address 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 Gender Identity Not on file Sexual Orientation Not on file documented as of this encounter Plan of Treatment Upcoming Encounters Date Type Department Care Team (Late st Contact Info) Description 08/11/2024 3:15 PM CDT Office Visit [facility] HEART AND VASCULAR EP AT [facility] [address] [facility] [address] [place] [phone] Bill De Anda MD [address] [facility] [address] [place] [address] 08/18/2024 11:30 AM CDT Office Visit [facility] Primary Care - [facility] [address] [address] [place] [address] [address] 09/15/2024 11:30 AM CDT Office Visit [facility] HEART AND VASCULAR [place] [address] [address] Flo Donahue MD [address] [facility] [address] [place] [address] 09/21/2024 11:00 AM CDT Office Visit [facility] [place] [facility] Neurology [address] [facility] [address] [place] [address] Ashley Holloway, PROTEOMICS SCIENTIST [address] [facility] [address] [place] [address] 10/05/2024 1:15 PM CDT Office Visit [facility] GASTROENTEROLOGY - [address] [facility] [address] [address] [facility] [address] [place] [phone] Konrad Aburto, [facility] [address] [facility] [address] [place] [address] 11/26/2024 1:00 PM CDT Office Visit [facility] Pulmonology [facility] [address] [facility] [address] [place] [address] Silvio Avalos, [facility] [address] [place] [address] 12/27/2024 1:30 PM CDT Office Visit [facility] HEART AND VASCULAR EP AT [facility] [address] [facility] [address] [place] [address] Guerrero Lind MD [address] [facility] [address] [place] [address] 09/22/2025 11:00 AM CDT Office Visit [facility] [place] [facility] Neurology [address] [facility] [address] [place] [address] Carmine Castano MD [address] [facility] [address] [place] [address] documented as of this encounter Visit Diagnoses Not on filedocumented in this encounter Additional Health Concerns Infection Onset Date Last Indicated Resolved Time R/O C. diff 01/23/2024 01/22/2024 01/23/2024 5:28 PM MEAT GRINDER Assessment Noted Time PHQ-9 Depression Total Score: 1 01/12/20 22 12:56 PM CDT documented as of this encounter Care Teams Outsole Beveler Relationship Specialty [place] [address] [facility] [address] [place] [address] PCP - General 05/07/12 documented as of this encounter
--- OUTSIDE RECORDS SUMMARY | 2024-07-28 00:37 | XMS_ITS | Encounter Summary ---
Author Organization [facility] Address [address] [place] [address] Care Team Providers Care Legal Collector Name Role Phone Mirian Wallace MD Primary Care Provider [phone] Encounter Details Date Type Department Care Team (Latest Contact Info) Description 03/30/2024 Results Follow-Up [facility] GASTROENTEROLOGY - [address] [facility] [address] [address] [facility] [address] [place] [address] Nhan Ortiz, [address] [facility] [address] [place] [address] [place] ABDOMEN LIMITED, HEPATITIS B [...] on file Legal Sex Male 4:59 AM BED MANAGER Gender Identity Not on file Sexual Orientation Not on file documented as of this encounter Plan of Treatment Upcoming Encounters Date Type Department Care Team (Late st Contact Info) Description 08/11/2024 3:15 PM CDT Office Visit [facility] HEART AND VASCULAR EP AT [facility] [address] [facility] [address] [place] [address] Bill De Anda MD [address] [facility] [address] [place] [address] 08/18/2024 11:30 AM CDT Office Visit [facility] Primary Care - [address] [address] [place] Wallace [place] [id number] [place] [address] 09/15/2024 11:30 AM CDT Office Visit [facility] HEART AND VASCULAR - [place] [id number] [place] [address] Flo Donahue MD [address] [facility] 2014 [place] [address] 09/21/2024 11:00 AM CDT Office Visit [facility] Neurology [address] [facility] [address] [place] [address] Ashley Holloway, [facility] [address] [facility] [address] [place] [address] 10/05/2024 1:15 PM CDT Office Visit [facility] GASTROENTEROLOGY - [address] [facility] 102 [address] [facility] [address] [place] [address] Konrad Aburto, [facility] [address] [facility] [address] [place] [address] 11/26/2024 1:00 PM CDT Office Visit [facility] Pulmonology [facility] [address] [facility] [address] [place] [address] Silvio Avalos, [facility] [address] [facility] [place] [phone] 12/27/2024 1:30 PM CDT Office Visit [facility] HEART AND VASCULAR EP AT [facility] [address] [facility] [address] [place] [address] Guerrero Lind MD [address] [facility] [address] [place] [address] 09/22/2025 11:00 AM CDT Office Visit [facility] Neurology [address] [facility] [address] [place] [address] Carmine Castano MD [address] [facility] [address] [place] [address] documented as of this encounter Visit Diagnoses Not on filedocumented in this encounter Additional Health Concerns Assessment Noted Time PHQ-9 Depression Total Score: 2 08/08/19 24 3:47 PM CDT documented as of this encounter Care Teams Legal Collector Relationship Specialty Start Date End Date Rodrig[place], [place] [address] [address] PCP - General 05/07/12 documented as of this encounter
--- OUTSIDE RECORDS SUMMARY | 2024-07-28 00:37 | XMS_ITS | Encounter Summary ---
Author Organization [facility] Address [address] [place] [address] Care Team Providers Care Laminator Printed Circuit Boards Name Role Phone Mirian Wallace MD Primary Care Provider Encounter Details Date Type Department Care Team (Latest Contact Info) Description 07/27/2024 Orders Only [facility] Gastroenterology [address] [place] [address] Al Cooper MD [address] [facility] [place] [address] Elevated LFTs (Primary Dx); Obesity (BMI 35.0-39.9 without comorbidity); Moderate alcohol use disorder (CMS/HCC); Metabolic dysfunction-associat ed steatotic liver disease (MASLD) Social History Tobacco Use Types Packs/Day Years [...] on file Legal Sex Male 4:59 AM DOOR MANAGER Gender Identity Not on file Sexual Orientation Not on file documented as of this encounter Plan of Treatment Upcoming Encounters Date Type Department Care Team (Late st Contact Info) Description 08/11/2024 3:15 PM CDT Office Visit [facility] HEART AND VASCULAR EP AT [place] [address] [address] [facility] 2014 [place] [address] Bill De Anda MD [facility] S [facility] 2014 [place] [address] 08/18/2024 11:30 AM CDT Office Visit [facility] Primary Care [facility] [address] [place] [address] [place] [address] [place] [address] 09/15/2024 11:30 AM CDT Office Visit [facility] HEART AND VASCULAR - [address] [address] Flo Donahue MD [address] [facility] 2014 [place] [address] 09/21/2024 11:00 AM CDT Office Visit [facility] Neurology [address] [facility] [address] [place] [address] Ashley Holloway, [facility] [address] [facility] [address] [place] [address] 10/05/2024 1:15 PM CDT Office Visit [facility] GASTROENTEROLOGY - [address] [facility] 102 [address] [facility] 102 [place] [address] Konrad Aburto, [facility] [address] [facility] 102 [place] [address] 11/26/2024 1:00 PM CDT Office Visit [facility] Pulmonology [facility] [address] [facility] [address] [place] [address] Silvio Avalos, [facility] [address] [place] [address] 12/27/2024 1:30 PM CDT Office Visit [facility] HEART AND VASCULAR EP AT [place] [address] [facility] [address] [place] [address] Guerrero Lind MD [address] [facility] [address] [place] [address] 09/22/2025 11:00 AM CDT Office Visit [facility] Neurology [address] [facility] [address] [place] [address] Carmien Castano MD [address] [facility] [address] [place] [address] documented as of this encounter Procedures Procedure Name Priority Date/Time Associated Diagnosis Comments US ELASTOGRAPHY Routine 07/13/2024 Elevated LFTs Obesity (BMI 35.0-39.9 without comorbidity) Moderate alcohol use disorder (CMS/HCC) Metabolic dysfunction-associated steatotic liver disease (MASLD) documented in this encounter Results * US ELASTOGRAPHY (07/13/2024) Anatomical Region Laterality Modality Abdomen Ultrasound us Al Cooper MD US ORDERABLES Final Result documented in this encounter Visit Diagnoses Diagnosis Elevated LFTs- Primary Other abnormal blood chemistry Obesity (BMI 35.0-39.9 without comorbidity) Obesity, unspecified Moderate alcohol use disorder (CMS/HCC) Metabolic dysfunction-associated steatotic liver disease (MASLD) documented in this encounter Care Teams Laminator Printed Circuit Boards Relationship Specialty Start Date [place] [address] [place] [address] PCP - General 05/07/12 documented as of this encounter
--- OUTSIDE RECORDS SUMMARY | 2024-07-28 00:37 | XMS_ITS | Encounter Summary ---
Author Organization [facility] Address [address] [place] [address] Care Team Providers Care Bead Filler Name Role Phone Mirian Wallace MD Primary Care Provider [phone] Encounter Details Date Type Department Care Team (Late st Contact Info) Description 03/24/1998 Outpatient Historical [facility] Zane Renee MD [facility] [place], [place] [id number] [place], Authorized P NO ADDRESS ON FILE Sprain of lumbar region (Primary Dx) Social History Tobacco Use Types Packs/Day Years Used Date Smoking Tobacco: Never Assessed Sex and Gender Information Value Date Recorded Sex Assigned at Not on file Legal Sex Male 4:59 AM CARDIOLOGY CONSULTANT Gender Identity Not on file Sexual Orientation Not on file documented as of this encounter Plan of Treatment Upcoming Encounters Date Type Department Care Team (Late Contact Info) Description 08/11/2024 3:15 PM CDT Office Visit [facility] HEART AND VASCULAR EP [place] [address] [address] [facility] [address] [place] [address] Bill De Anda MD [facility] S [facility] 2014 [place] [address] 08/18/2024 11:30 AM CDT Office Visit [facility] Primary Care - [address] [place] [address] [place] [address] [facility] [address] [place] [address] 09/15/2024 11:30 AM CDT Office Visit [facility] HEART AND VASCULAR - [place] [address] [facility] [address] [place] [address] Flo Donahue MD [address] [facility] 2014 [place] [address] 09/21/2024 11:00 AM CDT Office Visit [facility] Neurology [facility] [address] [facility] [address] [place] [address] Ashley Holloway, [facility] [address] [facility] [address] [place] [address] 10/05/2024 1:15 PM CDT Office Visit [facility] GASTROENTEROLOGY - [address] [facility] 102 [address] [facility] 102 [place] [address] Konrad Aburto, [facility] [address] [facility] 102 [place] [address] 11/26/2024 1:00 PM CDT Office Visit [facility] Pulmonology [facility] [address] [facility] [address] [place] [address] Silvio Avalos, [facility] [address] [place] [address] 12/27/2024 1:30 PM CDT Office Visit [facility] HEART AND VASCULAR EP AT [facility] [address] [facility] 2014 [place] [address] Guerrero Lind MD [address] [facility] [address] [place] [address] 09/22/2025 11:00 AM CDT Office Visit [facility] Neurology [address] [address] [place] [address] Carmine Castano MD [address] [facility] [address] [place] [address] documented as of this encounter Visit Diagnoses Diagnosis Sprain of lumbar region- Primary documented in this encounter Additional Health Concerns Infection Onset Date Last Indicated Resolved Time C Diff Comment:10/26/15 08/08/2017-outside 60 days from last positive culture obtianed.resolved. 10/27/2015 10/27/201503/2017 3:50 PM CDT R/O COVID-19 12/10/2019 12/10/2019 12/13/2019 1:16 AM CDT COVID-19 12/11/2019 12/11/2019 01/10/2020 1:16 AM CARDIOLOGY CONSULTANT R/O C. diff 08/04/2021 08/03/2021 08/04/2021 2:45 PM CDT R/O Respiratory 05/13/2022 05/13/2022 05/14/2022 1 2:32 AM CARDIOLOGY CONSULTANT R/O GI Pathogen 05/13/2022 05/13/2022 05/14/2022 1 2:32 AM CARDIOLOGY CONSULTANT R/O C. diff 12/09/2022 12/09/2022 12/10/2022 1:06 PM CDT R/O C. diff 01/23/2024 01/22/2024 01/23/2024 5:28 PM CARDIOLOGY CONSULTANT documented as of this encounter Care Teams Bead Filler Relationship Specialty [place] [address] [facility] 100 [place] [address] PCP - General 05/07/12 documented as of this encounter
--- OUTSIDE RECORDS SUMMARY | 2024-07-28 00:37 | XMS_ITS | Continuity of Care Document ---
Author Organization [facility] Address [address] [place] [address] [address] [place] [address] Phone Care Team Providers Care Feed Management Advisor Name Role Phone Short PT, Kathleen Unavailable Unavailable Procedures Procedure Date Therapeutic Activities Neuromuscular Re-Ed Manual Therapy Therapeutic Activities Manual Therapy Hot or Cold Pack Neuromuscular Re-Ed Therapeutic Activities Neuromuscular Re-Ed Manual Therapy Neuromuscular Re-Ed Manual Therapy Hot or Cold Pack Neuromuscular Re-Ed Therapeutic Activities Manual Therapy Manual Therapy Therapeutic Activities Hot or Cold Pack Neuromuscular Re-Ed Hot or Cold Pack Therapeutic Activities Manual Therapy PT Evaluation Moderate Complexity Therapeutic Activities Therapeutic [...] Diagnoses Date Provider Providers Copied on Encounter [facility], [id number], tel:[phone] [place] No Information Mar-1 6202 2 Short Kathleen. . Referring Provider: Shukri Shannon [address], [place], [address]. tel:[phone] [facility] [address], [id number], tel:[phone] [place] No Information Mar-0 8202 2 Anusha Grimes. [address] [facility], [address], [place], [facility], [place]. tel:[phone] Referring Provider: Shukri Shannon [address], [place], [address]. tel:[phone] [facility] [address] [place] [address], [place], [place], [id number], tel:[phone] [place] No Information Mar-0 4-202 2 [place]. . Referring Provider: Shukri Shannon [address], [place], [address]. tel:[phone] [facility] [place] [address], [place], [place], [id number], tel:[phone] [place] No Information May-0 2 Schranck Cornelio. [address] [place] [address], [address], [place], [place], [facility], . tel: [phone] Referring Provider: Shukri Shannon, Boris Sw[address] A, [place], [address]. tel:[phone] [facility] [facility], [place], [place], [id number], [place] tel:[phone] [place] No Information 2 [place]. . Referring Provider: [address], [place], [address]. tel:[phone] [facility], [address] [facility], [place], [place], [id number], tel:[phone] [place] No Information 2 Anusha Grimes. [address] [place] [address], [address], [place], [facility], . tel: [phone] Referring Provider: [address], [place], [address]. tel:[phone] [facility] [facility], [place], [place], [id number], [place] tel:[phone] [place] No Information 2 Garrels Itzel. . Referring Provider: [address], [place], [address]. tel: [facility], [place], [place], [id number], [place] tel:[phone] [place] No Information 2 [place]. . Referring Provider: [address], [place], [address]. tel: [facility], [place], [place], [id number], tel:[phone] [place] No Information Sep-2 0-201 6 David Turner , [place], . [facility] [place] [address], [place], [place], [id number], tel:[phone] [place] No Information Sep-0 8-201 6 David Turner , [place], [place]. [facility] [place] [address], [place], [place], [id number], tel:[phone] [place] No Information Sep-0 6-201 6 David [place] , [place], . [facility], [address] [place] [address], [place], [place], [id number], tel:[phone] [place] Other spondylosis with myelopathy, lumbar regionLumbago with sciatica, left sideOther intervertebral disc degeneration, lumbar regionPain, unspecified Sep-0 1-201 6 David Turner , [place], . [facility], [address] [place] [address], [place], [place], [id number], tel:[phone] [place] No Information Aug-3 0-201 6 David Turner [place], [place], . Family History Family Member Type Diagnosis Age At Onset No Information Payers Payer name Insurance type Covered alliance party ID Authorbulla tirenu(s) Medicare [place] [id number] Aetna Senior Supplemental [id number] [id number] Social History Type Description Quantity Date Captured [...]
--- OUTSIDE RECORDS SUMMARY | 2024-07-28 00:37 | XMS_ITS ---
Author Organization [facility] Address [address] [facility] [place] [address] Care Team Providers Care Access Control Specialist Name Role Phone Cristina DEAN KELLY Primary Care Provider Unavaila Shkuri Nice Unavailable [phone] REASON FOR VISIT FOLLOW UP Encounters Encounter Location Date Provider Diagnosis [facility] [address] [facility] [place] [address] 2023 Shukri Shannon PLAN OF TREATMENT No Information
--- OUTSIDE RECORDS SUMMARY | 2024-07-28 00:37 | XMS_ITS | Encounter Summary ---
Author Organization [facility] Address 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 Gender Identity Not on file Sexual Orientation Not on file documented as of this encounter Plan of Treatment Upcoming Encounters Date Type Department Care Team (Late st Contact Info) Description 08/11/2024 3:15 PM CDT Office Visit [facility] HEART AND VASCULAR EP AT [address] [place] [address] Bill De Anda MD [facility] S [facility] 2014 [place] [address] 08/18/2024 11:30 AM CDT Office Visit [facility] [place] [facility] [address] [place] [address] [place] [address] [address] 09/15/2024 11:30 AM CDT Office Visit [facility] HEART AND VASCULAR - [place] XGI586 [address] [facility] 100 [place] [address] Flo Donahue MD [address] [facility] 2014 [place] [address] 09/21/2024 11:00 AM CDT Office Visit [facility] Neurology [facility] [address] [address] [facility] [address] [place] [address] Ashley Holloway, [facility] [address] [facility] [address] [place] [address] 10/05/2024 1:15 PM CDT Office Visit [facility] GASTROENTEROLOGY - [address] [facility] [address] [address] Konrad Aburto, [facility] [address] [facility] 102 [place] [address] 11/26/2024 1:00 PM CDT Office Visit [facility] [place] [facility] Pulmonology [facility] [address] [facility] [address] [place] [address] Silvio Avalos, [facility] 1603 [facility] [place] [place] [address] 12/27/2024 1:30 PM CDT Office Visit [facility] HEART AND VASCULAR EP AT [facility] [address] [facility] 2014 [place] [address] Guerrero Lind MD [address] [facility] [address] [place] [address] 09/22/2025 11:00 AM CDT Office Visit [facility] Neurology [address] [facility] [address] [place] [address] Carmine Castano MD [address] [facility] [address] [place] [address] documented as of this encounter Visit Diagnoses Diagnosis Urticaria, unspecified- Primary documented in this encounter Additional Health Concerns Infection Onset Date Last Indicated Resolved Time C Diff Comment:10/26/15 08/08/2017-outside 60 days from last positive culture obtianed.resolved. 10/27/2015 10/27/2015 06/0 03/2017 3:50 PM CDT R/O COVID-19 12/10/2019 12/10/2019 12/13/2019 1:16 AM CDT COVID-19 12/11/2019 12/11/2019 01/10/2020 1:16 AM SECURITY COORDINATOR R/O C. diff 08/04/2021 08/03/2021 08/04/2021 2:45 PM CDT R/O Respiratory 05/13/2022 05/13/2022 05/14/2022 1 2:32 AM SECURITY COORDINATOR R/O GI Pathogen 05/13/2022 05/13/2022 05/14/2022 1 2:32 AM SECURITY COORDINATOR R/O C. diff 12/09/2022 12/09/2022 12/10/2022 1:06 PM CDT R/O C. diff 01/23/2024 01/22/2024 01/23/2024 5:28 PM SECURITY COORDINATOR documented as of this encounter Care Teams Ink Grinder Relationship Specialty [place] [address] [facility] 100 [place] [address] PCP - General 05/07/12 documented as of this encounter
--- OUTSIDE RECORDS SUMMARY | 2024-07-28 00:37 | XMS_ITS ---
Author Organization [facility] Address [address] [facility] [place] [address] Care Team Providers Care Dial Screw Assembler Name Role Phone Cristina DEAN KELLY Primary Care Provider Unavaila Shukri Nice Unavailable [phone] REASON FOR VISIT FOLLOW UP Encounters Encounter Location Date Provider Diagnosis [facility] [address] [facility] [place] [address] 12/17/2023 Shukri Shannon PLAN OF TREATMENT No Information
--- OUTSIDE RECORDS SUMMARY | 2024-07-28 00:37 | XMS_ITS | Encounter Summary ---
Author Organization [facility] Address [address] [place] [address] Care Team Providers Care Media Services Coordinator Name Role Phone Mirian Wallace MD Primary Care Provider [phone] Reason for Visit * Reason Onset Date Comments Sheduling Procedure 12/18/2023 Encounter Details Date Type Department Care Team (Late st Contact Info) Description 12/18/2023 Telephone [facility] Heart and Vascular - [place] [address] [place] [address] Bill De Anda MD [address] [facility] [address] [place] [address] Sheduling Procedure Social History Tobacco [...] on file Legal 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 Gender Identity Not on file Sexual Orientation [...] Description 08/11/2024 3:15 PM CDT Office Visit [facility] HEART AND VASCULAR EP AT [address] [place] [address] Bill De Anda MD [address] [place] [address] 2014 [place] [address] 08/18/2024 11:30 AM CDT Office Visit [facility] Primary Care - [address] [address] Mirian Wallace MD [address] [place] [address] 09/15/2024 11:30 AM CDT Office Visit [facility] HEART AND VASCULAR - [address] [address] Flo Donahue MD [facility] S [facility] 2014 [place] [address] 09/21/2024 11:00 AM CDT Office Visit [facility] Neurology [address] [facility] [address] [place] [address] Ashley Holloway, [facility] [address] [facility] [address] [place] [address] 10/05/2024 1:15 PM CDT Office Visit [facility] GASTROENTEROLOGY - [address] [facility] 102 [address] [facility] 102 [place] [address] Konrad Aburto, [facility] [address] [facility] 102 [place] [address] 11/26/2024 1:00 PM CDT Office Visit [facility] Pulmonology [facility] [address] [facility] [address] [place] [address] Silvio Avalos, [facility] [address] [facility] [place] [address] 12/27/2024 1:30 PM CDT Office Visit [facility] HEART AND VASCULAR EP AT [facility] [address] [facility] [address] [place] [address] Guerrero Lind MD [address] [facility] [address] [place] [address] 09/22/2025 11:00 AM CDT Office Visit [facility] Neurology [address] [facility] [address] [place] [address] Carmine Castano MD [address] [facility] [address] [place] [address] documented as of this encounter Visit Diagnoses Not on filedocumented in this encounter Additional Health Concerns Infection Onset Date Last Indicated Resolved Time R/O C. diff 01/23/2024 01/22/2024 01/23/2024 5:28 PM TECHNICAL CABLE JOINTER Assessment Noted Time PHQ-9 Depression Total Score: 2 08/08/19 24 3:47 PM CDT documented as of this encounter Care Teams Media Services Coordinator Relationship Specialty [place] [address] [address] PCP - General 05/07/12 documented as of this encounter
--- OUTSIDE RECORDS SUMMARY | 2024-07-28 00:37 | XMS_ITS | Clinical Summary ---
Author Organization [facility] Address [address] [place] [address] Care Team Providers Care Casino Change Attendant Name Role Phone Mirian Wallace MD Primary Care Provider [phone] Allergies Active Allergy Reactions Criticality Noted Date [...] 024 Active fluticasone propionate (FLONASE) 50 mcg/spray [place], Suspension nasal inhaler Administer 1 [place] in each nostril 2 times daily. 16 Gram 5 024 Active felodipine (PLENDIL) 10 mg Extended Release 24 hour tabletIndication s:Paroxysmal atrial fibrillation (CMS/HCC),Benign hypertension,Cor onary artery disease involving [place] coronary artery of [place] heart without angina pectoris TAKE 1 TABLET(10 [...] atrial fibrillation (CMS/HCC),Candelario ry artery disease involving [place] coronary artery of [place] heart without angina pectoris Take 1 Tablet (20 mg) by mouth daily with supper. 90 Tablet 3 025 Active atorvastatin (LIPITOR) 20 mg tabletIndication s:Mixed hyperlipidemia TAKE 1 TABLET(20 MG) BY MOUTH DAILY 90 Tablet 1 025 Active lisinopriL (PRINIVIL) 40 mg tabletIndication s:Benign hypertension,Cor onary artery disease involving [place] coronary artery of [place] heart without angina pectoris TAKE 1 TABLET(40 [...] TWICE DAILY 180 Tablet 3 025 Active busPIRone (BUSPAR) 15 [...] migh t be different from the original. 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 He underwent a recent MRI - There is significant foramen stenosis. He has been having injections with some relief. Enteritis 02/21/2020 Moderate alcohol use disorder 01/07/2018 PAD (peripheral artery disease) 06/12/2017 Assessment & Plan (05/10/2020 12:19 PM COMPLIANCE OFFICER): Stable. He status post procedures, peripheral stents in both legs. Continue secondary prevention. . Coronary artery disease invo lving [place] coronary artery of [place] heart without angina pectoris 02/16/2015 Gout 11/01/2014 [...] 03/24/2024 Diarrhea 03/21/2024 03/24/2024 Forgetfulness 09/19/2023 01/14/2024 care home prescription benzodiazepine use 06/11/2019 04/19/2020 Obesity (BMI 35.0-39.9 without comorbidity) 04/30/2018 12/24/2022 Elevated liver enzymes 01/07/201802/06 Atherosclerosis with claudic ation of extremity 12/26/2016 10/29/2018 Type 2 diabetes mellitus wit h vascular disease 12/04/2016 12/24/2022 Assessment & Plan (05/10/2020 12:12 PM COMPLIANCE OFFICER): He is here today to follow up for diabetes mellitus. We discussed and reviewed the following issues Glucose control He has been following his home glucoses and weight. His last A1C is: Lab Results Component Value Date/Time HGBA1C 7.2 (H) 12/18/2016 04:36 AM QHIU1GIKJ 5.4 09/24/2019 12:46 PM Wt Readings from [...] blockage of another artery (Dr. Mcmahon) at [facility]. Type 2 diabetes mellitus without complication 12/19/19 12 02/06/2018 Bruising 02/06/2018 Encounters Date Type Department Care Team Description 07/27/2024 Orders Only [facility] ([facility]3] Gastroenterology [address] [place] [address] Al Cooper MD Elevated LFTs (Primary Dx); Obesity (BMI 35.0-39.9 without comorbidity); Moderate alcohol use disorder (CMS/HCC); Metabolic dysfunction-associa farshad steatotic liver disease (MASLD) 07/20/2024 Abstract [facility] [id number] [place] [address] [address] [place] [phone] Mirian Wallace MD 07/14/2024 11:30 AM CDT Video Visit [address] [place] [address] Rashawn Olvera DO Recurrent major depressive disorder, in full remission; Generalized anxiety disorder 07/14/2024 Abstract [facility] [id number] [place] [address] [address] [place] [phone] Mirian Wallace MD 07/13/2024 External Device Data STL ABSTRACTION Provider, Abstract 07/13/2024 External Device Data STL ABSTRACTION Provider, Abstract 07/13/2024 Abstract [facility] ([facility]3] Gastroenterology [address] [facility] [address] [place] [phone] Al Cooper MD 07/13/2024 Refill [facility] - [address] [place] [phone] Flo Donahue MD Benign hypertension 07/10/2024 Refill [facility] ([facility]3] Psychiatry [address] [place] [address] Rashawn Olvera DO Recurrent major depressive disorder, in full remission 07/08/2024 Telephone [facility]STR[facility] - [address] [facility] [address] [phone] Nhan Ortiz DO PA for Rezdiffra 07/06/2024 1:10 PM CDT Office Visit [facility] - [address] [facility] 102 [address] [facility] [address] [place] [address] Nhan Ortiz DO Elevated LFTs (Primary Dx); Obesity (BMI 35.0-39.9 without comorbidity); Moderate alcohol use disorder (CMS/HCC); Metabolic dysfunction-associa farshad steatotic liver disease (MASLD) 06/25/2024 Refill [facility] [address] [phone] Mirian Wallace MD 06/23/2024 2:30 PM CDT Office Visit [facility] EP AT [place] [address] [facility] [address] [place] [address] Bill De Anda MD Other persistent atrial fibrillation (CMS/HCC) (Primary Dx); Typical atrial flutter (CMS/HCC); Benign hypertension 06/08/2024 External Device Data STL ABSTRACTION Provider, Abstract 06/07/2024 Refill [facility] - [address] [phone] Flo Donahue MD Mixed hyperlipidemia; Benign hypertension; Coronary artery disease involving [place] coronary artery of [place] heart without angina pectoris 05/28/2024 Abstract [facility] - [address] [phone] Mirian Wallace MD 05/18/[address] [phone] Mirian Wallace MD 05/14/2024 10:30 AM COMPLIANCE OFFICER Office Visit [facility]3] Primary Care Same Day [address] [phone] Valerie Tapia FNP Liver fibrosis (Primary Dx); Generalized body aches; Other fatigue; Abnormal urine color 05/11/2024 External Device Data STL ABSTRACTION Provider, Abstract 05/11/2024 External Device Data STL ABSTRACTION Provider, Abstract 05/05/2024 Orders Only [address] [phone] Mirian Wallace MD 05/05/[address] [phone] Mirian Wallace MD from Last 3 Months Immunizations Immunization Administration Dates Next Due (ADACEL/BOOSTRIX)(10 YR UP) TDAP VACCINE, 0.5ML, IM 11/08/2017 (AREXVY)(60 YR UP) RSV, GURJIT MBINANT, PROTEIN SUBUNIT RSVPREF, ADJUVANT RECONSTITUTED, 0.5 ML, PF 01/24/2023 (PFIZER)(12 YR UP) COVID-19 VACCINE - EMERGENCY USE AUTHORIZATION, MRNA, [id number](PF) 30 MCG/0.3 ML IM SUSP 12/07/2020 (PREVNAR [...] LaJeanne Juani Alcohol abuse Sister 3 Jayshree Velez Zoie Anxiety Sister 3 Jayshree Lino Heart Attack Sister 3 Jayshree Lino Stroke Sister 3 Jayhsree Lino Anxiety Sister 4 MJ Anxiety Sister 5 LaJ Colon Cancer Neg Hx Relation Name Status Comments Melissa Styles Alive Father Tiara Maternal Grandfather Maternal Grandmother Mother Paternal Grandfather Paternal Grandmother Sister 1 MJ,BS,LJ Sister 2 Martha Gloria Alive Sister 3 Jayshree Lino Alive Sister 4 KIRA Alive Sister 5 LaBerry Alive Social History Tobacco Use Types Packs/Day [...] on file Legal Sex Male 4:59 AM COMPLIANCE OFFICER Gender Identity Not on file Sexual Orientation Not on file Last Filed Vital Signs Vital Sign Reading Time Taken Comments Blood Pressure 155/79 07/06/2024 12:32 PM CDT Pulse 72 07/06/2024 12:32 PM CDT Temperature 36.3 C (97.4 F) 07/06/2024 12:32 PM CDT Respiratory Rate 18 05/14/2024 10:09 AM COMPLIANCE OFFICER Oxygen Saturation 90% 07/06/2024 12:32 PM CDT Inhaled Oxygen Concentration - - Weight 135.6 kg (299 lb) 07/06/2024 12:32 PM CDT Height 190.5 cm (6' 3) 07/06/2024 12:32 PM CDT Body Mass Index 37.37 07/06/2024 12:32 PM CDT Plan of Treatment Upcoming Encounters Date Type Department Care Team (Late st Contact Info) Description 08/11/2024 3:15 PM CDT Office Visit [facility] EP AT [facility] [address] [facility] [address] [place] [address] Bill De Anda MD [address] [facility] [address] [place] [address] 08/18/2024 11:30 AM CDT Office Visit [facility] ([facility]3] Primary Care - [facility] [address] [address] [place] [address] [address] 09/15/2024 11:30 AM CDT Office Visit [facility] - [place] [address] [facility] 100 [place] [address] Flo Donahue MD [address] [facility][note 3] [address] [place] [address] 09/21/2024 11:00 AM CDT Office Visit [facility] Neu[facility] [address] [facility] [address] [place] [address] Ashley Holloway, [facility] [address] [facility] [address] [place] [address] 10/05/2024 1:15 PM CDT Office Visit [facility] - [address] [facility] 102 [address] [facility] [address] [place] [address] Konrad Aburto, DNP [address] [place] [phone] 11/26/2024 1:00 PM CDT Office Visit [facility]3] Pulmonology [facility] [address] [facility] [address] [address] [place] [address] Robbie Silvioagustina Levin, LENDING MANAGER [address] [place] [phone] 12/27/2024 1:30 PM CDT Office Visit [facility] EP AT [facility] [address] [facility] [address] [place] [address] Guerrero Lind MD [address] [facility] [address] [place] [address] 09/22/2025 11:00 AM CDT Office Visit [facility] Neu[facility] [address] [facility] [facility] [address] [place] [address] Carmine Castano MD [address] [facility] [address] [place] [address] Health Maintenance Due Date Last [...] season) 2023 12/07/2020, 05/30/2020, 04/19/2020 Medicare [place] ([place]) Preventative Visit/Annual Wellness Visit 03/10/2024 08/15/2023, 01/15/2022, [...] history exists Medical Devices Implanted Type Area Silk Snapper Device Identifier Shelf Expiration Date Model / Serial / Lot Vitoss Foam Pack Ba2x 5ml 9735-8359 - [id number] Implanted:Qty : 1 on 04/12/2022 by Aman Justice MD at [facility] Biological N/A: Spine Cervical Anterior NEELAM- SPINE [id number] 04/06/2023 [id number] / / [id number] Tritanium C Anterior Cervical Cage 5 Mm X 12mm X 14mm X 6 Implanted:Qty : 1 on 04/12/2022 by Aman Justice MD at [facility] Cage N/A: Spine Cervical Anterior [employer] [id number] 01/22/2027 [id number] / / [id number] Description:ID : [id number] [id number]. All Neelam cervical hardware was processed on requisition, [id number]. Tritanium Anterior Cervical Cage Implanted:Qty : 1 on 04/12/2022 by Aman Justice MD at [facility] Cage N/A: Spine Cervical Anterior NEELAM- SPINE 02/17/2023 [id number] / / [id number] Cement Bone Biomet R 1x40 [id number] - [id number] Implanted:Qty : 2 on 10/01/2021 by Ke Bhatt MD at [facility] Right: Knee [employer] 12/08/2023 [id number] / / [id number] Dev Cardiva Vascade Mvp Xl Vvcs 10-12fr 800-1012xl - [id number] Implanted:Qty : 1 on 03/08/2024 by Bill De Anda MD at [facility] Closure Device Right: Groin [employer] [id number] 12/03/2025 800-1012XL / / [id number] Dev Vns Vasc Clsr Vascade Mvp 080-816p-46i - [id number] Implanted:Qty : 1 on 03/08/2024 by Bill De Anda MD at [facility] Closure Device Left: Groin [employer] [id number] 07/20/2025 800-612C-1 0U / / [id number] 2C0O Dev Vns Vasc Clsr Vascade Mvp [id number]-[id number] - [id number] Implanted:Qty : 1 on 03/08/2024 by Bill De Anda MD at [facility] Closure Device Left: Groin [employer] [id number] 07/20/2025 800-612C-1 0U / / [id number] 2C0O Hemostatic Surgifoam Sz100 1973 - [id number] Implanted:Qty : 1 on 06/23/2020 by Aman Justice MD at [facility] Hemostatic Right: Spine Lumbar J&J- [employer] 02/03/20241973 [id number] Hemostatic Surgifoam Sz100 1973 - [id number] Implanted:Qty : 1 on 04/12/2022 by Aman Justice MD at [facility] Hemostatic N/A: Spine Cervical Anterior J&J- [employer] [id number] 12/03/2025 1974 / / [id number] Bearing Vanguard Ant Stab 10x75 399996 - [id number] Implanted:Qty : 1 on 10/01/2021 by Ke Bhatt MD at [facility] Knee Right: Knee [employer] [id number] 06/28/2023 [id number] / / [id number] Description:FRANDY BORREGO Comp Fem Vanguard Cr Interlock Rt 75mm [id number] - [id number] Implanted:Qty : 1 on 10/01/2021 by Ke Bhatt MD at [facility] Knee Right: Knee [employer] [id number] 01/02/2031 [id number] / / [id number] Description:FRANDY BORREGO Patella 3peg Series A [id number] - [id number] Implanted:Qty : 1 on 10/01/2021 by Ke Bhatt MD at [facility] Knee Right: Knee [employer] 04/05/2026 [id number] / / [id number] Description:FRANDY BORREGO Comp Tib Cocr Finned 75mm 989658 - [id number] Implanted:Qty : 1 on 10/01/2021 by Ke Bhatt MD at [facility] Knee Right: Knee [employer] 07/28/2031 [id number] / / [id number] Description:FRANDY BORREGO 40mm 2 Level Plate Implanted:Qty : 1 on 04/12/2022 by Aman Justice MD at [facility] Plate N/A: Spine Cervical Anterior NEELAM- SPINE [id number] V / STERILIZED APR 3 23 / LOAD # 8 1 12mmx4.0 Self Tapping Variable Screws Implanted:Qty : 6 on 04/12/2022 by Aman Justice MD at [facility] Screw N/A: Spine Cervical Anterior NEELAM- SPINE [id number] CA / STERILIZED APR 12 23 / LOAD #1 8 Stent Vasc Supera 6fr [id number] P6-12/17/2016 Implanted:12/2016 by Flo Donahue MD (Quantity not on file) Stent [facility] [id number] 01/07/2017 S-65-100-1 20-P6 / / [id number] Description:Prox politeal / right SFA Stent Vasc Supera 6fr [id number] P6-12/17/2016 Implanted:12/2016 by Flo Donauhe MD (Quantity not on file) [facility]ent [facility] [id number] 11/07/2017 S-65-100-1 20-P6 / / [id number] Description:right SFA Right Big Toe Titanium Procedures Procedure Name Priority Date/Time Associated Diagnosis Comments US ELASTOGRAPHY Routine 07/13/2024 Elevated LFTs Obesity (BMI 35.0-39.9 without comorbidity) Moderate alcohol use disorder (CMS/HCC) Metabolic dysfunction-associat ed steatotic liver disease (MASLD) [place] ECG ROUTINE ECG W/LEAST 12 LDS W/I&R Routine 06/23/2024 3:15 PM CDT Other persistent atrial fibrillation (CMS/HCC) POC URINALYSIS DIPSTICK AUTOMATED Routine 05/14/2024 10:42 AM COMPLIANCE OFFICER Abnormal urine color COLONOSCOPY REPORT 03/31/2024 11 :[address] ABDOMEN PELVIS WO CONTRAST Stat 12/11/2022 11:48 AM CDT Chronic diarrhea Loose bowel movement from Last 3 Months or Most Recently Relevant to Health Maintenance Results * US ELASTOGRAPHY (07/13/2024) Anatomical Region Laterality Modality Abdomen Ultrasound us Al Cooper MD US ORDERABLES Final Result * [place] ECG ROUTINE ECG W/LEAST 12 LDS W/I&R (06/23/2024 3:15 PM CDT) Narrative [facility] - 06/23/2024 3:15 PM CDT Bill De Anda MD 06/23/2024 3:16 PM Sinus rhythm with first-degree AV block at 68 bpm. AZ duration 265 ms. Procedure Note Bill De Anda MD - 06/23/2024 3:15 PM CDT Sinus rhythm with first-degree AV block at 68 bpm. AZ duration 265 ms. us Bill De Anda MD ECG ORDERABLES Final Result Performing Organization Address City/[facility]/ZIP Co de Phone Number [facility] CLIA #[id number] [address] [place] [address] * POC URINALYSIS DIPSTICK AUTOMATED (05/14/2024 10:42 AM COMPLIANCE OFFICER) COLOR UA POC Yellow Pale to Dark Yellow [facility] CLARITY UA POC Clear Clear, Other [facility] GLUCOSE UA POC Negative Negative, Normal [facility] BILIRUBIN UA POC Negative Negative [facility] KETONES UA POC Negative Negative [facility] SPECIFIC GRAVITY UA POC 1.015 1.000 - 1.030 [facility] BLOOD UA POC Negative Negative [facility] PH UA POC 7.0 5.0 - 8.0 [facility] PROTEIN UA POC Negative Negative [facility] UROBILINOGEN UA POC 0.2 <2.0 mg/dL [facility] NITRITE UA POC Negative Negative [facility] LEUKOCYTE ESTERASE UA POC Negative Negative [facility] KIT LOT NUMBER POC 402,017 [facility] KIT EXP DATE POC 10/07/2024 [facility] Urine 05/14/2024 10:4 2 AM COMPLIANCE OFFICER us Valerie Tapia LENDING MANAGER POINT OF CARE TESTING Final Re sult [facility] CLIA# [id number] [address] [facility] [address] [place] [address] * COLONOSCOPY REPORT (03/31/2024 11:33 AM COMPLIANCE OFFICER) Narrative Procedure Note Nhan Ortiz DO - 03/31/2024 11:33 AM CST [facility] Endoscopy Patient Name: Romario Bonds [...] pathology results. Procedure Code(s): --- Professional --- 78354, Colonoscopy, flexible; with removal of tumor(s), polyp(s), or other lesion(s) by snare technique 84285, 59, Colonoscopy, flexible; with biopsy, single or multiple CPT copyright 2020 [employer]. All rights reserved. The codes documented in this report are preliminary and upon power reactor operator review may be revised to meet current compliance requirements. Nhan Ortiz DO 03/31/2024 11:30:42 AM This report has been signed electronically. Number of Addenda: [id number], [place] [address] Nhan Ortiz DO GI PROCEDURE ORDERABLES Final Re sult * CT ABDOMEN PELVIS WO CONTRAST (12/11/2022 11:48 AM CDT) Anatomical Region Laterality Modality Abdomen Computed Tomogra phy 12/11/2022 11:5 0 AM CDT Impressions 12/11/2022 12:02 PM CDT IMPRESSION: 1. Epiploic appendagitis of the left colon. 2. Prostatic enlargement with prominent urinary bladder distention. 3. Cholelithiasis. DICTATION LOCATION: Location [address] [place] [address] 12/11/2022 12:02 PM CDT EXAMINATION: CT ABDOMEN [...] L5 with grade 1 anterolisthesis. Checo Carey LEAD BASED PAINT TECHNICIAN CT ORDERABLES Edited Result - Final from Last 3 Months or Most Recently Relevant to Health Maintenance Insurance RX [employer] RX Member Subscriber Plan / Payer (Ef fective 2024-Present) Name:Romario Bonds Relation to Subscriber:Self Name:Romario Bonds Payer ID:Not on file Group ID:[id number] Type:RX Medicare Part D Address: [place] Advance Directives For more information, please contact: [phone] Documents on File Type Date Recorded Patient Baker Test Expl anation Advance Directive POA 12/19/2016 2:35 [...] 11:01 AM 10/01/2021 5:07 PM Care Teams Casino Change Attendant Relationship Specialty [place] [address] [address] PCP - General 05/07/12
[2024-07-28 04:24] LABS: Hematocrit 24.2 % (42.0-52.0); Hemoglobin 7.6 g/dL (14.0-18.0); Mean Corpuscular HGB Conc 31.4 g/dl (32-36); Mean Corpuscular Hemoglobin 30.4 pg (26-34); Mean Corpuscular Volume 96.8 fl (80-100); Mean Platelet Volume 10.6 fl (7.4-10.4); Platelet Count Result 243 k/mm3 (150-375); White Blood Count 6.4 K/mm3 (4.5-10.0)
[2024-07-28 04:33] LABS: Alanine Aminotransferase 65 U/L (6-50); Albumin Level 3.3 g/dL (3.5-5.1); Alkaline Phosphatase 121 U/L (38-126); Anion Gap 3 mmol/L (4-12); Aspartate Amino Transferase 53 U/L (17-59); Bilirubin,Total 1.1 mg/dL (0.2-1.3); Blood Urea Nitrogen 9 mg/dL (9-20); Calcium 8.5 mg/dL (8.4-10.2); Carbon Dioxide 30 mmol/L (22-30); Chloride 101 mmol/L (98-107); Estimated CRCL calculation 89 ml/min; Estimated Glomerular Filt Rate > 60; Glucose 119 mg/dL (65-110); Potassium 3.9 mmol/L (3.4-5.0); Sodium 134 mmol/L (137-145)
[2024-07-28] MEDS: metroNIDAZOLE 500 MG TABLET PO ×3 (04:59→21:31)
--- NOTE | 2024-07-28 07:17 | PM.PNGS ---
Progress Note: A&P Assessment and Plan (1) Acute cholangitis due to calculus of bile duct with obstruction: Code(s): K80.33 - Calculus of bile duct with acute cholangitis with obstruction Status: Acute Assessment and Plan: Resolved. Can convert to oral antibiotics and finish 7 day course of treatment. Should not need antibiotics for longer than that. Okay to discharge from surgical standpoint (2) Cholelithiasis with chronic cholecystitis: Qualifiers: Cholelithiasis location: gallbladder and bile duct Biliary obstruction: without biliary obstruction Qualified Code(s): K80.64 - Calculus of gallbladder and bile duct with chronic cholecystitis without obstruction Code(s): K80.10 - Calculus of gallbladder with chronic cholecystitis without obstruction Status: Acute Assessment and Plan: Healing well after surgery. All wounds look good. Needs to be up walking more. (3) Nausea and vomiting: Qualifiers: Vomiting type: unspecified Qualified Code(s): R11.2 - Nausea with vomiting, unspecified Code(s): R11.2 - Nausea with vomiting, unspecified Status: Acute Assessment and Plan: Resolved after surgery. (4) Chronic anticoagulation: Code(s): Z79.01 - [facility] (current) use of anticoagulants Status: Chronic Assessment and Plan: May resume from a surgical standpoint (5) S/P ablation of atrial fibrillation: Code(s): Z98.890 - Other specified postprocedural states; Z86.79 - Personal history of other diseases of the circulatory system Status: Chronic (6) Stage 3 hepatic fibrosis: Code(s): K74.02 - Hepatic fibrosis, advanced fibrosis Status: Chronic Subjective Subjective Date/Time Seen: 07/28/24 07:17 Post Op day: 3 Patient reports: no new complaints, feels better, pain is less, tolerating a regular diet, voiding w/o difficulty, bowel movement and afebrile Exam Const: General: comfortable and awake GI: Inspection: incision (Healing well) and obesity GI Palp: Yes Soft to palpation and Yes Tenderness to palpation present (GI) (Minimal appropriate tenderness) Objective Data Vital Signs Vital Signs: Vital Signs - 24 hr 07/27/24 08:00 07/27/24 08:09 07/27/24 16:00 Temperature 36.3 C L 36.6 C Pulse Rate 64 67 Respiratory Rate 20 Blood Pressure 137/68 142/73 H Pulse Oximetry 97 99 Oxygen Delivery Room Air 07/27/24 19:43 07/27/24 19:47 07/27/24 21:10 Temperature 36.9 C Pulse Rate 71 Respiratory Rate 20 Blood Pressure 139/65 Pulse Oximetry 97 98 Oxygen Delivery Room Air Room Air 07/27/24 23:05 07/28/24 00:00 07/28/24 03:35 Temperature Pulse Rate 75 75 83 Respiratory Rate Blood Pressure Pulse Oximetry 98 98 98 Oxygen Delivery 07/28/24 04:57 Temperature 36.7 C Pulse Rate 93 Respiratory Rate 20 Blood Pressure 139/62 Pulse Oximetry 100 Oxygen Delivery Intake/Output Intake/Output: Intake & Output 07/25/24 07/26/24 07/27/24 07/28/24 23:59 23:59 23:59 23:59 Intake Total 1746.7 3765.0 970 550 Output Total 3600 1500 Balance -1853.3 2265.0 970 550 Meds/Results Medications: Active Medications Generic Name Dose Route Start Last Admin Trade Name Freq PRN Reason Stop Dose Admin Acetaminophen 500 mg 07/25/24 10:14 07/27/24 05:08 Acetaminophen 500 Mg Tablet PO 500 mg Q6H PRN Administration Pain Rated 1-3 Amlodipine Besylate 5 mg 07/25/24 21:00 07/27/24 21:07 Amlodipine Besylate 5 Mg Tablet PO 5 mg HS OLGA Administration Atorvastatin Calcium 20 mg 07/23/24 21:00 07/27/24 21:05 Atorvastatin 20 Mg Tablet PO 20 mg HS OLGA Administration Bupropion HCl 300 mg 07/24/24 09:00 07/27/24 08:31 Bupropion Hcl Xl (24 Hr) 150 Mg Tabcr PO 300 mg QAM OLGA Administration Buspirone HCl 15 mg 07/23/24 17:00 07/27/24 17:18 Buspirone Hcl 5 Mg Tablet PO 15 mg BID OLGA Administration Carvedilol 3.125 mg 07/23/24 21:00 07/24/24 04:37 Carvedilol 3.125 Mg Tablet PO Not Given Q12HR OLGA Cefdinir 300 mg 07/26/24 21:00 07/27/24 21:05 Cefdinir 300 Mg Capsule PO 07/29/24 21:01 300 mg Q12HR OLGA Administration Clonazepam 1 mg 05/16/25 16:30 Clonazepam (*Crx) 0.5 Mg Tablet PO DAILY PRN anxiety Docusate Sodium 100 mg 07/23/24 17:00 07/27/24 17:18 Docusate Sodium 100 Mg Capsule PO 100 mg BID OLGA Administration Duloxetine HCl 60 mg 07/24/24 09:00 07/27/24 08:30 Duloxetine Hcl 60 Mg Capsule.Dr PO 60 mg DAILY OLGA Administration Enoxaparin Sodium 40 mg 07/26/24 09:00 07/27/24 08:32 Enoxaparin 40 Mg/0.4 Ml Syringe SUB-Q 40 mg DAILY OLGA Administration Ibuprofen 800 mg in 200 mls @ 400 mls/hr 07/25/24 10:14 Caldolor 800 Mg/200 Ml IVPB Q6H PRN Breakthrough Pain Rated 1-3 or NPO Labetalol HCl 20 mg 07/25/24 14:05 Labetalol Hcl Inj 100 Mg/20 Ml Vial IV PUSH Q4H PRN Hypertension Lisinopril 40 mg 07/25/24 21:00 07/27/24 21:07 Lisinopril 20 Mg Tablet PO 40 mg HS OLGA Administration Metronidazole 500 mg 07/26/24 14:00 07/28/24 04:59 Metronidazole 500 Mg Tablet PO 07/29/24 22:01 500 mg Q8HR OLGA Administration Naloxone HCl 0.1 mg 07/25/24 10:14 Naloxone Hcl 0.4 Mg/Ml Vial IV PUSH Q2M PRN Opiate Reversal Ondansetron HCl 4 mg 07/25/24 10:14 Ondansetron Inj 4 Mg/2 Ml Vial IV PUSH Q4H PRN Nausea And Vomiting Oxycodone/Acetaminophen 1 tablet 07/25/24 10:14 Oxycodone/Acetaminophen (*Crx) 5-325 Mg Tablet PO Q4H PRN Pain Rated 4-6 Oxycodone/Acetaminophen 1 tab 07/25/24 10:14 Oxycodone/Acetaminophen (*Crx) 10-325 Mg Tablet PO Q6H PRN Pain Rated 7-10 Pantoprazole Sodium 40 mg 07/26/24 09:00 07/27/24 08:31 Pantoprazole 40 Mg Tablet PO 40 mg QAM OLGA Administration Pregabalin 200 mg 07/23/24 21:00 07/27/24 21:05 Pregabalin (*Crx) 50 Mg Capsule PO 200 mg Q12H OLGA Administration Tamsulosin HCl 0.4 mg 07/24/24 09:00 07/27/24 08:30 Tamsulosin Hcl 0.4 Mg Capsule PO 0.4 mg DAILY OLGA Administration Tizanidine HCl 4 mg 07/23/24 16:30 Tizanidine Hcl 4 Mg Tablet PO Q6H PRN muscle spasticity Trimethobenzamide HCl 200 mg 07/23/24 16:28 07/23/24 17:39 Trimethobenzamide Hcl 200 Mg/2 Ml Vial IM 200 mg Q6H PRN Administration Nausea And Vomiting Radiology Results: ITS Impressions Chest X-Ray 07/23/24 11:33 IMPRESSION: 1. No acute cardiopulmonary disease. Abdomen/Pelvis CT 07/23/24 12:44 IMPRESSION: 1. Age-indeterminate epiploic appendagitis along the descending colon. No other acute intra-abdominal/pelvic process. 2. Cholelithiasis. 3. Diverticulosis. 4. Prostatomegaly. Head CT 07/23/24 22:09 IMPRESSION: No acute intracranial findings. Chest/Abdomen/Pelvis CTA 07/23/24 23:15 IMPRESSION: CHEST: 1. No evidence of aneurysm or dissection. 2. No acute cardiopulmonary pathology. ABDOMEN/PELVIS: 1. No evidence of active bleeding seen. 2. Atherosclerotic changes at the origin of all branches of the aorta. 3. Cholelithiasis. 4. Small sliding hiatus hernia. 5. Other appearances are unchanged from previous examination. Labs Labs: Laboratory Results - last 24 hr 07/28/24 03:37 WBC 6.4 RBC 2.50 L Hgb 7.6 L Hct 24.2 L MCV 96.8 MCH 30.4 MCHC 31.4 L RDW 16.0 H Plt Count 243 MPV 10.6 H Sodium 134 L Potassium 3.9 Chloride 101 Carbon Dioxide 30 Anion Gap 3 L BUN 9 Creatinine 0.94 Estim Creat Clear Calc 89 Estimated GFR > 60 Glucose 119 H Calcium 8.5 Total Bilirubin 1.1 AST 53 ALT 65 H Alkaline Phosphatase 121 Total Protein 6.0 L Albumin 3.3 L
[2024-07-28] MEDS: DOCUSATE SODIUM 100 MG CAPSULE PO ×2 (08:16→17:57)
[2024-07-28] MEDS: PREGABALIN (*CRX) 50 MG CAPSULE 200 MG PO ×2 (08:17→21:31)
[2024-07-28] MEDS: busPIRone HCL 5 MG TABLET 15 MG PO ×2 (08:17→17:57)
[2024-07-28] MEDS: DULoxetine HCL 60 MG CAPSULE.DR PO (08:17)
[2024-07-28] MEDS: CEFDINIR 300 MG CAPSULE PO ×2 (08:17→21:31)
[2024-07-28] MEDS: PANTOPRAZOLE 40 MG TABLET PO (08:17)
[2024-07-28] MEDS: TAMSULOSIN HCL 0.4 MG CAPSULE PO (08:17)
[2024-07-28] MEDS: ENOXAPARIN 40 MG/0.4 ML SYRINGE SUB-Q (08:17)
[2024-07-28] MEDS: buPROPion HCL XL (24 HR) 150 MG TABCR 300 MG PO (08:17)
--- NOTE | 2024-07-28 09:57 | P.PNIM_ITS ---
Progress Note: A&P Assessment and Plan (1) Acute blood loss anemia: Code(s): D62 - Acute posthemorrhagic anemia Status: Acute Assessment and Plan: Patient syncopal, anemic could be related to GI bleed as he had melena/black tardy stools -could be related to sphincterotomy which was done on 07/20/2024 hb 7.3 s/p 1 unit pRBC still having melena stool awaiting GI eval (2) Melena: Code(s): K92.1 - Melena Status: Acute Assessment and Plan: As above -appreciate GI evaluation and recommendation -discussed with GI, will continue to monitor hemoglobin -patient may require EGD at some point -Protonix 40mg bid Awaiting GI eval (3) Acute kidney injury: Code(s): N17.9 - Acute kidney failure, unspecified Status: Acute Assessment and Plan: rsolved likely from hypovolemia regarding hemorrhagic shock (4) Cholelithiasis: Code(s): K80.20 - Calculus of gallbladder without cholecystitis without obstruction Status: Acute Assessment and Plan: Patient with cholelithiasis -surgery following the patient -07/25: Patient has been taken to the OR for cholecystectomy (5) Elevated liver enzymes: Code(s): R74.8 - Abnormal levels of other serum enzymes Status: Acute Assessment and Plan: resolvigng from hemorrhagic shock (6) Weakness: Code(s): R53.1 - Weakness Status: Acute Assessment and Plan: States he feels better and perked up after fluids and packed RBCs (7) Sepsis: Qualifiers: Sepsis type: sepsis due to unspecified organism Sepsis acute organ dysfunction status: without acute organ dysfunction Qualified Code(s): A41.9 - Sepsis, unspecified organism Code(s): A41.9 - Sepsis, unspecified organism Status: Acute Assessment and Plan: Hypotension multifactorial, likely related to decreased p.o. intake, GI bleed,, infection -continue cefepime, Flagyl (07/23) now on Cefidinir and Flagyl monitor (8) Syncope: Code(s): R55 - Syncope and collapse Status: Acute Assessment and Plan: Syncope could be related to generalized weakness, hypotension, vasovagal, anemia -patient is more awake, alert now hemodynamically stable -will have PT/OT evaluate the patient Plan DVT prophylaxis: SCDs, no chemoprophylaxis likely related to be GI bleed Stress ulcer prophylaxis: Protonix IV q.12 hours Code Status: Full code Subjective Date/time seen: 07/28/24 09:57 Interval history: Patient reports of extreme fatigue. Patient complains of bloody tarry stools. Transfused 1 unit of blood due to ongoing tiredness//bleeding and history of coronary artery disease. Review of Systems Review of Systems: 12 systems were reviewed and are negativ e except for as per HPI. All systems reviewed & are unremarkable except as noted in HPI and below Exam Narrative: General: Pleasant gentleman in no acute distress HEENT:? Pupils equal reactive, sclera is clear, moist oral mucosa Neck:? Supple, thick neck Respiratory:? Clear to auscultation bilaterally, decreased at bases, no wheezing or rales, adequate air entry Cardiac:? S1-S2 is normal, regular rate and rhythm Abdomen:? Soft, obese, tender to palpation in the right upper quadrant also tender in right lower quadrant, normoactive bowel sound Extremities:? Trace edema, palpable pedal pulses Neuro:? Patient is awake, alert, oriented, nonfocal. Able to answer questions appropriately and follows simple commands in all extremities Skin:? No skin issues Psych:? Normal mentation and affect Objective Data Vital Signs Vital Signs: Vital Signs - 24 hr 07/27/24 16:00 07/27/24 19:43 07/27/24 19:47 Temperature 97.9 F 98.4 F Pulse Rate 67 71 Respiratory Rate 20 Blood Pressure 142/73 H 139/65 Pulse Oximetry 99 97 Oxygen Delivery Room Air 07/27/24 21:10 07/27/24 23:05 07/28/24 00:00 Temperature Pulse Rate 75 75 Respiratory Rate Blood Pressure Pulse Oximetry 98 98 98 Oxygen Delivery Room Air 07/28/24 03:35 07/28/24 04:57 07/28/24 07:57 Temperature 98.0 F 98.2 F Pulse Rate 83 93 60 Respiratory Rate 20 20 Blood Pressure 139/62 116/50 L Pulse Oximetry 98 100 98 Oxygen Delivery Intake/Output Intake/Output: Intake & Output 07/25/24 07/26/24 07/27/24 07/28/24 23:59 23:59 23:59 23:59 Intake Total 1746.7 3765.0 970 790 Output Total 3600 1500 Balance -1853.3 2265.0 970 790 Meds/Results Medications: Active Medications Generic Name Dose Route Start Last Admin Trade Name Freq PRN Reason Stop Dose Admin Acetaminophen 500 mg 07/25/24 10:14 07/27/24 05:08 Acetaminophen 500 Mg Tablet PO 500 mg Q6H PRN Administration Pain Rated 1-3 Amlodipine Besylate 5 mg 07/25/24 21:00 07/27/24 21:07 Amlodipine Besylate 5 Mg Tablet PO 5 mg HS OLGA Administration Atorvastatin Calcium 20 mg 07/23/24 21:00 07/27/24 21:05 Atorvastatin 20 Mg Tablet PO 20 mg HS OLGA Administration Bupropion HCl 300 mg 07/24/24 09:00 07/28/24 08:17 Bupropion Hcl Xl (24 Hr) 150 Mg Tabcr PO 300 mg QAM OLGA Administration Buspirone HCl 15 mg 07/23/24 17:00 07/28/24 08:17 Buspirone Hcl 5 Mg Tablet PO 15 mg BID OLGA Administration Carvedilol 3.125 mg 07/23/24 21:00 07/24/24 04:37 Carvedilol 3.125 Mg Tablet PO Not Given Q12HR OLGA Cefdinir 300 mg 07/26/24 21:00 07/28/24 08:17 Cefdinir 300 Mg Capsule PO 07/29/24 21:01 300 mg Q12HR OLGA Administration Clonazepam 1 mg 07/23/24 16:30 Clonazepam (*Crx) 0.5 Mg Tablet PO DAILY PRN anxiety Docusate Sodium 100 mg 07/23/24 17:00 07/28/24 08:16 Docusate Sodium 100 Mg Capsule PO 100 mg BID OLGA Administration Duloxetine HCl 60 mg 07/24/24 09:00 07/28/24 08:17 Duloxetine Hcl 60 Mg Capsule.Dr PO 60 mg DAILY OLGA Administration Enoxaparin Sodium 40 mg 07/26/24 09:00 07/28/24 08:17 Enoxaparin 40 Mg/0.4 Ml Syringe SUB-Q 40 mg DAILY OLGA Administration Ibuprofen 800 mg in 200 mls @ 400 mls/hr 07/25/24 10:14 Caldolor 800 Mg/200 Ml IVPB Q6H PRN Breakthrough Pain Rated 1-3 or NPO Sodium Chloride 250 mls @ 30 mls/hr 07/28/24 09:27 Normal Saline Iv IV CONT 07/28/24 17:46 .Q8H20M STA Labetalol HCl 20 mg 07/25/24 14:05 Labetalol Hcl Inj 100 Mg/20 Ml Vial IV PUSH Q4H PRN Hypertension Lisinopril 40 mg 07/25/24 21:00 07/27/24 21:07 Lisinopril 20 Mg Tablet PO 40 mg HS OLGA Administration Metronidazole 500 mg 07/26/24 14:00 07/28/24 04:59 Metronidazole 500 Mg Tablet PO 07/29/24 22:01 500 mg Q8HR OLGA Administration Naloxone HCl 0.1 mg 07/25/24 10:14 Naloxone Hcl 0.4 Mg/Ml Vial IV PUSH Q2M PRN Opiate Reversal Ondansetron HCl 4 mg 07/25/24 10:14 Ondansetron Inj 4 Mg/2 Ml Vial IV PUSH Q4H PRN Nausea And Vomiting Oxycodone/Acetaminophen 1 tablet 07/25/24 10:14 Oxycodone/Acetaminophen (*Crx) 5-325 Mg Tablet PO Q4H PRN Pain Rated 4-6 Oxycodone/Acetaminophen 1 tab 07/25/24 10:14 Oxycodone/Acetaminophen (*Crx) 10-325 Mg Tablet PO Q6H PRN Pain Rated 7-10 Pantoprazole Sodium 40 mg 07/26/24 09:00 07/28/24 08:17 Pantoprazole 40 Mg Tablet PO 40 mg QAM OLGA Administration Pregabalin 200 mg 07/23/24 21:00 07/28/24 08:17 Pregabalin (*Crx) 50 Mg Capsule PO 200 mg Q12H OLGA Administration Tamsulosin HCl 0.4 mg 07/24/24 09:00 07/28/24 08:17 Tamsulosin Hcl 0.4 Mg Capsule PO 0.4 mg DAILY OLGA Administration Tizanidine HCl 4 mg 07/23/24 16:30 Tizanidine Hcl 4 Mg Tablet PO Q6H PRN muscle spasticity Trimethobenzamide HCl 200 mg 07/23/24 16:28 07/23/24 17:39 Trimethobenzamide Hcl 200 Mg/2 Ml Vial IM 200 mg Q6H PRN Administration Nausea And Vomiting Radiology Results: ITS Impressions Chest X-Ray 07/23/24 11:33 IMPRESSION: 1. No acute cardiopulmonary disease. Abdomen/Pelvis CT 07/23/24 12:44 IMPRESSION: 1. Age-indeterminate epiploic appendagitis along the descending colon. No other acute intra-abdominal/pelvic process. 2. Cholelithiasis. 3. Diverticulosis. 4. Prostatomegaly. Head CT 07/23/24 22:09 IMPRESSION: No acute intracranial findings. Chest/Abdomen/Pelvis CTA 07/23/24 23:15 IMPRESSION: CHEST: 1. No evidence of aneurysm or dissection. 2. No acute cardiopulmonary pathology. ABDOMEN/PELVIS: 1. No evidence of active bleeding seen. 2. Atherosclerotic changes at the origin of all branches of the aorta. 3. Cholelithiasis. 4. Small sliding hiatus hernia. 5. Other appearances are unchanged from previous examination. Labs Labs: Laboratory Results - last 24 hr 07/28/24 07/28/24 03:37 09:32 WBC 6.4 RBC 2.50 L Hgb 7.6 L Hct 24.2 L MCV 96.8 MCH 30.4 MCHC 31.4 L RDW 16.0 H Plt Count 243 MPV 10.6 H Sodium 134 L Potassium 3.9 Chloride 101 Carbon Dioxide 30 Anion Gap 3 L BUN 9 Creatinine 0.94 Estim Creat Clear Calc 89 Estimated GFR > 60 Glucose 119 H Calcium 8.5 Total Bilirubin 1.1 AST 53 ALT 65 H Alkaline Phosphatase 121 Total Protein 6.0 L Albumin 3.3 L Crossmatch See Detail Quality VTE Prophylaxis VTE prophylaxis: mechanical ordered Hospitalist [facility] Advance Care Plan I have confirmed that the patient's Advanced Care Plan is present, code status is documented, or surrogate decision maker is listed in patient medical record.: Yes Medication Reconciliation I have utilized all available resources to obtain, update and review the patients current medications (includes all prescriptions, OTC, herbals, cannabis, and nutritional supplements).: Yes
[2024-07-28] MEDS: TUBING, BLOOD PLUM PUMP TUBING 1 EACH XX (11:59)
[2024-07-28] MEDS: SODIUM CHLORIDE 0.9% IV 250 ML 30 ML IV CONT (11:59)
[2024-07-28 15:35] LABS: Hematocrit 25.3 % (42.0-52.0); Hemoglobin 8.2 g/dL (14.0-18.0)
[2024-07-28] MEDS: WATER FOR IRRIGATION, STERILE 500 ML BOTTLE (17:58)
--- NOTE | 2024-07-28 18:07 | P.CONONC_ITS ---
Assessment and Plan Assessment and plan (1) Acute blood loss anemia: Code(s): D62 - Acute posthemorrhagic anemia Status: Acute HPI Data of Consult Date/Time: 07/28/24 18:07 Requesting Physician: Joya Nugent MD Primary Care Provider: Mirian Wallace Consult Narrative Narrative: Romario Bonds is a 73 year old male with history of fatty liver, hypertension, gout and hyperlipidemia came into the hospital with complain of nausea vomiting. Patient was admitted to the hospital on July 17 and found to have choledocholithiasis and had ERCP done by the GI. After the discharge patient started having nausea vomiting. He came back to the hospital on July 23 and labs showed hemoglobin of 10.8. According to patient he has been having melanotic stool since the discharge from the hospital. According the patient he had EGD and colonoscopy done at [facility] in March 2024 that came back unremarkable. He was initially admitted to the ICU due to acute renal insufficiency and sepsis. Patient underwent laparoscopic cholecystectomy on July 24. His recent labs showed hemoglobin of 8.2. Other labs showed creatinine of 0.9 with GFR of more than 60. CT scan chest abdomen pelvis showed no evidence of active bleeding. 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 Sepsis Gram-positive bacteremia Cholelithiasis SIRS (systemic inflammatory response syndrome) HONORIO (obstructive sleep apnea) Balanitis Gout Hyperlipidemia HTN (hypertension) Surgical History Surgical History H/O angioplasty Family History Family History Sibling Diabetes mellitus Family history of mental disorder, Onset Age: 63 Family history of cardiovascular disease, Onset Age: 63 Acute myocardial infarction Family history of malignant neoplasm Mother Family history of mental disorder, Onset Age: 56 Other Family history of seizure disorder Social History Social History Smoking packs per day: 2 Smoking cigarettes per day: 40.0 Years smoked: 15 Smoking pack-years: 30.00 Smoking status: Former smoker Alcohol intake: current Drinks per week: 56 Alcohol use details: DRINKING LESS CURRENTLY Substance use type: does not use Do You Feel Safe in your Home?: Yes Lack of Transportation: No Lack of Food: Never True Current Housing: I Have Housing Concerned About Future Housing: No Difficulty Paying Gas/Electric Bills: No Difficulty Paying for Meds: No Currently Unemployed: No Education: Associate Degree Difficulty w/ Childcare or Family Care: No Living arrangements: with family Additional living arrangements comments: Spiritual care concerns: No Meds Home Medications and Allergies Home Medications ?Medication ?Instructions ?Recorded ?Confirmed ?Type amlodipine 5 mg tablet 5 mg PO DAILY 10/27/19 07/23/24 History bupropion HCl 300 mg 24 hr tablet, 300 mg PO QAM 10/27/19 07/23/24 History extended release clonazepam 1 mg tablet 1 mg PO DAILY PRN anxiety 10/27/19 07/23/24 History buspirone 15 mg tablet 15 mg PO BID 07/15/24 07/23/24 History evolocumab 140 mg/mL subcutaneous 140 mg subcut .every other week 07/15/24 07/23/24 History pen injector (Ramandeep Springer) furosemide 20 mg tablet 20 mg PO DAILY 07/15/24 07/23/24 History pregabalin 200 mg capsule 200 mg PO Q12H 07/15/24 07/23/24 History semaglutide 0.25 mg or 0.5 mg (2 0.25 mg subcut WEEKLY 07/15/24 07/23/24 History mg/3 mL) subcutaneous pen injector (Ozempic) sildenafil (pulm.hypertension) 20 20 mg PO PRN PRN sexual activity 07/15/24 07/23/24 History mg tablet tadalafil 5 mg tablet 5 mg PO PRN PRN sexual activity 07/15/24 07/23/24 History tamsulosin 0.4 mg capsule 0.4 mg PO DAILY 07/15/24 07/23/24 History atorvastatin 20 mg tablet 20 mg PO DAILY 07/16/24 07/23/24 History carvedilol 3.125 mg tablet 3.125 mg PO BID 07/16/24 07/23/24 History duloxetine 60 mg capsule,delayed 60 mg PO DAILY 07/16/24 07/23/24 History release felodipine 10 mg tablet,extended 10 mg PO DAILY 07/16/24 07/23/24 History release 24 hr fluticasone propionate 50 1 spray intranasal Q12H PRN nasal 07/16/24 07/23/24 History mcg/actuation nasal congestion spray,suspension lisinopril 40 mg tablet 40 mg PO DAILY 07/16/24 07/23/24 History potassium chloride 20 mEq 20 meq PO DAILY 07/16/24 07/23/24 History tablet,extended release (K-Tab) rivaroxaban 20 mg tablet 20 mg PO DAILY 07/16/24 07/23/24 History tizanidine 4 mg capsule 4 mg PO Q6H PRN muscle spasticity 07/16/24 07/23/24 History levofloxacin 750 mg tablet 750 mg PO DAILY #5 tabs 07/21/24 07/23/24 Rx metronidazole 500 mg tablet 500 mg PO Q8HR 6 days #18 tabs 07/21/24 07/23/24 Rx omeprazole 40 mg capsule,delayed 40 mg PO HS 07/22/24 07/23/24 History release oxycodone-acetaminophen 5 mg-325 0.5 - 1 tablet PO Q4H PRN pain #10 07/27/24 Rx mg tablet (Percocet) tabs Allergies Allergy/AdvReac Type Severity Reaction Status Date / Time citalopram Allergy Unknown Hives Verified 07/22/24 14:38 hydralazine Allergy Unknown Hives Verified 07/22/24 14:38 Penicillins Allergy Unknown hives Verified 07/22/24 14:38 Vital Signs Vital Signs - 24 hr 07/27/24 19:43 07/27/24 19:47 07/27/24 21:10 Temperature 36.9 C Pulse Rate 71 Respiratory Rate 20 Blood Pressure 139/65 Pulse Oximetry 97 98 Oxygen Delivery Room Air Room Air 07/27/24 23:05 07/28/24 00:00 07/28/24 03:35 Temperature Pulse Rate 75 75 83 Respiratory Rate Blood Pressure Pulse Oximetry 98 98 98 Oxygen Delivery 07/28/24 04:57 07/28/24 07:57 07/28/24 08:00 Temperature 36.7 C 36.8 C Pulse Rate 93 60 Respiratory Rate 20 20 Blood Pressure 139/62 116/50 L Pulse Oximetry 100 98 Oxygen Delivery Room Air 07/28/24 11:31 07/28/24 11:55 07/28/24 12:55 Temperature 36.8 C 36.4 C L 36.4 C Pulse Rate 65 74 59 L Respiratory Rate 18 18 20 Blood Pressure 114/42 L 150/73 H 138/63 Pulse Oximetry 96 95 97 Oxygen Delivery 07/28/24 13:31 07/28/24 16:14 Temperature 36.5 C 36.6 C Pulse Rate 71 66 Respiratory Rate 18 20 Blood Pressure 150/58 H 156/63 H Pulse Oximetry 99 97 Oxygen Delivery Exam 2 Narrative: Lungs are clear to auscultation bilaterally Cardiovascular regular rate rhythm no murmurs Abdomen soft nontender nondistended Extremities no edema Results Labs 07/28/24 15:28 07/28/24 03:37 Labs: Short CBC 07/28/24 07/28/24 Range/Units 03:37 15:28 WBC 6.4 (4.5-10.0) K/mm3 Hgb 7.6 L 8.2 L (14.0-18.0) g/dL Hct 24.2 L 25.3 L (42.0-52.0) % Plt Count 243 (150-375) k/mm3 [facility] 07/28/24 03:37 Sodium 134 L Potassium 3.9 Chloride 101 Carbon Dioxide 30 BUN 9 Creatinine 0.94 Glucose 119 H Calcium 8.5 Liver Function 07/28/24 Range/Units 03:37 Total Bilirubin 1.1 (0.2-1.3) mg/dL AST 53 (17-59) U/L ALT 65 H (6-50) U/L Alkaline Phosphatase 121 (38-126) U/L Albumin 3.3 L (3.5-5.1) g/dL Attestation Student Attestation This is a pleasant 73-year-old male with history of hypertension, hyperlipidemia and gout along with history of fatty liver found to have choledocholithiasis when he presented with nausea vomiting on July 23 and underwent ERCP. He subsequently released and came back to the hospital with nausea vomiting and found to have biliary sepsis. He underwent laparoscopic cholecystectomy on July 25. He has been complaining of melanotic stool. Patient was seen by me today along with Dr. Zacarias. Plan is to perform EGD tomorrow. Have reviewed labs that showed normal creatinine. I will order soluble transferrin receptor and iron studies along with methylmalonic acid level. I will also order LDH, direct Areli test and reticulocyte count. We will give patient iron infusion prior to the discharge. He will follow-up with me in the office. I have answered all the questions to patient's satisfaction.
--- NOTE | 2024-07-28 18:13 | P.PNGI_ITS ---
Progress Note: A&P Assessment and Plan (1) GI bleeding: Code(s): K92.2 - Gastrointestinal hemorrhage, unspecified Status: Acute Assessment and Plan: It appears the patient had a self-limiting GI bleed coincidental with the sphincterotomy, a finding consistent with prior evaluations. Ongoing post- sphincterotomy bleeding is very unlikely given the time elapsed and the absence of antiplatelet or anticoagulant agents. The current stool color may be due to residual blood, and the bright red blood noted this morning is likely from perianal sources, such as straining or hemorrhoids. Following a bedside discus elaine with [employer] Dr. Lin, transfusion is not indicated at this time. An EGD will be performed tomorrow to definitively rule out active bleeding. Subjective Date/time seen: 07/28/24 18:13 Interval history: Patient states he is having black stools, Mixed with some red blood. He shows a picture of his last stool on his phone, and is apparently dark brown, solid, [place] type 2. he has been hemodynamically stable and his hemoglobin has not been dropping. Objective Data Vital Signs Vital Signs: Vital Signs - 24 hr 07/27/24 19:43 07/27/24 19:47 07/27/24 21:10 Temperature 98.4 F Pulse Rate 71 Respiratory Rate 20 Blood Pressure 139/65 Pulse Oximetry 97 98 Oxygen Delivery Room Air Room Air 07/27/24 23:05 07/28/24 00:00 07/28/24 03:35 Temperature Pulse Rate 75 75 83 Respiratory Rate Blood Pressure Pulse Oximetry 98 98 98 Oxygen Delivery 07/28/24 04:57 07/28/24 07:57 07/28/24 08:00 Temperature 98.0 F 98.2 F Pulse Rate 93 60 Respiratory Rate 20 20 Blood Pressure 139/62 116/50 L Pulse Oximetry 100 98 Oxygen Delivery Room Air 07/28/24 11:31 07/28/24 11:55 07/28/24 12:55 Temperature 98.2 F 97.5 F L 97.6 F Pulse Rate 65 74 59 L Respiratory Rate 18 18 20 Blood Pressure 114/42 L 150/73 H 138/63 Pulse Oximetry 96 95 97 Oxygen Delivery 07/28/24 13:31 07/28/24 16:14 Temperature 97.7 F 97.8 F Pulse Rate 71 66 Respiratory Rate 18 20 Blood Pressure 150/58 H 156/63 H Pulse Oximetry 99 97 Oxygen Delivery Intake/Output Intake/Output: Intake & Output 07/25/24 07/26/24 07/27/24 07/28/24 23:59 23:59 23:59 23:59 Intake Total 1746.7 3765.0 970 2696 Output Total 3600 1500 4 Balance -1853.3 2265.0 970 2692 Meds/Results Medications: Active Medications Generic Name Dose Route Start Last Admin Trade Name Freq PRN Reason Stop Dose Admin Acetaminophen 500 mg 07/25/24 10:14 07/27/24 05:08 Acetaminophen 500 Mg Tablet PO 500 mg Q6H PRN Administration Pain Rated 1-3 Amlodipine Besylate 5 mg 07/25/24 21:00 07/27/24 21:07 Amlodipine Besylate 5 Mg Tablet PO 5 mg HS OLGA Administration Atorvastatin Calcium 20 mg 07/23/24 21:00 07/27/24 21:05 Atorvastatin 20 Mg Tablet PO 20 mg HS OLGA Administration Bupropion HCl 300 mg 07/24/24 09:00 07/28/24 08:17 Bupropion Hcl Xl (24 Hr) 150 Mg Tabcr PO 300 mg QAM OLGA Administration Buspirone HCl 15 mg 07/23/24 17:00 07/28/24 17:57 Buspirone Hcl 5 Mg Tablet PO 15 mg BID OLGA Administration Carvedilol 3.125 mg 07/23/24 21:00 07/24/24 04:37 Carvedilol 3.125 Mg Tablet PO Not Given Q12HR OLGA Cefdinir 300 mg 07/26/24 21:00 07/28/24 08:17 Cefdinir 300 Mg Capsule PO 07/29/24 21:01 300 mg Q12HR OLGA Administration Clonazepam 1 mg 07/23/24 16:30 Clonazepam (*Crx) 0.5 Mg Tablet PO DAILY PRN anxiety Docusate Sodium 100 mg 07/23/24 17:00 07/28/24 17:57 Docusate Sodium 100 Mg Capsule PO 100 mg BID OLGA Administration Duloxetine HCl 60 mg 07/24/24 09:00 07/28/24 08:17 Duloxetine Hcl 60 Mg Capsule.Dr PO 60 mg DAILY OLGA Administration Enoxaparin Sodium 40 mg 07/26/24 09:00 07/28/24 08:17 Enoxaparin 40 Mg/0.4 Ml Syringe SUB-Q 40 mg DAILY OLGA Administration Ibuprofen 800 mg in 200 mls @ 400 mls/hr 07/25/24 10:14 Caldolor 800 Mg/200 Ml IVPB Q6H PRN Breakthrough Pain Rated 1-3 or NPO Labetalol HCl 20 mg 07/25/24 14:05 Labetalol Hcl Inj 100 Mg/20 Ml Vial IV PUSH Q4H PRN Hypertension Lisinopril 40 mg 07/25/24 21:00 07/27/24 21:07 Lisinopril 20 Mg Tablet PO 40 mg HS OLGA Administration Metronidazole 500 mg 07/26/24 14:00 07/28/24 13:36 Metronidazole 500 Mg Tablet PO 07/29/24 22:01 500 mg Q8HR OLGA Administration Naloxone HCl 0.1 mg 07/25/24 10:14 Naloxone Hcl 0.4 Mg/Ml Vial IV PUSH Q2M PRN Opiate Reversal Ondansetron HCl 4 mg 07/25/24 10:14 Ondansetron Inj 4 Mg/2 Ml Vial IV PUSH Q4H PRN Nausea And Vomiting Oxycodone/Acetaminophen 1 tablet 07/25/24 10:14 Oxycodone/Acetaminophen (*Crx) 5-325 Mg Tablet PO Q4H PRN Pain Rated 4-6 Oxycodone/Acetaminophen 1 tab 07/25/24 10:14 Oxycodone/Acetaminophen (*Crx) 10-325 Mg Tablet PO Q6H PRN Pain Rated 7-10 Pantoprazole Sodium 40 mg 07/26/24 09:00 07/28/24 08:17 Pantoprazole 40 Mg Tablet PO 40 mg QAM OLGA Administration Pregabalin 200 mg 07/23/24 21:00 07/28/24 08:17 Pregabalin (*Crx) 50 Mg Capsule PO 200 mg Q12H OLGA Administration Tamsulosin HCl 0.4 mg 07/24/24 09:00 07/28/24 08:17 Tamsulosin Hcl 0.4 Mg Capsule PO 0.4 mg DAILY OLGA Administration Tizanidine HCl 4 mg 07/23/24 16:30 Tizanidine Hcl 4 Mg Tablet PO Q6H PRN muscle spasticity Trimethobenzamide HCl 200 mg 07/23/24 16:28 07/23/24 17:39 Trimethobenzamide Hcl 200 Mg/2 Ml Vial IM 200 mg Q6H PRN Administration Nausea And Vomiting Radiology Results: ITS Impressions Chest X-Ray 07/23/24 11:33 IMPRESSION: 1. No acute cardiopulmonary disease. Abdomen/Pelvis CT 07/23/24 12:44 IMPRESSION: 1. Age-indeterminate epiploic appendagitis along the descending colon. No other acute intra-abdominal/pelvic process. 2. Cholelithiasis. 3. Diverticulosis. 4. Prostatomegaly. Head CT 07/23/24 22:09 IMPRESSION: No acute intracranial findings. Chest/Abdomen/Pelvis CTA 07/23/24 23:15 IMPRESSION: CHEST: 1. No evidence of aneurysm or dissection. 2. No acute cardiopulmonary pathology. ABDOMEN/PELVIS: 1. No evidence of active bleeding seen. 2. Atherosclerotic changes at the origin of all branches of the aorta. 3. Cholelithiasis. 4. Small sliding hiatus hernia. 5. Other appearances are unchanged from previous examination. Labs Labs: Laboratory Results - last 24 hr 07/28/24 07/28/24 07/28/24 03:37 09:32 15:28 WBC 6.4 RBC 2.50 L Hgb 7.6 L 8.2 L Hct 24.2 L 25.3 L MCV 96.8 MCH 30.4 MCHC 31.4 L RDW 16.0 H Plt Count 243 MPV 10.6 H Sodium 134 L Potassium 3.9 Chloride 101 Carbon Dioxide 30 Anion Gap 3 L BUN 9 Creatinine 0.94 Estim Creat Clear Calc 89 Estimated GFR > 60 Glucose 119 H Calcium 8.5 Total Bilirubin 1.1 AST 53 ALT 65 H Alkaline Phosphatase 121 Total Protein 6.0 L Albumin 3.3 L Blood Type O Negative Antibody Screen Negative Crossmatch See Detail
[2024-07-28 18:44] LABS: Immature Reticulocyte Fraction 19.2 % (3.0-15.9); Reticulocyte Hemoglobin Conten 35.4 pg (28.2-36.6); Reticulocyte Percent 4.35 % (0.7-4.3); Reticulocytes Absolute 0.12 10^6/uL (0.02-0.10)
[2024-07-28 19:05] LABS: Lactate Dehydrogenase 112 U/L (120-246)
[2024-07-28] MEDS: ATORVASTATIN 20 MG TABLET PO (21:31)
[2024-07-28] MEDS: lisinopriL 20 MG TABLET 40 MG PO (21:31)
[2024-07-28] MEDS: amLODIPine BESYLATE 5 MG TABLET PO (21:31)
[2024-07-29] VITALS (12 sets, daily range): BP systolic 122–156; BP diastolic 65–89; PULSE 62–82; RESP 18–20; TEMP 35.7–36.8; O2SAT 97–100
[2024-07-29] MEDS: metroNIDAZOLE 500 MG TABLET PO ×3 (05:23→21:06)
[2024-07-29] MEDS: CEFDINIR 300 MG CAPSULE PO ×2 (08:41→21:06)
[2024-07-29] MEDS: DOCUSATE SODIUM 100 MG CAPSULE PO ×2 (08:41→17:15)
[2024-07-29] MEDS: busPIRone HCL 5 MG TABLET 15 MG PO ×2 (08:41→17:15)
[2024-07-29] MEDS: DULoxetine HCL 60 MG CAPSULE.DR PO (08:41)
[2024-07-29] MEDS: PREGABALIN (*CRX) 50 MG CAPSULE 200 MG PO ×2 (08:41→21:05)
[2024-07-29] MEDS: buPROPion HCL XL (24 HR) 150 MG TABCR 300 MG PO (08:41)
[2024-07-29] MEDS: TAMSULOSIN HCL 0.4 MG CAPSULE PO (08:41)
[2024-07-29] MEDS: PANTOPRAZOLE 40 MG TABLET PO (08:41)
[2024-07-29 10:59] LABS: Hematocrit 29.7 % (42.0-52.0); Hemoglobin 9.4 g/dL (14.0-18.0); Mean Corpuscular HGB Conc 31.6 g/dl (32-36); Mean Corpuscular Volume 94.9 fl (80-100); Mean Platelet Volume 10.5 fl (7.4-10.4); Platelet Count Result 299 k/mm3 (150-375); Red Blood Count 3.13 M/mm3 (4.6-6.20); Red Cell Distribution Width 17.4 % (11.5-14.5); White Blood Count 6.7 K/mm3 (4.5-10.0)
[2024-07-29 11:11] LABS: Alanine Aminotransferase 60 U/L (6-50); Albumin Level 3.8 g/dL (3.5-5.1); Alkaline Phosphatase 116 U/L (38-126); Anion Gap 9 mmol/L (4-12); Aspartate Amino Transferase 50 U/L (17-59); Bilirubin,Total 1.2 mg/dL (0.2-1.3); Blood Urea Nitrogen 9 mg/dL (9-20); Calcium 9.1 mg/dL (8.4-10.2); Carbon Dioxide 29 mmol/L (22-30); Chloride 99 mmol/L (98-107); Estimated CRCL calculation 82 ml/min; Estimated Glomerular Filt Rate > 60; Glucose 131 mg/dL (65-110); Potassium 3.8 mmol/L (3.4-5.0); Sodium 137 mmol/L (137-145)
[2024-07-29] MEDS: LACTATED RINGERS 1,000 ML 150 ML IV CONT (11:28)
--- NOTE | 2024-07-29 11:51 | WPDANESEPPF ---
Anes - Initial Pre Proc Eval Procedure: Operation Date: 07/29/24 13:00 Proposed Procedures p Esophagogastroduodenoscopy - Rikki Zacarias MD Date/Time: 07/29/24 11:51 Surgeon: Joya Nugent MD Pre Op Diagnosis: choleystitis Patient Data Age: 73 Gender: M Height: 1.91 m Weight: 132.6 kg Last Vital Signs Temp 35.9 C L 07/29/24 11:16 Pulse 65 07/29/24 11:16 Resp 20 07/29/24 11:16 BP 122/71 07/29/24 11:16 Pulse Ox 97 07/29/24 11:16 O2 Del Method Room Air 07/29/24 11:16 FiO2 21 07/26/24 20:56 Allergies Allergy/AdvReac Type Severity Reaction Status Date / Time citalopram Allergy Unknown Hives Verified 07/29/24 11:12 hydralazine Allergy Unknown Hives Verified 07/29/24 11:12 Penicillins Allergy Unknown hives Verified 07/29/24 11:12 Home Medications ?Medication ?Instructions ?Recorded ?Confirmed ?Type amlodipine 5 mg tablet 5 mg PO DAILY 10/27/19 07/23/24 History bupropion HCl 300 mg 24 hr tablet, 300 mg PO QAM 10/27/19 07/23/24 History extended release clonazepam 1 mg tablet 1 mg PO DAILY PRN anxiety 10/27/19 07/23/24 History buspirone 15 mg tablet 15 mg PO BID 07/15/24 07/23/24 History evolocumab 140 mg/mL subcutaneous 140 mg subcut .every other week 07/15/24 07/23/24 History pen injector (Repatha SureClick) furosemide 20 mg tablet 20 mg PO DAILY 07/15/24 07/23/24 History pregabalin 200 mg capsule 200 mg PO Q12H 07/15/24 07/23/24 History semaglutide 0.25 mg or 0.5 mg (2 0.25 mg subcut WEEKLY 07/15/24 07/23/24 History mg/3 mL) subcutaneous pen injector (Ozempic) sildenafil (pulm.hypertension) 20 20 mg PO PRN PRN sexual activity 07/15/24 07/23/24 History mg tablet tadalafil 5 mg tablet 5 mg PO PRN PRN sexual activity 07/15/24 07/23/24 History tamsulosin 0.4 mg capsule 0.4 mg PO DAILY 07/15/24 07/23/24 History atorvastatin 20 mg tablet 20 mg PO DAILY 07/16/24 07/23/24 History carvedilol 3.125 mg tablet 3.125 mg PO BID 07/16/24 07/23/24 History duloxetine 60 mg capsule,delayed 60 mg PO DAILY 07/16/24 07/23/24 History release felodipine 10 mg tablet,extended 10 mg PO DAILY 07/16/24 07/23/24 History release 24 hr fluticasone propionate 50 1 spray intranasal Q12H PRN nasal 07/16/24 07/23/24 History mcg/actuation nasal congestion spray,suspension lisinopril 40 mg tablet 40 mg PO DAILY 07/16/24 07/23/24 History potassium chloride 20 mEq 20 meq PO DAILY 07/16/24 07/23/24 History tablet,extended release (K-Tab) rivaroxaban 20 mg tablet 20 mg PO DAILY 07/16/24 07/23/24 History tizanidine 4 mg capsule 4 mg PO Q6H PRN muscle spasticity 07/16/24 07/23/24 History levofloxacin 750 mg tablet 750 mg PO DAILY #5 tabs 07/21/24 07/23/24 Rx metronidazole 500 mg tablet 500 mg PO Q8HR 6 days #18 tabs 07/21/24 07/23/24 Rx omeprazole 40 mg capsule,delayed 40 mg PO HS 07/22/24 07/22/24 History release oxycodone-acetaminophen 5 mg-325 0.5 - 1 tablet PO Q4H PRN pain #10 07/27/24 Rx mg tablet (Percocet) tabs Laboratory Tests 07/28/24 07/28/24 07/28/24 09:32 15:28 18:32 WBC RBC Hgb 8.2 L g/dL (14.0-18.0) Hct 25.3 L % (42.0-52.0) MCV MCH MCHC RDW Plt Count MPV Absolute Retic 0.12 H 10^6/uL (0.02-0.10) Percent Retic 4.35 H % (0.7-4.3) Immature Retic Fraction 19.2 H % (3.0-15.9) Retic Hgb Content 35.4 pg (28.2-36.6) Sodium Potassium Chloride Carbon Dioxide Anion Gap BUN Creatinine Estim Creat Clear Calc Estimated GFR Glucose Calcium Total Bilirubin AST ALT Alkaline Phosphatase Lactate Dehydrogenase 112 L U/L (120-246) Total Protein Albumin MONICO, IgG Interpret Neg MONICO, Poly Interpret Negative MONICO, Complement Interp Not Performed Crossmatch See Detail 07/29/24 10:37 WBC 6.7 K/mm3 (4.5-10.0) RBC 3.13 L M/mm3 (4.6-6.20) Hgb 9.4 L g/dL (14.0-18.0) Hct 29.7 L % (42.0-52.0) MCV 94.9 fl (80-100) MCH 30.0 pg (26-34) MCHC 31.6 L g/dl (32-36) RDW 17.4 H % (11.5-14.5) Plt Count 299 k/mm3 (150-375) MPV 10.5 H fl (7.4-10.4) Absolute Retic Percent Retic Immature Retic Fraction Retic Hgb Content Sodium 137 mmol/L (137-145) Potassium 3.8 mmol/L (3.4-5.0) Chloride 99 mmol/L (98-107) Carbon Dioxide 29 mmol/L (22-30) Anion Gap 9 mmol/L (4-12) BUN 9 mg/dL (9-20) Creatinine 1.02 mg/dL (0.7-1.3) Estim Creat Clear Calc 82 ml/min Estimated GFR > 60 (59 - ) Glucose 131 H mg/dL (65-110) Calcium 9.1 mg/dL (8.4-10.2) Total Bilirubin 1.2 mg/dL (0.2-1.3) AST 50 U/L (17-59) ALT 60 H U/L (6-50) Alkaline Phosphatase 116 U/L (38-126) Lactate Dehydrogenase Total Protein 6.0 L g/dL (6.3-8.2) Albumin 3.8 g/dL (3.5-5.1) MONICO, IgG Interpret MONICO, Poly Interpret MONICO, Complement Interp Crossmatch Patient hx anesthesia problems: none Family hx anesthesia problems: none Results Review: All pre-operative results and documents have been reviewed as part of the pre-operative evaluation. 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 Sepsis Gram-positive bacteremia Cholelithiasis SIRS (systemic inflammatory response syndrome) HONORIO (obstructive sleep apnea) Balanitis Gout Hyperlipidemia HTN (hypertension) Surgical History Surgical History H/O angioplasty Family History Family History Sibling Diabetes mellitus Family history of mental disorder, Onset Age: 63 Family history of cardiovascular disease, Onset Age: 63 Acute myocardial infarction Family history of malignant neoplasm Mother Family history of mental disorder, Onset Age: 56 Other Family history of seizure disorder Social History Social History Smoking packs per day: 2 Smoking cigarettes per day: 40.0 Years smoked: 15 Smoking pack-years: 30.00 Smoking status: Former smoker Alcohol intake: current Drinks per week: 56 Alcohol use details: DRINKING LESS CURRENTLY Substance use type: does not use Do You Feel Safe in your Home?: Yes Lack of Transportation: No Lack of Food: Never True Current Housing: I Have Housing Concerned About Future Housing: No Difficulty Paying Gas/Electric Bills: No Difficulty Paying for Meds: No Currently Unemployed: No Education: Associate Degree Difficulty w/ Childcare or Family Care: No Living arrangements: with family Additional living arrangements comments: Spiritual care concerns: No Anes - Eval Final PreProcedure Day of Procedure 07/29/24 11:51 Patient weight: obese Heart: regular rate and rhythm Lungs: clear to auscultation Airway: Mallampati scale class II Neurological: alert and oriented Last oral intake: >/= 8 hours ASA classification: IV Emergent: no Anesthetic plan: proceed Anesthesia type and monitoring: general GIVS and standard monitoring Results Review: All pre-operative results and documents have been reviewed as part of the pre-operative evaluation. Informed Consent: The patient's anesthetic plan and its attendant risks and benefits were discussed with the patient/family/POA. Questions were solicited and answers provided to the satisfaction of the patient/family/POA.
--- NOTE | 2024-07-29 12:30 | WPDGIPROGNO ---
Progress Note: A&P Assessment and Plan (1) Cholelithiasis: Code(s): K80.20 - Calculus of gallbladder without cholecystitis without obstruction Status: Acute Assessment and Plan: See EGD report. There is no active or recent bleeding. Dark stools are attributable to residual melena which should be clearing soon. Patient could be safely discharged home and resume blood thinners as needed. Follow-up with PCP. Subjective Date/time seen: 07/29/24 12:30 Objective Data Vital Signs Vital Signs: Vital Signs - 24 hr 07/28/24 12:55 07/28/24 13:31 07/28/24 16:14 Temperature 97.6 F 97.7 F 97.8 F Pulse Rate 59 L 71 66 Respiratory Rate 20 18 20 Blood Pressure 138/63 150/58 H 156/63 H Pulse Oximetry 97 99 97 Oxygen Delivery 07/28/24 22:00 07/28/24 23:02 07/29/24 02:01 Temperature 96.4 F L Pulse Rate 63 68 70 Respiratory Rate 16 Blood Pressure 117/91 H Pulse Oximetry 97 98 98 Oxygen Delivery 07/29/24 04:09 07/29/24 05:22 07/29/24 08:00 Temperature 96.2 F L Pulse Rate 75 63 Respiratory Rate 20 Blood Pressure 156/76 H Pulse Oximetry 98 100 Oxygen Delivery Room Air 07/29/24 11:16 Temperature 96.7 F L Pulse Rate 65 Respiratory Rate 20 Blood Pressure 122/71 Pulse Oximetry 97 Oxygen Delivery Room Air Intake/Output Intake/Output: Intake & Output 07/26/24 07/27/24 07/28/24 07/29/24 23:59 23:59 23:59 23:59 Intake Total 3765.0 970 2696 0 Output Total 1500 4 Balance 2265.0 970 2692 0 Meds/Results Medications: Active Medications Generic Name Dose Route Start Last Admin Trade Name Freq PRN Reason Stop Dose Admin Acetaminophen 500 mg 07/25/24 10:14 07/27/24 05:08 Acetaminophen 500 Mg Tablet PO 500 mg Q6H PRN Administration Pain Rated 1-3 Amlodipine Besylate 5 mg 07/25/24 21:00 07/28/24 21:31 Amlodipine Besylate 5 Mg Tablet PO 5 mg HS OLGA Administration Atorvastatin Calcium 20 mg 07/23/24 21:00 07/28/24 21:31 Atorvastatin 20 Mg Tablet PO 20 mg HS OLGA Administration Bupropion HCl 300 mg 07/24/24 09:00 07/29/24 08:41 Bupropion Hcl Xl (24 Hr) 150 Mg Tabcr PO 300 mg QAM OLGA Administration Buspirone HCl 15 mg 07/23/24 17:00 07/29/24 08:41 Buspirone Hcl 5 Mg Tablet PO 15 mg BID OLGA Administration Carvedilol 3.125 mg 07/23/24 21:00 07/24/24 04:37 Carvedilol 3.125 Mg Tablet PO Not Given Q12HR OLGA Cefdinir 300 mg 07/26/24 21:00 07/29/24 08:41 Cefdinir 300 Mg Capsule PO 07/29/24 21:01 300 mg Q12HR OLGA Administration Clonazepam 1 mg 07/23/24 16:30 Clonazepam (*Crx) 0.5 Mg Tablet PO DAILY PRN anxiety Docusate Sodium 100 mg 07/23/24 17:00 07/29/24 08:41 Docusate Sodium 100 Mg Capsule PO 100 mg BID OLGA Administration Duloxetine HCl 60 mg 07/24/24 09:00 07/29/24 08:41 Duloxetine Hcl 60 Mg Capsule.Dr PO 60 mg DAILY OLGA Administration Enoxaparin Sodium 40 mg 07/26/24 09:00 07/29/24 08:20 Enoxaparin 40 Mg/0.4 Ml Syringe SUB-Q Not Given DAILY OLGA Ibuprofen 800 mg in 200 mls @ 400 mls/hr 07/25/24 10:14 Caldolor 800 Mg/200 Ml IVPB Q6H PRN Breakthrough Pain Rated 1-3 or NPO Lactated Ringer's 1,000 mls @ 150 mls/hr 07/29/24 11:15 07/29/24 12:26 Lr - Lactated Ringers Iv IV CONT 150 mls/hr .[id number] OLGA Infusion Labetalol HCl 20 mg 07/25/24 14:05 Labetalol Hcl Inj 100 Mg/20 Ml Vial IV PUSH Q4H PRN Hypertension Lisinopril 40 mg 07/25/24 21:00 07/28/24 21:31 Lisinopril 20 Mg Tablet PO 40 mg HS OLGA Administration Metronidazole 500 mg 07/26/24 14:00 07/29/24 05:23 Metronidazole 500 Mg Tablet PO 07/29/24 22:01 500 mg Q8HR OLGA Administration Naloxone HCl 0.1 mg 07/25/24 10:14 Naloxone Hcl 0.4 Mg/Ml Vial IV PUSH Q2M PRN Opiate Reversal Ondansetron HCl 4 mg 07/25/24 10:14 Ondansetron Inj 4 Mg/2 Ml Vial IV PUSH Q4H PRN Nausea And Vomiting Oxycodone/Acetaminophen 1 tablet 07/25/24 10:14 Oxycodone/Acetaminophen (*Crx) 5-325 Mg Tablet PO Q4H PRN Pain Rated 4-6 Oxycodone/Acetaminophen 1 tab 07/25/24 10:14 Oxycodone/Acetaminophen (*Crx) 10-325 Mg Tablet PO Q6H PRN Pain Rated 7-10 Pantoprazole Sodium 40 mg 07/26/24 09:00 07/29/24 08:41 Pantoprazole 40 Mg Tablet PO 40 mg QAM OLGA Administration Pregabalin 200 mg 07/23/24 21:00 07/29/24 08:41 Pregabalin (*Crx) 50 Mg Capsule PO 200 mg Q12H OLGA Administration Tamsulosin HCl 0.4 mg 07/24/24 09:00 07/29/24 08:41 Tamsulosin Hcl 0.4 Mg Capsule PO 0.4 mg DAILY OLGA Administration Tizanidine HCl 4 mg 07/23/24 16:30 Tizanidine Hcl 4 Mg Tablet PO Q6H PRN muscle spasticity Trimethobenzamide HCl 200 mg 07/23/24 16:28 07/23/24 17:39 Trimethobenzamide Hcl 200 Mg/2 Ml Vial IM 200 mg Q6H PRN Administration Nausea And Vomiting Radiology Results: ITS Impressions Chest X-Ray 07/23/24 11:33 IMPRESSION: 1. No acute cardiopulmonary disease. Abdomen/Pelvis CT 07/23/24 12:44 IMPRESSION: 1. Age-indeterminate epiploic appendagitis along the descending colon. No other acute intra-abdominal/pelvic process. 2. Cholelithiasis. 3. Diverticulosis. 4. Prostatomegaly. Head CT 07/23/24 22:09 IMPRESSION: No acute intracranial findings. Chest/Abdomen/Pelvis CTA 07/23/24 23:15 IMPRESSION: CHEST: 1. No evidence of aneurysm or dissection. 2. No acute cardiopulmonary pathology. ABDOMEN/PELVIS: 1. No evidence of active bleeding seen. 2. Atherosclerotic changes at the origin of all branches of the aorta. 3. Cholelithiasis. 4. Small sliding hiatus hernia. 5. Other appearances are unchanged from previous examination. Labs Labs: Laboratory Results - last 24 hr 07/28/24 07/28/24 07/28/24 09:32 15:28 18:32 WBC RBC Hgb 8.2 L Hct 25.3 L MCV MCH MCHC RDW Plt Count MPV Absolute Retic 0.12 H Percent Retic 4.35 H Immature Retic Fraction 19.2 H Retic Hgb Content 35.4 Sodium Potassium Chloride Carbon Dioxide Anion Gap BUN Creatinine Estim Creat Clear Calc Estimated GFR Glucose Calcium Total Bilirubin AST ALT Alkaline Phosphatase Lactate Dehydrogenase 112 L Total Protein Albumin MONICO, IgG Interpret Neg MONICO, Poly Interpret Negative MONICO, Complement Interp Not Performed Crossmatch See Detail 07/29/24 10:37 WBC 6.7 RBC 3.13 L Hgb 9.4 L Hct 29.7 L MCV 94.9 MCH 30.0 MCHC 31.6 L RDW 17.4 H Plt Count 299 MPV 10.5 H Absolute Retic Percent Retic Immature Retic Fraction Retic Hgb Content Sodium 137 Potassium 3.8 Chloride 99 Carbon Dioxide 29 Anion Gap 9 BUN 9 Creatinine 1.02 Estim Creat Clear Calc 82 Estimated GFR > 60 Glucose 131 H Calcium 9.1 Total Bilirubin 1.2 AST 50 ALT 60 H Alkaline Phosphatase 116 Lactate Dehydrogenase Total Protein 6.0 L Albumin 3.8 MONICO, IgG Interpret MONICO, Poly Interpret MONICO, Complement Interp Crossmatch
--- NOTE | 2024-07-29 17:59 | PM.IMPN ---
Progress Note: A&P Assessment and Plan (1) Acute blood loss anemia: Code(s): D62 - Acute posthemorrhagic anemia Status: Acute Assessment and Plan: Patient syncopal, anemic could be related to GI bleed as he had melena/black tardy stools -could be related to sphincterotomy which was done on 07/20/2024 hb 7.3 s/p 1 unit pRBC still having melena stool (2) Melena: Code(s): K92.1 - Melena Status: Acute Assessment and Plan: As above -appreciate GI evaluation and recommendation -underwent EGD on 07/29 and no evidence of bleeding -Protonix 40mg bid -following GI recommendation (3) Acute kidney injury: Code(s): N17.9 - Acute kidney failure, unspecified Status: Acute Assessment and Plan: rsolved likely from hypovolemia regarding hemorrhagic shock (4) Cholelithiasis: Code(s): K80.20 - Calculus of gallbladder without cholecystitis without obstruction Status: Acute Assessment and Plan: Patient with cholelithiasis -surgery following the patient -07/25: Patient has been taken to the OR for cholecystectomy (5) Elevated liver enzymes: Code(s): R74.8 - Abnormal levels of other serum enzymes Status: Acute Assessment and Plan: resolvigng from hemorrhagic shock (6) Weakness: Code(s): R53.1 - Weakness Status: Acute Assessment and Plan: States he feels better and perked up after fluids and packed RBCs (7) Sepsis: Qualifiers: Sepsis type: sepsis due to unspecified organism Sepsis acute organ dysfunction status: without acute organ dysfunction Qualified Code(s): A41.9 - Sepsis, unspecified organism Code(s): A41.9 - Sepsis, unspecified organism Status: Acute Assessment and Plan: Hypotension multifactorial, likely related to decreased p.o. intake, GI bleed,, infection -continue cefepime, Flagyl (07/23) now on Cefidinir and Flagyl monitor (8) Syncope: Code(s): R55 - Syncope and collapse Status: Acute Assessment and Plan: Syncope could be related to generalized weakness, hypotension, vasovagal, anemia -patient is more awake, alert now hemodynamically stable -will have PT/OT evaluate the patient Plan DVT prophylaxis: SCDs, no chemoprophylaxis likely related to be GI bleed Stress ulcer prophylaxis: Protonix IV q.12 hours Code Status: Full code Subjective Date/time seen: 07/29/24 17:59 Interval history: Patient underwent EGD and no evidence of any active or recent bleeding. Patient is concerned about his hemoglobin. Will order FOBT and if positive will undergo tagged RBC scan. Review of Systems Review of Systems: 12 systems were reviewed and are negative except for as per HPI. All systems reviewed & are unremarkable except as noted in HPI and below Exam Narrative: General: Pleasant gentleman in no acute distress HEENT:? Pupils equal reactive, sclera is clear, moist oral mucosa Neck:? Supple, thick neck Respiratory:? Clear to auscultation bilaterally, decreased at bases, no wheezing or rales, adequate air entry Cardiac:? S1-S2 is normal, regular rate and rhythm Abdomen:? Soft, obese, tender to palpation in the right upper quadrant also tender in right lower quadrant, normoactive bowel sound Extremities:? Trace edema, palpable pedal pulses Neuro:? Patient is awake, alert, oriented, nonfocal. Able to answer questions appropriately and follows simple commands in all extremities Skin:? No skin issues Psych:? Normal mentation and affect Objective Data Vital Signs Vital Signs: Vital Signs - 24 hr 07/28/24 22:00 07/28/24 23:02 07/29/24 02:01 Temperature 96.4 F L Pulse Rate 63 68 70 Respiratory Rate 16 Blood Pressure 117/91 H Pulse Oximetry 97 98 98 Oxygen Delivery 07/29/24 04:09 07/29/24 05:22 07/29/24 08:00 Temperature 96.2 F L Pulse Rate 75 63 Respiratory Rate 20 Blood Pressure 156/76 H Pulse Oximetry 98 100 Oxygen Delivery Room Air 07/29/24 11:16 07/29/24 12:29 07/29/24 12:39 Temperature 96.7 F L Pulse Rate 65 67 62 Respiratory Rate 20 20 20 Blood Pressure 122/71 125/65 135/70 Pulse Oximetry 97 100 100 Oxygen Delivery Room Air Room Air Room Air 07/29/24 12:49 07/29/24 14:00 Temperature 97.3 F L Pulse Rate 63 69 Respiratory Rate 20 18 Blood Pressure 140/68 136/70 Pulse Oximetry 100 100 Oxygen Delivery Room Air Intake/Output Intake/Output: Intake & Output 05/1907/27/24 07/28/24 07/29/24 23:59 23:59 23:59 23:59 Intake Total 3765.0 970 2696 674 Output Total 1500 4 Balance 2265.0 970 2692 674 Meds/Results Medications: Active Medications Generic Name Dose Route Start Last Admin Trade Name Freq PRN Reason Stop Dose Admin Acetaminophen 500 mg 07/25/24 10:14 07/27/24 05:08 Acetaminophen 500 Mg Tablet PO 500 mg Q6H PRN Administration Pain Rated 1-3 Amlodipine Besylate 5 mg 07/25/24 21:00 07/28/24 21:31 Amlodipine Besylate 5 Mg Tablet PO 5 mg HS OLGA Administration Atorvastatin Calcium 20 mg 07/23/24 21:00 07/28/24 21:31 Atorvastatin 20 Mg Tablet PO 20 mg HS OLGA Administration Bupropion HCl 300 mg 07/24/24 09:00 07/29/24 08:41 Bupropion Hcl Xl (24 Hr) 150 Mg Tabcr PO 300 mg QAM OLGA Administration Buspirone HCl 15 mg 07/23/24 17:00 07/29/24 17:15 Buspirone Hcl 5 Mg Tablet PO 15 mg BID OLGA Administration Carvedilol 3.125 mg 07/23/24 21:00 07/24/24 04:37 Carvedilol 3.125 Mg Tablet PO Not Given Q12HR OLGA Cefdinir 300 mg 07/26/24 21:00 07/29/24 08:41 Cefdinir 300 Mg Capsule PO 07/29/24 21:01 300 mg Q12HR OLGA Administration Clonazepam 1 mg 07/23/24 16:30 Clonazepam (*Crx) 0.5 Mg Tablet PO DAILY PRN anxiety Docusate Sodium 100 mg 07/23/24 17:00 07/29/24 17:15 Docusate Sodium 100 Mg Capsule PO 100 mg BID OLGA Administration Duloxetine HCl 60 mg 07/24/24 09:00 07/29/24 08:41 Duloxetine Hcl 60 Mg Capsule.Dr PO 60 mg DAILY OLGA Administration Enoxaparin Sodium 40 mg 07/26/24 09:00 07/29/24 08:20 Enoxaparin 40 Mg/0.4 Ml Syringe SUB-Q Not Given DAILY OLGA Ibuprofen 800 mg in 200 mls @ 400 mls/hr 07/25/24 10:14 Caldolor 800 Mg/200 Ml IVPB Q6H PRN Breakthrough Pain Rated 1-3 or NPO Labetalol HCl 20 mg 07/25/24 14:05 Labetalol Hcl Inj 100 Mg/20 Ml Vial IV PUSH Q4H PRN Hypertension Lisinopril 40 mg 07/25/24 21:00 07/28/24 21:31 Lisinopril 20 Mg Tablet PO 40 mg HS OLGA Administration Metronidazole 500 mg 07/26/24 14:00 07/29/24 17:16 Metronidazole 500 Mg Tablet PO 07/29/24 22:01 500 mg Q8HR OLGA Administration Naloxone HCl 0.1 mg 07/25/24 10:14 Naloxone Hcl 0.4 Mg/Ml Vial IV PUSH Q2M PRN Opiate Reversal Ondansetron HCl 4 mg 07/25/24 10:14 Ondansetron Inj 4 Mg/2 Ml Vial IV PUSH Q4H PRN Nausea And Vomiting Oxycodone/Acetaminophen 1 tablet 07/25/24 10:14 Oxycodone/Acetaminophen (*Crx) 5-325 Mg Tablet PO Q4H PRN Pain Rated 4-6 Oxycodone/Acetaminophen 1 tab 07/25/24 10:14 Oxycodone/Acetaminophen (*Crx) 10-325 Mg Tablet PO Q6H PRN Pain Rated 7-10 Pantoprazole Sodium 40 mg 07/26/24 09:00 07/29/24 08:41 Pantoprazole 40 Mg Tablet PO 40 mg QAM OLGA Administration Pregabalin 200 mg 07/23/24 21:00 07/29/24 08:41 Pregabalin (*Crx) 50 Mg Capsule PO 200 mg Q12H OLGA Administration Tamsulosin HCl 0.4 mg 07/24/24 09:00 07/29/24 08:41 Tamsulosin Hcl 0.4 Mg Capsule PO 0.4 mg DAILY OLGA Administration Tizanidine HCl 4 mg 07/23/24 16:30 Tizanidine Hcl 4 Mg Tablet PO Q6H PRN muscle spasticity Trimethobenzamide HCl 200 mg 07/23/24 16:28 07/23/24 17:39 Trimethobenzamide Hcl 200 Mg/2 Ml Vial IM 200 mg Q6H PRN Administration Nausea And Vomiting Radiology Results: ITS Impressions Chest X-Ray 07/23/24 11:33 IMPRESSION: 1. No acute cardiopulmonary disease. Abdomen/Pelvis CT 07/23/24 12:44 IMPRESSION: 1. Age-indeterminate epiploic appendagitis along the descending colon. No other acute intra-abdominal/pelvic process. 2. Cholelithiasis. 3. Diverticulosis. 4. Prostatomegaly. Head CT 07/23/24 22:09 IMPRESSION: No acute intracranial findings. Chest/Abdomen/Pelvis CTA 07/23/24 23:15 IMPRESSION: CHEST: 1. No evidence of aneurysm or dissection. 2. No acute cardiopulmonary pathology. ABDOMEN/PELVIS: 1. No evidence of active bleeding seen. 2. Atherosclerotic changes at the origin of all branches of the aorta. 3. Cholelithiasis. 4. Small sliding hiatus hernia. 5. Other appearances are unchanged from previous examination. Labs Labs: Laboratory Results - last 24 hr 07/28/24 07/29/24 18:32 10:37 WBC 6.7 RBC 3.13 L Hgb 9.4 L Hct 29.7 L MCV 94.9 MCH 30.0 MCHC 31.6 L RDW 17.4 H Plt Count 299 MPV 10.5 H Absolute Retic 0.12 H Percent Retic 4.35 H Immature Retic Fraction 19.2 H Retic Hgb Content 35.4 Sodium 137 Potassium 3.8 Chloride 99 Carbon Dioxide 29 Anion Gap 9 BUN 9 Creatinine 1.02 Estim Creat Clear Calc 82 Estimated GFR > 60 Glucose 131 H Calcium 9.1 Total Bilirubin 1.2 AST 50 ALT 60 H Alkaline Phosphatase 116 Lactate Dehydrogenase 112 L Total Protein 6.0 L Albumin 3.8 OMNICO, IgG Interpret Neg MONICO, Poly Interpret Negative MONICO, Complement Interp Not Performed Quality VTE Prophylaxis VTE prophylaxis: mechanical ordered Hospitalist [facility] Advance Care Plan I have confirmed that the patient's Advanced Care Plan is present, code status is documented, or surrogate decision maker is listed in patient medical record.: Yes Medication Reconciliation I have utilized all available resources to obtain, update and review the patients current medications (includes all prescriptions, OTC, herbals, cannabis, and nutritional supplements).: Yes
[2024-07-29] MEDS: amLODIPine BESYLATE 5 MG TABLET PO (21:06)
[2024-07-29] MEDS: carvediloL 3.125 MG TABLET PO (21:06)
[2024-07-29] MEDS: ATORVASTATIN 20 MG TABLET PO (21:06)
[2024-07-29] MEDS: lisinopriL 20 MG TABLET 40 MG PO (21:06)
[2024-07-29 21:24] LABS: IFOB Positive Control Positive; Immunochemical Fecal Occult Bl Positive (N)
[2024-07-30 05:23] VITALS: PULSE 80; O2SAT 98
[2024-07-30 06:00] VITALS: BP 128/69; PULSE 63; RESP 18; TEMP 36.5; O2SAT 100
[2024-07-30 06:16] LABS: Hematocrit 28.7 % (42.0-52.0); Hemoglobin 9.3 g/dL (14.0-18.0); Mean Corpuscular HGB Conc 32.4 g/dl (32-36); Mean Corpuscular Hemoglobin 30.2 pg (26-34); Mean Corpuscular Volume 93.2 fl (80-100); Mean Platelet Volume 10.4 fl (7.4-10.4); Platelet Count Result 291 k/mm3 (150-375); Red Blood Count 3.08 M/mm3 (4.6-6.20); Red Cell Distribution Width 17.2 % (11.5-14.5); White Blood Count 6.3 K/mm3 (4.5-10.0)
[2024-07-30 06:28] LABS: Alanine Aminotransferase 48 U/L (6-50); Albumin Level 3.5 g/dL (3.5-5.1); Alkaline Phosphatase 106 U/L (38-126); Anion Gap 4 mmol/L (4-12); Aspartate Amino Transferase 40 U/L (17-59); Blood Urea Nitrogen 9 mg/dL (9-20); Carbon Dioxide 32 mmol/L (22-30); Chloride 100 mmol/L (98-107); Estimated CRCL calculation 79 ml/min; Estimated Glomerular Filt Rate > 60; Glucose 100 mg/dL (65-110); Potassium 4.4 mmol/L (3.4-5.0); Sodium 136 mmol/L (137-145)
[2024-07-30] MEDS: PANTOPRAZOLE 40 MG TABLET PO (08:46)
[2024-07-30] MEDS: DULoxetine HCL 60 MG CAPSULE.DR PO (08:46)
[2024-07-30] MEDS: PREGABALIN (*CRX) 50 MG CAPSULE 200 MG PO (08:46)
[2024-07-30] MEDS: busPIRone HCL 5 MG TABLET 15 MG PO (08:46)
[2024-07-30] MEDS: TAMSULOSIN HCL 0.4 MG CAPSULE PO (08:46)
[2024-07-30] MEDS: DOCUSATE SODIUM 100 MG CAPSULE PO (08:46)
[2024-07-30] MEDS: buPROPion HCL XL (24 HR) 150 MG TABCR 300 MG PO (08:46)
[2024-07-30 08:47] VITALS: PULSE 74
[2024-07-30] MEDS: carvediloL 3.125 MG TABLET PO (08:47)
--- NOTE | 2024-07-30 10:15 | PCPTNOTE ---
Attempted PT evaluation, pt refused stating he is independent in the room and doing well. Pt denies having any PT needs at this time. Nurse can confirm pt is independent.
--- NOTE | 2024-07-30 11:30 | PCNWS ---
Weekly nutritional screen. Patient is tolerating current diet with adequate intake. No weight loss reported. No nutritional needs at this time.
[2024-07-30 14:00] VITALS: BP 118/62; PULSE 64; RESP 18; TEMP 36.9
--- NOTE | 2024-07-30 14:51 | PM.DS ---
DS: Admitting Diagnosis Discharge Date 07/30/2024 Admitting Diagnosis Nausea and vomiting DS: Discharge Diagnosis Discharge Diagnosis (1) Acute blood loss anemia: Code(s): D62 - Acute posthemorrhagic anemia Status: Acute Assessment and Plan: Please refer to hospital course for brief summary Patient syncopal, anemic could be related to GI bleed as he had melena/black tardy stools -could be related to sphincterotomy which was done on 07/20/2024 hb 7.3 s/p 1 unit pRBC still having melena stool (2) Melena: Code(s): K92.1 - Melena Status: Acute Assessment and Plan: As above -appreciate GI evaluation and recommendation -underwent EGD on 07/29 and no evidence of bleeding -Protonix 40mg bid -following GI recommendation (3) Acute kidney injury: Code(s): N17.9 - Acute kidney failure, unspecified Status: Acute Assessment and Plan: rsolved likely from hypovolemia regarding hemorrhagic shock (4) Cholelithiasis: Code(s): K80.20 - Calculus of gallbladder without cholecystitis without obstruction Status: Acute Assessment and Plan: Patient with cholelithiasis -surgery following the patient -07/25: Patient has been taken to the OR for cholecystectomy (5) Elevated liver enzymes: Code(s): R74.8 - Abnormal levels of other serum enzymes Status: Acute Assessment and Plan: resolvigng from hemorrhagic shock (6) Weakness: Code(s): R53.1 - Weakness Status: Acute Assessment and Plan: States he feels better and perked up after fluids and packed RBCs (7) Sepsis: Qualifiers: Sepsis type: sepsis due to unspecified organism Sepsis acute organ dysfunction status: without acute organ dysfunction Qualified Code(s): A41.9 - Sepsis, unspecified organism Code(s): A41.9 - Sepsis, unspecified organism Status: Acute Assessment and Plan: Hypotension multifactorial, likely related to decreased p.o. intake, GI bleed,, infection -continue cefepime, Flagyl (07/23) now on Cefidinir and Flagyl monitor (8) Syncope: Code(s): R55 - Syncope and collapse Status: Acute Assessment and Plan: Syncope could be related to generalized weakness, hypotension, vasovagal, anemia -patient is more awake, alert now hemodynamically stable -will have PT/OT evaluate the patient DS: Summary Hospital Course Hospital Course: Romario Bonds is a 73 year old male with past medical history of alcohol use, hypertension, hyperlipidemia, gout, cholelithiasis, obstructive sleep apnea, presented the ED on 07/23/2024 with complains of generalized weakness. Patient was recently admitted to [facility] from 07/15/2024 to 07/21/2024 a was admitted for elevated liver enzymes, choledocholithiasis and cholelithiasis along with sepsis and bacteremia -Streptococcus gallolyticus, patient was discharged home on 07/21/2024 on antibiotics for 2 days. He complained of generalized weakness, cold sweats without any nausea vomiting. Unable to take solids or liquids because he was feeling sick to the stomach. In the ER patient's WBC count was 10.8, hemoglobin of 9.0 (11.9 on 07/21). Sodium 133, BUN 38,, creatinine 1.66 total bili 1.6, AST 64, ALT 95, lipase 69. CT scan of the abdomen and pelvis showed epiploic appendagitis along the descending colon. Cholelithiasis, diverticulosis, prostatomegaly. Will patient was on the medical floor, he got up to the bedside commode to have a bowel movement which was dark tarry stools, patient had a syncopal episode and was unresponsive with hypotension. Patient was given IV fluid bolus and transferred to the ICU for further management. In the ICU patient was given additional IV fluids and albumin with improvement in blood pressures. Patient was also given 1 unit of packed RBCs for anemia. Patient was transferred to the ICU for further management on 07/24/2024 and later transferred from ICU. In regards to chronic cholecystitis with choledocholithiasis patient underwent laparoscopic cholecystectomy on 07/25/2024. In regards to anemia patient underwent EGD on 07/29/2024 no evidence of bleeding. Please refer to full report. As per GI patient blood thinner and can be resumed. I ordered a tagged RBC scan which shows no evidence of bleeding. Patient agrees to continue Xarelto and if any signs of bleeding, he will discuss with his outpatient steel checker and can consider Watchman device. Ordered CBC in a week to check his hemoglobin. Patient needs to go loosely follow up with Gastroenterology and sales and marketing analyst. Patient was also evaluated by oncologist who gave iron infusion and advised to follow-up with outpatient. On the day of discharge, the patient was seen and examined. Vital signs were stable. Physical exam were stable and labs were reviewed at length. Discharge instructions, medications, and follow-up appointments were discussed with the patient at length and all day questions were answered. ER warnings were given. Status at Discharge Cognitive/behavioral status at discharge: Stable Time Spent with Patient Time attestation: Total time spent providing and/or coordinating discharge services: 45 minutes Exam Narrative: General: Pleasant gentleman in no acute distress HEENT:? Pupils equal reactive, sclera is clear, moist oral mucosa Neck:? Supple, thick neck Respiratory:? Clear to auscultation bilaterally, decreased at bases, no wheezing or rales, adequate air entry Cardiac:? S1-S2 is normal, regular rate and rhythm Abdomen:? Soft, obese, tender to palpation in the right upper quadrant also tender in right lower quadrant, normoactive bowel sound Extremities:? Trace edema, palpable pedal pulses Neuro:? Patient is awake, alert, oriented, nonfocal. Able to answer questions appropriately and follows simple commands in all extremities Skin:? No skin issues Psych:? Normal mentation and affect DS: Data Data Completed and Pending Completed studies during hospitalization: Pending at discharge 07/25/24 08:24 Surgical [PTH] Routine Labs on day of discharge: Labs from last 24 hours 07/30/24 07/29/24 05:23 21:10 WBC 6.3 RBC 3.08 L Hgb 9.3 L Hct 28.7 L MCV 93.2 MCH 30.2 MCHC 32.4 RDW 17.2 H Plt Count 291 MPV 10.4 Sodium 136 L Potassium 4.4 Chloride 100 Carbon Dioxide 32 H Anion Gap 4 BUN 9 Creatinine 1.06 Estim Creat Clear Calc 79 Estimated GFR > 60 Glucose 100 Calcium 9.0 Total Bilirubin 1.0 AST 40 ALT 48 Alkaline Phosphatase 106 Total Protein 6.0 L Albumin 3.5 Stl Occult Blood (IFOB) Positive H Discharge Plan Discharge Attending physician on discharge: Leon Bartlett Consulting providers: Natasha Musa; Prakash Lin Discharging Clinician: Leon Bartlett Anticipated Discharge Date/Time: 07/30/24 14:39 Patient Disposition: Home Activity: may shower, no straining and as tolerated Diet: low fat Wound Care Instructions: incision open to air Discharge Instructions: Post op Lap Brian Instructions: 1. May shower or bathe, ok to wash over incisions with soap and water. 2. Call office for: -Wound increasingly painful or bleeding -Vomiting -Fever of greater than 101 degrees 3. Expect some blood on dressing and old blood on skin. 4. If no bowel movement for three days, take 1 oz. (30 ml) Milk of Magnesia, if no results, take Fleets enema. 5. No heavy lifting > 15-20 pounds for 2 weeks. 6. No driving for 3 days after discharge or while taking narcotic pain medications. 7. Up walking 10-30 minutes three times per day. 8. Call Dr. Hill office for follow-up appointment 2 weeks after discharge. Please follow-up with k 9 handler/ deputy in 2 weeks. In the event of shortness of breath, palpitation or chest pain please return to ED Please follow-up with sales and marketing analyst/oncologist in 2 weeks Gastroenterology is okay with resuming Xarelto. Patient need to discuss with his steel checker and discuss about Watchman device versus continuing Xarelto. Please follow closely with PCP Ordered CBC in a week to check his hemoglobin Patient Instructions: Antibiotic Form, Heart Failure (DC), Laparoscopic Cholecystectomy (DC) Patient Language: Mongolian Stand Alone Forms: General Discharge Information Follow-up/Referrals: Prakash Lin MD [Physician] - Dawson Haro MD [Physician] - 2 Weeks Levon Ruiz MD [Physician] - Discharge Medications: New oxycodone-acetaminophen [Percocet] 5-325 mg tablet 0.5 - 1 tablet PO Q4H PRN (Reason: pain) Qty: 10 0RF docusate sodium 100 mg Capsule 100 mg PO BID Qty: 30 0RF Continued tamsulosin 0.4 mg capsule 0.4 mg PO DAILY Patient Comments: QAM furosemide 20 mg tablet 20 mg PO DAILY Patient Comments: QAM buspirone 15 mg tablet 15 mg PO BID tadalafil 5 mg tablet 5 mg PO PRN PRN (Reason: sexual activity) sildenafil (pulm.hypertension) 20 mg tablet 20 mg PO PRN PRN (Reason: sexual activity) pregabalin 200 mg capsule 200 mg PO Q12H Repatha SureClick 140 mg/mL pen injector 140 mg SUBCUT .every other week Patient Comments: next dose 07/17/2024 Ozempic 0.25 mg or 0.5 mg (2 mg/3 mL) pen injector 0.25 mg SUBCUT WEEKLY clonazepam 1 mg tablet 1 mg PO DAILY PRN (Reason: anxiety) bupropion HCl 300 mg tablet extended release 24 hr 300 mg PO QAM amlodipine 5 mg tablet 5 mg PO DAILY Patient Comments: HS atorvastatin 20 mg tablet 20 mg PO DAILY Patient Comments: HS lisinopril 40 mg tablet 40 mg PO DAILY Patient Comments: HS rivaroxaban 20 mg tablet 20 mg PO DAILY Patient Comments: HS Rx Instructions: must administer with evening meal carvedilol 3.125 mg tablet 3.125 mg PO BID Rx Instructions: with meals felodipine 10 mg tablet extended release 24 hr 10 mg PO DAILY Patient Comments: QAM duloxetine 60 mg capsule,delayed release(DR/EC) 60 mg PO DAILY Patient Comments: QAM fluticasone propionate 50 mcg/actuation spray,suspension 1 spray INTRANASAL Q12H PRN (Reason: nasal congestion) tizanidine 4 mg capsule 4 mg PO Q6H PRN (Reason: muscle spasticity) Rx Instructions: do not exceed 3 doses per 24 hrs potassium chloride [K-Tab] 20 mEq tablet extended release 20 meq PO DAILY omeprazole 40 mg capsule,delayed release(DR/EC) 40 mg PO HS Discontinued metronidazole 500 mg Tablet 500 mg PO Q8HR 6 Days Qty: 18 0RF levofloxacin 750 mg tablet 750 mg PO DAILY Qty: 5 0RF Rx Instructions: Start 07/22 for 5 days Other Ambulatory Orders: Complete Blood Count no Diff (Routine) Timeframe: 1 Week Location: Determined by Patient Ordered By: Leon Bartlett Date of admission: 07/24/24 09:34 Primary Care Provider: Mirian Wallace Admitting Provider: Joya Nugent Attending physician on admission: Joya Nugent Condition: Stable
== END 2024-07-30 15:39 | disposition home or self-care (01) | DRG 417 ==
LOC: ANHED 11:12 → ANH3MEDSUR 15:31 → ANHICU 18:59 → ANHIMU 07-26 01:23 → ANH3MED 07-29 08:15 → ANHIMU 08-03 08:27
PROVIDERS: Emergency Medicine; Internal Medicine; Internal Medicine Gastroenterology; Internal Medicine Hematology & Oncology; Nurse Practitioner Gerontology; Surgery; Admitting Provider Internal Medicine; Emergency Provider Nurse Practitioner Family; Visit Provider General Practice
PROC: 0FT44ZZ Resection of Gallbladder, Percutaneous Endoscopic Approach (ICD-10-PCS; CPT 47562; principal; 2024-07-25 07:30)
PROC: 0DJ08ZZ Inspection of Upper Intestinal Tract, Via Natural or Artificial Opening Endoscopic (ICD-10-PCS; principal; 2024-07-29 13:00)
DX: K80.64 Calculus of gallbladder and bile duct with chronic cholecystitis without obstruction (principal); R57.8 Other shock; D62 Acute posthemorrhagic anemia; E87.1 Hypo-osmolality and hyponatremia; N17.9 Acute kidney failure, unspecified; K92.1 Melena; F10.10 Alcohol abuse, uncomplicated; K70.9 Alcoholic liver disease, unspecified; I44.0 Atrioventricular block, first degree; E86.0 Dehydration; F32.A Depression, unspecified; E78.5 Hyperlipidemia, unspecified; G47.33 Obstructive sleep apnea (adult) (pediatric); E86.1 Hypovolemia; K74.02 Hepatic fibrosis, advanced fibrosis; I10 Essential (primary) hypertension; R55 Syncope and collapse; Z87.891 Personal history of nicotine dependence; Z79.01 Long term (current) use of anticoagulants; E66.9 Obesity, unspecified; Z68.36 Body mass index [BMI] 36.0-36.9, adult
CPT/HCPCS: 36415; 36430; 70450; 71045; 71275; 74174; 74177; 78278; 80048; 80053; 81003; 82274; 82948; 83605; 83615; 83690; 83735; 84100; 84484; 85014; 85018; 85025; 85027; 85046; 85610; 85730; 86850; 86880; 86900; 86901; 86923; 87040; 87641; 88304; 93005; 93306; 96365; 96367; 96372; 96375; 97165; 99285; A9270; A9560; G0378; J0692; J1100; J1171; J1650; J1836; J2003; J2250; J2270; J2405; J2470; J2704; J3250; J3430; J3480; J7030; J7050; J7120; P9016; P9017; P9041; Q9967